=== PATIENT | male | born 1940 | race Caucasian/White ===

== ENCOUNTER 2017-04-21 09:50 | Inpatient (IN) ==
--- NOTE | 2017-04-21 10:02 | Emergency Department Note ---
Disposition Clinical Impression: Calculus of kidney Constipation Qualifiers: Constipation type: unspecified constipation type Qualified Code(s): K59.00 - Constipation, unspecified Disposition: Admitted As Inpatient Referrals: Jose Seymour DO [Primary Care Provider] - Forms: Work/School Release, ED Satisfaction Letter Abdominal Pain HPI - General Chief Complaint: ED Abdominal Pain Stated Complaint: abd pain s/p surgery Time Seen by Provider: 04/21/17 10:00 Source: patient Limitations: no limitations Nursing Notes Reviewed: Yes Vital Signs Reviewed: Yes - History of Present Illness HPI Narrative: Patient is a 76-year-old male who had a hernia repair 5 days ago was complaining of constipation. He states he called the office he increased his Colace dosings only tried 1 dose of MiraLAX is also tried [id number] laxatives which is minimal bowel movement. He states he is having diffuse abdominal pain and distention. Pt Subjective Complaint: abdominal pain Onset (ago): day(s) (5) Consistency: constant Location: diffuse Pain Severity: mild Pain Scale: 9 Quality: cramping, aching Radiation: none Migration to: no migration Improves with: nothing Worsens with: nothing Context: recent surgery/procedure Associated symptoms: Reports: constipation (very little stool in 5 days. ) - Related Data Home Medications Medication Instructions Recorded Confirmed Albuterol Sulfate [Albuterol 1 puff IH Q4H PRN 08/21/15 04/21/17 Inhaler] Atorvastatin Calcium [Lipitor] 20 mg PO 1700 08/21/15 04/21/17 Bupropion HCl [Wellbutrin Xl] 300 mg PO DAILY 08/21/15 04/21/17 Fluticasone/Salmeterol [Advair 1 each IH BID 08/21/15 04/21/17 250-50 Diskus] Insulin Glargine,Hum.rec.anlog 60 unit SQ HS 08/21/15 04/21/17 [Lantus Solostar] Loratadine [Claritin] 10 mg PO DAILY 08/21/15 04/21/17 Metoprolol [Lopressor] 25 mg PO BID 08/21/15 04/21/17 Pantoprazole Sodium 40 mg PO DAILY 08/21/15 04/21/17 Sertraline [Zoloft] 200 mg PO DAILY 08/21/15 04/21/17 Tamsulosin [Flomax] 0.4 mg PO HS 08/21/15 04/21/17 Tiotropium [Spiriva] 1 cap IH HS 08/21/15 04/21/17 Cholecalciferol (Vitamin D3) 2,000 unit PO DAILY 12/18/15 04/21/17 [Vitamin D3] Folic Acid 1 mg PO DAILY 12/18/15 04/21/17 Insulin LISPRO [Humalog] 15 unit SQ TIDWM 06/19/16 04/21/17 Rivaroxaban [Xarelto] 20 mg PO 1700 10/30/16 04/21/17 [place]-3/Dha/Epa/Fish Oil [Fish Oil 1 cap PO TID 12/04/16 04/21/17 1,000 mg Softgel] Oxygen 2 l NS HS 12/04/16 04/21/17 Ferrous Sulfate 325 mg PO 1700 04/16/17 04/21/17 Furosemide [Lasix] 20 mg PO DAILY PRN 04/16/17 04/21/17 Magnesium Oxide [Magnesium] 400 mg PO BID 04/16/17 04/21/17 Losartan/HCTZ [Hyzaar 50-12.5 1 tab PO DAILY 04/21/17 04/21/17 Tablet] Previous Rx's Medication Instructions Recorded Clopidogrel [Plavix] 75 mg PO DAILY #30 tablet 06/20/16 Nitroglycerin 0.4 mg SL Q5MIN PRN #25 tab.subl 06/20/16 Ascorbic Acid [Vitamin C] 500 mg PO HS #30 tablet 11/03/16 Potassium Chloride 10 meq PO DAILY #30 tab.er.prt 11/03/16 Tramadol HCl [Ultram] 50 mg PO BID PRN #20 tab 04/16/17 Allergies Allergy/AdvReac Type Severity Reaction Status Date / Time codeine Allergy Difficulty Verified 04/21/17 09:58 Breathing Homatropine AdvReac Itching Verified 04/21/17 09:58 hydrocodone AdvReac Itching Verified 04/21/17 09:58 All systems ED: reviewed and negative except as stated. Constitutional: Denies: fever, chills Cardiovascular: Denies: chest pain, dyspnea on exertion, orthopnea Gastrointestinal: Denies: nausea, vomiting, hematemesis Genitourinary: Reports: urgency (but feels like he cant urinate) Abdominal Pain PMH - Past Medical History Medical history: Reports: atrial fibrillation, cancer, COPD, coronary artery disease, diabetes, GERD, hyperlipidemia, hypertension, renal disease, other Male Surgical History: Reports: appendectomy, cholecystectomy, herniorrhaphy, pacemaker/AICD Psychiatric history: Reports: anxiety, depression - Social History Smoking status: Never smoker Alcohol use: Reports: none Drug use: Reports: none Physical Exam - General Limitations: no limitations General appearance: alert, in no apparent distress - Head Head exam: atraumatic, normocephalic, normal inspection - Eye Eye exam: Present: normal appearance, PERRL, EOMI - Expanded Eye Exam Pupils: Left: reactive - ENT ENT exam: normal exam, normal oropharynx, mucous membranes moist - Expanded ENT Exam External ear exam: Present: normal external inspection Mouth exam: Present: normal external inspection Teeth exam: Present: normal inspection Throat exam: Present: normal inspection - Neck Neck exam: Present: normal inspection, full ROM, trachea midline - Chest Chest inspection: Present: normal inspection, symmetric chest wall rise - Respiratory Respiratory exam: Present: normal lung sounds bilaterally - Cardiovascular Cardiovascular exam: Present: regular rate, normal rhythm, normal heart sounds - Abdominal Exam Abdominal exam: Present: soft, distention, normal bowel sounds. Absent: guarding, rebound Abdominal tenderness: Present: diffuse, mild - Extremities Exam Extremities exam: Present: normal inspection, full ROM. Absent: tenderness, pedal edema - Expanded Upper Extremity Exam Shoulder exam: Present: normal inspection, full ROM Arm exam: Present: normal inspection, full ROM Elbow exam: Present: normal inspection, full ROM Forearm/Wrist exam: Present: normal inspection, full ROM Hand exam: Present: normal inspection, full ROM Vascular exam: Normal: capillary refill, radial pulse - Expanded Lower Extremity Exam Hip/Pelvis exam: Present: normal inspection, full ROM Upper leg exam: Present: normal inspection, full ROM Knee exam: Present: normal inspection, full ROM Lower leg exam: Present: normal inspection, full ROM Ankle exam: Present: normal inspection, full ROM Foot/toe exam: Present: normal inspection, full ROM Neurovascular/Tendon exam: Absent: motor deficit, sensory deficit, tendon deficit - Back Exam Back exam: Present: normal inspection, full ROM. Absent: tenderness - Neurological Exam Neurological exam: Present: alert, oriented X3 - Expanded Neurological Exam Patient oriented to: Present: person, place, time Coma Scale Eye Opening: Spontaneous Coma Scale Motor Response: Obeys Commands Coma Scale Verbal Response: Oriented Coma Scale Total: 15 - Psychiatric Psychiatric exam: Present: normal affect, normal mood - Skin Skin exam: Present: warm, dry, intact, normal color Course Course Narrative: Dr. Kruse and also Dr. Archuleta both made aware of the patient patient has a 6 mm right ureteral stone and constipation has been taking postop pain medication Vital Signs Temperature 97.7 F 04/21/17 09:55 Pulse Rate 74 04/21/17 09:55 Respiratory Rate 16 04/21/17 09:55 Blood Pressure 124/65 04/21/17 09:55 O2 Sat by Pulse Oximetry 98 04/21/17 09:55 Temperature 97.7 F 04/21/17 09:55 Pulse Rate 83 04/21/17 13:08 Respiratory Rate 18 04/21/17 13:08 Blood Pressure 136/87 04/21/17 13:08 O2 Sat by Pulse Oximetry 95 04/21/17 13:08 Oxygen Delivery Oxygen Delivery Room Air Abdominal Pain - Differential Diagnosis Differential Diagnosis: Likely: calculus of kidney, constipation, colonic obstruction, diverticulitis, diverticulosis, ischemic bowel - Medical Records Medical records reviewed: Yes I reviewed the patient's medical records. - Lab Data Lab results reviewed: Yes I reviewed the patient's lab results. Result diagrams: 04/21/17 10:10 04/21/17 10:10 Lab Results 04/21/17 04/21/17 04/21/17 Range/Units 10:10 10:10 10:10 WBC 12.3 H (4.3-11.1) K/mcL RBC 4.91 (4.19-5.50) M/mcL Hgb 12.5 L (12.9-16.9) g/dL Hct 39.2 (37.5-50.1) % MCV 79.8 L (83.0-100.0) fL MCH 25.5 L (28.0-33.3) pg MCHC 31.9 (31.6-35.5) g/dL RDW 18.7 H (11.5-14.5) % Plt Count 201 (140-400) K/mcL MPV 9.6 (9.4-12.4) fL Immature Gran % 0.2 (0-4) % Seg Neutrophils % 85.0 % Lymphocytes % 7.8 % Monocytes % 5.3 % Eosinophils % 1.4 % Basophils % 0.3 % Neutrophils # 10.4 H (1.6-8.9) K/mcL Lymphocytes # 1.0 (0.6-4.6) K/mcL Monocytes # 0.7 (0.0-1.3) K/mcL Eosinophils # 0.2 (0.0-0.6) K/mcL Basophils # 0.0 (0.0-0.2) K/mcL PT 15.3 H (9.4-12.1) Seconds INR 1.4 APTT 36.5 H (26.0-36.0) Seconds Sodium 135 L (136-145) mEq/L Potassium 4.0 (3.5-4.5) mEq/L Chloride 98 (98-109) mEq/L Carbon Dioxide 30 H (19-29) mEq/L BUN 24 (8-26) mg/dL Creatinine 1.22 (0.72-1.25) mg/dL Est GFR ( Amer) > 60 (> 60) Est GFR (Non-Af Amer) 58 L (> 60) BUN/Creatinine Ratio 20 (6-26) Glucose 88 (70-99) mg/dL Calculated Osmolality 283 (280-300) Lactic Acid (0.5-2.2) mmol/L Calcium 9.9 (8.6-10.8) mg/dL Total Bilirubin 0.9 (0.2-1.2) mg/dL Direct Bilirubin 0.4 (0.0-0.5) mg/dL Indirect Bilirubin 0.5 (0.0-1.2) mg/dL AST 12 (5-34) Units/L ALT 14 (0-55) Units/L Alkaline Phosphatase 61 (38-126) Units/L Serum Total Protein 7.5 (6.0-8.3) g/dL Albumin 3.8 (3.5-5.0) g/dL Globulin 3.7 H (2.4-3.5) g/dL Albumin/Globulin Ratio 1.0 L (1.1-2.2) Amylase 29 (25-125) Units/L Lipase 17 (8-78) Units/L // Range/Units 10:10 WBC (4.3-11.1) K/mcL RBC (4.19-5.50) M/mcL Hgb (12.9-16.9) g/dL Hct (37.5-50.1) % MCV (83.0-100.0) fL MCH (28.0-33.3) pg MCHC (31.6-35.5) g/dL RDW (11.5-14.5) % Plt Count (140-400) K/mcL MPV (9.4-12.4) fL Immature Gran % (0-4) % Seg Neutrophils % % Lymphocytes % % Monocytes % % Eosinophils % % Basophils % % Neutrophils # (1.6-8.9) K/mcL Lymphocytes # (0.6-4.6) K/mcL Monocytes # (0.0-1.3) K/mcL Eosinophils # (0.0-0.6) K/mcL Basophils # (0.0-0.2) K/mcL PT (9.4-12.1) Seconds INR APTT (26.0-36.0) Seconds Sodium (136-145) mEq/L Potassium (3.5-4.5) mEq/L Chloride (98-109) mEq/L Carbon Dioxide (19-29) mEq/L BUN (8-26) mg/dL Creatinine (0.72-1.25) mg/dL Est GFR ( Amer) (> 60) Est GFR (Non-Af Amer) (> 60) BUN/Creatinine Ratio (6-26) Glucose (70-99) mg/dL Calculated Osmolality (280-300) Lactic Acid 1.5 (0.5-2.2) mmol/L Calcium (8.6-10.8) mg/dL Total Bilirubin (0.2-1.2) mg/dL Direct Bilirubin (0.0-0.5) mg/dL Indirect Bilirubin (0.0-1.2) mg/dL AST (5-34) Units/L ALT (0-55) Units/L Alkaline Phosphatase (38-126) Units/L Serum Total Protein (6.0-8.3) g/dL Albumin (3.5-5.0) g/dL Globulin (2.4-3.5) g/dL Albumin/Globulin Ratio (1.1-2.2) Amylase (25-125) Units/L Lipase (8-78) Units/L - Radiology Data Radiology results reviewed: Yes I reviewed the patient's radiology results.
[2017-04-21 10:23] LABS: Basophils % 0.3 %; Eosinophils # 0.2 K/mcL (0.0-0.6); Eosinophils % 1.4 %; Hematocrit 39.2 % (37.5-50.1); Hemoglobin 12.5 g/dL (12.9-16.9); Immature Granulocytes % 0.2 % (0-4); Lymphocytes % 7.8 %; Mean Corpuscular HGB Conc 31.9 g/dL (31.6-35.5); Mean Corpuscular Hemoglobin 25.5 pg (28.0-33.3); Mean Corpuscular Volume 79.8 fL (83.0-100.0); Mean Platelet Volume 9.6 fL (9.4-12.4); Monocytes # 0.7 K/mcL (0.0-1.3); Monocytes % 5.3 %; Neutrophils # 10.4 K/mcL (1.6-8.9); Platelet Count 201 K/mcL (140-400); Red Blood Count 4.91 M/mcL (4.19-5.50); Red Cell Distribution Width 18.7 % (11.5-14.5)
[2017-04-21 10:24] LABS: INR 1.4; Prothrombin Time 15.3 Seconds (9.4-12.1)
[2017-04-21 10:26] LABS: Activated Partial Thrombo Time 36.5 Seconds (26.0-36.0)
[2017-04-21 10:31] LABS: Alanine Aminotransferase 14 Units/L (0-55); Albumin 3.8 g/dL (3.5-5.0); Alkaline Phosphatase 61 Units/L (38-126); Amylase 29 Units/L (25-125); Aspartate Amino Transferase 12 Units/L (5-34); BUN/Creatinine Ratio 20 (6-26); Bilirubin,Direct 0.4 mg/dL (0.0-0.5); Bilirubin,Indirect 0.5 mg/dL (0.0-1.2); Bilirubin,Total 0.9 mg/dL (0.2-1.2); Blood Urea Nitrogen 24 mg/dL (8-26); Calcium 9.9 mg/dL (8.6-10.8); Carbon Dioxide 30 mEq/L (19-29); Chloride 98 mEq/L (98-109); Globulin 3.7 g/dL (2.4-3.5); Glucose 88 mg/dL (70-99); Lipase 17 Units/L (8-78); Osmolality,Calculated 283 (280-300); Sodium 135 mEq/L (136-145); Total Protein 7.5 g/dL (6.0-8.3); eGFR For African Americans > 60 (> 60); eGFR For Non-African Americans 58 (> 60)
[2017-04-21] MEDS ORDERED: Milk and Molasses Enema 200 ML RC ONE (11:19)
[2017-04-21] MEDS ORDERED: *HR* Morphine 2 MG/ML SYRINGE IVP ONE (12:14)
[2017-04-21] MEDS ORDERED: Ondansetron 4 MG/2 ML VIAL IVP ONE (12:14)
[2017-04-21] MEDS ORDERED: traMADol 50 MG TABLET PO PRN (14:38)
[2017-04-21] MEDS ORDERED: *HR* Dextrose 50 % in Water (Syg) 50 ML SYRINGE IVP PRN (14:43)
[2017-04-21] MEDS ORDERED: D5% in Water 1,000 ML IVC PRN (14:43)
[2017-04-21] MEDS ORDERED: Dextrose Gel 15 GM PO PRN ×2 (14:43)
[2017-04-21] MEDS ORDERED: Naloxone 0.4 MG/ML INJ IVP PRN (14:44)
[2017-04-21] MEDS ORDERED: Ondansetron 4 MG/2 ML VIAL IVP PRN (14:44)
[2017-04-21] MEDS ORDERED: *HR* Morphine 2 MG/ML SYRINGE IVP PRN (14:44)
--- NOTE | 2017-04-21 15:05 | Urology - Consult Note ---
Date of Encounter: 04/21/17 Time of Encounter: 15:04 Urology CN:HPI Consult date: 04/21/17 Reason for consult Urology: Other (bladder calculus) Requesting physician: Jordon Browning History of present illness: Darren is a 76 y/o male with recent lap surgery. has not had bm for 5-6 days and was having sig abd pain. CT was done which showed possible right ureteral stone. On review of ct from march and this one, this stone is a bladder calculus. no hydro present. Past Med Surg Social Fam HX - Past Medical History Medical history: atrial fibrillation, cancer, COPD, coronary artery disease, diabetes, GERD, hyperlipidemia, hypertension, renal disease, other Psychiatric history: anxiety, depression - Past Surgical History Surgical History: angioplasty/stent, appendectomy, cancer surgery, cataract, cholecystectomy, herniorrhaphy, pacemaker/AICD, pacemaker - Social History Smoking Status: Never smoker Smokeless Tobacco Status: No Alcohol use: none Drug use: none - Family History Father Living Status: Hx Family Cardiac Disorders: No Hx Family Respiratory Disorders: No Hx Family Cancer: No Hx Family GI Disorders: No Hx Family Endocrine Disorder: Yes (Diabetes.) Hx Family Neuromuscular Disorders: No Hx Family Neurologic Disorders: No Hx Family HEENT Disorders: No Hx Family Autoimmune Disorders: No Medications and Allergies Albuterol Sulfate [Albuterol Inhaler] 1 puff IH Q4H PRN 08/21/15 [History] Atorvastatin Calcium [Lipitor] 20 mg PO 1700 08/21/15 [History] Bupropion HCl [Wellbutrin Xl] 300 mg PO DAILY 08/21/15 [History] Fluticasone/Salmeterol [Advair 250-50 Diskus] 1 each IH BID 08/21/15 [History] Insulin Glargine,Hum.rec.anlog [Lantus Solostar] 60 unit SQ HS 08/21/15 [History ] Loratadine [Claritin] 10 mg PO DAILY 08/21/15 [History] Metoprolol [Lopressor] 25 mg PO BID 08/21/15 [History] Pantoprazole Sodium 40 mg PO DAILY 08/21/15 [History] Sertraline [Zoloft] 200 mg PO DAILY 08/21/15 [History] Tamsulosin [Flomax] 0.4 mg PO HS 08/21/15 [History] Tiotropium [Spiriva] 1 cap IH HS 08/21/15 [History] Cholecalciferol (Vitamin D3) [Vitamin D3] 2,000 unit PO DAILY 12/18/15 [History] Folic Acid 1 mg PO DAILY 12/18/15 [History] Insulin LISPRO [Humalog] 15 unit SQ TIDWM 06/19/16 [History] Clopidogrel [Plavix] 75 mg PO DAILY #30 tablet 06/20/16 [Rx] Nitroglycerin 0.4 mg SL Q5MIN PRN #25 tab.subl 06/20/16 [Rx] Rivaroxaban [Xarelto] 20 mg PO 1700 10/30/16 [History] Ascorbic Acid [Vitamin C] 500 mg PO HS #30 tablet 11/03/16 [Rx] Potassium Chloride 10 meq PO DAILY #30 tab.er.prt 11/03/16 [Rx] [place]-3/Dha/Epa/Fish Oil [Fish Oil 1,000 mg Softgel] 1 cap PO TID 12/04/16 [ History] Oxygen 2 l NS HS 12/04/16 [History] Ferrous Sulfate 325 mg PO 1700 04/16/17 [History] Furosemide [Lasix] 20 mg PO DAILY PRN 04/16/17 [History] Magnesium Oxide [Magnesium] 400 mg PO BID 04/16/17 [History] Tramadol HCl [Ultram] 50 mg PO BID PRN #20 tab 04/16/17 [Rx] Losartan/HCTZ [Hyzaar 50-12.5 Tablet] 1 tab PO DAILY 04/21/17 [History] Allergies codeine Allergy (Verified 04/21/17 09:58) Difficulty Breathing Homatropine Adverse Reaction (Verified 04/21/17 09:58) Itching hydrocodone Adverse Reaction (Verified 04/21/17 09:58) Itching Review of Systems - Constitutional no chills - EENT Nose, mouth and throat: no dizziness - Cardiovascular no chest pain - Respiratory no cough - Gastrointestinal abdominal pain Exam Initial Vital Signs Temp Pulse Resp BP Pulse Ox 97.7 F 74 16 124/65 98 04/21/17 09:55 04/21/17 09:55 04/21/17 09:55 04/21/17 09:55 04/21/17 09:55 - General physical appearance Present: well developed - Eyes Present: PERRL - ENT Present: normal nares - Neck Present: no masses - Respiratory Present: normal respiratory effort - Cardiovascular Cardiovascular exam IM: RRR - Abdomen Abdomen: Present: soft Urology Results - Labs 04/21/17 10:10 04/21/17 10:10 Abnormal lab results WBC 12.3 K/mcL (4.3-11.1) H 04/21/17 10:10 Hgb 12.5 g/dL (12.9-16.9) L 04/21/17 10:10 MCV 79.8 fL (83.0-100.0) L 04/21/17 10:10 MCH 25.5 pg (28.0-33.3) L 04/21/17 10:10 RDW 18.7 % (11.5-14.5) H 04/21/17 10:10 Neutrophils # 10.4 K/mcL (1.6-8.9) H 04/21/17 10:10 PT 15.3 Seconds (9.4-12.1) H 04/21/17 10:10 APTT 36.5 Seconds (26.0-36.0) H 04/21/17 10:10 Sodium 135 mEq/L (136-145) L 04/21/17 10:10 Carbon Dioxide 30 mEq/L (19-29) H 04/21/17 10:10 Est GFR (Non-Af Amer) 58 (> 60) L 04/21/17 10:10 Globulin 3.7 g/dL (2.4-3.5) H 04/21/17 10:10 Albumin/Globulin Ratio 1.0 (1.1-2.2) L 04/21/17 10:10 All other labs normal. - Imaging CT scan - abdomen: image reviewed CT scan - pelvis: image reviewed Consult Discharge Plan - Plan Referrals: Jose Seymour DO [Primary Care Provider] -
--- NOTE | 2017-04-21 15:06 | Event Note ---
Date of Encounter: 04/21/17 Time of Encounter: 15:05 Please link to consult note A/P 1. bladder stone - no urgent need for surgical removal. f/u with Dr. Alegre in 3-4 weeks for discussion of removal.
--- NOTE | 2017-04-21 15:06 | Internal Med History&Physical ---
Date of Encounter: 04/21/17 Time of Encounter: 15:03 Assessment and Plan (1) Ureteral calculus, right Current visit: Yes Status: Acute Right lower quadrant abdominal pain and CT imaging findings of right UVJ stone and support of diagnosis of symptomatic right ureteral stone. We will treat with IV morphine, IV fluids, urology consult was called by the ED. We will obtain urinalysis and culture if indicated. He is at high risk for morbidity mortality and complications due to IV controlled substances. (2) Constipation by delayed colonic transit Current visit: Yes Status: Acute No BM in 4 days. We will start senna and Colace. Rectal Dulcolax. Enema as needed. Gen. surgery was consulted due to recent laparoscopic hernia repair and concern for postop complication. (3) CAD (coronary artery disease), [place] coronary artery Current visit: No Status: Acute Continue with aspirin and Plavix. Qualifiers: [place] vs. transplanted heart: [place] heart Associated angina: without angina Qualified Code(s): I25.10 - Atherosclerotic heart disease of [place] coronary artery without angina pectoris (4) Age-related physical debility Current visit: No Status: Chronic (5) COPD (chronic obstructive pulmonary disease) Current visit: No Status: Chronic PT OT evaluation. Qualifiers: COPD type: unspecified COPD Qualified Code(s): J44.9 - Chronic obstructive pulmonary disease, unspecified (6) Afib Current visit: No Status: Chronic We will continue home dose of metoprolol. Continue with Xarelto anticoagulation. Qualifiers: Atrial fibrillation type: paroxysmal Qualified Code(s): I48.0 - Paroxysmal atrial fibrillation (7) DM2 (diabetes mellitus, type 2) Current visit: No Status: Chronic Diabetic diet, start Levemir. Pre-meal insulin and corrective sliding scale. 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 Internal Medicine - H&P: HPI Chief complaint: Abdominal pain Admitted From: Emergency Dept Plans for Post Hospital Care: Home History of present illness: Mr. Vizcarra is a 76 year old male with multiple medical comorbidities who presented to the hospital for abdominal pain. He had a laparoscopic hernia repair done 5 days ago. Since then he reported increasing right lower quadrant crampy abdominal pain, 3 days ago started getting much worse, additionally started having constipation and has not had a bowel movement for the last 4 days. He also reports decreased urinary flow but no hematuria or burning with urination or dysuria. He has been taking tramadol for pain with no relief. Upon evaluation in the emergency department he was found to have constipation and a right UVJ stone. He was referred for admission to our service. A 10 point review of systems was performed and positive [place] history of present illness, additionally positive for hearing loss and age-related vision impairment, positive for chronic hip pain. Otherwise negative. Family history positive for coronary artery disease in the patient's father Past Med Surg Social Fam HX - Past Medical History Medical history: atrial fibrillation, cancer, COPD, coronary artery disease, diabetes, GERD, hyperlipidemia, hypertension, renal disease, other Psychiatric history: anxiety, depression - Past Surgical History Surgical History: angioplasty/stent, appendectomy, cancer surgery, cataract, cholecystectomy, herniorrhaphy, pacemaker/AICD, pacemaker - Social History Smoking Status: Never smoker Smokeless Tobacco Status: No Alcohol use: none Drug use: none - Family History Father Living Status: Hx Family Cardiac Disorders: No Hx Family Respiratory Disorders: No Hx Family Cancer: No Hx Family GI Disorders: No Hx Family Endocrine Disorder: Yes (Diabetes.) Hx Family Neuromuscular Disorders: No Hx Family Neurologic Disorders: No Hx Family HEENT Disorders: No Hx Family Autoimmune Disorders: No Internal Medicine - H&P: Meds Albuterol Sulfate [Albuterol Inhaler] 1 puff IH Q4H PRN 08/21/15 [History] Atorvastatin Calcium [Lipitor] 20 mg PO 1700 08/21/15 [History] Bupropion HCl [Wellbutrin Xl] 300 mg PO DAILY 08/21/15 [History] Fluticasone/Salmeterol [Advair 250-50 Diskus] 1 each IH BID 08/21/15 [History] Insulin Glargine,Hum.rec.anlog [Lantus Solostar] 60 unit SQ HS 08/21/15 [History ] Loratadine [Claritin] 10 mg PO DAILY 08/21/15 [History] Metoprolol [Lopressor] 25 mg PO BID 08/21/15 [History] Pantoprazole Sodium 40 mg PO DAILY 08/21/15 [History] Sertraline [Zoloft] 200 mg PO DAILY 08/21/15 [History] Tamsulosin [Flomax] 0.4 mg PO HS 08/21/15 [History] Tiotropium [Spiriva] 1 cap IH HS 08/21/15 [History] Cholecalciferol (Vitamin D3) [Vitamin D3] 2,000 unit PO DAILY 12/18/15 [History] Folic Acid 1 mg PO DAILY 12/18/15 [History] Insulin LISPRO [Humalog] 15 unit SQ TIDWM 06/19/16 [History] Clopidogrel [Plavix] 75 mg PO DAILY #30 tablet 06/20/16 [Rx] Nitroglycerin 0.4 mg SL Q5MIN PRN #25 tab.subl 06/20/16 [Rx] Rivaroxaban [Xarelto] 20 mg PO 1700 10/30/16 [History] Ascorbic Acid [Vitamin C] 500 mg PO HS #30 tablet 11/03/16 [Rx] Potassium Chloride 10 meq PO DAILY #30 tab.er.prt 11/03/16 [Rx] [place]-3/Dha/Epa/Fish Oil [Fish Oil 1,000 mg Softgel] 1 cap PO TID 12/04/16 [ History] Oxygen 2 l NS HS 12/04/16 [History] Ferrous Sulfate 325 mg PO 1700 04/16/17 [History] Furosemide [Lasix] 20 mg PO DAILY PRN 04/16/17 [History] Magnesium Oxide [Magnesium] 400 mg PO BID 04/16/17 [History] Tramadol HCl [Ultram] 50 mg PO BID PRN #20 tab 04/16/17 [Rx] Losartan/HCTZ [Hyzaar 50-12.5 Tablet] 1 tab PO DAILY 04/21/17 [History] Allergies codeine Allergy (Verified 04/21/17 09:58) Difficulty Breathing Homatropine Adverse Reaction (Verified 04/21/17 09:58) Itching hydrocodone Adverse Reaction (Verified 04/21/17 09:58) Itching All Systems PM: A 10-system review of systems was performed and is negative for pertinent findings except as documented above in the HPI. - Constitutional Vitals: Temp Pulse Resp BP Pulse Ox 97.7 F 83 18 128/73 95 04/21/17 09:55 04/21/17 13:08 04/21/17 14:24 04/21/17 14:24 04/21/17 13:08 - Eye Eye exam: Present: PERRL, conjuntiva pink, sclera anicteric Pupils: Present: PERRL - Respiratory Respiratory exam: Present: CTAB. Absent: accessory muscle use, rales, rhonchi, wheezes - Cardiovascular Cardiovascular exam: Present: RRR, +S1, +S2. Absent: diastolic murmur, gallop, rubs, systolic murmur - GI/Abdominal GI/Abdominal exam: Present: normal bowel sounds, soft, no peritoneal signs. Absent: distended, guarding, tenderness Additional comments: Laparoscopy incisions appearing to be healing. - Extremities Exam Extremities exam: Present: warm, radial pulses palpable and symetrical. Absent : calf tenderness, cyanotic, pedal edema - Neurological Exam Neurological exam: Present: CN II-XII intact, oriented X3, no focal deficits. Absent: pronater drift, facial droop, speech deficit - Skin Skin exam: Present: dry, intact Internal Med - H&P Results - Labs CBC & Chem 7: 04/21/17 10:10 04/21/17 10:10
[2017-04-21 15:41] LABS: Bilirubin,Urine Negative (Negative); Blood,Urine Negative (Negative); Clarity,Urine Clear (Clear); Color,Urine Yellow (Yellow); Glucose,Urine (UA) Normal (Normal); Ketones,Urine Negative (Negative); Leukocyte Esterase,Urine Negative (Negative); Nitrite,Urine Negative (Negative); PH,Urine 6.5 pH Units (5.0-8.0); Protein,Urine Negative (Neg-Trace); Specific Gravity,Urine 1.016 (1.010-1.025); Urobilinogen,Urine Normal (Normal)
[2017-04-21] MEDS: 0.9 % Sodium Chloride 1,000 ML IVC SCH (15:41)
[2017-04-21] MEDS: Bisacodyl 10 MG RECTAL SUPPOSITORY RC SCH (15:42)
[2017-04-21] MEDS ORDERED: *HR* Rivaroxaban 10 MG TABLET PO SCH (17:00)
[2017-04-21] MEDS: Insulin LISPRO 300 UNITS/3 ML VIAL SQ SCH ×2 (18:21→18:22)
[2017-04-21] MEDS: Budesonide/Formoterol 80/4.5 MDI IH SCH (19:48)
[2017-04-21] MEDS: Sennosides/Docusate Sodium TABLET PO SCH (20:28)
[2017-04-21] MEDS: Magnesium Oxide 400 MG TABLET PO SCH (20:28)
[2017-04-21] MEDS ORDERED: Tiotropium 18 MCG inhalation IH SCH (21:00)
[2017-04-21] MEDS: Insulin DETEMIR 100 UNIT/ML X5UNITS SQ SCH (21:38)
[2017-04-22] MEDS: 0.9 % Sodium Chloride 1,000 ML IVC SCH (01:15)
[2017-04-22 05:09] LABS: Basophils % 0.3 %; Eosinophils # 0.1 K/mcL (0.0-0.6); Eosinophils % 1.4 %; Immature Granulocytes % 0.4 % (0-4); Lymphocytes # 0.9 K/mcL (0.6-4.6); Lymphocytes % 9.2 %; Mean Corpuscular HGB Conc 30.9 g/dL (31.6-35.5); Mean Corpuscular Hemoglobin 24.8 pg (28.0-33.3); Mean Corpuscular Volume 80.3 fL (83.0-100.0); Mean Platelet Volume 9.3 fL (9.4-12.4); Monocytes # 0.6 K/mcL (0.0-1.3); Monocytes % 6.6 %; Platelet Count 186 K/mcL (140-400); Red Blood Count 4.36 M/mcL (4.19-5.50); Red Cell Distribution Width 18.1 % (11.5-14.5); Segmented Neutrophils % 82.1 %
[2017-04-22 05:21] LABS: Hemoglobin 10.8 g/dL (12.9-16.9)
[2017-04-22 05:26] LABS: BUN/Creatinine Ratio 22 (6-26); Blood Urea Nitrogen 24 mg/dL (8-26); Carbon Dioxide 30 mEq/L (19-29); Chloride 101 mEq/L (98-109); Glucose 98 mg/dL (70-99); Osmolality,Calculated 288 (280-300); Potassium 3.8 mEq/L (3.5-4.5); Sodium 137 mEq/L (136-145); eGFR For African Americans > 60 (> 60); eGFR For Non-African Americans > 60 (> 60)
[2017-04-22 05:31] LABS: Calcium 8.4 mg/dL (8.6-10.8)
[2017-04-22] MEDS: Insulin LISPRO 300 UNITS/3 ML VIAL SQ SCH ×6 (07:44→15:44)
[2017-04-22] MEDS ORDERED: BuPROPion XL (24 HR) 150 MG TABLET PO SCH (09:00)
[2017-04-22] MEDS ORDERED: Losartan/HCTZ 50-12.5 TABLET PO SCH (09:00)
[2017-04-22] MEDS: Insulin DETEMIR 100 UNIT/ML X5UNITS SQ SCH (09:10)
[2017-04-22] MEDS: Magnesium Oxide 400 MG TABLET PO SCH (09:11)
[2017-04-22] MEDS: Bisacodyl 10 MG RECTAL SUPPOSITORY RC SCH (09:11)
[2017-04-22] MEDS: Sennosides/Docusate Sodium TABLET PO SCH (09:11)
--- NOTE | 2017-04-22 09:25 | Internal Med Progress Note ---
Date of Encounter: 04/22/17 Time of Encounter: 09:22 - Assessment and plan (1) Abdominal pain Current Visit: Yes Status: Acute Assessment and plan: Patient admitted for right lower quadrant pain. Apparently he is quite constipated after surgery. There was a confusion based on CT scan findings showed right UPJ stone however urology disagree with this finding and think stone is in the bladder and there is no hydronephrosis. Patient pain is treated symptomatically while we are trying to resolve constipation issue. Qualifiers: Abdominal location: right lower quadrant Qualified Code(s): R10.31 - Right lower quadrant pain (2) Calculus of kidney Current Visit: Yes Status: Acute Assessment and plan: As noted above strong as it actually in the bladder and there is no hydronephrosis urology has already seen the patient (3) Constipation by delayed colonic transit Current Visit: Yes Status: Acute Assessment and plan: Patient is on multiple stool softeners (4) Afib Current Visit: No Status: Chronic Qualifiers: Atrial fibrillation type: paroxysmal Qualified Code(s): I48.0 - Paroxysmal atrial fibrillation (5) DM2 (diabetes mellitus, type 2) Current Visit: No Status: Chronic Qualifiers: Diabetes mellitus complication status: with hyperglycemia Diabetes mellitus quality control lead insulin use: with quality control lead use Qualified Code(s): E11.65 - Type 2 diabetes mellitus with hyperglycemia; Z79.4 - detention (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 insulin - Subjective Interval history: Mr. Maria Antonia Vizcarra is a 76-year-old male who presents to the herniorrhaphy and has developed constipation and last 4 days. He came in with right lower quadrant pain and initial CAT scan showed UPJ stone however as neurology reviewed the CAT scan and they felt that the stone is rather in the bladder. Patient has been started on enema to resolve constipation. - Constitutional Vitals: Temp Pulse Resp BP Pulse Ox 98.2 F 69 18 117/64 93 04/22/17 07:28 04/22/17 07:28 04/22/17 07:28 04/22/17 07:28 04/22/17 07:28 - Head Head exam: Present: atraumatic, normocephalic - Eye Eye exam: Present: PERRL, conjuntiva pink, sclera anicteric Pupils: Present: PERRL - Neck Neck exam general surgery: Present: supple, trachea midline. Absent: lymphadenopathy - Respiratory Respiratory exam: Present: CTAB. Absent: accessory muscle use, rales, rhonchi, wheezes - Cardiovascular Cardiovascular exam: Present: RRR, +S1, +S2. Absent: diastolic murmur, gallop, rubs, systolic murmur - Extremities Exam Extremities exam: Present: warm, radial pulses palpable and symetrical. Absent : calf tenderness, cyanotic, pedal edema - Neurological Exam Neurological exam: Present: CN II-XII intact, oriented X3, no focal deficits. Absent: pronater drift, facial droop, speech deficit - Skin Skin exam: Present: dry, intact Internal Medicine: Result - Labs CBC & Chem 7: 04/22/17 04:20 04/22/17 04:20 Labs: Short CBC 04/22/17 Range/Units 04:20 WBC 9.7 (4.3-11.1) K/mcL Hgb 10.8 L D (12.9-16.9) g/dL Hct 35.0 L (37.5-50.1) % Plt Count 186 (140-400) K/mcL Neutrophils # 8.0 (1.6-8.9) K/mcL BMP 04/22/17 04:20 Sodium 137 Potassium 3.8 Chloride 101 Carbon Dioxide 30 H BUN 24 Creatinine 1.09 Glucose 98 Calcium 8.4 L D - ABG Interpretation ABG results: PT/INR, D-dimer PT 15.3 Seconds (9.4-12.1) H 04/21/17 10:10 Consult Discharge Plan - Plan Referrals: Jose Seymour DO [Primary Care Provider] -
[2017-04-22] MEDS: Budesonide/Formoterol 80/4.5 MDI IH SCH (10:55)
[2017-04-22 11:15] VITALS: BP 107/53
[2017-04-22] MEDS ORDERED: 0.9 % Sodium Chloride 1,000 ML IVC SCH (12:45)
--- NOTE | 2017-04-22 15:06 | Discharge Summary ---
Date of Encounter: 04/22/17 Time of Encounter: 15:04 - Discharge Diagnosis (1) Abdominal pain Priority: Primary Status: Acute Qualifiers: Abdominal location: right lower quadrant Qualified Code(s): R10.31 - Right lower quadrant pain (2) Calculus of kidney Priority: Secondary Status: Acute (3) Constipation by delayed colonic transit Priority: Primary Status: Acute (4) Afib Priority: Secondary Status: Chronic Qualifiers: Atrial fibrillation type: paroxysmal Qualified Code(s): I48.0 - Paroxysmal atrial fibrillation (5) DM2 (diabetes mellitus, type 2) Priority: Secondary Status: Chronic Qualifiers: Diabetes mellitus complication status: with hyperglycemia Diabetes mellitus snf insulin use: with snf use Qualified Code(s): E11.65 - Type 2 diabetes mellitus with hyperglycemia; Z79.4 - staff educator (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 insulin - Discharge Medications Home Medications: Albuterol Sulfate [Albuterol Inhaler] 1 puff IH Q4H PRN 08/21/15 [History] Atorvastatin Calcium [Lipitor] 20 mg PO 1700 08/21/15 [History] Bupropion HCl [Wellbutrin Xl] 300 mg PO DAILY 08/21/15 [History] Fluticasone/Salmeterol [Advair 250-50 Diskus] 1 each IH BID 08/21/15 [History] Insulin Glargine,Hum.rec.anlog [Lantus Solostar] 60 unit SQ HS 08/21/15 [History ] Loratadine [Claritin] 10 mg PO DAILY 08/21/15 [History] Metoprolol [Lopressor] 25 mg PO BID 08/21/15 [History] Pantoprazole Sodium 40 mg PO DAILY 08/21/15 [History] Sertraline [Zoloft] 200 mg PO DAILY 08/21/15 [History] Tamsulosin [Flomax] 0.4 mg PO HS 08/21/15 [History] Tiotropium [Spiriva] 1 cap IH HS 08/21/15 [History] Cholecalciferol (Vitamin D3) [Vitamin D3] 2,000 unit PO DAILY 12/18/15 [History] Folic Acid 1 mg PO DAILY 12/18/15 [History] Insulin LISPRO [Humalog] 15 unit SQ TIDWM 06/19/16 [History] Clopidogrel [Plavix] 75 mg PO DAILY #30 tablet 06/20/16 [Rx] Nitroglycerin 0.4 mg SL Q5MIN PRN #25 tab.subl 06/20/16 [Rx] Rivaroxaban [Xarelto] 20 mg PO 1700 10/30/16 [History] Ascorbic Acid [Vitamin C] 500 mg PO HS #30 tablet 11/03/16 [Rx] Potassium Chloride 10 meq PO DAILY #30 tab.er.prt 11/03/16 [Rx] [place]-3/Dha/Epa/Fish Oil [Fish Oil 1,000 mg Softgel] 1 cap PO TID 12/04/16 [ History] Oxygen 2 l NS HS 12/04/16 [History] Ferrous Sulfate 325 mg PO 1700 04/16/17 [History] Furosemide [Lasix] 20 mg PO DAILY PRN 04/16/17 [History] Magnesium Oxide [Magnesium] 400 mg PO BID 04/16/17 [History] Tramadol HCl [Ultram] 50 mg PO BID PRN #20 tab 04/16/17 [Rx] Losartan/HCTZ [Hyzaar 50-12.5 Tablet] 1 tab PO DAILY 04/21/17 [History] Allergies/Adverse Reactions: Allergies codeine Allergy (Verified 04/21/17 09:58) Difficulty Breathing Homatropine Adverse Reaction (Verified 04/21/17 09:58) Itching hydrocodone Adverse Reaction (Verified 04/21/17 09:58) Itching Date of admission: 04/21/17 14:44 Primary care physician: Jose Seymour DO Consults: 04/21/17 14:55 Consult to Occupational Therapy [CONS] Routine Comment: Evaluate, develop and implement POC Reason for Consult: Deconditioning Discharging clinician: Andi Sung Anticipated date of discharge: 04/22/17 - Patient Status Disposition: Home, Self-Care Condition: Fair Functional capacity at discharge: independent ambulation Overall status at discharge: patient is back to baseline - Discharge Instructions Follow Up With: Jose Seymour DO [Primary Care Provider] - - Diet and Activity Activity: increase activity as tolerated Diet: advance to your usual diet, low fat, low cholesterol, low salt diet Interval History: Mr. Latoya Vizcarra is a [id number]-year-old male who was admitted for constipation and right lower quadrant abdominal pain. Apparently he had laparoscopic right inguinal herniorrhaphy 5 days ago and since surgery he is unable to have any bowel movement. As it become intolerable and he came to the hospital where a CT abdomen raise the possibility of right UPJ stone. Urology has seen the patient this morning and felt that the stone is actually inside the bladder and ureter are clear and there is no hydronephrosis. They recommended to let patient go home. Patient was given bowel preps and IV fluids and he had a big bowel movement and feel relief. Is tolerating diet and wants to go home. I have advised him to take Colace 100 mg twice a day on daily basis and follow for 7 days use low fiber diet but after that he can switch to high fiber diet. He has Colace at home. He will follow with his family doctor. Hospital course: Mr. Vizcarra is a 76 year old male - Time Spent with Patient Total time spent providing and/or coordinating discharge services: Greater than 30 minutes - Constitutional Vitals: Temp Pulse Resp BP Pulse Ox 97.9 F 73 18 107/53 95 04/22/17 11:12 04/22/17 11:12 04/22/17 11:12 04/22/17 11:12 04/22/17 11:12 - Head Head exam: Present: atraumatic, normocephalic - Eye Eye exam: Present: PERRL, conjuntiva pink, sclera anicteric Pupils: Present: PERRL - Neck Neck exam general surgery: Present: supple, trachea midline. Absent: lymphadenopathy - Respiratory Respiratory exam: Present: CTAB. Absent: accessory muscle use, rales, rhonchi, wheezes - Cardiovascular Cardiovascular exam: Present: RRR, +S1, +S2. Absent: diastolic murmur, gallop, rubs, systolic murmur - GI/Abdominal GI/Abdominal exam: Present: normal bowel sounds, soft, no peritoneal signs. Absent: distended, tenderness Additional comments: Mild tenderness at lower right quadrant where he had right inguinal herniorrhaphy 5 days ago - Extremities Exam Extremities exam: Present: warm, radial pulses palpable and symetrical. Absent : calf tenderness, cyanotic, pedal edema - Neurological Exam Neurological exam: Present: CN II-XII intact, oriented X3, no focal deficits. Absent: pronater drift, facial droop, speech deficit - Skin Skin exam: Present: dry, intact
[2017-04-22] MEDS ORDERED: Insulin LISPRO 300 UNITS/3 ML VIAL SQ SCH (21:00)
== END 2017-04-22 16:34 | disposition home or self-care (01) | DRG 392 ==
LOC: 3ANU 09:50 → EMEROO 09:50 → 3ANU 14:44
PROVIDERS: ADMIT Internal Medicine; ATTEND Internal Medicine

== ENCOUNTER 2017-05-10 10:18 | Observation (INO) ==
[2017-05-10 10:44] LABS: Basophils # 0.1 K/mcL (0.0-0.2); Basophils % 0.5 %; Eosinophils # 0.2 K/mcL (0.0-0.6); Eosinophils % 2.1 %; Hematocrit 37.9 % (37.5-50.1); Hemoglobin 11.6 g/dL (12.9-16.9); Immature Granulocytes % 0.4 % (0-4); Lymphocytes # 0.9 K/mcL (0.6-4.6); Lymphocytes % 8.4 %; Mean Corpuscular HGB Conc 30.6 g/dL (31.6-35.5); Mean Corpuscular Hemoglobin 24.2 pg (28.0-33.3); Mean Corpuscular Volume 79.1 fL (83.0-100.0); Monocytes # 0.6 K/mcL (0.0-1.3); Monocytes % 5.6 %; Neutrophils # 9.3 K/mcL (1.6-8.9); Platelet Count 325 K/mcL (140-400); Red Blood Count 4.79 M/mcL (4.19-5.50); Red Cell Distribution Width 18.7 % (11.5-14.5)
--- NOTE | 2017-05-10 10:47 | Emergency Department Note ---
Disposition Clinical Impression: Unstable angina, Troponin level elevated Hypotension Qualifiers: Hypotension type: orthostatic hypotension Qualified Code(s): I95.1 - Orthostatic hypotension Disposition: Admitted As Inpatient Condition: Fair Referrals: NO,PCP [Non-Partnered Physician] - General Adult HPI - General Stated complaint: hypotension sent from pcp Time Seen by Provider: 05/10/17 10:26 Source: patient, family Limitations: no limitations Nursing Notes Reviewed: Yes Vital Signs Reviewed: Yes - History of Present Illness HPI Narrative: Chief complaint is low blood pressure. History: This is a 76-year-old gentleman who came into his doctor's office today to be seen. His blood pressures were running low at home. 3 days ago they took him off his beta blockers they thought that might be the reason. Blood pressures then were in the low 100s. Today went down to 96 systolic, but his heart rate has gone up into the 1 teens. He says he feels weak. This is a generalized weakness no focal weakness. He denies any chest pain or shortness of breath. He denies abdominal pain. No nausea no vomiting. He is up and and laboratory here. His doctor sent him to the emergency department for a check. He is also sees Dr. Vergara for cardiology. He had stents placed several years ago. Has had no cardiac issues since then. His primary doctor, Dr. Seymour is out for the holiday. Could not see him today. Past medical history reviewed, nurse's notes reviewed, allergies reviewed, med list reviewed. Pain Scale: 0 - Related Data Home Medications Medication Instructions Recorded Confirmed Albuterol Sulfate [Albuterol 1 puff IH Q4H PRN 08/21/15 04/21/17 Inhaler] Atorvastatin Calcium [Lipitor] 20 mg PO 1700 08/21/15 04/21/17 Bupropion HCl [Wellbutrin Xl] 300 mg PO DAILY 08/21/15 04/21/17 Fluticasone/Salmeterol [Advair 1 each IH BID 08/21/15 04/21/17 250-50 Diskus] Insulin Glargine,Hum.rec.anlog 60 unit SQ HS 08/21/15 04/21/17 [Lantus Solostar] Loratadine [Claritin] 10 mg PO DAILY 08/21/15 04/21/17 Metoprolol [Lopressor] 25 mg PO BID 08/21/15 04/21/17 Pantoprazole Sodium 40 mg PO DAILY 08/21/15 04/21/17 Sertraline [Zoloft] 200 mg PO DAILY 08/21/15 04/21/17 Tamsulosin [Flomax] 0.4 mg PO HS 08/21/15 04/21/17 Tiotropium [Spiriva] 1 cap IH HS 08/21/15 04/21/17 Cholecalciferol (Vitamin D3) 2,000 unit PO DAILY 12/18/15 04/21/17 [Vitamin D3] Folic Acid 1 mg PO DAILY 12/18/15 04/21/17 Insulin LISPRO [Humalog] 15 unit SQ TIDWM 06/19/16 04/21/17 Rivaroxaban [Xarelto] 20 mg PO 1700 10/30/16 04/21/17 [place]-3/Dha/Epa/Fish Oil [Fish Oil 1 cap PO TID 12/04/16 04/21/17 1,000 mg Softgel] Oxygen 2 l NS HS 12/04/16 04/21/17 Ferrous Sulfate 325 mg PO 1700 04/16/17 04/21/17 Furosemide [Lasix] 20 mg PO DAILY PRN 04/16/17 04/21/17 Magnesium Oxide [Magnesium] 400 mg PO BID 04/16/17 04/21/17 Losartan/HCTZ [Hyzaar 50-12.5 1 tab PO DAILY 04/21/17 04/21/17 Tablet] Previous Rx's Medication Instructions Recorded Clopidogrel [Plavix] 75 mg PO DAILY #30 tablet 06/20/16 Nitroglycerin 0.4 mg SL Q5MIN PRN #25 tab.subl 06/20/16 Ascorbic Acid [Vitamin C] 500 mg PO HS #30 tablet 11/03/16 Potassium Chloride 10 meq PO DAILY #30 tab.er.prt 11/03/16 Tramadol HCl [Ultram] 50 mg PO BID PRN #20 tab 04/16/17 Allergies Allergy/AdvReac Type Severity Reaction Status Date / Time codeine Allergy Difficulty Verified 04/21/17 09:58 Breathing Homatropine AdvReac Itching Verified 04/21/17 09:58 hydrocodone AdvReac Itching Verified 04/21/17 09:58 Review of Systems: Positive for tachycardia, hypotension, weakness, All systems ED: reviewed and negative except as stated. Past Medical History - Past Medical History Medical history: Reports: atrial fibrillation, cancer, COPD, coronary artery disease, diabetes, GERD, hyperlipidemia, hypertension, renal disease, other Surgical history: Reports: angioplasty/stent, appendectomy, cancer surgery, cataract, cholecystectomy, herniorrhaphy, pacemaker/AICD, pacemaker Psychiatric history: Reports: anxiety, depression - Social History Smoking Status: Never smoker Smokeless Tobacco Status: No Alcohol use: Reports: none Drug use: Reports: none Physical Exam General he is alert cooperative appears in no acute distress. Nontoxic in appearance. Temperature is 97.3, pulse is 88 and regular, aspiration 16, BP 144/87, pulse ox is 93%, weighs 1 or nasal 0.2 kg. HEENT is normocephalic, PERRL, EOMI, TMs negative, nor is negative, airways midline, no drooling no stridor. Cardiovascular is regular rate and rhythm without rubs or JVD Lungs are clear to auscultation bilaterally with good aeration Abdomen is soft and nonsurgical good bowel sounds no masses dermatologic skin is warm and dry no rash or petechia or jaundice, he does have changes associated with age but nothing acute. Neurologic no focal deficits. Nerve motor sensory exam, good upper and lower motor strength, no clonus, no fasciculations, no ataxia, alert to person place and time, GCS is 15. - General Limitations: no limitations General appearance: alert, in no apparent distress Course Vital Signs Temperature 97.3 F L 05/10/17 10:33 Pulse Rate 88 05/10/17 10:33 Respiratory Rate 16 05/10/17 10:33 Blood Pressure 144/87 05/10/17 10:33 O2 Sat by Pulse Oximetry 92 05/10/17 10:33 Temperature 97.3 F L 05/10/17 10:33 Pulse Rate 90 05/10/17 11:24 Respiratory Rate 18 05/10/17 10:42 Blood Pressure 150/89 05/10/17 11:24 O2 Sat by Pulse Oximetry 97 05/10/17 10:42 Oxygen Delivery Oxygen Delivery Nasal Cannula Medical Decision Making - [facility] Narrative Medical decision making narrative: His current blood pressure lying down is 150 systolic with a heart rate in the 103. Workmen to get an EKG a medical workup with a static vital signs and reassess. I am assuming that the reason his has the tachycardia is due to him being off his beta camilo. I am not able to explain his low blood pressure. He did recently have a hernia surgery done here and that has done well and he is followed by difficulty he has had no issues with the surgery since and no abdominal pain. 1023 hrs.: Patient had an EKG performed which shows a sinus tachycardia, rate is 103, QRS is 95, QTC is 412, no signs of ischemia, compared this with an EKG that he had done in 2016 shows no changes acute changes and except for at that time he had ventricular pacing. He still has the pacemaker and at this time. 1130 hrs.: Orthostatics were positive he was hypertensive with a heart rate of 150 lying down and dropped 30 points blood pressure when walking and felt dizzy. He mentions to me that he is also had some episodes of chest pressure last couple days no days lasting very long. With this history of the stents that he has an elevated troponin and gets one more reason to bring him in to the facility. He is in agreement this plan. Impression is hypertension, tachycardia, orthostatic hypotension, elevated troponin with chest pain rule out ACS. He is in agreement this plan. Critical care time exclusive A separately billable procedures is 20 minutes. Paging hospitalist for admission. 1137 hrs.: Hospitalist accepted patient for admission, patient's in agreement with the plan. Patient has no chest pain at this time. Repeat EKG done at 1129 hrs. shows a paced rhythm with PVCs and A. fib the rate of 83, QRS is 99, QTC is 422, no signs of acute ischemia. Compared that with the paced rhythm from the old EKG done in 2016 and shows no changes compared with EKG today does have the PVCs. - Lab Data Result diagrams: 05/10/17 10:28 05/10/17 10:28 Lab Results 05/10/17 05/10/17 05/10/17 Range/Units 10:28 10:28 10:28 WBC 11.2 H (4.3-11.1) K/mcL RBC 4.79 (4.19-5.50) M/mcL Hgb 11.6 L (12.9-16.9) g/dL Hct 37.9 (37.5-50.1) % MCV 79.1 L (83.0-100.0) fL MCH 24.2 L (28.0-33.3) pg MCHC 30.6 L (31.6-35.5) g/dL RDW 18.7 H (11.5-14.5) % Plt Count 325 (140-400) K/mcL MPV 9.0 L (9.4-12.4) fL Immature Gran % 0.4 (0-4) % Seg Neutrophils % 83.0 % Lymphocytes % 8.4 % Monocytes % 5.6 % Eosinophils % 2.1 % Basophils % 0.5 % Neutrophils # 9.3 H (1.6-8.9) K/mcL Lymphocytes # 0.9 (0.6-4.6) K/mcL Monocytes # 0.6 (0.0-1.3) K/mcL Eosinophils # 0.2 (0.0-0.6) K/mcL Basophils # 0.1 (0.0-0.2) K/mcL Sodium 140 (136-145) mEq/L Potassium 4.1 (3.5-4.5) mEq/L Chloride 102 (98-109) mEq/L Carbon Dioxide 29 (19-29) mEq/L BUN 15 (8-26) mg/dL Creatinine 1.04 (0.72-1.25) mg/dL Est GFR ( Amer) > 60 (> 60) Est GFR (Non-Af Amer) > 60 (> 60) BUN/Creatinine Ratio 14 (6-26) Glucose 150 H (70-99) mg/dL Calculated Osmolality 294 (280-300) Calcium 10.1 (8.6-10.8) mg/dL Troponin I 0.04 H* (0-0.03) ng/mL
[2017-05-10 10:53] LABS: BUN/Creatinine Ratio 14 (6-26); Blood Urea Nitrogen 15 mg/dL (8-26); Calcium 10.1 mg/dL (8.6-10.8); Carbon Dioxide 29 mEq/L (19-29); Chloride 102 mEq/L (98-109); Glucose 150 mg/dL (70-99); Osmolality,Calculated 294 (280-300); Potassium 4.1 mEq/L (3.5-4.5); Sodium 140 mEq/L (136-145); eGFR For African Americans > 60 (> 60); eGFR For Non-African Americans > 60 (> 60)
[2017-05-10] MEDS ORDERED: Aspirin 81 MG TAB.CHEW PO STA (11:14)
[2017-05-10 11:49] LABS: Clarity,Urine Clear (Clear); Color,Urine Yellow (Yellow)
[2017-05-10 11:50] LABS: Bilirubin,Urine Negative (Negative); Blood,Urine Negative (Negative); Glucose,Urine (UA) Normal (Normal); Ketones,Urine Negative (Negative); Leukocyte Esterase,Urine Negative (Negative); Nitrite,Urine Negative (Negative); Protein,Urine Negative (Neg-Trace); Specific Gravity,Urine 1.014 (1.010-1.025); Urobilinogen,Urine Normal (Normal)
[2017-05-10] MEDS ORDERED: Naloxone 0.4 MG/ML INJ IVP PRN (13:21)
[2017-05-10] MEDS ORDERED: Acetaminophen 325 MG TABLET PO PRN (13:21)
[2017-05-10] MEDS ORDERED: Ondansetron 4 MG/2 ML VIAL IVP PRN (13:21)
[2017-05-10] MEDS ORDERED: 0.9 % Sodium Chloride 500 ML IVC ONE (13:34)
[2017-05-10] MEDS ORDERED: Nitroglycerin 0.4 MG TAB.SUBL SL PRN (13:35)
[2017-05-10] MEDS ORDERED: Ipratropium/Albuterol Neb 3 ML IH PRN (13:59)
--- NOTE | 2017-05-10 14:08 | Internal Med History&Physical ---
Date of Encounter: 05/10/17 Time of Encounter: 13:00 Assessment and Plan (1) Generalized weakness Current visit: Yes Status: Acute Patient presents with acute generalized weakness since May 05 most likely due to his hypotension and tachycardia. PCP stopped his Lopressor and Losartan/HCTZ due to his hypotension. Will reduce Lopressor to 25 mg daily instead of BID and discontinue HCTZ and order Losartan 12.5 mg daily. Will monitor patient and vital signs. Patient to be placed as falls precautions/[id number]-kdyr-vyjvbc/bed rest with bathroom privileges status due to risk for falls. (2) Tachycardia Current visit: Yes Status: Acute Patient presents with acute tachycardia on admission to ED. Patient has a history of atrial fibrillation. Continuous cardiac telemetry ordered. EV echocardiogram ordered. Cardiology consult ordered. Will resume patient's Lopressor 25 mg daily and Losartan 12.5 mg daily. Patient to be monitored closely. (3) Hypotension Current visit: Yes Status: Acute Patient presents with acute episodes of hypotension since May 05. PCP stopped his Lopressor and Losartan/HCTZ due to his hypotension. Will reduce Lopressor to 25 mg daily instead of BID and discontinue HCTZ and order Losartan 12.5 mg daily. Will monitor patient and vital signs. Patient to be placed as falls precautions/qy-owvx-ymqgax/bed rest with bathroom privileges status due to risk for falls. Qualifiers: Hypotension type: orthostatic hypotension Qualified Code(s): I95.1 - Orthostatic hypotension (4) Leukocytosis Current visit: Yes Status: Acute Patient presents with acute leukocytosis and WBC of 11.2 on initial blood draw which may be due to patient's tachycardia on ED admission. Patient had recent surgery for hernia repair in abdomen and has no abdominal tenderness or signs of infection on surgical sites. Scars healing well. Patient currently does not meet sepsis criteria as his HR is 88, RR is 16, and temperature is 97.3F. Will order lactic acid and follow-up labs to monitor WBC and consider IV antibiotics if patient shows signs of increased infection or sepsis. Qualifiers: Leukocytosis type: unspecified Qualified Code(s): D72.829 - Elevated white blood cell count, unspecified (5) Troponin level elevated Current visit: Yes Status: Acute Patient presents with initial troponin level of 0.04 upon admission to ED. Patient's previous echocardiogram and stress test were performed in 2014. Will trend troponins x2. EV echocardiogram ordered. Cardiology consult ordered and discussed with Dr. Nieves who will review patient's troponin and echocardiogram results. (6) Afib Current visit: Yes Status: Chronic Patient presents with history of chronic atrial fibrillation. Continuous cardiac telemetry ordered. Will continue patient's Plavix and Xarelto. Qualifiers: Atrial fibrillation type: paroxysmal Qualified Code(s): I48.0 - Paroxysmal atrial fibrillation (7) COPD (chronic obstructive pulmonary disease) Current visit: Yes Status: Chronic Patient presents with history of chronic COPD. Supplemental O2 and continuous SpO2 monitoring ordered. Will hold patient's inhalers and administer DuoNebs Q6 PRN. Qualifiers: COPD type: unspecified COPD Qualified Code(s): J44.9 - Chronic obstructive pulmonary disease, unspecified (8) HTN (hypertension) Current visit: Yes Status: Chronic Patient presents with history of chronic hypertension with recent acute episodes of hypotension after PCP stopped his Lopressor and Losartan/HCTZ. Will stop patient's Lopressor BID and continue Lopressor at 25 mg daily. Will stop Losartan/HCTZ and order Losartan 12.5 mg daily. Will monitor patient and vital signs. Qualifiers: Hypertension type: essential hypertension Qualified Code(s): I10 - Essential (primary) hypertension (9) HLD (hyperlipidemia) Current visit: Yes Status: Chronic Patient presents with history of chronic hyperlipidemia. Lipid panel ordered. Will continue patient's Lipitor. Qualifiers: Hyperlipidemia type: pure hypercholesterolemia Qualified Code(s): E78.00 - Pure hypercholesterolemia, unspecified; E78.0 - Pure hypercholesterolemia (10) Microcytic hypochromic anemia Current visit: Yes Status: Chronic Patient presents with history of microcytic hypochromic anemia. Will continue patient's iron therapy. Follow-up labs ordered. (11) Supplemental oxygen dependent Current visit: Yes Status: Chronic Patient presents with history of supplemental oxygen dependency. Supplemental oxygen ordered with titration if SPO2 less than 92%. Continuous SPO2 monitoring ordered. (12) DVT prophylaxis Current visit: Yes Status: Acute Patient to be placed on DVT prophylaxis due to admission protocol and bed rest status. Will continue patient's Plavix and Xarelto. Internal Medicine - H&P: HPI Chief complaint: Rapid heart rate/hypotension Admitted From: Emergency Dept Plans for Post Hospital Care: Home History of present illness: Mr. Vizcarra is a 76 year old male who presents from the ED with chief complaint of rapid heart rate and hypotension since May 05. Patient reports his PCP stopped his Lopressor and Losartan/HCTZ last week due to his hypotension. However, he reports his hypotension continued along with tachycardia. He came into the ED today due to these symptoms. He also reports generalized weakness. His last stress test and echocardiogram were in 2014 and showed an EF of 65-70%. Patient reports having recent surgery for hernia repair in abdomen. Upon examination, his scars are healing well. Patient's BP after admission in ED was increased to 144/87 and 150/89. Mr. Vizcarra has a history of atrial fibrillation, melanoma, COPD, CAD, diabetes with insulin dependency, diastolic CHF, GERD, HLD, HTN, and early stage renal disease with history of kidney stones. Patient also has history of angioplasty with placement of 8 stents and pacemaker/AICD. Patient reports he quit smoking 6 years ago and uses home O2 PRN at 2L. He denies recent illness, fever, chills, nausea, vomiting, pre-syncope, syncope, or chest pain. Mr. Vizcarra is at moderate risk for cardiac event due to his current atrial fibrillation and cardiac risk factors. He will be admitted as observation status and placed on continuous cardiac telemetry with supplemental O2 with SpO2 monitoring. Cardiac consult ordered and discussed with Dr. Nieves who will see patient and review trending troponins and echocardiogram results. Orders for orthostatic hypotension/bilateral BP and vital signs placed. Will hold patient's dose of 25 mg Lopressor BID and order Lopressor 25 mg daily, and hold patient's Losartan/HCTZ and order Losartan 12.5 mg daily. Patient to be monitored closely and is placed as falls precautions/nq-pght-rwffmy/bed rest with bathroom privileges due to generalized weakness. Time spent with patient > 40 minutes. Past Med Surg Social Fam HX - Past Medical History Source: patient Medical history: atrial fibrillation, cancer (Melanoma), COPD, coronary artery disease, diabetes, GERD, hyperlipidemia, hypertension, kidney stones, renal disease (Stage 2), other Psychiatric history: anxiety, depression - Past Surgical History Surgical History: angioplasty/stent (Stents x8), appendectomy, cancer surgery ( Melanoma), cataract (Bilateral), cholecystectomy, herniorrhaphy, pacemaker/AICD , pacemaker - Social History Smoking Status: Former smoker Packs per day: 1 PPD but reports quitting 6 years ago Smokeless Tobacco Status: No Alcohol use: none (Reports quitting 6 years ago when he quit smoking) Drug use: none Occupational status: retired Current living situation: Home, With Family Activity Level: Independent ambulation Recent Out of Country Travel Within the Last 8 Weeks: No Exposure or Possible Exposure to Illness During Travel: No - Family History Father Race: Family Member Ethnicity: Non- Living Status: Age at : 75 Cause of : Stroke Hx Family Cardiac Disorders: Yes (HTN, stroke) Hx Family Endocrine Disorder: Yes (DM) Hx Family Autoimmune Disorders: No Mother Race: Family Member Ethnicity: Non- Living Status: Age at : 92 Cause of : HD Hx Family Cardiac Disorders: Yes (HD) Hx Family Genitourinary Disorders: Yes (Kidney stones) Brother Race: Family Member Ethnicity: Non- Living Status: Age at : 76 Cause of : Leukemia Hx Family Cancer: Yes (Leukemia) Sister Race: Family Member Ethnicity: Non- Living Status: Age at : 73 Cause of : HD Hx Family Cardiac Disorders: Yes (HD) Internal Medicine - H&P: Meds Albuterol Sulfate [Albuterol Inhaler] 1 puff IH Q4H PRN 08/21/15 [History] Atorvastatin Calcium [Lipitor] 20 mg PO 1700 08/21/15 [History] Bupropion HCl [Wellbutrin Xl] 300 mg PO DAILY 08/21/15 [History] Fluticasone/Salmeterol [Advair 250-50 Diskus] 1 each IH BID 08/21/15 [History] Insulin Glargine,Hum.rec.anlog [Lantus Solostar] 60 unit SQ HS 08/21/15 [History ] Loratadine [Claritin] 10 mg PO DAILY 08/21/15 [History] Metoprolol [Lopressor] 25 mg PO BID 08/21/15 [History] Pantoprazole Sodium 40 mg PO DAILY 08/21/15 [History] Sertraline [Zoloft] 200 mg PO DAILY 08/21/15 [History] Tamsulosin [Flomax] 0.4 mg PO HS 08/21/15 [History] Tiotropium [Spiriva] 1 cap IH HS 08/21/15 [History] Cholecalciferol (Vitamin D3) [Vitamin D3] 2,000 unit PO DAILY 12/18/15 [History] Folic Acid 1 mg PO DAILY 12/18/15 [History] Insulin LISPRO [Humalog] 15 unit SQ TIDWM 06/19/16 [History] Clopidogrel [Plavix] 75 mg PO DAILY #30 tablet 06/20/16 [Rx] Nitroglycerin 0.4 mg SL Q5MIN PRN #25 tab.subl 06/20/16 [Rx] Rivaroxaban [Xarelto] 20 mg PO 1700 10/30/16 [History] Ascorbic Acid [Vitamin C] 500 mg PO HS #30 tablet 11/03/16 [Rx] Potassium Chloride 10 meq PO DAILY #30 tab.er.prt 11/03/16 [Rx] Sutton-3/Dha/Epa/Fish Oil [Fish Oil 1,000 mg Softgel] 1 cap PO TID 12/04/16 [ History] Oxygen 2 l NS HS 12/04/16 [History] Ferrous Sulfate 325 mg PO 1700 04/16/17 [History] Furosemide [Lasix] 20 mg PO DAILY PRN 04/16/17 [History] Magnesium Oxide [Magnesium] 400 mg PO BID 04/16/17 [History] Losartan/HCTZ [Hyzaar 50-12.5 Tablet] 1 tab PO DAILY 04/21/17 [History] Allergies codeine Allergy (Verified 04/21/17 09:58) Difficulty Breathing Homatropine Adverse Reaction (Verified 04/21/17 09:58) Itching hydrocodone Adverse Reaction (Verified 04/21/17 09:58) Itching All Systems PM: A 10-system review of systems was performed and is negative for pertinent findings except as documented above in the HPI. - Constitutional Constitutional: no chills, no fever(s), no night sweats - EENT Eyes: no change in vision, no discharge, no pain, no photophobia Ears: no ear discharge, no ear pain, no tinnitus Nose, mouth and throat: no dysphagia, no nasal discharge, no neck pain, no sore throat - Breasts Breasts: as per HPI - Cardiovascular Cardiovascular ROS IM: as per HPI, irregular heart rhythm, no chest pain, no diaphoresis, no dyspnea, no lightheadedness, no palpitations, no syncope - Respiratory Respiratory: as per HPI, cough (Patient reports mild cough with some yellow sputum production, but reports always having this), change in phlegm color, no dyspnea, no wheezing, no excessive phlegm production - Gastrointestinal Gastrointestinal: as per HPI, abdominal pain (Mild abdominal tenderness over hernia repair site) - Genitourinary Genitourinary ROS male: as per HPI - Musculoskeletal Musculoskeletal ROS IM: no numbness, no tingling - Integumentary Integumentary IM: no rash, no unusual bruising - Neurological Neurological ROS: as per HPI, dizziness, no confusion, no convulsions, no focal weakness, no numbness, no tingling, no tremor(s) - Psychiatric Psychiatric: as per HPI - Endocrine Endocrine IM: as per HPI - Hematologic/Lymphatic Hematologic/Lymphatic: no easy bruising - Allergic/Immunologic Allergic/Immunologic: as per HPI - Constitutional Vitals: Temp Pulse Resp BP Pulse Ox 97.9 F 70 17 148/67 94 05/10/17 13:16 05/10/17 13:17 05/10/17 13:16 05/10/17 13:17 05/10/17 13:16 General appearance: Present: cooperative, A&O X 3, pleasant, no acute distress, obese, answers questions appropriately - Head Head exam: Present: atraumatic, normocephalic - Eye Eye exam: Present: PERRL, conjuntiva pink, sclera anicteric Pupils: Present: PERRL - ENT ENT exam: Present: normal exam, normal external ear exam - Neck Neck exam general surgery: Present: supple, trachea midline. Absent: lymphadenopathy - Respiratory Respiratory exam: Present: CTAB. Absent: accessory muscle use, rales, rhonchi, wheezes - Cardiovascular Cardiovascular exam: Present: irregular rhythm - GI/Abdominal GI/Abdominal exam: Present: normal bowel sounds, soft, no peritoneal signs. Absent: distended, tenderness - Rectal Rectal exam: Present: deferred - Additional comments: exam deferred. - Extremities Exam Extremities exam: Present: warm, radial pulses palpable and symetrical. Absent : calf tenderness, cyanotic, pedal edema - Back Exam Back exam: Present: normal inspection - Neurological Exam Neurological exam: Present: CN II-XII intact, oriented X3, no focal deficits. Absent: pronater drift, facial droop, speech deficit - Psychiatric Psychiatric exam: Present: normal affect, normal mood - Skin Skin exam: Present: dry, intact Internal Med - H&P Results - Labs CBC & Chem 7: 05/10/17 10:28 05/10/17 10:28 - EKG Data EKG comments: 05/10/17 14:49 EKG dated 11/02/16 shows electronic ventricular pacemaker and abnormal rhythm ECG. EKG dated 05/10/17 shows atrial fibrillation with aberrant conduction or ventricular premature complexes and nonspecific T-wave abnormality, abnormal rhythm ECG. - Diagnostic Studies Chest x-ray Additional comments: Impressions Chest X-Ray 05/10/17 10:26 IMPRESSION: 1. Mild pulmonary vascular congestion. D/ / Jonathan Sarmiento MD / Jonathan Sarmiento MD Interpreting Provider: Jonathan Sarmiento MD
[2017-05-10] MEDS ORDERED: *HR* Dextrose 50 % in Water (Syg) 50 ML SYRINGE IVP PRN (14:57)
[2017-05-10] MEDS ORDERED: D5% in Water 1,000 ML IVC PRN (14:57)
[2017-05-10] MEDS ORDERED: Dextrose Gel 15 GM PO PRN ×2 (14:57)
[2017-05-10] MEDS: (Omega-3/Dha/Epa/Fish Oil [Fish Oil 1,000 Mg Softgel]) PO SCH ×2 (17:22→20:19)
[2017-05-10] MEDS: *HR* Rivaroxaban 10 MG TABLET PO SCH (17:28)
[2017-05-10] MEDS: Insulin LISPRO 300 UNITS/3 ML VIAL SQ SCH (17:28)
[2017-05-10] MEDS: Magnesium Oxide 400 MG TABLET PO SCH (20:26)
[2017-05-10] MEDS: Ascorbic Acid 500 MG TABLET PO SCH (20:26)
[2017-05-10] MEDS: Insulin DETEMIR 100 UNIT/ML X5UNITS SQ SCH (20:27)
[2017-05-11 05:08] LABS: Basophils % 0.4 %; Eosinophils # 0.3 K/mcL (0.0-0.6); Eosinophils % 2.8 %; Hemoglobin 10.2 g/dL (12.9-16.9); Immature Granulocytes % 0.7 % (0-4); Immature Platelets 2.1 % (1.1-6.1); Mean Corpuscular HGB Conc 30.9 g/dL (31.6-35.5); Mean Corpuscular Hemoglobin 24.5 pg (28.0-33.3); Mean Corpuscular Volume 79.1 fL (83.0-100.0); Mean Platelet Volume 9.2 fL (9.4-12.4); Monocytes # 0.7 K/mcL (0.0-1.3); Monocytes % 6.8 %; Neutrophils # 8.1 K/mcL (1.6-8.9); Platelet Count 309 K/mcL (140-400); Red Blood Count 4.17 M/mcL (4.19-5.50); Red Cell Distribution Width 18.6 % (11.5-14.5); Segmented Neutrophils % 79.3 %
[2017-05-11 05:13] LABS: INR 2.1; Prothrombin Time 23.1 Seconds (9.4-12.1)
[2017-05-11 05:16] LABS: Activated Partial Thrombo Time 42.4 Seconds (26.0-36.0)
[2017-05-11 05:25] LABS: BUN/Creatinine Ratio 16 (6-26); Blood Urea Nitrogen 16 mg/dL (8-26); Calcium 9.2 mg/dL (8.6-10.8); Carbon Dioxide 30 mEq/L (19-29); Chloride 103 mEq/L (98-109); Chol/HDL Ratio 4.3 (0-4.9); Cholesterol 95 mg/dL (< 200); Glucose 128 mg/dL (70-99); HDL Cholesterol 22 mg/dL (40-59); LDL Cholesterol,Calculated 40 mg/dL (0-99); Magnesium 1.9 mg/dL (1.6-2.6); Osmolality,Calculated 293 (280-300); Potassium 4.2 mEq/L (3.5-4.5); Sodium 140 mEq/L (136-145); Triglycerides 164 mg/dL (< 150); eGFR For African Americans > 60 (> 60); eGFR For Non-African Americans > 60 (> 60)
--- NOTE | 2017-05-11 07:52 | Cardiology Consult Note ---
Date of Encounter: 05/11/17 Time of Encounter: 07:50 Assessment and Plan (1) Hypotension Current Visit: Yes Status: Acute Per Cardiology: Current blood pressure stable. Orthostatic heart rates and blood pressures essentially benign. Echo completed shows EF 55-60%, indeterminate diastolic function, normal RV structure and function, no pulmonary hypertension, no segmental wall motion abnormalities. Apparentyl ARB/HCTZ and BB held by PCP for hypotension. Currently on ARB and beta camilo and SBP 120's-- will hold ARB for now and increase BB back to BID dosing. Qualifiers: Qualified Code(s): I95.1 - Orthostatic hypotension (2) Tachycardia Current Visit: Yes Status: Acute Per Cardiology: Current average heart rate 81 on telemetry, no significant events appreciated. On BB. Device check showed atrial rhythmns of what appears to be atrial tach 86 % of the time per [place]. Discussed with Dr. Nieves, will increase BB as BP tolerates. (3) Afib Current Visit: Yes Status: Chronic Per Cardiology: History of paroxysmal atrial fibrillation with AV node ablation and pacemaker. Last pacer check 03/2017-- showed 28,394 mode switches with most recent April 07, 2017 for 3 minutes and 27 seconds. Patient on Xarelto for anticoagulation. On beta camilo. Qualifiers: Qualified Code(s): I48.0 - Paroxysmal atrial fibrillation (4) CAD (coronary artery disease), [place] coronary artery Current Visit: No Status: Chronic Per Cardiology: Mild trop 0.04 initially and then 2 negative trops. Supsect demand ischemia in setting of tachycardia and hypotension. Per discussion with Dr. Nieves, will repeat limited echo for better EF assessment-- can consider further ischemic eval based on echo and hospital course. Has atypical CP appears at baseline with no use of NTG. Has experienced increased fatigue. Had abnormal stress test May 2016 which showed mild to moderate ischemia at the basal inferior wall and basal inferior septum. Last [facility] June 2016 with proximal LAD 30%, mid LAD 20%, proximal circumflex 99% in-stent restenosis status post PTCA with residual stenosis of 20%, ramus 50%, proximal RCA 95%. On statin, Plavix, beta camilo, ARB (will hold for now and watch BP). Does not take asa d/t on plavix and Xarelto. Qualifiers: Qualified Code(s): I25.10 - Atherosclerotic heart disease of [place] coronary artery without angina pectoris Discussion w patient/family: The assessment and plan as outlined above was discussed with the patient and/or family members who expressed understanding and agreement. All questions were answered. Thank you for involving us in the care of your patient. Please call with any questions. History of Present Illness Consult date: 05/11/17 Requesting physician: Luis Angel Hurley Consult reason: Tachycardia, Hypotension Chief complaint: Fatigue, Elevated HR, Low BP History of present illness: Mr. Vizcarra is a 76 year old male with a relevant past history of paroxysmal atrial fibrillation with AV node ablation and pacemaker, CAD, diabetes mellitus 2, hypertension, COPD, GERD, hyperlipidemia, past history of nicotine abuse. Last seen by cardiology Dr. Vergara January 2017. Seen by PCP for hospital follow- up in April 2017 status post hernia surgery, constipation, and anemia. Cardiology consult for hypotension and tachycardia. Patient seen with at bedside. Reports since hernia surgery and recent hospitalization for constipation overall decreased energy levels and fatigue. He reports dyspnea on exertion, however remains at baseline. Reports intermittent left-sided chest "dullness" that occurs at rest about once every few days and last about 15 seconds and subsides. Has not needed nitroglycerin pills. He denies any palpitations. Reports presented for iron infusion was noted to have systolic blood pressure in the 80s last week. Patient's medications of losartan/HCTZ and metoprolol were discontinued. She reports at home systolic blood pressures have been the 90s to 100s and heart rates in the low 100s. He reports these are new findings for him. He does indicate some mild dizziness with walking, however denies any syncope or falls. Denies any active bleeding or blood loss. Reports continues to take Xarelto. Does report some depression symptoms and taking medications, denies any suicidal ideations. He reports he is following a 1500 mL fluid restriction and weighs himself daily. He denies any fever, chills, nausea, vomiting, diarrhea. Denies any concerns regarding his abdominal incision sites from his hernia surgery. Past Med Surg Social Fam HX - Past Medical History Attestation: Yes The following information was validated with the patient. Source: patient, old records reviewed, obtained from family Medical history: atrial fibrillation, cancer (Melanoma), COPD, coronary artery disease, diabetes, GERD, hyperlipidemia, hypertension, kidney stones, renal disease (Stage 2), other Psychiatric history: anxiety, depression - Past Surgical History Surgical History: angioplasty/stent (Stents x8), appendectomy, cancer surgery ( Melanoma), cataract (Bilateral), cholecystectomy, herniorrhaphy, pacemaker/AICD , pacemaker - Social History Smoking Status: Former smoker Packs per day: 1 PPD but reports quitting 6 years ago Smokeless Tobacco Status: No Alcohol use: none (Reports quitting 6 years ago when he quit smoking) Drug use: none - Family History Mother Race: Family Member Ethnicity: Non- Living Status: Age at : 92 Cause of : HD Hx Family Cardiac Disorders: Yes (HD) Hx Family Genitourinary Disorders: Yes (Kidney stones) Brother Race: Family Member Ethnicity: Non- Living Status: Age at : 76 Cause of : Leukemia Hx Family Cancer: Yes (Leukemia) Sister Race: Family Member Ethnicity: Non- Living Status: Age at : 73 Cause of : HD Hx Family Cardiac Disorders: Yes (HD) Father Race: Family Member Ethnicity: Non- Living Status: Age at : 75 Cause of : Stroke Hx Family Cardiac Disorders: Yes (HTN, stroke) Hx Family Respiratory Disorders: No Hx Family Cancer: No Hx Family GI Disorders: No Hx Family Endocrine Disorder: Yes (DM) Hx Family Neuromuscular Disorders: No Hx Family Neurologic Disorders: No Hx Family HEENT Disorders: No Hx Family Autoimmune Disorders: No Medications and Allergies Albuterol Sulfate [Albuterol Inhaler] 1 puff IH Q4H PRN 08/21/15 [History] Atorvastatin Calcium [Lipitor] 20 mg PO 1700 08/21/15 [History] Bupropion HCl [Wellbutrin Xl] 300 mg PO DAILY 08/21/15 [History] Fluticasone/Salmeterol [Advair 250-50 Diskus] 1 each IH BID 08/21/15 [History] Insulin Glargine,Hum.rec.anlog [Lantus Solostar] 60 unit SQ HS 08/21/15 [History ] Loratadine [Claritin] 10 mg PO DAILY 08/21/15 [History] Metoprolol [Lopressor] 25 mg PO BID 08/21/15 [History] Pantoprazole Sodium 40 mg PO DAILY 08/21/15 [History] Sertraline [Zoloft] 200 mg PO DAILY 08/21/15 [History] Tamsulosin [Flomax] 0.4 mg PO HS 08/21/15 [History] Tiotropium [Spiriva] 1 cap IH HS 08/21/15 [History] Cholecalciferol (Vitamin D3) [Vitamin D3] 2,000 unit PO DAILY 12/18/15 [History] Folic Acid 1 mg PO DAILY 12/18/15 [History] Insulin LISPRO [Humalog] 15 unit SQ TIDWM 06/19/16 [History] Clopidogrel [Plavix] 75 mg PO DAILY #30 tablet 06/20/16 [Rx] Nitroglycerin 0.4 mg SL Q5MIN PRN #25 tab.subl 06/20/16 [Rx] Rivaroxaban [Xarelto] 20 mg PO 1700 10/30/16 [History] Ascorbic Acid [Vitamin C] 500 mg PO HS #30 tablet 11/03/16 [Rx] Potassium Chloride 10 meq PO DAILY #30 tab.er.prt 11/03/16 [Rx] [place]-3/Dha/Epa/Fish Oil [Fish Oil 1,000 mg Softgel] 1 cap PO TID 12/04/16 [ History] Oxygen 2 l NS HS 12/04/16 [History] Ferrous Sulfate 325 mg PO 1700 04/16/17 [History] Furosemide [Lasix] 20 mg PO DAILY PRN 04/16/17 [History] Magnesium Oxide [Magnesium] 400 mg PO BID 04/16/17 [History] Losartan/HCTZ [Hyzaar 50-12.5 Tablet] 1 tab PO DAILY 04/21/17 [History] Allergies codeine Allergy (Verified 04/21/17 09:58) Difficulty Breathing Homatropine Adverse Reaction (Verified 04/21/17 09:58) Itching hydrocodone Adverse Reaction (Verified 04/21/17 09:58) Itching All Systems Review: A 10-system review of systems was performed and is negative for pertinent findings except as documented above in the HPI. - Constitutional Constitutional: fatigue - Cardiovascular Cardiovascular: as per HPI, chest pain at rest, dyspnea on exertion, rapid heart rate - Neurological Neurological: dizziness Physical Examination Selected Entries 05/10/17 13:17 05/10/17 23:55 05/11/17 03:12 Temperature 98.3 F Pulse Rate 83 Pulse Rate [Orthostatic Lying] 70 Pulse Rate [Orthostatic Sitting] 77 Pulse Rate [Orthostatic Standing] 80 Respiratory Rate 16 Blood Pressure 96/62 Blood Pressure [Orthostatic Sitting] 119/68 Blood Pressure [Orthostatic Standing] 121/65 O2 Sat by Pulse Oximetry 94 Oxygen Flow Rate (LPM) 2 Oxygen Delivery Method Nasal Cannula General: Conversant, No Apparent Distress HEENT: Atraumatic, Normocephaly, Mucus Membranes Moist Neck: No JVD, Normal carotid pulses Cardiac: Normal S1 and S2, No Murmur, Other (Irregularly irregular) Lungs: Normal Breath Sounds, No Wheeze, Rales, Rhonchi Neuro: Alert and responsive, No focal deficits noted Abdomen: Soft, Non-Tender, Other (Incision sites well approximated, no erythema , no drainage) Skin: No rashes noted on visualized skin Musculoskeletal: No Chest Wall Tenderness Extremities: No Clubbing, No Cyanosis, No Edema, Normal Pulses Results 05/11/17 04:28 05/11/17 04:28 Lab Results Laboratory Tests 05/10/17 05/10/17 05/11/17 17:50 23:39 04:28 INR 2.1 Troponin I 0.02 0.03 B-Natriuretic Peptide LDL Cholesterol, Calc 05/11/17 05/11/17 04:28 04:28 INR Troponin I B-Natriuretic Peptide 144 H LDL Cholesterol, Calc 40 ITS Impressions Chest X-Ray 05/10/17 10:26 IMPRESSION: 1. Mild pulmonary vascular congestion. D/ / Jonathan Sarmiento MD / Jonathan Sarmiento MD Interpreting Provider: Jonathan Sarmiento MD Intake & Output 05/08/17 05/09/17 05/10/17 05/11/17 23:59 23:59 23:59 23:59 Output Total 600 / 600 200 / 200 Balance -600 / -600 -200 / -200 Weight 104.95 kg 105.2 kg Active Medications Acetaminophen (Tylenol) 650 mg PO Q6HR PRN PRN Reason: Mild Pain (1-3) Stop: 11/09/17 13:22 Albuterol/Ipratropium (Duoneb) 3 ml IH [id number] PRN; Protocol PRN Reason: Shortness Of Breath/Wheezing Stop: 11/09/17 14:00 Ascorbic Acid (Vitamin C) 500 mg PO HS [facility] Stop: 11/09/17 21:01 Last Admin: 05/10/17 20:26 Dose: 500 mg Atorvastatin Calcium (Lipitor) 20 mg PO 1700 [facility] Stop: 11/09/17 17:01 Last Admin: 05/10/17 17:28 Dose: 20 mg Bupropion HCl (Wellbutrin Xl) 300 mg PO DAILY [facility] Stop: 11/10/17 09:01 Clopidogrel Bisulfate (Plavix) 75 mg PO DAILY [facility] Stop: 11/10/17 09:01 Dextrose/Water (Dextrose 50% (Syg)) 25 ml IVP AD PRN PRN Reason: Hypoglycemia Stop: 11/09/17 14:58 Ferrous Sulfate (Ferrous Sulfate) 325 mg PO 1700 [facility] Stop: 11/09/17 17:01 Last Admin: 05/10/17 17:28 Dose: 325 mg Folic Acid (Folic Acid) 1 mg PO DAILY [facility] Stop: 11/10/17 09:01 Glucagon (Glucagen) 1 mg IM ONCE PRN PRN Reason: Hypoglycemia Stop: 11/09/17 14:58 Glucose (Gluctose) 15 gm PO ONCE PRN PRN Reason: Hypoglycemia Stop: 11/09/17 14:58 Glucose (Gluctose) 30 gm PO ONCE PRN PRN Reason: Hypoglycemia Stop: 11/09/17 14:58 Dextrose (Dextrose 5%) 1,000 mls @ 100 mls/hr IVC .Q10H PRN PRN Reason: HYPOGLYCEMIA Stop: 11/09/17 14:58 Insulin Detemir (Levemir) 60 unit SQ HS [facility] Stop: 11/09/17 21:01 Last Admin: 05/10/17 20:27 Dose: 60 unit Insulin Human Lispro (Humalog) 15 units SQ TIDWM [facility] Stop: 11/09/17 17:01 Last Admin: 05/10/17 17:28 Dose: 15 units Loratadine (Claritin) 10 mg PO DAILY [facility] PRN Reason: Protocol Stop: 11/10/17 09:01 Losartan Potassium (Cozaar) 12.5 mg PO DAILY [facility] PRN Reason: Protocol Stop: 11/10/17 09:01 Magnesium Oxide (Mag-Ox) 400 mg PO BID [facility] PRN Reason: Protocol Stop: 11/09/17 21:01 Last Admin: 05/10/17 20:26 Dose: 400 mg Metoprolol Tartrate (Lopressor) 25 mg PO DAILY [facility] Stop: 11/10/17 09:01 Naloxone HCl (Narcan) 0.4 mg IVP Q2MIN PRN PRN Reason: Opioid Reversal Stop: 11/09/17 13:22 Nitroglycerin (Nitroglycerin) 0.4 mg SL Q5MIN PRN PRN Reason: Chest Pain Stop: 11/09/17 13:36 ([place]-3/Dha/Epa/Fish Oil [Fish Oil 1 ,000 Mg Softgel]) 1 cap PO TID [facility] Stop: 11/09/17 15:01 Last Admin: 05/10/17 20:19 Dose: Not Given Ondansetron HCl (Zofran) 4 mg IVP Q8HR PRN PRN Reason: Nausea And Vomiting Stop: 11/09/17 13:22 Last Admin: 05/10/17 20:41 Dose: 4 mg Pantoprazole Sodium (Protonix) 40 mg IVP DAILY [facility] Stop: 11/10/17 09:01 Potassium Chloride (Potassium Chloride) 10 meq PO DAILY [facility] Stop: 11/10/17 09:01 Rivaroxaban (Xarelto) 20 mg PO 1700 [facility] Stop: 11/09/17 17:01 Last Admin: 05/10/17 17:28 Dose: 20 mg Sertraline HCl (Zoloft) 200 mg PO DAILY [facility] Stop: 11/10/17 09:01 Tamsulosin HCl (Flomax) 0.4 mg PO HS [facility] PRN Reason: Protocol Stop: 11/09/17 21:01 Last Admin: 05/10/17 20:26 Dose: 0.4 mg Vitamin D (Vitamin D) 1,000 unit PO DAILY [facility] Stop: 11/10/17 09:01 - Imaging and Cardiology Chest Xray: report reviewed Echo: report reviewed Cardiac cath: report reviewed - EKG Interpretation EKG results cardiology: personally reviewed (atrial tachycardia), no diagnostic ischemia, other (24-hour telemetry reviewed with average heart rate 81, sinus rhythm with occasional ventricular pacing, no significant events appreciated) Consult Discharge Plan - Plan Referrals: Jose Seymour DO [Primary Care Provider] -
--- NOTE | 2017-05-11 09:50 | Internal Med Progress Note ---
Date of Encounter: 05/11/17 Time of Encounter: 08:50 - Assessment and plan (1) Generalized weakness Current Visit: Yes Status: Acute Assessment and plan: Patient reports generalized weakness since blood pressure medications were stopped approximately 5 days ago. Primary care physician stopped Lopressor and losartan/HCTZ due to hypotension. He was found to be hypotensive at the [facility]. Lopressor has been restarted at 25 mg daily instead of twice a day, HCTZ was discontinued, losartan 12.5 mg daily was restarted. We will continue to monitor his patient and vital signs. He is on fall precautions, up with assist, bed rest with bathroom privileges. Continue telemetry. (2) Exertional dyspnea Current Visit: No Status: Acute Assessment and plan: Per patient history. Onset recently, within the last 2 weeks. He reports that he has been feeling fatigued, short of breath, baseline tachycardia, rate around 105, increases with exertion. States has become worse since stopping his blood pressure medications on May 05 per primary care physician order. Plan as above (3) Supplemental oxygen dependent Current Visit: Yes Status: Chronic Assessment and plan: Continuous pulse ox. Supplemental oxygen titrates to keep SPO2 greater than 92%. (4) Microcytic hypochromic anemia Current Visit: Yes Status: Chronic Assessment and plan: Continue iron therapy. Patient gets IV iron at the [facility]. Continue monitor labs. (5) Hypotension Current Visit: Yes Status: Acute Assessment and plan: Patient was found to be hypotensive at the [facility] when he went for his iron infusion. Primary care physician was notified and Lopressor and losartan/ HCTZ were discontinued. Patient states that he became increasingly fatigued and short of breath. Lopressor has been restarted at 25 mg 1 time daily. Losartan 12.5 has been started. HCTZ remains discontinued. We will continue to monitor vital signs and patient condition. Qualifiers: Hypotension type: orthostatic hypotension Qualified Code(s): I95.1 - Orthostatic hypotension (6) Troponin level elevated Current Visit: Yes Status: Acute Assessment and plan: Initial troponin in emergency department very mildly elevated at 0.04. Subsequent levels were 0.03 and 0.02. Patient denies chest pain. Cardiology consult is pending. Echocardiogram was completed yesterday. LVEF is 55-60%, normal LV chamber size and function. Mild concentric left ventricular hypertrophy with atypical septal wall motion consistent with paced rhythm. Indeterminate diastolic dysfunction. We will continue telemetry monitoring. Urology consult is pending. Appreciate their consultation recommendation. (7) HLD (hyperlipidemia) Current Visit: Yes Status: Chronic Assessment and plan: Chronic. Continue home medication. Qualifiers: Hyperlipidemia type: pure hypercholesterolemia Qualified Code(s): E78.00 - Pure hypercholesterolemia, unspecified; E78.0 - Pure hypercholesterolemia (8) Leukocytosis Current Visit: Yes Status: Acute Assessment and plan: Resolved today. 10.2. Continue to monitor labs and patient condition, as well as vital signs. Qualifiers: Leukocytosis type: unspecified Qualified Code(s): D72.829 - Elevated white blood cell count, unspecified (9) Tachycardia Current Visit: Yes Status: Acute Assessment and plan: Pulse within normal limits. Patient reports recent history of tachycardia at rest, increases with exertion. Lopressor has been decreased to 25 mg daily. Echocardiogram is completed, results as above. Cardiology consult is ordered and pending. Continue telemetry. Continue to monitor vital signs patient condition. (10) COPD (chronic obstructive pulmonary disease) Current Visit: Yes Status: Chronic Assessment and plan: Chronic. Patient is requiring supplement oxygen and continuous SPO2 monitoring. Titrate oxygen to maintain sats greater than 92%. Continue duo nebs every 6. Lungs are clear and diminished posteriorly. No wheezing, rales, stridor, rhonchi. Patient is in no respiratory distress speaks easily in full sentences. Qualifiers: COPD type: unspecified COPD Qualified Code(s): J44.9 - Chronic obstructive pulmonary disease, unspecified (11) Afib Current Visit: Yes Status: Chronic Assessment and plan: Chronic. Continue Plavix and Xarelto. Continue telemetry. Cardiology consult is pending. Lopressor has been decreased to 25 mg by mouth daily. Will wait for further recommendations. Qualifiers: Atrial fibrillation type: paroxysmal Qualified Code(s): I48.0 - Paroxysmal atrial fibrillation (12) HTN (hypertension) Current Visit: Yes Status: Chronic Assessment and plan: Chronic. Monitor blood pressures. Change medications as needed. Currently well controlled. Qualifiers: Hypertension type: essential hypertension Qualified Code(s): I10 - Essential (primary) hypertension (13) DVT prophylaxis Current Visit: Yes Status: Acute Assessment and plan: Continue Plavix and Xarelto. - Subjective Interval history: Patient was seen and assessed at about 8:50 AM. He is sitting up in bed, at bedside. He is alert and oriented, speech is clear. He reports still feeling tired, but he has not been out of bed to see if he still has dyspnea on exertion or shortness of breath. His answers most questions for him. He reports feeling fatigue, shortness of breath, tachycardia with exertion, and a constant rate of 105 even at rest. He states that he was at cancer center was found to be hypotensive. On May 05 all of his antihypertensive medications were stopped by primary care with parameters for taking the Lopressor. Patient and felt that there was no resolution to the problem, they said that primary care should have been checking on him calling him at home. Patient states he did not feel any better and he went to the emergency room yesterday for the same symptoms. His abdomen is soft, slightly distended, 3 laparoscopic puncture wounds healing, no redness and no drainage. Abdomen is nontender and bowel sounds heard. We are waiting on cardiology consult at this time. At this time, patient appears to be too weak to go home. - Constitutional Vitals: Temp Pulse Resp BP Pulse Ox 98.3 F 68 14 126/71 92 05/11/17 08:15 05/11/17 08:15 05/11/17 08:15 05/11/17 08:15 05/11/17 08:15 General appearance: Present: cooperative, A&O X 3, pleasant, no acute distress, obese, answers questions appropriately - Head Head exam: Present: normal inspection - Eye Eye exam: Present: normal appearance, conjuntiva pink. Absent: nystagmus - ENT ENT exam: Present: mucous membranes moist, normal exam - Neck Neck exam general surgery: Present: normal inspection. Absent: lymphadenopathy , tenderness - Respiratory Respiratory exam: Present: CTAB. Absent: rales, respiratory distress, rhonchi, stridor, wheezes - Cardiovascular Cardiovascular exam: Present: RRR, +S1, +S2. Absent: diastolic murmur, systolic murmur - Expanded Cardiovascular Exam Peripheral pulses: 1+: Dorsalis Pedis (L) PM, Dorsalis Pedis (R) PM - GI/Abdominal GI/Abdominal exam: Present: distended, normal bowel sounds, soft. Absent: hepatomegaly, mass, tenderness - Extremities Exam Extremities exam: Present: normal inspection, warm, radial pulses palpable and symetrical. Absent: pedal edema, tenderness - Neurological Exam Neurological exam: Present: alert, oriented X3, no focal deficits. Absent: pronater drift, facial droop, speech deficit Internal Medicine: Result - Labs CBC & Chem 7: 05/11/17 04:28 05/11/17 04:28 Labs: Short CBC 05/11/17 Range/Units 04:28 WBC 10.2 (4.3-11.1) K/mcL Hgb 10.2 L (12.9-16.9) g/dL Hct 33.0 L (37.5-50.1) % Plt Count 309 (140-400) K/mcL Neutrophils # 8.1 (1.6-8.9) K/mcL BMP 05/11/17 04:28 Sodium 140 Potassium 4.2 Chloride 103 Carbon Dioxide 30 H BUN 16 Creatinine 1.01 Glucose 128 H Calcium 9.2 Cardiac Enzymes 05/10/17 05/10/17 Range/Units 17:50 23:39 Troponin I 0.02 0.03 (0-0.03) ng/mL - ABG Interpretation ABG results: PT/INR, D-dimer PT 23.1 Seconds (9.4-12.1) H 05/11/17 04:28 Consult Discharge Plan - Plan Referrals: Jose Seymour DO [Primary Care Provider] -
[2017-05-11] MEDS ORDERED: Perflutren Lipid Microsphere 1.3 ML in 0.9 % Sodium Chloride 8.7 ML IVP ONE (10:22)
[2017-05-11] MEDS: Loratadine 10 MG TABLET PO SCH (10:40)
[2017-05-11] MEDS: Magnesium Oxide 400 MG TABLET PO SCH ×2 (10:40→20:46)
[2017-05-11] MEDS: BuPROPion XL (24 HR) 150 MG TABLET PO SCH (10:40)
[2017-05-11] MEDS: Folic Acid 1 MG TABLET PO SCH (10:40)
[2017-05-11] MEDS: Cholecalciferol (D-3) 1,000 UNIT TABLET PO SCH (10:40)
[2017-05-11] MEDS: Pantoprazole 40 MG VIAL IVP SCH (10:41)
[2017-05-11] MEDS: Insulin LISPRO 300 UNITS/3 ML VIAL SQ SCH ×3 (10:56→16:51)
[2017-05-11] MEDS: (Omega-3/Dha/Epa/Fish Oil [Fish Oil 1,000 Mg Softgel]) PO SCH ×3 (11:07→20:46)
[2017-05-11] MEDS: *HR* Rivaroxaban 10 MG TABLET PO SCH (16:51)
[2017-05-11] MEDS: Ascorbic Acid 500 MG TABLET PO SCH (20:46)
[2017-05-11] MEDS: Insulin DETEMIR 100 UNIT/ML X5UNITS SQ SCH (20:46)
[2017-05-12 03:59] LABS: Basophils % 0.3 %; Eosinophils # 0.3 K/mcL (0.0-0.6); Eosinophils % 2.8 %; Hemoglobin 9.8 g/dL (12.9-16.9); Immature Granulocytes % 0.6 % (0-4); Lymphocytes # 1.1 K/mcL (0.6-4.6); Lymphocytes % 10.2 %; Mean Corpuscular HGB Conc 30.6 g/dL (31.6-35.5); Mean Corpuscular Hemoglobin 24.8 pg (28.0-33.3); Mean Platelet Volume 9.3 fL (9.4-12.4); Monocytes # 0.7 K/mcL (0.0-1.3); Neutrophils # 8.4 K/mcL (1.6-8.9); Platelet Count 258 K/mcL (140-400); Red Blood Count 3.95 M/mcL (4.19-5.50); Red Cell Distribution Width 18.4 % (11.5-14.5); Segmented Neutrophils % 79.1 %
[2017-05-12 04:11] LABS: BUN/Creatinine Ratio 19 (6-26); Blood Urea Nitrogen 19 mg/dL (8-26); Carbon Dioxide 28 mEq/L (19-29); Chloride 102 mEq/L (98-109); Glucose 172 mg/dL (70-99); Osmolality,Calculated 290 (280-300); Potassium 4.3 mEq/L (3.5-4.5); Sodium 137 mEq/L (136-145); eGFR For African Americans > 60 (> 60); eGFR For Non-African Americans > 60 (> 60)
[2017-05-12] MEDS ORDERED: Regadenoson 0.4 MG/5 ML SYRINGE IVP ONE (05:44)
--- NOTE | 2017-05-12 07:27 | Carotid Imaging Report ---
Carotid Duplex Patient Name:Darren Vizcarra Order Number:[id number] Procedure Date:05/10/2017 Date:1940ge:76 yrs Gender:Male Lt BP:148 / 67 mmHg Rt.BP:148 / 67 mmHgHeart Rate: Location:[facility] Room #: 3B39 Water Pollution Control Technician:Rajinder Pagan Referring MD:Rolo Dyson CNP dock or pier laborer:None Reading MD:Myron Ramos MD Primary Indications:Headache with dizzness Risk Factors Yes/No Diabetes Yes Diabetes Yes Hypercholesterolemia Yes Smoker Previous Yes Hx of CAD/PTCA Yes Impressions: The bilateral carotid arteries are normal throughout. The left internal carotid artery has a 60-79% stenosis. Recommendations: Risk factor reduction. Further evaluation recommended if clinically indicated. Follow-up carotid duplex in 1 year. Findings Carotid Duplex: Left: There is nonstenotic plaque in the left bifurcation. There is irregular heterogeneous plaque. There is 60-79% stenosis in the left proximal internal carotid artery. There is smooth homogeneous plaque. There is 60-79% stenosis in the left mid internal carotid artery. There is smooth homogeneous plaque. Prior Study: No prior study available for comparison. Carotid Results Right PSV EDV Assessment Proximal CCA 94 15 Normal Mid CCA 116 22 Normal Distal CCA 78 12 Normal Bifurcation 88 16 Normal Proximal ICA 63 17 Normal Mid ICA 52 16 Normal Distal ICA 66 17 Normal ECA 169 0 Normal Vertebral Artery 45 9 Antegrade Flow Left PSV EDV Assessment Proximal CCA 73 9 Normal Mid CCA 75 15 Normal Distal CCA 74 13 Normal Bifurcation 101 18 Non Stenotic Plaque Proximal ICA 159 40 60-79% stenosis Mid ICA 158 48 60-79% stenosis Distal ICA 114 24 Post stenotic flow ECA 150 13 Normal Vertebral Artery 48 16 Antegrade Flow Ratio's Right ICA/CCA Ratio: 0.57 ICA/CCA Values: 66/116 Left ICA/CCA Ratio: 2.12 ICA/CCA Values: 159/75 Updated by Myron Ramos MD on 05/12/2017 7:21:07 AM electronically signed on 05/12/2017 7:21:34 AM with status of Final
[2017-05-12] MEDS: Magnesium Oxide 400 MG TABLET PO SCH (09:32)
[2017-05-12] MEDS: Loratadine 10 MG TABLET PO SCH (09:32)
[2017-05-12] MEDS: BuPROPion XL (24 HR) 150 MG TABLET PO SCH (09:33)
[2017-05-12] MEDS: Folic Acid 1 MG TABLET PO SCH (09:33)
[2017-05-12] MEDS: Pantoprazole 40 MG VIAL IVP SCH (09:33)
[2017-05-12] MEDS: Cholecalciferol (D-3) 1,000 UNIT TABLET PO SCH (09:33)
[2017-05-12] MEDS: Insulin LISPRO 300 UNITS/3 ML VIAL SQ SCH ×2 (10:48→12:24)
--- NOTE | 2017-05-12 11:05 | Nuclear Medicine Stress Report ---
Regadenoson Nuclear Stress Name: Darren Vizcarra Date of Study: 05/12/2017 Date: 1940 Ht: 73.0 in Medical Record#: [id number] Age: 76 Wt: 233.0 lb Gender: Male Order #: [id number] Location: [facility] Room: [facility], [place] Supervising Provider: Katelynn Quintanilla CNP Reading Physician: Randy Nieves DO, MANNY MORALES FASNC Ordering Physician: Nata Richardson CNP Primary Care Physician: Jose Seymour DO Stress Technologist: Masha Villa, CRISPIN Sas Programmer Analyst: Bruna Torres Indications: Chest Pain Impression: Pharmacologic stress ECG is non diagnostic for ischemia due to paced rhythm, nonspecific ST-T changes. Gated EF = 47%. Small sized, mild intensity, fixed inferior defect. Wall motion appears hypokinetic. Findings suggestive of a prior infarct. Perfusion imaging was negative for ischemia. History: Hypertension Diabetes Hypercholesteremia Prior PCI Stress Test Summary: Stress Test Type: Pharmacologic Regadenoson 0.4mg/5ml given IV Baseline Information: Initial Heart Rate: 74 Blood Pressure: 118/60 Stress Information: Test Terminated Due to (primary): As per protocol Maximum Blood Pressure: 108/62 Maximum Heart Rate: 87 Percent Maximum Heart Rate Achieved: 61 Double Product: 9396 METS Reached: 1 Nuclear Summary: SPECT myocardial perfusion imaging using Tc99m Sestamibi given intravenously was performed at rest and following cardiac stress testing. The resting images were obtained following initial dose of 11.9 mCi. Following stress an additional dose of 30.9 mCi was given at peak exercise or 30 seconds post regadenoson infusion. Medication Given: Time Medication Dose Units Route Findings: Stress Note * Demand ventricular pacing, nonspecific ST-T changes throughout the study. * Pharmacologic stress ECG is non diagnostic for ischemia due to paced rhythm, nonspecific ST-T changes. * Patient had no chest pain during stress. Hemodynamic responses * Normal hemodynamic responses to pharmacologic stress. Study Quality * Study quality is average. Gated EF % * Gated EF = 47%. Left Ventricle * The left ventricle is not dilated. * LVEDV = 122 mL. Inferior Perfusion Rest * The inferior segment shows a mild reduction in perfusion. Inferior Perfusion Stress * The inferior segment shows a mild reduction in perfusion. TID * No evidence of transient ischemic dilatation. TID ratio = 0.95. Lung Uptake * There is no evidence of increase lung uptake. Updated by Randy Nieves DO, CARMEN, MANNY, LACEY on 05/12/2017 10:58:46 AM electronically signed on 05/12/2017 10:59:39 AM with status of Final
[2017-05-12 11:08] VITALS: BP 112/63
[2017-05-12] MEDS: (Omega-3/Dha/Epa/Fish Oil [Fish Oil 1,000 Mg Softgel]) PO SCH (12:17)
--- NOTE | 2017-05-12 12:45 | Electrocardiograph Report ---
[place] [id number] Test Date: 2017-05-10 Pat Name: Darren Vizcarra Department: 105 Room: 3B39 Gender: M Senior Staff Consultant: : 1940 Requested By: Thanh Haro Order Number: [id number] Reading MD: Peter Salvador MD Measurements Intervals [place] Rate: 103 P: MN: 0 QRS: -5 QRSD: 95 T: 76 QT: 352 QTc: 412 Interpretive Statements SUPRAVENTRICULAR TACHYCARDIA, PROBABLY SINUS TACHYCARDIA BASELINE ARTIFACT Electronically Signed On 05-12-2017 12:43:14 EDT by Peter Salvador MD
--- NOTE | 2017-05-12 12:46 | Electrocardiograph Report ---
[place] [id number] Test Date: 2017-05-10 Pat Name: Darren Vizcarra Department: 105 Room: 3B39 Gender: M Crab Fisher: [facility] : 1940 Requested By: Thanh Haro Order Number: [id number] Reading MD: Peter Salvador MD Measurements Intervals [place] Rate: 83 P: PA: 0 QRS: -16 QRSD: 99 T: 29 QT: 382 QTc: 422 Interpretive Statements ATRIAL FIBRILLATION WITH ABERRANT CONDUCTION OR VENTRICULAR PREMATURE COMPLEXES Electronically Signed On 05-12-2017 12:44:49 EDT by Peter Salvador MD
--- NOTE | 2017-05-12 14:01 | Discharge Summary ---
Date of Encounter: 05/12/17 Time of Encounter: 09:00 - Discharge Diagnosis (1) Generalized weakness Priority: Primary Status: Acute Comments: Patient presented to the emergency department with several day history of generalized weakness since his blood pressure medications were stopped 5 days prior to arrival. His Lopressor and losartan/HCTZ was stopped due to hypotension. Patient was at the cancer center was found to be hypotensive when he was there for an iron infusion. Called to primary care is what prompted the medication changes. Since admission his Lopressor was restarted 25 mg daily, then has been changed back to twice a day. Hydrochlorothiazide losartan were both discontinued. His blood pressure is well controlled as is his heart rate. He is on fall precautions, up with assist, bed rest with bathroom privileges only. He was evaluated by physical therapy and found to not need any further therapy at this time. Patient will be discharged home with current medications. (2) Exertional dyspnea Priority: Secondary Status: Acute Comments: Patient reports history of dyspnea on exertion that has become worse with the last 2 weeks. Says he has been fatigued, short of breath, and tachycardic almost constantly with a rate around 105, with increase it to 120s with exertion. Patient states that the dyspnea and fatigue has become worse stopping his blood pressure medications on May 05 per primary care physician. Patient has been evaluated by cardiology and they have signed off. There is no further testing needed at this time. He will continue his home medications as they are right now. (3) Supplemental oxygen dependent Priority: Secondary Status: Chronic (4) Microcytic hypochromic anemia Priority: Secondary Status: Chronic Comments: Continue iron therapy. Patient gets iron infusions at the cancer center. (5) Hypotension Priority: Secondary Status: Resolved Comments: Resolved. Medications have been changed. Continue current medication regimen. Qualifiers: Hypotension type: orthostatic hypotension Qualified Code(s): I95.1 - Orthostatic hypotension (6) Troponin level elevated Priority: Secondary Status: Resolved Comments: Troponin was very mildly elevated 0.04 and fell after that. Patient denied chest pain during stay. His been seen by cardiology. Echocardiogram was done that showed an LVEF 55-60% with normal LV chamber size and function. He has mild concentric LV hypertrophy with atypical septal wall motion. Indeterminate diastolic dysfunction. Patient had second, limited Doppler done showed LVEF of 60%. Patient stress test this morning that showed gated EF of 47%. There are nonspecific ST changes due to paced rhythm and was nondiagnostic for ischemia. There is a small sized, mild intensity, fixed anterior defect. Wall motion appears hypokinetic. Findings suggestive of prior infarct. Perfusion imaging was negative for ischemia. Area of defect seemed to be present on prior stress/ LHC from May,. Cardiology has seen patient and signed. He will continue home medications and follow-up in the office in 2-3 weeks. (7) HLD (hyperlipidemia) Priority: Secondary Status: Chronic Comments: Chronic. Continue medications. Qualifiers: Hyperlipidemia type: pure hypercholesterolemia Qualified Code(s): E78.00 - Pure hypercholesterolemia, unspecified; E78.0 - Pure hypercholesterolemia (8) Leukocytosis Priority: Secondary Status: Resolved Qualifiers: Leukocytosis type: unspecified Qualified Code(s): D72.829 - Elevated white blood cell count, unspecified (9) Tachycardia Priority: Secondary Status: Resolved Comments: Patient has had echocardiogram and stress test. Patient will continue medications as they are on discharge. Lopressor 25 mg by mouth twice a day. Rate is controlled at this time and within normal limits. (10) COPD (chronic obstructive pulmonary disease) Priority: Secondary Status: Chronic Comments: No acute exacerbation. Lungs are clear diminished throughout. Continue home medications. Qualifiers: COPD type: unspecified COPD Qualified Code(s): J44.9 - Chronic obstructive pulmonary disease, unspecified (11) Afib Priority: Secondary Status: Chronic Comments: Chronic. Rate is controlled. Continue Plavix and Xarelto. Patient will follow up with cardiology in 2-3 weeks in the office. Qualifiers: Atrial fibrillation type: paroxysmal Qualified Code(s): I48.0 - Paroxysmal atrial fibrillation (12) HTN (hypertension) Priority: Secondary Status: Chronic Comments: Chronic. Continue home medications. Well-controlled inpatient setting. Qualifiers: Hypertension type: essential hypertension Qualified Code(s): I10 - Essential (primary) hypertension (13) DVT prophylaxis Priority: Secondary Status: Acute Comments: Continue Plavix and Xarelto. - Discharge Medications Prescriptions: Metoprolol [Lopressor] 25 mg PO BID #60 tablet Home Medications: Albuterol Sulfate [Albuterol Inhaler] 1 puff IH Q4H PRN 08/21/15 [History] Atorvastatin Calcium [Lipitor] 20 mg PO 1700 08/21/15 [History] Bupropion HCl [Wellbutrin Xl] 300 mg PO DAILY 08/21/15 [History] Fluticasone/Salmeterol [Advair 250-50 Diskus] 1 each IH BID 08/21/15 [History] Insulin Glargine,Hum.rec.anlog [Lantus Solostar] 60 unit SQ HS 08/21/15 [History ] Loratadine [Claritin] 10 mg PO DAILY 08/21/15 [History] Pantoprazole Sodium 40 mg PO DAILY 08/21/15 [History] Sertraline [Zoloft] 200 mg PO DAILY 08/21/15 [History] Tamsulosin [Flomax] 0.4 mg PO HS 08/21/15 [History] Tiotropium [Spiriva] 1 cap IH HS 08/21/15 [History] Cholecalciferol (Vitamin D3) [Vitamin D3] 2,000 unit PO DAILY 12/18/15 [History] Folic Acid 1 mg PO DAILY 12/18/15 [History] Insulin LISPRO [Humalog] 15 unit SQ TIDWM 06/19/16 [History] Clopidogrel [Plavix] 75 mg PO DAILY #30 tablet 06/20/16 [Rx] Nitroglycerin 0.4 mg SL Q5MIN PRN #25 tab.subl 06/20/16 [Rx] Rivaroxaban [Xarelto] 20 mg PO 1700 10/30/16 [History] Ascorbic Acid [Vitamin C] 500 mg PO HS #30 tablet 11/03/16 [Rx] Potassium Chloride 10 meq PO DAILY #30 tab.er.prt 11/03/16 [Rx] [place]-3/Dha/Epa/Fish Oil [Fish Oil 1,000 mg Softgel] 1 cap PO TID 12/04/16 [ History] Oxygen 2 l NS HS 12/04/16 [History] Ferrous Sulfate 325 mg PO 1700 04/16/17 [History] Furosemide [Lasix] 20 mg PO DAILY PRN 04/16/17 [History] Magnesium Oxide [Magnesium] 400 mg PO BID 04/16/17 [History] Metoprolol [Lopressor] 25 mg PO BID #60 tablet 05/12/17 [Rx] Allergies/Adverse Reactions: Allergies codeine Allergy (Verified 04/21/17 09:58) Difficulty Breathing Homatropine Adverse Reaction (Verified 04/21/17 09:58) Itching hydrocodone Adverse Reaction (Verified 04/21/17 09:58) Itching Procedures/tests Complete & Pending: Procedures Performed prior 72 hours Category Date Time Status NM hellen perf SPECT multi [NM] Routine Exams 05/11/17 12:24 Taken EV carotid duplex imaging BI Routine Y 05/10/17 14:08 Completed EV echocardiogram Routine Y 05/10/17 13:33 Completed EV limited echo w enhance Routine Y 05/11/17 10:12 Completed SP pharm nuclear stress Routine Y 05/12/17 07:45 Completed Date of admission: 05/10/17 11:52 Primary care physician: Jose Seymour DO Consults: 05/10/17 13:31 Consult to Occupational Therapy [CONS] Routine Comment: Evaluate, develop and implement POC Reason for Consult: Patient is having difficulty ambulating at home d/t generalized weakness. Assess needs for assistive devices Consult to Physical Therapy [CONS] Routine Comment: Evaluate, develop and implement POC Reason for Consult: Patient is having difficulty ambulating at home d/t generalized weakness. Assess needs for assistive devices 05/10/17 13:43 Consult to Cardiology [CONS] Routine Comment: Consulting Provider: Cardiology Tiffany Reason for Consult: Patient has hx of CAD and stents x8. Admitted with supraventricular tachycardia and hypotension after PCP stopped his Lopressor and Losartan/HCTZ last week. Call Completed: Yes Discharging clinician: Cece Mayo Anticipated date of discharge: 05/12/17 - Patient Status Disposition: Home, Self-Care Condition: Good Functional capacity at discharge: independent ambulation Overall status at discharge: patient is back to baseline - Discharge Instructions Follow Up With: Jose Seymour DO [Primary Care Provider] - Forms: ED Satisfaction Letter, Work/School Release Additional Instructions: Please follow up with her primary care provider in the next 7-10 days for a hospital follow-up visit. Please take your medications as directed and resume her home medications other than your hydrochlorothiazide/lisinopril. Return to the emergency department as needed for any new or worsening symptoms or for any other concerns that you may have. Follow-up with cardiology in the office in 2-3 weeks. Please follow up with vascular surgeon for carotid stenosis. Did please continue taking your aspirin and statin. - Diet and Activity Activity: increase activity as tolerated, wear oxygen at all times Diet: advance to your usual diet Hospital course: Mr. Vizcarra is a 76 year old male with past medical history of A. fib, coronary artery disease, COPD, type 2 diabetes, hypertension, GERD, hyperlipidemia and is a former smoker. Patient reports approximately 2 week history of fatigue and weakness. He reports dyspnea on exertion. He reports that he was at cancer Center or his iron infusion was noted to be hypotensive. He called his family doctor who DC'd his losartan/HCTZ and metoprolol. He reports that his blood pressures have been normal, however he has been tachycardic at home. Says he constantly has a rate of about 105 with increases into the 120s when he is exerting himself. He reports these are new findings and he says that he does have some dizziness when walking, and fatigue has increased. He presented to the emergency room for evaluation of these symptoms and was admitted. His metoprolol has been increased back to 25 mg by mouth twice a day. This is controlled his rate and his blood pressure. His ARB and HCTZ have both been held and will not be restarted prior to discharge. Per cardiology his pacer was checked and showed an atrial rhythm that appeared to be atrial tachycardia 86% of the time per [employer]. This is the point where his beta camilo was increased. He has a prior history of PE AF and has had an AV node ablation and pacemaker. He is on Xarelto for anticoagulation and beta camilo for rate control. Patient had mild elevation of troponin initially and then 2 negative troponin subsequently. Most likely demand ischemia from tachycardia and hypotension. He had a repeat limited echo that showed an EF of 60%. Patient also had a stress test that showed a small sized, mild intensity, fixed inferior defect. This was suggestive of a prior infarct. This area of defect was also present on prior stress from May,. He has been assessed by cardiology and they have signed off. He will only continue beta camilo and anticoagulation at this time. He will follow up outpatient in the office in 2- 3 weeks. He was evaluated by physical therapy and was found to have no needs. He will not need any therapy at home. Patient actually does seem to be better today. Patient will continue iron infusion therapy for his anemia. Leukocytosis on arrival, has resolved since. Patient does not need oxygen at this time he has been on room air and has maintained his sats around 92%. Continue home medications for COPD. Vital signs have remained within normal limits. Patient is transferred discharge, as is . Patient has been chest pain free, denies shortness of breath, states that he is not as fatigued and is feeling better since presentation. He says he has not had any chest pain since arrival. Patient appropriate for discharge. - Time Spent with Patient Total time spent providing and/or coordinating discharge services: Less than 30 minutes - Constitutional Vitals: Temp Pulse Resp BP Pulse Ox 98.1 F 68 16 112/63 92 05/12/17 11:31 05/12/17 11:31 05/12/17 11:05/12/17 11:05/12/17 13:00 General appearance: Present: cooperative, A&O X 3, pleasant, no acute distress, obese, answers questions appropriately - Head Head exam: Present: normal inspection - Eye Eye exam: Present: normal appearance, conjuntiva pink - ENT ENT exam: Present: mucous membranes moist, normal exam, normal external ear exam - Neck Neck exam general surgery: Present: normal inspection. Absent: lymphadenopathy , tenderness - Respiratory Respiratory exam: Present: CTAB, wheezes. Absent: chest wall tenderness, decreased breath sounds, rales, rhonchi, stridor - Cardiovascular Cardiovascular exam: Present: RRR, +S1, +S2. Absent: clicks, diastolic murmur, gallop, systolic murmur - Expanded Cardiovascular Exam Peripheral pulses: 2+: Dorsalis Pedis (L) PM, Dorsalis Pedis (R) PM - Extremities Exam Extremities exam: Present: normal capillary refill, warm, radial pulses palpable and symetrical. Absent: pedal edema, tenderness - Neurological Exam Neurological exam: Present: alert, oriented X3, no focal deficits. Absent: facial droop, speech deficit - Skin Skin exam: Present: dry, normal color, warm. Absent: rash
--- NOTE | 2017-05-12 15:10 | Cardiology Progress Note ---
Date of Encounter: 05/12/17 Time of Encounter: 15:08 Assessment and Plan (1) CAD (coronary artery disease), kiana coronary artery Current Visit: No Status: Chronic Per Cardiology: Mild trop 0.04 initially and then 2 negative trops. Supsect demand ischemia in setting of tachycardia and hypotension. Last [facility] June 2016 with proximal LAD 30%, mid LAD 20%, proximal circumflex 99 % in-stent restenosis status post PTCA with residual stenosis of 20%, ramus 50% , proximal RCA 95%. TTE completed during this stay shows EF 55-60%, indeterminate diastolic function , normal RV structure and function, no pulmonary hypertension, no segmental wall motion abnormalities. Stress test revealed small sized small intensity fixed perfusion defect with hypokenetic clement suggest previous inferior PR. Perfusion imaging negative for ischemia. Continue medical management. Denies chest pain. C/o fatigue initially. Reports improvement in symptoms. On statin, Plavix, beta camilo. Does not take asa d/t on plavix and Xarelto. Qualifiers: [place] vs. transplanted heart: kiana heart Associated angina: without angina Qualified Code(s): I25.10 - Atherosclerotic heart disease of k[place] coronary artery without angina pectoris (2) Hypotension Current Visit: Yes Status: Resolved Per Cardiology: Orthostatic heart rates and blood pressures essentially benign. Blood pressure during his stay was stable. Apparentyl ARB/HCTZ and BB held by PCP for hypotension. Currently on ARB and beta camilo and SBP 120's-- will hold ARB/ HCTZ for now and increase BB back to BID dosing to prevent tachycardia. He is currently tolerating lopressor. Qualifiers: Hypotension type: orthostatic hypotension Qualified Code(s): I95.1 - Orthostatic hypotension (3) Tachycardia Current Visit: Yes Status: Resolved Per Cardiology: Current average heart rate 79 on telemetry, no significant events appreciated. No tachycardia. Tolerating BB. Device check showed atrial rhythms of what appears to be atrial tach 86% of the time per [employer]. BB recently held and now restarted. Continue to monitor. (4) Afib Current Visit: Yes Status: Chronic Per Cardiology: History of paroxysmal atrial fibrillation with AV node ablation and pacemaker. Last pacer check 03/2017-- showed 28,394 mode switches with most recent April 07, 2017 for 3 minutes and 27 seconds. Patient on Xarelto for anticoagulation. On beta camilo. No recurrent afib seen on 24 hour telemetry check. Qualifiers: Atrial fibrillation type: paroxysmal Qualified Code(s): I48.0 - Paroxysmal atrial fibrillation Discussion w patient/family: The assessment and plan as outlined above was discussed with the patient and/or family members who expressed understanding and agreement. All questions were answered. Thank you for involving us in the care of your patient. Please call with any questions. Subjective Principal diagnosis: fatigue, hypotension Interval history: Mr. Vizcarra states he is feeling better over the last 24 hours. Denies chest pain Objective Vital Signs, Last 4 Hours Temp Pulse Resp BP Pulse Ox 05/12/17 13:00 92 05/12/17 11:31 98.1 F 68 16 112/63 96 General: Conversant, No Apparent Distress HEENT: Atraumatic, Normocephaly, Mucus Membranes Moist Neck: No JVD, Normal carotid pulses Cardiac: Reg Rate and Rhythm, Normal S1 and S2, No Murmur Lungs: Normal Breath Sounds, No Wheeze, Rales, Rhonchi Neuro: Alert and responsive, No focal deficits noted Abdomen: Soft, Non-Tender Skin: No rashes noted on visualized skin Musculoskeletal: No Chest Wall Tenderness Extremities: No Clubbing, No Cyanosis, No Edema, Normal Pulses Results 05/12/17 03:21 05/12/17 03:21 Lab Results 05/12/17 05/12/17 03:21 03:21 WBC 10.6 Hgb 9.8 L Hct 32.0 L Plt Count 258 Sodium 137 Potassium 4.3 Chloride 102 Carbon Dioxide 28 BUN 19 Creatinine 0.99 Glucose 172 H Calcium 9.0 - Imaging and Cardiology Stress Test: report reviewed Echo: report reviewed - EKG Interpretation EKG results cardiology: personally reviewed Consult Discharge Plan - Plan Instructions: Chronic Hypertension (DC) Additional Instructions: Please follow up with her primary care provider in the next 7-10 days for a hospital follow-up visit. Please take your medications as directed and resume her home medications other than your hydrochlorothiazide/lisinopril. Return to the emergency department as needed for any new or worsening symptoms or for any other concerns that you may have. Follow-up with cardiology in the office in 2-3 weeks. Please follow up with vascular surgeon for carotid stenosis. Did please continue taking your aspirin and statin. Referrals: Jose Seymour DO [Primary Care Provider] - 05/19/17 11:30 am Luis M Carcamo MD [Partnered Physician] - 05/26/17 1:00 pm Prescriptions: Metoprolol [Lopressor] 25 mg PO BID #60 tablet
== END 2017-05-12 15:18 | disposition home or self-care (01) ==
LOC: EMEROO 10:18 → 3BNU 10:18
PROVIDERS: ADMIT Nurse Practitioner Family; ATTEND Nurse Practitioner Family

== ENCOUNTER 2017-06-22 08:15 | Observation (INO) ==
[2017-06-22] MEDS ORDERED: Ipratropium/Albuterol Neb 3 ML IH ONE (08:43)
[2017-06-22] MEDS ORDERED: Furosemide 40 MG/4 ML VIAL IVP ONE (08:44)
--- NOTE | 2017-06-22 08:47 | Emergency Department Note ---
Disposition Clinical Impression: Acute exacerbation of CHF (congestive heart failure) Qualifiers: Congestive heart failure type: unspecified congestive heart failure type Qualified Code(s): I50.9 - Heart failure, unspecified Disposition: Admitted As Inpatient Condition: Fair Referrals: Jose Seymour DO [Primary Care Provider] - Time of Disposition: 09:41 SOB HPI - General Chief Complaint: ED Shortness of Breath/Dyspnea Stated Complaint: Fluid on lungs Time Seen by Provider: 06/22/17 08:25 Source: patient, family Limitations: no limitations Nursing Notes Reviewed: Yes Vital Signs Reviewed: Yes - History of Present Illness Alert and oriented nontoxic-appearing 76-year-old male presents for evaluation of worsening shortness of breath over the course of the past week. He also complains of a 5 pound weight gain since yesterday morning. The patient has a history of CHF and states that he weighs himself daily. He is prescribed Lasix 20 mg daily for this. He complains of a cough that is productive of a sputum, however is unable to describe the details of his sputum. He states his shortness of breath is made worsened with exertion as well as lying supine. He denies any fevers, chills, nausea, vomiting, abdominal pain, chest pain, hemoptysis, pain with inspiration, or any lower extremity pain. Pt Subjective Complaint: shortness of breath, cough Onset (ago): week(s) (1 week) Severity: moderate Consistency/Duration: gradually worsening Improves with: nothing Worsens with: lying flat, exertion Known history of: COPD, congestive heart failure Associated symptoms: Reports: cough, wheezing, sputum production, orthopnea. Denies: chest pain, pain with inspiration, fever, lower extremity pain, palpitations, hemoptysis, nausea/vomiting, abdominal pain Treatment prior to arrival: none Cough present: Yes - Related Data Home Medications Medication Instructions Recorded Confirmed Albuterol Sulfate [Albuterol 1 puff IH Q4H PRN 08/21/15 05/10/17 Inhaler] Atorvastatin Calcium [Lipitor] 20 mg PO 1700 08/21/15 05/10/17 Bupropion HCl [Wellbutrin Xl] 300 mg PO DAILY 08/21/15 05/10/17 Fluticasone/Salmeterol [Advair 1 each IH BID 08/21/15 05/10/17 250-50 Diskus] Insulin Glargine,Hum.rec.anlog 60 unit SQ HS 08/21/15 05/10/17 [Lantus Solostar] Loratadine [Claritin] 10 mg PO DAILY 08/21/15 05/10/17 Pantoprazole Sodium 40 mg PO DAILY 08/21/15 05/10/17 Sertraline [Zoloft] 200 mg PO DAILY 08/21/15 05/10/17 Tamsulosin [Flomax] 0.4 mg PO HS 08/21/15 05/10/17 Tiotropium [Spiriva] 1 cap IH HS 08/21/15 05/10/17 Cholecalciferol (Vitamin D3) 2,000 unit PO DAILY 12/18/15 05/10/17 [Vitamin D3] Folic Acid 1 mg PO DAILY 12/18/15 05/10/17 Insulin LISPRO [Humalog] 15 unit SQ TIDWM 06/19/16 05/10/17 Rivaroxaban [Xarelto] 20 mg PO 1700 10/30/16 05/10/17 [place]-3/Dha/Epa/Fish Oil [Fish Oil 1 cap PO TID 12/04/16 05/10/17 1,000 mg Softgel] Oxygen 2 l NS HS 12/04/16 05/10/17 Ferrous Sulfate 325 mg PO 1700 04/16/17 05/10/17 Furosemide [Lasix] 20 mg PO DAILY PRN 04/16/17 05/10/17 Magnesium Oxide [Magnesium] 400 mg PO BID 04/16/17 05/10/17 Previous Rx's Medication Instructions Recorded Clopidogrel [Plavix] 75 mg PO DAILY #30 tablet 06/20/16 Nitroglycerin 0.4 mg SL Q5MIN PRN #25 tab.subl 06/20/16 Ascorbic Acid [Vitamin C] 500 mg PO HS #30 tablet 11/03/16 Potassium Chloride 10 meq PO DAILY #30 tab.er.prt 11/03/16 Metoprolol [Lopressor] 25 mg PO BID #60 tablet 05/12/17 Allergies Allergy/AdvReac Type Severity Reaction Status Date / Time codeine Allergy Difficulty Verified 06/22/17 08:22 Breathing Homatropine AdvReac Itching Verified 06/22/17 08:22 hydrocodone AdvReac Itching Verified 06/22/17 08:22 All systems ED: reviewed and negative except as stated. Constitutional: Denies: fever, chills, weakness, weight change Eyes: Denies: eye pain, eye discharge, vision change ENT ED: Denies: ear pain, throat pain, dental pain, hearing loss, epistaxis, congestion, dysphagia Cardiovascular: Reports: as per HPI, dyspnea on exertion, orthopnea. Denies: chest pain, palpitations, edema, syncope Respiratory: Reports: as per HPI, cough, dyspnea. Denies: wheezes, hemoptysis, stridor Gastrointestinal: Denies: abdominal pain, nausea, vomiting, diarrhea, constipation, hematemesis, melena, hematochezia Genitourinary: Denies: urgency, dysuria, frequency, hematuria Musculoskeletal: Denies: back pain, neck pain, arthralgia, myalgia Integumentary: Denies: rash, abrasion, lesions Neurological: Denies: headache, weakness, numbness, paresthesias, confusion, abnormal gait, vertigo Psychiatric: Denies: anxiety, depression, suicidal thoughts, homicidal thoughts , auditory hallucinations, visual hallucinations Endocrine: Denies: fatigue Hematological/Lymphatic: Denies: easy bleeding, easy bruising Allergic/Immunologic: Denies: facial swelling, urticaria Past Medical History - Past Medical History Attestation: Yes The following information was validated with the patient. Source: patient, nursing notes reviewed Medical history: Reports: atrial fibrillation, cancer, COPD, coronary artery disease, diabetes, GERD, hyperlipidemia, hypertension, kidney stones, renal disease, other Surgical history: Reports: angioplasty/stent (Stents x8), appendectomy, cancer surgery (Melanoma), cataract (Bilateral), cholecystectomy, herniorrhaphy, pacemaker/AICD, pacemaker Psychiatric history: Reports: anxiety, depression - Social History Smoking Status: Former smoker Smokeless Tobacco Status: No Alcohol use: Reports: none Drug use: Reports: none Physical Exam - General Limitations: no limitations General appearance: alert - Head Head exam: atraumatic, normocephalic, normal inspection - Eye Eye exam: Present: normal appearance, PERRL, EOMI. Absent: nystagmus - ENT ENT exam: mucous membranes moist - Neck Neck exam: Present: normal inspection, full ROM, trachea midline - Chest Chest inspection: Present: normal inspection, symmetric chest wall rise - Respiratory Respiratory exam: Present: wheezes (Expiratory wheezes noted upon auscultation) , other (Diminished lung sounds throughout the periphery). Absent: respiratory distress, stridor, accessory muscle use, prolonged expiratory phase - Cardiovascular Cardiovascular exam: Present: regular rate, normal rhythm, normal heart sounds - Abdominal Exam Abdominal exam: Present: soft, Non-Tender, normal bowel sounds - Extremities Exam Extremities exam: Present: normal inspection, full ROM. Absent: tenderness, pedal edema - Neurological Exam Neurological exam: Present: alert, oriented X3 - Psychiatric Psychiatric exam: Present: normal affect, normal mood - Skin Skin exam: Present: warm, dry, intact, normal color Course Course Narrative: I have discussed this patient's case with Dr. Rodriguez. Dr. Rodriguez has had a [id number] evaluation with patient and agrees with admission to the hospital service for a CHF exacerbation. 0925: I spoke with Dr. Tapia of the hospitalist service who has accepted the patient for observation and further evaluation/treatment of his CHF exacerbation. Vital Signs Temperature 98.1 F 06/22/17 08:17 Pulse Rate 80 06/22/17 08:17 Respiratory Rate 22 06/22/17 08:17 Blood Pressure 142/77 06/22/17 08:17 O2 Sat by Pulse Oximetry 94 06/22/17 08:17 Temperature 98.1 F 06/22/17 08:17 Pulse Rate 62 06/22/17 09:01 Respiratory Rate 12 06/22/17 09:01 Blood Pressure 119/65 06/22/17 09:01 O2 Sat by Pulse Oximetry 96 06/22/17 09:01 Oxygen Delivery Oxygen Delivery Nasal Cannula Shortness of Breath/Dyspnea - Medical Records Medical records reviewed: Yes I reviewed the patient's medical records. - Lab Data Lab results reviewed: Yes I reviewed the patient's lab results. Lab results narrative: Laboratory Last Values WBC 10.5 K/mcL (4.3-11.1) 06/22/17 08:55 RBC 4.23 M/mcL (4.19-5.50) 06/22/17 08:55 Hgb 10.3 g/dL (12.9-16.9) L 06/22/17 08:55 Hct 35.0 % (37.5-50.1) L 06/22/17 08:55 MCV 82.7 fL (83.0-100.0) L 06/22/17 08:55 MCH 24.3 pg (28.0-33.3) L 06/22/17 08:55 MCHC 29.4 g/dL (31.6-35.5) L 06/22/17 08:55 RDW 19.7 % (11.5-14.5) H 06/22/17 08:55 Plt Count 217 K/mcL (140-400) 06/22/17 08:55 MPV 9.2 fL (9.4-12.4) L 06/22/17 08:55 Immature Gran % 0.4 % (0-4) 06/22/17 08:55 Seg Neutrophils % 85.4 % 06/22/17 08:55 Lymphocytes % 8.1 % 06/22/17 08:55 Monocytes % 4.5 % 06/22/17 08:55 Eosinophils % 1.2 % 06/22/17 08:55 Basophils % 0.4 % 06/22/17 08:55 Neutrophils # 9.0 K/mcL (1.6-8.9) H 06/22/17 08:55 Lymphocytes # 0.9 K/mcL (0.6-4.6) 06/22/17 08:55 Monocytes # 0.5 K/mcL (0.0-1.3) 06/22/17 08:55 Eosinophils # 0.1 K/mcL (0.0-0.6) 06/22/17 08:55 Basophils # 0.0 K/mcL (0.0-0.2) 06/22/17 08:55 Sodium 140 mEq/L (136-145) 06/22/17 08:55 Potassium 4.2 mEq/L (3.5-4.5) 06/22/17 08:55 Chloride 105 mEq/L (98-109) 06/22/17 08:55 Carbon Dioxide 27 mEq/L (19-29) 06/22/17 08:55 BUN 21 mg/dL (8-26) 06/22/17 08:55 Creatinine 1.25 mg/dL (0.72-1.25) 06/22/17 08:55 Est GFR ( Amer) > 60 (> 60) 06/22/17 08:55 Est GFR (Non-Af Amer) 56 (> 60) L 06/22/17 08:55 BUN/Creatinine Ratio 17 (6-26) 06/22/17 08:55 Glucose 182 mg/dL (70-99) H 06/22/17 08:55 Calculated Osmolality 298 (280-300) 06/22/17 08:55 Lactic Acid 1.6 mmol/L (0.5-2.2) 06/22/17 08:55 Calcium 9.1 mg/dL (8.6-10.8) 06/22/17 08:55 Troponin I 0.01 ng/mL (0-0.03) 06/22/17 08:55 B-Natriuretic Peptide 433 pg/mL (0-100) H 06/22/17 08:55 Urine Color Yellow (Yellow) 06/22/17 08:35 Urine Clarity Clear (Clear) 06/22/17 08:35 Urine pH 6.0 pH Units (5.0-8.0) 06/22/17 08:35 Ur Specific [place] 1.016 (1.010-1.025) 06/22/17 08:35 Urine Protein Negative mg/dL (Neg-Trace) 06/22/17 08:35 Urine Glucose (UA) Normal mg/dL (Normal) 06/22/17 08:35 Urine Ketones Negative mg/dL (Negative) 06/22/17 08:35 Urine Blood Negative (Negative) 06/22/17 08:35 Urine Nitrite Negative (Negative) 06/22/17 08:35 Urine Bilirubin Negative (Negative) 06/22/17 08:35 Urine Urobilinogen Normal mg/dL (Normal) 06/22/17 08:35 Ur Leukocyte Esterase Negative (Negative) 06/22/17 08:35 Ur Culture Indicated? NO (NO) 06/22/17 08:35 Result diagrams: 06/22/17 08:55 06/22/17 08:55 Lab Results 06/22/17 06/22/17 06/22/17 Range/Units 08:35 08:55 08:55 WBC 10.5 (4.3-11.1) K/mcL RBC 4.23 (4.19-5.50) M/mcL Hgb 10.3 L (12.9-16.9) g/dL Hct 35.0 L (37.5-50.1) % MCV 82.7 L (83.0-100.0) fL MCH 24.3 L (28.0-33.3) pg MCHC 29.4 L (31.6-35.5) g/dL RDW 19.7 H (11.5-14.5) % Plt Count 217 (140-400) K/mcL MPV 9.2 L (9.4-12.4) fL Immature Gran % 0.4 (0-4) % Seg Neutrophils % 85.4 % Lymphocytes % 8.1 % Monocytes % 4.5 % Eosinophils % 1.2 % Basophils % 0.4 % Neutrophils # 9.0 H (1.6-8.9) K/mcL Lymphocytes # 0.9 (0.6-4.6) K/mcL Monocytes # 0.5 (0.0-1.3) K/mcL Eosinophils # 0.1 (0.0-0.6) K/mcL Basophils # 0.0 (0.0-0.2) K/mcL Sodium 140 (136-145) mEq/L Potassium 4.2 (3.5-4.5) mEq/L Chloride 105 (98-109) mEq/L Carbon Dioxide 27 (19-29) mEq/L BUN 21 (8-26) mg/dL Creatinine 1.25 (0.72-1.25) mg/dL Est GFR ( Amer) > 60 (> 60) Est GFR (Non-Af Amer) 56 L (> 60) BUN/Creatinine Ratio 17 (6-26) Glucose 182 H (70-99) mg/dL Calculated Osmolality 298 (280-300) Lactic Acid (0.5-2.2) mmol/L Calcium 9.1 (8.6-10.8) mg/dL Troponin I (0-0.03) ng/mL B-Natriuretic Peptide (0-100) pg/mL Urine Color Yellow (Yellow) Urine Clarity Clear (Clear) Urine pH 6.0 (5.0-8.0) pH Units Ur Specific [place] 1.016 (1.010-1.025) Urine Protein Negative (Neg-Trace) mg/dL Urine Glucose (UA) Normal (Normal) mg/dL Urine Ketones Negative (Negative) mg/dL Urine Blood Negative (Negative) Urine Nitrite Negative (Negative) Urine Bilirubin Negative (Negative) Urine Urobilinogen Normal (Normal) mg/dL Ur Leukocyte Esterase Negative (Negative) Ur Culture Indicated? NO (NO) 06/22/17 06/22/17 06/22/17 Range/Units 08:55 08:55 08:55 WBC (4.3-11.1) K/mcL RBC (4.19-5.50) M/mcL Hgb (12.9-16.9) g/dL Hct (37.5-50.1) % MCV (83.0-100.0) fL MCH (28.0-33.3) pg MCHC (31.6-35.5) g/dL RDW (11.5-14.5) % Plt Count (140-400) K/mcL MPV (9.4-12.4) fL Immature Gran % (0-4) % Seg Neutrophils % % Lymphocytes % % Monocytes % % Eosinophils % % Basophils % % Neutrophils # (1.6-8.9) K/mcL Lymphocytes # (0.6-4.6) K/mcL Monocytes # (0.0-1.3) K/mcL Eosinophils # (0.0-0.6) K/mcL Basophils # (0.0-0.2) K/mcL Sodium (136-145) mEq/L Potassium (3.5-4.5) mEq/L Chloride (98-109) mEq/L Carbon Dioxide (19-29) mEq/L BUN (8-26) mg/dL Creatinine (0.72-1.25) mg/dL Est GFR ( Amer) (> 60) Est GFR (Non-Af Amer) (> 60) BUN/Creatinine Ratio (6-26) Glucose (70-99) mg/dL Calculated Osmolality (280-300) Lactic Acid 1.6 (0.5-2.2) mmol/L Calcium (8.6-10.8) mg/dL Troponin I 0.01 (0-0.03) ng/mL B-Natriuretic Peptide 433 H (0-100) pg/mL Urine Color (Yellow) Urine Clarity (Clear) Urine pH (5.0-8.0) pH Units Ur Specific [place] (1.010-1.025) Urine Protein (Neg-Trace) mg/dL Urine Glucose (UA) (Normal) mg/dL Urine Ketones (Negative) mg/dL Urine Blood (Negative) Urine Nitrite (Negative) Urine Bilirubin (Negative) Urine Urobilinogen (Normal) mg/dL Ur Leukocyte Esterase (Negative) Ur Culture Indicated? (NO) - Radiology Data Radiology results reviewed: Yes I reviewed the patient's radiology results. Chest X-Ray 06/22/17 08:43 IMPRESSION: Mild pulmonary edema, similar to prior exam on 05/10/2017. D/ / Lavelle Freitas MD / Lavelle Freitas MD Interpreting Provider: Lavelle Freitas MD - EKG Data EKG attestation: Yes I reviewed and interpreted this EKG. EKG results narrative: EKG reviewed by Dr. Rodriguez as well. EKG shows an electronic ventricular pacemaker at a rate of 81 bpm. Attestation Statement - Attestation Attestation: For this encounter, I have reviewed the PROCEDURE TECH or PA documentation, treatment plan, and medical decision making; and I have had face to face time with this patient. Patient complains of worsening dyspnea and unintentional water weight gain. History of CHF. Appears in no acute distress on exam. EKG and portable chest x -ray image reviewed by me
[2017-06-22 08:54] LABS: Bilirubin,Urine Negative (Negative); Blood,Urine Negative (Negative); Clarity,Urine Clear (Clear); Color,Urine Yellow (Yellow); Glucose,Urine (UA) Normal (Normal); Ketones,Urine Negative (Negative); Leukocyte Esterase,Urine Negative (Negative); Nitrite,Urine Negative (Negative); Protein,Urine Negative (Neg-Trace); Specific Gravity,Urine 1.016 (1.010-1.025); Urobilinogen,Urine Normal (Normal)
[2017-06-22 09:03] LABS: Basophils % 0.4 %; Eosinophils # 0.1 K/mcL (0.0-0.6); Eosinophils % 1.2 %; Hemoglobin 10.3 g/dL (12.9-16.9); Immature Granulocytes % 0.4 % (0-4); Lymphocytes # 0.9 K/mcL (0.6-4.6); Lymphocytes % 8.1 %; Mean Corpuscular HGB Conc 29.4 g/dL (31.6-35.5); Mean Corpuscular Hemoglobin 24.3 pg (28.0-33.3); Mean Corpuscular Volume 82.7 fL (83.0-100.0); Mean Platelet Volume 9.2 fL (9.4-12.4); Monocytes # 0.5 K/mcL (0.0-1.3); Monocytes % 4.5 %; Platelet Count 217 K/mcL (140-400); Red Blood Count 4.23 M/mcL (4.19-5.50); Red Cell Distribution Width 19.7 % (11.5-14.5); Segmented Neutrophils % 85.4 %
[2017-06-22 09:16] LABS: BUN/Creatinine Ratio 17 (6-26); Blood Urea Nitrogen 21 mg/dL (8-26); Calcium 9.1 mg/dL (8.6-10.8); Carbon Dioxide 27 mEq/L (19-29); Chloride 105 mEq/L (98-109); Glucose 182 mg/dL (70-99); Osmolality,Calculated 298 (280-300); Potassium 4.2 mEq/L (3.5-4.5); Sodium 140 mEq/L (136-145); eGFR For African Americans > 60 (> 60); eGFR For Non-African Americans 56 (> 60)
[2017-06-22] MEDS ORDERED: Naloxone 0.4 MG/ML INJ IVP PRN (10:42)
[2017-06-22] MEDS ORDERED: Dextrose Gel 15 GM PO PRN ×2 (10:45)
[2017-06-22] MEDS ORDERED: *HR* Dextrose 50 % in Water (Syg) 50 ML SYRINGE IVP PRN (10:45)
[2017-06-22] MEDS ORDERED: D5% in Water 1,000 ML IVC PRN (10:45)
[2017-06-22] MEDS ORDERED: Furosemide 20 MG TABLET PO PRN (11:08)
[2017-06-22] MEDS ORDERED: predniSONE 20 MG TABLET PO SCH (11:15)
[2017-06-22] MEDS: Ipratropium/Albuterol Neb 3 ML IH SCH ×4 (11:18→23:24)
[2017-06-22 11:29] LABS: Hemoglobin A1C 6.3 %
--- NOTE | 2017-06-22 11:50 | Internal Med History&Physical ---
<Flores,Whitney J - Last Filed: 06/22/17 11:55> Date of Encounter: 06/22/17 Time of Encounter: 11:43 Assessment and Plan (1) Acute exacerbation of chronic obstructive airways disease Current visit: No Status: Acute presented with worsening SOB and excessive sputum production. With diffuse wheezing on exam. CXR with mild pulmonary edema, stable from 05/10/2017. BNP 400. Recent TTE with EF 55%. Does not appear overloaded on exam, clincally consistent with COPD exacerbation. Afebrile, no elevated WBC. Steroid burst, Azithromycin, and duonebs. Resp PCR pending. (2) CAD (coronary artery disease), [place] coronary artery Current visit: No Status: Chronic per hx with stents. Asymptomatic, denies CP. Cont home Plavix, Xarelto, statin Qualifiers: [place] vs. transplanted heart: [place] heart Associated angina: without angina Qualified Code(s): I25.10 - Atherosclerotic heart disease of [place] coronary artery without angina pectoris (3) Iron deficiency anemia Current visit: No Status: Chronic per hx. Hgb 10, stable but has been trending down since 03/2017. No active/overt bleeding. Check occult stool as he is on anticoagulation. Monitor Hgb Qualifiers: Iron deficiency anemia type: unspecified iron deficiency Qualified Code(s) : D50.9 - Iron deficiency anemia, unspecified (4) Afib Current visit: No Status: Chronic per hx. Rate controlled. EKG shows V-paced rhythm. Cont home BB, Xarleto Qualifiers: Atrial fibrillation type: paroxysmal Qualified Code(s): I48.0 - Paroxysmal atrial fibrillation (5) DM2 (diabetes mellitus, type 2) Current visit: No Status: Chronic per hx. Control unknown. Cont home long acting, add SSI. Monitor blood sugar and titrate PRN. Hgb A1c pending Qualifiers: Diabetes mellitus complication status: with hyperglycemia Diabetes mellitus correction insulin use: with correction use Qualified Code(s): E11.65 - Type 2 diabetes mellitus with hyperglycemia; Z79.4 - [facility] (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 insulin (6) DVT prophylaxis Current visit: No Status: Acute Xarelto Internal Medicine - H&P: HPI Chief complaint: SOB Admitted From: Home History of present illness: Mr. Vizcarra is a 76 year old male with PMH CAD, COPD, diabetes and atrial fibrillation who presented to [facility] on 06/22/2017 with complaints of shortness of breath. He was placed in observation status for further work-up and treatment. Information obtained from chart review and patient report. Patient reports increased shortness of breath over the past few days, sx's worsened today so came to the hospital. No fever or chills, has cough with increased sputum production. Rest relieves SOB and activity, cough worsens. No CP. Past Med Surg Social Fam HX - Past Medical History Medical history: atrial fibrillation, cancer, COPD, coronary artery disease, diabetes, GERD, hyperlipidemia, hypertension, kidney stones, renal disease, other Psychiatric history: anxiety, depression - Past Surgical History Surgical History: angioplasty/stent (Stents x8), appendectomy, cancer surgery ( Melanoma), cataract (Bilateral), cholecystectomy, herniorrhaphy, pacemaker/AICD , pacemaker - Social History Smoking Status: Former smoker Smokeless Tobacco Status: No Alcohol use: none Drug use: none - Family History Mother Family Member Ethnicity: Non- Living Status: Hx Family Cardiac Disorders: Yes (HD) Brother Family Member Ethnicity: Non- Living Status: Hx Family Cancer: Yes (Leukemia) Sister Family Member Ethnicity: Non- Living Status: Hx Family Cardiac Disorders: Yes (HD) Father Family Member Ethnicity: Non- Living Status: Hx Family Cardiac Disorders: Yes (HTN, stroke) Hx Family Respiratory Disorders: No Hx Family Cancer: No Hx Family GI Disorders: No Hx Family Endocrine Disorder: Yes (DM) Hx Family Neuromuscular Disorders: No Hx Family Neurologic Disorders: No Hx Family HEENT Disorders: No Hx Family Autoimmune Disorders: No Internal Medicine - H&P: Meds Albuterol Sulfate [Albuterol Inhaler] 1 puff IH Q4H PRN 08/21/15 [History] Atorvastatin Calcium [Lipitor] 20 mg PO 1700 08/21/15 [History] Bupropion HCl [Wellbutrin Xl] 300 mg PO DAILY 08/21/15 [History] Fluticasone/Salmeterol [Advair 250-50 Diskus] 1 each IH BID 08/21/15 [History] Insulin Glargine,Hum.rec.anlog [Lantus Solostar] 60 unit SQ HS 08/21/15 [History ] Loratadine [Claritin] 10 mg PO DAILY 08/21/15 [History] Pantoprazole Sodium 40 mg PO DAILY 08/21/15 [History] Sertraline [Zoloft] 200 mg PO DAILY 08/21/15 [History] Tamsulosin [Flomax] 0.4 mg PO HS 08/21/15 [History] Tiotropium [Spiriva] 1 cap IH HS 08/21/15 [History] Cholecalciferol (Vitamin D3) [Vitamin D3] 2,000 unit PO DAILY 12/18/15 [History] Folic Acid 1 mg PO DAILY 12/18/15 [History] Insulin LISPRO [Humalog] 15 unit SQ TIDWM 06/19/16 [History] Clopidogrel [Plavix] 75 mg PO DAILY #30 tablet 06/20/16 [Rx] Rivaroxaban [Xarelto] 20 mg PO 1700 10/30/16 [History] Ascorbic Acid [Vitamin C] 500 mg PO HS #30 tablet 11/03/16 [Rx] Potassium Chloride 10 meq PO DAILY #30 tab.er.prt 11/03/16 [Rx] [place]-3/Dha/Epa/Fish Oil [Fish Oil 1,000 mg Softgel] 1 cap PO TID 12/04/16 [ History] Oxygen 2 l NS HS 12/04/16 [History] Ferrous Sulfate 325 mg PO 1700 04/16/17 [History] Furosemide [Lasix] 20 mg PO DAILY PRN 04/16/17 [History] Magnesium Oxide [Magnesium] 400 mg PO BID 04/16/17 [History] Metoprolol [Lopressor] 25 mg PO BID #60 tablet 05/12/17 [Rx] Docusate Sodium [Dok] 100 mg PO DAILY PRN 06/22/17 [History] Allergies codeine Allergy (Verified 06/22/17 09:54) Difficulty Breathing Homatropine [From Homatropaire] Adverse Reaction (Verified 06/22/17 11:53) Insomnia hydrocodone Adverse Reaction (Verified 06/22/17 11:53) Insomnia All Systems PM: A 10-system review of systems was performed and is negative for pertinent findings except as documented above in the HPI. - Constitutional Constitutional: no chills, no fever(s), no night sweats - EENT Eyes: no change in vision, no discharge, no pain, no photophobia Ears: no ear discharge, no ear pain, no tinnitus Nose, mouth and throat: no dysphagia, no nasal discharge, no neck pain, no sore throat - Cardiovascular Cardiovascular ROS IM: no chest pain, no diaphoresis, no dyspnea, no lightheadedness, no palpitations, no syncope - Respiratory Respiratory: cough, dyspnea, wheezing, excessive phlegm production - Gastrointestinal Gastrointestinal: no abdominal pain, no diarrhea, no hematemesis, no hematochezia, no melena, no nausea, no vomiting - Musculoskeletal Musculoskeletal ROS IM: no numbness, no tingling - Integumentary Integumentary IM: no rash, no unusual bruising - Neurological Neurological ROS: no confusion, no convulsions, no focal weakness, no numbness, no tingling, no tremor(s) - Hematologic/Lymphatic Hematologic/Lymphatic: no easy bruising - Constitutional Vitals: Temp Pulse Resp BP Pulse Ox 98.1 F 68 20 115/63 96 06/22/17 08:17 06/22/17 10:39 06/22/17 10:46 06/22/17 10:46 06/22/17 10:39 General appearance: Present: A&O X 3, no acute distress - Head Head exam: Present: atraumatic, normocephalic - Eye Eye exam: Present: PERRL, conjuntiva pink, sclera anicteric Pupils: Present: PERRL - Neck Neck exam general surgery: Present: supple, trachea midline. Absent: lymphadenopathy - Respiratory Respiratory exam: Present: wheezes. Absent: accessory muscle use, rales, rhonchi - Cardiovascular Cardiovascular exam: Present: RRR, +S1, +S2. Absent: diastolic murmur, gallop, rubs, systolic murmur - GI/Abdominal GI/Abdominal exam: Present: normal bowel sounds, soft, no peritoneal signs. Absent: distended, tenderness - Extremities Exam Extremities exam: Present: warm, radial pulses palpable and symmetrical. Absent : calf tenderness, cyanotic, pedal edema - Neurological Exam Neurological exam: Present: CN II-XII intact, oriented X3, no focal deficits. Absent: pronater drift, facial droop, speech deficit - Skin Skin exam: Present: dry, intact Internal Med - H&P Results - Labs CBC & Chem 7: 06/22/17 08:55 06/22/17 08:55 <Kody Tapia - Last Filed: 06/22/17 19:26> Date of Encounter: 06/22/17 Internal Medicine - H&P: HPI History of present illness: Mr. Vizcarra is a 76 year old male All Systems PM: A 10-system review of systems was performed and is negative for pertinent findings except as documented above in the HPI. - Constitutional Vitals: Temp Pulse Resp BP Pulse Ox 97.8 F 100 20 128/74 95 06/22/17 15:39 06/22/17 15:39 06/22/17 15:40 06/22/17 15:39 06/22/17 15:40 Internal Med - H&P Results - Labs CBC & Chem 7: 06/22/17 08:55 06/22/17 08:55 - Attending Attestation I have personally performed a face to face evaluation on this patient. I have reviewed and agree with the care plan. History and Exam by me shows: Mr. Vizcarra has been admitted for difficulty breathing and presumed COPD. He is starting to feel somewhat better now. Exam Alert. Comfortable Heart reg Lungs with some end exp wheeze Agree with plan as outlined above
[2017-06-22] MEDS: Insulin LISPRO 300 UNITS/3 ML VIAL SQ SCH ×3 (12:56→23:28)
[2017-06-22] MEDS: Azithromycin 500 MG in D5% in Water 250 ML IVPB SCH (13:45)
[2017-06-22] MEDS: *HR* Rivaroxaban 10 MG TABLET PO SCH (16:52)
[2017-06-22] MEDS: Budesonide/Formoterol 80/4.5 MDI IH SCH (20:38)
[2017-06-22] MEDS ORDERED: Tiotropium 18 MCG inhalation IH SCH (21:00)
[2017-06-22] MEDS: GuaiFENesin Liq 200 MG/10 ML UDC PO SCH (23:23)
[2017-06-22] MEDS: Insulin DETEMIR 100 UNIT/ML X5UNITS SQ SCH (23:26)
[2017-06-23] MEDS: GuaiFENesin Liq 200 MG/10 ML UDC PO SCH ×3 (01:40→22:43)
[2017-06-23] MEDS: Ipratropium/Albuterol Neb 3 ML IH SCH ×6 (04:18→23:16)
[2017-06-23 06:56] LABS: Basophils % 0.2 %; Eosinophils % 0.1 %; Hemoglobin 9.6 g/dL (12.9-16.9)
[2017-06-23 06:58] LABS: Hematocrit 33.3 % (37.5-50.1); Immature Granulocytes % 1.1 % (0-4); Lymphocytes # 0.7 K/mcL (0.6-4.6); Lymphocytes % 8.3 %; Mean Corpuscular HGB Conc 28.8 g/dL (31.6-35.5); Mean Corpuscular Hemoglobin 23.8 pg (28.0-33.3); Mean Corpuscular Volume 82.6 fL (83.0-100.0); Mean Platelet Volume 10.1 fL (9.4-12.4); Monocytes # 0.5 K/mcL (0.0-1.3); Monocytes % 5.1 %; Neutrophils # 7.5 K/mcL (1.6-8.9); Platelet Count 222 K/mcL (140-400); Red Blood Count 4.03 M/mcL (4.19-5.50); Red Cell Distribution Width 19.4 % (11.5-14.5); Segmented Neutrophils % 85.2 %
[2017-06-23 07:14] LABS: Alanine Aminotransferase 11 Units/L (0-55); Albumin 3.6 g/dL (3.5-5.0); Albumin/Globulin Ratio 1.1 (1.1-2.2); Alkaline Phosphatase 56 Units/L (38-126); Aspartate Amino Transferase 9 Units/L (5-34); BUN/Creatinine Ratio 19 (6-26); Bilirubin,Total 0.7 mg/dL (0.2-1.2); Blood Urea Nitrogen 22 mg/dL (8-26); Calcium 9.2 mg/dL (8.6-10.8); Carbon Dioxide 29 mEq/L (19-29); Chloride 103 mEq/L (98-109); Globulin 3.3 g/dL (2.4-3.5); Glucose 235 mg/dL (70-99); Osmolality,Calculated 301 (280-300); Potassium 4.2 mEq/L (3.5-4.5); Sodium 140 mEq/L (136-145); Total Protein 6.9 g/dL (6.0-8.3); eGFR For African Americans > 60 (> 60); eGFR For Non-African Americans > 60 (> 60)
[2017-06-23] MEDS: Budesonide/Formoterol 80/4.5 MDI IH SCH (07:52)
[2017-06-23 07:56] LABS: Anisocytosis 1+ (Not Present); Hypochromasia Present (Not Present); Poikilocytosis 1+ (Not Present); Polychromasia 1+ (Not Present); Tear Drop Cells 1+ (Not Present)
[2017-06-23 08:11] LABS: Hemoglobin A1C 6.3 %
--- NOTE | 2017-06-23 08:48 | Internal Med Progress Note ---
Date of Encounter: 06/23/17 Time of Encounter: 08:45 - Assessment and plan (1) Acute exacerbation of chronic obstructive airways disease Current Visit: Yes Status: Acute (2) Acute diastolic CHF (congestive heart failure), NYHA class 3 Current Visit: Yes Status: Acute (3) Afib Current Visit: Yes Status: Chronic Qualifiers: Atrial fibrillation type: paroxysmal Qualified Code(s): I48.0 - Paroxysmal atrial fibrillation (4) DM2 (diabetes mellitus, type 2) Current Visit: Yes Status: Chronic Qualifiers: Diabetes mellitus complication status: with hyperglycemia Diabetes mellitus skilled nursing insulin use: with terminal operations supervisor use Qualified Code(s): E11.65 - Type 2 diabetes mellitus with hyperglycemia; Z79.4 - emt intermediate (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 insulin - Subjective Interval history: Mr. Vizcarra is a 76 year old male with PMH CAD, COPD, diabetes and atrial fibrillation who presented to [facility] on 06/22/2017 with complaints of shortness of breath. Problem list: #1 acute exacerbation of COPD: Patient is on IV Solu-Medrol nebulizers and Mucinex. He has also been restarted on IV Zithromax and Rocephin by admitting physician. #2 acute diastolic congestive heart failure: On chest x-ray pulmonary edema. Fluid balance is negative as he is on Lasix which will be continued. His known EF is 55%. #3 chronic atrial fibrillation: Patient is also on Xarelto. #4 diabetes Accu-Chek 4 times a day with sliding scale coverage daily monitoring - Constitutional Vitals: Temp Pulse Resp BP Pulse Ox 97.7 F 64 24 142/94 92 06/23/17 07:24 06/23/17 07:24 06/23/17 07:52 06/23/17 07:24 06/23/17 07:52 General appearance: Present: A&O X 3, no acute distress - Head Head exam: Present: atraumatic, normocephalic - Eye Eye exam: Present: PERRL, conjuntiva pink, sclera anicteric Pupils: Present: PERRL - Neck Neck exam general surgery: Present: supple, trachea midline. Absent: lymphadenopathy - Respiratory Respiratory exam: Present: decreased breath sounds, wheezes. Absent: accessory muscle use, rales, rhonchi - Cardiovascular Cardiovascular exam: Present: RRR, +S1, +S2. Absent: diastolic murmur, gallop, rubs, systolic murmur - GI/Abdominal GI/Abdominal exam: Present: normal bowel sounds, soft, no peritoneal signs. Absent: distended, tenderness - Extremities Exam Extremities exam: Present: warm, radial pulses palpable and symmetrical. Absent : calf tenderness, cyanotic, pedal edema - Neurological Exam Neurological exam: Present: CN II-XII intact, oriented X3, no focal deficits. Absent: pronater drift, facial droop, speech deficit - Skin Skin exam: Present: dry, intact Internal Medicine: Result - Labs CBC & Chem 7: 06/23/17 04:53 06/23/17 04:53 Labs: Short CBC 06/23/17 Range/Units 04:53 WBC 8.8 (4.3-11.1) K/mcL Hgb 9.6 L (12.9-16.9) g/dL Hct 33.3 L (37.5-50.1) % Plt Count 222 (140-400) K/mcL Neutrophils # 7.5 (1.6-8.9) K/mcL BMP 06/23/17 04:53 Sodium 140 Potassium 4.2 Chloride 103 Carbon Dioxide 29 BUN 22 Creatinine 1.13 Glucose 235 H Calcium 9.2 Liver Function 06/23/17 Range/Units 04:53 Total Bilirubin 0.7 (0.2-1.2) mg/dL AST 9 (5-34) Units/L ALT 11 (0-55) Units/L Alkaline Phosphatase 56 (38-126) Units/L Albumin 3.6 (3.5-5.0) g/dL Consult Discharge Plan - Plan Referrals: Jose Seymour DO [Primary Care Provider] -
[2017-06-23] MEDS: Folic Acid 1 MG TABLET PO SCH (08:57)
[2017-06-23] MEDS: Insulin LISPRO 300 UNITS/3 ML VIAL SQ SCH ×4 (08:57→20:42)
[2017-06-23] MEDS: BuPROPion XL (24 HR) 150 MG TABLET PO SCH (08:57)
[2017-06-23] MEDS: Loratadine 10 MG TABLET PO SCH (08:57)
--- NOTE | 2017-06-23 14:08 | Electrocardiograph Report ---
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
[2017-06-23] MEDS: Azithromycin 500 MG in D5% in Water 250 ML IVPB SCH (17:28)
[2017-06-23] MEDS: *HR* Rivaroxaban 10 MG TABLET PO SCH (17:32)
[2017-06-23] MEDS: methylPREDNISolone 125 MG/2 ML VIAL IVP SCH ×2 (17:32→23:55)
[2017-06-23] MEDS: Insulin DETEMIR 100 UNIT/ML X5UNITS SQ SCH (22:03)
[2017-06-24] MEDS: Ipratropium/Albuterol Neb 3 ML IH SCH ×4 (03:09→16:26)
[2017-06-24] MEDS: methylPREDNISolone 125 MG/2 ML VIAL IVP SCH (08:00)
[2017-06-24] MEDS: Insulin LISPRO 300 UNITS/3 ML VIAL SQ SCH ×2 (08:00→12:17)
[2017-06-24] MEDS: Loratadine 10 MG TABLET PO SCH (08:01)
[2017-06-24] MEDS: BuPROPion XL (24 HR) 150 MG TABLET PO SCH (08:02)
[2017-06-24] MEDS: Folic Acid 1 MG TABLET PO SCH (08:03)
[2017-06-24 11:18] VITALS: BP 137/74
--- NOTE | 2017-06-24 15:12 | Discharge Summary ---
Date of Encounter: 06/24/17 Time of Encounter: 15:08 - Discharge Diagnosis (1) Acute exacerbation of chronic obstructive airways disease Priority: Primary Status: Acute (2) Acute diastolic CHF (congestive heart failure), NYHA class 3 Priority: Secondary Status: Acute (3) Afib Priority: Secondary Status: Chronic Qualifiers: Atrial fibrillation type: paroxysmal Qualified Code(s): I48.0 - Paroxysmal atrial fibrillation (4) DM2 (diabetes mellitus, type 2) Priority: Secondary Status: Chronic Qualifiers: Diabetes mellitus complication status: with hyperglycemia Diabetes mellitus fdc insulin use: with superintendent marine oil terminal use Qualified Code(s): E11.65 - Type 2 diabetes mellitus with hyperglycemia; Z79.4 - parts counterman (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 insulin - Discharge Medications Prescriptions: Ipratropium/Albuterol Neb [Duoneb] 3 ml IH Q6HR #120 inh Cefuroxime PO [Ceftin] 500 mg PO Q12HR #20 tablet Azithromycin [Zithromax] 500 mg PO DAILY #5 tablet predniSONE [PredniSONE] 10 mg PO DAILY #34 tablet Home Medications: Albuterol Sulfate [Albuterol Inhaler] 1 puff IH Q4H PRN 08/21/15 [History] Atorvastatin Calcium [Lipitor] 20 mg PO 1700 08/21/15 [History] Bupropion HCl [Wellbutrin Xl] 300 mg PO DAILY 08/21/15 [History] Fluticasone/Salmeterol [Advair 250-50 Diskus] 1 each IH BID 08/21/15 [History] Insulin Glargine,Hum.rec.anlog [Lantus Solostar] 60 unit SQ HS 08/21/15 [History ] Loratadine [Claritin] 10 mg PO DAILY 08/21/15 [History] Pantoprazole Sodium 40 mg PO DAILY 08/21/15 [History] Sertraline [Zoloft] 200 mg PO DAILY 08/21/15 [History] Tamsulosin [Flomax] 0.4 mg PO HS 08/21/15 [History] Tiotropium [Spiriva] 1 cap IH HS 08/21/15 [History] Cholecalciferol (Vitamin D3) [Vitamin D3] 2,000 unit PO DAILY 12/18/15 [History] Folic Acid 1 mg PO DAILY 12/18/15 [History] Insulin LISPRO [Humalog] 15 unit SQ TIDWM 06/19/16 [History] Clopidogrel [Plavix] 75 mg PO DAILY #30 tablet 06/20/16 [Rx] Rivaroxaban [Xarelto] 20 mg PO 1700 10/30/16 [History] Ascorbic Acid [Vitamin C] 500 mg PO HS #30 tablet 11/03/16 [Rx] Potassium Chloride 10 meq PO DAILY #30 tab.er.prt 11/03/16 [Rx] [place]-3/Dha/Epa/Fish Oil [Fish Oil 1,000 mg Softgel] 1 cap PO TID 12/04/16 [ History] Oxygen 2 l NS HS 12/04/16 [History] Ferrous Sulfate 325 mg PO 1700 04/16/17 [History] Furosemide [Lasix] 20 mg PO DAILY PRN 04/16/17 [History] Magnesium Oxide [Magnesium] 400 mg PO BID 04/16/17 [History] Metoprolol [Lopressor] 25 mg PO BID #60 tablet 05/12/17 [Rx] Docusate Sodium [Dok] 100 mg PO DAILY PRN 06/22/17 [History] Azithromycin [Zithromax] 500 mg PO DAILY #5 tablet 06/24/17 [Rx] Cefuroxime PO [Ceftin] 500 mg PO Q12HR #20 tablet 06/24/17 [Rx] Ipratropium/Albuterol Neb [Duoneb] 3 ml IH Q6HR #120 inh 06/24/17 [Rx] predniSONE [PredniSONE] 10 mg PO DAILY #34 tablet 06/24/17 [Rx] Allergies/Adverse Reactions: 3 Allergy/AdvReac Type Severity Reaction Status Date / Time codeine Allergy Difficulty Verified 06/22/17 09:54 Breathing Homatropine AdvReac Insomnia Verified 06/22/17 11:53 [From Homatropaire] hydrocodone AdvReac Insomnia Verified 06/22/17 11:53 Date of admission: 06/22/17 10:13 Primary care physician: Jose Seymour DO Consults: 06/22/17 12:16 Consult to Independent Jeweler [CONS] Routine Reason for SW Consult: help with power of attroney papers Discharging clinician: Andi Sung Anticipated date of discharge: 06/24/17 - Patient Status Disposition: Home, Self-Care Condition: Fair Functional capacity at discharge: independent ambulation - Discharge Instructions Follow Up With: Jose Seymour DO [Primary Care Provider] - 07/02/17 11:30 am Forms: ED Satisfaction Letter - Diet and Activity Activity: resume usual activities as tolerated Diet: advance to your usual diet, diabetic diet, low fat, low cholesterol, low salt diet Hospital course: Mr. Vizcarra is a 76 year old male - Time Spent with Patient Total time spent providing and/or coordinating discharge services: - Constitutional Vitals: Temp Pulse Resp BP Pulse Ox 97.9 F 72 18 137/74 94 06/24/17 11:12 06/24/17 11:12 06/24/17 11:12 06/24/17 11:12 06/24/17 11:12 General appearance: Present: A&O X 3, no acute distress - Head Head exam: Present: atraumatic, normocephalic - Eye Eye exam: Present: PERRL, conjuntiva pink, sclera anicteric Pupils: Present: PERRL - Neck Neck exam general surgery: Present: supple, trachea midline. Absent: lymphadenopathy - Respiratory Respiratory exam: Present: CTAB. Absent: accessory muscle use, rales, rhonchi, wheezes - Cardiovascular Cardiovascular exam: Present: RRR, +S1, +S2. Absent: diastolic murmur, gallop, rubs, systolic murmur - GI/Abdominal GI/Abdominal exam: Present: normal bowel sounds, soft, no peritoneal signs. Absent: distended, tenderness - Extremities Exam Extremities exam: Present: warm, radial pulses palpable and symmetrical. Absent : calf tenderness, cyanotic, pedal edema - Neurological Exam Neurological exam: Present: CN II-XII intact, oriented X3, no focal deficits. Absent: pronater drift, facial droop, speech deficit - Skin Skin exam: Present: dry, intact
[2017-06-24] MEDS ORDERED: Insulin DETEMIR 100 UNIT/ML X5UNITS SQ SCH (21:00)
== END 2017-06-24 16:39 | disposition home or self-care (01) ==
LOC: 2NENU 08:15 → EMEROO 08:15 → 2NENU 11:15
PROVIDERS: ADMIT Internal Medicine; ATTEND Internal Medicine

== ENCOUNTER 2017-10-04 20:56 | Observation (INO) ==
[2017-10-04] MEDS ORDERED: Nitroglycerin 1 INCH/GM PACKET TP ONE (21:27)
[2017-10-04] MEDS ORDERED: Ondansetron 4 MG/2 ML VIAL IVP ONE (21:27)
[2017-10-04] MEDS ORDERED: Aspirin 81 MG TAB.CHEW PO ONE (21:27)
--- NOTE | 2017-10-04 21:32 | Emergency Department Note ---
Disposition Clinical Impression: Chest pain of uncertain etiology Disposition: Home, Self-Care Condition: Good Time of Disposition: 22:24 Chest Pain HPI - General Chief Complaint: ED Chest Pain Stated Complaint: Chest Pain Time Seen by Provider: 10/04/17 21:27 Source: patient, family Limitations: no limitations Vital Signs Reviewed: Yes Nursing Notes Reviewed: Yes - History of Present Illness HPI Narrative: Mr. Vizcarra, 77-year-old male, presents from home for evaluation of chest pain. Onset 17:00, intermittent, lasting appx 1min before spontaneously resolving. Described as a dull squeeze below his left breast. Non-radiatiating. No associated nausea, unusual dyspnea, diaphoresis, arm or jaw or back pain. Patient has a history of 8 stents. Last was placed in 2015. He never had chest pain prior to the stent placements. PMH: CAD s/p 8stent, HTN, HLD, DM insulin dependent, COPD on 2L NC PRN. Assistive Technology Trainer: Dr. Finn. Severity scale (1-10): 0 - Related Data Home Medications Medication Instructions Recorded Confirmed Albuterol Sulfate [Albuterol 1 puff IH Q4H PRN 08/21/15 10/04/17 Inhaler] Atorvastatin Calcium [Lipitor] 20 mg PO 1700 08/21/15 10/04/17 Bupropion HCl [Wellbutrin Xl] 300 mg PO DAILY 08/21/15 10/04/17 Fluticasone/Salmeterol [Advair 1 each IH BID 08/21/15 10/04/17 250-50 Diskus] Insulin Glargine,Hum.rec.anlog 60 unit SQ HS 08/21/15 10/04/17 [Lantus Solostar] Loratadine [Claritin] 10 mg PO DAILY 08/21/15 10/04/17 Pantoprazole Sodium 40 mg PO DAILY 08/21/15 10/04/17 Sertraline [Zoloft] 200 mg PO DAILY 08/21/15 10/04/17 Tamsulosin [Flomax] 0.4 mg PO HS 08/21/15 10/04/17 Tiotropium [Spiriva] 1 cap IH HS 08/21/15 10/04/17 Cholecalciferol (Vitamin D3) 2,000 unit PO DAILY 12/18/15 10/04/17 [Vitamin D3] Folic Acid 1 mg PO DAILY 12/18/15 10/04/17 Insulin LISPRO [Humalog] 15 unit SQ TIDWM 06/19/16 10/04/17 Rivaroxaban [Xarelto] 20 mg PO 1700 10/30/16 10/04/17 [place]-3/Dha/Epa/Fish Oil [Fish Oil 1 cap PO TID 12/04/16 10/04/17 1,000 mg Softgel] Oxygen 2 l NS HS 12/04/16 10/04/17 Furosemide [Lasix] 20 mg PO DAILY PRN 04/16/17 10/04/17 Magnesium Oxide [Magnesium] 400 mg PO BID 04/16/17 10/04/17 Docusate Sodium [Dok] 100 mg PO DAILY PRN 06/22/17 10/04/17 Ferrous Gluconate 324 mg PO BID 08/13/17 10/04/17 Previous Rx's Medication Instructions Recorded Clopidogrel [Plavix] 75 mg PO DAILY #30 tablet 06/20/16 Potassium Chloride 10 meq PO DAILY #30 tab.er.prt 11/03/16 Metoprolol [Lopressor] 25 mg PO BID #60 tablet 05/12/17 Ascorbic Acid [Vitamin C] 500 mg PO HS #30 tablet 07/02/17 Hydrocortisone 2.5% CREAM [Cortaid] 1 appl TP BID #1 tube 09/29/17 Allergies Allergy/AdvReac Type Severity Reaction Status Date / Time codeine Allergy Difficulty Verified 10/04/17 21:39 Breathing Homatropine AdvReac Insomnia Verified 10/04/17 21:39 [From Homatropaire] hydrocodone AdvReac Insomnia Verified 10/04/17 21:39 All systems ED: reviewed and negative except as stated. Review of Systems: As Per HPI Chest Pain PMH - Past Medical History Medical history: Reports: atrial fibrillation, cancer, COPD, coronary artery disease, diabetes, GERD, hyperlipidemia, hypertension, kidney stones, renal disease, other Surgical history: Reports: angioplasty/stent, appendectomy, cancer surgery, cataract, cholecystectomy, herniorrhaphy, pacemaker/AICD, pacemaker Psychiatric history: Reports: anxiety, depression - Social History Smoking Status: Former smoker Alcohol use: Reports: none Drug use: Reports: none Physical Exam Vital Signs Reviewed General: Patient is alert, oriented, and in no acute distress. HEENT: No facial asymmetry. Head is normocephalic and atraumatic. Oral mucosa moist. Trachea midline. Cardiovascular: Heart regular rate and rhythm without clicks, rubs, gallops, or murmurs. No JVD. PMI nondisplaced. BL radial and posterior tibial pulses 2/3 and equal. Respiratory: Symmetric chest rise with good respiratory effort. Bilateral breath sounds are clear without wheezing, crackles, or rhonchi. Abdomen: Bowel sounds present normoactive x-4 quadrants. Abdomen is soft, nondistended, and nontender. No organomegaly noted. Musculoskeletal: Spontaneously moving all extremities. No tenderness to chest palpation. Neuro: GCS 15. A&O x4 Skin: Warm, dry, intact. Psych: Patient's affect is appropriate for situation. - General Limitations: no limitations General appearance: alert, in no apparent distress Course Course Narrative: Patient's story is concerning. Will perform chest pain workup with aim to admit for, at minimum, chest pain rule-out ACS. EKG shows ventricular paced; no acute ischemic changes compared to previous. CXR unremarkable on my read. Troponin 0.02. No renal dysfunction. I discussed the patient with Dr. Doan, the admitting hospitalist, who is agreeable to admission for CP rule out ACS. Vital Signs Temperature 97.8 F 10/04/17 20:59 Pulse Rate 82 10/04/17 20:59 Respiratory Rate 24 10/04/17 20:59 Blood Pressure 161/79 10/04/17 20:59 O2 Sat by Pulse Oximetry 93 10/04/17 20:59 Temperature 98.2 F 10/05/17 07:18 Pulse Rate 68 10/05/17 07:18 Respiratory Rate 16 10/05/17 07:18 Blood Pressure 111/58 10/05/17 07:18 O2 Sat by Pulse Oximetry 95 10/05/17 07:18 Oxygen Delivery Oxygen Delivery Nasal Cannula Chest Pain - Lab Data Result diagrams: 10/05/17 03:49 10/05/17 03:49 Lab Results 10/04/17 10/04/17 10/04/17 Range/Units 21:37 21:37 21:37 WBC 10.9 (4.3-11.1) K/mcL RBC 4.99 (4.19-5.50) M/mcL Hgb 12.1 L (12.9-16.9) g/dL Hct 38.7 (37.5-50.1) % MCV 77.6 L (83.0-100.0) fL MCH 24.2 L (28.0-33.3) pg MCHC 31.3 L (31.6-35.5) g/dL RDW 20.7 H (11.5-14.5) % Plt Count 251 (140-400) K/mcL MPV 9.4 (9.4-12.4) fL Immature Gran % 0.4 (0-4) % Seg Neutrophils % 75.7 % Lymphocytes % 14.2 % Monocytes % 6.3 % Eosinophils % 2.8 % Basophils % 0.6 % Neutrophils # 8.3 (1.6-8.9) K/mcL Lymphocytes # 1.5 (0.6-4.6) K/mcL Monocytes # 0.7 (0.0-1.3) K/mcL Eosinophils # 0.3 (0.0-0.6) K/mcL Basophils # 0.1 (0.0-0.2) K/mcL PT 21.6 H (9.4-12.1) Seconds INR 2.0 APTT 41.9 H (26.0-36.0) Seconds Sodium 137 (136-145) mEq/L Potassium 4.3 (3.5-4.5) mEq/L Chloride 101 (98-109) mEq/L Carbon Dioxide 28 (19-29) mEq/L BUN 31 H (8-26) mg/dL Creatinine 1.25 (0.72-1.25) mg/dL Est GFR ( Amer) > 60 (> 60) Est GFR (Non-Af Amer) 56 L (> 60) BUN/Creatinine Ratio 25 (6-26) Glucose 196 H (70-99) mg/dL Calculated Osmolality 296 (280-300) Calcium 10.3 (8.6-10.8) mg/dL Troponin I (0-0.03) ng/mL 10/04/17 Range/Units 21:37 WBC (4.3-11.1) K/mcL RBC (4.19-5.50) M/mcL Hgb (12.9-16.9) g/dL Hct (37.5-50.1) % MCV (83.0-100.0) fL MCH (28.0-33.3) pg MCHC (31.6-35.5) g/dL RDW (11.5-14.5) % Plt Count (140-400) K/mcL MPV (9.4-12.4) fL Immature Gran % (0-4) % Seg Neutrophils % % Lymphocytes % % Monocytes % % Eosinophils % % Basophils % % Neutrophils # (1.6-8.9) K/mcL Lymphocytes # (0.6-4.6) K/mcL Monocytes # (0.0-1.3) K/mcL Eosinophils # (0.0-0.6) K/mcL Basophils # (0.0-0.2) K/mcL PT (9.4-12.1) Seconds INR APTT (26.0-36.0) Seconds Sodium (136-145) mEq/L Potassium (3.5-4.5) mEq/L Chloride (98-109) mEq/L Carbon Dioxide (19-29) mEq/L BUN (8-26) mg/dL Creatinine (0.72-1.25) mg/dL Est GFR ( Amer) (> 60) Est GFR (Non-Af Amer) (> 60) BUN/Creatinine Ratio (6-26) Glucose (70-99) mg/dL Calculated Osmolality (280-300) Calcium (8.6-10.8) mg/dL Troponin I 0.02 (0-0.03) ng/mL Heart Score - Score History: Moderately Suspicious EKG: Non Specific repolarisation Disturbance Age: Greater than 65 Risk Factors: Equal/Greater than 3 risk factor or history of atherosclerotic disease Troponin: Less than normal limit HEART Score Total: 6 Attestation Statement - Attestation Attestation: I examined this patient and my medical decision-making was reviewed with the Resident Physician. I agree with the documented findings, disposition and treatment plan as described except to the extent set forth below. Patient with concern for chest pain. Significant cardiac history. Plan admit for ACS rule out. Cardiac biomarkers were negative at time of admission. Nitroglycerin, aspirin was administered.
[2017-10-04 21:50] LABS: Basophils # 0.1 K/mcL (0.0-0.2); Basophils % 0.6 %; Eosinophils # 0.3 K/mcL (0.0-0.6); Eosinophils % 2.8 %; Hematocrit 38.7 % (37.5-50.1); Hemoglobin 12.1 g/dL (12.9-16.9); Immature Granulocytes % 0.4 % (0-4); Lymphocytes # 1.5 K/mcL (0.6-4.6); Lymphocytes % 14.2 %; Mean Corpuscular HGB Conc 31.3 g/dL (31.6-35.5); Mean Corpuscular Hemoglobin 24.2 pg (28.0-33.3); Mean Corpuscular Volume 77.6 fL (83.0-100.0); Mean Platelet Volume 9.4 fL (9.4-12.4); Monocytes # 0.7 K/mcL (0.0-1.3); Monocytes % 6.3 %; Neutrophils # 8.3 K/mcL (1.6-8.9); Platelet Count 251 K/mcL (140-400); Red Blood Count 4.99 M/mcL (4.19-5.50); Red Cell Distribution Width 20.7 % (11.5-14.5); Segmented Neutrophils % 75.7 %
[2017-10-04 21:55] LABS: Prothrombin Time 21.6 Seconds (9.4-12.1)
[2017-10-04 21:57] LABS: Activated Partial Thrombo Time 41.9 Seconds (26.0-36.0)
[2017-10-04 22:02] LABS: BUN/Creatinine Ratio 25 (6-26); Blood Urea Nitrogen 31 mg/dL (8-26); Calcium 10.3 mg/dL (8.6-10.8); Carbon Dioxide 28 mEq/L (19-29); Chloride 101 mEq/L (98-109); Glucose 196 mg/dL (70-99); Osmolality,Calculated 296 (280-300); Potassium 4.3 mEq/L (3.5-4.5); Sodium 137 mEq/L (136-145); eGFR For African Americans > 60 (> 60); eGFR For Non-African Americans 56 (> 60)
--- NOTE | 2017-10-04 22:52 | Internal Med History&Physical ---
Date of Encounter: 10/04/17 Time of Encounter: 22:49 Assessment and Plan (1) Precordial chest pain Current visit: Yes Status: Acute Atypical chest pain in a patient with history of CAD and multiple stents, recent stress test negative for ischemia. Placed the patient on observation. Trend troponin. engine monitor. We will rule out ACS. No need to repeat stress test or echocardiogram if serial troponins are negative. (2) COPD (chronic obstructive pulmonary disease) Current visit: No Status: Chronic Patient is chronically anticoagulated with Xarelto will continue this. Qualifiers: Atrial fibrillation type: paroxysmal Qualified Code(s): I48.0 - Paroxysmal atrial fibrillation (3) Chronic respiratory failure with hypoxia Current visit: No Status: Chronic Insulin sliding scale. 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 Qualifiers: [place] vs. transplanted heart: [place] heart Associated angina: without angina Qualified Code(s): I25.10 - Atherosclerotic heart disease of [place] coronary artery without angina pectoris (5) Chronic respiratory failure with hypoxia Current visit: No Status: Chronic Insulin sliding scale. Diabetic diet COPD: Stable no evidence of exacerbation. We will continue with inhaled albuterol and ipratropium. Chronic hypoxic respiratory failure: continue with oxygen by nasal cannula. No evidence of acute exacerbation. 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 Vizcarra is a 77 year old male with past medical history significant for hypertension, coronary artery disease status post multiple PCIwith 8 stents placed, hyperlipidemia, diabetes, COPD, chronic hypoxic respiratory failure on home oxygen who presents to the hospital for evaluation of chest pain. He reports that chest pain started this afternoon at rest, was located in the left side of the chest, 5/10 in intensity, jabbing in nature and has lasted on and off for the 3 hours. Denies association with physical exertion. Denies any associated shortness of breath, diaphoresis and lightheadedness. Review of systems: Positive for impaired hearing, vision defect wearing corrective glasses, chronic left hip pain. The remainder of a 10 point review of systems was negative. Surgical history: Multiple including cholecystectomy, pacemaker placement, hernia repair. Family history reviewed and found to be noncontributory Social history: Quit smoking 6 years ago, denies alcohol and drug use. He lives at home with family and he is independent in his ADLs. Past Med Surg Social Fam HX - Past Medical History Medical history: atrial fibrillation, cancer, COPD, coronary artery disease, diabetes, GERD, hyperlipidemia, hypertension, kidney stones, renal disease, other Psychiatric history: anxiety, depression - Past Surgical History Surgical History: angioplasty/stent, appendectomy, cancer surgery, cataract, cholecystectomy, herniorrhaphy, pacemaker/AICD, pacemaker - Social History Smoking Status: Former smoker Smokeless Tobacco Status: No Alcohol use: none Drug use: none - Family History Mother Family Member Ethnicity: Non- Living Status: Hx Family Cardiac Disorders: Yes (HD) Brother Family Member Ethnicity: Non- Living Status: Hx Family Cancer: Yes (Leukemia) Sister Family Member Ethnicity: Non- Living Status: Hx Family Cardiac Disorders: Yes (HD) Hx Family Cancer: Yes Father Family Member Ethnicity: Non- Living Status: Hx Family Cardiac Disorders: Yes (HTN, stroke) Hx Family Respiratory Disorders: No Hx Family Cancer: No Hx Family GI Disorders: No Hx Family Endocrine Disorder: Yes (DM) Hx Family Neuromuscular Disorders: No Hx Family Neurologic Disorders: No Hx Family HEENT Disorders: No Hx Family Autoimmune Disorders: No Internal Medicine - H&P: Meds Albuterol Sulfate [Albuterol Inhaler] 1 puff IH Q4H PRN 08/21/15 [History] Atorvastatin Calcium [Lipitor] 20 mg PO 1700 08/21/15 [History] Bupropion HCl [Wellbutrin Xl] 300 mg PO DAILY 08/21/15 [History] Fluticasone/Salmeterol [Advair 250-50 Diskus] 1 each IH BID 08/21/15 [History] Insulin Glargine,Hum.rec.anlog [Lantus Solostar] 60 unit SQ HS 08/21/15 [History ] Loratadine [Claritin] 10 mg PO DAILY 08/21/15 [History] Pantoprazole Sodium 40 mg PO DAILY 08/21/15 [History] Sertraline [Zoloft] 200 mg PO DAILY 08/21/15 [History] Tamsulosin [Flomax] 0.4 mg PO HS 08/21/15 [History] Tiotropium [Spiriva] 1 cap IH HS 08/21/15 [History] Cholecalciferol (Vitamin D3) [Vitamin D3] 2,000 unit PO DAILY 12/18/15 [History] Folic Acid 1 mg PO DAILY 12/18/15 [History] Insulin LISPRO [Humalog] 15 unit SQ TIDWM 06/19/16 [History] Clopidogrel [Plavix] 75 mg PO DAILY #30 tablet 06/20/16 [Rx] Rivaroxaban [Xarelto] 20 mg PO 1700 10/30/16 [History] Potassium Chloride 10 meq PO DAILY #30 tab.er.prt 11/03/16 [Rx] [place]-3/Dha/Epa/Fish Oil [Fish Oil 1,000 mg Softgel] 1 cap PO TID 12/04/16 [ History] Oxygen 2 l NS HS 12/04/16 [History] Furosemide [Lasix] 20 mg PO DAILY PRN 04/16/17 [History] Magnesium Oxide [Magnesium] 400 mg PO BID 04/16/17 [History] Metoprolol [Lopressor] 25 mg PO BID #60 tablet 05/12/17 [Rx] Docusate Sodium [Dok] 100 mg PO DAILY PRN 06/22/17 [History] Ascorbic Acid [Vitamin C] 500 mg PO HS #30 tablet 07/02/17 [Rx] Ferrous Gluconate 324 mg PO BID 08/13/17 [History] Hydrocortisone 2.5% CREAM [Cortaid] 1 appl TP BID #1 tube 09/29/17 [Rx] 3 Allergy/AdvReac Type Severity Reaction Status Date / Time codeine Allergy Difficulty Verified 10/04/17 21:39 Breathing Homatropine AdvReac Insomnia Verified 10/04/17 21:39 [From Homatropaire] hydrocodone AdvReac Insomnia Verified 10/04/17 21:39 All Systems PM: A 10-system review of systems was performed and is negative for pertinent findings except as documented above in the HPI. - Constitutional Vitals: Temp Pulse Resp BP Pulse Ox 97.8 F 63 18 118/60 98 10/04/17 20:59 10/04/17 22:20 10/04/17 22:20 10/04/17 22:20 10/04/17 22:20 General appearance: Present: A&O X 3 - Eye Eye exam: Present: PERRL, conjuntiva pink, sclera anicteric Pupils: Present: PERRL - Respiratory Respiratory exam: Present: CTAB. Absent: accessory muscle use, rales, rhonchi, wheezes - Cardiovascular Cardiovascular exam: Present: RRR, +S1, +S2. Absent: diastolic murmur, gallop, rubs, systolic murmur - GI/Abdominal GI/Abdominal exam: Present: normal bowel sounds, soft, no peritoneal signs. Absent: distended, tenderness - Extremities Exam Extremities exam: Present: warm, radial pulses palpable and symmetrical. Absent : calf tenderness, cyanotic, pedal edema - Neurological Exam Neurological exam: Present: CN II-XII intact, oriented X3, no focal deficits. Absent: pronater drift, facial droop, speech deficit - Skin Skin exam: Present: dry, intact Internal Med - H&P Results - Labs CBC & Chem 7: 10/04/17 21:37 10/04/17 21:37 - Impressions Stress test from May 2017 reviewed in the patient's medical record shows a fixed inferior wall defect consistent with prior MT. Perfusion imaging was negative for ischemia. Gaited EF was 47%. Echocardiogram from 05/11/2017 per record review shows LV ejection fraction of 60%.
[2017-10-04] MEDS ORDERED: Furosemide 20 MG TABLET PO PRN (23:02)
[2017-10-04] MEDS ORDERED: D5% in Water 1,000 ML IVC PRN (23:05)
[2017-10-04] MEDS ORDERED: *HR* Dextrose 50 % in Water (Syg) 50 ML SYRINGE IVP PRN (23:05)
[2017-10-04] MEDS ORDERED: Dextrose Gel 15 GM PO PRN ×2 (23:05)
[2017-10-04] MEDS ORDERED: Acetaminophen 325 MG TABLET PO PRN (23:06)
[2017-10-04] MEDS ORDERED: Naloxone 0.4 MG/ML INJ IVP PRN (23:06)
[2017-10-04] MEDS ORDERED: Ondansetron 4 MG/2 ML VIAL IVP PRN (23:06)
[2017-10-04] MEDS ORDERED: Albuterol 2.5 MG/3 ML NEBULIZER IH PRN (23:08)
[2017-10-04] MEDS: Insulin DETEMIR 100 UNIT/ML X5UNITS SQ SCH (23:48)
[2017-10-04] MEDS: Insulin LISPRO 300 UNITS/3 ML VIAL SQ SCH (23:48)
[2017-10-05 05:04] LABS: Basophils % 0.4 %; Eosinophils # 0.2 K/mcL (0.0-0.6); Eosinophils % 2.3 %; Hematocrit 34.7 % (37.5-50.1); Hemoglobin 10.7 g/dL (12.9-16.9); Immature Granulocytes % 0.5 % (0-4); Lymphocytes # 1.5 K/mcL (0.6-4.6); Lymphocytes % 16.6 %; Mean Corpuscular HGB Conc 30.8 g/dL (31.6-35.5); Mean Corpuscular Volume 77.8 fL (83.0-100.0); Mean Platelet Volume 9.5 fL (9.4-12.4); Monocytes # 0.7 K/mcL (0.0-1.3); Monocytes % 7.3 %; Neutrophils # 6.7 K/mcL (1.6-8.9); Platelet Count 231 K/mcL (140-400); Red Blood Count 4.46 M/mcL (4.19-5.50); Red Cell Distribution Width 20.9 % (11.5-14.5); Segmented Neutrophils % 72.9 %
[2017-10-05 05:29] LABS: BUN/Creatinine Ratio 25 (6-26); Blood Urea Nitrogen 29 mg/dL (8-26); Calcium 9.5 mg/dL (8.6-10.8); Carbon Dioxide 27 mEq/L (19-29); Chloride 103 mEq/L (98-109); Chol/HDL Ratio 3.9 (0-4.9); Cholesterol 102 mg/dL (< 200); Glucose 139 mg/dL (70-99); HDL Cholesterol 26 mg/dL (40-59); LDL Cholesterol,Calculated 37 mg/dL (0-99); Magnesium 2.1 mg/dL (1.6-2.6); Osmolality,Calculated 296 (280-300); Potassium 4.4 mEq/L (3.5-4.5); Sodium 139 mEq/L (136-145); Triglycerides 195 mg/dL (< 150); eGFR For African Americans > 60 (> 60); eGFR For Non-African Americans > 60 (> 60)
[2017-10-05] MEDS: Insulin LISPRO 300 UNITS/3 ML VIAL SQ SCH ×4 (08:53→12:42)
[2017-10-05] MEDS: Insulin DETEMIR 100 UNIT/ML X5UNITS SQ SCH (08:55)
[2017-10-05] MEDS ORDERED: Loratadine 10 MG TABLET PO SCH (09:00)
[2017-10-05] MEDS ORDERED: BuPROPion XL (24 HR) 150 MG TABLET PO SCH (09:00)
[2017-10-05] MEDS ORDERED: Magnesium Oxide 400 MG TABLET PO SCH (09:00)
[2017-10-05] MEDS ORDERED: Budesonide/Formoterol 80/4.5 MDI IH SCH (10:00)
[2017-10-05 11:00] VITALS: BP 112/66
--- NOTE | 2017-10-05 14:18 | Discharge Summary ---
Date of Encounter: 10/05/17 Time of Encounter: 14:16 - Discharge Diagnosis (1) Precordial chest pain Priority: Primary Status: Resolved Comments: Malcolm Vizcarra is a 77-year-old male with past medical history CAD, COPD, A. fib , diabetes who presented to [facility] on 10/04/2017 with complaints of chest pain. He was placed in observation status for ACS rule out. Atypical chest pain in a patient with history of CAD and multiple stents, recent stress test negative for ischemia. Serial troponin negative, EKG without acute ST changes. 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 No chest pain no recurrence while inpatient. No further workup needed at this time. (2) CAD (coronary artery disease), [place] coronary artery Priority: Primary Status: Chronic Comments: per hx. with chest pain as noted above. Do not suspect ACS; patient had recent negative stress test. Serial troponins negative and EKG without acute ST changes. Continue medical management with home ASA, and statin, BB, Xarelto. Recommend follow-up with primary Rewards Consultant within 2 weeks Qualifiers: [place] vs. transplanted heart: [place] heart Associated angina: without angina Qualified Code(s): I25.10 - Atherosclerotic heart disease of [place] coronary artery without angina pectoris (3) Atrial fibrillation Priority: Primary Status: Chronic Comments: per hx. rate controlled. Continue home BB, Xarelto Qualifiers: Atrial fibrillation type: paroxysmal Qualified Code(s): I48.0 - Paroxysmal atrial fibrillation (4) COPD (chronic obstructive pulmonary disease) Priority: Primary Status: Chronic Comments: per hx. wears oxygen PRN home. No evidence of exacerbation. Continue home inhalers. Qualifiers: COPD type: unspecified COPD Qualified Code(s): J44.9 - Chronic obstructive pulmonary disease, unspecified - Discharge Medications Home Medications: Albuterol Sulfate [Albuterol Inhaler] 1 puff IH Q4H PRN 08/21/15 [History] Atorvastatin Calcium [Lipitor] 20 mg PO 1700 08/21/15 [History] Bupropion HCl [Wellbutrin Xl] 300 mg PO DAILY 08/21/15 [History] Fluticasone/Salmeterol [Advair 250-50 Diskus] 1 each IH BID 08/21/15 [History] Insulin Glargine,Hum.rec.anlog [Lantus Solostar] 60 unit SQ HS 08/21/15 [History ] Loratadine [Claritin] 10 mg PO DAILY 08/21/15 [History] Pantoprazole Sodium 40 mg PO DAILY 08/21/15 [History] Sertraline [Zoloft] 200 mg PO DAILY 08/21/15 [History] Tamsulosin [Flomax] 0.4 mg PO HS 08/21/15 [History] Tiotropium [Spiriva] 1 cap IH HS 08/21/15 [History] Cholecalciferol (Vitamin D3) [Vitamin D3] 2,000 unit PO DAILY 12/18/15 [History] Folic Acid 1 mg PO DAILY 12/18/15 [History] Insulin LISPRO [Humalog] 15 unit SQ TIDWM 06/19/16 [History] Clopidogrel [Plavix] 75 mg PO DAILY #30 tablet 06/20/16 [Rx] Rivaroxaban [Xarelto] 20 mg PO 1700 10/30/16 [History] Potassium Chloride 10 meq PO DAILY #30 tab.er.prt 11/03/16 [Rx] [place]-3/Dha/Epa/Fish Oil [Fish Oil 1,000 mg Softgel] 1 cap PO TID 12/04/16 [ History] Oxygen 2 l NS HS 12/04/16 [History] Furosemide [Lasix] 20 mg PO DAILY PRN 04/16/17 [History] Magnesium Oxide [Magnesium] 400 mg PO BID 04/16/17 [History] Metoprolol [Lopressor] 25 mg PO BID #60 tablet 05/12/17 [Rx] Docusate Sodium [Dok] 100 mg PO DAILY PRN 06/22/17 [History] Ascorbic Acid [Vitamin C] 500 mg PO HS #30 tablet 07/02/17 [Rx] Ferrous Gluconate 324 mg PO BID 08/13/17 [History] Hydrocortisone 2.5% CREAM [Cortaid] 1 appl TP BID #1 tube 09/29/17 [Rx] Allergies/Adverse Reactions: 3 Allergy/AdvReac Type Severity Reaction Status Date / Time codeine Allergy Difficulty Verified 10/04/17 21:39 Breathing Homatropine AdvReac Insomnia Verified 10/04/17 21:39 [From Homatropaire] hydrocodone AdvReac Insomnia Verified 10/04/17 21:39 Date of admission: 10/04/17 22:23 Primary care physician: Jose Seymour DO Discharging clinician: Whitney Flores Anticipated date of discharge: 10/05/17 - Patient Status Disposition: Home, Self-Care Condition: Good - Discharge Instructions Instructions: Chest Pain (ED) Follow Up With: Shayne Hardy MD [Partnered Physician] - 10/11/17 10:00 am Jose Seymour DO [Primary Care Provider] - 10/11/17 11:30 am - Diet and Activity Activity: increase activity as tolerated Diet: low fat, low cholesterol Interval History: Seen and examined at bedside. Patient is new to me, information obtained from chart review and patient report. Patient says he feels back to baseline and would like to discharge him today. No further chest pain. Denies shortness of breath. Patient says he was working in his yard digging holes and working with fencepost and thinks he may have overdone it. Hospital course: See assessment and plan for hospital course - Time Spent with Patient Total time spent providing and/or coordinating discharge services: - Constitutional Vitals: Temp Pulse Resp BP Pulse Ox 98.2 F 67 16 112/66 92 10/05/17 10:59 10/05/17 10:59 10/05/17 10:59 10/05/17 10:59 10/05/17 10:59 General appearance: Present: A&O X 3 - Head Head exam: Present: atraumatic, normocephalic - Eye Eye exam: Present: PERRL, conjuntiva pink, sclera anicteric Pupils: Present: PERRL - Neck Neck exam general surgery: Present: supple, trachea midline. Absent: lymphadenopathy - Respiratory Respiratory exam: Present: CTAB. Absent: accessory muscle use, rales, rhonchi, wheezes - Cardiovascular Cardiovascular exam: Present: RRR, +S1, +S2. Absent: diastolic murmur, gallop, rubs, systolic murmur - GI/Abdominal GI/Abdominal exam: Present: normal bowel sounds, soft, no peritoneal signs. Absent: distended, tenderness - Extremities Exam Extremities exam: Present: warm, radial pulses palpable and symmetrical. Absent : calf tenderness, cyanotic, pedal edema - Neurological Exam Neurological exam: Present: CN II-XII intact, oriented X3, no focal deficits. Absent: pronater drift, facial droop, speech deficit - Skin Skin exam: Present: dry, intact
[2017-10-05] MEDS ORDERED: *HR* Rivaroxaban 10 MG TABLET PO SCH (17:00)
--- NOTE | 2017-10-05 19:39 | Electrocardiograph Report ---
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
== END 2017-10-05 16:00 | disposition home or self-care (01) ==
LOC: EMEROO 20:56 → 3BNU 20:56
PROVIDERS: ADMIT Internal Medicine; ATTEND Registered Nurse

== ENCOUNTER 2018-04-15 11:19 | Inpatient (IN) ==
[2018-04-15] MEDS ORDERED: Aspirin 81 MG TAB.CHEW PO ONE (11:31)
--- NOTE | 2018-04-15 11:38 | Emergency Department Note ---
Disposition Clinical Impression: Acute dyspnea Acute exacerbation of CHF (congestive heart failure) Qualifiers: Heart failure type: unspecified Qualified Code(s): I50.9 - Heart failure, unspecified Chest pain Qualifiers: Chest pain type: unspecified Qualified Code(s): R07.9 - Chest pain, unspecified Disposition: Admitted As Inpatient Condition: Undetermined Referrals: Jose Seymour DO [Primary Care Provider] - Forms: ED Satisfaction Letter Time of Disposition: 13:23 Chest Pain HPI - General Chief Complaint: ED Chest Pain Stated Complaint: chest pain, MARAL Time Seen by Provider: 04/15/18 11:26 Source: patient Mode of arrival: wheelchair Limitations: no limitations Vital Signs Reviewed: Yes Nursing Notes Reviewed: Yes - History of Present Illness HPI Narrative: 77-year-old male with history of CHF, COPD, hypertension, arrives to the emergency department with complaint of shortness of breath over the past 24 hours. The patient states this feels very similar to when he had a CHF exacerbation the past. In addition the patient was noted to have anemia where he is currently being treated with iron infusions, he also states that he has been expressing some generalized weakness and this is similar to when his iron was low in the past. The patient denies any black or bloody stools, hemoptysis , unilateral leg swelling, history of DVT or PE, recent immobilizations. The patient is resting comfortably in the room speaking full since his but he is mildly tachypneic overall. He is stating that he did have some intermittent chest discomfort on the left side. Denies any other complaints at this time. Severity scale (1-10): 2 - Related Data Home Medications Medication Instructions Recorded Confirmed Albuterol Sulfate [Albuterol 1 puff IH Q4H PRN 08/21/15 04/11/18 Inhaler] Atorvastatin Calcium [Lipitor] 20 mg PO 1700 08/21/15 04/11/18 Bupropion HCl [Wellbutrin Xl] 300 mg PO DAILY 08/21/15 04/11/18 Fluticasone/Salmeterol [Advair 1 puff IH BID 08/21/15 04/11/18 250-50 Diskus] Insulin Glargine,Hum.rec.anlog 60 unit SQ HS 08/21/15 04/11/18 [Lantus Solostar] Loratadine [Claritin] 10 mg PO DAILY 08/21/15 04/11/18 Pantoprazole Sodium 40 mg PO DAILY 08/21/15 04/11/18 Sertraline [Zoloft] 200 mg PO DAILY 08/21/15 04/11/18 Tamsulosin [Flomax] 0.4 mg PO HS 08/21/15 04/11/18 Tiotropium [Spiriva] 1 cap IH DAILY 08/21/15 04/11/18 Cholecalciferol (Vitamin D3) 2,000 unit PO DAILY 12/18/15 04/11/18 [Vitamin D3] Folic Acid 1 mg PO DAILY 12/18/15 04/11/18 Insulin LISPRO [Humalog] 12 - 13 unit SQ TIDWM 06/19/16 04/11/18 [place]-3/Dha/Epa/Fish Oil [Fish Oil 1 cap PO TID 12/04/16 04/11/18 1,000 mg Softgel] Oxygen 2 l NS HS 12/04/16 04/11/18 Furosemide [Lasix] 20 mg PO DAILY 04/16/17 04/11/18 Magnesium Oxide [Magnesium] 400 mg PO BID 04/16/17 04/11/18 Docusate Sodium [Dok] 100 mg PO DAILY 06/22/17 04/11/18 Ferrous Gluconate 324 mg PO BID 08/13/17 04/11/18 Aspirin [Adult Aspirin Regimen] 81 mg PO DAILY 01/06/18 04/11/18 Previous Rx's Medication Instructions Recorded Clopidogrel [Plavix] 75 mg PO DAILY #30 tablet 06/20/16 Potassium Chloride 10 meq PO DAILY #30 tab.er.prt 11/03/16 Metoprolol [Lopressor] 25 mg PO BID #60 tablet 05/12/17 Ascorbic Acid [Vitamin C] 500 mg PO HS #30 tablet 07/02/17 Allergies Allergy/AdvReac Type Severity Reaction Status Date / Time codeine Allergy Difficulty Verified 04/11/18 13:20 Breathing Homatropine AdvReac Insomnia Verified 04/11/18 13:20 [From Homatropaire] hydrocodone AdvReac Insomnia Verified 04/11/18 13:20 All systems ED: reviewed and negative except as stated. Constitutional: Reports: weakness. Denies: fever, chills ENT ED: Denies: congestion Cardiovascular: Reports: chest pain, dyspnea on exertion, edema. Denies: palpitations, orthopnea, syncope Respiratory: Reports: dyspnea. Denies: cough, wheezes, sputum production Gastrointestinal: Denies: abdominal pain, nausea, vomiting Genitourinary: Denies: urgency, dysuria Musculoskeletal: Denies: back pain Integumentary: Denies: rash Neurological: Denies: headache Chest Pain PMH - Past Medical History Medical history: Reports: atrial fibrillation, cancer, COPD, coronary artery disease, diabetes, GERD, hyperlipidemia, hypertension, kidney stones, renal disease, other Surgical history: Reports: angioplasty/stent, appendectomy, cancer surgery, cataract, cholecystectomy, herniorrhaphy, pacemaker Psychiatric history: Reports: anxiety, depression - Social History Smoking Status: Former smoker Alcohol use: Reports: none Drug use: Reports: none Physical Exam - General Limitations: no limitations General appearance: alert, in distress (mild respiratory distress) - Head Head exam: atraumatic, normocephalic, normal inspection - Eye Eye exam: Present: normal appearance, PERRL, EOMI - ENT ENT exam: normal exam, normal oropharynx, mucous membranes moist - Neck Neck exam: Present: normal inspection, full ROM, trachea midline - Chest Chest inspection: Present: normal inspection, symmetric chest wall rise - Respiratory Respiratory exam: Present: respiratory distress (mild), other (coarse breath sounds) - Cardiovascular Cardiovascular exam: Present: regular rate, normal rhythm, normal heart sounds - Abdominal Exam Abdominal exam: Present: soft, Non-Tender. Absent: tenderness, distention, guarding, rebound, rigidity - Extremities Exam Extremities exam: Present: normal inspection, full ROM, pedal edema (1+) - Neurological Exam Neurological exam: Present: alert, oriented X3 - Skin Skin exam: Present: warm, dry, intact, normal color Course Vital Signs Temperature 97.8 F 04/15/18 11:22 Pulse Rate 80 04/15/18 11:22 Respiratory Rate 16 04/15/18 11:22 Blood Pressure 148/77 04/15/18 11:22 O2 Sat by Pulse Oximetry 93 04/15/18 11:22 Temperature 97.8 F 04/15/18 11:28 Pulse Rate 69 04/15/18 13:06 Respiratory Rate 18 04/15/18 13:06 Blood Pressure 134/73 04/15/18 13:06 O2 Sat by Pulse Oximetry 93 04/15/18 13:06 Oxygen Delivery Oxygen Delivery Nasal Cannula Chest Pain - MDM Narrative Medical decision making narrative: Patient's workup in the emergency department given streets findings consistent with congestive heart failure. Patient's chest history shows mild pulmonary edema combined with the patient's rhonchi on auscultation and his O2 saturations requiring nasal cannula oxygen, this is likely a CHF exacerbation. The patient was administered 20 mg IV Lasix as the patient takes 20 mg by mouth Lasix daily. The patient will be admitted to the hospital for further care given the patient's dyspnea on exertion and dyspnea as well as the chest pain and mild elevation in his troponin at 0.04. This is equivocal however we will give the patient aspirin. We will likely trending the patient's troponin upon admission. The patient was made aware and agrees to plan. No further questions or concerns noted at this time. Accepted by Dr. Bolden. - Lab Data Lab results reviewed: Yes I reviewed the patient's lab results. Result diagrams: 04/15/18 11:34 04/15/18 11:34 Lab Results 04/15/18 04/15/18 04/15/18 Range/Units 11:34 11:34 11:34 WBC 11.7 H (4.3-11.1) K/mcL RBC 4.96 (4.19-5.50) M/mcL Hgb 12.8 L (12.9-16.9) g/dL Hct 40.9 (37.5-50.1) % MCV 82.5 L (83.0-100.0) fL MCH 25.8 L (28.0-33.3) pg MCHC 31.3 L (31.6-35.5) g/dL RDW 21.0 H (11.5-14.5) % Plt Count 178 (140-400) K/mcL MPV 9.5 (9.4-12.4) fL Immature Gran % 0.4 (0-4) % Seg Neutrophils % 82.5 % Lymphocytes % 8.6 % Monocytes % 6.5 % Eosinophils % 1.5 % Basophils % 0.5 % Neutrophils # 9.6 H (1.6-8.9) K/mcL Lymphocytes # 1.0 (0.6-4.6) K/mcL Monocytes # 0.8 (0.0-1.3) K/mcL Eosinophils # 0.2 (0.0-0.6) K/mcL Basophils # 0.1 (0.0-0.2) K/mcL PT 12.1 (9.4-12.1) Seconds INR 1.1 APTT 33.7 (26.0-36.0) Seconds Sodium (136-145) mEq/L Potassium (3.5-5.1) mEq/L Chloride (98-107) mEq/L Carbon Dioxide (23-29) mEq/L BUN (8-23) mg/dL Creatinine (0.70-1.30) mg/dL Est GFR ( Amer) (> 60) Est GFR (Non-Af Amer) (> 60) BUN/Creatinine Ratio (6-26) Glucose (70-105) mg/dL Calculated Osmolality (280-300) Calcium (8.6-10.3) mg/dL Troponin I (< 0.04) ng/mL B-Natriuretic Peptide 434 H (Less than 100) pg/mL 04/15/18 Range/Units 11:34 WBC (4.3-11.1) K/mcL RBC (4.19-5.50) M/mcL Hgb (12.9-16.9) g/dL Hct (37.5-50.1) % MCV (83.0-100.0) fL MCH (28.0-33.3) pg MCHC (31.6-35.5) g/dL RDW (11.5-14.5) % Plt Count (140-400) K/mcL MPV (9.4-12.4) fL Immature Gran % (0-4) % Seg Neutrophils % % Lymphocytes % % Monocytes % % Eosinophils % % Basophils % % Neutrophils # (1.6-8.9) K/mcL Lymphocytes # (0.6-4.6) K/mcL Monocytes # (0.0-1.3) K/mcL Eosinophils # (0.0-0.6) K/mcL Basophils # (0.0-0.2) K/mcL PT (9.4-12.1) Seconds INR APTT (26.0-36.0) Seconds Sodium 140 (136-145) mEq/L Potassium 3.9 (3.5-5.1) mEq/L Chloride 105 (98-107) mEq/L Carbon Dioxide 26 (23-29) mEq/L BUN 24 H (8-23) mg/dL Creatinine 1.13 (0.70-1.30) mg/dL Est GFR ( Amer) > 60 (> 60) Est GFR (Non-Af Amer) > 60 (> 60) BUN/Creatinine Ratio 21 (6-26) Glucose 152 H (70-105) mg/dL Calculated Osmolality 297 (280-300) Calcium 9.0 (8.6-10.3) mg/dL Troponin I 0.04 H* (< 0.04) ng/mL B-Natriuretic Peptide (Less than 100) pg/mL - Radiology Data Radiology results reviewed: Yes I reviewed the patient's radiology results. Chest X-Ray 04/15/18 11:31 IMPRESSION: 1. Mild pulmonary edema. D/ / 04/15/2018 12:30:17 Aster Bishop MD / jasmin Interpreting Provider: Aster Bishop MD - EKG Data EKG attestation: Yes I reviewed and interpreted this EKG. EKG results narrative: Heart rate 86 bpm. Electronic ventricular pacemaker. No ST elevation or ST depression noted.
[2018-04-15 11:46] LABS: Basophils # 0.1 K/mcL (0.0-0.2); Basophils % 0.5 %; Eosinophils # 0.2 K/mcL (0.0-0.6); Eosinophils % 1.5 %; Hematocrit 40.9 % (37.5-50.1); Hemoglobin 12.8 g/dL (12.9-16.9); Immature Granulocytes % 0.4 % (0-4); Lymphocytes % 8.6 %; Mean Corpuscular HGB Conc 31.3 g/dL (31.6-35.5); Mean Corpuscular Hemoglobin 25.8 pg (28.0-33.3); Mean Corpuscular Volume 82.5 fL (83.0-100.0); Mean Platelet Volume 9.5 fL (9.4-12.4); Monocytes # 0.8 K/mcL (0.0-1.3); Monocytes % 6.5 %; Neutrophils # 9.6 K/mcL (1.6-8.9); Platelet Count 178 K/mcL (140-400); Red Blood Count 4.96 M/mcL (4.19-5.50); Segmented Neutrophils % 82.5 %
[2018-04-15 12:14] LABS: BUN/Creatinine Ratio 21 (6-26); Blood Urea Nitrogen 24 mg/dL (8-23); Carbon Dioxide 26 mEq/L (23-29); Chloride 105 mEq/L (98-107); Glucose 152 mg/dL (70-105); Osmolality,Calculated 297 (280-300); Potassium 3.9 mEq/L (3.5-5.1); Sodium 140 mEq/L (136-145); eGFR For African Americans > 60 (> 60); eGFR For Non-African Americans > 60 (> 60)
[2018-04-15 12:18] LABS: Troponin I 0.04 ng/mL (< 0.04)
[2018-04-15 12:38] LABS: INR 1.1; Prothrombin Time 12.1 Seconds (9.4-12.1)
[2018-04-15 12:41] LABS: Activated Partial Thrombo Time 33.7 Seconds (26.0-36.0)
[2018-04-15] MEDS ORDERED: Furosemide 20 MG/2 ML VIAL IVP ONE (12:48)
--- NOTE | 2018-04-15 12:50 | Emergency Department Note ---
Disposition Clinical Impression: Chest pain Qualifiers: Chest pain type: unspecified Qualified Code(s): R07.9 - Chest pain, unspecified Disposition: Admitted As Inpatient Forms: ED Satisfaction Letter General Adult HPI - General Chief complaint: ED Chest Pain Stated complaint: chest pain, MARAL Time Seen by Provider: 04/15/18 11:26 Source: patient Mode of arrival: wheelchair Limitations: no limitations - History of Present Illness Pain Scale: 2 - Related Data Home Medications Medication Instructions Recorded Confirmed Albuterol Sulfate [Albuterol 1 puff IH Q4H PRN 08/21/15 04/11/18 Inhaler] Atorvastatin Calcium [Lipitor] 20 mg PO 1700 08/21/15 04/11/18 Bupropion HCl [Wellbutrin Xl] 300 mg PO DAILY 08/21/15 04/11/18 Fluticasone/Salmeterol [Advair 1 puff IH BID 08/21/15 04/11/18 250-50 Diskus] Insulin Glargine,Hum.rec.anlog 60 unit SQ HS 08/21/15 04/11/18 [Lantus Solostar] Loratadine [Claritin] 10 mg PO DAILY 08/21/15 04/11/18 Pantoprazole Sodium 40 mg PO DAILY 08/21/15 04/11/18 Sertraline [Zoloft] 200 mg PO DAILY 08/21/15 04/11/18 Tamsulosin [Flomax] 0.4 mg PO HS 08/21/15 04/11/18 Tiotropium [Spiriva] 1 cap IH DAILY 08/21/15 04/11/18 Cholecalciferol (Vitamin D3) 2,000 unit PO DAILY 12/18/15 04/11/18 [Vitamin D3] Folic Acid 1 mg PO DAILY 12/18/15 04/11/18 Insulin LISPRO [Humalog] 12 - 13 unit SQ TIDWM 06/19/16 04/11/18 [place]-3/Dha/Epa/Fish Oil [Fish Oil 1 cap PO TID 12/04/16 04/11/18 1,000 mg Softgel] Oxygen 2 l NS HS 12/04/16 04/11/18 Furosemide [Lasix] 20 mg PO DAILY 04/16/17 04/11/18 Magnesium Oxide [Magnesium] 400 mg PO BID 04/16/17 04/11/18 Docusate Sodium [Dok] 100 mg PO DAILY 06/22/17 04/11/18 Ferrous Gluconate 324 mg PO BID 08/13/17 04/11/18 Aspirin [Adult Aspirin Regimen] 81 mg PO DAILY 01/06/18 04/11/18 Previous Rx's Medication Instructions Recorded Clopidogrel [Plavix] 75 mg PO DAILY #30 tablet 06/20/16 Potassium Chloride 10 meq PO DAILY #30 tab.er.prt 11/03/16 Metoprolol [Lopressor] 25 mg PO BID #60 tablet 05/12/17 Ascorbic Acid [Vitamin C] 500 mg PO HS #30 tablet 07/02/17 Allergies Allergy/AdvReac Type Severity Reaction Status Date / Time codeine Allergy Difficulty Verified 04/11/18 13:20 Breathing Homatropine AdvReac Insomnia Verified 04/11/18 13:20 [From Homatropaire] hydrocodone AdvReac Insomnia Verified 04/11/18 13:20 Constitutional: Reports: weakness. Denies: fever, chills ENT ED: Denies: congestion Cardiovascular: Reports: chest pain, dyspnea on exertion, edema. Denies: palpitations, orthopnea, syncope Respiratory: Reports: dyspnea. Denies: cough, wheezes, sputum production Gastrointestinal: Denies: abdominal pain, nausea, vomiting Genitourinary: Denies: urgency, dysuria Musculoskeletal: Denies: back pain Integumentary: Denies: rash Neurological: Denies: headache Past Medical History - Past Medical History Medical history: Reports: atrial fibrillation, cancer, COPD, coronary artery disease, diabetes, GERD, hyperlipidemia, hypertension, kidney stones, renal disease, other Surgical history: Reports: angioplasty/stent, appendectomy, cancer surgery, cataract, cholecystectomy, herniorrhaphy, pacemaker Psychiatric history: Reports: anxiety, depression - Social History Smoking Status: Former smoker Smokeless Tobacco Status: No Alcohol use: Reports: none Drug use: Reports: none Physical Exam - General Limitations: no limitations General appearance: alert, in distress (mild respiratory distress) Course - Reevaluation(s) Reevaluation #1: Attestation note I did independently examine and verified the physical examination findings evaluation workup and disposition of this patient. We had independent face-to- face examination and discussion. The patient was seen with the emergency medicine resident Dr. Rolo Hudson I examined this patient and my medical decision-making was reviewed with the Resident Physician/SHIRT FOLDER/PA. I agree with the documented findings, disposition and treatment plan as described except to the extent set forth below. Briefly: 69-year-old male history of CHF and COPD comes in with chest pain and difficulty in breathing. EKG shows no acute ischemic changes screening labs chest x-ray are pending. Admission anticipated. Disposition pending. Time: 12:48 Vital Signs Temperature 97.8 F 04/15/18 11:22 Pulse Rate 80 04/15/18 11:22 Respiratory Rate 16 04/15/18 11:22 Blood Pressure 148/77 04/15/18 11:22 O2 Sat by Pulse Oximetry 93 04/15/18 11:22 Temperature 97.8 F 04/15/18 11:28 Pulse Rate 76 04/15/18 11:28 Respiratory Rate 16 04/15/18 11:28 Blood Pressure 156/88 04/15/18 11:28 O2 Sat by Pulse Oximetry 95 04/15/18 11:35 Oxygen Delivery Oxygen Delivery Nasal Cannula Medical Decision Making - Lab Data Result diagrams: 04/15/18 11:34 04/15/18 11:34 Lab Results 04/15/18 04/15/18 04/15/18 Range/Units 11:34 11:34 11:34 WBC 11.7 H (4.3-11.1) K/mcL RBC 4.96 (4.19-5.50) M/mcL Hgb 12.8 L (12.9-16.9) g/dL Hct 40.9 (37.5-50.1) % MCV 82.5 L (83.0-100.0) fL MCH 25.8 L (28.0-33.3) pg MCHC 31.3 L (31.6-35.5) g/dL RDW 21.0 H (11.5-14.5) % Plt Count 178 (140-400) K/mcL MPV 9.5 (9.4-12.4) fL Immature Gran % 0.4 (0-4) % Seg Neutrophils % 82.5 % Lymphocytes % 8.6 % Monocytes % 6.5 % Eosinophils % 1.5 % Basophils % 0.5 % Neutrophils # 9.6 H (1.6-8.9) K/mcL Lymphocytes # 1.0 (0.6-4.6) K/mcL Monocytes # 0.8 (0.0-1.3) K/mcL Eosinophils # 0.2 (0.0-0.6) K/mcL Basophils # 0.1 (0.0-0.2) K/mcL PT 12.1 (9.4-12.1) Seconds INR 1.1 APTT 33.7 (26.0-36.0) Seconds Sodium (136-145) mEq/L Potassium (3.5-5.1) mEq/L Chloride (98-107) mEq/L Carbon Dioxide (23-29) mEq/L BUN (8-23) mg/dL Creatinine (0.70-1.30) mg/dL Est GFR ( Amer) (> 60) Est GFR (Non-Af Amer) (> 60) BUN/Creatinine Ratio (6-26) Glucose (70-105) mg/dL Calculated Osmolality (280-300) Calcium (8.6-10.3) mg/dL Troponin I (< 0.04) ng/mL B-Natriuretic Peptide 434 H (Less than 100) pg/mL 04/15/18 Range/Units 11:34 WBC (4.3-11.1) K/mcL RBC (4.19-5.50) M/mcL Hgb (12.9-16.9) g/dL Hct (37.5-50.1) % MCV (83.0-100.0) fL MCH (28.0-33.3) pg MCHC (31.6-35.5) g/dL RDW (11.5-14.5) % Plt Count (140-400) K/mcL MPV (9.4-12.4) fL Immature Gran % (0-4) % Seg Neutrophils % % Lymphocytes % % Monocytes % % Eosinophils % % Basophils % % Neutrophils # (1.6-8.9) K/mcL Lymphocytes # (0.6-4.6) K/mcL Monocytes # (0.0-1.3) K/mcL Eosinophils # (0.0-0.6) K/mcL Basophils # (0.0-0.2) K/mcL PT (9.4-12.1) Seconds INR APTT (26.0-36.0) Seconds Sodium 140 (136-145) mEq/L Potassium 3.9 (3.5-5.1) mEq/L Chloride 105 (98-107) mEq/L Carbon Dioxide 26 (23-29) mEq/L BUN 24 H (8-23) mg/dL Creatinine 1.13 (0.70-1.30) mg/dL Est GFR ( Amer) > 60 (> 60) Est GFR (Non-Af Amer) > 60 (> 60) BUN/Creatinine Ratio 21 (6-26) Glucose 152 H (70-105) mg/dL Calculated Osmolality 297 (280-300) Calcium 9.0 (8.6-10.3) mg/dL Troponin I 0.04 H* (< 0.04) ng/mL B-Natriuretic Peptide (Less than 100) pg/mL
[2018-04-15] MEDS ORDERED: Naloxone 0.4 MG/ML INJ IVP PRN (13:52)
[2018-04-15] MEDS ORDERED: Acetaminophen 325 MG TABLET PO PRN (13:52)
[2018-04-15] MEDS ORDERED: Ondansetron 4 MG/2 ML VIAL IVP PRN (13:52)
[2018-04-15] MEDS ORDERED: *HR* Promethazine 25 MG/ML VIAL IVP PRN (13:52)
--- NOTE | 2018-04-15 14:36 | Internal Med History&Physical ---
Date of Encounter: 04/15/18 Time of Encounter: 14:20 Internal Medicine - H&P: HPI Chief complaint: Shortness of breath Admitted From: Emergency Dept Plans for Post Hospital Care: Home History of present illness: Mr. Vizcarra is a 77 year old male with a known past medical history of paroxysmal atrial fibrillation with AV node ablation and pacemaker, CAD, diabetes mellitus 2, hypertension, COPD, chronic 2 L oxygen dependent at bedtime, GERD, hyperlipidemia and diastolic congestive heart failure patient who presented to emergency room complaining about has been having worsening shortness of breath, paroxysmal nocturnal dyspnea and orthopnea since yesterday. He also complained about left chest wall, sub sternal chest pain and more like tightness associated with shortness of breath. He also mentioned lately his been feeling more weak and lethargic. He does have chronic iron deficiency anemia with unclear etiology for which patient has been getting frequent IV iron infusions had last infusion on Wednesday. His chest x-ray and emergency room showed mild pulmonary edema/vascular congestion. Patient was given Lasix x one dose and now he feels little better. Past Med Surg Social Fam HX - Past Medical History Medical history: atrial fibrillation, cancer, COPD, coronary artery disease, diabetes, GERD, hyperlipidemia, hypertension, kidney stones, renal disease, other Additional medical history: pacemaker, melanoma, cataracts, anemia, kidney stones, cardiac stents x 8, CHF, irreg HR Psychiatric history: anxiety, depression - Past Surgical History Surgical History: angioplasty/stent, appendectomy, cancer surgery, cataract, cholecystectomy, herniorrhaphy, pacemaker Additional surgical history: 8 stents - Social History Smoking Status: Former smoker Smokeless Tobacco Status: No Alcohol use: none Drug use: none - Family History Mother Family Member Ethnicity: Non- Living Status: Hx Family Cardiac Disorders: Yes (HD) Brother Family Member Ethnicity: Non- Living Status: Hx Family Cardiac Disorders: Yes Hx Family Cancer: Yes (Leukemia) Sister Family Member Ethnicity: Non- Living Status: Hx Family Cardiac Disorders: Yes (HD) Hx Family Cancer: Yes Father Family Member Ethnicity: Non- Living Status: Hx Family Cardiac Disorders: Yes (HTN, stroke) Hx Family Respiratory Disorders: No Hx Family Cancer: No Hx Family GI Disorders: No Hx Family Endocrine Disorder: Yes (DM) Hx Family Neuromuscular Disorders: No Hx Family Neurologic Disorders: No Hx Family HEENT Disorders: No Hx Family Autoimmune Disorders: No Internal Medicine - H&P: Meds Albuterol Sulfate [Albuterol Inhaler] 1 puff IH Q4H PRN 08/21/15 [History] Atorvastatin Calcium [Lipitor] 20 mg PO 1700 08/21/15 [History] Bupropion HCl [Wellbutrin Xl] 300 mg PO DAILY 08/21/15 [History] Fluticasone/Salmeterol [Advair 250-50 Diskus] 1 puff IH BID 08/21/15 [History] Insulin Glargine,Hum.rec.anlog [Lantus Solostar] 60 unit SQ HS 08/21/15 [History ] Folic Acid 1 mg PO DAILY 12/18/15 [History] Insulin LISPRO [Humalog] 12 - 13 unit SQ TIDWM 06/19/16 [History] Clopidogrel [Plavix] 75 mg PO DAILY #30 tablet 06/20/16 [Rx] Potassium Chloride 10 meq PO DAILY #30 tab.er.prt 11/03/16 [Rx] [place]-3/Dha/Epa/Fish Oil [Fish Oil 1,000 mg Softgel] 1 cap PO TID 12/04/16 [ History] Oxygen 2 l NS HS 12/04/16 [History] Furosemide [Lasix] 20 mg PO DAILY 04/16/17 [History] Magnesium Oxide [Magnesium] 400 mg PO BID 04/16/17 [History] Metoprolol [Lopressor] 25 mg PO BID #60 tablet 05/12/17 [Rx] Docusate Sodium [Dok] 100 mg PO DAILY 06/22/17 [History] Ascorbic Acid [Vitamin C] 500 mg PO HS #30 tablet 07/02/17 [Rx] Ferrous Gluconate 324 mg PO BID 08/13/17 [History] Aspirin [Adult Aspirin Regimen] 81 mg PO DAILY 01/06/18 [History] Loratadine [Allergy Relief] 10 mg PO DAILY 04/15/18 [History] Pantoprazole Sodium 40 mg PO DAILY 04/15/18 [History] Sertraline [Zoloft] 200 mg PO DAILY 04/15/18 [History] Tiotropium [Spiriva] 18 mcg IH DAILY 04/15/18 [History] 3 Allergy/AdvReac Type Severity Reaction Status Date / Time codeine Allergy Difficulty Verified 04/11/18 13:20 Breathing Homatropine AdvReac Insomnia Verified 04/11/18 13:20 [From Homatropaire] hydrocodone AdvReac Insomnia Verified 04/11/18 13:20 All Systems PM: A 10-system review of systems was performed and is negative for pertinent findings except as documented above in the HPI. Review of systems: All the systems are reviewed everything is benign except the systems and symptoms I mentioned in the history of present illness - Constitutional Vitals: Temp Pulse Resp BP Pulse Ox 97.8 F 69 18 134/73 93 04/15/18 11:28 04/15/18 13:06 04/15/18 13:06 04/15/18 13:06 04/15/18 13:06 General appearance: Present: mild distress, A&O X 3, answers questions appropriately - Head Head exam: Present: atraumatic, normal inspection - Neck Neck exam general surgery: Present: supple - Respiratory Respiratory exam: Present: decreased breath sounds, rales, respiratory distress (Mild), wheezes (Moderate). Absent: rhonchi - Cardiovascular Cardiovascular exam: Present: +S1, +S2. Absent: tachycardia - GI/Abdominal GI/Abdominal exam: Present: normal bowel sounds, soft. Absent: rebound, rigid, tenderness - Extremities Exam Extremities exam: Absent: calf tenderness, pedal edema, tenderness - Back Exam Back exam: Absent: CVA tenderness (L), CVA tenderness (R) - Neurological Exam Neurological exam: Present: alert, oriented X3 - Psychiatric Psychiatric exam: Present: normal affect, normal mood - Skin Skin exam: Absent: rash Internal Med - H&P Results - Labs CBC & Chem 7: 04/15/18 11:34 04/15/18 11:34 - Assessment and plan (1) Acute diastolic CHF (congestive heart failure), NYHA class 3 Current Visit: Yes Status: Acute Assessment and plan: Admit the patient into Tele placed him on the gambling monitor check serial troponin reviewed his chest x-ray showed mild pulmonary edema/vascular congestion due to CHF exacerbation started him on IV Lasix 40 b.i.d. strict I & O's daily weights reviewed his Echo from 12/26 showed preserved LVEF @ 55 to 60%, moderate pulmonary hypertension, diastolic dysfunction no need to repeat another echo resumed home medications ASA, Plavix, statin and beta camilo (2) Troponin level elevated Current Visit: No Status: Resolved Assessment and plan: Slightly elevated at 0.04 due to demand ischemia continue trend on troponin for now (3) COPD with exacerbation Current Visit: No Status: Acute Assessment and plan: He does have moderate wheezing he would get benefit with a short course of low- dose steroids so started him on Solu-Medrol 40 IV b.i.d. continue nebulizers and inhaler steroids of his home regimen (4) CAD (coronary artery disease), [place] coronary artery Current Visit: Yes Status: Chronic Assessment and plan: Resumed all home medications Qualifiers: [place] vs. transplanted heart: [place] heart Associated angina: without angina Qualified Code(s): I25.10 - Atherosclerotic heart disease of [place] coronary artery without angina pectoris (5) Chronic respiratory failure with hypoxia Current Visit: Yes Status: Chronic Assessment and plan: Does use oxygen at bedtime (6) Fatigue Current Visit: No Status: Acute Assessment and plan: Due to his chronic iron deficiency and CHF exacerbation Qualifiers: Fatigue type: other Qualified Code(s): R53.83 - Other fatigue (7) Diabetes mellitus Current Visit: No Status: Chronic Assessment and plan: On sliding scale Qualifiers: Diabetes mellitus type: type 2 Diabetes mellitus mcfp insulin use: with mcfp use Diabetes mellitus complication status: with kidney complications Diabetes mellitus complication detail: with chronic kidney disease Chronic kidney disease stage: stage 2 (mild) Qualified Code(s): E11.22 - Type 2 diabetes mellitus with diabetic chronic kidney disease; N18.2 - Chronic kidney disease, stage 2 (mild); N18.2 - Chronic kidney disease, stage 2 (mild); Z79.4 - long-term (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 insulin; Z79.4 - long-term (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 insulin; Z79.4 - long-term (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 insulin; Z79.4 - long-term ( 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 insulin (8) HLD (hyperlipidemia) Current Visit: No Status: Chronic Assessment and plan: On statin Qualifiers: Hyperlipidemia type: pure hypercholesterolemia Qualified Code(s): E78.00 - Pure hypercholesterolemia, unspecified; E78.0 - Pure hypercholesterolemia (9) Iron deficiency anemia Current Visit: No Status: Chronic Assessment and plan: Follow-up with the heme/ onc as an out pt Qualifiers: Iron deficiency anemia type: unspecified iron deficiency Qualified Code(s) : D50.9 - Iron deficiency anemia, unspecified - Time Spent With Patient Total time spent is greater than 50% in coordination of care (as documented) at patient's floor/unit and/or counseling patient:
[2018-04-15] MEDS ORDERED: D5% in Water 1,000 ML IVC PRN (14:53)
[2018-04-15] MEDS ORDERED: Dextrose Gel 15 GM/37.5 ML TUBE PO PRN ×2 (14:53)
[2018-04-15] MEDS ORDERED: *HR* Dextrose 50 % in Water (Syg) 50 ML SYRINGE IVP PRN (14:53)
[2018-04-15] MEDS ORDERED: Ipratropium/Albuterol Neb 3 ML IH PRN (14:53)
[2018-04-15] MEDS: (Omega-3/Dha/Epa/Fish Oil [Fish Oil 1,000 Mg Softgel]) PO SCH ×2 (15:07→22:19)
[2018-04-15] MEDS: Furosemide 40 MG/4 ML VIAL IVP SCH (17:20)
[2018-04-15] MEDS: MethylPREDNISolone 40 MG/ML VIAL IVP SCH (17:20)
[2018-04-15] MEDS: Insulin LISPRO 300 UNITS/3 ML VIAL SQ SCH ×2 (17:21→21:36)
--- NOTE | 2018-04-15 18:10 | Electrocardiograph Report ---
[place] [id number] Test Date: 2018-04-15 Pat Name: Darren Vizcarra Department: 104 Room: 3A45 Gender: M [employer] Stewardess: KEVIN : 1940 Requested By: Christofer Frias Order Number: [id number] Reading MD: Peter Salvador Measurements Intervals [place] Rate: 86 P: 131 CA: 148 QRS: -66 QRSD: 204 T: 111 QT: 455 QTc: 498 Interpretive Statements ELECTRONIC ATRIAL PACEMAKER ELECTRONIC VENTRICULAR PACEMAKER Electronically Signed On 04-15-2018 18:08:52 EDT by Peter Salvador
[2018-04-15] MEDS: Budesonide/Formoterol 80/4.5 MDI IH SCH (19:33)
[2018-04-15] MEDS: Magnesium Oxide 400 MG TABLET PO SCH (21:35)
[2018-04-15] MEDS: Ascorbic Acid 500 MG TABLET PO SCH (21:36)
[2018-04-15] MEDS: Insulin DETEMIR 100 UNIT/ML X5UNITS SQ SCH (21:36)
[2018-04-16] MEDS: *HR* Enoxaparin 40 MG/0.4 ML SYRINGE SQ SCH (06:08)
[2018-04-16] MEDS: MethylPREDNISolone 40 MG/ML VIAL IVP SCH ×2 (06:08→17:11)
[2018-04-16 06:46] LABS: Basophils % 0.3 %; Eosinophils % 0.1 %; Hematocrit 41.7 % (37.5-50.1); Hemoglobin 13.1 g/dL (12.9-16.9); Immature Granulocytes % 0.6 % (0-4); Lymphocytes # 0.7 K/mcL (0.6-4.6); Lymphocytes % 8.1 %; Mean Corpuscular HGB Conc 31.4 g/dL (31.6-35.5); Mean Corpuscular Hemoglobin 26.2 pg (28.0-33.3); Mean Corpuscular Volume 83.4 fL (83.0-100.0); Mean Platelet Volume 9.7 fL (9.4-12.4); Monocytes # 0.4 K/mcL (0.0-1.3); Monocytes % 4.8 %; Neutrophils # 7.8 K/mcL (1.6-8.9); Platelet Count 179 K/mcL (140-400); Red Cell Distribution Width 20.5 % (11.5-14.5); Segmented Neutrophils % 86.1 %
[2018-04-16 07:09] LABS: BUN/Creatinine Ratio 22 (6-26); Blood Urea Nitrogen 23 mg/dL (8-23); Calcium 9.1 mg/dL (8.6-10.3); Carbon Dioxide 29 mEq/L (23-29); Chloride 100 mEq/L (98-107); Chol/HDL Ratio 3.1 (0-4.9); Cholesterol 110 mg/dL (< 200); Glucose 288 mg/dL (70-105); HDL Cholesterol 35 mg/dL (40-59); LDL Cholesterol,Calculated 46 mg/dL (0-99); Magnesium 2.2 mg/dL (1.6-2.6); Osmolality,Calculated 298 (280-300); Potassium 4.2 mEq/L (3.5-5.1); Sodium 137 mEq/L (136-145); Triglycerides 143 mg/dL (< 150); eGFR For African Americans > 60 (> 60); eGFR For Non-African Americans > 60 (> 60)
[2018-04-16] MEDS: BuPROPion XL (24 HR) 150 MG TABLET PO SCH (08:46)
[2018-04-16] MEDS: Folic Acid 1 MG TABLET PO SCH (08:46)
[2018-04-16] MEDS: Furosemide 40 MG/4 ML VIAL IVP SCH ×2 (08:46→17:11)
[2018-04-16] MEDS: Magnesium Oxide 400 MG TABLET PO SCH ×2 (08:46→20:40)
[2018-04-16] MEDS: Aspirin Enteric Coated 81 MG Tablet PO SCH (08:46)
[2018-04-16] MEDS: (Omega-3/Dha/Epa/Fish Oil [Fish Oil 1,000 Mg Softgel]) PO SCH ×3 (08:47→20:40)
[2018-04-16] MEDS: Insulin LISPRO 300 UNITS/3 ML VIAL SQ SCH ×4 (08:47→20:41)
[2018-04-16] MEDS: Budesonide/Formoterol 80/4.5 MDI IH SCH ×2 (09:13→22:47)
[2018-04-16] MEDS: Tiotropium 18 MCG inhalation IH SCH (09:14)
--- NOTE | 2018-04-16 17:51 | Internal Med Progress Note ---
Date of Encounter: 04/16/18 Time of Encounter: 11:00 - Assessment and plan (1) Acute diastolic CHF (congestive heart failure), NYHA class 3 Current Visit: Yes Status: Acute Assessment and plan: Patient still with shortness of breath on supplemental oxygenation Will continue IV diuresis (2) COPD with exacerbation Current Visit: No Status: Acute Assessment and plan: Patient now without wheezing on exam Will de-escalate Solu-Medrol to by mouth prednisone continue nebulizers and inhaler steroids of his home regimen (3) Troponin level elevated Current Visit: No Status: Resolved Assessment and plan: Suspect secondary to demand ischemia (4) Chronic respiratory failure with hypoxia Current Visit: Yes Status: Chronic Assessment and plan: Patient only uses supplemental oxygen daily at bedtime but now requiring it continuously Suspect secondary to acute on chronic heart failure as above Continue to monitor (5) CAD (coronary artery disease), [place] coronary artery Current Visit: Yes Status: Chronic Assessment and plan: Continue home medications Qualifiers: [place] vs. transplanted heart: [place] heart Associated angina: without angina Qualified Code(s): I25.10 - Atherosclerotic heart disease of [place] coronary artery without angina pectoris (6) HLD (hyperlipidemia) Current Visit: No Status: Chronic Assessment and plan: Continue statin Qualifiers: Hyperlipidemia type: pure hypercholesterolemia Qualified Code(s): E78.00 - Pure hypercholesterolemia, unspecified; E78.0 - Pure hypercholesterolemia (7) Iron deficiency anemia Current Visit: No Status: Chronic Assessment and plan: Follow-up with the heme/ onc as an out pt Qualifiers: Iron deficiency anemia type: unspecified iron deficiency Qualified Code(s) : D50.9 - Iron deficiency anemia, unspecified (8) Diabetes mellitus Current Visit: No Status: Chronic Assessment and plan: Continue sliding scale Qualifiers: Diabetes mellitus type: type 2 Diabetes mellitus care home insulin use: with care home use Diabetes mellitus complication status: with kidney complications Diabetes mellitus complication detail: with chronic kidney disease Chronic kidney disease stage: stage 2 (mild) Qualified Code(s): E11.22 - Type 2 diabetes mellitus with diabetic chronic kidney disease; N18.2 - Chronic kidney disease, stage 2 (mild); N18.2 - Chronic kidney disease, stage 2 (mild); Z79.4 - camp nurse (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 insulin; Z79.4 - camp nurse (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 insulin; Z79.4 - prison (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 insulin; Z79.4 - camp nurse ( 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 insulin (9) DVT prophylaxis Current Visit: No Status: Acute Assessment and plan: Subcutaneous Lovenox - Time Spent With Patient Total time spent is greater than 50% in coordination of care (as documented) at patient's floor/unit and/or counseling patient: - Subjective Interval history: Patient reports of shortness of breath secondary to acute on chronic diastolic heart failure Patient also reports of productive cough secondary to COPD exacerbation - Constitutional Vitals: Temp Pulse Resp BP Pulse Ox 97.7 F 64 16 118/58 93 04/16/18 15:00 04/16/18 15:00 04/16/18 15:00 04/16/18 15:00 04/16/18 15:00 General appearance: Present: mild distress, A&O X 3, no acute distress, answers questions appropriately - Respiratory Respiratory exam: Present: CTAB. Absent: accessory muscle use, rales, rhonchi, wheezes - Cardiovascular Cardiovascular exam: Present: RRR, +S1, +S2. Absent: diastolic murmur, gallop, rubs, systolic murmur - Expanded Lower Extremities Exam Lower Leg exam: Present: swelling (Bilateral trace pitting edema) Internal Medicine: Result - Labs CBC & Chem 7: 04/16/18 06:19 04/16/18 06:19 Labs: Short CBC 04/16/18 Range/Units 06:19 WBC 9.0 (4.3-11.1) K/mcL Hgb 13.1 (12.9-16.9) g/dL Hct 41.7 (37.5-50.1) % Plt Count 179 (140-400) K/mcL Neutrophils # 7.8 (1.6-8.9) K/mcL BMP 04/16/18 06:19 Sodium 137 Potassium 4.2 Chloride 100 Carbon Dioxide 29 BUN 23 Creatinine 1.06 Glucose 288 H Calcium 9.1 Cardiac Enzymes 04/15/18 04/15/18 Range/Units 17:11 22:35 Troponin I 0.05 H* 0.04 H* (< 0.04) ng/mL - ABG Interpretation ABG results: PT/INR, D-dimer PT 12.1 Seconds (9.4-12.1) 04/15/18 11:34 Consult Discharge Plan - Plan Referrals: Jose Seymour DO [Primary Care Provider] -
[2018-04-16] MEDS: Ascorbic Acid 500 MG TABLET PO SCH (20:40)
[2018-04-16] MEDS: Insulin DETEMIR 100 UNIT/ML X5UNITS SQ SCH (20:41)
[2018-04-17] MEDS: MethylPREDNISolone 40 MG/ML VIAL IVP SCH ×2 (05:31→17:08)
[2018-04-17] MEDS: *HR* Enoxaparin 40 MG/0.4 ML SYRINGE SQ SCH (05:31)
[2018-04-17] MEDS: Folic Acid 1 MG TABLET PO SCH (08:52)
[2018-04-17] MEDS: Aspirin Enteric Coated 81 MG Tablet PO SCH (08:52)
[2018-04-17] MEDS: BuPROPion XL (24 HR) 150 MG TABLET PO SCH (08:52)
[2018-04-17] MEDS: Magnesium Oxide 400 MG TABLET PO SCH ×2 (08:52→20:50)
[2018-04-17] MEDS: (Omega-3/Dha/Epa/Fish Oil [Fish Oil 1,000 Mg Softgel]) PO SCH ×3 (08:53→20:50)
[2018-04-17] MEDS: Furosemide 40 MG/4 ML VIAL IVP SCH ×2 (08:53→17:08)
[2018-04-17] MEDS: Insulin LISPRO 300 UNITS/3 ML VIAL SQ SCH ×4 (08:55→20:49)
[2018-04-17] MEDS: Tiotropium 18 MCG inhalation IH SCH (09:12)
[2018-04-17] MEDS: Budesonide/Formoterol 80/4.5 MDI IH SCH ×2 (09:12→21:04)
[2018-04-17 09:46] LABS: Basophils % 0.2 %; Eosinophils % 0.1 %; Hemoglobin 13.3 g/dL (12.9-16.9); Immature Granulocytes % 0.4 % (0-4); Lymphocytes # 0.6 K/mcL (0.6-4.6); Lymphocytes % 4.9 %; Mean Corpuscular HGB Conc 31.7 g/dL (31.6-35.5); Mean Corpuscular Hemoglobin 26.1 pg (28.0-33.3); Mean Corpuscular Volume 82.4 fL (83.0-100.0); Mean Platelet Volume 9.8 fL (9.4-12.4); Monocytes # 0.2 K/mcL (0.0-1.3); Monocytes % 1.5 %; Neutrophils # 12.1 K/mcL (1.6-8.9); Platelet Count 199 K/mcL (140-400); Red Cell Distribution Width 20.8 % (11.5-14.5); Segmented Neutrophils % 92.9 %
[2018-04-17 10:10] LABS: BUN/Creatinine Ratio 26 (6-26); Blood Urea Nitrogen 30 mg/dL (8-23); Carbon Dioxide 30 mEq/L (23-29); Chloride 97 mEq/L (98-107); Glucose 374 mg/dL (70-105); Osmolality,Calculated 299 (280-300); Potassium 4.5 mEq/L (3.5-5.1); Sodium 134 mEq/L (136-145); eGFR For African Americans > 60 (> 60); eGFR For Non-African Americans > 60 (> 60)
--- NOTE | 2018-04-17 17:48 | Internal Med Progress Note ---
Date of Encounter: 04/17/18 Time of Encounter: 11:00 - Assessment and plan (1) Acute diastolic CHF (congestive heart failure), NYHA class 3 Current Visit: Yes Status: Acute Assessment and plan: Patient reports of improvement in shortness of breath and now requiring less supplemental oxygenation Will continue an additional day of IV diuresis (2) COPD with exacerbation Current Visit: No Status: Acute Assessment and plan: Patient without wheezing on exam Will de-escalate Solu-Medrol to by mouth prednisone continue nebulizers and inhaler steroids of his home regimen (3) Troponin level elevated Current Visit: No Status: Resolved Assessment and plan: Suspect secondary to demand ischemia (4) Chronic respiratory failure with hypoxia Current Visit: Yes Status: Chronic Assessment and plan: Patient only uses supplemental oxygen daily at bedtime but now requiring it continuously Suspect secondary to acute on chronic heart failure as above Continue to monitor (5) CAD (coronary artery disease), [place] coronary artery Current Visit: Yes Status: Chronic Assessment and plan: Continue home medications Qualifiers: [place] vs. transplanted heart: [place] heart Associated angina: without angina Qualified Code(s): I25.10 - Atherosclerotic heart disease of [place] coronary artery without angina pectoris (6) HLD (hyperlipidemia) Current Visit: No Status: Chronic Assessment and plan: Continue statin Qualifiers: Hyperlipidemia type: pure hypercholesterolemia Qualified Code(s): E78.00 - Pure hypercholesterolemia, unspecified; E78.0 - Pure hypercholesterolemia (7) Iron deficiency anemia Current Visit: No Status: Chronic Assessment and plan: Follow-up with the heme/ onc as an out pt Qualifiers: Iron deficiency anemia type: unspecified iron deficiency Qualified Code(s) : D50.9 - Iron deficiency anemia, unspecified (8) Diabetes mellitus Current Visit: No Status: Chronic Assessment and plan: Continue sliding scale Qualifiers: Diabetes mellitus type: type 2 Diabetes mellitus terminal make up operator insulin use: with terminal make up operator use Diabetes mellitus complication status: with kidney complications Diabetes mellitus complication detail: with chronic kidney disease Chronic kidney disease stage: stage 2 (mild) Qualified Code(s): E11.22 - Type 2 diabetes mellitus with diabetic chronic kidney disease; N18.2 - Chronic kidney disease, stage 2 (mild); N18.2 - Chronic kidney disease, stage 2 (mild); Z79.4 - penitentiary (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 insulin; 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; 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; Z79.4 - penitentiary ( 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 insulin (9) DVT prophylaxis Current Visit: No Status: Acute Assessment and plan: Subcutaneous Lovenox - Time Spent With Patient Total time spent is greater than 50% in coordination of care (as documented) at patient's floor/unit and/or counseling patient: - Subjective Interval history: Patient reports of improvement in shortness of breath secondary to acute on chronic diastolic heart failure after starting IV diuresis Patient also continues to report of productive cough secondary to COPD exacerbation - Constitutional Vitals: Temp Pulse Resp BP Pulse Ox 98.7 F 61 14 112/65 93 04/17/18 15:57 04/17/18 15:57 04/17/18 15:57 04/17/18 15:57 04/17/18 15:57 General appearance: Present: mild distress, A&O X 3, no acute distress, answers questions appropriately - Respiratory Respiratory exam: Present: CTAB. Absent: accessory muscle use, rales, rhonchi, wheezes - Cardiovascular Cardiovascular exam: Present: RRR, +S1, +S2. Absent: diastolic murmur, gallop, rubs, systolic murmur - Extremities Exam Extremities exam: Absent: pedal edema Internal Medicine: Result - Labs CBC & Chem 7: 04/17/18 09:33 04/17/18 09:33 Labs: Short CBC 04/17/18 Range/Units 09:33 WBC 13.0 H (4.3-11.1) K/mcL Hgb 13.3 (12.9-16.9) g/dL Hct 42.0 (37.5-50.1) % Plt Count 199 (140-400) K/mcL Neutrophils # 12.1 H (1.6-8.9) K/mcL BMP 04/17/18 09:33 Sodium 134 L Potassium 4.5 Chloride 97 L Carbon Dioxide 30 H BUN 30 H Creatinine 1.14 Glucose 374 H Calcium 9.0 - ABG Interpretation ABG results: PT/INR, D-dimer PT 12.1 Seconds (9.4-12.1) 04/15/18 11:34 Consult Discharge Plan - Plan Referrals: Jose Seymour DO [Primary Care Provider] -
[2018-04-17] MEDS: Insulin DETEMIR 100 UNIT/ML X5UNITS SQ SCH (20:50)
[2018-04-17] MEDS: Ascorbic Acid 500 MG TABLET PO SCH (20:50)
[2018-04-18] MEDS: *HR* Enoxaparin 40 MG/0.4 ML SYRINGE SQ SCH (05:22)
[2018-04-18] MEDS: Budesonide/Formoterol 80/4.5 MDI IH SCH (07:54)
[2018-04-18] MEDS: Tiotropium 18 MCG inhalation IH SCH (07:54)
[2018-04-18] MEDS: Aspirin Enteric Coated 81 MG Tablet PO SCH (08:30)
[2018-04-18] MEDS: Magnesium Oxide 400 MG TABLET PO SCH (08:30)
[2018-04-18] MEDS: BuPROPion XL (24 HR) 150 MG TABLET PO SCH (08:30)
[2018-04-18] MEDS: Folic Acid 1 MG TABLET PO SCH (08:30)
[2018-04-18] MEDS: Furosemide 40 MG/4 ML VIAL IVP SCH (08:30)
[2018-04-18] MEDS: Insulin LISPRO 300 UNITS/3 ML VIAL SQ SCH ×2 (08:31→12:48)
[2018-04-18] MEDS: (Omega-3/Dha/Epa/Fish Oil [Fish Oil 1,000 Mg Softgel]) PO SCH (08:37)
[2018-04-18] MEDS ORDERED: predniSONE 20 MG TABLET PO SCH (09:00)
[2018-04-18 09:53] LABS: Basophils % 0.3 %; Eosinophils # 0.1 K/mcL (0.0-0.6); Eosinophils % 0.5 %; Hematocrit 44.1 % (37.5-50.1); Immature Granulocytes % 0.5 % (0-4); Lymphocytes # 1.6 K/mcL (0.6-4.6); Lymphocytes % 10.3 %; Mean Corpuscular HGB Conc 31.7 g/dL (31.6-35.5); Mean Corpuscular Hemoglobin 26.2 pg (28.0-33.3); Mean Corpuscular Volume 82.6 fL (83.0-100.0); Mean Platelet Volume 9.8 fL (9.4-12.4); Monocytes # 0.8 K/mcL (0.0-1.3); Monocytes % 5.3 %; Neutrophils # 12.8 K/mcL (1.6-8.9); Platelet Count 209 K/mcL (140-400); Red Blood Count 5.34 M/mcL (4.19-5.50); Red Cell Distribution Width 20.2 % (11.5-14.5); Segmented Neutrophils % 83.1 %
[2018-04-18 10:23] LABS: BUN/Creatinine Ratio 28 (6-26); Blood Urea Nitrogen 33 mg/dL (8-23); Carbon Dioxide 30 mEq/L (23-29); Chloride 99 mEq/L (98-107); Glucose 282 mg/dL (70-105); Osmolality,Calculated 301 (280-300); Potassium 4.1 mEq/L (3.5-5.1); Sodium 137 mEq/L (136-145); eGFR For African Americans > 60 (> 60); eGFR For Non-African Americans 59 (> 60)
[2018-04-18 10:51] VITALS: BP 123/70
--- NOTE | 2018-04-18 11:45 | Discharge Summary ---
- NOTES TO OUTPATIENT PROVIDER Notes to Outpatient Provider: NONE Date of Encounter: 04/18/18 Time of Encounter: 11:00 - Discharge Diagnosis (1) Acute diastolic CHF (congestive heart failure), NYHA class 3 Priority: Primary Status: Acute (2) COPD with exacerbation Priority: Primary Status: Acute (3) Troponin level elevated Priority: Secondary Status: Resolved (4) Chronic respiratory failure with hypoxia Priority: Primary Status: Chronic (5) CAD (coronary artery disease), [place] coronary artery Priority: Secondary Status: Chronic Qualifiers: [place] vs. transplanted heart: [place] heart Associated angina: without angina Qualified Code(s): I25.10 - Atherosclerotic heart disease of [place] coronary artery without angina pectoris (6) HLD (hyperlipidemia) Priority: Secondary Status: Chronic Qualifiers: Hyperlipidemia type: pure hypercholesterolemia Qualified Code(s): E78.00 - Pure hypercholesterolemia, unspecified; E78.0 - Pure hypercholesterolemia (7) Iron deficiency anemia Priority: Secondary Status: Chronic Qualifiers: Iron deficiency anemia type: unspecified iron deficiency Qualified Code(s) : D50.9 - Iron deficiency anemia, unspecified (8) Diabetes mellitus Priority: Secondary Status: Chronic Qualifiers: Diabetes mellitus type: type 2 Diabetes mellitus terminal block assembler insulin use: with skilled nursing use Diabetes mellitus complication status: with kidney complications Diabetes mellitus complication detail: with chronic kidney disease Chronic kidney disease stage: stage 2 (mild) Qualified Code(s): E11.22 - Type 2 diabetes mellitus with diabetic chronic kidney disease; N18.2 - Chronic kidney disease, stage 2 (mild); 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 She reported of a one-day history of orthopnea with shortness of breath and addition to substernal chest pain which he described more like tightness associated with shortness of breath. In the ER patient was found to have acute on chronic diastolic heart failure with vascular congestion present on x-ray and elevated BNP. During patients hospital stay, his shortness of breath resolved with treatment of IV Lasix. She was also treated with IV Solu-Medrol and DuoNebs due to COPD exacerbation. Patient will be discharged to complete a 5 day course of prednisone and to resume his home dose of Lasix. Patient will follow-up with his primary care provider. - Time Spent with Patient Total time spent providing and/or coordinating discharge services: Less than 30 minutes - Discharge Medications Prescriptions: predniSONE [PredniSONE] 40 mg PO DAILY #10 tablet Home Medications: Albuterol Sulfate [Albuterol Inhaler] 1 puff IH Q4H PRN 08/21/15 [History] Atorvastatin Calcium [Lipitor] 20 mg PO 1700 08/21/15 [History] Bupropion HCl [Wellbutrin Xl] 300 mg PO DAILY 08/21/15 [History] Fluticasone/Salmeterol [Advair 250-50 Diskus] 1 puff IH BID 08/21/15 [History] Insulin Glargine,Hum.rec.anlog [Lantus Solostar] 60 unit SQ HS 08/21/15 [History ] Folic Acid 1 mg PO DAILY 12/18/15 [History] Insulin LISPRO [Humalog] 12 - 13 unit SQ TIDWM 06/19/16 [History] Clopidogrel [Plavix] 75 mg PO DAILY #30 tablet 06/20/16 [Rx] Potassium Chloride 10 meq PO DAILY #30 tab.er.prt 11/03/16 [Rx] [place]-3/Dha/Epa/Fish Oil [Fish Oil 1,000 mg Softgel] 1 cap PO TID 12/04/16 [ History] Oxygen 2 l NS HS 12/04/16 [History] Furosemide [Lasix] 20 mg PO DAILY 04/16/17 [History] Magnesium Oxide [Magnesium] 400 mg PO BID 04/16/17 [History] Metoprolol [Lopressor] 25 mg PO BID #60 tablet 05/12/17 [Rx] Docusate Sodium [Dok] 100 mg PO DAILY 06/22/17 [History] Ascorbic Acid [Vitamin C] 500 mg PO HS #30 tablet 07/02/17 [Rx] Ferrous Gluconate 324 mg PO BID 08/13/17 [History] Aspirin [Adult Aspirin Regimen] 81 mg PO DAILY 01/06/18 [History] Loratadine [Allergy Relief] 10 mg PO DAILY 04/15/18 [History] Pantoprazole Sodium 40 mg PO DAILY 04/15/18 [History] Sertraline [Zoloft] 200 mg PO DAILY 04/15/18 [History] Tiotropium [Spiriva] 18 mcg IH DAILY 04/15/18 [History] Docusate [Colace] 100 mg PO BID PRN capsule 04/18/18 [Rx] predniSONE [PredniSONE] 40 mg PO DAILY #10 tablet 04/18/18 [Rx] Allergies/Adverse Reactions: 3 Allergy/AdvReac Type Severity Reaction Status Date / Time codeine Allergy Difficulty Verified 04/11/18 13:20 Breathing Homatropine AdvReac Insomnia Verified 04/11/18 13:20 [From Homatropaire] hydrocodone AdvReac Insomnia Verified 04/11/18 13:20 Date of admission: 04/15/18 13:53 Primary care physician: Jose Seymour DO Consults: 04/18/18 09:51 Consult to Nurse Navigator [CONS] Routine Comment: CHF and COPD education - Constitutional Vitals: Temp Pulse Resp BP Pulse Ox 98.3 F 74 18 123/70 95 04/18/18 10:46 04/18/18 10:46 04/18/18 10:46 04/18/18 10:46 04/18/18 10:46 General appearance: Present: mild distress, A&O X 3, no acute distress, answers questions appropriately - Respiratory Respiratory exam: Present: CTAB. Absent: accessory muscle use, rales, rhonchi, wheezes - Cardiovascular Cardiovascular exam: Present: RRR, +S1, +S2. Absent: diastolic murmur, gallop, rubs, systolic murmur - Patient Status Disposition: Home, Self-Care Condition: Undetermined - Discharge Instructions Follow Up With: Cece Cox, FINE WIRE DRAWER [Advanced Practice Nurse] - 04/22/18 11:00 am
== END 2018-04-18 13:24 | disposition home or self-care (01) | DRG 291 ==
LOC: 3ANU 11:19 → EMEROO 11:19 → SUATTDRO 13:53 → 3ANU 14:24
PROVIDERS: ADMIT Family Medicine; ATTEND Hospitalist

== ENCOUNTER 2018-05-11 05:59 | Inpatient (IN) ==
[2018-05-11] MEDS ORDERED: Ondansetron 4 MG/2 ML VIAL IVP ONE (06:12)
--- NOTE | 2018-05-11 06:23 | Emergency Department Note ---
Disposition Clinical Impression: Hospital-acquired pneumonia Disposition: Admitted As Inpatient Condition: Fair Forms: ED Satisfaction Letter, Work/School Release General Adult HPI - General Chief complaint: ED General Medical Stated complaint: Nausea, spitting up blood Time Seen by Provider: 05/11/18 06:12 Source: patient, family Mode of arrival: private vehicle Limitations: no limitations Nursing Notes Reviewed: Yes Vital Signs Reviewed: Yes - History of Present Illness HPI Narrative: Patient presents from home with his for evaluation of fever, chills, nausea , and cough. Symptoms began abruptly at 2 AM. He had two episodes of coughing up blood-streaked sputum. He does not describe gross hemoptysis. Cough has been productive of thick yellow sputum. He feels a little more short of breath than usual. He denies chest pain, headache, abdominal pain, dizziness, vertigo , syncope. Pt Subjective Complaint: nausea, vomiting, chills Onset (ago): hour(s) (acute onset at 2am) Location: other (No pain) Pain Scale: 0 Improves with: nothing Worsens with: nothing Associated symptoms: Reports: cough, fever/chills, malaise, nausea/vomiting. Denies: confusion, chest pain, headaches, loss of appetite, rash, seizure, shortness of breath, syncope, weakness - Related Data Home Medications Medication Instructions Recorded Confirmed Albuterol Sulfate [Albuterol 1 puff IH Q4H PRN 08/21/15 04/15/18 Inhaler] Atorvastatin Calcium [Lipitor] 20 mg PO 1700 08/21/15 04/15/18 Bupropion HCl [Wellbutrin Xl] 300 mg PO DAILY 08/21/15 04/15/18 Fluticasone/Salmeterol [Advair 1 puff IH BID 08/21/15 04/15/18 250-50 Diskus] Insulin Glargine,Hum.rec.anlog 60 unit SQ HS 08/21/15 04/15/18 [Lantus Solostar] Folic Acid 1 mg PO DAILY 12/18/15 04/15/18 Insulin LISPRO [Humalog] 12 - 13 unit SQ TIDWM 06/19/16 04/15/18 [place]-3/Dha/Epa/Fish Oil [Fish Oil 1 cap PO TID 12/04/16 04/15/18 1,000 mg Softgel] Oxygen 2 l NS HS 12/04/16 04/15/18 Furosemide [Lasix] 20 mg PO DAILY 04/16/17 04/15/18 Magnesium Oxide [Magnesium] 400 mg PO BID 04/16/17 04/15/18 Docusate Sodium [Dok] 100 mg PO DAILY 06/22/17 04/15/18 Ferrous Gluconate 324 mg PO BID 08/13/17 04/15/18 Aspirin [Adult Aspirin Regimen] 81 mg PO DAILY 01/06/18 04/15/18 Loratadine [Allergy Relief] 10 mg PO DAILY 04/15/18 04/15/18 Pantoprazole Sodium 40 mg PO DAILY 04/15/18 04/15/18 Sertraline [Zoloft] 200 mg PO DAILY 04/15/18 04/15/18 Tiotropium [Spiriva] 18 mcg IH DAILY 04/15/18 04/15/18 Previous Rx's Medication Instructions Recorded Clopidogrel [Plavix] 75 mg PO DAILY #30 tablet 06/20/16 Potassium Chloride 10 meq PO DAILY #30 tab.er.prt 11/03/16 Metoprolol [Lopressor] 25 mg PO BID #60 tablet 05/12/17 Ascorbic Acid [Vitamin C] 500 mg PO HS #30 tablet 07/02/17 Docusate [Colace] 100 mg PO BID PRN capsule 04/18/18 predniSONE [PredniSONE] 40 mg PO DAILY #10 tablet 04/18/18 Allergies Allergy/AdvReac Type Severity Reaction Status Date / Time codeine Allergy Difficulty Verified 05/11/18 06:00 Breathing Homatropine AdvReac Insomnia Verified 05/11/18 06:00 [From Homatropaire] hydrocodone AdvReac Insomnia Verified 05/11/18 06:00 All systems ED: reviewed and negative except as stated. Review of Systems: As Per HPI Constitutional: Reports: fever, chills. Denies: weakness, weight change, night sweats ENT ED: Denies: throat pain, congestion, dysphagia Cardiovascular: Reports: dyspnea on exertion, orthopnea. Denies: chest pain, palpitations, edema, syncope Respiratory: Reports: as per HPI, cough, dyspnea, sputum production. Denies: wheezes, stridor Gastrointestinal: Reports: nausea. Denies: abdominal pain, vomiting, diarrhea Musculoskeletal: Denies: back pain, neck pain, joint swelling, arthralgia Integumentary: Denies: rash Neurological: Denies: headache, weakness, numbness, paresthesias, confusion, abnormal gait, vertigo Hematological/Lymphatic: Reports: easy bruising (on plavix). Denies: easy bleeding Past Medical History - Past Medical History Attestation: Yes The following information was validated with the patient. Source: patient Medical history: Reports: atrial fibrillation, cancer, COPD, coronary artery disease, diabetes, GERD, hyperlipidemia, hypertension, kidney stones, other Surgical history: Reports: angioplasty/stent, appendectomy, cancer surgery, cataract, cholecystectomy, herniorrhaphy, pacemaker Psychiatric history: Reports: anxiety, depression - Social History Smoking Status: Former smoker Smokeless Tobacco Status: No Alcohol use: Reports: none Drug use: Reports: none Physical Exam - General Limitations: no limitations General appearance: alert, in no apparent distress - Head Head exam: atraumatic, normocephalic, normal inspection - Eye Eye exam: Present: normal appearance, PERRL. Absent: scleral icterus, conjunctival injection, periorbital swelling - ENT ENT exam: mucous membranes moist, mucous membranes dry - Neck Neck exam: Present: normal inspection, full ROM, trachea midline. Absent: meningismus - Chest Chest inspection: Present: normal inspection - Respiratory Respiratory exam: Present: normal lung sounds bilaterally. Absent: respiratory distress, wheezes, stridor, accessory muscle use, prolonged expiratory phase - Cardiovascular Cardiovascular exam: Present: regular rate, normal rhythm - Abdominal Exam Abdominal exam: Present: soft, Non-Tender. Absent: distention, guarding, rebound - Extremities Exam Extremities exam: Present: normal inspection, normal capillary refill - Back Exam Back exam: Present: normal inspection - Neurological Exam Neurological exam: Present: alert, oriented X3, CN II-XII intact, normal gait - Psychiatric Psychiatric exam: Present: normal affect, normal mood - Skin Skin exam: Present: warm, dry, intact, normal color Course Course Narrative: Patient presents from home with his for acute onset of fever, chills, cough and nausea. He also has dyspnea that is a little worse than usual. His past medical history includes congestive heart failure, coronary artery disease , COPD. He has a pacemaker. He was hospitalized April 15 for COPD and CHF exacerbation. He recovered from that fully and was doing well until 2:00 this morning. Patient denies pain. He specifically denies chest pain. He has had no dizziness, vertigo or syncope. On exam he appears uncomfortable but nontoxic. He is not tachypneic or tachycardic. He is hypertensive. No respiratory distress. Breath sounds are clear. Heart rate and rhythm sound normal. No significant peripheral edema. EKG shows a paced rhythm with normal rate. Chest x-ray shows a right upper lobe infiltrate suspicious for pneumonia. There is also mild edema. He has a leukocytosis of 13.3 with a prevalence of neutrophils. Troponin is 0.04. Lactate is 2.6. The remainder of labs are pending. Antipyretics, Zofran and a small fluid bolus have been ordered. He has a history of congestive heart failure and has mild edema on chest x-ray. For these reasons, a large fluid bolus has not been ordered. Case was discussed with Dr. Rivas. She has had face- to-face time with the patient and agrees with the assessment and plan. Patient will require admission for further evaluation and treatment. Levaquin 750 has been started. Hospitalist has been paged. Patient has been accepted by the hospitalist. He agrees with the antibiotic selection. - Reevaluation(s) Reevaluation #1: Patient is feeling a little bit better. He is able to recline on the bed. Vitals are stable Time: 07:38 Vital Signs Temperature 100.2 F H 05/11/18 06:00 Pulse Rate 86 05/11/18 06:00 Respiratory Rate 20 05/11/18 06:00 Blood Pressure 161/72 05/11/18 06:00 O2 Sat by Pulse Oximetry 92 05/11/18 06:00 Temperature 100.2 F H 05/11/18 06:00 Pulse Rate 72 05/11/18 06:27 Respiratory Rate 20 05/11/18 06:27 Blood Pressure 170/82 05/11/18 06:27 O2 Sat by Pulse Oximetry 95 05/11/18 06:27 Oxygen Delivery Oxygen Delivery Nasal Cannula Medical Decision Making - Lab Data Result diagrams: 05/11/18 06:17 05/11/18 06:17 Lab Results 05/11/18 05/11/18 05/11/18 Range/Units 06:15 06:17 06:17 WBC 13.3 H (4.3-11.1) K/mcL RBC 5.42 (4.19-5.50) M/mcL Hgb 14.7 (12.9-16.9) g/dL Hct 44.2 (37.5-50.1) % MCV 81.5 L (83.0-100.0) fL MCH 27.1 L (28.0-33.3) pg MCHC 33.3 (31.6-35.5) g/dL RDW 17.7 H (11.5-14.5) % Plt Count 175 (140-400) K/mcL MPV 9.4 (9.4-12.4) fL Immature Gran % 0.3 (0-4) % Seg Neutrophils % 86.7 % Lymphocytes % 6.4 % Monocytes % 5.3 % Eosinophils % 1.1 % Basophils % 0.2 % Neutrophils # 11.5 H (1.6-8.9) K/mcL Lymphocytes # 0.9 (0.6-4.6) K/mcL Monocytes # 0.7 (0.0-1.3) K/mcL Eosinophils # 0.1 (0.0-0.6) K/mcL Basophils # 0.0 (0.0-0.2) K/mcL PT 12.2 H (9.4-12.1) Seconds INR 1.1 APTT 30.2 (26.0-36.0) Seconds Sodium (136-145) mEq/L Potassium (3.5-5.1) mEq/L Chloride (98-107) mEq/L Carbon Dioxide (23-29) mEq/L BUN (8-23) mg/dL Creatinine (0.70-1.30) mg/dL Est GFR ( Amer) (> 60) Est GFR (Non-Af Amer) (> 60) BUN/Creatinine Ratio (6-26) Glucose (70-105) mg/dL Calculated Osmolality (280-300) Lactic Acid (0.5-2.2) mmol/L Calcium (8.6-10.3) mg/dL Total Bilirubin (0.3-1.0) mg/dL Direct Bilirubin (0.0-0.2) mg/dL Indirect Bilirubin (0.0-1.2) mg/dL AST (13-39) Units/L ALT (7-52) Units/L Alkaline Phosphatase (34-104) Units/L Troponin I (< 0.04) ng/mL B-Natriuretic Peptide (Less than 100) pg/mL Serum Total Protein (6.4-8.9) g/dL Albumin (3.5-5.7) g/dL Globulin (2.4-3.5) g/dL Albumin/Globulin Ratio (1.1-2.2) Urine Color Yellow (Yellow) Urine Clarity Clear (Clear) Urine pH 6.0 (5.0-8.0) pH Units Ur Specific [place] 1.023 (1.010-1.025) Urine Protein Trace (Neg-Trace) mg/dL Urine Glucose (UA) Normal (Normal) mg/dL Urine Ketones Negative (Negative) mg/dL Urine Blood Negative (Negative) Urine Nitrite Negative (Negative) Urine Bilirubin Negative (Negative) Urine Urobilinogen Normal (Normal) mg/dL Ur Leukocyte Esterase Negative (Negative) Urine Microscopic RBC 3-5 H (0-3) per hpf Urine Microscopic WBC 0-3 (0-3) per hpf Ur Squamous Epith Cells Many H (None-Few) per lpf Urine Bacteria None Seen (None-Few) per hpf Hyaline Casts None Seen (None-Few) per lpf Ur Culture Indicated? NO (NO) 05/11/18 05/11/18 05/11/18 Range/Units 06:17 06:17 06:17 WBC (4.3-11.1) K/mcL RBC (4.19-5.50) M/mcL Hgb (12.9-16.9) g/dL Hct (37.5-50.1) % MCV (83.0-100.0) fL MCH (28.0-33.3) pg MCHC (31.6-35.5) g/dL RDW (11.5-14.5) % Plt Count (140-400) K/mcL MPV (9.4-12.4) fL Immature Gran % (0-4) % Seg Neutrophils % % Lymphocytes % % Monocytes % % Eosinophils % % Basophils % % Neutrophils # (1.6-8.9) K/mcL Lymphocytes # (0.6-4.6) K/mcL Monocytes # (0.0-1.3) K/mcL Eosinophils # (0.0-0.6) K/mcL Basophils # (0.0-0.2) K/mcL PT (9.4-12.1) Seconds INR APTT (26.0-36.0) Seconds Sodium 137 (136-145) mEq/L Potassium 4.3 (3.5-5.1) mEq/L Chloride 104 (98-107) mEq/L Carbon Dioxide 22 L (23-29) mEq/L BUN 22 (8-23) mg/dL Creatinine 0.96 (0.70-1.30) mg/dL Est GFR ( Amer) > 60 (> 60) Est GFR (Non-Af Amer) > 60 (> 60) BUN/Creatinine Ratio 23 (6-26) Glucose 198 H (70-105) mg/dL Calculated Osmolality 293 (280-300) Lactic Acid (0.5-2.2) mmol/L Calcium 9.3 (8.6-10.3) mg/dL Total Bilirubin 0.6 (0.3-1.0) mg/dL Direct Bilirubin 0.1 (0.0-0.2) mg/dL Indirect Bilirubin 0.5 (0.0-1.2) mg/dL AST 13 (13-39) Units/L ALT 18 (7-52) Units/L Alkaline Phosphatase 51 (34-104) Units/L Troponin I 0.04 H* (< 0.04) ng/mL B-Natriuretic Peptide 279 H (Less than 100) pg/mL Serum Total Protein 7.0 (6.4-8.9) g/dL Albumin 4.4 (3.5-5.7) g/dL Globulin 2.6 (2.4-3.5) g/dL Albumin/Globulin Ratio 1.7 (1.1-2.2) Urine Color (Yellow) Urine Clarity (Clear) Urine pH (5.0-8.0) pH Units Ur Specific [place] (1.010-1.025) Urine Protein (Neg-Trace) mg/dL Urine Glucose (UA) (Normal) mg/dL Urine Ketones (Negative) mg/dL Urine Blood (Negative) Urine Nitrite (Negative) Urine Bilirubin (Negative) Urine Urobilinogen (Normal) mg/dL Ur Leukocyte Esterase (Negative) Urine Microscopic RBC (0-3) per hpf Urine Microscopic WBC (0-3) per hpf Ur Squamous Epith Cells (None-Few) per lpf Urine Bacteria (None-Few) per hpf Hyaline Casts (None-Few) per lpf Ur Culture Indicated? (NO) 05/11/18 Range/Units 06:43 WBC (4.3-11.1) K/mcL RBC (4.19-5.50) M/mcL Hgb (12.9-16.9) g/dL Hct (37.5-50.1) % MCV (83.0-100.0) fL MCH (28.0-33.3) pg MCHC (31.6-35.5) g/dL RDW (11.5-14.5) % Plt Count (140-400) K/mcL MPV (9.4-12.4) fL Immature Gran % (0-4) % Seg Neutrophils % % Lymphocytes % % Monocytes % % Eosinophils % % Basophils % % Neutrophils # (1.6-8.9) K/mcL Lymphocytes # (0.6-4.6) K/mcL Monocytes # (0.0-1.3) K/mcL Eosinophils # (0.0-0.6) K/mcL Basophils # (0.0-0.2) K/mcL PT (9.4-12.1) Seconds INR APTT (26.0-36.0) Seconds Sodium (136-145) mEq/L Potassium (3.5-5.1) mEq/L Chloride (98-107) mEq/L Carbon Dioxide (23-29) mEq/L BUN (8-23) mg/dL Creatinine (0.70-1.30) mg/dL Est GFR ( Amer) (> 60) Est GFR (Non-Af Amer) (> 60) BUN/Creatinine Ratio (6-26) Glucose (70-105) mg/dL Calculated Osmolality (280-300) Lactic Acid 2.6 H (0.5-2.2) mmol/L Calcium (8.6-10.3) mg/dL Total Bilirubin (0.3-1.0) mg/dL Direct Bilirubin (0.0-0.2) mg/dL Indirect Bilirubin (0.0-1.2) mg/dL AST (13-39) Units/L ALT (7-52) Units/L Alkaline Phosphatase (34-104) Units/L Troponin I (< 0.04) ng/mL B-Natriuretic Peptide (Less than 100) pg/mL Serum Total Protein (6.4-8.9) g/dL Albumin (3.5-5.7) g/dL Globulin (2.4-3.5) g/dL Albumin/Globulin Ratio (1.1-2.2) Urine Color (Yellow) Urine Clarity (Clear) Urine pH (5.0-8.0) pH Units Ur Specific [place] (1.010-1.025) Urine Protein (Neg-Trace) mg/dL Urine Glucose (UA) (Normal) mg/dL Urine Ketones (Negative) mg/dL Urine Blood (Negative) Urine Nitrite (Negative) Urine Bilirubin (Negative) Urine Urobilinogen (Normal) mg/dL Ur Leukocyte Esterase (Negative) Urine Microscopic RBC (0-3) per hpf Urine Microscopic WBC (0-3) per hpf Ur Squamous Epith Cells (None-Few) per lpf Urine Bacteria (None-Few) per hpf Hyaline Casts (None-Few) per lpf Ur Culture Indicated? (NO)
[2018-05-11 06:31] LABS: Basophils % 0.2 %; Eosinophils # 0.1 K/mcL (0.0-0.6); Eosinophils % 1.1 %; Hematocrit 44.2 % (37.5-50.1); Hemoglobin 14.7 g/dL (12.9-16.9); Immature Granulocytes % 0.3 % (0-4); Lymphocytes # 0.9 K/mcL (0.6-4.6); Lymphocytes % 6.4 %; Mean Corpuscular HGB Conc 33.3 g/dL (31.6-35.5); Mean Corpuscular Hemoglobin 27.1 pg (28.0-33.3); Mean Corpuscular Volume 81.5 fL (83.0-100.0); Mean Platelet Volume 9.4 fL (9.4-12.4); Monocytes # 0.7 K/mcL (0.0-1.3); Monocytes % 5.3 %; Neutrophils # 11.5 K/mcL (1.6-8.9); Platelet Count 175 K/mcL (140-400); Red Blood Count 5.42 M/mcL (4.19-5.50); Red Cell Distribution Width 17.7 % (11.5-14.5); Segmented Neutrophils % 86.7 %
[2018-05-11 06:38] LABS: Bilirubin,Urine Negative (Negative); Blood,Urine Negative (Negative); Clarity,Urine Clear (Clear); Color,Urine Yellow (Yellow); Glucose,Urine (UA) Normal (Normal); Ketones,Urine Negative (Negative); Leukocyte Esterase,Urine Negative (Negative); Nitrite,Urine Negative (Negative); Protein,Urine Trace mg/dL (Neg-Trace); Specific Gravity,Urine 1.023 (1.010-1.025); Urobilinogen,Urine Normal (Normal)
[2018-05-11 06:40] LABS: Bacteria,Urine None Seen per hpf (None-Few); Hyaline Casts,Urine None Seen per lpf (None-Few); Squamous Epithelial Cell,Urine Many per lpf (None-Few); WBC,Urine 0-3 per hpf (0-3)
[2018-05-11 06:41] LABS: INR 1.1; Prothrombin Time 12.2 Seconds (9.4-12.1)
[2018-05-11 06:43] LABS: Activated Partial Thrombo Time 30.2 Seconds (26.0-36.0)
[2018-05-11] MEDS ORDERED: Levofloxacin 750 MG/150 ML 750 MG/150 ML BAG IVPB ONE (06:48)
[2018-05-11 06:50] LABS: Albumin 4.4 g/dL (3.5-5.7); Albumin/Globulin Ratio 1.7 (1.1-2.2); Bilirubin,Direct 0.1 mg/dL (0.0-0.2); Bilirubin,Indirect 0.5 mg/dL (0.0-1.2); Bilirubin,Total 0.6 mg/dL (0.3-1.0); Globulin 2.6 g/dL (2.4-3.5)
[2018-05-11 06:52] LABS: BUN/Creatinine Ratio 23 (6-26); Blood Urea Nitrogen 22 mg/dL (8-23); Calcium 9.3 mg/dL (8.6-10.3); Carbon Dioxide 22 mEq/L (23-29); Chloride 104 mEq/L (98-107); Glucose 198 mg/dL (70-105); Osmolality,Calculated 293 (280-300); Potassium 4.3 mEq/L (3.5-5.1); Sodium 137 mEq/L (136-145); eGFR For African Americans > 60 (> 60); eGFR For Non-African Americans > 60 (> 60)
[2018-05-11 06:59] LABS: Troponin I 0.04 ng/mL (< 0.04)
[2018-05-11] MEDS ORDERED: 0.9 % Sodium Chloride 500 ML IVC ONE (07:17)
--- NOTE | 2018-05-11 07:50 | Emergency Department Note ---
Disposition Clinical Impression: Hospital-acquired pneumonia Disposition: Admitted As Inpatient Condition: Fair General Adult HPI - General Chief complaint: ED General Medical Stated complaint: Nausea, spitting up blood Time Seen by Provider: 05/11/18 06:12 Source: patient, family Mode of arrival: private vehicle Limitations: no limitations - History of Present Illness Location: other (No pain) Pain Scale: 0 Improves with: nothing Worsens with: nothing Associated symptoms: Reports: cough, fever/chills, malaise, nausea/vomiting. Denies: confusion, chest pain, headaches, loss of appetite, rash, seizure, shortness of breath, syncope, weakness - Related Data Home Medications Medication Instructions Recorded Confirmed Albuterol Sulfate [Albuterol 1 puff IH Q4H PRN 08/21/15 04/15/18 Inhaler] Atorvastatin Calcium [Lipitor] 20 mg PO 1700 08/21/15 04/15/18 Bupropion HCl [Wellbutrin Xl] 300 mg PO DAILY 08/21/15 04/15/18 Fluticasone/Salmeterol [Advair 1 puff IH BID 08/21/15 04/15/18 250-50 Diskus] Insulin Glargine,Hum.rec.anlog 60 unit SQ HS 08/21/15 04/15/18 [Lantus Solostar] Folic Acid 1 mg PO DAILY 12/18/15 04/15/18 Insulin LISPRO [Humalog] 12 - 13 unit SQ TIDWM 06/19/16 04/15/18 [place]-3/Dha/Epa/Fish Oil [Fish Oil 1 cap PO TID 12/04/16 04/15/18 1,000 mg Softgel] Oxygen 2 l NS HS 12/04/16 04/15/18 Furosemide [Lasix] 20 mg PO DAILY 04/16/17 04/15/18 Magnesium Oxide [Magnesium] 400 mg PO BID 04/16/17 04/15/18 Docusate Sodium [Dok] 100 mg PO DAILY 06/22/17 04/15/18 Ferrous Gluconate 324 mg PO BID 08/13/17 04/15/18 Aspirin [Adult Aspirin Regimen] 81 mg PO DAILY 01/06/18 04/15/18 Loratadine [Allergy Relief] 10 mg PO DAILY 04/15/18 04/15/18 Pantoprazole Sodium 40 mg PO DAILY 04/15/18 04/15/18 Sertraline [Zoloft] 200 mg PO DAILY 04/15/18 04/15/18 Tiotropium [Spiriva] 18 mcg IH DAILY 04/15/18 04/15/18 Previous Rx's Medication Instructions Recorded Clopidogrel [Plavix] 75 mg PO DAILY #30 tablet 06/20/16 Potassium Chloride 10 meq PO DAILY #30 tab.er.prt 11/03/16 Metoprolol [Lopressor] 25 mg PO BID #60 tablet 05/12/17 Ascorbic Acid [Vitamin C] 500 mg PO HS #30 tablet 07/02/17 Docusate [Colace] 100 mg PO BID PRN capsule 04/18/18 predniSONE [PredniSONE] 40 mg PO DAILY #10 tablet 04/18/18 Allergies Allergy/AdvReac Type Severity Reaction Status Date / Time codeine Allergy Difficulty Verified 05/11/18 06:00 Breathing Homatropine AdvReac Insomnia Verified 05/11/18 06:00 [From Homatropaire] hydrocodone AdvReac Insomnia Verified 05/11/18 06:00 Constitutional: Reports: fever, chills. Denies: weakness, weight change, night sweats ENT ED: Denies: throat pain, congestion, dysphagia Cardiovascular: Reports: dyspnea on exertion, orthopnea. Denies: chest pain, palpitations, edema, syncope Respiratory: Reports: as per HPI, cough, dyspnea, sputum production. Denies: wheezes, stridor Gastrointestinal: Reports: nausea. Denies: abdominal pain, vomiting, diarrhea Musculoskeletal: Denies: back pain, neck pain, joint swelling, arthralgia Integumentary: Denies: rash Neurological: Denies: headache, weakness, numbness, paresthesias, confusion, abnormal gait, vertigo Hematological/Lymphatic: Reports: easy bruising (on plavix). Denies: easy bleeding Past Medical History - Past Medical History Medical history: Reports: atrial fibrillation, cancer, COPD, coronary artery disease, diabetes, GERD, hyperlipidemia, hypertension, kidney stones, other Surgical history: Reports: angioplasty/stent, appendectomy, cancer surgery, cataract, cholecystectomy, herniorrhaphy, pacemaker Psychiatric history: Reports: anxiety, depression - Social History Smoking Status: Former smoker Smokeless Tobacco Status: No Alcohol use: Reports: none Drug use: Reports: none Physical Exam - General Limitations: no limitations General appearance: alert, in no apparent distress Course Vital Signs Temperature 100.2 F H 05/11/18 06:00 Pulse Rate 86 05/11/18 06:00 Respiratory Rate 20 05/11/18 06:00 Blood Pressure 161/72 05/11/18 06:00 O2 Sat by Pulse Oximetry 92 05/11/18 06:00 Temperature 100.2 F H 05/11/18 06:00 Pulse Rate 69 05/11/18 07:39 Respiratory Rate 22 05/11/18 07:39 Blood Pressure 118/57 05/11/18 07:39 O2 Sat by Pulse Oximetry 92 05/11/18 07:41 Oxygen Delivery Oxygen Delivery Nasal Cannula Medical Decision Making - Lab Data Result diagrams: 05/11/18 06:17 05/11/18 06:17 Lab Results 05/11/18 05/11/18 05/11/18 Range/Units 06:15 06:17 06:17 WBC 13.3 H (4.3-11.1) K/mcL RBC 5.42 (4.19-5.50) M/mcL Hgb 14.7 (12.9-16.9) g/dL Hct 44.2 (37.5-50.1) % MCV 81.5 L (83.0-100.0) fL MCH 27.1 L (28.0-33.3) pg MCHC 33.3 (31.6-35.5) g/dL RDW 17.7 H (11.5-14.5) % Plt Count 175 (140-400) K/mcL MPV 9.4 (9.4-12.4) fL Immature Gran % 0.3 (0-4) % Seg Neutrophils % 86.7 % Lymphocytes % 6.4 % Monocytes % 5.3 % Eosinophils % 1.1 % Basophils % 0.2 % Neutrophils # 11.5 H (1.6-8.9) K/mcL Lymphocytes # 0.9 (0.6-4.6) K/mcL Monocytes # 0.7 (0.0-1.3) K/mcL Eosinophils # 0.1 (0.0-0.6) K/mcL Basophils # 0.0 (0.0-0.2) K/mcL PT 12.2 H (9.4-12.1) Seconds INR 1.1 APTT 30.2 (26.0-36.0) Seconds Sodium (136-145) mEq/L Potassium (3.5-5.1) mEq/L Chloride (98-107) mEq/L Carbon Dioxide (23-29) mEq/L BUN (8-23) mg/dL Creatinine (0.70-1.30) mg/dL Est GFR ( Amer) (> 60) Est GFR (Non-Af Amer) (> 60) BUN/Creatinine Ratio (6-26) Glucose (70-105) mg/dL Calculated Osmolality (280-300) Lactic Acid (0.5-2.2) mmol/L Calcium (8.6-10.3) mg/dL Total Bilirubin (0.3-1.0) mg/dL Direct Bilirubin (0.0-0.2) mg/dL Indirect Bilirubin (0.0-1.2) mg/dL AST (13-39) Units/L ALT (7-52) Units/L Alkaline Phosphatase (34-104) Units/L Troponin I (< 0.04) ng/mL B-Natriuretic Peptide (Less than 100) pg/mL Serum Total Protein (6.4-8.9) g/dL Albumin (3.5-5.7) g/dL Globulin (2.4-3.5) g/dL Albumin/Globulin Ratio (1.1-2.2) Urine Color Yellow (Yellow) Urine Clarity Clear (Clear) Urine pH 6.0 (5.0-8.0) pH Units Ur Specific [place] 1.023 (1.010-1.025) Urine Protein Trace (Neg-Trace) mg/dL Urine Glucose (UA) Normal (Normal) mg/dL Urine Ketones Negative (Negative) mg/dL Urine Blood Negative (Negative) Urine Nitrite Negative (Negative) Urine Bilirubin Negative (Negative) Urine Urobilinogen Normal (Normal) mg/dL Ur Leukocyte Esterase Negative (Negative) Urine Microscopic RBC 3-5 H (0-3) per hpf Urine Microscopic WBC 0-3 (0-3) per hpf Ur Squamous Epith Cells Many H (None-Few) per lpf Urine Bacteria None Seen (None-Few) per hpf Hyaline Casts None Seen (None-Few) per lpf Ur Culture Indicated? NO (NO) 05/11/18 05/11/18 05/11/18 Range/Units 06:17 06:17 06:17 WBC (4.3-11.1) K/mcL RBC (4.19-5.50) M/mcL Hgb (12.9-16.9) g/dL Hct (37.5-50.1) % MCV (83.0-100.0) fL MCH (28.0-33.3) pg MCHC (31.6-35.5) g/dL RDW (11.5-14.5) % Plt Count (140-400) K/mcL MPV (9.4-12.4) fL Immature Gran % (0-4) % Seg Neutrophils % % Lymphocytes % % Monocytes % % Eosinophils % % Basophils % % Neutrophils # (1.6-8.9) K/mcL Lymphocytes # (0.6-4.6) K/mcL Monocytes # (0.0-1.3) K/mcL Eosinophils # (0.0-0.6) K/mcL Basophils # (0.0-0.2) K/mcL PT (9.4-12.1) Seconds INR APTT (26.0-36.0) Seconds Sodium 137 (136-145) mEq/L Potassium 4.3 (3.5-5.1) mEq/L Chloride 104 (98-107) mEq/L Carbon Dioxide 22 L (23-29) mEq/L BUN 22 (8-23) mg/dL Creatinine 0.96 (0.70-1.30) mg/dL Est GFR ( Amer) > 60 (> 60) Est GFR (Non-Af Amer) > 60 (> 60) BUN/Creatinine Ratio 23 (6-26) Glucose 198 H (70-105) mg/dL Calculated Osmolality 293 (280-300) Lactic Acid (0.5-2.2) mmol/L Calcium 9.3 (8.6-10.3) mg/dL Total Bilirubin 0.6 (0.3-1.0) mg/dL Direct Bilirubin 0.1 (0.0-0.2) mg/dL Indirect Bilirubin 0.5 (0.0-1.2) mg/dL AST 13 (13-39) Units/L ALT 18 (7-52) Units/L Alkaline Phosphatase 51 (34-104) Units/L Troponin I 0.04 H* (< 0.04) ng/mL B-Natriuretic Peptide 279 H (Less than 100) pg/mL Serum Total Protein 7.0 (6.4-8.9) g/dL Albumin 4.4 (3.5-5.7) g/dL Globulin 2.6 (2.4-3.5) g/dL Albumin/Globulin Ratio 1.7 (1.1-2.2) Urine Color (Yellow) Urine Clarity (Clear) Urine pH (5.0-8.0) pH Units Ur Specific [place] (1.010-1.025) Urine Protein (Neg-Trace) mg/dL Urine Glucose (UA) (Normal) mg/dL Urine Ketones (Negative) mg/dL Urine Blood (Negative) Urine Nitrite (Negative) Urine Bilirubin (Negative) Urine Urobilinogen (Normal) mg/dL Ur Leukocyte Esterase (Negative) Urine Microscopic RBC (0-3) per hpf Urine Microscopic WBC (0-3) per hpf Ur Squamous Epith Cells (None-Few) per lpf Urine Bacteria (None-Few) per hpf Hyaline Casts (None-Few) per lpf Ur Culture Indicated? (NO) 05/11/18 Range/Units 06:43 WBC (4.3-11.1) K/mcL RBC (4.19-5.50) M/mcL Hgb (12.9-16.9) g/dL Hct (37.5-50.1) % MCV (83.0-100.0) fL MCH (28.0-33.3) pg MCHC (31.6-35.5) g/dL RDW (11.5-14.5) % Plt Count (140-400) K/mcL MPV (9.4-12.4) fL Immature Gran % (0-4) % Seg Neutrophils % % Lymphocytes % % Monocytes % % Eosinophils % % Basophils % % Neutrophils # (1.6-8.9) K/mcL Lymphocytes # (0.6-4.6) K/mcL Monocytes # (0.0-1.3) K/mcL Eosinophils # (0.0-0.6) K/mcL Basophils # (0.0-0.2) K/mcL PT (9.4-12.1) Seconds INR APTT (26.0-36.0) Seconds Sodium (136-145) mEq/L Potassium (3.5-5.1) mEq/L Chloride (98-107) mEq/L Carbon Dioxide (23-29) mEq/L BUN (8-23) mg/dL Creatinine (0.70-1.30) mg/dL Est GFR ( Amer) (> 60) Est GFR (Non-Af Amer) (> 60) BUN/Creatinine Ratio (6-26) Glucose (70-105) mg/dL Calculated Osmolality (280-300) Lactic Acid 2.6 H (0.5-2.2) mmol/L Calcium (8.6-10.3) mg/dL Total Bilirubin (0.3-1.0) mg/dL Direct Bilirubin (0.0-0.2) mg/dL Indirect Bilirubin (0.0-1.2) mg/dL AST (13-39) Units/L ALT (7-52) Units/L Alkaline Phosphatase (34-104) Units/L Troponin I (< 0.04) ng/mL B-Natriuretic Peptide (Less than 100) pg/mL Serum Total Protein (6.4-8.9) g/dL Albumin (3.5-5.7) g/dL Globulin (2.4-3.5) g/dL Albumin/Globulin Ratio (1.1-2.2) Urine Color (Yellow) Urine Clarity (Clear) Urine pH (5.0-8.0) pH Units Ur Specific [place] (1.010-1.025) Urine Protein (Neg-Trace) mg/dL Urine Glucose (UA) (Normal) mg/dL Urine Ketones (Negative) mg/dL Urine Blood (Negative) Urine Nitrite (Negative) Urine Bilirubin (Negative) Urine Urobilinogen (Normal) mg/dL Ur Leukocyte Esterase (Negative) Urine Microscopic RBC (0-3) per hpf Urine Microscopic WBC (0-3) per hpf Ur Squamous Epith Cells (None-Few) per lpf Urine Bacteria (None-Few) per hpf Hyaline Casts (None-Few) per lpf Ur Culture Indicated? (NO) Attestation Statement - Attestation Attestation: For this encounter, I have reviewed the [employer] or PA documentation, treatment plan, and medical decision making; and I have had face to face time with this patient. Patient complains of not feeling well productive cough since 2 AM. Cough productive of yellow sputum. He is in no distress on examination satting 92% on oxygen. Lungs clear. Plan. Patient with pneumonia. Temp 100.2. Lactate 2.6. Troponin slightly elevated. Admitted.
[2018-05-11] MEDS ORDERED: Naloxone 0.4 MG/ML INJ IVP PRN (07:51)
[2018-05-11] MEDS ORDERED: D5% in Water 1,000 ML IVC PRN (08:01)
[2018-05-11] MEDS ORDERED: Dextrose Gel 15 GM/37.5 ML TUBE PO PRN ×2 (08:01)
[2018-05-11] MEDS ORDERED: *HR* Dextrose 50 % in Water (Syg) 50 ML SYRINGE IVP PRN (08:01)
--- NOTE | 2018-05-11 08:39 | Internal Med History&Physical ---
Date of Encounter: 05/11/18 Time of Encounter: 08:35 Internal Medicine - H&P: HPI Chief complaint: Coughing and fevers and chills since this am Admitted From: Emergency Dept History of present illness: Mr. Vizcarra is a 77 year old male with pmh of COPD on 2L of home oxygen, CHF, paroxysmal afib, CAD presenting with complaints of fevers , chills and productive cough that suddenly started this am. Patient denies any sick contacts. He also complained of having some blood streaked sputum. He also complains of shortness of breath and wheezing. CXR showed right upper lobe airspace consolidation and he was started on levaquin in the ER Past Med Surg Social Fam HX - Past Medical History Medical history: atrial fibrillation, cancer, COPD, coronary artery disease, diabetes, GERD, hyperlipidemia, hypertension, kidney stones, other Additional medical history: pacemaker, melanoma, cataracts, anemia, kidney stones, cardiac stents x 8, CHF, irreg HR Psychiatric history: anxiety, depression - Past Surgical History Surgical History: angioplasty/stent, appendectomy, cancer surgery, cataract, cholecystectomy, herniorrhaphy, pacemaker Additional surgical history: 8 stents - Social History Smoking Status: Former smoker Smokeless Tobacco Status: No Alcohol use: none Drug use: none - Family History Mother Family Member Ethnicity: Non- Living Status: Hx Family Cardiac Disorders: Yes (HD) Brother Family Member Ethnicity: Non- Living Status: Hx Family Cardiac Disorders: Yes Hx Family Cancer: Yes (Leukemia) Sister Family Member Ethnicity: Non- Living Status: Hx Family Cardiac Disorders: Yes (HD) Hx Family Cancer: Yes Father Family Member Ethnicity: Non- Living Status: Hx Family Cardiac Disorders: Yes (HTN, stroke) Hx Family Respiratory Disorders: No Hx Family Cancer: No Hx Family GI Disorders: No Hx Family Endocrine Disorder: Yes (DM) Hx Family Neuromuscular Disorders: No Hx Family Neurologic Disorders: No Hx Family HEENT Disorders: No Hx Family Autoimmune Disorders: No Internal Medicine - H&P: Meds Albuterol Sulfate [Albuterol Inhaler] 1 puff IH Q4H PRN 08/21/15 [History] Atorvastatin Calcium [Lipitor] 20 mg PO 1700 08/21/15 [History] Bupropion HCl [Wellbutrin Xl] 300 mg PO DAILY 08/21/15 [History] Fluticasone/Salmeterol [Advair 250-50 Diskus] 1 puff IH BID 08/21/15 [History] Insulin Glargine,Hum.rec.anlog [Lantus Solostar] 60 unit SQ HS 08/21/15 [History ] Folic Acid 1 mg PO DAILY 12/18/15 [History] Insulin LISPRO [Humalog] 15 unit SQ TIDWM 06/19/16 [History] Clopidogrel [Plavix] 75 mg PO DAILY #30 tablet 06/20/16 [Rx] Potassium Chloride 10 meq PO DAILY #30 tab.er.prt 11/03/16 [Rx] [place]-3/Dha/Epa/Fish Oil [Fish Oil 1,000 mg Softgel] 1 cap PO TID 12/04/16 [ History] Oxygen 2 l NS HS PRN 12/04/16 [History] Furosemide [Lasix] 20 mg PO DAILY 04/16/17 [History] Magnesium Oxide [Magnesium] 400 mg PO BID 04/16/17 [History] Metoprolol [Lopressor] 25 mg PO BID #60 tablet 05/12/17 [Rx] Ferrous Gluconate 324 mg PO BID 08/13/17 [History] Aspirin [Adult Aspirin Regimen] 81 mg PO DAILY 01/06/18 [History] Loratadine [Allergy Relief] 10 mg PO DAILY 04/15/18 [History] Pantoprazole Sodium 40 mg PO DAILY 04/15/18 [History] Tiotropium [Spiriva] 18 mcg IH DAILY 04/15/18 [History] Cholecalciferol (Vitamin D3) [Vitamin D] 1,000 unit PO BID 05/11/18 [History] Docusate [Colace] 100 mg PO DAILY 05/11/18 [History] Sertraline [Zoloft] 200 mg PO BID 05/11/18 [History] Tamsulosin [Flomax] 0.4 mg PO DAILY 05/11/18 [History] 3 Allergy/AdvReac Type Severity Reaction Status Date / Time codeine Allergy Difficulty Verified 05/11/18 06:00 Breathing Homatropine AdvReac Insomnia Verified 05/11/18 06:00 [From Homatropaire] hydrocodone AdvReac Insomnia Verified 05/11/18 06:00 All Systems PM: A 10-system review of systems was performed and is negative for pertinent findings except as documented above in the HPI. - Constitutional Constitutional: as per HPI - EENT Eyes: as per HPI - Cardiovascular Cardiovascular ROS IM: dyspnea - Respiratory Respiratory: cough, hemoptysis - Gastrointestinal Gastrointestinal: as per HPI - Genitourinary Genitourinary ROS male: as per HPI - Musculoskeletal Musculoskeletal ROS IM: as per HPI - Neurological Neurological ROS: as per HPI - Psychiatric Psychiatric: as per HPI - Constitutional Vitals: Temp Pulse Resp BP Pulse Ox 100.2 F H 69 22 118/57 92 05/11/18 06:00 05/11/18 07:39 05/11/18 07:39 05/11/18 07:39 05/11/18 07:41 - Head Head exam: Present: atraumatic, normocephalic - Eye Eye exam: Present: PERRL, conjuntiva pink, sclera anicteric Pupils: Present: PERRL - Neck Neck exam general surgery: Present: supple, trachea midline. Absent: lymphadenopathy - Respiratory Respiratory exam: Present: wheezes. Absent: accessory muscle use, rales, rhonchi - Cardiovascular Cardiovascular exam: Present: RRR, +S1, +S2. Absent: diastolic murmur, gallop, rubs, systolic murmur - GI/Abdominal GI/Abdominal exam: Present: normal bowel sounds, soft, no peritoneal signs. Absent: distended, tenderness - Extremities Exam Extremities exam: Present: warm, radial pulses palpable and symmetrical. Absent : calf tenderness, cyanotic, pedal edema - Neurological Exam Neurological exam: Present: CN II-XII intact, oriented X3, no focal deficits. Absent: pronater drift, facial droop, speech deficit - Skin Skin exam: Present: dry, intact Internal Med - H&P Results - Labs CBC & Chem 7: 05/11/18 06:17 05/11/18 06:17 - Assessment and plan (1) Sepsis Current Visit: Yes Status: Acute Assessment and plan: Pt had low grade fever, leukocytosis and tachypnea. Was recently in the hospital for CHF. Will start on vanc, levaquin and zosyn for hospital acquired pneumonia. Obtain blood cultures, lactic acid, urine streptococcus and legionella Qualifiers: Sepsis type: sepsis due to unspecified organism Qualified Code(s): A41.9 - Sepsis, unspecified organism (2) Hospital acquired PNA Current Visit: Yes Status: Acute Assessment and plan: On vanc, zosyn and levaquin (3) COPD with exacerbation Current Visit: No Status: Acute Assessment and plan: On nebs, steroids and antibiotics (4) Congestive heart failure Current Visit: No Status: Acute Assessment and plan: No acute exacerbation Qualifiers: Heart failure type: diastolic Heart failure chronicity: acute on chronic Qualified Code(s): I50.33 - Acute on chronic diastolic (congestive) heart failure (5) DVT prophylaxis Current Visit: No Status: Acute Assessment and plan: Heparin sc q 12 - Time Spent With Patient Total time spent is greater than 50% in coordination of care (as documented) at patient's floor/unit and/or counseling patient:
[2018-05-11] MEDS ORDERED: predniSONE 20 MG TABLET PO SCH (09:00)
[2018-05-11] MEDS: Piperacillin/Tazobactam 3.375 GM in 0.9 % Sodium Chloride Mini Bag 100 ML IVPB SCH ×2 (09:15→16:16)
[2018-05-11] MEDS: Folic Acid 1 MG TABLET PO SCH (09:17)
[2018-05-11] MEDS: Loratadine 10 MG TABLET PO SCH (09:17)
[2018-05-11] MEDS: Furosemide 20 MG TABLET PO SCH (09:17)
[2018-05-11] MEDS: (Omega-3/Dha/Epa/Fish Oil [Fish Oil 1,000 Mg Softgel] PO SCH ×3 (09:18→21:07)
[2018-05-11] MEDS: Magnesium Oxide 400 MG TABLET PO SCH ×2 (09:18→21:06)
[2018-05-11] MEDS: Aspirin Enteric Coated 81 MG Tablet PO SCH (09:18)
[2018-05-11] MEDS: BuPROPion XL (24 HR) 150 MG TABLET PO SCH (09:18)
[2018-05-11 09:34] LABS: Estimated Average Glucose 186 mg/dl; Hemoglobin A1C 8.1 %
[2018-05-11] MEDS: Tiotropium 18 MCG inhalation IH SCH (10:52)
[2018-05-11] MEDS: Ipratropium/Albuterol Neb 3 ML IH SCH ×5 (10:52→23:44)
[2018-05-11] MEDS: Insulin LISPRO 300 UNITS/3 ML VIAL SQ SCH ×2 (11:29→16:43)
[2018-05-11] MEDS: Budesonide/Formoterol 160/4.5 MDI IH SCH (16:15)
[2018-05-11] MEDS: MethylPREDNISolone 40 MG/ML VIAL IVP SCH (16:15)
[2018-05-11] MEDS: *HR* Heparin 5,000 UNIT/ML VIAL SQ SCH (16:17)
[2018-05-11] MEDS ORDERED: Ondansetron 4 MG/2 ML VIAL IVP PRN (18:50)
[2018-05-11] MEDS ORDERED: NON-FORMULARY MEDICATION 1 EACH EACH (Oxygen [Oxygen] 2 L) NS SCH (21:00)
[2018-05-11] MEDS: Ascorbic Acid 500 MG TABLET PO SCH (21:06)
[2018-05-11] MEDS: Insulin DETEMIR 100 UNIT/ML X5UNITS SQ SCH (21:07)
[2018-05-12] MEDS: Piperacillin/Tazobactam 3.375 GM in 0.9 % Sodium Chloride Mini Bag 100 ML IVPB SCH ×3 (01:22→16:02)
[2018-05-12] MEDS: MethylPREDNISolone 40 MG/ML VIAL IVP SCH ×2 (01:23→07:36)
[2018-05-12 03:37] LABS: Hematocrit 37.4 % (37.5-50.1); Immature Granulocytes % 0.4 % (0-4); Immature Platelets 1.8 % (1.1-6.1); Lymphocytes # 0.4 K/mcL (0.6-4.6); Lymphocytes % 5.1 %; Mean Corpuscular HGB Conc 33.2 g/dL (31.6-35.5); Mean Corpuscular Hemoglobin 27.5 pg (28.0-33.3); Mean Corpuscular Volume 82.9 fL (83.0-100.0); Mean Platelet Volume 9.4 fL (9.4-12.4); Monocytes # 0.1 K/mcL (0.0-1.3); Monocytes % 1.2 %; Neutrophils # 7.5 K/mcL (1.6-8.9); Platelet Count 156 K/mcL (140-400); Red Blood Count 4.51 M/mcL (4.19-5.50); Red Cell Distribution Width 17.2 % (11.5-14.5); Segmented Neutrophils % 93.3 %
[2018-05-12 03:41] LABS: Hemoglobin 12.4 g/dL (12.9-16.9)
[2018-05-12 04:02] LABS: BUN/Creatinine Ratio 20 (6-26); Blood Urea Nitrogen 21 mg/dL (8-23); Calcium 8.7 mg/dL (8.6-10.3); Carbon Dioxide 24 mEq/L (23-29); Chloride 102 mEq/L (98-107); Glucose 390 mg/dL (70-105); Magnesium 1.9 mg/dL (1.6-2.6); Osmolality,Calculated 297 (280-300); Phosphorous 2.2 mg/dL (2.7-4.5); Potassium 4.7 mEq/L (3.5-5.1); Sodium 134 mEq/L (136-145); eGFR For African Americans > 60 (> 60); eGFR For Non-African Americans > 60 (> 60)
[2018-05-12] MEDS: Ipratropium/Albuterol Neb 3 ML IH SCH ×6 (04:09→23:00)
[2018-05-12] MEDS: *HR* Heparin 5,000 UNIT/ML VIAL SQ SCH ×2 (05:44→16:03)
[2018-05-12] MEDS: Insulin LISPRO 300 UNITS/3 ML VIAL SQ SCH ×3 (07:37→16:12)
[2018-05-12] MEDS: Furosemide 20 MG TABLET PO SCH (07:37)
[2018-05-12] MEDS: (Omega-3/Dha/Epa/Fish Oil [Fish Oil 1,000 Mg Softgel] PO SCH ×2 (07:38→15:14)
[2018-05-12] MEDS: BuPROPion XL (24 HR) 150 MG TABLET PO SCH (07:38)
[2018-05-12] MEDS: Aspirin Enteric Coated 81 MG Tablet PO SCH (07:38)
[2018-05-12] MEDS: Loratadine 10 MG TABLET PO SCH (07:38)
[2018-05-12] MEDS: Folic Acid 1 MG TABLET PO SCH (07:38)
[2018-05-12] MEDS: Magnesium Oxide 400 MG TABLET PO SCH ×2 (07:38→20:19)
[2018-05-12] MEDS: Tiotropium 18 MCG inhalation IH SCH (07:38)
[2018-05-12] MEDS: Budesonide/Formoterol 160/4.5 MDI IH SCH ×2 (10:47→15:14)
[2018-05-12] MEDS ORDERED: Aminoglycoside Consult 1 EACH MC ONE (11:28)
--- NOTE | 2018-05-12 15:01 | Internal Med Progress Note ---
<Best Singer - Last Filed: 05/12/18 15:25> Date of Encounter: 05/12/18 Time of Encounter: 13:00 - Assessment and plan (1) COPD with exacerbation Current Visit: Yes Status: Acute Assessment and plan: COPD with acute exacerbation Remains markedly wheezing today on exam We will increase dose of Solu-Medrol Continue duo nebs scheduled and when necessary Supplemental oxygen to titrate SPO2 greater than 88% (2) Congestive heart failure Current Visit: No Status: Chronic Assessment and plan: No acute exacerbation Although he typically has heart failure with preserved ejection fraction we will continue cardiac meds at this time Qualifiers: Heart failure type: diastolic Heart failure chronicity: acute on chronic Qualified Code(s): I50.33 - Acute on chronic diastolic (congestive) heart failure (3) Diabetes mellitus Current Visit: Yes Status: Chronic Assessment and plan: Diabetes mellitus in poor control Likely secondary to high-dose steroid We will use medium to high dose sliding scale depending on blood glucose, before meals at bedtime Accu-Cheks Continue home dose of Levemir Qualifiers: Diabetes mellitus type: type 2 Diabetes mellitus termite treater insulin use: with termite treater use Diabetes mellitus complication status: with kidney complications Diabetes mellitus complication detail: with chronic kidney disease Chronic kidney disease stage: stage 2 (mild) Qualified Code(s): E11.22 - Type 2 diabetes mellitus with diabetic chronic kidney disease; N18.2 - Chronic kidney disease, stage 2 (mild); Z79.4 - FPC (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 insulin (4) CAD (coronary artery disease), [place] coronary artery Current Visit: Yes Status: Chronic Assessment and plan: Continue aspirin, statin, Plavix, beta camilo, Lasix Qualifiers: [place] vs. transplanted heart: [place] heart Associated angina: without angina Qualified Code(s): I25.10 - Atherosclerotic heart disease of [place] coronary artery without angina pectoris (5) DVT prophylaxis Current Visit: No Status: Acute Assessment and plan: Heparin sc q 12 (6) Sepsis Current Visit: Yes Status: Resolved Qualifiers: Sepsis type: sepsis due to unspecified organism Qualified Code(s): A41.9 - Sepsis, unspecified organism (7) Hospital acquired PNA Current Visit: Yes Status: Acute Assessment and plan: Pneumonia, likely hospital-acquired On vanc, zosyn and levaquin day 2 Blood cultures and sputum cultures pending - Time Spent With Patient Total time spent is greater than 50% in coordination of care (as documented) at patient's floor/unit and/or counseling patient: - Subjective Interval history: The patient is seen and examined at bedside. He says that he is feeling significantly better than he was previously. He does have acute complaint that he continues to have some hemoptysis, however it seems to have improved from previous. He does sample provided for us. Finally he mentions he has a sore throat which she believes is from coughing. Overnight, he did have elevated blood glucose which is likely related to Solu-Medrol. - Constitutional Vitals: Temp Pulse Resp BP Pulse Ox 98 F 81 20 119/63 92 05/12/18 10:41 05/12/18 10:41 05/12/18 11:13 05/12/18 06:37 05/12/18 11:13 Exam: Gen: Vitals noted. No acute distress. HEENT: Normocephalic, atraumatic Neck: Supple. No adenopathy. Cardiac: RRR, no murmur, +S1/S2 Pulmonary: Marked wheezing noted [place] through lungs, decreased or diminished airflow bilaterally Abdomen: soft, nontender, no guarding. Evidence of previous hernia repair with no obvious abdominal herniation at this point Extremities: no BLE edema, nontender calf, no cyanosis or clubbing Neuro: moves all extremities, no focal deficits. Psych: Appropriate mood and behavior Internal Medicine: Result - Labs CBC & Chem 7: 05/12/18 03:21 05/12/18 03:21 Labs: Short CBC 05/12/18 Range/Units 03:21 WBC 8.0 (4.3-11.1) K/mcL Hgb 12.4 L D (12.9-16.9) g/dL Hct 37.4 L (37.5-50.1) % Plt Count 156 (140-400) K/mcL Neutrophils # 7.5 (1.6-8.9) K/mcL BMP 05/12/18 03:21 Sodium 134 L Potassium 4.7 Chloride 102 Carbon Dioxide 24 BUN 21 Creatinine 1.04 Glucose 390 H Calcium 8.7 - ABG Interpretation ABG results: PT/INR, D-dimer PT 12.2 Seconds (9.4-12.1) H 05/11/18 06:17 Consult Discharge Plan - Plan Referrals: Jose Seymour, [Primary Care Provider] - <Kody Tapia - Last Filed: 05/12/18 18:56> Date of Encounter: 05/12/18 - Assessment and plan (1) Pneumonia Current Visit: Yes Status: Suspected Qualifiers: Pneumonia type: due to other aerobic Gram-negative bacteria Laterality: right Lung location: upper lobe of lung Qualified Code(s): J15.6 - Pneumonia due to other Gram-negative bacteria (2) DVT prophylaxis Current Visit: No Status: Acute (3) Diabetes mellitus Current Visit: Yes Status: Chronic Qualifiers: Diabetes mellitus type: type 2 Diabetes mellitus termite treater insulin use: with termite treater use Diabetes mellitus complication status: with kidney complications Diabetes mellitus complication detail: with chronic kidney disease Chronic kidney disease stage: stage 2 (mild) Qualified Code(s): E11.22 - Type 2 diabetes mellitus with diabetic chronic kidney disease; N18.2 - Chronic kidney disease, stage 2 (mild); 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 transplanted heart: [place] heart Associated angina: without angina Qualified Code(s): I25.10 - Atherosclerotic heart disease of [place] coronary artery without angina pectoris (7) Sepsis Current Visit: Yes Status: Resolved Qualifiers: Sepsis type: sepsis due to unspecified organism Qualified Code(s): A41.9 - Sepsis, unspecified organism (8) Hospital acquired PNA Current Visit: Yes Status: Acute - Time Spent With Patient Total time spent is greater than 50% in coordination of care (as documented) at patient's floor/unit and/or counseling patient: - Constitutional Vitals: Temp Pulse Resp BP Pulse Ox 98.1 F 60 17 123/58 93 05/12/18 16:01 05/12/18 16:01 05/12/18 16:01 05/12/18 16:01 05/12/18 16:01 Internal Medicine: Result - Labs CBC & Chem 7: 05/12/18 03:21 05/12/18 03:21 Labs: Short CBC 05/12/18 Range/Units 03:21 WBC 8.0 (4.3-11.1) K/mcL Hgb 12.4 L D (12.9-16.9) g/dL Hct 37.4 L (37.5-50.1) % Plt Count 156 (140-400) K/mcL Neutrophils # 7.5 (1.6-8.9) K/mcL BMP 05/12/18 03:21 Sodium 134 L Potassium 4.7 Chloride 102 Carbon Dioxide 24 BUN 21 Creatinine 1.04 Glucose 390 H Calcium 8.7 - ABG Interpretation ABG results: PT/INR, D-dimer PT 12.2 Seconds (9.4-12.1) H 05/11/18 06:17 - Attending Attestation I examined this patient and my medical decision-making was reviewed with the Resident Physician on 05/12/18. I agree with the documented findings, disposition and treatment plan as described except to the extent set forth below. Mr Vizcarra is currently admitted for pneumonia and exac COPD. He remains moderate to high risk due to potential for worsening clinical status. Mr Vizcarra is breathing somewhat better. No fever or chills. Still coughing. No GI issues. Wants to go home soon. Exam alert Comfortable Mucus membranes dry Heart distant Lungs with some wheeze abd soft I/P 1. PNA 2. COPD exac Further diagnoses and plan as above.
[2018-05-12] MEDS ORDERED: GuaiFENesin Liq 200 MG/10 ML UDC PO PRN (15:38)
[2018-05-12] MEDS ORDERED: Menthol 9.1 MG LOZENGE PO PRN (15:39)
[2018-05-12] MEDS: methylPREDNISolone 125 MG/2 ML VIAL IVP SCH (16:03)
[2018-05-12] MEDS: Sennosides/Docusate Sodium TABLET PO SCH ×2 (16:03→20:19)
[2018-05-12] MEDS: Ascorbic Acid 500 MG TABLET PO SCH (20:19)
[2018-05-12] MEDS: Insulin DETEMIR 100 UNIT/ML X5UNITS SQ SCH (20:19)
[2018-05-12] MEDS ORDERED: Insulin LISPRO 300 UNITS/3 ML VIAL SQ SCH (21:00)
[2018-05-13] MEDS: methylPREDNISolone 125 MG/2 ML VIAL IVP SCH ×2 (01:37→08:36)
[2018-05-13] MEDS: Piperacillin/Tazobactam 3.375 GM in 0.9 % Sodium Chloride Mini Bag 100 ML IVPB SCH ×2 (01:37→08:36)
[2018-05-13] MEDS: Ipratropium/Albuterol Neb 3 ML IH SCH ×5 (04:38→20:07)
[2018-05-13 04:44] LABS: Basophils % 0.1 %; Hematocrit 37.2 % (37.5-50.1); Immature Granulocytes % 0.5 % (0-4); Lymphocytes # 0.4 K/mcL (0.6-4.6); Lymphocytes % 4.5 %; Mean Corpuscular HGB Conc 32.3 g/dL (31.6-35.5); Mean Corpuscular Hemoglobin 26.7 pg (28.0-33.3); Mean Corpuscular Volume 82.9 fL (83.0-100.0); Monocytes # 0.3 K/mcL (0.0-1.3); Monocytes % 3.3 %; Neutrophils # 8.1 K/mcL (1.6-8.9); Platelet Count 169 K/mcL (140-400); Red Blood Count 4.49 M/mcL (4.19-5.50); Red Cell Distribution Width 17.5 % (11.5-14.5); Segmented Neutrophils % 91.6 %
[2018-05-13 05:05] LABS: BUN/Creatinine Ratio 20 (6-26); Blood Urea Nitrogen 22 mg/dL (8-23); Carbon Dioxide 25 mEq/L (23-29); Chloride 99 mEq/L (98-107); Glucose 431 mg/dL (70-105); Osmolality,Calculated 298 (280-300); Potassium 4.9 mEq/L (3.5-5.1); Sodium 133 mEq/L (136-145); eGFR For African Americans > 60 (> 60); eGFR For Non-African Americans > 60 (> 60)
[2018-05-13] MEDS: *HR* Heparin 5,000 UNIT/ML VIAL SQ SCH ×2 (06:24→16:44)
[2018-05-13] MEDS: Sennosides/Docusate Sodium TABLET PO SCH ×2 (08:35→21:39)
[2018-05-13] MEDS: Furosemide 20 MG TABLET PO SCH (08:35)
[2018-05-13] MEDS: Aspirin Enteric Coated 81 MG Tablet PO SCH (08:35)
[2018-05-13] MEDS: BuPROPion XL (24 HR) 150 MG TABLET PO SCH (08:35)
[2018-05-13] MEDS: Folic Acid 1 MG TABLET PO SCH (08:36)
[2018-05-13] MEDS: Loratadine 10 MG TABLET PO SCH (08:36)
[2018-05-13] MEDS: Magnesium Oxide 400 MG TABLET PO SCH ×2 (08:36→21:38)
[2018-05-13] MEDS: Budesonide/Formoterol 160/4.5 MDI IH SCH ×2 (08:39→08:40)
--- NOTE | 2018-05-13 09:47 | Electrocardiograph Report ---
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
[2018-05-13] MEDS: Cholecalciferol (D-3) 1,000 UNIT TABLET PO SCH (09:52)
[2018-05-13] MEDS: Insulin LISPRO 300 UNITS/3 ML VIAL SQ SCH ×5 (09:53→16:45)
--- NOTE | 2018-05-13 10:55 | Internal Med Progress Note ---
<Best Singer - Last Filed: 05/13/18 10:52> Date of Encounter: 05/13/18 Time of Encounter: 09:10 - Assessment and plan (1) COPD with exacerbation Current Visit: Yes Status: Acute Assessment and plan: COPD with acute exacerbation Remains markedly wheezing today on exam We will increase dose of Solu-Medrol Continue duo nebs scheduled and when necessary Supplemental oxygen to titrate SPO2 greater than 88% 05/13 Significant improvement from previous day I will stop solumedrol, de-escalate to PO Prednisone 40mg Transition to PO Levaquin for Abx coverage Likely D/C tomorrow (2) Diabetes mellitus Current Visit: Yes Status: Chronic Assessment and plan: Diabetes mellitus in poor control Likely secondary to high-dose steroid We will use medium to high dose sliding scale depending on blood glucose, before meals at bedtime Accu-Cheks Continue home dose of Levemir 05/13 Decrease steroid dose to PO Prednisone 40mg Add prandial insulin, Increase to high dose sliding scale Monitor overnight Qualifiers: Diabetes mellitus type: type 2 Diabetes mellitus alf insulin use: with alf use Diabetes mellitus complication status: with kidney complications Diabetes mellitus complication detail: with chronic kidney disease Chronic kidney disease stage: stage 2 (mild) Qualified Code(s): E11.22 - Type 2 diabetes mellitus with diabetic chronic kidney disease; N18.2 - Chronic kidney disease, stage 2 (mild); Z79.4 - intermediate card tender (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 insulin (3) Congestive heart failure Current Visit: No Status: Chronic Assessment and plan: No acute exacerbation Although he typically has heart failure with preserved ejection fraction we will continue cardiac meds at this time Qualifiers: Heart failure type: diastolic Heart failure chronicity: acute on chronic Qualified Code(s): I50.33 - Acute on chronic diastolic (congestive) heart failure (4) CAD (coronary artery disease), [place] coronary artery Current Visit: Yes Status: Chronic Assessment and plan: Continue aspirin, statin, Plavix, beta camilo, Lasix Qualifiers: [place] vs. transplanted heart: [place] heart Associated angina: without angina Qualified Code(s): I25.10 - Atherosclerotic heart disease of [place] coronary artery without angina pectoris (5) Sepsis Current Visit: Yes Status: Resolved Assessment and plan: Resolved Qualifiers: Sepsis type: sepsis due to unspecified organism Qualified Code(s): A41.9 - Sepsis, unspecified organism (6) Hospital acquired PNA Current Visit: Yes Status: Acute (7) DVT prophylaxis Current Visit: No Status: Acute (8) Pneumonia Current Visit: Yes Status: Suspected Assessment and plan: Pneumonia, likely hospital-acquired On vanc, zosyn and levaquin day 2 Blood cultures and sputum cultures pending 05/13 Antibiotic Day 3 of 10 Cultures remain negative, I will stop Vanc and Zosyn Continue PO Levaquin Qualifiers: Pneumonia type: due to other aerobic Gram-negative bacteria Laterality: right Lung location: upper lobe of lung Qualified Code(s): J15.6 - Pneumonia due to other Gram-negative bacteria - Time Spent With Patient Total time spent is greater than 50% in coordination of care (as documented) at patient's floor/unit and/or counseling patient: - Subjective Interval history: The patient is seen and examined at bedside. He says that he is feeling significantly better than he was previously. No acute complaints overnight. - Constitutional Vitals: Temp Pulse Resp BP Pulse Ox 97.9 F 71 18 155/82 93 05/13/18 07:29 05/13/18 07:29 05/13/18 07:56 05/13/18 07:29 05/13/18 07:56 Exam: Gen: Vitals noted. No acute distress. HEENT: Normocephalic, atraumatic Neck: Supple. No adenopathy. Cardiac: RRR, no murmur, +S1/S2 Pulmonary: CTAB without any wheezes or rhonchi Abdomen: soft, nontender, no guarding. Evidence of previous hernia repair with no obvious abdominal herniation at this point Extremities: no BLE edema, nontender calf, no cyanosis or clubbing Neuro: moves all extremities, no focal deficits. Psych: Appropriate mood and behavior Internal Medicine: Result - Labs CBC & Chem 7: 05/13/18 04:01 05/13/18 04:01 Labs: Short CBC 05/13/18 Range/Units 04:01 WBC 8.8 (4.3-11.1) K/mcL Hgb 12.0 L (12.9-16.9) g/dL Hct 37.2 L (37.5-50.1) % Plt Count 169 (140-400) K/mcL Neutrophils # 8.1 (1.6-8.9) K/mcL BMP 07/06/18 04:01 Sodium 133 L Potassium 4.9 Chloride 99 Carbon Dioxide 25 BUN 22 Creatinine 1.10 Glucose 431 H Calcium 9.0 - ABG Interpretation ABG results: PT/INR, D-dimer PT 12.2 Seconds (9.4-12.1) H 05/11/18 06:17 Consult Discharge Plan - Plan Referrals: Jose Seymour, [Primary Care Provider] - <Kody Tapia - Last Filed: 05/13/18 18:03> Date of Encounter: 05/13/18 - Assessment and plan (1) Diabetes mellitus Current Visit: Yes Status: Chronic Qualifiers: Diabetes mellitus type: type 2 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: with 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 use Diabetes mellitus complication status: with kidney complications Diabetes mellitus complication detail: with chronic kidney disease Chronic kidney disease stage: stage 2 (mild) Qualified Code(s): E11.22 - Type 2 diabetes mellitus with diabetic chronic kidney disease; N18.2 - Chronic kidney disease, stage 2 (mild); Z79.4 - senior living (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 insulin (2) DVT prophylaxis Current Visit: No Status: Acute (3) Congestive heart failure Current Visit: No Status: Chronic Qualifiers: Heart failure type: diastolic Heart failure chronicity: acute on chronic Qualified Code(s): I50.33 - Acute on chronic diastolic (congestive) heart failure (4) COPD with exacerbation Current Visit: Yes Status: Acute (5) CAD (coronary artery disease), [place] coronary artery Current Visit: Yes Status: Chronic Qualifiers: [place] vs. transplanted heart: [place] heart Associated angina: without angina Qualified Code(s): I25.10 - Atherosclerotic heart disease of [place] coronary artery without angina pectoris (6) Sepsis Current Visit: Yes Status: Resolved Qualifiers: Sepsis type: sepsis due to unspecified organism Qualified Code(s): A41.9 - Sepsis, unspecified organism (7) Hospital acquired PNA Current Visit: Yes Status: Acute (8) Pneumonia Current Visit: Yes Status: Suspected Qualifiers: Pneumonia type: due to other aerobic Gram-negative bacteria Laterality: right Lung location: upper lobe of lung Qualified Code(s): J15.6 - Pneumonia due to other Gram-negative bacteria - Time Spent With Patient Total time spent is greater than 50% in coordination of care (as documented) at patient's floor/unit and/or counseling patient: - Constitutional Vitals: Temp Pulse Resp BP Pulse Ox 97.8 F 64 18 145/72 94 05/13/18 15:24 05/13/18 15:24 05/13/18 15:47 05/13/18 15:24 05/13/18 15:47 Internal Medicine: Result - Labs CBC & Chem 7: 05/13/18 04:01 05/13/18 04:01 Labs: Short CBC 05/13/18 Range/Units 04:01 WBC 8.8 (4.3-11.1) K/mcL Hgb 12.0 L (12.9-16.9) g/dL Hct 37.2 L (37.5-50.1) % Plt Count 169 (140-400) K/mcL Neutrophils # 8.1 (1.6-8.9) K/mcL BMP 05/13/18 04:01 Sodium 133 L Potassium 4.9 Chloride 99 Carbon Dioxide 25 BUN 22 Creatinine 1.10 Glucose 431 H Calcium 9.0 - ABG Interpretation ABG results: PT/INR, D-dimer PT 12.2 Seconds (9.4-12.1) H 05/11/18 06:17 - Attending Attestation I examined this patient and my medical decision-making was reviewed with the Resident Physician on 05/13/18. I agree with the documented findings, disposition and treatment plan as described except to the extent set forth below. Mr Vizcarra is currently admitted for COPD and pneumonia. He remains moderate to high risk due to potential for worsening clinical status. Mr Vizcarra is doing somewhat better with increased IV steroid dose. He is coughing some. No fever or chills. No GI issues. Exam Mucus membranes dry Heart reg No wheeze at this time Abd soft I/P 1. COPD exac 2. Pneumonia Further diagnoses and plan as above. Decrease steroids today. Possible d/c tomorrow.
[2018-05-13] MEDS: predniSONE 20 MG TABLET PO SCH (12:13)
[2018-05-13] MEDS: levoFLOXacin 750 MG TABLET PO SCH (12:14)
[2018-05-13] MEDS ORDERED: Insulin LISPRO 300 UNITS/3 ML VIAL SQ SCH (21:00)
[2018-05-13] MEDS: Ascorbic Acid 500 MG TABLET PO SCH (21:38)
[2018-05-13] MEDS: Insulin DETEMIR 100 UNIT/ML X5UNITS SQ SCH (21:39)
[2018-05-14] MEDS: Ipratropium/Albuterol Neb 3 ML IH SCH ×4 (00:17→11:16)
[2018-05-14 05:14] LABS: BUN/Creatinine Ratio 26 (6-26); Blood Urea Nitrogen 26 mg/dL (8-23); Carbon Dioxide 27 mEq/L (23-29); Chloride 99 mEq/L (98-107); Glucose 287 mg/dL (70-105); Osmolality,Calculated 295 (280-300); Potassium 4.1 mEq/L (3.5-5.1); Sodium 135 mEq/L (136-145); eGFR For African Americans > 60 (> 60); eGFR For Non-African Americans > 60 (> 60)
[2018-05-14] MEDS: *HR* Heparin 5,000 UNIT/ML VIAL SQ SCH (05:46)
[2018-05-14 06:32] VITALS: BP 149/74
[2018-05-14] MEDS: Insulin LISPRO 300 UNITS/3 ML VIAL SQ SCH ×2 (08:19→08:20)
[2018-05-14] MEDS: Loratadine 10 MG TABLET PO SCH (08:20)
[2018-05-14] MEDS: Aspirin Enteric Coated 81 MG Tablet PO SCH (08:20)
[2018-05-14] MEDS: BuPROPion XL (24 HR) 150 MG TABLET PO SCH (08:21)
[2018-05-14] MEDS: predniSONE 20 MG TABLET PO SCH (08:21)
[2018-05-14] MEDS: Folic Acid 1 MG TABLET PO SCH (08:21)
[2018-05-14] MEDS: Sennosides/Docusate Sodium TABLET PO SCH (08:21)
[2018-05-14] MEDS: Magnesium Oxide 400 MG TABLET PO SCH (08:21)
[2018-05-14] MEDS: Furosemide 20 MG TABLET PO SCH (08:21)
[2018-05-14] MEDS: Cholecalciferol (D-3) 1,000 UNIT TABLET PO SCH (08:22)
--- NOTE | 2018-05-14 08:53 | Discharge Summary ---
<Best Singer - Last Filed: 05/14/18 09:34> - NOTES TO OUTPATIENT PROVIDER Notes to Outpatient Provider: The patient presented with apparent HCAP and COPD Exacerbation. Treated with steroids and ABX, symptoms resolved. Insulin regimen adjusted for hyperglycemia due to steroid use Date of Encounter: 05/14/18 Time of Encounter: 08:50 - Discharge Diagnosis (1) COPD with exacerbation Priority: Secondary Status: Acute Assessment and Plan: DC on course of prednisone, 5 day course total Antibiotics as above (2) Diabetes mellitus Priority: Secondary Status: Chronic Assessment and Plan: Glucose under better control Patient has been instructed to continue current home insulin regimen, he uses sliding scale to keep glucose <200 Qualifiers: Diabetes mellitus type: type 2 Diabetes mellitus terminal gauger insulin use: with terminal gauger use Diabetes mellitus complication status: with kidney complications Diabetes mellitus complication detail: with chronic kidney disease Chronic kidney disease stage: stage 2 (mild) Qualified Code(s): E11.22 - Type 2 diabetes mellitus with diabetic chronic kidney disease; N18.2 - Chronic kidney disease, stage 2 (mild); 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 transplanted heart: [place] heart Associated angina: without angina Qualified Code(s): I25.10 - Atherosclerotic heart disease of [place] coronary artery without angina pectoris (5) Hospital acquired PNA Priority: Secondary Status: Acute Assessment and Plan: As above (6) Sepsis Priority: Secondary Status: Resolved Assessment and Plan: Resolved Qualifiers: Sepsis type: sepsis due to unspecified organism Qualified Code(s): A41.9 - Sepsis, unspecified organism (7) Pneumonia Priority: Primary Status: Suspected Assessment and Plan: Hospital acquired pneumonia, transitioned to Levaquin day 3 of 7 Blood cultures and sputum cultures negative Will discharge on Levaquin for full course Qualifiers: Pneumonia type: due to other aerobic Gram-negative bacteria Laterality: right Lung location: upper lobe of lung Qualified Code(s): J15.6 - Pneumonia due to other Gram-negative bacteria Hospital course: Mr. Vizcarra is a 77 year old male history of COPD on 2L of home oxygen, CHF, paroxysmal A. fib, CAD who presented to the ED with fevers, chills and productive cough following recent admission for CHF exacerbation. He was found to have HCAP with COPD exacerbation, and was treated with IV Vancomycin/Zosyn and solu-medrol. His respiratory status continued to improve, and his antibiotics and steroids were de-escalated. He is now stable for discharge on home meds with remaining course of PO prednisone + levaquin. For more detailed information regarding hospital course and post-discharge planning, please see individual assessment and plan. Discharge discussed with: patient, family, nurse, social work, case management - Time Spent with Patient Total time spent providing and/or coordinating discharge services: Greater than 30 minutes - Discharge Medications Prescriptions: Ipratropium/Albuterol Neb [Duoneb] 3 ml IH Q6HR 30 Days #120 vial.neb levoFLOXacin [Levaquin] 750 mg PO Q24H #4 tablet predniSONE [PredniSONE] 20 mg PO DAILY 2 Days #4 tablet Home Medications: Albuterol Sulfate [Albuterol Inhaler] 1 puff IH Q4H PRN 08/21/15 [History] Atorvastatin Calcium [Lipitor] 20 mg PO 1700 08/21/15 [History] Bupropion HCl [Wellbutrin Xl] 300 mg PO DAILY 08/21/15 [History] Fluticasone/Salmeterol [Advair 250-50 Diskus] 1 puff IH BID 08/21/15 [History] Insulin Glargine,Hum.rec.anlog [Lantus Solostar] 60 unit SQ HS 08/21/15 [History ] Folic Acid 1 mg PO DAILY 12/18/15 [History] Insulin LISPRO [Humalog] 15 unit SQ TIDWM 06/19/16 [History] Clopidogrel [Plavix] 75 mg PO DAILY #30 tablet 06/20/16 [Rx] Potassium Chloride 10 meq PO DAILY #30 tab.er.prt 11/03/16 [Rx] [place]-3/Dha/Epa/Fish Oil [Fish Oil 1,000 mg Softgel] 1 cap PO TID 12/04/16 [ History] Oxygen 2 l NS HS PRN 12/04/16 [History] Furosemide [Lasix] 20 mg PO DAILY 04/16/17 [History] Magnesium Oxide [Magnesium] 400 mg PO BID 04/16/17 [History] Metoprolol [Lopressor] 25 mg PO BID #60 tablet 05/12/17 [Rx] Ferrous Gluconate 324 mg PO BID 08/13/17 [History] Aspirin [Adult Aspirin Regimen] 81 mg PO DAILY 01/06/18 [History] Loratadine [Allergy Relief] 10 mg PO DAILY 04/15/18 [History] Pantoprazole Sodium 40 mg PO DAILY 04/15/18 [History] Tiotropium [Spiriva] 18 mcg IH DAILY 04/15/18 [History] Cholecalciferol (Vitamin D3) [Vitamin D3] 1,000 unit PO BID 05/11/18 [History] Docusate [Colace] 100 mg PO DAILY 05/11/18 [History] Sertraline [Zoloft] 200 mg PO BID 05/11/18 [History] Tamsulosin [Flomax] 0.4 mg PO DAILY 05/11/18 [History] Ipratropium/Albuterol Neb [Duoneb] 3 ml IH [id number] inhsol 05/14/18 [Rx] Ipratropium/Albuterol Neb [Duoneb] 3 ml IH Q6HR 30 Days #120 vial.neb 05/14/18 [ Rx] levoFLOXacin [Levaquin] 750 mg PO Q24H #4 tablet 05/14/18 [Rx] predniSONE [PredniSONE] 20 mg PO DAILY 2 Days #4 tablet 05/14/18 [Rx] Allergies/Adverse Reactions: 3 Allergy/AdvReac Type Severity Reaction Status Date / Time codeine Allergy Difficulty Verified 05/11/18 06:00 Breathing Homatropine AdvReac Insomnia Verified 05/11/18 06:00 [From Homatropaire] hydrocodone AdvReac Insomnia Verified 05/11/18 06:00 Date of admission: 05/11/18 10:52 Primary care physician: Jose Seymour DO Consults: 05/11/18 14:36 Consult to [facility] [employer] [facility] [CONS] Routine Reason for SW Consult: wanting to be set up with home health 05/11/18 14:37 Consult to Nurse Navigator [CONS] Routine Comment: asking to speak with nurse melia Tinoco Discharging clinician: Best Singer Anticipated date of discharge: 05/14/18 - Constitutional Vitals: Temp Pulse Resp BP Pulse Ox 97.6 F 63 16 149/74 92 05/14/18 06:00 05/14/18 06:00 05/14/18 07:40 05/14/18 06:00 05/14/18 07:40 Exam: Gen: Vitals noted. No acute distress. HEENT: Normocephalic, atraumatic Neck: Supple. No adenopathy. Cardiac: RRR, no murmur, +S1/S2 Pulmonary: CTAB without any wheezes or rhonchi Abdomen: soft, nontender, no guarding. Evidence of previous hernia repair with no obvious abdominal herniation at this point Extremities: no BLE edema, nontender calf, no cyanosis or clubbing Neuro: moves all extremities, no focal deficits. Psych: Appropriate mood and behavior - Patient Status Disposition: Home Health Service Condition: Good Functional capacity at discharge: independent ambulation Overall status at discharge: patient is progressing back to baseline - Discharge Instructions Instructions: Prednisone (By mouth), Levofloxacin (By mouth), Heart Failure (DC ), Diabetes Mellitus Type 2 in Adults (DC), Chronic Obstructive Pulmonary Disease (DC), Sepsis (DC), Pneumonia (DC) Follow Up With: Jose Seymour DO [Primary Care Provider] - (please call for appointment within 3-5 days) Additional Instructions: Follow-up with PCP in 3-5 days Continue Levaquin and Prednisone as prescribed Continuing dry cough may persist for 3-4 weeks For recurrent symptoms, increased O2 need, chest pains, or any acute concern, consider returning to the ED. - Diet and Activity Activity: increase activity as tolerated Diet: advance to your usual diet <Kody Tapia - Last Filed: 05/14/18 18:30> Date of Encounter: 05/14/18 - Discharge Diagnosis (1) Diabetes mellitus Status: Chronic Qualifiers: Diabetes mellitus type: type 2 Diabetes mellitus terminal gauger insulin use: with retirement use Diabetes mellitus complication status: with kidney complications Diabetes mellitus complication detail: with chronic kidney disease Chronic kidney disease stage: stage 2 (mild) Qualified Code(s): E11.22 - Type 2 diabetes mellitus with diabetic chronic kidney disease; N18.2 - Chronic kidney disease, stage 2 (mild); 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 transplanted heart: [place] heart Associated angina: without angina Qualified Code(s): I25.10 - Atherosclerotic heart disease of [place] coronary artery without angina pectoris (5) Sepsis Status: Resolved Qualifiers: Sepsis type: sepsis due to unspecified organism Qualified Code(s): A41.9 - Sepsis, unspecified organism (6) Hospital acquired PNA Status: Acute (7) Pneumonia Status: Suspected Qualifiers: Pneumonia type: due to other aerobic Gram-negative bacteria Laterality: right Lung location: upper lobe of lung Qualified Code(s): J15.6 - Pneumonia due to other Gram-negative bacteria Hospital course: Mr. Vizcarra is a 77 year old male - Time Spent with Patient Total time spent providing and/or coordinating discharge services: Date of admission: 05/11/18 10:52 Primary care physician: Jose Seymour DO Consults: 05/11/18 14:36 Consult to [facility] [employer] [facility] [CONS] Routine Reason for SW Consult: wanting to be set up with home health 05/11/18 14:37 Consult to Nurse Navigator [CONS] Routine Comment: asking to speak with nurse melia Tinoco - Constitutional Vitals: Temp Pulse Resp BP Pulse Ox 97.6 F 63 16 149/74 92 05/14/18 06:00 05/14/18 06:00 05/14/18 07:40 05/14/18 06:00 05/14/18 07:40 - Attending Attestation I examined this patient and my medical decision-making was reviewed with the Resident Physician on 05/14/18. I agree with the documented findings, disposition and treatment plan as described except to the extent set forth below. Mr Vizcarra has been admitted for acute pneumonia and COPD. He has improved with treatment. He is now afebrile and feels ready for discharge home. Exam alert Comfortable Mucus membranes dry heart reg Lungs diminished Plan D/C home today
--- NOTE | 2018-05-14 09:37 | Physician Discharge Referral ---
Home Health/Hosp Referral Info Transfer to: Home Health Attending Provider: Kody Tapia DO Provider in Charge Post Discharge: PCP - Diagnosis (1) Pneumonia Priority: Primary Status: Suspected (2) COPD with exacerbation Priority: Secondary Status: Acute (3) Diabetes mellitus Priority: Secondary Status: Chronic (4) Congestive heart failure Priority: Secondary Status: Chronic (5) CAD (coronary artery disease), [place] coronary artery Priority: Secondary Status: Chronic (6) Hospital acquired PNA Priority: Secondary Status: Acute (7) Sepsis Priority: Secondary Status: Resolved - Respiratory Orders Oxygen / L per min (Titrate to SpO2 >88%) Smoking Cessation: Smoking cessation has been advised. For more information, call the [place] Tobacco Quit Line at 0-549-YBWT-NOW. - Diet/Nutrition Diet/Nutrition Orders: No Concentrated Sweets - Activity Activity Orders: Up ad meliza - Services Needed Following services are medically necessary services: Nursing, Home Health Aide, Physical Therapy, Occupational Therapy - Transfer Medications Prescriptions: levoFLOXacin [Levaquin] 750 mg PO Q24H #4 tablet predniSONE [PredniSONE] 20 mg PO DAILY 2 Days #4 tablet Home Medications: Albuterol Sulfate [Albuterol Inhaler] 1 puff IH Q4H PRN 08/21/15 [History] Atorvastatin Calcium [Lipitor] 20 mg PO 1700 08/21/15 [History] Bupropion HCl [Wellbutrin Xl] 300 mg PO DAILY 08/21/15 [History] Fluticasone/Salmeterol [Advair 250-50 Diskus] 1 puff IH BID 08/21/15 [History] Insulin Glargine,Hum.rec.anlog [Lantus Solostar] 60 unit SQ HS 08/21/15 [History ] Folic Acid 1 mg PO DAILY 12/18/15 [History] Insulin LISPRO [Humalog] 15 unit SQ TIDWM 06/19/16 [History] Clopidogrel [Plavix] 75 mg PO DAILY #30 tablet 06/20/16 [Rx] Potassium Chloride 10 meq PO DAILY #30 tab.er.prt 11/03/16 [Rx] [place]-3/Dha/Epa/Fish Oil [Fish Oil 1,000 mg Softgel] 1 cap PO TID 12/04/16 [ History] Oxygen 2 l NS HS PRN 12/04/16 [History] Furosemide [Lasix] 20 mg PO DAILY 04/16/17 [History] Magnesium Oxide [Magnesium] 400 mg PO BID 04/16/17 [History] Metoprolol [Lopressor] 25 mg PO BID #60 tablet 05/12/17 [Rx] Ferrous Gluconate 324 mg PO BID 08/13/17 [History] Aspirin [Adult Aspirin Regimen] 81 mg PO DAILY 01/06/18 [History] Loratadine [Allergy Relief] 10 mg PO DAILY 04/15/18 [History] Pantoprazole Sodium 40 mg PO DAILY 04/15/18 [History] Tiotropium [Spiriva] 18 mcg IH DAILY 04/15/18 [History] Cholecalciferol (Vitamin D3) [Vitamin D3] 1,000 unit PO BID 05/11/18 [History] Docusate [Colace] 100 mg PO DAILY 05/11/18 [History] Sertraline [Zoloft] 200 mg PO BID 05/11/18 [History] Tamsulosin [Flomax] 0.4 mg PO DAILY 05/11/18 [History] Ipratropium/Albuterol Neb [Duoneb] 3 ml IH [id number] inhsol 05/14/18 [Rx] levoFLOXacin [Levaquin] 750 mg PO Q24H #4 tablet 05/14/18 [Rx] predniSONE [PredniSONE] 20 mg PO DAILY 2 Days #4 tablet 05/14/18 [Rx] Allergies/Adverse Reactions: 3 Allergy/AdvReac Type Severity Reaction Status Date / Time codeine Allergy Difficulty Verified 05/11/18 06:00 Breathing Homatropine AdvReac Insomnia Verified 05/11/18 06:00 [From Homatropaire] hydrocodone AdvReac Insomnia Verified 05/11/18 06:00 Certification: Further, I certify that my clinical findings support that this patient is homebound (i.e. absences from home require considerable and taxing effort and are for medical reasons or church services or infrequently or short duration when for other reasons) because: Homebound Reason: Leaving home requires considerable and taxing effort due to condition, Severity of cardiac or pulmonary status limits activity tolerance Attestation: My signature below is to certify that this patient is under my care and that I, or nurse practitioner, or a physician's food and beverage assistant working with me, has a face-to -face encounter with this patient.
[2018-05-14] MEDS: levoFLOXacin 750 MG TABLET PO SCH (10:42)
== END 2018-05-14 11:29 | disposition home health service (06) | DRG 871 ==
LOC: 2NENU 05:59 → EMEROO 05:59 → 2NENU 08:27 → SUATTDRO 10:52
PROVIDERS: ADMIT Student in an Organized Health Care Education/Training Program; ATTEND Internal Medicine

== ENCOUNTER 2018-07-27 22:02 | Inpatient (IN) ==
[2018-07-27] MEDS ORDERED: methylPREDNISolone 125 MG/2 ML VIAL IVP ONE (22:31)
[2018-07-27] MEDS ORDERED: Ipratropium/Albuterol Neb 3 ML IH ONE (22:31)
[2018-07-27 22:55] LABS: Basophils # 0.1 K/mcL (0.0-0.2); Basophils % 0.6 %; Eosinophils # 0.2 K/mcL (0.0-0.6); Eosinophils % 2.1 %; Hematocrit 38.6 % (37.5-50.1); Immature Granulocytes % 0.4 % (0-4); Lymphocytes # 1.6 K/mcL (0.6-4.6); Lymphocytes % 15.4 %; Mean Corpuscular HGB Conc 31.1 g/dL (31.6-35.5); Mean Corpuscular Hemoglobin 26.4 pg (28.0-33.3); Mean Corpuscular Volume 84.8 fL (83.0-100.0); Mean Platelet Volume 9.7 fL (9.4-12.4); Monocytes # 0.6 K/mcL (0.0-1.3); Monocytes % 5.8 %; Neutrophils # 7.8 K/mcL (1.6-8.9); Platelet Count 198 K/mcL (140-400); Red Blood Count 4.55 M/mcL (4.19-5.50); Red Cell Distribution Width 17.6 % (11.5-14.5); Segmented Neutrophils % 75.7 %
--- NOTE | 2018-07-27 23:06 | Emergency Department Note ---
Disposition Clinical Impression: Elevated troponin Dyspnea Qualifiers: Dyspnea type: shortness of breath Qualified Code(s): R06.02 - Shortness of breath COPD (chronic obstructive pulmonary disease) Qualifiers: COPD type: COPD with acute exacerbation Qualified Code(s): J44.1 - Chronic obstructive pulmonary disease with (acute) exacerbation Congestive heart failure Qualifiers: Heart failure type: unspecified Heart failure chronicity: acute on chronic Qualified Code(s): I50.9 - Heart failure, unspecified Disposition: Admitted As Inpatient General Adult HPI - General Chief complaint: ED Shortness of Breath/Dyspnea Stated complaint: MARAL Time Seen by Provider: 07/27/18 22:21 Source: patient, family Mode of arrival: EMS Limitations: no limitations Nursing Notes Reviewed: Yes Vital Signs Reviewed: Yes - History of Present Illness HPI Narrative: Patient is a 77-year-old male with past medical history including COPD on occasional 2 L of oxygen at home as needed, atrial fibrillation, pacemaker, coronary artery disease with 8 stents placed, diabetes mellitus, CHF, who presents with a chief complaint of shortness of breath. Patient states mid afternoon he slowly developed worsening shortness of breath. In the evening his shortness of breath was worsening and he was having difficulty ambulating without getting short of breath. He is also unable to lay down without becoming short of breath. He took his albuterol at 2000 with no improvement. Also took a total of 140mg of lasix today. He denies chest pain, lower extremity swelling, abdominal pain, nausea, fevers, cough. He is presenting to the ED with worsening shortness of breath. Pain Scale: 0 - Related Data Home Medications Medication Instructions Recorded Confirmed Albuterol Sulfate [Albuterol 1 puff IH Q4H PRN 08/21/15 07/28/18 Inhaler] Atorvastatin Calcium [Lipitor] 20 mg PO 1700 08/21/15 07/28/18 Bupropion HCl [Wellbutrin Xl] 300 mg PO DAILY 08/21/15 07/28/18 Fluticasone/Salmeterol [Advair 1 puff IH BID 08/21/15 07/28/18 250-50 Diskus] Insulin Glargine,Hum.rec.anlog 60 unit SQ HS 08/21/15 07/28/18 [Lantus Solostar] Folic Acid 1 mg PO DAILY 12/18/15 07/28/18 Insulin LISPRO [Humalog] 15 unit SQ TIDWM 06/19/16 07/28/18 [place]-3/Dha/Epa/Fish Oil [Fish Oil 1 cap PO TID 12/04/16 07/28/18 1,000 mg Softgel] Oxygen 2 l NS HS PRN 12/04/16 07/28/18 Furosemide [Lasix] 20 mg PO DAILY 04/16/17 07/28/18 Magnesium Oxide [Magnesium] 400 mg PO BID 04/16/17 07/28/18 Ferrous Gluconate 324 mg PO BID 08/13/17 07/28/18 Aspirin [Adult Aspirin Regimen] 81 mg PO DAILY 01/06/18 07/28/18 Loratadine [Allergy Relief] 10 mg PO DAILY 04/15/18 07/28/18 Pantoprazole Sodium 40 mg PO DAILY 04/15/18 07/28/18 Tiotropium [Spiriva] 18 mcg IH DAILY 04/15/18 07/28/18 Cholecalciferol (Vitamin D3) 500 unit PO BID 05/11/18 07/28/18 [Vitamin D3] Docusate [Colace] 100 mg PO DAILY 05/11/18 07/28/18 Sertraline [Zoloft] 200 mg PO BID 05/11/18 07/28/18 Tamsulosin [Flomax] 0.4 mg PO DAILY 05/11/18 07/28/18 Ascorbic Acid [Vitamin C] 500 mg PO BID 07/28/18 07/28/18 Previous Rx's Medication Instructions Recorded Clopidogrel [Plavix] 75 mg PO DAILY #30 tablet 06/20/16 Potassium Chloride 10 meq PO DAILY #30 tab.er.prt 11/03/16 Metoprolol [Lopressor] 25 mg PO BID #60 tablet 05/12/17 Ipratropium/Albuterol Neb [Duoneb] 3 ml IH Q6HR 30 Days #120 vial.neb 05/14/18 Allergies Allergy/AdvReac Type Severity Reaction Status Date / Time codeine Allergy Difficulty Verified 07/25/18 09:58 Breathing Homatropine AdvReac Insomnia Verified 07/25/18 09:58 [From Homatropaire] hydrocodone AdvReac Insomnia Verified 07/25/18 09:58 All systems ED: reviewed and negative except as stated. Review of Systems: As Per HPI Constitutional: Denies: fever, chills Eyes: Denies: vision change ENT ED: Denies: throat pain, congestion Cardiovascular: Denies: chest pain, palpitations Respiratory: Reports: dyspnea, wheezes. Denies: cough Gastrointestinal: Denies: abdominal pain, nausea, diarrhea Genitourinary: Denies: dysuria Musculoskeletal: Denies: back pain Integumentary: Denies: rash Neurological: Denies: headache, weakness Allergic/Immunologic: Denies: itchy eyes Past Medical History - Past Medical History Attestation: Yes The following information was validated with the patient. Source: patient Medical history: Reports: atrial fibrillation, CHF, COPD, diabetes, hyperlipidemia, hypertension, myocardial infarction, renal disease Surgical history: Reports: angioplasty/stent, appendectomy, cancer surgery, cataract, cholecystectomy, herniorrhaphy, pacemaker Psychiatric history: Reports: anxiety, depression - Social History Smoking Status: Never smoker Smokeless Tobacco Status: No Alcohol use: Reports: none Drug use: Reports: none Physical Exam - General Limitations: no limitations General appearance: alert, in no apparent distress - Head Head exam: atraumatic, normocephalic - Eye Eye exam: Present: normal appearance, EOMI - ENT ENT exam: normal exam, mucous membranes moist - Respiratory Respiratory exam: Present: other (Conversational dyspnea diminished breath sounds bilaterally. Poor air movement. Mild expiratory wheezing bilaterally.) . Absent: accessory muscle use - Cardiovascular Cardiovascular exam: Present: regular rate, normal rhythm, other (Bilateral radial pulses are equal) - Abdominal Exam Abdominal exam: Present: soft, Non-Tender. Absent: guarding, rebound - Extremities Exam Extremities exam: Present: normal capillary refill. Absent: tenderness, pedal edema - Neurological Exam Neurological exam: Present: alert, oriented X3, CN II-XII intact - Psychiatric Psychiatric exam: Present: normal affect, normal mood - Skin Skin exam: Present: warm, dry. Absent: rash, cyanosis, diaphoresis, pallor Course Vital Signs Temperature 97.7 F 07/27/18 22:04 Pulse Rate 69 07/27/18 22:04 Respiratory Rate 22 07/27/18 22:04 Blood Pressure 148/85 07/27/18 22:04 O2 Sat by Pulse Oximetry 95 07/27/18 22:04 Temperature 97.9 F 07/28/18 01:25 Pulse Rate 98 07/28/18 04:25 Respiratory Rate 18 07/28/18 04:25 Blood Pressure 130/69 07/28/18 04:25 O2 Sat by Pulse Oximetry 93 07/28/18 04:25 Oxygen Delivery Oxygen Delivery Nasal Cannula Medical Decision Making - MDM Narrative Medical decision making narrative: Patient is presenting with shortness of breath. Currently he is oxygenating 94 % on 2 L per nasal cannula. He does have conversational dyspnea. His oxygen saturation drops to 86-88% while on the oxygen and while talking. Lung sounds are diminished bilaterally with mild expiratory wheezing. We will give him a DuoNeb treatment and methylprednisolone for his COPD exacerbation. Patient also has history of congestive heart failure and may be having an exacerbation of this as well. Also obtain chest x-ray, CBC, BMP, BNP, troponin to further evaluate the cause of his shortness of breath. 23:15 Upon reevaluation, the patient does not note any improvement after the DuoNeb treatment. He does have some more air movement on respiratory exam but still has wheezes. Conversational dyspnea is also improved. 23:45 Chest x-ray results reviewed. There is pulmonary congestion and a right-sided pleural effusion. CHF is worsened compared to the prior x-ray in June. Hospitalist consulted. Discussed patient case with him and he was accepted for further management. 40 mg IV Lasix was given. Patient states he feels some improvement in his breathing. No other complaints. - Lab Data Lab results reviewed: Yes I reviewed the patient's lab results. Result diagrams: 07/27/18 22:39 07/27/18 22:39 Lab Results 07/27/18 07/27/18 07/27/18 Range/Units 22:39 22:39 22:39 WBC 10.3 (4.3-11.1) K/mcL RBC 4.55 (4.19-5.50) M/mcL Hgb 12.0 L (12.9-16.9) g/dL Hct 38.6 (37.5-50.1) % MCV 84.8 (83.0-100.0) fL MCH 26.4 L (28.0-33.3) pg MCHC 31.1 L (31.6-35.5) g/dL RDW 17.6 H (11.5-14.5) % Plt Count 198 (140-400) K/mcL MPV 9.7 (9.4-12.4) fL Immature Gran % 0.4 (0-4) % Seg Neutrophils % 75.7 % Lymphocytes % 15.4 % Monocytes % 5.8 % Eosinophils % 2.1 % Basophils % 0.6 % Neutrophils # 7.8 (1.6-8.9) K/mcL Lymphocytes # 1.6 (0.6-4.6) K/mcL Monocytes # 0.6 (0.0-1.3) K/mcL Eosinophils # 0.2 (0.0-0.6) K/mcL Basophils # 0.1 (0.0-0.2) K/mcL Sodium 137 (136-145) mEq/L Potassium 4.2 (3.5-5.1) mEq/L Chloride 104 (98-107) mEq/L Carbon Dioxide 26 (23-29) mEq/L BUN 26 H (8-23) mg/dL Creatinine 1.24 (0.70-1.30) mg/dL Est GFR ( Amer) > 60 (> 60) Est GFR (Non-Af Amer) 56 L (> 60) BUN/Creatinine Ratio 21 (6-26) Glucose 115 H (70-105) mg/dL Calculated Osmolality 290 (280-300) Calcium 9.2 (8.6-10.3) mg/dL Troponin I 0.04 H* (< 0.04) ng/mL B-Natriuretic Peptide 406 H (Less than 100) pg/mL - Radiology Data Radiology results reviewed: Yes I reviewed the patient's radiology results. - EKG Data EKG #1 EKG attestation: Yes I reviewed and interpreted this EKG. EKG results narrative: EKG from 07/27/2018 at 2221 shows ventricular paced complexes. No ST elevation or depression. No evidence of acute ischemia. NV intervals 71. QT is 421. This is compared to patient's prior EKG on 06/28/2018. EKG is unchanged. Attestation Statement - Attestation Attestation: I examined this patient and my medical decision-making was reviewed with the Resident Physician. I agree with the documented findings, disposition and treatment plan as described except to the extent set forth below. Findings consistent with heart failure. We will diuresis, admitted for heart failure management as well as trending of serial cardiac biomarkers. Patient was ministered aspirin. He does have chronic troponin elevation.
[2018-07-27 23:15] LABS: BUN/Creatinine Ratio 21 (6-26); Blood Urea Nitrogen 26 mg/dL (8-23); Calcium 9.2 mg/dL (8.6-10.3); Carbon Dioxide 26 mEq/L (23-29); Chloride 104 mEq/L (98-107); Glucose 115 mg/dL (70-105); Osmolality,Calculated 290 (280-300); Potassium 4.2 mEq/L (3.5-5.1); Sodium 137 mEq/L (136-145); eGFR For Non-African Americans 56 (> 60)
[2018-07-27 23:19] LABS: Troponin I 0.04 ng/mL (< 0.04)
[2018-07-27] MEDS ORDERED: Furosemide 40 MG/4 ML VIAL IV ONE (23:45)
[2018-07-27] MEDS ORDERED: Furosemide 40 MG in 0.9 % Sodium Chloride 50 ML IVPB ONE (23:48)
[2018-07-28] MEDS ORDERED: Naloxone 0.4 MG/ML INJ IVP PRN (04:15)
[2018-07-28] MEDS ORDERED: D5% in Water 1,000 ML IVC PRN (04:25)
[2018-07-28] MEDS ORDERED: *HR* Dextrose 50 % in Water (Syg) 50 ML SYRINGE IVP PRN (04:25)
[2018-07-28] MEDS ORDERED: Dextrose Gel 15 GM/37.5 ML TUBE PO PRN ×2 (04:25)
--- NOTE | 2018-07-28 04:58 | Internal Med History&Physical ---
<Jose Diego - Last Filed: 07/28/18 04:49> Date of Encounter: 07/28/18 Time of Encounter: 04:49 Internal Medicine - H&P: HPI Chief complaint: sob Admitted From: Home Plans for Post Hospital Care: Home History of present illness: Mr. Vizcarra is a 77 year old male presents with cc of sob. Shortness of breath started yesterday morning which worsened with exertion and lying flat. Patient noticed that he had gained 4 pounds in the last 3 days. He has a history of diastolic congestive heart failure and is on a 1500 mL fluid restriction diet and low-salt diet. He denied fever, chills, sputum production. He reports cough. Last Wednesday patient reports having 3 slices of pizza with diet soda. Patient took additional dose of Lasix at home but this has not helped. He also has history of COPD and he tried using inhalers or nebulizer treatments but these did not work as well. Patient also reported becoming more weak, tired. Past Med Surg Social Fam HX - Past Medical History Medical history: atrial fibrillation, CHF, COPD, diabetes, hyperlipidemia, hypertension, myocardial infarction, renal disease Additional medical history: ANEMIA Psychiatric history: anxiety, depression - Past Surgical History Surgical History: angioplasty/stent, appendectomy, cancer surgery, cataract, cholecystectomy, herniorrhaphy, pacemaker Additional surgical history: 8 stents - Social History Smoking Status: Never smoker Smokeless Tobacco Status: No Alcohol use: none Drug use: none - Family History Mother Family Member Ethnicity: Non- Living Status: Hx Family Cardiac Disorders: Yes (HD) Brother Family Member Ethnicity: Non- Living Status: Still Living Hx Family Cardiac Disorders: Yes Hx Family Cancer: Yes (Leukemia) Hx Family Endocrine Disorder: Yes (DM) Sister Family Member Ethnicity: Non- Living Status: Hx Family Cardiac Disorders: Yes (HD) Hx Family Cancer: Yes Father Family Member Ethnicity: Non- Living Status: Hx Family Cardiac Disorders: Yes Hx Family Respiratory Disorders: No Hx Family Cancer: No Hx Family GI Disorders: No Hx Family Endocrine Disorder: Yes (DM) Hx Family Neuromuscular Disorders: No Hx Family Neurologic Disorders: Yes (stroke) Hx Family HEENT Disorders: No Hx Family Autoimmune Disorders: No Internal Medicine - H&P: Meds Albuterol Sulfate [Albuterol Inhaler] 1 puff IH Q4H PRN 08/21/15 [History] Atorvastatin Calcium [Lipitor] 20 mg PO 1700 08/21/15 [History] Bupropion HCl [Wellbutrin Xl] 300 mg PO DAILY 08/21/15 [History] Fluticasone/Salmeterol [Advair 250-50 Diskus] 1 puff IH BID 08/21/15 [History] Insulin Glargine,Hum.rec.anlog [Lantus Solostar] 60 unit SQ HS 08/21/15 [History ] Folic Acid 1 mg PO DAILY 12/18/15 [History] Insulin LISPRO [Humalog] 15 unit SQ TIDWM 06/19/16 [History] Clopidogrel [Plavix] 75 mg PO DAILY #30 tablet 06/20/16 [Rx] Potassium Chloride 10 meq PO DAILY #30 tab.er.prt 11/03/16 [Rx] [place]-3/Dha/Epa/Fish Oil [Fish Oil 1,000 mg Softgel] 1 cap PO TID 12/04/16 [ History] Oxygen 2 l NS HS PRN 12/04/16 [History] Furosemide [Lasix] 20 mg PO DAILY 04/16/17 [History] Magnesium Oxide [Magnesium] 400 mg PO BID 04/16/17 [History] Metoprolol [Lopressor] 25 mg PO BID #60 tablet 05/12/17 [Rx] Ferrous Gluconate 324 mg PO BID 08/13/17 [History] Aspirin [Adult Aspirin Regimen] 81 mg PO DAILY 01/06/18 [History] Loratadine [Allergy Relief] 10 mg PO DAILY 04/15/18 [History] Pantoprazole Sodium 40 mg PO DAILY 04/15/18 [History] Tiotropium [Spiriva] 18 mcg IH DAILY 04/15/18 [History] Cholecalciferol (Vitamin D3) [Vitamin D3] 500 unit PO BID 05/11/18 [History] Docusate [Colace] 100 mg PO DAILY 05/11/18 [History] Sertraline [Zoloft] 200 mg PO BID 05/11/18 [History] Tamsulosin [Flomax] 0.4 mg PO DAILY 05/11/18 [History] Ipratropium/Albuterol Neb [Duoneb] 3 ml IH Q6HR 30 Days #120 vial.neb 05/14/18 [ Rx] Ascorbic Acid [Vitamin C] 500 mg PO BID 07/28/18 [History] 3 Allergy/AdvReac Type Severity Reaction Status Date / Time codeine Allergy Difficulty Verified 07/25/18 09:58 Breathing Homatropine AdvReac Insomnia Verified 07/25/18 09:58 [From Homatropaire] hydrocodone AdvReac Insomnia Verified 07/25/18 09:58 All Systems PM: A 10-system review of systems was performed and is negative for pertinent findings except as documented above in the HPI. Review of systems: Constitutional: Denies fever, chills reports fatigue HEENT: Denies headache, trauma, blurry vision, eye discharge, ear pain, ear discharge neck pain, sore throat, rhinorrhea Heart: Denies chest pain palpitations, reports mild LE edema. Reports weight gain Lungs: Poor shortness of breath, cough Abdomen: Denies abdominal pain nausea vomiting diarrhea MSK: Denies back pain, falls, joint pain Kidney: Denies dysuria, hematuria Skin: Denies rash, ulcers Neuro: Denies numbness and tingling Psych: denies axniety, depression - Constitutional Vitals: Temp Pulse Resp BP Pulse Ox 97.9 F 74 20 119/77 93 07/28/18 01:25 07/28/18 01:25 07/28/18 01:25 07/28/18 01:25 07/28/18 01:25 Exam: General: pleasant, without distress HEENT: Head atraumatic, normocephalic, EOMI, PERRL, absent ear discharge or trauma, Moist Mucous Membranes, uvula midline Neck: nontender to palpation, absent lymphadenopathy, Cardiovascualr: Regular rate and rhythm with no murmur, absent gallops or rubs, mild pedal edema bilaterally, radial pulses 2 out of 4 Lungs: And expiratory wheezing, tight, diminished throughout. Skin mild restrictive distress Abdomen: Soft nontender, nondistended positive bowel sounds, absent hepatomegaly Skin: warm and dry, absent rash, absent open wounds and nodules MSK: absent clubbing, cyanosis, joints without swelling Neuro: Cranial nerves II through XII intact, UE and LE sensation equal bilaterally, UE and LEstrength 5/5, alert oriented 3, Psych: good insight and judgment, anxious Internal Med - H&P Results - Labs CBC & Chem 7: 07/27/18 22:39 07/27/18 22:39 - Assessment and plan (1) Acute hypoxemic respiratory failure Current Visit: Yes Status: Acute Assessment and plan: Secondary to CHF and COPD exacerbation Chest x-ray shows enlarged heart, moderate pulmonary vascular congestion, right- sided pleural effusion and worsening since chest x-ray on June 2018 Requiring supplemental oxygen We will schedule DuoNeb's Telemetry, continuous pulse ox (2) Acute diastolic CHF (congestive heart failure), NYHA class 3 Current Visit: Yes Status: Acute Assessment and plan: Acute on chronic congestive heart failure Patient has worsening shortness of breath requiring oxygen supplementation Symptoms improved with IV Lasix in the emergency department chest x-ray shows pulmonary edema BNP 406, not different than before Echocardiogram on January 2018 showed EF of 55-60% with moderate pulmonary hypertension and diastolic dysfunction Plan: Fluid restriction of 1200 mL, cardiac diet, IV Lasix. Likely can transition to by mouth Lasix tomorrow. Patient will need proper education on diet and fluid restriction. (3) COPD (chronic obstructive pulmonary disease) Current Visit: Yes Status: Acute Assessment and plan: Patient did not complain of wheezing but does have cough and worsening shortness of breath On lung exam patient has an expiratory wheezing, and his rate type with diminished inspiratory effort Patient will benefit from scheduled DuoNeb's and IV steroids. Qualifiers: COPD type: COPD with acute exacerbation Qualified Code(s): J44.1 - Chronic obstructive pulmonary disease with (acute) exacerbation (4) Diabetes mellitus Current Visit: Yes Status: Chronic Assessment and plan: Patient has insulin-dependent dependent diabetes mellitus His last hemoglobin A1c was 8.2 We will start patient on weight-based insulin regimen with low-dose sliding scale insulin and diabetic diet. Qualifiers: Diabetes mellitus type: type 2 Diabetes mellitus group home insulin use: with group home use Diabetes mellitus complication status: with kidney complications Diabetes mellitus complication detail: with chronic kidney disease Chronic kidney disease stage: stage 2 (mild) Qualified Code(s): E11.22 - Type 2 diabetes mellitus with diabetic chronic kidney disease; N18.2 - Chronic kidney disease, stage 2 (mild); Z79.4 - FPC (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 insulin (5) CAD (coronary artery disease), [place] coronary artery Current Visit: Yes Status: Chronic Assessment and plan: Patient has a history of coronary artery disease status post PCI Denies chest pain We will continue aspirin and atorvastatin, metoprolol, Plavix. Qualifiers: [place] vs. transplanted heart: [place] heart Associated angina: without angina Qualified Code(s): I25.10 - Atherosclerotic heart disease of [place] coronary artery without angina pectoris (6) Elevated troponin Current Visit: Yes Status: Acute Assessment and plan: Patient presented with elevated troponin Likely secondary to demand ischemia in the setting of CHF and COPD exacerbation EKG is paced rhythm with no ST elevation or depressions Patient denies chest pain We will trend troponin - Time Spent With Patient Total time spent is greater than 50% in coordination of care (as documented) at patient's floor/unit and/or counseling patient: <Nicholas Garcia - Last Filed: 07/28/18 06:58> Date of Encounter: 07/28/18 Time of Encounter: 06:15 - Constitutional Constitutional: no chills, no fever(s), no night sweats - EENT Eyes: no blurry vision, no change in vision Ears: no ear pain Nose, mouth and throat: no nasal congestion, no sore throat - Cardiovascular Cardiovascular ROS IM: dyspnea, dyspnea on exertion, edema, orthopnea, no chest pain - Respiratory Respiratory: cough, dyspnea, wheezing, no hemoptysis, no excessive phlegm production, no change in phlegm color - Gastrointestinal Gastrointestinal: no abdominal pain, no diarrhea, no hematochezia, no melena, no vomiting - Genitourinary Genitourinary ROS male: no dysuria, no flank pain, no hematuria - Musculoskeletal Musculoskeletal ROS IM: no arthralgias, no back pain - Integumentary Integumentary IM: no rash, no jaundice - Neurological Neurological ROS: no dizziness, no focal weakness, no frequent falls, no headache(s) - Psychiatric Psychiatric: no anxiety, no depression - Endocrine Endocrine IM: no polydipsia, no polyuria - Allergic/Immunologic Allergic/Immunologic: wheezing - Constitutional Vitals: Temp Pulse Resp BP Pulse Ox 97.9 F 98 18 130/69 93 07/28/18 01:25 07/28/18 04:25 07/28/18 04:25 07/28/18 04:25 07/28/18 04:25 General appearance: Present: cooperative, A&O X 3, pleasant, answers questions appropriately - Head Head exam: Present: normal inspection - Eye Eye exam: Present: EOMI, PERRL. Absent: scleral icterus Pupils: Present: normal accommodation - ENT ENT exam: Present: mucous membranes dry, normal exam, normal oropharynx - Neck Neck exam general surgery: Present: supple. Absent: tenderness, nuchal rigidity , thyromegaly - Respiratory Respiratory exam: Present: prolonged expiratory phase, respiratory distress ( mild), rhonchi, wheezes, tachypnea. Absent: chest wall tenderness, rales - Cardiovascular Cardiovascular exam: Present: distant heart sounds, RRR, +S1, +S2. Absent: diastolic murmur, JVD, systolic murmur - GI/Abdominal GI/Abdominal exam: Present: normal bowel sounds, soft. Absent: guarding, hepatomegaly, rebound, splenomegaly, tenderness - Extremities Exam Extremities exam: Present: full ROM, normal capillary refill, pedal edema (trace ), warm, radial pulses palpable and symmetrical. Absent: calf tenderness, joint swelling - Back Exam Back exam: Absent: CVA tenderness (L), CVA tenderness (R) - Neurological Exam Neurological exam: Present: alert, CN II-XII intact, oriented X3, no focal deficits - Psychiatric Psychiatric exam: Present: normal affect, normal mood - Skin Skin exam: Present: dry, intact, warm Internal Med - H&P Results - Labs CBC & Chem 7: 07/27/18 22:39 07/27/18 22:39 Labs: Cardiac Enzymes 07/28/18 Range/Units 05:16 Troponin I 0.03 (< 0.04) ng/mL - EKG Data -: EKG Interpreted by Myself - EKG Data Prior EKG available for review: no EKG comments: 07/28/18 06:39 AV paced rhythm - Diagnostic Studies Chest x-ray Status: image reviewed by me (CHF findings) - Assessment and plan (1) Acute hypoxemic respiratory failure Current Visit: Yes Status: Acute (2) COPD (chronic obstructive pulmonary disease) Current Visit: Yes Status: Acute Qualifiers: COPD type: COPD with acute exacerbation Qualified Code(s): J44.1 - Chronic obstructive pulmonary disease with (acute) exacerbation (3) Diabetes mellitus Current Visit: Yes Status: Chronic Qualifiers: Diabetes mellitus type: type 2 Diabetes mellitus termite helper insulin use: with termite helper use Diabetes mellitus complication status: with kidney complications Diabetes mellitus complication detail: with chronic kidney disease Chronic kidney disease stage: stage 2 (mild) Qualified Code(s): E11.22 - Type 2 diabetes mellitus with diabetic chronic kidney disease; N18.2 - Chronic kidney disease, stage 2 (mild); Z79.4 - FPC (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 insulin (4) Acute diastolic CHF (congestive heart failure), NYHA class 3 Current Visit: Yes Status: Acute (5) CAD (coronary artery disease), [place] coronary artery Current Visit: Yes Status: Chronic Qualifiers: [place] vs. transplanted heart: [place] heart Associated angina: without angina Qualified Code(s): I25.10 - Atherosclerotic heart disease of [place] coronary artery without angina pectoris (6) Elevated troponin Current Visit: Yes Status: Acute - Time Spent With Patient Total time spent is greater than 50% in coordination of care (as documented) at patient's floor/unit and/or counseling patient: - Attending Attestation I discussed the patient CHITIMACHA, past medical history, review of systems, lab data , and exam findings with Dr. Diego. I personally reviewed his x-ray and his EKG as well. I then saw and examined patient independently. Patient has minimal edema now and feels a little bit better after some diuresis with Lasix. On history, he has symptoms more suggestive of COPD and CHF. However, he did have some weight gain as noted above. He denies any fevers, chills, or productive cough. He has had a dry cough, wheezing, and worsening dyspnea. He denies any chest pain or chest tightness presently. He has had no ill contact exposure. We will diurese him with a little more IV Lasix and then resume home dosing. Meanwhile, we'll treat him for COPD exacerbation and monitor him closely. At this time, I do not suspect an infectious source and thus do not recommend antibiotics at this time. Should his clinical course dictate otherwise, we will initiate antibiotics and further treatment as indicated. Other than my comments above and noted physical exam findings, I agree with Dr. Diego's assessment and plan.
[2018-07-28 05:55] LABS: Troponin I 0.03 ng/mL (< 0.04)
[2018-07-28] MEDS: *HR* Heparin 5,000 UNIT/ML VIAL SQ SCH ×3 (06:07→21:07)
[2018-07-28 06:43] LABS: BUN/Creatinine Ratio 22 (6-26); Blood Urea Nitrogen 29 mg/dL (8-23); Calcium 9.1 mg/dL (8.6-10.3); Carbon Dioxide 26 mEq/L (23-29); Chloride 102 mEq/L (98-107); Glucose 254 mg/dL (70-105); Osmolality,Calculated 300 (280-300); Potassium 4.3 mEq/L (3.5-5.1); Sodium 138 mEq/L (136-145); eGFR For Non-African Americans 54 (> 60)
[2018-07-28] MEDS: Ipratropium/Albuterol Neb 3 ML IH SCH ×5 (07:31→23:31)
[2018-07-28] MEDS: Budesonide/Formoterol 80/4.5 MDI IH SCH ×2 (07:31→19:42)
[2018-07-28] MEDS: Loratadine 10 MG TABLET PO SCH (08:00)
[2018-07-28] MEDS: MethylPREDNISolone 40 MG/ML VIAL IVP SCH ×2 (08:00→16:49)
[2018-07-28] MEDS: Aspirin Enteric Coated 81 MG Tablet PO SCH (08:00)
[2018-07-28] MEDS: BuPROPion XL (24 HR) 150 MG TABLET PO SCH (08:01)
[2018-07-28] MEDS: Insulin LISPRO 300 UNITS/3 ML VIAL SQ SCH ×7 (08:01→21:44)
[2018-07-28] MEDS ORDERED: Furosemide 40 MG/4 ML VIAL IVP ONE (09:00)
[2018-07-28] MEDS ORDERED: Furosemide 40 MG/4 ML VIAL IVP SCH (09:00)
--- NOTE | 2018-07-28 10:07 | Internal Med Progress Note ---
<Jorge Taveras - Last Filed: 07/28/18 16:41> Hospitalist Progress Note - Encounter Date of Encounter: 07/28/18 Time of Encounter: 10:02 - Subjective Interval History: Patient presented with dyspnea on exertion and orthopnea He has a history of COPD and CHF Based on presentation this is likely combined CHF and COPD exacerbation He was started on bronchodilators, IV steroids, and Lasix He states his shortness of breath is much improved today - Exam Vitals: Temp Pulse Resp BP Pulse Ox 97.9 F 95 16 96/67 95 07/28/18 07:35 07/28/18 07:35 07/28/18 07:35 07/28/18 07:35 07/28/18 07:35 Exam: Patient in no acute distress, alert and oriented x 3 Cranial nerves 2-12 intact Heart in regular rate and irregular rhythm, no murmur or gallop Lungs exhibit diffuse scattered wheeze and rales, diminished lung sounds, no rhonchi Abdomen soft and non tender with normal bowel sounds, guarding present 1+ pitting edema present in bilateral lower extremities Skin war and dry - Assessment and Plan (1) Acute diastolic CHF (congestive heart failure), NYHA class 3 Current Visit: Yes Status: Acute Assessment and Plan: Acute on chronic congestive heart failure with preserved ejection fraction Patient had worsening shortness of breath requiring oxygen supplementation Symptoms improved with IV Lasix in the emergency department chest x-ray showed pulmonary edema BNP 406, not different than before Echocardiogram on January 2018 showed EF of 55-60% with moderate pulmonary hypertension and diastolic dysfunction Plan: Fluid restriction of 1200 mL, cardiac diet, IV Lasix. Transitioned to PO lasix diuresis Patient will need proper education on diet and fluid restriction. (2) COPD (chronic obstructive pulmonary disease) Current Visit: Yes Status: Acute Assessment and Plan: Patient did not complain of wheezing but did have cough and worsening shortness of breath He did complain of yellow sputum production today On lung exam patient has diffuse scattered wheeze and rales Patient will benefit from scheduled DuoNeb's, symbicort, and IV steroids. Plan is to treat to improvement of shortness of breath and lung exam (3) Diabetes mellitus Current Visit: Yes Status: Chronic Assessment and Plan: Patient has insulin-dependent dependent diabetes mellitus His last hemoglobin A1c was 8.2 Patient on weight-based insulin regimen with low-dose sliding scale insulin and diabetic diet. Will consider insulin escalation based on trending glucose Glucose stable and being monitored (4) CAD (coronary artery disease), [place] coronary artery Current Visit: Yes Status: Chronic Assessment and Plan: Patient has a history of coronary artery disease status post PCI Denies chest pain We will continue aspirin and atorvastatin, metoprolol, Plavix. Continuous cardiac monitoring (5) Elevated troponin Current Visit: Yes Status: Acute Assessment and Plan: Patient presented with elevated troponin Likely secondary to demand ischemia in the setting of CHF and COPD exacerbation EKG is paced rhythm with no ST elevation or depressions Patient denies chest pain Troponin trended and flat at 0.03 Will continue to monitor (6) Anxiety and depression Current Visit: Yes Status: Chronic Assessment and Plan: Continuing home medication wellbutrin (7) Acute on chronic respiratory failure with hypoxemia Current Visit: Yes Status: Acute Assessment and Plan: Secondary to CHF and COPD exacerbation Chest x-ray shows enlarged heart, moderate pulmonary vascular congestion, right- sided pleural effusion and worsening since chest x-ray on June 2018 Requiring supplemental oxygen 2L which he uses at home scheduled DuoNeb's and symbicort, IV solumedrol 40mg q8hr, 40mg PO lasix BID Telemetry, continuous pulse ox Patient also likely has underlying sleep apnea, he has refused previous sleep study referral Plan of care to titrate treatment to improvement of subjective and objective clinical disposition DVT Prophylaxis: heparin 5000 units sq q8hr - Time Spent with Patient Total time spent is greater than 50% in coordination of care (as documented) at patient's floor/unit and/or counseling patient: Internal Medicine: Result - Labs CBC & Chem 7: 07/27/18 22:39 07/28/18 05:16 Labs: BMP 07/28/18 05:16 Sodium 138 Potassium 4.3 Chloride 102 Carbon Dioxide 26 BUN 29 H Creatinine 1.29 Glucose 254 H Calcium 9.1 Cardiac Enzymes 07/28/18 Range/Units 05:16 Troponin I 0.03 (< 0.04) ng/mL Consult Discharge Plan - Plan Referrals: Jose Seymour DO [Primary Care Provider] - <Hardeep Bolden - Last Filed: 07/28/18 17:04> Hospitalist Progress Note - Encounter Date of Encounter: 07/28/18 - Exam Vitals: Temp Pulse Resp BP Pulse Ox 97.8 F 95 16 125/89 94 07/28/18 10:57 07/28/18 10:57 07/28/18 16:05 07/28/18 10:57 07/28/18 16:05 - Assessment and Plan (1) COPD (chronic obstructive pulmonary disease) Current Visit: Yes Status: Acute (2) Diabetes mellitus Current Visit: Yes Status: Chronic (3) Acute diastolic CHF (congestive heart failure), NYHA class 3 Current Visit: Yes Status: Acute (4) CAD (coronary artery disease), [place] coronary artery Current Visit: Yes Status: Chronic (5) Elevated troponin Current Visit: Yes Status: Acute (6) Anxiety and depression Current Visit: Yes Status: Chronic (7) Acute on chronic respiratory failure with hypoxemia Current Visit: Yes Status: Acute - Time Spent with Patient Total time spent is greater than 50% in coordination of care (as documented) at patient's floor/unit and/or counseling patient: Internal Medicine: Result - Labs CBC & Chem 7: 07/27/18 22:39 07/28/18 05:16 - Attending Attestation I examined this patient and my medical decision-making was reviewed with the Resident Physician Dr. Taveras. I agree with the documented findings, disposition and treatment plan as described except to the extent set forth below. Mr. Vizcarra is a 77 y/o M with known PMH of atrial fibrillation, CHF, COPD, diabetes, hyperlipidemia, hypertension, myocardial infarction and chronic nocturnal home O2 dependent pt admitted in the hospital for worsening SOB due to COPD exacerbation and mild CHF exacerbation. Pt was started on IV steroids and IV lasix. He states he is feeling little better today. No cough. Still has moderate SOB and [place] Gen: A, A, O x3 chest: Diminished BS bl, moderate to severe wheezing, mild rales Heart: S1S2+ a/p 1. Acute COPD exacerbation 2. acute on chronic hypoxic resp failure Duoneb and IV steroids O2 3. Acute on chronic diastolic CHF exacerbation IV Lasix cont close monitoring <NitinJorge Rees - Last Filed: 07/28/18 16:41> (2) COPD (chronic obstructive pulmonary disease) Qualifiers: COPD type: COPD with acute exacerbation Qualified Code(s): J44.1 - Chronic obstructive pulmonary disease with (acute) exacerbation (3) Diabetes mellitus Qualifiers: Diabetes mellitus type: type 2 Diabetes mellitus terminal superintendent insulin use: with assisted use Diabetes mellitus complication status: with kidney complications Diabetes mellitus complication detail: with chronic kidney disease Chronic kidney disease stage: stage 2 (mild) Qualified Code(s): E11.22 - Type 2 diabetes mellitus with diabetic chronic kidney disease; N18.2 - Chronic kidney disease, stage 2 (mild); Z79.4 - salvage determiner (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 insulin (4) CAD (coronary artery disease), [place] coronary artery Qualifiers: [place] vs. transplanted heart: [place] heart Associated angina: without angina Qualified Code(s): I25.10 - Atherosclerotic heart disease of [place] coronary artery without angina pectoris <Hardeep Bolden - Last Filed: 07/28/18 17:04> (1) COPD (chronic obstructive pulmonary disease) Qualifiers: COPD type: COPD with acute exacerbation Qualified Code(s): J44.1 - Chronic obstructive pulmonary disease with (acute) exacerbation (2) Diabetes mellitus Qualifiers: Diabetes mellitus type: type 2 Diabetes mellitus terminal superintendent insulin use: with terminal superintendent use Diabetes mellitus complication status: with kidney complications Diabetes mellitus complication detail: with chronic kidney disease Chronic kidney disease stage: stage 2 (mild) Qualified Code(s): E11.22 - Type 2 diabetes mellitus with diabetic chronic kidney disease; N18.2 - Chronic kidney disease, stage 2 (mild); Z79.4 - [facility] (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 insulin (4) CAD (coronary artery disease), [place] coronary artery Qualifiers: [place] vs. transplanted heart: [place] heart Associated angina: without angina Qualified Code(s): I25.10 - Atherosclerotic heart disease of [place] coronary artery without angina pectoris
[2018-07-28] MEDS: Insulin DETEMIR 100 UNIT/ML X5UNITS SQ SCH (21:43)
[2018-07-28] MEDS ORDERED: Mag Hydrox/Al Hydrox/Simeth 30 ML UDC PO PRN (23:04)
[2018-07-29] MEDS: MethylPREDNISolone 40 MG/ML VIAL IVP SCH ×2 (00:16→09:42)
[2018-07-29] MEDS: Ipratropium/Albuterol Neb 3 ML IH SCH ×5 (03:39→20:39)
[2018-07-29 04:59] LABS: Basophils % 0.1 %; Hemoglobin 11.3 g/dL (12.9-16.9); Immature Granulocytes % 0.4 % (0-4); Lymphocytes # 0.7 K/mcL (0.6-4.6); Lymphocytes % 7.3 %; Mean Corpuscular HGB Conc 30.5 g/dL (31.6-35.5); Mean Corpuscular Hemoglobin 25.5 pg (28.0-33.3); Mean Corpuscular Volume 83.5 fL (83.0-100.0); Mean Platelet Volume 10.2 fL (9.4-12.4); Monocytes # 0.3 K/mcL (0.0-1.3); Monocytes % 2.7 %; Neutrophils # 8.7 K/mcL (1.6-8.9); Platelet Count 200 K/mcL (140-400); Red Blood Count 4.43 M/mcL (4.19-5.50); Red Cell Distribution Width 17.8 % (11.5-14.5); Segmented Neutrophils % 89.5 %
[2018-07-29] MEDS: *HR* Heparin 5,000 UNIT/ML VIAL SQ SCH ×3 (05:12→21:28)
[2018-07-29 05:26] LABS: BUN/Creatinine Ratio 32 (6-26); Blood Urea Nitrogen 41 mg/dL (8-23); Calcium 9.4 mg/dL (8.6-10.3); Carbon Dioxide 27 mEq/L (23-29); Chloride 99 mEq/L (98-107); Glucose 232 mg/dL (70-105); Magnesium 2.2 mg/dL (1.6-2.6); Osmolality,Calculated 302 (280-300); Potassium 4.1 mEq/L (3.5-5.1); Sodium 137 mEq/L (136-145); eGFR For Non-African Americans 54 (> 60)
[2018-07-29] MEDS: Budesonide/Formoterol 80/4.5 MDI IH SCH ×2 (07:43→20:40)
[2018-07-29] MEDS ORDERED: Furosemide 20 MG/2 ML VIAL IVP SCH (09:00)
[2018-07-29] MEDS: BuPROPion XL (24 HR) 150 MG TABLET PO SCH (09:42)
[2018-07-29] MEDS: Loratadine 10 MG TABLET PO SCH (09:42)
[2018-07-29] MEDS: Insulin LISPRO 300 UNITS/3 ML VIAL SQ SCH ×7 (09:43→21:40)
[2018-07-29] MEDS: Aspirin Enteric Coated 81 MG Tablet PO SCH (09:43)
[2018-07-29] MEDS ORDERED: Isovue-370 500 ML INFUS..BTL IV ONE (13:42)
--- NOTE | 2018-07-29 16:10 | Internal Med Progress Note ---
<Jorge Taveras - Last Filed: 07/29/18 16:07> Hospitalist Progress Note - Encounter Date of Encounter: 07/29/18 Time of Encounter: 16:07 - Subjective Interval History: Patient presented with dyspnea on exertion and orthopnea He has a history of COPD and CHF Based on presentation this is likely combined CHF and COPD exacerbation He was started on bronchodilators, IV steroids, and Lasix He states his shortness of breath is much improved today He does also complain of abdominal pain though - Exam Vitals: Temp Pulse Resp BP Pulse Ox 97.9 F 82 19 136/76 96 07/29/18 07:12 07/29/18 11:41 07/29/18 11:41 07/29/18 11:41 07/29/18 11:41 Exam: Patient in no acute distress, alert and oriented x 3 Cranial nerves 2-12 intact Heart in regular rate and irregular rhythm, no murmur or gallop Lungs exhibit diffuse scattered wheeze, no rales, diminished lung sounds, no rhonchi Abdomen firm and distended and tender with normal bowel sounds, guarding present 1+ pitting edema present in bilateral lower extremities Skin war and dry - Assessment and Plan (1) Acute on chronic respiratory failure with hypoxemia Current Visit: Yes Status: Acute Assessment and Plan: Secondary to CHF and COPD exacerbation Physical exam indicates CHF resolution with latent COPD exacerbation Chest x-ray shows enlarged heart, moderate pulmonary vascular congestion, right- sided pleural effusion and worsening since chest x-ray on June 2018 Requiring supplemental oxygen 2L which he uses at home scheduled DuoNeb's and symbicort, prednisone PO 40mg BID, 40mg PO lasix BID Telemetry, continuous pulse ox Patient also likely has underlying sleep apnea, he has refused previous sleep study referral Plan of care to titrate treatment to improvement of subjective and objective clinical disposition (2) Pneumonia Current Visit: Yes Status: Acute Assessment and Plan: Small pleural effusion found incidentally on Abdominal CT May represent community acquired pneumonia Patient not septic, hemodynamically stable, no white count Plan Levofloxacin 750mg PO daily (3) Acute diastolic CHF (congestive heart failure), NYHA class 3 Current Visit: Yes Status: Resolved Assessment and Plan: Acute on chronic congestive heart failure with preserved ejection fraction Patient had worsening shortness of breath requiring oxygen supplementation Symptoms improved with IV Lasix in the emergency department chest x-ray showed pulmonary edema BNP 406, not different than before Echocardiogram on January 2018 showed EF of 55-60% with moderate pulmonary hypertension and diastolic dysfunction Plan: Likely resolved, improved subjective and objective Fluid restriction of 1200 mL, cardiac diet, PO Lasix. Patient will need proper education on diet and fluid restriction. (4) COPD (chronic obstructive pulmonary disease) Current Visit: Yes Status: Acute Assessment and Plan: Patient did not complain of wheezing but did have cough and worsening shortness of breath On lung exam patient has diffuse scattered wheeze Plan Patient will benefit from scheduled DuoNeb's, symbicort, and IV steroids. Plan is to treat to improvement of shortness of breath and lung exam (5) Diabetes mellitus Current Visit: Yes Status: Chronic Assessment and Plan: Patient has insulin-dependent dependent diabetes mellitus His last hemoglobin A1c was 8.2 Patient on weight-based insulin regimen with low-dose sliding scale insulin and diabetic diet. Will consider insulin escalation based on trending glucose Glucose stable and being monitored (6) CAD (coronary artery disease), [place] coronary artery Current Visit: Yes Status: Chronic Assessment and Plan: Patient has a history of coronary artery disease status post PCI Denies chest pain We will continue aspirin and atorvastatin, metoprolol, Plavix. Continuous cardiac monitoring (7) Elevated troponin Current Visit: Yes Status: Resolved Assessment and Plan: Patient presented with elevated troponin Likely secondary to demand ischemia in the setting of CHF and COPD exacerbation EKG is paced rhythm with no ST elevation or depressions Patient denies chest pain Troponin trended and flat at 0.03 Will continue to monitor (8) Anxiety and depression Current Visit: Yes Status: Chronic Assessment and Plan: Continuing home medication wellbutrin (9) Abnormal CT of the abdomen Current Visit: Yes Status: Acute Assessment and Plan: CT abdomen performed for abnormal physical exam Pancreatic fat stranding Nodular liver, anasarca Patient with remote history of alcohol abuse, quit 10 years ago but was drinking excessively prior Bladder stone measuring 9mm and BPH Plan Lipase CMP Liver US Bladder Scan UA - Time Spent with Patient Total time spent is greater than 50% in coordination of care (as documented) at patient's floor/unit and/or counseling patient: Internal Medicine: Result - Labs CBC & Chem 7: 07/29/18 03:37 07/29/18 03:37 Labs: Short CBC 07/29/18 Range/Units 03:37 WBC 9.8 (4.3-11.1) K/mcL Hgb 11.3 L (12.9-16.9) g/dL Hct 37.0 L (37.5-50.1) % Plt Count 200 (140-400) K/mcL Neutrophils # 8.7 (1.6-8.9) K/mcL BMP 07/29/18 03:37 Sodium 137 Potassium 4.1 Chloride 99 Carbon Dioxide 27 BUN 41 H Creatinine 1.28 Glucose 232 H Calcium 9.4 - Impressions Impressions Abdomen/Pelvis CT 07/29/18 13:30 IMPRESSION: Mild stranding surrounding the pancreas, which can can be seen with pancreatitis. Correlate with lipase. Nodular contour of the liver is suggestive of cirrhosis. Small right-sided effusion and associated airspace disease which could represent atelectasis or superimposed pneumonia. Bladder calculus now measures up to 9 mm. Stranding in the anterior abdominal soft tissues could represent mild anasarca or cellulitis. D/ / Willie Lynn MD / Willie Lynn MD Interpreting Provider: Willie Lynn MD Consult Discharge Plan - Plan Referrals: Jose Seymour DO [Primary Care Provider] - <Hardeep Bolden - Last Filed: 07/29/18 16:50> Hospitalist Progress Note - Encounter Date of Encounter: 07/29/18 - Exam Vitals: Temp Pulse Resp BP Pulse Ox 97.9 F 82 16 136/76 96 07/29/18 07:12 07/29/18 11:41 07/29/18 16:01 07/29/18 11:41 07/29/18 16:01 - Assessment and Plan (1) COPD (chronic obstructive pulmonary disease) Current Visit: Yes Status: Acute (2) Diabetes mellitus Current Visit: Yes Status: Chronic (3) Acute diastolic CHF (congestive heart failure), NYHA class 3 Current Visit: Yes Status: Resolved (4) CAD (coronary artery disease), [place] coronary artery Current Visit: Yes Status: Chronic (5) Elevated troponin Current Visit: Yes Status: Resolved (6) Anxiety and depression Current Visit: Yes Status: Chronic (7) Acute on chronic respiratory failure with hypoxemia Current Visit: Yes Status: Acute (8) Pneumonia Current Visit: Yes Status: Acute (9) Abnormal CT of the abdomen Current Visit: Yes Status: Acute - Time Spent with Patient Total time spent is greater than 50% in coordination of care (as documented) at patient's floor/unit and/or counseling patient: Internal Medicine: Result - Labs CBC & Chem 7: 07/29/18 03:37 07/29/18 03:37 Labs: Short CBC 07/29/18 Range/Units 03:37 WBC 9.8 (4.3-11.1) K/mcL Hgb 11.3 L (12.9-16.9) g/dL Hct 37.0 L (37.5-50.1) % Plt Count 200 (140-400) K/mcL Neutrophils # 8.7 (1.6-8.9) K/mcL BMP 07/29/18 03:37 Sodium 137 Potassium 4.1 Chloride 99 Carbon Dioxide 27 BUN 41 H Creatinine 1.28 Glucose 232 H Calcium 9.4 - Impressions Impressions Abdomen/Pelvis CT 07/29/18 13:30 IMPRESSION: Mild stranding surrounding the pancreas, which can can be seen with pancreatitis. Correlate with lipase. Nodular contour of the liver is suggestive of cirrhosis. Small right-sided effusion and associated airspace disease which could represent atelectasis or superimposed pneumonia. Bladder calculus now measures up to 9 mm. Stranding in the anterior abdominal soft tissues could represent mild anasarca or cellulitis. D/ / Willie Lynn MD / Willie Lynn MD Interpreting Provider: Willie Lynn MD - Attending Attestation I examined this patient and my medical decision-making was reviewed with the Resident Physician Dr. Taveras. I agree with the documented findings, disposition and treatment plan as described except to the extent set forth below. Mr. Vizcarra is a 77 y/o M with known PMH of atrial fibrillation, CHF, COPD, diabetes, hyperlipidemia, hypertension, myocardial infarction and chronic nocturnal home O2 dependent pt admitted in the hospital for worsening SOB due to COPD exacerbation and mild CHF exacerbation. Pt was started on IV steroids and IV lasix. He states he is feeling little better today. No cough. SOB and [place] also better. However he dos c/o vague abdominal discomfort and urinary incontinence. Gen: A, A, O x3 chest: Diminished BS bl, moderate to severe wheezing, mild rales Heart: S1S2+ Abd: Mild discomfort erlin umbelicla and supra pubic region a/p 1. Acute COPD exacerbation 2. acute on chronic hypoxic resp failure Duoneb and IV steroids O2 3. Pneumonia - bacterial started on empirical abx Levofloxacin 4. Acute on chronic diastolic CHF exacerbation Improved.. switched to PO lasix 5. Abdominal pain 6. Acute pancreatitis 7. Cirrhosis of liver 8. h/o Alcohol abuse Reviewed CT of Abd showed pancreatitis check liapse level cont close monitoring will obtain U/S of Liver and LFT's <Jorge Taveras - Last Filed: 07/29/18 16:07> (2) Pneumonia Qualifiers: Pneumonia type: due to unspecified organism Laterality: right Lung location : lower lobe of lung Qualified Code(s): J18.1 - Lobar pneumonia, unspecified organism (4) COPD (chronic obstructive pulmonary disease) Qualifiers: COPD type: COPD with acute exacerbation Qualified Code(s): J44.1 - Chronic obstructive pulmonary disease with (acute) exacerbation (5) Diabetes mellitus Qualifiers: Diabetes mellitus type: type 2 Diabetes mellitus senior living insulin use: with senior living use Diabetes mellitus complication status: with kidney complications Diabetes mellitus complication detail: with chronic kidney disease Chronic kidney disease stage: stage 2 (mild) Qualified Code(s): E11.22 - Type 2 diabetes mellitus with diabetic chronic kidney disease; N18.2 - Chronic kidney disease, stage 2 (mild); Z79.4 - alf (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 insulin (6) CAD (coronary artery disease), [place] coronary artery Qualifiers: [place] vs. transplanted heart: [place] heart Associated angina: without angina Qualified Code(s): I25.10 - Atherosclerotic heart disease of [place] coronary artery without angina pectoris <Hardeep Bolden - Last Filed: 07/29/18 16:50> (1) COPD (chronic obstructive pulmonary disease) Qualifiers: COPD type: COPD with acute exacerbation Qualified Code(s): J44.1 - Chronic obstructive pulmonary disease with (acute) exacerbation (2) Diabetes mellitus Qualifiers: Diabetes mellitus type: type 2 Diabetes mellitus senior living insulin use: with senior living use Diabetes mellitus complication status: with kidney complications Diabetes mellitus complication detail: with chronic kidney disease Chronic kidney disease stage: stage 2 (mild) Qualified Code(s): E11.22 - Type 2 diabetes mellitus with diabetic chronic kidney disease; N18.2 - Chronic kidney disease, stage 2 (mild); Z79.4 - alf (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 insulin (4) CAD (coronary artery disease), [place] coronary artery Qualifiers: [place] vs. transplanted heart: [place] heart Associated angina: without angina Qualified Code(s): I25.10 - Atherosclerotic heart disease of [place] coronary artery without angina pectoris (8) Pneumonia Qualifiers: Pneumonia type: due to unspecified organism Laterality: right Lung location : lower lobe of lung Qualified Code(s): J18.1 - Lobar pneumonia, unspecified organism
[2018-07-29 17:05] LABS: Alanine Aminotransferase 16 Units/L (7-52); Albumin 4.3 g/dL (3.5-5.7); Albumin/Globulin Ratio 1.6 (1.1-2.2); Alkaline Phosphatase 51 Units/L (34-104); Aspartate Amino Transferase 12 Units/L (13-39); BUN/Creatinine Ratio 32 (6-26); Bilirubin,Total 0.5 mg/dL (0.3-1.0); Blood Urea Nitrogen 42 mg/dL (8-23); Calcium 9.3 mg/dL (8.6-10.3); Carbon Dioxide 26 mEq/L (23-29); Chloride 100 mEq/L (98-107); Globulin 2.7 g/dL (2.4-3.5); Glucose 202 mg/dL (70-105); Lipase 19 Units/L (11-82); Osmolality,Calculated 298 (280-300); Potassium 4.4 mEq/L (3.5-5.1); Sodium 136 mEq/L (136-145); eGFR For Non-African Americans 52 (> 60)
[2018-07-29] MEDS: levoFLOXacin 750 MG TABLET PO SCH (17:12)
[2018-07-29] MEDS: predniSONE 20 MG TABLET PO SCH (17:12)
--- NOTE | 2018-07-29 17:18 | Electrocardiograph Report ---
[place] [id number] Test Date: 2018-07-27 Pat Name: Darren Vizcarra Department: 104 Room: 2NE22 Gender: M [employer] Molder: : 1940 Requested By: Nick Bridges Order Number: [id number] Reading MD: Kaykay Bhatti Measurements Intervals [place] Rate: 89 P: 111 MI: 214 QRS: -67 QRSD: 193 T: 108 QT: 419 QTc: 466 Interpretive Statements ELECTRONIC VENTRICULAR PACEMAKER ABNORMAL RHYTHM ECG Electronically Signed On 07-29-2018 17:17:05 EDT by Kaykay Bhatti
--- NOTE | 2018-07-29 18:20 | Electrocardiograph Report ---
[place] [id number] Test Date: 2018-07-27 Pat Name: Darren Vizcarra Department: [id number] Room: 2NE22 Gender: M [employer] B[employer] Operator: : 1940 Requested By: Camille Evangelista Order Number: [id number] Reading MD: Darcie Ladd Measurements Intervals [place] Rate: 106 P: 0 NH: 71 QRS: -72 QRSD: 182 T: 101 QT: 421 QTc: 560 Interpretive Statements Atrial fibrillation Ventricular-paced rhythm with PVCs Electronically Signed On 07-29-2018 18:18:39 EDT by Darcie Ladd
[2018-07-29] MEDS: Insulin DETEMIR 100 UNIT/ML X5UNITS SQ SCH (21:28)
[2018-07-29 22:29] LABS: Bilirubin,Urine Large (Negative); Blood,Urine Large (Negative); Clarity,Urine Cloudy (Clear); Glucose,Urine (UA) Normal (Normal); Ketones,Urine 15 mg/dL (Negative); Leukocyte Esterase,Urine Moderate (Negative); Nitrite,Urine Positive (Negative); PH,Urine 5.5 pH Units (5.0-8.0); Protein,Urine >=300 mg/dL (Neg-Trace); Specific Gravity,Urine 1.014 (1.010-1.025); Urobilinogen,Urine Normal (Normal)
[2018-07-29 22:30] LABS: Color,Urine Red (Yellow)
[2018-07-30] MEDS: Ipratropium/Albuterol Neb 3 ML IH SCH ×6 (00:11→19:38)
[2018-07-30 04:58] LABS: Hematocrit 36.3 % (37.5-50.1); Hemoglobin 11.1 g/dL (12.9-16.9); Immature Granulocytes % 0.4 % (0-4); Lymphocytes # 0.7 K/mcL (0.6-4.6); Lymphocytes % 6.7 %; Mean Corpuscular HGB Conc 30.6 g/dL (31.6-35.5); Mean Corpuscular Hemoglobin 25.8 pg (28.0-33.3); Mean Corpuscular Volume 84.2 fL (83.0-100.0); Mean Platelet Volume 10.4 fL (9.4-12.4); Monocytes # 0.5 K/mcL (0.0-1.3); Monocytes % 4.5 %; Platelet Count 204 K/mcL (140-400); Red Blood Count 4.31 M/mcL (4.19-5.50); Red Cell Distribution Width 17.7 % (11.5-14.5); Segmented Neutrophils % 88.4 %
[2018-07-30] MEDS: *HR* Heparin 5,000 UNIT/ML VIAL SQ SCH (05:35)
[2018-07-30] MEDS: Budesonide/Formoterol 80/4.5 MDI IH SCH ×2 (07:43→19:38)
[2018-07-30] MEDS: Insulin LISPRO 300 UNITS/3 ML VIAL SQ SCH ×7 (08:02→20:41)
[2018-07-30] MEDS: predniSONE 20 MG TABLET PO SCH (11:40)
[2018-07-30] MEDS: levoFLOXacin 750 MG TABLET PO SCH (11:40)
[2018-07-30] MEDS: Aspirin Enteric Coated 81 MG Tablet PO SCH (11:40)
[2018-07-30] MEDS: Furosemide 40 MG TABLET PO SCH (11:40)
[2018-07-30] MEDS: Loratadine 10 MG TABLET PO SCH (11:41)
[2018-07-30] MEDS: BuPROPion XL (24 HR) 150 MG TABLET PO SCH (11:41)
[2018-07-30] MEDS ORDERED: levoFLOXacin 750 MG TABLET PO SCH (14:00)
--- NOTE | 2018-07-30 14:09 | Internal Med Progress Note ---
Hospitalist Progress Note - Encounter Date of Encounter: 07/30/18 Time of Encounter: 13:00 - Subjective Interval History: Mr. Vizcarra is a 77 y/o M with known PMH of atrial fibrillation, CHF, COPD, diabetes, hyperlipidemia, hypertension, myocardial infarction and chronic nocturnal home O2 dependent pt admitted in the hospital for worsening SOB due to COPD exacerbation and mild CHF exacerbation. Pt was started on IV steroids and IV lasix. He states he is feeling little better today. No cough. SOB and EAG[place] also better. His abdominal discomfort also better . Still has urinary incontinence. His PVR bladder scan showed 400+ urine last night. Did straight cath x 1, developed hematuria. Still has mild hematuria - Exam Vitals: Temp Pulse Resp BP Pulse Ox 98.2 F 65 15 140/74 95 07/30/18 11:17 07/30/18 11:17 07/30/18 11:17 07/30/18 11:17 07/30/18 11:17 Exam: Gen: Alert, awake, Oriented to time,place and person Chest: Diminished breath sounds B/L, moderate wheezing, No crackles, No rales Heart: S1S2+ RRR No murmurs Abd: Soft, NT, BS +, No organomegaly Ext: No edema, pulses are palpable, No calf tenderness Neuro : Benign findings Skin: No rash. - Assessment and Plan (1) Acute on chronic respiratory failure with hypoxemia Current Visit: Yes Status: Acute Assessment and Plan: Secondary to CHF and COPD exacerbation improving (2) Acute diastolic CHF (congestive heart failure), NYHA class 3 Current Visit: Yes Status: Resolved Assessment and Plan: Echocardiogram on January 2018 showed EF of 55-60% with moderate pulmonary hypertension and diastolic dysfunction improved continue strict I & O fluid restriction continue oral Lasix (3) COPD (chronic obstructive pulmonary disease) Current Visit: Yes Status: Acute Assessment and Plan: He does have acute COPD exacerbation which is improving with steroids continue tapering steroids continue Neb treatments try to wean him off the oxygen to baseline (4) Diabetes mellitus Current Visit: Yes Status: Chronic Assessment and Plan: Continue insulin sliding scale plus Levemir (5) Hematuria Current Visit: Yes Status: Acute Assessment and Plan: Could be due to trauma from straight catheter He does have 9 mm bladder calculi continue close monitoring urology consulted (6) CAD (coronary artery disease), [place] coronary artery Current Visit: Yes Status: Chronic Assessment and Plan: Patient has a history of coronary artery disease status post PCI continue aspirin and atorvastatin, metoprolol, Plavix. (7) Elevated troponin Current Visit: Yes Status: Resolved Assessment and Plan: Patient presented with elevated troponin Likely secondary to demand ischemia in the setting of CHF and COPD exacerbation (8) Anxiety and depression Current Visit: Yes Status: Chronic Assessment and Plan: Continuing home medication wellbutrin (9) Pneumonia Current Visit: Yes Status: Acute Assessment and Plan: Reviewed CT of the chest showed possible pneumonia mostly bacterial pneumonia continue Levofloxacin 500 mg PO daily (10) Abnormal CT of the abdomen Current Visit: Yes Status: Acute Assessment and Plan: CT of abdomen showed possible pancreatitis however his lipase is completely within normal limits does not have abdominal pain anymore he does have cirrhosis of the liver which conformed with ultrasound of the liver patient did have an alcohol dependence history in the past (11) BPH (benign prostatic hyperplasia) Current Visit: Yes Status: Acute Assessment and Plan: Increases Flomax dose 0.8 mg - Time Spent with Patient Total time spent is greater than 50% in coordination of care (as documented) at patient's floor/unit and/or counseling patient: Internal Medicine: Result - Labs CBC & Chem 7: 07/30/18 03:19 07/29/18 16:31 Labs: Short CBC 07/30/18 Range/Units 03:19 WBC 10.2 (4.3-11.1) K/mcL Hgb 11.1 L (12.9-16.9) g/dL Hct 36.3 L (37.5-50.1) % Plt Count 204 (140-400) K/mcL Neutrophils # 9.0 H (1.6-8.9) K/mcL BMP 07/29/18 16:31 Sodium 136 Potassium 4.4 Chloride 100 Carbon Dioxide 26 BUN 42 H Creatinine 1.32 H Glucose 202 H Calcium 9.3 Liver Function 07/29/18 Range/Units 16:31 Total Bilirubin 0.5 (0.3-1.0) mg/dL AST 12 L (13-39) Units/L ALT 16 (7-52) Units/L Alkaline Phosphatase 51 (34-104) Units/L Albumin 4.3 (3.5-5.7) g/dL Urine 07/29/18 Range/Units 22:00 Urine Color Red A (Yellow) Urine Clarity Cloudy A (Clear) Urine pH 5.5 (5.0-8.0) pH Units Ur Specific [place] 1.014 (1.010-1.025) Urine Protein >=300 H (Neg-Trace) mg/dL Urine Glucose (UA) Normal (Normal) mg/dL - Impressions Impressions Abdomen/Pelvis CT 07/29/18 13:30 IMPRESSION: Mild stranding surrounding the pancreas, which can can be seen with pancreatitis. Correlate with lipase. Nodular contour of the liver is suggestive of cirrhosis. Small right-sided effusion and associated airspace disease which could represent atelectasis or superimposed pneumonia. Bladder calculus now measures up to 9 mm. Stranding in the anterior abdominal soft tissues could represent mild anasarca or cellulitis. D/ / Willie Lynn MD / Willie Lynn MD Interpreting Provider: Willie Lynn MD Liver Ultrasound 07/30/18 09:00 IMPRESSION: Ultrasound findings consistent with hepatic cirrhosis. No focal hepatic abnormality. Trace abdominal ascites and small right pleural effusion. 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 transplanted heart: [place] heart Associated angina: without angina Qualified Code(s): I25.10 - Atherosclerotic heart disease of [place] coronary artery without angina pectoris (9) Pneumonia Qualifiers: Pneumonia type: due to unspecified organism Laterality: right Lung location : lower lobe of lung Qualified Code(s): J18.1 - Lobar pneumonia, unspecified organism
[2018-07-30] MEDS: Insulin DETEMIR 100 UNIT/ML X5UNITS SQ SCH (20:40)
[2018-07-31] MEDS: Ipratropium/Albuterol Neb 3 ML IH SCH ×4 (00:12→11:03)
[2018-07-31 05:19] LABS: Basophils % 0.1 %; Eosinophils % 0.2 %; Hemoglobin 11.6 g/dL (12.9-16.9); Immature Granulocytes % 0.6 % (0-4); Lymphocytes # 1.1 K/mcL (0.6-4.6); Lymphocytes % 10.6 %; Mean Corpuscular HGB Conc 30.5 g/dL (31.6-35.5); Mean Corpuscular Hemoglobin 25.5 pg (28.0-33.3); Mean Corpuscular Volume 83.5 fL (83.0-100.0); Mean Platelet Volume 9.7 fL (9.4-12.4); Monocytes # 0.6 K/mcL (0.0-1.3); Neutrophils # 8.3 K/mcL (1.6-8.9); Platelet Count 184 K/mcL (140-400); Red Blood Count 4.55 M/mcL (4.19-5.50); Red Cell Distribution Width 17.6 % (11.5-14.5); Segmented Neutrophils % 82.5 %
[2018-07-31 05:40] LABS: BUN/Creatinine Ratio 28 (6-26); Blood Urea Nitrogen 33 mg/dL (8-23); Calcium 9.5 mg/dL (8.6-10.3); Carbon Dioxide 30 mEq/L (23-29); Chloride 101 mEq/L (98-107); Glucose 236 mg/dL (70-105); Osmolality,Calculated 299 (280-300); Potassium 4.2 mEq/L (3.5-5.1); Sodium 137 mEq/L (136-145); eGFR For Non-African Americans 59 (> 60)
[2018-07-31 06:39] VITALS: BP 132/88
--- NOTE | 2018-07-31 07:17 | Urology - Consult Note ---
Date of Encounter: 07/31/18 Time of Encounter: 07:14 - Assessment and Plan (1) Bladder stone Current Visit: Yes Status: Acute Assessment and plan: Bladder stone is relatively stable in size. We will plan on discussing treatment with the patient at follow-up appointment. This would likely require general anesthesia. (2) Gross hematuria Current Visit: Yes Status: Acute Assessment and plan: This has resolved. This was most likely secondary to traumatic catheterization from straight catheter. Could also have been from bladder calculus. Informed patient that gross hematuria may be present when a bladder stone is left in the bladder. (3) Urinary hesitancy Current Visit: Yes Status: Acute Assessment and plan: Patient had been on 1 Flomax per day. This has been increased to 2 a day. I relayed to the patient and significant other that he should continue on 2 Flomax per day upon discharge. Appointment made on September 09 at 10 AM in my [place] office for follow-up. Thank you for the consultation please call with any questions. Urology CN:HPI Consult date: 07/31/18 Reason for consult Urology: Other (urinary hesistancy and bladder stone) Requesting physician: Hardeep Bolden History of present illness: Darren is a 77-year-old male who was admitted to the hospital secondary to CHF and COPD exacerbation. Patient had been complaining of some lower abdominal distention and discomfort. Straight catheter was performed which revealed 2- 300 mL's of urine. Patient then had some hematuria afterwards. He did have a CT scan which revealed a small bladder stone. Patient has a known history of a bladder stone. I evaluated the patient 2016 for this problem with the patient failed to follow-up after that hospitalization. Patient has been on 1 Flomax a day for years. Patient states that his hematuria has resolved. He still has some abdominal distention but does not believe this is from his bladder. No current pain with voiding. Past Med Surg Social Fam HX - Past Medical History Medical history: atrial fibrillation, CHF, COPD, diabetes, hyperlipidemia, hypertension, myocardial infarction, renal disease Additional medical history: ANEMIA Psychiatric history: anxiety, depression - Past Surgical History Surgical History: angioplasty/stent, appendectomy, cancer surgery, cataract, cholecystectomy, herniorrhaphy, pacemaker Additional surgical history: 8 stents - Social History Smoking Status: Never smoker Smokeless Tobacco Status: No Alcohol use: none Drug use: none - Family History Mother Family Member Ethnicity: Non- Living Status: Hx Family Cardiac Disorders: Yes (HD) Brother Family Member Ethnicity: Non- Living Status: Still Living Hx Family Cardiac Disorders: Yes Hx Family Cancer: Yes (Leukemia) Hx Family Endocrine Disorder: Yes (DM) Sister Family Member Ethnicity: Non- Living Status: Hx Family Cardiac Disorders: Yes (HD) Hx Family Cancer: Yes Father Family Member Ethnicity: Non- Living Status: Hx Family Cardiac Disorders: Yes Hx Family Respiratory Disorders: No Hx Family Cancer: No Hx Family GI Disorders: No Hx Family Endocrine Disorder: Yes (DM) Hx Family Neuromuscular Disorders: No Hx Family Neurologic Disorders: Yes (stroke) Hx Family HEENT Disorders: No Hx Family Autoimmune Disorders: No Medications and Allergies Albuterol Sulfate [Albuterol Inhaler] 1 puff IH Q4H PRN 08/21/15 [History] Atorvastatin Calcium [Lipitor] 20 mg PO 1700 08/21/15 [History] Bupropion HCl [Wellbutrin Xl] 300 mg PO DAILY 08/21/15 [History] Fluticasone/Salmeterol [Advair 250-50 Diskus] 1 puff IH BID 08/21/15 [History] Insulin Glargine,Hum.rec.anlog [Lantus Solostar] 60 unit SQ HS 08/21/15 [History ] Folic Acid 1 mg PO DAILY 12/18/15 [History] Insulin LISPRO [Humalog] 15 unit SQ TIDWM 06/19/16 [History] Clopidogrel [Plavix] 75 mg PO DAILY #30 tablet 06/20/16 [Rx] Potassium Chloride 10 meq PO DAILY #30 tab.er.prt 11/03/16 [Rx] [place]-3/Dha/Epa/Fish Oil [Fish Oil 1,000 mg Softgel] 1 cap PO TID 12/04/16 [ History] Oxygen 2 l NS HS PRN 12/04/16 [History] Furosemide [Lasix] 20 mg PO DAILY 04/16/17 [History] Magnesium Oxide [Magnesium] 400 mg PO BID 04/16/17 [History] Ferrous Gluconate 324 mg PO BID 08/13/17 [History] Aspirin [Adult Aspirin Regimen] 81 mg PO DAILY 01/06/18 [History] Loratadine [Allergy Relief] 10 mg PO DAILY 04/15/18 [History] Pantoprazole Sodium 40 mg PO DAILY 04/15/18 [History] Tiotropium [Spiriva] 1 puff IH DAILY 04/15/18 [History] Cholecalciferol (Vitamin D3) [Vitamin D3] 2,000 unit PO BID 05/11/18 [History] Docusate [Colace] 100 mg PO DAILY 05/11/18 [History] Sertraline [Zoloft] 200 mg PO DAILY 05/11/18 [History] Tamsulosin [Flomax] 0.4 mg PO DAILY 05/11/18 [History] Ascorbic Acid [Vitamin C] 500 mg PO BID 07/28/18 [History] Hydrocortisone 2.5% CREAM [Cortaid] 1 appl TP DAILY PRN 07/28/18 [History] Ipratropium/Albuterol Neb [Duoneb] 3 ml IH Q6HR PRN 07/28/18 [History] Metoprolol [Lopressor] 12.5 mg PO QAM 07/28/18 [History] Metoprolol [Lopressor] 25 mg PO HS 07/28/18 [History] Nitroglycerin [Nitrostat] 0.4 mg SL Q5MIN PRN 07/28/18 [History] 3 Allergy/AdvReac Type Severity Reaction Status Date / Time codeine Allergy Difficulty Verified 07/25/18 09:58 Breathing Homatropine AdvReac Insomnia Verified 07/25/18 09:58 [From Homatropaire] hydrocodone AdvReac Insomnia Verified 07/25/18 09:58 Review of Systems - Constitutional no chills, no fever(s) - EENT Nose, mouth and throat: no dizziness, no sore throat - Cardiovascular dyspnea, edema, no chest pain - Respiratory dyspnea, no cough - Gastrointestinal no abdominal pain, no nausea, no vomiting - Genitourinary as per HPI - Musculoskeletal no back pain, no muscle weakness - Integumentary swelling, no erythema, no lesions - Neurological no confusion, no syncope, no weakness - Psychiatric no anxiety, no confusion, no depression - Hematologic/Lymphatic no easy bleeding, no lymphadenopathy - Allergic/Immunologic no throat swelling, no wheezing Exam Initial Vital Signs Temp Pulse Resp BP Pulse Ox 97.7 F 69 22 148/85 95 07/27/18 22:04 07/27/18 22:04 07/27/18 22:04 07/27/18 22:04 07/27/18 22:04 General/Neuological: alert and oriented x 3 Eyes: normal pupils, non-icteric Neck: no lymphadenopathy noted, supple to touch Cardiovascular: RRR, no murmurs Respiratory: normal respiratory effort, clear bilaterally ABD: soft, nontender, no masses palpated, good bowel sounds Back: no pain on percussion bilaterally : normal phallus, normal scrotum, testicles and epididymides normal, urethral meatus normal. Skin: no rashes noted Musculoskeletal: normal gait, FROMx4 Urology Results - Labs 07/31/18 05:00 07/31/18 05:00 Abnormal lab results Hgb 11.6 g/dL (12.9-16.9) L 07/31/18 05:00 MCH 25.5 pg (28.0-33.3) L 07/31/18 05:00 MCHC 30.5 g/dL (31.6-35.5) L 07/31/18 05:00 RDW 17.6 % (11.5-14.5) H 07/31/18 05:00 Carbon Dioxide 30 mEq/L (23-29) H 07/31/18 05:00 BUN 33 mg/dL (8-23) H 07/31/18 05:00 Est GFR (Non-Af Amer) 59 (> 60) L 07/31/18 05:00 BUN/Creatinine Ratio 28 (6-26) H 07/31/18 05:00 Glucose 236 mg/dL (70-105) H 07/31/18 05:00 POC Glucose 244 mg/dL (70-99) H 07/30/18 16:28 AST 12 Units/L (13-39) L 07/29/18 16:31 B-Natriuretic Peptide 406 pg/mL (Less than 100) H 07/27/18 22:39 Urine Color Red (Yellow) A 07/29/18 22:00 Urine Clarity Cloudy (Clear) A 07/29/18 22:00 Urine Protein >=300 mg/dL (Neg-Trace) H 07/29/18 22:00 Urine Ketones 15 mg/dL (Negative) H 07/29/18 22:00 Urine Blood Large (Negative) H 07/29/18 22:00 Urine Nitrite Positive (Negative) A 07/29/18 22:00 Urine Bilirubin Large (Negative) H 07/29/18 22:00 Ur Leukocyte Esterase Moderate (Negative) H 07/29/18 22:00 Ur Culture Indicated? YES (NO) A 07/29/18 22:00 Diabetes panel 07/31/18 Range/Units 05:00 Sodium 137 (136-145) mEq/L Potassium 4.2 (3.5-5.1) mEq/L Chloride 101 (98-107) mEq/L Carbon Dioxide 30 H (23-29) mEq/L BUN 33 H (8-23) mg/dL Creatinine 1.19 (0.70-1.30) mg/dL Glucose 236 H (70-105) mg/dL Calcium 9.5 (8.6-10.3) mg/dL Calcium panel 07/31/18 Range/Units 05:00 Calcium 9.5 (8.6-10.3) mg/dL Pituitary panel 07/31/18 Range/Units 05:00 Sodium 137 (136-145) mEq/L Potassium 4.2 (3.5-5.1) mEq/L Chloride 101 (98-107) mEq/L Carbon Dioxide 30 H (23-29) mEq/L BUN 33 H (8-23) mg/dL Creatinine 1.19 (0.70-1.30) mg/dL Glucose 236 H (70-105) mg/dL Calcium 9.5 (8.6-10.3) mg/dL Adrenal panel 07/31/18 Range/Units 05:00 Sodium 137 (136-145) mEq/L Potassium 4.2 (3.5-5.1) mEq/L Chloride 101 (98-107) mEq/L Carbon Dioxide 30 H (23-29) mEq/L BUN 33 H (8-23) mg/dL Creatinine 1.19 (0.70-1.30) mg/dL Glucose 236 H (70-105) mg/dL Calcium 9.5 (8.6-10.3) mg/dL All other labs normal. - Imaging CT scan - abdomen: image reviewed CT scan - pelvis: image reviewed (CT scan reveals stable bladder calculus. Patient also with trilobar prostatic enlargement) Consult Discharge Plan - Plan Referrals: Jose Seymour DO [Primary Care Provider] -
[2018-07-31] MEDS: Budesonide/Formoterol 80/4.5 MDI IH SCH (07:43)
[2018-07-31] MEDS: Insulin LISPRO 300 UNITS/3 ML VIAL SQ SCH ×2 (08:24)
[2018-07-31] MEDS: Furosemide 40 MG TABLET PO SCH (08:25)
[2018-07-31] MEDS: Loratadine 10 MG TABLET PO SCH (08:25)
[2018-07-31] MEDS: Aspirin Enteric Coated 81 MG Tablet PO SCH (08:26)
[2018-07-31] MEDS: BuPROPion XL (24 HR) 150 MG TABLET PO SCH (08:26)
[2018-07-31] MEDS ORDERED: levoFLOXacin 500 MG TABLET PO SCH (09:00)
[2018-07-31] MEDS ORDERED: predniSONE 20 MG TABLET PO SCH (09:00)
--- NOTE | 2018-07-31 09:03 | Discharge Summary ---
- NOTES TO OUTPATIENT PROVIDER Notes to Outpatient Provider: f/u with PCP in one week. f/u with Urology Dr. Park on Sep 09 at [facility]. Please continue taking Flomax 0.8mg daily. Also take Lasix 40mg PO daily Orders not resulted at time of discharge: Pending orders 07/29/18 22:00 Culture,Urine [RM] Routine Date of Encounter: 07/31/18 Time of Encounter: 09:02 - Discharge Diagnosis (1) Acute on chronic respiratory failure with hypoxemia Priority: Primary Status: Acute (2) Acute diastolic CHF (congestive heart failure), NYHA class 3 Priority: Primary Status: Resolved (3) COPD (chronic obstructive pulmonary disease) Priority: Secondary Status: Acute Qualifiers: COPD type: COPD with acute exacerbation Qualified Code(s): J44.1 - Chronic obstructive pulmonary disease with (acute) exacerbation (4) Diabetes mellitus Priority: Secondary Status: Chronic Qualifiers: Diabetes mellitus type: type 2 Diabetes mellitus group home insulin use: 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 transplanted heart: [place] heart Associated angina: without angina Qualified Code(s): I25.10 - Atherosclerotic heart disease of [place] coronary artery without angina pectoris (7) Elevated troponin Priority: Secondary Status: Resolved (8) Anxiety and depression Priority: Secondary Status: Chronic (9) Pneumonia Priority: Secondary Status: Acute Qualifiers: Pneumonia type: due to unspecified organism Laterality: right Lung location: lower lobe of lung Qualified Code(s): J18.1 - Lobar pneumonia, unspecified organism (10) Abnormal CT of the abdomen Priority: Secondary Status: Acute (11) BPH (benign prostatic hyperplasia) Priority: Secondary Status: Acute Qualifiers: Lower urinary tract symptom detail: straining on urination Qualified Code(s ): N40.1 - Benign prostatic hyperplasia with lower urinary tract symptoms; R39.16 - Straining to void Hospital course: Mr. Vizcarra is a 77 y/o M with known PMH of atrial fibrillation, CHF, COPD, diabetes, hyperlipidemia, hypertension, myocardial infarction and chronic nocturnal home O2 dependent pt admitted in the hospital for worsening SOB due to COPD exacerbation and mild CHF exacerbation. Pt was started on IV steroids and IV lasix. CT of the chest showed possible pneumonia, so started him on empirical abx Levofloxacin. His CT of abdomen showed possible pancreatitis however his lipase is completely within normal limits. He does have cirrhosis of the liver which conformed with ultrasound of the liver. He did have an alcohol dependence history in the past. He did have urinary incontinence, which improved with Inc flomax to 0.8mg. However he did have hematuria which could be due to bladder calculus as well as trauma due to straight cath. He was seen by Urologist, who recommend to f/u with him as an out pt. Will d/c him home in stable condition today. - Time Spent with Patient Total time spent providing and/or coordinating discharge services: - Discharge Medications Prescriptions: Furosemide [Lasix] 40 mg PO DAILY #30 tablet levoFLOXacin [Levaquin] 500 mg PO DAILY #3 tablet predniSONE [PredniSONE] 40 mg PO DAILY #10 tablet Tamsulosin [Flomax] 0.8 mg PO DAILY 30 Days capsule Home Medications: Albuterol Sulfate [Albuterol Inhaler] 1 puff IH Q4H PRN 08/21/15 [History] Atorvastatin Calcium [Lipitor] 20 mg PO 1700 08/21/15 [History] Bupropion HCl [Wellbutrin Xl] 300 mg PO DAILY 08/21/15 [History] Fluticasone/Salmeterol [Advair 250-50 Diskus] 1 puff IH BID 08/21/15 [History] Insulin Glargine,Hum.rec.anlog [Lantus Solostar] 60 unit SQ HS 08/21/15 [History ] Folic Acid 1 mg PO DAILY 12/18/15 [History] Insulin LISPRO [Humalog] 15 unit SQ TIDWM 06/19/16 [History] Clopidogrel [Plavix] 75 mg PO DAILY #30 tablet 06/20/16 [Rx] Potassium Chloride 10 meq PO DAILY #30 tab.er.prt 11/03/16 [Rx] [place]-3/Dha/Epa/Fish Oil [Fish Oil 1,000 mg Softgel] 1 cap PO TID 12/04/16 [ History] Oxygen 2 l NS HS PRN 12/04/16 [History] Magnesium Oxide [Magnesium] 400 mg PO BID 04/16/17 [History] Ferrous Gluconate 324 mg PO BID 08/13/17 [History] Aspirin [Adult Aspirin Regimen] 81 mg PO DAILY 01/06/18 [History] Loratadine [Allergy Relief] 10 mg PO DAILY 04/15/18 [History] Pantoprazole Sodium 40 mg PO DAILY 04/15/18 [History] Tiotropium [Spiriva] 1 puff IH DAILY 04/15/18 [History] Cholecalciferol (Vitamin D3) [Vitamin D3] 2,000 unit PO BID 05/11/18 [History] Docusate [Colace] 100 mg PO DAILY 05/11/18 [History] Sertraline [Zoloft] 200 mg PO DAILY 05/11/18 [History] Ascorbic Acid [Vitamin C] 500 mg PO BID 07/28/18 [History] Hydrocortisone 2.5% CREAM [Cortaid] 1 appl TP DAILY PRN 07/28/18 [History] Ipratropium/Albuterol Neb [Duoneb] 3 ml IH Q6HR PRN 07/28/18 [History] Metoprolol [Lopressor] 12.5 mg PO QAM 07/28/18 [History] Metoprolol [Lopressor] 25 mg PO HS 07/28/18 [History] Nitroglycerin [Nitrostat] 0.4 mg SL Q5MIN PRN 07/28/18 [History] Furosemide [Lasix] 40 mg PO DAILY #30 tablet 07/31/18 [Rx] Tamsulosin [Flomax] 0.8 mg PO DAILY 30 Days capsule 07/31/18 [Rx] levoFLOXacin [Levaquin] 500 mg PO DAILY #3 tablet 07/31/18 [Rx] predniSONE [PredniSONE] 40 mg PO DAILY #10 tablet 07/31/18 [Rx] Allergies/Adverse Reactions: 3 Allergy/AdvReac Type Severity Reaction Status Date / Time codeine Allergy Difficulty Verified 07/25/18 09:58 Breathing Homatropine AdvReac Insomnia Verified 07/25/18 09:58 [From Homatropaire] hydrocodone AdvReac Insomnia Verified 07/25/18 09:58 Date of admission: 07/28/18 15:31 Primary care physician: Jose Seymour DO Consults: 07/30/18 13:59 Consult to Urology [CONS] Routine Consulting Provider: Urology Tiffany Reason for Consult: BPH, Urinary retention Time Notified: 13:59 Call Completed: Yes - Constitutional Vitals: Temp Pulse Resp BP Pulse Ox 98.1 F 73 18 132/88 92 07/31/18 06:37 07/31/18 06:37 07/31/18 07:43 07/31/18 06:37 07/31/18 07:43 General appearance: Present: cooperative, A&O X 3, pleasant, answers questions appropriately Exam: Gen: Alert, awake, Oriented to time,place and person Chest: Diminished breath sounds B/L, mild wheezing, No crackles, No rales Heart: S1S2+ RRR No murmurs Abd: Soft, NT, BS +, No organomegaly Ext: No edema, pulses are palpable, No calf tenderness Neuro : Benign findings Skin: No rash. - Head Head exam: Present: atraumatic, normal inspection - Patient Status Disposition: Home, Self-Care Condition: Good Overall status at discharge: patient is back to baseline - Discharge Instructions Follow Up With: Jose Seymour DO [Primary Care Provider] - Cleveland Park MD [Partnered Physician] - - Diet and Activity Activity: increase activity as tolerated Diet: low salt diet
== END 2018-07-31 12:07 | disposition home or self-care (01) | DRG 291 ==
LOC: EMEROOARM 22:02 → 2NENU 22:02
PROVIDERS: ADMIT Family Medicine; ATTEND Family Medicine

== ENCOUNTER 2018-08-15 16:58 | Observation (INO) ==
--- NOTE | 2018-08-15 18:08 | Emergency Department Note ---
Disposition Clinical Impression: Obstruction of Montes De Oca catheter, Bladder calculi Hematuria Qualifiers: Hematuria type: gross Qualified Code(s): R31.0 - Gross hematuria Disposition: Admitted As Inpatient Condition: Good General Adult HPI - General Chief complaint: ED Urogenital-Male Stated complaint: cath problems Time Seen by Provider: 08/15/18 17:16 Source: patient, family Mode of arrival: ambulatory Limitations: no limitations Vital Signs Reviewed: Yes - History of Present Illness HPI Narrative: The patient is a 77 year old male that presents with montes de oca catheter problem. Patient was seen in the ED on 07/29/18 were he had urinary retention secondary to a 9mm bladder calculi visualized on CT at that time, he a had montes de oca catheter placed at that time and removed prior to discharge. He has an appointment scheduled with Dr. Park scheduled for 08/26/18. Patient was seen again in the ED for bilateral lower flank pain, lower abdominal pain, and urinary retention. Bladder scan at that time showed 400 ml of post-voiding residual volume. Montes De Oca catheter was placed and he was discharged home. Patient was instructed to call Dr. Park's office to see if he can be seen at an earlier date. Patient states he called the office this morning and they told him they couldn't see him any earlier than his scheduled appointment on 08/26/18. Since being discharged home yesterday he has noticed hematuria, and blood clots passing into the montes de oca catheter. He is only passing small amounts of urine into the montes de oca cather and is now having urine leak from the penis when he stands up. Patient was concerned and came in to be reevaluated. He also admits to dysuria. Patient denies any fever, chills, headache, dizziness, chest pain, shortness of breath, nausea, vomiting, diarrhea, constipation, and any other associated symptoms. Pain Scale: 2 - Related Data Home Medications Medication Instructions Recorded Confirmed Albuterol Sulfate [Albuterol 1 puff IH Q4H PRN 08/21/15 07/28/18 Inhaler] Atorvastatin Calcium [Lipitor] 20 mg PO 1700 08/21/15 07/28/18 Bupropion HCl [Wellbutrin Xl] 300 mg PO DAILY 08/21/15 07/28/18 Fluticasone/Salmeterol [Advair 1 puff IH BID 08/21/15 07/28/18 250-50 Diskus] Insulin Glargine,Hum.rec.anlog 60 unit SQ HS 08/21/15 07/28/18 [Lantus Solostar] Folic Acid 1 mg PO DAILY 12/18/15 07/28/18 Insulin LISPRO [Humalog] 15 unit SQ TIDWM 06/19/16 07/28/18 [place]-3/Dha/Epa/Fish Oil [Fish Oil 1 cap PO TID 12/04/16 07/28/18 1,000 mg Softgel] Oxygen 2 l NS HS PRN 12/04/16 07/28/18 Magnesium Oxide [Magnesium] 400 mg PO BID 04/16/17 07/28/18 Ferrous Gluconate 324 mg PO BID 08/13/17 07/28/18 Aspirin [Adult Aspirin Regimen] 81 mg PO DAILY 01/06/18 07/28/18 Loratadine [Allergy Relief] 10 mg PO DAILY 04/15/18 07/28/18 Pantoprazole Sodium 40 mg PO DAILY 04/15/18 07/28/18 Tiotropium [Spiriva] 1 puff IH DAILY 04/15/18 07/28/18 Cholecalciferol (Vitamin D3) 2,000 unit PO BID 05/11/18 07/28/18 [Vitamin D3] Docusate [Colace] 100 mg PO DAILY 05/11/18 07/28/18 Sertraline [Zoloft] 200 mg PO DAILY 05/11/18 07/28/18 Ascorbic Acid [Vitamin C] 500 mg PO BID 07/28/18 07/28/18 Hydrocortisone 2.5% CREAM [Cortaid] 1 appl TP DAILY PRN 07/28/18 07/28/18 Ipratropium/Albuterol Neb [Duoneb] 3 ml IH Q6HR PRN 07/28/18 07/28/18 Metoprolol [Lopressor] 12.5 mg PO QAM 07/28/18 07/28/18 Metoprolol [Lopressor] 25 mg PO HS 07/28/18 07/28/18 Nitroglycerin [Nitrostat] 0.4 mg SL Q5MIN PRN 07/28/18 07/28/18 Previous Rx's Medication Instructions Recorded Clopidogrel [Plavix] 75 mg PO DAILY #30 tablet 06/20/16 Potassium Chloride 10 meq PO DAILY #30 tab.er.prt 11/03/16 Furosemide [Lasix] 40 mg PO DAILY #30 tablet 07/31/18 Tamsulosin [Flomax] 0.8 mg PO DAILY 30 Days capsule 07/31/18 levoFLOXacin [Levaquin] 500 mg PO DAILY #3 tablet 07/31/18 predniSONE [PredniSONE] 40 mg PO DAILY #10 tablet 07/31/18 Allergies Allergy/AdvReac Type Severity Reaction Status Date / Time codeine Allergy Difficulty Verified 07/25/18 09:58 Breathing Homatropine AdvReac Insomnia Verified 07/25/18 09:58 [From Homatropaire] hydrocodone AdvReac Insomnia Verified 07/25/18 09:58 All systems ED: reviewed and negative except as stated. Constitutional: Denies: fever, chills Eyes: Denies: eye pain, vision change ENT ED: Denies: throat pain, congestion Cardiovascular: Denies: chest pain, palpitations, dyspnea on exertion Respiratory: Denies: cough, dyspnea Gastrointestinal: Reports: abdominal pain. Denies: nausea, vomiting, diarrhea, constipation, melena, hematochezia Genitourinary: Reports: dysuria, hematuria. Denies: testicular pain Musculoskeletal: Reports: back pain. Denies: neck pain Integumentary: Denies: rash, lesions Neurological: Denies: headache, weakness, numbness, paresthesias Past Medical History - Past Medical History Medical history: Reports: atrial fibrillation, CHF, COPD, diabetes, hyperlipidemia, hypertension, myocardial infarction, renal disease Surgical history: Reports: angioplasty/stent, appendectomy, cancer surgery, cataract, cholecystectomy, herniorrhaphy, pacemaker Psychiatric history: Reports: anxiety, depression - Social History Smoking Status: Never smoker Smokeless Tobacco Status: No Alcohol use: Reports: none Drug use: Reports: none Physical Exam - General General appearance: alert, in no apparent distress - Head Head exam: atraumatic, normocephalic - Eye Eye exam: Present: normal appearance. Absent: scleral icterus, conjunctival injection - ENT ENT exam: mucous membranes moist, normal external ear exam - Respiratory Respiratory exam: Present: normal lung sounds bilaterally. Absent: respiratory distress, wheezes - Cardiovascular Cardiovascular exam: Present: regular rate, normal rhythm, normal heart sounds. Absent: systolic murmur, diastolic murmur, rubs, gallop - Abdominal Exam Abdominal exam: Present: distention, normal bowel sounds. Absent: guarding Abdominal tenderness: Present: suprapubic, mild - Male exam: Present: other (montes de oca catheter attached to the right lower extremity. There is small amount of dark brown urine in the montes de oca catheter.) - Extremities Exam Extremities exam: Present: normal inspection, full ROM. Absent: pedal edema - Back Exam Back exam: Present: normal inspection. Absent: tenderness, CVA tenderness (R), CVA tenderness (L), rashes - Neurological Exam Neurological exam: Present: alert, oriented X3 - Psychiatric Psychiatric exam: Present: normal affect, normal mood - Skin Skin exam: Present: warm, dry, intact, normal color. Absent: rash, diaphoresis Course Course Narrative: Patient is a 77 year old male that presents with obstructed montes de oca catheter. Montes De Oca catheter will be flushed to see if this will resolve the obstruction. If flushing is unsuccesful will remove and replace the montes de oca catheter. UA and BMP were ordered to evaluated for infection and renal function. - Reevaluation(s) Reevaluation #1: Flushing the montes de oca catheter did not resolve the obstruction. Montes De Oca catheter will be removed and replaced at this time. Time: 19:25 Reevaluation #2: New Montes De Oca catheter was placed, but yielded only a small amount of bloody urine. A triple lumen montes de oca catheter will be ordered and placed. Time: 19:39 Vital Signs Temperature 98.2 F 08/15/18 17:01 Pulse Rate 91 08/15/18 17:01 Respiratory Rate 16 08/15/18 17:01 Blood Pressure 150/69 08/15/18 17:01 O2 Sat by Pulse Oximetry 92 08/15/18 17:01 Temperature 98.2 F 08/16/18 00:50 Pulse Rate 86 08/16/18 00:50 Respiratory Rate 16 08/16/18 00:50 Blood Pressure 129/84 08/16/18 00:50 O2 Sat by Pulse Oximetry 93 08/16/18 00:50 Oxygen Delivery Oxygen Delivery Nasal Cannula Medical Decision Making - MDM Narrative Medical decision making narrative: Triple lumen montes de oca catheter was placed and flushed with normal saline with good output that is blood in color. UA showed large amount of blood, but no evidence of infection. BMP showed no significant abnormality with good renal function. Labs and plan to admit were discussed with the patient and he is in agreement with this plan at this time. Patient will be admitted to the medical floor for further work up. - Lab Data Result diagrams: 08/15/18 23:09 08/15/18 18:56 Lab Results 08/15/18 08/15/18 08/15/18 Range/Units 18:56 18:57 23:09 WBC 9.8 (4.3-11.1) K/mcL RBC 4.60 (4.19-5.50) M/mcL Hgb 11.9 L (12.9-16.9) g/dL Hct 38.4 (37.5-50.1) % MCV 83.5 (83.0-100.0) fL MCH 25.9 L (28.0-33.3) pg MCHC 31.0 L (31.6-35.5) g/dL RDW 17.2 H (11.5-14.5) % Plt Count 150 (140-400) K/mcL MPV 10.2 (9.4-12.4) fL Sodium 135 L (136-145) mEq/L Potassium 4.3 (3.5-5.1) mEq/L Chloride 99 (98-107) mEq/L Carbon Dioxide 29 (23-29) mEq/L BUN 21 (8-23) mg/dL Creatinine 1.11 (0.70-1.30) mg/dL Est GFR ( Amer) > 60 (> 60) Est GFR (Non-Af Amer) > 60 (> 60) BUN/Creatinine Ratio 19 (6-26) Glucose 294 H (70-105) mg/dL Calculated Osmolality 294 (280-300) Calcium 9.2 (8.6-10.3) mg/dL Urine Color Red A (Yellow) Urine Clarity Cloudy A (Clear) Urine pH 5.5 (5.0-8.0) pH Units Ur Specific [place] 1.019 (1.010-1.025) Urine Protein 100 H (Neg-Trace) mg/dL Urine Glucose (UA) Normal (Normal) mg/dL Urine Ketones Trace H (Negative) mg/dL Urine Blood Large H (Negative) Urine Nitrite Negative (Negative) Urine Bilirubin Negative (Negative) Urine Urobilinogen Normal (Normal) mg/dL Ur Leukocyte Esterase Moderate H (Negative) Urine Microscopic RBC TNTC H (0-3) per hpf Urine Microscopic WBC 5-15 H (0-3) per hpf Ur Squamous Epith Cells Few (None-Few) per lpf Urine Bacteria None Seen (None-Few) per hpf Hyaline Casts None Seen (None-Few) per lpf
[2018-08-15 19:08] LABS: Bilirubin,Urine Negative (Negative); Blood,Urine Large (Negative); Clarity,Urine Cloudy (Clear); Color,Urine Red (Yellow); Glucose,Urine (UA) Normal (Normal); Ketones,Urine Trace mg/dL (Negative); Leukocyte Esterase,Urine Moderate (Negative); Nitrite,Urine Negative (Negative); PH,Urine 5.5 pH Units (5.0-8.0); Protein,Urine 100 mg/dL (Neg-Trace); Specific Gravity,Urine 1.019 (1.010-1.025); Urobilinogen,Urine Normal (Normal)
[2018-08-15 19:11] LABS: Bacteria,Urine None Seen per hpf (None-Few); Hyaline Casts,Urine None Seen per lpf (None-Few); RBC,Urine TNTC per hpf (0-3); Squamous Epithelial Cell,Urine Few per lpf (None-Few)
[2018-08-15 19:34] LABS: BUN/Creatinine Ratio 19 (6-26); Blood Urea Nitrogen 21 mg/dL (8-23); Calcium 9.2 mg/dL (8.6-10.3); Carbon Dioxide 29 mEq/L (23-29); Chloride 99 mEq/L (98-107); Glucose 294 mg/dL (70-105); Osmolality,Calculated 294 (280-300); Potassium 4.3 mEq/L (3.5-5.1); Sodium 135 mEq/L (136-145); eGFR For Non-African Americans > 60 (> 60)
--- NOTE | 2018-08-15 19:51 | Emergency Department Note ---
Disposition Clinical Impression: Obstruction of Pillai catheter, Bladder calculi Hematuria Qualifiers: Hematuria type: gross Qualified Code(s): R31.0 - Gross hematuria Disposition: Admitted As Inpatient Condition: Good General Adult HPI - General Chief complaint: ED Urogenital-Male Stated complaint: cath problems Time Seen by Provider: 08/15/18 17:16 Source: patient, family Mode of arrival: ambulatory Limitations: no limitations - History of Present Illness HPI Narrative: The history, physical exam, and medical decision making was performed by the medical student either while I was physically present and actively involved or I personally re-performed the exam and medical decision making. I have verified the accuracy of the medical student's documentation with regards to the history, physical exam findings, and medical decision making. Pain Scale: 2 - Related Data Home Medications Medication Instructions Recorded Confirmed Albuterol Sulfate [Albuterol 1 puff IH Q4H PRN 08/21/15 08/16/18 Inhaler] Atorvastatin Calcium [Lipitor] 20 mg PO 1700 08/21/15 08/16/18 Bupropion HCl [Wellbutrin Xl] 300 mg PO DAILY 08/21/15 08/16/18 Fluticasone/Salmeterol [Advair 1 puff IH BID 08/21/15 08/16/18 250-50 Diskus] Insulin Glargine,Hum.rec.anlog 60 unit SQ HS 08/21/15 08/16/18 [Lantus Solostar] Folic Acid 1 mg PO DAILY 12/18/15 08/16/18 Insulin LISPRO [Humalog] 15 unit SQ TIDWM 06/19/16 08/16/18 [place]-3/Dha/Epa/Fish Oil [Fish Oil 1 cap PO TID 12/04/16 08/16/18 1,000 mg Softgel] Oxygen 2 l NS HS PRN 12/04/16 08/16/18 Magnesium Oxide [Magnesium] 400 mg PO BID 04/16/17 08/16/18 Ferrous Gluconate 324 mg PO BID 08/13/17 08/16/18 Aspirin [Adult Aspirin Regimen] 81 mg PO DAILY 01/06/18 08/16/18 Loratadine [Allergy Relief] 10 mg PO DAILY 04/15/18 08/16/18 Pantoprazole Sodium 40 mg PO DAILY 04/15/18 08/16/18 Tiotropium [Spiriva] 1 puff IH DAILY 04/15/18 08/16/18 Cholecalciferol (Vitamin D3) 2,000 unit PO BID 05/11/18 08/16/18 [Vitamin D3] Docusate [Colace] 100 mg PO DAILY 05/11/18 08/16/18 Sertraline [Zoloft] 200 mg PO DAILY 05/11/18 08/16/18 Ascorbic Acid [Vitamin C] 500 mg PO BID 07/28/18 08/16/18 Ipratropium/Albuterol Neb [Duoneb] 3 ml IH Q6HR PRN 07/28/18 08/16/18 Metoprolol [Lopressor] 12.5 mg PO QAM 07/28/18 08/16/18 Metoprolol [Lopressor] 25 mg PO HS 07/28/18 08/16/18 Nitroglycerin [Nitrostat] 0.4 mg SL Q5MIN PRN 07/28/18 08/16/18 Previous Rx's Medication Instructions Recorded Clopidogrel [Plavix] 75 mg PO DAILY #30 tablet 06/20/16 Potassium Chloride 10 meq PO DAILY #30 tab.er.prt 11/03/16 Furosemide [Lasix] 40 mg PO DAILY #30 tablet 07/31/18 Tamsulosin [Flomax] 0.8 mg PO DAILY 30 Days capsule 07/31/18 Allergies Allergy/AdvReac Type Severity Reaction Status Date / Time codeine Allergy Difficulty Verified 07/25/18 09:58 Breathing Homatropine AdvReac Insomnia Verified 07/25/18 09:58 [From Homatropaire] hydrocodone AdvReac Insomnia Verified 07/25/18 09:58 Constitutional: Denies: fever, chills Eyes: Denies: eye pain, vision change ENT ED: Denies: throat pain, congestion Cardiovascular: Denies: chest pain, palpitations, dyspnea on exertion Respiratory: Denies: cough, dyspnea Gastrointestinal: Reports: abdominal pain. Denies: nausea, vomiting, diarrhea, constipation, melena, hematochezia Genitourinary: Reports: dysuria, hematuria. Denies: testicular pain Musculoskeletal: Reports: back pain. Denies: neck pain Integumentary: Denies: rash, lesions Neurological: Denies: headache, weakness, numbness, paresthesias Past Medical History - Past Medical History Medical history: Reports: atrial fibrillation, CHF, COPD, diabetes, hyperlipidemia, hypertension, myocardial infarction, renal disease Surgical history: Reports: angioplasty/stent, appendectomy, cancer surgery, cataract, cholecystectomy, herniorrhaphy, pacemaker Psychiatric history: Reports: anxiety, depression - Social History Smoking Status: Never smoker Smokeless Tobacco Status: No Alcohol use: Reports: none Drug use: Reports: none Physical Exam Vital signs noted, please see nurses notes. General: Well-developed, well-nourished patient sitting up in bed who appears non-toxic. Head: Atraumatic, normocephalic. Eyes: Sclera anicteric. ENT: Mucous membranes moist. Respiratory: Normal respiratory pattern without respiratory distress. Abdomen: Soft, nonrigid. Mild lower abdominal distention with mild diffuse tenderness to palpation. Skin: Warm and dry, no appreciable rash. Neurological: Awake and alert with normal speech, gait and mental status. No focal deficits or lateralizing signs. Psychiatric: Normal mood and affect. - General Limitations: no limitations General appearance: alert, in no apparent distress Course Vital Signs Temperature 98.2 F 08/15/18 17:01 Pulse Rate 91 08/15/18 17:01 Respiratory Rate 16 08/15/18 17:01 Blood Pressure 150/69 08/15/18 17:01 O2 Sat by Pulse Oximetry 92 08/15/18 17:01 Temperature 98.3 F 08/16/18 10:41 Pulse Rate 77 08/16/18 10:41 Respiratory Rate 16 08/16/18 10:41 Blood Pressure 119/73 08/16/18 10:41 O2 Sat by Pulse Oximetry 91 08/16/18 10:41 Oxygen Delivery Oxygen Delivery Nasal Cannula Medical Decision Making - [facility] Narrative Medical decision making narrative: The nurses attempted to flush the catheter without success. The catheter was subsequently removed and replaced with a coude catheter, again without success. At this point I have asked him to remove the coude catheter in place a 3-way Pillai catheter so that we can begin the process of continuous bladder irrigation. - Lab Data Result diagrams: 08/16/18 05:58 08/16/18 05:58 Lab Results 08/15/18 08/15/18 08/15/18 Range/Units 18:56 18:57 23:09 WBC 9.8 (4.3-11.1) K/mcL RBC 4.60 (4.19-5.50) M/mcL Hgb 11.9 L (12.9-16.9) g/dL Hct 38.4 (37.5-50.1) % MCV 83.5 (83.0-100.0) fL MCH 25.9 L (28.0-33.3) pg MCHC 31.0 L (31.6-35.5) g/dL RDW 17.2 H (11.5-14.5) % Plt Count 150 (140-400) K/mcL MPV 10.2 (9.4-12.4) fL Sodium 135 L (136-145) mEq/L Potassium 4.3 (3.5-5.1) mEq/L Chloride 99 (98-107) mEq/L Carbon Dioxide 29 (23-29) mEq/L BUN 21 (8-23) mg/dL Creatinine 1.11 (0.70-1.30) mg/dL Est GFR ( Amer) > 60 (> 60) Est GFR (Non-Af Amer) > 60 (> 60) BUN/Creatinine Ratio 19 (6-26) Glucose 294 H (70-105) mg/dL Calculated Osmolality 294 (280-300) Calcium 9.2 (8.6-10.3) mg/dL Urine Color Red A (Yellow) Urine Clarity Cloudy A (Clear) Urine pH 5.5 (5.0-8.0) pH Units Ur Specific [place] 1.019 (1.010-1.025) Urine Protein 100 H (Neg-Trace) mg/dL Urine Glucose (UA) Normal (Normal) mg/dL Urine Ketones Trace H (Negative) mg/dL Urine Blood Large H (Negative) Urine Nitrite Negative (Negative) Urine Bilirubin Negative (Negative) Urine Urobilinogen Normal (Normal) mg/dL Ur Leukocyte Esterase Moderate H (Negative) Urine Microscopic RBC TNTC H (0-3) per hpf Urine Microscopic WBC 5-15 H (0-3) per hpf Ur Squamous Epith Cells Few (None-Few) per lpf Urine Bacteria None Seen (None-Few) per hpf Hyaline Casts None Seen (None-Few) per lpf
[2018-08-15] MEDS ORDERED: Lidocaine TOPICAL Soln 50 ML BOTTLE TP ONE (21:05)
[2018-08-15] MEDS ORDERED: Lidocaine Jelly 11 ml Syringe TP ONE (21:12)
[2018-08-15 23:20] LABS: Hematocrit 38.4 % (37.5-50.1); Hemoglobin 11.9 g/dL (12.9-16.9); Mean Corpuscular Hemoglobin 25.9 pg (28.0-33.3); Mean Corpuscular Volume 83.5 fL (83.0-100.0); Mean Platelet Volume 10.2 fL (9.4-12.4); Platelet Count 150 K/mcL (140-400); Red Cell Distribution Width 17.2 % (11.5-14.5)
[2018-08-16] MEDS ORDERED: Naloxone 0.4 MG/ML INJ IVP PRN (05:43)
[2018-08-16] MEDS ORDERED: *HR* Dextrose 50 % in Water (Syg) 50 ML SYRINGE IVP PRN (05:43)
[2018-08-16] MEDS ORDERED: Dextrose Gel 15 GM/37.5 ML TUBE PO PRN ×2 (05:43)
[2018-08-16] MEDS ORDERED: D5% in Water 1,000 ML IVC PRN (05:43)
[2018-08-16] MEDS ORDERED: Ipratropium/Albuterol Neb 3 ML IH PRN ×2 (05:49→13:30)
[2018-08-16 06:18] LABS: Basophils % 0.3 %; Eosinophils # 0.2 K/mcL (0.0-0.6); Eosinophils % 1.4 %; Hematocrit 37.8 % (37.5-50.1); Hemoglobin 11.6 g/dL (12.9-16.9); Immature Granulocytes % 0.3 % (0-4); Lymphocytes # 0.9 K/mcL (0.6-4.6); Lymphocytes % 8.6 %; Mean Corpuscular HGB Conc 30.7 g/dL (31.6-35.5); Mean Corpuscular Hemoglobin 25.4 pg (28.0-33.3); Mean Corpuscular Volume 82.7 fL (83.0-100.0); Mean Platelet Volume 9.7 fL (9.4-12.4); Monocytes # 0.6 K/mcL (0.0-1.3); Monocytes % 5.9 %; Neutrophils # 8.9 K/mcL (1.6-8.9); Platelet Count 138 K/mcL (140-400); Red Blood Count 4.57 M/mcL (4.19-5.50); Red Cell Distribution Width 17.2 % (11.5-14.5); Segmented Neutrophils % 83.5 %
[2018-08-16 06:25] LABS: INR 1.2; Prothrombin Time 13.5 Seconds (9.4-12.1)
--- NOTE | 2018-08-16 06:25 | Internal Med History&Physical ---
Date of Encounter: 08/16/18 Time of Encounter: 05:30 Internal Medicine - H&P: HPI Chief complaint: hematuria Admitted From: Emergency Dept Plans for Post Hospital Care: Home History of present illness: Mr. Vizcarra is a 77 year old male who presented to the ER [facility] with complaints of hematuria and difficulty urinating. He first noticed it 2 nights ago and came in to the ER initially. At that point, he had a Pillai catheter placed and was discharged home with referral to urology. However, he had hematuria in the catheter, had decreased urine output, and was urinating around his catheter. He therefore came back to ER where he was seen and evaluated and then admitted for ongoing hematuria and need for continuous bladder irrigation. As such, he was admitted to hospitalist service with urology consultation. Upon my assessment of the patient, he denies any dysuria, flank pain, fevers, vomiting, or nausea. He had difficulty urinating and gross hematuria. He has a history of kidney stones but denies any kidney stones symptoms lately. He was just admitted less than a month ago for COPD and heart failure. He was noted at that admission to have a bladder stone. He was advised to follow-up with urology at that point. However, he has not followed up and developed the above symptoms since then. He had an appointment to see urology later this this month but was unable to wait that long to see urology. Presently, patient denies any chest pain, shortness of breath, edema, difficulty breathing, or wheezing. Past Med Surg Social Fam HX - Past Medical History Attestation: Yes The following information was validated with the patient. Source: patient, old records reviewed, obtained from family Medical history: atrial fibrillation, CHF, COPD, diabetes, hyperlipidemia, hypertension, myocardial infarction, renal disease Additional medical history: ANEMIA Psychiatric history: anxiety, depression - Past Surgical History Surgical History: angioplasty/stent, appendectomy, cancer surgery, cataract, cholecystectomy, herniorrhaphy, pacemaker Additional surgical history: 8 stents - Social History Smoking Status: Never smoker Smokeless Tobacco Status: No Alcohol use: none Drug use: none Current living situation: Home, With Family Activity Level: Independent ambulation Recent Out of Country Travel Within the Last 8 Weeks: No - Family History Mother Family Member Ethnicity: Non- Living Status: Hx Family Cardiac Disorders: Yes (HD) Brother Family Member Ethnicity: Non- Living Status: Still Living Hx Family Cardiac Disorders: Yes Hx Family Cancer: Yes (Leukemia) Hx Family Endocrine Disorder: Yes (DM) Sister Family Member Ethnicity: Non- Living Status: Hx Family Cardiac Disorders: Yes (HD) Hx Family Cancer: Yes Father Family Member Ethnicity: Non- Living Status: Hx Family Cardiac Disorders: Yes Hx Family Respiratory Disorders: No Hx Family Cancer: No Hx Family GI Disorders: No Hx Family Endocrine Disorder: Yes (DM) Hx Family Neuromuscular Disorders: No Hx Family Neurologic Disorders: Yes (stroke) Hx Family HEENT Disorders: No Hx Family Autoimmune Disorders: No Internal Medicine - H&P: Meds Albuterol Sulfate [Albuterol Inhaler] 1 puff IH Q4H PRN 08/21/15 [History] Atorvastatin Calcium [Lipitor] 20 mg PO 1700 08/21/15 [History] Bupropion HCl [Wellbutrin Xl] 300 mg PO DAILY 08/21/15 [History] Fluticasone/Salmeterol [Advair 250-50 Diskus] 1 puff IH BID 08/21/15 [History] Insulin Glargine,Hum.rec.anlog [Lantus Solostar] 60 unit SQ HS 08/21/15 [History ] Folic Acid 1 mg PO DAILY 12/18/15 [History] Insulin LISPRO [Humalog] 15 unit SQ TIDWM 06/19/16 [History] Clopidogrel [Plavix] 75 mg PO DAILY #30 tablet 06/20/16 [Rx] Potassium Chloride 10 meq PO DAILY #30 tab.er.prt 11/03/16 [Rx] [place]-3/Dha/Epa/Fish Oil [Fish Oil 1,000 mg Softgel] 1 cap PO TID 12/04/16 [ History] Oxygen 2 l NS HS PRN 12/04/16 [History] Magnesium Oxide [Magnesium] 400 mg PO BID 04/16/17 [History] Ferrous Gluconate 324 mg PO BID 08/13/17 [History] Aspirin [Adult Aspirin Regimen] 81 mg PO DAILY 01/06/18 [History] Loratadine [Allergy Relief] 10 mg PO DAILY 04/15/18 [History] Pantoprazole Sodium 40 mg PO DAILY 04/15/18 [History] Tiotropium [Spiriva] 1 puff IH DAILY 04/15/18 [History] Cholecalciferol (Vitamin D3) [Vitamin D3] 2,000 unit PO BID 05/11/18 [History] Docusate [Colace] 100 mg PO DAILY 05/11/18 [History] Sertraline [Zoloft] 200 mg PO DAILY 05/11/18 [History] Ascorbic Acid [Vitamin C] 500 mg PO BID 07/28/18 [History] Hydrocortisone 2.5% CREAM [Cortaid] 1 appl TP DAILY PRN 07/28/18 [History] Ipratropium/Albuterol Neb [Duoneb] 3 ml IH Q6HR PRN 07/28/18 [History] Metoprolol [Lopressor] 12.5 mg PO QAM 07/28/18 [History] Metoprolol [Lopressor] 25 mg PO HS 07/28/18 [History] Nitroglycerin [Nitrostat] 0.4 mg SL Q5MIN PRN 07/28/18 [History] Furosemide [Lasix] 40 mg PO DAILY #30 tablet 07/31/18 [Rx] Tamsulosin [Flomax] 0.8 mg PO DAILY 30 Days capsule 07/31/18 [Rx] levoFLOXacin [Levaquin] 500 mg PO DAILY #3 tablet 07/31/18 [Rx] predniSONE [PredniSONE] 40 mg PO DAILY #10 tablet 07/31/18 [Rx] 3 Allergy/AdvReac Type Severity Reaction Status Date / Time codeine Allergy Difficulty Verified 07/25/18 09:58 Breathing Homatropine AdvReac Insomnia Verified 07/25/18 09:58 [From Homatropaire] hydrocodone AdvReac Insomnia Verified 07/25/18 09:58 - Constitutional Constitutional: no chills, no fever(s), no night sweats - EENT Eyes: no blurry vision, no change in vision Ears: no ear pain, no tinnitus Nose, mouth and throat: no nasal congestion, no sinus pressure, no sore throat - Cardiovascular Cardiovascular ROS IM: no chest pain, no dyspnea, no dyspnea on exertion - Respiratory Respiratory: no cough, no chest congestion, no excessive phlegm production - Gastrointestinal Gastrointestinal: nausea, no abdominal pain, no diarrhea, no hematemesis, no hematochezia, no melena, no vomiting - Genitourinary Genitourinary ROS male: difficulty urinating, hematuria, no dysuria, no flank pain, no urinary frequency, no urinary urgency - Musculoskeletal Musculoskeletal ROS IM: no arthralgias, no back pain - Integumentary Integumentary IM: no rash, no jaundice - Neurological Neurological ROS: no disequilibrium, no dizziness, no focal weakness, no frequent falls, no headache(s) - Psychiatric Psychiatric: no anxiety, no depression - Endocrine Endocrine IM: no polydipsia, no polyuria - Hematologic/Lymphatic Hematologic/Lymphatic: no easy bruising - Allergic/Immunologic Allergic/Immunologic: no wheezing, no GI upset with certain foods - Constitutional Vitals: Temp Pulse Resp BP Pulse Ox 98.5 F 94 16 116/69 91 08/16/18 03:46 08/16/18 03:46 08/16/18 03:46 08/16/18 03:46 08/16/18 03:46 General appearance: Present: cooperative, A&O X 3, pleasant, no acute distress, answers questions appropriately Exam: see below - Head Head exam: Present: normal inspection - Eye Eye exam: Present: EOMI, PERRL. Absent: scleral icterus Pupils: Present: normal accommodation - ENT ENT exam: Present: mucous membranes dry, normal exam, normal oropharynx - Neck Neck exam general surgery: Present: full ROM, supple. Absent: tenderness, nuchal rigidity, thyromegaly - Respiratory Respiratory exam: Present: CTAB. Absent: chest wall tenderness, rales, rhonchi , wheezes - Cardiovascular Cardiovascular exam: Present: distant heart sounds, irregular rhythm, +S1, +S2. Absent: diastolic murmur, systolic murmur - GI/Abdominal GI/Abdominal exam: Present: normal bowel sounds, soft. Absent: guarding, hepatomegaly, rebound, splenomegaly, tenderness - Extremities Exam Extremities exam: Present: full ROM, warm, radial pulses palpable and symmetrical. Absent: calf tenderness, joint swelling, pedal edema, tenderness - Back Exam Back exam: Absent: CVA tenderness (L), CVA tenderness (R) - Neurological Exam Neurological exam: Present: alert, oriented X3, no focal deficits, strengths equal and symetr throughout - Psychiatric Psychiatric exam: Present: normal affect, normal mood - Skin Skin exam: Present: dry, intact, warm Internal Med - H&P Results - Labs CBC & Chem 7: 08/15/18 23:09 08/15/18 18:56 - Assessment and plan (1) Hematuria Current Visit: Yes Status: Acute Assessment and plan: 1. Will continue continuous bladder irrigation. 2. Consult urology for assistance. 3. Culture urine to rule out infectious hemorrhagic cysitis. Qualifiers: Hematuria type: gross Qualified Code(s): R31.0 - Gross hematuria (2) Bladder stone Current Visit: Yes Status: Chronic Assessment and plan: 1. Patient will likely need cystoscopy to better visualize, but will defer to urology. 2. Will order renal/ ultrasound to rule out obstructive uropathy. (3) CHF (congestive heart failure) Current Visit: Yes Status: Chronic Assessment and plan: 1. No acute process. 2. Monitor I/O and daily weights. 3. Resume homed meds as appropriate once meds verified. Qualifiers: Heart failure type: diastolic Heart failure chronicity: chronic Qualified Code(s): I50.32 - Chronic diastolic (congestive) heart failure (4) COPD (chronic obstructive pulmonary disease) Current Visit: Yes Status: Chronic Assessment and plan: 1. No acute process. 2. Monitor clinically and will order Duonebs PRN. 3. Resume home meds as appropriate once meds verified. Qualifiers: COPD type: emphysema Emphysema type: panlobular Qualified Code(s): J43.1 - Panlobular emphysema (5) DVT prophylaxis Current Visit: Yes Status: Acute Assessment and plan: 1. EPCD's.
[2018-08-16 06:27] LABS: Activated Partial Thrombo Time 31.1 Seconds (26.0-36.0)
[2018-08-16 06:43] LABS: Alanine Aminotransferase 14 Units/L (7-52); Albumin 3.8 g/dL (3.5-5.7); Albumin/Globulin Ratio 1.5 (1.1-2.2); Alkaline Phosphatase 43 Units/L (34-104); Aspartate Amino Transferase 10 Units/L (13-39); BUN/Creatinine Ratio 18 (6-26); Blood Urea Nitrogen 18 mg/dL (8-23); Carbon Dioxide 28 mEq/L (23-29); Chloride 102 mEq/L (98-107); Globulin 2.5 g/dL (2.4-3.5); Glucose 206 mg/dL (70-105); Magnesium 1.9 mg/dL (1.6-2.6); Osmolality,Calculated 290 (280-300); Potassium 4.3 mEq/L (3.5-5.1); Sodium 136 mEq/L (136-145); Total Protein 6.3 g/dL (6.4-8.9); eGFR For Non-African Americans > 60 (> 60)
[2018-08-16] MEDS ORDERED: Insulin LISPRO 300 UNITS/3 ML VIAL SQ SCH (07:30)
--- NOTE | 2018-08-16 08:56 | Urology - Consult Note ---
<Chaya Santizo N - Last Filed: 08/16/18 08:53> Date of Encounter: 08/16/18 Time of Encounter: 08:54 - Assessment and Plan (1) Hematuria Current Visit: Yes Status: Acute Assessment and plan: Patient is a 77-year-old male who presents with a history of gross hematuria secondary to a large bladder stone. Hemoglobin has remained stable from 11.9- 11.6. Vital signs are stable and afebrile. Hand irrigation with clot evacuation at the bedside was performed, and patient tolerated that well. We will continue CBI. Qualifiers: Hematuria type: gross Qualified Code(s): R31.0 - Gross hematuria (2) Bladder stone Current Visit: Yes Status: Chronic Assessment and plan: Patient is a 77-year-old male who presents with a history of gross hematuria and a 9 mm bladder stone. Patient does have a history of kidney stones and is familiar with stone extraction procedure. Patient verbalizes desire to proceed with stone extraction. I discussed the risks and benefits of the surgery with the patient and his . I do believe the reason for his gross hematuria secondary to the large bladder stone. I explained Dr. Alegre will be in to consent the patient if surgery is indicated. Urology CN:HPI Consult date: 08/16/18 Reason for consult Urology: Other (bladder stone) History of present illness: Patient is 77-year-old male who presents with a history of gross hematuria and a 9 mm known bladder stone. Patient was previously admitted for gross hematuria and urinary hesitancy, and on July 31, Dr. Park was consulted and recommended removal of bladder stone. The patient was scheduled for an outpatient urology appointment to arrange surgery, but he missed that appointment. The patient has been seen two more times since then in the emergency department for gross hematuria, catheter placement and clot evacuation by hand irrigation. Patient was discharged from the ED several days ago with a montes [place] oca catheter, and yesterday, patient presented with decreased urine output and feeling of obstruction. Patient has voiced his desire for surgical extraction of the bladder stone as soon as possible. Patient denies fever, chills, flank pain. Patient has a known personal history as well as family history of renal stones through both of his parents and at least two of his siblings. Past Med Surg Social Fam HX - Past Medical History Medical history: atrial fibrillation, CHF, COPD, diabetes, hyperlipidemia, hypertension, myocardial infarction, renal disease Additional medical history: ANEMIA Psychiatric history: anxiety, depression - Past Surgical History Surgical History: angioplasty/stent, appendectomy, cancer surgery, cataract, cholecystectomy, herniorrhaphy, pacemaker Additional surgical history: 8 stents - Social History Smoking Status: Never smoker Smokeless Tobacco Status: No Alcohol use: none Drug use: none - Family History Mother Family Member Ethnicity: Non- Living Status: Hx Family Cardiac Disorders: Yes (HD) Brother Family Member Ethnicity: Non- Living Status: Still Living Hx Family Cardiac Disorders: Yes Hx Family Cancer: Yes (Leukemia) Hx Family Endocrine Disorder: Yes (DM) Sister Family Member Ethnicity: Non- Living Status: Hx Family Cardiac Disorders: Yes (HD) Hx Family Cancer: Yes Father Family Member Ethnicity: Non- Living Status: Hx Family Cardiac Disorders: Yes Hx Family Respiratory Disorders: No Hx Family Cancer: No Hx Family GI Disorders: No Hx Family Endocrine Disorder: Yes (DM) Hx Family Neuromuscular Disorders: No Hx Family Neurologic Disorders: Yes (stroke) Hx Family HEENT Disorders: No Hx Family Autoimmune Disorders: No Medications and Allergies Albuterol Sulfate [Albuterol Inhaler] 1 puff IH Q4H PRN 08/21/15 [History] Atorvastatin Calcium [Lipitor] 20 mg PO 1700 08/21/15 [History] Bupropion HCl [Wellbutrin Xl] 300 mg PO DAILY 08/21/15 [History] Fluticasone/Salmeterol [Advair 250-50 Diskus] 1 puff IH BID 08/21/15 [History] Insulin Glargine,Hum.rec.anlog [Lantus Solostar] 60 unit SQ HS 08/21/15 [History ] Folic Acid 1 mg PO DAILY 12/18/15 [History] Insulin LISPRO [Humalog] 15 unit SQ TIDWM 06/19/16 [History] Clopidogrel [Plavix] 75 mg PO DAILY #30 tablet 06/20/16 [Rx] Potassium Chloride 10 meq PO DAILY #30 tab.er.prt 11/03/16 [Rx] [place]-3/Dha/Epa/Fish Oil [Fish Oil 1,000 mg Softgel] 1 cap PO TID 12/04/16 [ History] Oxygen 2 l NS HS PRN 12/04/16 [History] Magnesium Oxide [Magnesium] 400 mg PO BID 04/16/17 [History] Ferrous Gluconate 324 mg PO BID 08/13/17 [History] Aspirin [Adult Aspirin Regimen] 81 mg PO DAILY 01/06/18 [History] Loratadine [Allergy Relief] 10 mg PO DAILY 04/15/18 [History] Pantoprazole Sodium 40 mg PO DAILY 04/15/18 [History] Tiotropium [Spiriva] 1 puff IH DAILY 04/15/18 [History] Cholecalciferol (Vitamin D3) [Vitamin D3] 2,000 unit PO BID 05/11/18 [History] Docusate [Colace] 100 mg PO DAILY 05/11/18 [History] Sertraline [Zoloft] 200 mg PO DAILY 05/11/18 [History] Ascorbic Acid [Vitamin C] 500 mg PO BID 07/28/18 [History] Ipratropium/Albuterol Neb [Duoneb] 3 ml IH Q6HR PRN 07/28/18 [History] Metoprolol [Lopressor] 12.5 mg PO QAM 07/28/18 [History] Metoprolol [Lopressor] 25 mg PO HS 07/28/18 [History] Nitroglycerin [Nitrostat] 0.4 mg SL Q5MIN PRN 07/28/18 [History] Furosemide [Lasix] 40 mg PO DAILY #30 tablet 07/31/18 [Rx] Tamsulosin [Flomax] 0.8 mg PO DAILY 30 Days capsule 07/31/18 [Rx] 3 Allergy/AdvReac Type Severity Reaction Status Date / Time codeine Allergy Difficulty Verified 07/25/18 09:58 Breathing Homatropine AdvReac Insomnia Verified 07/25/18 09:58 [From Homatropaire] hydrocodone AdvReac Insomnia Verified 07/25/18 09:58 Review of Systems - Constitutional no chills, no fatigue, no fever(s) - EENT Nose, mouth and throat: no dizziness, no headache(s) - Cardiovascular no chest pain, no dyspnea, no edema - Respiratory no cough, no dyspnea - Gastrointestinal no abdominal pain, no nausea, no vomiting - Genitourinary difficulty urinating, hematuria, urinary hesitancy, no dysuria, no flank pain, no urinary frequency, no urinary incontinence, no urinary urgency - Musculoskeletal no back pain, no muscle weakness - Integumentary no erythema, no rash, no swelling - Neurological no confusion, no sensory deficit - Psychiatric no anxiety, no confusion - Hematologic/Lymphatic no easy bleeding, no easy bruising - Allergic/Immunologic no throat swelling, no wheezing Exam Initial Vital Signs Temp Pulse Resp BP Pulse Ox 98.2 F 91 16 150/69 92 08/15/18 17:01 08/15/18 17:01 08/15/18 17:01 08/15/18 17:01 08/15/18 17:01 - General physical appearance Present: well developed, no distress, no pain - Eyes Present: PERRL, normal ocular movement - ENT Present: normal nares - Neck Present: no masses, trachea midline - Respiratory Present: normal respiratory effort - Cardiovascular Cardiovascular exam IM: RRR - Abdomen Abdomen: Present: soft, non tender - Genitourinary normal penis with no external lesions, other (urine is transparent pink lemonade ) Penis: Present: retractable foreskin. Absent: circumsized Urethral meatis: Present: patent - Integumentary Present: no rash, no abnormal pigmentation - Neurologic Present: normal coordination - Musculoskeletal Present: other (normal posture ) Urology Results - Labs 08/16/18 05:58 08/16/18 05:58 Abnormal lab results Hgb 11.6 g/dL (12.9-16.9) L 08/16/18 05:58 MCV 82.7 fL (83.0-100.0) L 08/16/18 05:58 MCH 25.4 pg (28.0-33.3) L 08/16/18 05:58 MCHC 30.7 g/dL (31.6-35.5) L 08/16/18 05:58 RDW 17.2 % (11.5-14.5) H 08/16/18 05:58 Plt Count 138 K/mcL (140-400) L 08/16/18 05:58 PT 13.5 Seconds (9.4-12.1) H 08/16/18 05:58 Glucose 206 mg/dL (70-105) H 08/16/18 05:58 POC Glucose 230 mg/dL (70-99) H 08/16/18 06:23 AST 10 Units/L (13-39) L 08/16/18 05:58 Serum Total Protein 6.3 g/dL (6.4-8.9) L 08/16/18 05:58 Urine Color Red (Yellow) A 08/15/18 18:57 Urine Clarity Cloudy (Clear) A 08/15/18 18:57 Urine Protein 100 mg/dL (Neg-Trace) H 08/15/18 18:57 Urine Ketones Trace mg/dL (Negative) H 08/15/18 18:57 Urine Blood Large (Negative) H 08/15/18 18:57 Ur Leukocyte Esterase Moderate (Negative) H 08/15/18 18:57 Urine Microscopic RBC TNTC per hpf (0-3) H 08/15/18 18:57 Urine Microscopic WBC 5-15 per hpf (0-3) H 08/15/18 18:57 Diabetes panel 08/16/18 Range/Units 05:58 Sodium 136 (136-145) mEq/L Potassium 4.3 (3.5-5.1) mEq/L Chloride 102 (98-107) mEq/L Carbon Dioxide 28 (23-29) mEq/L BUN 18 (8-23) mg/dL Creatinine 0.98 (0.70-1.30) mg/dL Glucose 206 H (70-105) mg/dL Calcium 9.0 (8.6-10.3) mg/dL AST 10 L (13-39) Units/L ALT 14 (7-52) Units/L Alkaline Phosphatase 43 (34-104) Units/L Albumin 3.8 (3.5-5.7) g/dL Calcium panel 08/16/18 Range/Units 05:58 Calcium 9.0 (8.6-10.3) mg/dL Albumin 3.8 (3.5-5.7) g/dL Pituitary panel 08/16/18 Range/Units 05:58 Sodium 136 (136-145) mEq/L Potassium 4.3 (3.5-5.1) mEq/L Chloride 102 (98-107) mEq/L Carbon Dioxide 28 (23-29) mEq/L BUN 18 (8-23) mg/dL Creatinine 0.98 (0.70-1.30) mg/dL Glucose 206 H (70-105) mg/dL Calcium 9.0 (8.6-10.3) mg/dL Adrenal panel 08/16/18 Range/Units 05:58 Sodium 136 (136-145) mEq/L Potassium 4.3 (3.5-5.1) mEq/L Chloride 102 (98-107) mEq/L Carbon Dioxide 28 (23-29) mEq/L BUN 18 (8-23) mg/dL Creatinine 0.98 (0.70-1.30) mg/dL Glucose 206 H (70-105) mg/dL Calcium 9.0 (8.6-10.3) mg/dL Total Bilirubin 1.0 (0.3-1.0) mg/dL AST 10 L (13-39) Units/L ALT 14 (7-52) Units/L Alkaline Phosphatase 43 (34-104) Units/L Albumin 3.8 (3.5-5.7) g/dL All other labs normal. Procedures:Urology - Bladder Irrigation/Clot Evacuation Consent obtained: verbal consent Time out performed: No Irrigation: other (sterile water) Patient tolerated procedure: well Continuous Bladder Irrigation: Yes Complications: none Additional comments: 1 L of sterile water was used to hand irrigate patient's bladder at the bedside. A moderate size clot was evacuated without difficulty. Urine became clear after approximately 500 mL's of sterile water. Consult Discharge Plan - Plan Referrals: Jose Seymour, [Primary Care Provider] - <Luis M Alegre - Last Filed: 08/16/18 15:44> Date of Encounter: 08/16/18 - Assessment and Plan (1) Hematuria Current Visit: Yes Status: Acute Assessment and plan: Patient seen and examined. Hematuria is largely resolved at this point and the CBI is off with clear urine. I discussed with the patient that I am not convinced that the bladder stone which is less than 1 cm is causing the significant gross hematuria. I suspect that it is Plavix-induced and secondary to BPH. He did also consider urothelial malignancy. An ultrasound is pending. This will help determine if there are further clots in his bladder. If there are no clots the patient may decide for discharge without surgical intervention and hold his Plavix as an outpatient. A planned cystoscopy and stone removal as an outpatient would be arranged. The reason to delay the procedure is to hold the Plavix which would allow for a biopsy, TURBT, TURP if indicated. If we proceed to the operating room tomorrow I would be unable to resect or biopsy any tissue if indicated. If the ultrasound shows significant clot remains in his bladder will proceed to the operating room as this presents a more urgent issue. Qualifiers: Hematuria type: gross Qualified Code(s): R31.0 - Gross hematuria Exam Initial Vital Signs Temp Pulse Resp BP Pulse Ox 98.2 F 91 16 150/69 92 08/15/18 17:01 08/15/18 17:01 08/15/18 17:01 08/15/18 17:01 08/15/18 17:01 Urology Results - Labs 08/16/18 05:58 08/16/18 05:58 Abnormal lab results Hgb 11.6 g/dL (12.9-16.9) L 08/16/18 05:58 MCV 82.7 fL (83.0-100.0) L 08/16/18 05:58 MCH 25.4 pg (28.0-33.3) L 08/16/18 05:58 MCHC 30.7 g/dL (31.6-35.5) L 08/16/18 05:58 RDW 17.2 % (11.5-14.5) H 08/16/18 05:58 Plt Count 138 K/mcL (140-400) L 08/16/18 05:58 PT 13.5 Seconds (9.4-12.1) H 08/16/18 05:58 Glucose 206 mg/dL (70-105) H 08/16/18 05:58 POC Glucose 230 mg/dL (70-99) H 08/16/18 06:23 AST 10 Units/L (13-39) L 08/16/18 05:58 Serum Total Protein 6.3 g/dL (6.4-8.9) L 08/16/18 05:58 Urine Color Red (Yellow) A 08/15/18 18:57 Urine Clarity Cloudy (Clear) A 08/15/18 18:57 Urine Protein 100 mg/dL (Neg-Trace) H 08/15/18 18:57 Urine Ketones Trace mg/dL (Negative) H 08/15/18 18:57 Urine Blood Large (Negative) H 08/15/18 18:57 Ur Leukocyte Esterase Moderate (Negative) H 08/15/18 18:57 Urine Microscopic RBC TNTC per hpf (0-3) H 08/15/18 18:57 Urine Microscopic WBC 5-15 per hpf (0-3) H 08/15/18 18:57 Diabetes panel 08/16/18 Range/Units 05:58 Sodium 136 (136-145) mEq/L Potassium 4.3 (3.5-5.1) mEq/L Chloride 102 (98-107) mEq/L Carbon Dioxide 28 (23-29) mEq/L BUN 18 (8-23) mg/dL Creatinine 0.98 (0.70-1.30) mg/dL Glucose 206 H (70-105) mg/dL Calcium 9.0 (8.6-10.3) mg/dL AST 10 L (13-39) Units/L ALT 14 (7-52) Units/L Alkaline Phosphatase 43 (34-104) Units/L Albumin 3.8 (3.5-5.7) g/dL Calcium panel 08/16/18 Range/Units 05:58 Calcium 9.0 (8.6-10.3) mg/dL Albumin 3.8 (3.5-5.7) g/dL Pituitary panel 08/16/18 Range/Units 05:58 Sodium 136 (136-145) mEq/L Potassium 4.3 (3.5-5.1) mEq/L Chloride 102 (98-107) mEq/L Carbon Dioxide 28 (23-29) mEq/L BUN 18 (8-23) mg/dL Creatinine 0.98 (0.70-1.30) mg/dL Glucose 206 H (70-105) mg/dL Calcium 9.0 (8.6-10.3) mg/dL Adrenal panel 08/16/18 Range/Units 05:58 Sodium 136 (136-145) mEq/L Potassium 4.3 (3.5-5.1) mEq/L Chloride 102 (98-107) mEq/L Carbon Dioxide 28 (23-29) mEq/L BUN 18 (8-23) mg/dL Creatinine 0.98 (0.70-1.30) mg/dL Glucose 206 H (70-105) mg/dL Calcium 9.0 (8.6-10.3) mg/dL Total Bilirubin 1.0 (0.3-1.0) mg/dL AST 10 L (13-39) Units/L ALT 14 (7-52) Units/L Alkaline Phosphatase 43 (34-104) Units/L Albumin 3.8 (3.5-5.7) g/dL All other labs normal.
[2018-08-16] MEDS ORDERED: Nitroglycerin 0.4 MG TAB.SUBL SL PRN (13:30)
--- NOTE | 2018-08-16 17:33 | Event Note ---
Date of Encounter: 08/16/18 Time of Encounter: 11:00 Patient seen and evaluated by a nocturnalist earlier this morning and also by myself. Patient is a 69-year-old male who presented with urinary retention and hematuria found to have 9 mm bladder stone Urology consulted with recommendations for stone extraction procedure. In addition patient also on CBI for hematuria.
[2018-08-16] MEDS: Insulin LISPRO 300 UNITS/3 ML VIAL SQ SCH (18:11)
--- NOTE | 2018-08-16 19:07 | Electrocardiograph Report ---
[address] [address] Test Date: 2018-08-16 Pat Name: Darren Vizcarra Department: 115 Room: 3A12 Gender: M Chief Nurse: [id number] : 1940 Requested By: Nicholas Garcia Order Number: [id number] Reading MD: Randy Nieves Measurements Intervals [place] Rate: 70 P: [place]: 0 QRS: -25 QRSD: 102 T: 268 QT: 419 QTc: 441 Interpretive Statements ATRIAL FIBRILLATION BORDERLINE LEFT AXIS DEVIATION ST DEVIATION AND MARKED T-WAVE ABNORMALITY, CONSIDER ANTEROLATERAL ISCHEMIA SINGLE VENTRICULAR PACED BEAT PVC Electronically Signed On 08-16-2018 19:06:07 EDT by Randy Nieves
[2018-08-16] MEDS ORDERED: Insulin DETEMIR 100 UNIT/ML X5UNITS SQ SCH (21:00)
[2018-08-17] MEDS: Insulin LISPRO 300 UNITS/3 ML VIAL SQ SCH ×2 (08:34→12:24)
[2018-08-17] MEDS ORDERED: BuPROPion XL (24 HR) 150 MG TABLET PO SCH (09:00)
[2018-08-17] MEDS ORDERED: Furosemide 40 MG TABLET PO SCH (09:00)
[2018-08-17 09:31] LABS: Basophils % 0.4 %; Eosinophils # 0.2 K/mcL (0.0-0.6); Eosinophils % 1.9 %; Hematocrit 37.2 % (37.5-50.1); Hemoglobin 11.7 g/dL (12.9-16.9); Immature Granulocytes % 0.3 % (0-4); Lymphocytes # 0.9 K/mcL (0.6-4.6); Lymphocytes % 8.7 %; Mean Corpuscular HGB Conc 31.5 g/dL (31.6-35.5); Mean Corpuscular Hemoglobin 25.6 pg (28.0-33.3); Mean Corpuscular Volume 81.4 fL (83.0-100.0); Mean Platelet Volume 10.1 fL (9.4-12.4); Monocytes # 0.6 K/mcL (0.0-1.3); Monocytes % 5.9 %; Neutrophils # 8.3 K/mcL (1.6-8.9); Platelet Count 161 K/mcL (140-400); Red Blood Count 4.57 M/mcL (4.19-5.50); Red Cell Distribution Width 17.2 % (11.5-14.5); Segmented Neutrophils % 82.8 %
[2018-08-17 09:44] LABS: BUN/Creatinine Ratio 15 (6-26); Blood Urea Nitrogen 14 mg/dL (8-23); Calcium 9.1 mg/dL (8.6-10.3); Carbon Dioxide 28 mEq/L (23-29); Chloride 100 mEq/L (98-107); Glucose 194 mg/dL (70-105); Osmolality,Calculated 284 (280-300); Potassium 4.2 mEq/L (3.5-5.1); Sodium 134 mEq/L (136-145); eGFR For Non-African Americans > 60 (> 60)
[2018-08-17] MEDS ORDERED: Budesonide/Formoterol 160/4.5 1 PUFF INH IH SCH (10:00)
[2018-08-17] MEDS ORDERED: Tiotropium 18 MCG inhalation IH SCH (10:00)
--- NOTE | 2018-08-17 15:14 | Anesthesia Evaluation PreOp ---
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 [employer]N [employer]URNER History: Other (ANXIETY, DEPRESSION) Other Medical History: Renal, Diabetes Type II, GERD, Other (ANEMIA) Anesthesia History: No Prior Anesthetic Complications, Past Anesthesia (SEVERAL) Alcohol Use: none Drug use: none Medications and Allergies Albuterol Sulfate [Albuterol Inhaler] 1 puff IH Q4H PRN 08/21/15 [History] Atorvastatin Calcium [Lipitor] 20 mg PO 1700 08/21/15 [History] Bupropion HCl [Wellbutrin Xl] 300 mg PO DAILY 08/21/15 [History] Fluticasone/Salmeterol [Advair 250-50 Diskus] 1 puff IH BID 08/21/15 [History] Insulin Glargine,Hum.rec.anlog [Lantus Solostar] 60 unit SQ HS 08/21/15 [History ] Folic Acid 1 mg PO DAILY 12/18/15 [History] Insulin LISPRO [Humalog] 15 unit SQ TIDWM 06/19/16 [History] Clopidogrel [Plavix] 75 mg PO DAILY #30 tablet 06/20/16 [Rx] Potassium Chloride 10 meq PO DAILY #30 tab.er.prt 11/03/16 [Rx] [place]-3/Dha/Epa/Fish Oil [Fish Oil 1,000 mg Softgel] 1 cap PO TID 12/04/16 [ History] Oxygen 2 l NS HS PRN 12/04/16 [History] Magnesium Oxide [Magnesium] 400 mg PO BID 04/16/17 [History] Ferrous Gluconate 324 mg PO BID 08/13/17 [History] Aspirin [Adult Aspirin Regimen] 81 mg PO DAILY 01/06/18 [History] Loratadine [Allergy Relief] 10 mg PO DAILY 04/15/18 [History] Pantoprazole Sodium 40 mg PO DAILY 04/15/18 [History] Tiotropium [Spiriva] 1 puff IH DAILY 04/15/18 [History] Cholecalciferol (Vitamin D3) [Vitamin D3] 2,000 unit PO BID 05/11/18 [History] Docusate [Colace] 100 mg PO DAILY 05/11/18 [History] Sertraline [Zoloft] 200 mg PO DAILY 05/11/18 [History] Ascorbic Acid [Vitamin C] 500 mg PO BID 07/28/18 [History] Ipratropium/Albuterol Neb [Duoneb] 3 ml IH Q6HR PRN 07/28/18 [History] Metoprolol [Lopressor] 12.5 mg PO QAM 07/28/18 [History] Metoprolol [Lopressor] 25 mg PO HS 07/28/18 [History] Nitroglycerin [Nitrostat] 0.4 mg SL Q5MIN PRN 07/28/18 [History] Furosemide [Lasix] 40 mg PO DAILY #30 tablet 07/31/18 [Rx] Tamsulosin [Flomax] 0.8 mg PO DAILY 30 Days capsule 07/31/18 [Rx] 3 Allergy/AdvReac Type Severity Reaction Status Date / Time codeine Allergy Difficulty Verified 07/25/18 09:58 Breathing Homatropine AdvReac Insomnia Verified 07/25/18 09:58 [From Homatropaire] hydrocodone AdvReac Insomnia Verified 07/25/18 09:58 - Meds/Allergy Pre-op Review Medications Reviewed: Yes Allergies Reviewed: Yes Beta Blockers on Current Med List: Yes If Beta Blockers taken, Date/Time (Last Dose taken): 832 Anesthesia Results - Labs 08/17/18 08:54 08/17/18 08:54 Laboratory Last Values WBC 10.0 K/mcL (4.3-11.1) 08/17/18 08:54 RBC 4.57 M/mcL (4.19-5.50) 08/17/18 08:54 Hgb 11.7 g/dL (12.9-16.9) L 08/17/18 08:54 Hct 37.2 % (37.5-50.1) L 08/17/18 08:54 MCV 81.4 fL (83.0-100.0) L 08/17/18 08:54 MCH 25.6 pg (28.0-33.3) L 08/17/18 08:54 MCHC 31.5 g/dL (31.6-35.5) L 08/17/18 08:54 RDW 17.2 % (11.5-14.5) H 08/17/18 08:54 Plt Count 161 K/mcL (140-400) 08/17/18 08:54 MPV 10.1 fL (9.4-12.4) 08/17/18 08:54 Immature Gran % 0.3 % (0-4) 08/17/18 08:54 Seg Neutrophils % 82.8 % 08/17/18 08:54 Lymphocytes % 8.7 % 08/17/18 08:54 Monocytes % 5.9 % 08/17/18 08:54 Eosinophils % 1.9 % 08/17/18 08:54 Basophils % 0.4 % 08/17/18 08:54 Neutrophils # 8.3 K/mcL (1.6-8.9) 08/17/18 08:54 Lymphocytes # 0.9 K/mcL (0.6-4.6) 08/17/18 08:54 Monocytes # 0.6 K/mcL (0.0-1.3) 08/17/18 08:54 Eosinophils # 0.2 K/mcL (0.0-0.6) 08/17/18 08:54 Basophils # 0.0 K/mcL (0.0-0.2) 08/17/18 08:54 PT 13.5 Seconds (9.4-12.1) H 08/16/18 05:58 INR 1.2 08/16/18 05:58 APTT 31.1 Seconds (26.0-36.0) 08/16/18 05:58 Sodium 134 mEq/L (136-145) L 08/17/18 08:54 Potassium 4.2 mEq/L (3.5-5.1) 08/17/18 08:54 Chloride 100 mEq/L (98-107) 08/17/18 08:54 Carbon Dioxide 28 mEq/L (23-29) 08/17/18 08:54 BUN 14 mg/dL (8-23) 08/17/18 08:54 Creatinine 0.94 mg/dL (0.70-1.30) 08/17/18 08:54 Est GFR ( Amer) > 60 (> 60) 08/17/18 08:54 Est GFR (Non-Af Amer) > 60 (> 60) 08/17/18 08:54 BUN/Creatinine Ratio 15 (6-26) 08/17/18 08:54 Glucose 194 mg/dL (70-105) H 08/17/18 08:54 POC Glucose 165 mg/dL (70-99) H 08/17/18 05:31 Calculated Osmolality 284 (280-300) 08/17/18 08:54 Calcium 9.1 mg/dL (8.6-10.3) 08/17/18 08:54 Magnesium 1.9 mg/dL (1.6-2.6) 08/16/18 05:58 Total Bilirubin 1.0 mg/dL (0.3-1.0) 08/16/18 05:58 AST 10 Units/L (13-39) L 08/16/18 05:58 ALT 14 Units/L (7-52) 08/16/18 05:58 Alkaline Phosphatase 43 Units/L (34-104) 08/16/18 05:58 Serum Total Protein 6.3 g/dL (6.4-8.9) L 08/16/18 05:58 Albumin 3.8 g/dL (3.5-5.7) 08/16/18 05:58 Globulin 2.5 g/dL (2.4-3.5) 08/16/18 05:58 Albumin/Globulin Ratio 1.5 (1.1-2.2) 08/16/18 05:58 Urine Color Red (Yellow) A 08/15/18 18:57 Urine Clarity Cloudy (Clear) A 08/15/18 18:57 Urine pH 5.5 pH Units (5.0-8.0) 08/15/18 18:57 Ur Specific [place] 1.019 (1.010-1.025) 08/15/18 18:57 Urine Protein 100 mg/dL (Neg-Trace) H 08/15/18 18:57 Urine Glucose (UA) Normal mg/dL (Normal) 08/15/18 18:57 Urine Ketones Trace mg/dL (Negative) H 08/15/18 18:57 Urine Blood Large (Negative) H 08/15/18 18:57 Urine Nitrite Negative (Negative) 08/15/18 18:57 Urine Bilirubin Negative (Negative) 08/15/18 18:57 Urine Urobilinogen Normal mg/dL (Normal) 08/15/18 18:57 Ur Leukocyte Esterase Moderate (Negative) H 08/15/18 18:57 Urine Microscopic RBC TNTC per hpf (0-3) H 08/15/18 18:57 Urine Microscopic WBC 5-15 per hpf (0-3) H 08/15/18 18:57 Ur Squamous Epith Cells Few per lpf (None-Few) 08/15/18 18:57 Urine Bacteria None Seen per hpf (None-Few) 08/15/18 18:57 Hyaline Casts None Seen per lpf (None-Few) 08/15/18 18:57 Anesthesia Exam Vital Signs/O2 Sat/Glucose, Most Recent Temp Pulse Resp BP Pulse Ox 99.1 F 108 16 122/73 93 08/17/18 13:35 08/17/18 13:35 08/17/18 13:35 08/17/18 13:35 08/17/18 13:35 Blood Glucose* 214 Height: 1.88 m Weight: 105 kg - BMI 30 NPO (# of Hours): 8 - HEENT Mallampati: II Teeth: Edentulous Oral Opening: Greater than 3 - Cardiac Rhythm: Irregular - Pulmonary Breath Sounds: bilateral Clear Respiratory Effort: Symmetrical - Additional Findings MAR Administrations Atorvastatin Calcium (Lipitor) 20 mg PO 1700 [facility] Stop: 02/15/19 17:01 Last Admin: 08/16/18 18:11 Dose: 20 mg Budesonide/Formoterol Fumarate (Symbicort) 2 puff IH BIDR [facility] PRN Reason: Protocol Stop: 02/16/19 10:01 Last Admin: 08/17/18 10:17 Dose: 2 puff Bupropion HCl (Wellbutrin Xl) 300 mg PO DAILY [facility] Stop: 02/16/19 09:01 Last Admin: 08/17/18 08:33 Dose: 300 mg Furosemide (Lasix) 40 mg PO DAILY [facility] Stop: 02/16/19 09:01 Last Admin: 08/17/18 08:33 Dose: 40 mg Insulin Detemir (Levemir) 30 unit SQ HS [facility] Stop: 02/15/19 21:01 Last Admin: 08/16/18 21:24 Dose: 30 unit Insulin Human Lispro (Humalog) 0 units SQ TIDAC COURTNEY PRN Reason: Protocol Stop: 02/15/19 16:31 Last Admin: 08/17/18 12:24 Dose: 6 units Admin: 08/17/18 08:34 Dose: Not Given Non-Admin Reason: NPO Admin: 08/16/18 18:11 Dose: 10 units Comments: BG 297 Metoprolol Tartrate (Lopressor) 12.5 mg PO QAM [facility] Stop: 02/16/19 09:01 Last Admin: 08/17/18 08:33 Dose: 12.5 mg Metoprolol Tartrate (Lopressor) 25 mg PO HS [facility] Stop: 02/15/19 21:01 Last Admin: 08/16/18 21:24 Dose: 25 mg Sertraline HCl (Zoloft) 200 mg PO DAILY [facility] Stop: 02/16/19 09:01 Last Admin: 08/17/18 08:34 Dose: 200 mg Tamsulosin HCl (Flomax) 0.8 mg PO HS [facility] PRN Reason: Protocol Stop: 02/15/19 21:01 Last Admin: 08/16/18 21:23 Dose: 0.8 mg Tiotropium [place] (Spiriva) 18 mcg IH DAILYR [facility] Stop: 02/16/19 10:01 Last Admin: 08/17/18 10:18 Dose: Anesthesia Assess/Plan ASA Score: 3 Modified [place] Scale for Level of Consciousness: Cooperative, oriented, and tranquil Anesthetic Plan: General Monitoring Plan: Standard Monitors Recovery Plan: PACU Anes Supervising Prov Stmt: Patient informed and consented. Risks, benefits, and alternatives discussed. Patient wishes to proceed.
[2018-08-17] MEDS ORDERED: ceFAZolin 2,000 MG in 0.9 % Sodium Chloride 100 ML IVP ONE (15:47)
[2018-08-17] MEDS ORDERED: *HR* Propofol 200 MG/20 ML VIAL IVP ONE (15:47)
[2018-08-17] MEDS ORDERED: *HR* FentaNYL (PF) 100 MCG/2 ML VIAL ONE (15:47)
[2018-08-17] MEDS ORDERED: Lidocaine -MPF 2% 2 ML VIAL ONE (16:19)
[2018-08-17] MEDS ORDERED: Ondansetron 4 MG/2 ML VIAL IVP PRN ×2 (16:20→17:33)
[2018-08-17] MEDS ORDERED: *HR* HYDROmorphone 2 MG/ML SYRINGE IVP PRN ×2 (16:20→17:33)
[2018-08-17] MEDS ORDERED: *HR* Labetalol 20 MG/4 ML SYRINGE IVP PRN ×2 (16:20→17:33)
--- NOTE | 2018-08-17 16:35 | Operative Note ---
Date of procedure: 08/17/18 Pre-op diagnosis: 1 cm bladder stone. Gross hematuria clot retention Post-op diagnosis: same Procedure: Cystoscopy with removal of bladder stone Anesthesia: GETA Surgeon: Luis M Alegre Was there an academic affairs assistant present: No Estimated blood loss (cc): 0 Specimen: Bladder stone Condition: stable Disposition: PACU Procedure in Detail: PROCEDURE IN DETAIL: Patient was taken back to the operating room, positioned supine on the operating table. Anesthesia was applied without complication. They were moved into dorsal lithotomy. Careful attention was maintained to cushion all pressure points for patient's safety. They were prepped and draped in sterile fashion. Time-out was performed with the proper patient and procedure. A 21-Turkish rigid cystoscope was inserted into the bladder without difficulty. Systematic examination of bladder revealed no abnormalities except the free floating bladder stone. There was some mild trabeculations and mucosal edema but no evidence of urothelial malignancy. I was able to use the grasper to break apart some of the stone was able to extract the larger stone using the foreign body grasper. The smaller fragments were irrigated through the scope. I examined the bladder and there was minimal bleeding and no large clots. I elected not to place a Pillai catheter in the procedure. As long as the patient urinates well overnight with plan for discharge tomorrow. Hold anticoagulation for now if possible
[2018-08-17] MEDS ORDERED: Nitroglycerin 0.4 MG TAB.SUBL SL PRN (17:33)
[2018-08-17] MEDS ORDERED: D5% in Water 1,000 ML IVC PRN (17:33)
[2018-08-17] MEDS ORDERED: *HR* Dextrose 50 % in Water (Syg) 50 ML SYRINGE IVP PRN (17:33)
[2018-08-17] MEDS ORDERED: Naloxone 0.4 MG/ML INJ IVP PRN (17:33)
[2018-08-17] MEDS ORDERED: Dextrose Gel 15 GM/37.5 ML TUBE PO PRN ×2 (17:33)
[2018-08-17] MEDS ORDERED: Ipratropium/Albuterol Neb 3 ML IH PRN (17:33)
--- NOTE | 2018-08-17 19:57 | Internal Med Progress Note ---
Hospitalist Progress Note - Encounter Date of Encounter: 08/17/18 Time of Encounter: 11:00 - Subjective Interval History: Patient to go for stone extraction today per nephrology recommendations - Exam Vitals: Temp Pulse Resp BP Pulse Ox 98.4 F 74 16 134/78 91 08/17/18 16:57 08/17/18 18:30 08/17/18 18:30 08/17/18 18:30 08/17/18 18:30 Exam: see below - Assessment and Plan (1) Hematuria Current Visit: Yes Status: Acute Assessment and Plan: Will continue continuous bladder irrigation. Urology following and appreciate recommendations (2) Bladder stone Current Visit: Yes Status: Chronic Assessment and Plan: Urology with plans for stone extraction today (3) CHF (congestive heart failure) Current Visit: Yes Status: Chronic Assessment and Plan: 1. No acute process. 2. Monitor I/O and daily weights. 3. Resume homed meds as appropriate once meds verified. (4) COPD (chronic obstructive pulmonary disease) Current Visit: Yes Status: Chronic Assessment and Plan: 1. No acute process. 2. Monitor clinically and will order Duonebs PRN. 3. Resume home meds as appropriate once meds verified. (5) DVT prophylaxis Current Visit: Yes Status: Acute Assessment and Plan: 1. EPCD's. - Time Spent with Patient Total time spent is greater than 50% in coordination of care (as documented) at patient's floor/unit and/or counseling patient: Internal Medicine: Result - Labs CBC & Chem 7: 08/17/18 08:54 08/17/18 08:54 Labs: Short CBC 08/17/18 Range/Units 08:54 WBC 10.0 (4.3-11.1) K/mcL Hgb 11.7 L (12.9-16.9) g/dL Hct 37.2 L (37.5-50.1) % Plt Count 161 (140-400) K/mcL Neutrophils # 8.3 (1.6-8.9) K/mcL BMP 08/17/18 08:54 Sodium 134 L Potassium 4.2 Chloride 100 Carbon Dioxide 28 BUN 14 Creatinine 0.94 Glucose 194 H Calcium 9.1 - ABG Interpretation ABG results: PT/INR, D-dimer PT 13.5 Seconds (9.4-12.1) H 08/16/18 05:58 - Impressions Impressions Retroperitoneum Ultrasound 08/16/18 17:00 IMPRESSION: Bladder calculus is again noted. No hydronephrosis. D/ / Willie Lynn MD / Willie Lynn MD Interpreting Provider: Willie Lynn MD Consult Discharge Plan - Plan Referrals: Jose Seymour DO [Primary Care Provider] - (1) Hematuria Qualifiers: Hematuria type: gross Qualified Code(s): R31.0 - Gross hematuria (3) CHF (congestive heart failure) Qualifiers: Heart failure type: diastolic Heart failure chronicity: chronic Qualified Code(s): I50.32 - Chronic diastolic (congestive) heart failure (4) COPD (chronic obstructive pulmonary disease) Qualifiers: COPD type: emphysema Emphysema type: panlobular Qualified Code(s): J43.1 - Panlobular emphysema
[2018-08-17] MEDS: Budesonide/Formoterol 160/4.5 1 PUFF INH IH SCH (20:25)
[2018-08-17] MEDS ORDERED: Insulin DETEMIR 100 UNIT/ML X5UNITS SQ SCH (21:00)
[2018-08-18 06:35] VITALS: BP 124/66
[2018-08-18] MEDS: Budesonide/Formoterol 160/4.5 1 PUFF INH IH SCH (07:57)
--- NOTE | 2018-08-18 08:47 | Urology Progress Note ---
<Chaya Santizo N - Last Filed: 08/18/18 08:44> Date of Encounter: 08/18/18 Time of Encounter: 08:44 - Assessment and Plan (1) Hematuria Status: Acute Assessment and plan: Patient is a 77-year-old male who presents with a history of gross hematuria secondary to large bladder stone. Patient is one day status post cystoscopy with removal of bladder stone and doing well. Discussed postoperative expectations including hematuria. Discussed outpatient follow-up as well. Qualifiers: Hematuria type: gross Qualified Code(s): R31.0 - Gross hematuria (2) Bladder stone Status: Chronic Assessment and plan: Patient is a 77-year-old male who is one day status post cystoscopy with removal of bladder stone. Patient is recovering well and has no new concerns. Vital signs are stable and afebrile. Discussed postoperative expectations, restrictions, activity, and follow-up. Progress Note Subjective: no new complaints, feels better Narrative: POD #1. Patient seen and examined sitting upright in bed eating breakfast in no apparent distress. Patient reports he is tolerating normal diet and voiding without difficulty. Urine is cranberry color and transparent. Patient states pain is well-controlled. Patient denies fever, chills, chest pain, dyspnea, flank pain. Objective Initial Vital Signs Temp Pulse Resp BP Pulse Ox 98.2 F 91 16 150/69 92 08/15/18 17:01 08/15/18 17:01 08/15/18 17:01 08/15/18 17:01 08/15/18 17:01 - General physical appearance Present: well developed, no distress, no pain - Respiratory Present: normal expansion, normal respiratory effort - Abdomen Present: soft, non tender - Genitourinary Urine Appearance: Present: Hematuria (transparent cranberry ) - Integumentary Present: no rash, no abnormal pigmentation - Musculoskeletal Present: normal posture - Psychiatric Present: oriented to time, oriented to person, oriented to place, speech is normal, memory intact - Labs 08/17/18 08:54 08/17/18 08:54 Diabetes panel 08/17/18 Range/Units 08:54 Sodium 134 L (136-145) mEq/L Potassium 4.2 (3.5-5.1) mEq/L Chloride 100 (98-107) mEq/L Carbon Dioxide 28 (23-29) mEq/L BUN 14 (8-23) mg/dL Creatinine 0.94 (0.70-1.30) mg/dL Glucose 194 H (70-105) mg/dL Calcium 9.1 (8.6-10.3) mg/dL Calcium panel 08/17/18 Range/Units 08:54 Calcium 9.1 (8.6-10.3) mg/dL Pituitary panel 08/17/18 Range/Units 08:54 Sodium 134 L (136-145) mEq/L Potassium 4.2 (3.5-5.1) mEq/L Chloride 100 (98-107) mEq/L Carbon Dioxide 28 (23-29) mEq/L BUN 14 (8-23) mg/dL Creatinine 0.94 (0.70-1.30) mg/dL Glucose 194 H (70-105) mg/dL Calcium 9.1 (8.6-10.3) mg/dL Adrenal panel 08/17/18 Range/Units 08:54 Sodium 134 L (136-145) mEq/L Potassium 4.2 (3.5-5.1) mEq/L Chloride 100 (98-107) mEq/L Carbon Dioxide 28 (23-29) mEq/L BUN 14 (8-23) mg/dL Creatinine 0.94 (0.70-1.30) mg/dL Glucose 194 H (70-105) mg/dL Calcium 9.1 (8.6-10.3) mg/dL Consult Discharge Plan - Plan Instructions: Cystoscopy (DC) Additional Instructions: Please call and schedule follow-up appointment with urology as discussed. Referrals: Jose Seymour, [Primary Care Provider] - <Luis M Alegre - Last Filed: 08/20/18 07:34> Date of Encounter: 08/20/18 - Assessment and Plan (1) Hematuria Status: Acute Assessment and plan: seen in conjunction with PA. Agree with notes and plan Qualifiers: Hematuria type: gross Qualified Code(s): R31.0 - Gross hematuria Objective Initial Vital Signs Temp Pulse Resp BP Pulse Ox 98.2 F 91 16 150/69 92 08/15/18 17:01 08/15/18 17:01 08/15/18 17:01 08/15/18 17:01 08/15/18 17:01 - Labs 08/17/18 08:54 08/17/18 08:54
[2018-08-18] MEDS ORDERED: BuPROPion XL (24 HR) 150 MG TABLET PO SCH (09:00)
[2018-08-18] MEDS ORDERED: Furosemide 40 MG TABLET PO SCH (09:00)
[2018-08-18] MEDS: Insulin LISPRO 300 UNITS/3 ML VIAL SQ SCH ×2 (09:44→11:56)
[2018-08-18] MEDS ORDERED: Tiotropium 18 MCG inhalation IH SCH (10:00)
--- NOTE | 2018-08-18 12:05 | Discharge Summary ---
- NOTES TO OUTPATIENT PROVIDER Notes to Outpatient Provider: Follow up with urology Orders not resulted at time of discharge: Pending orders 08/17/18 16:17 Calculi (stone) Analysis Routine Surgical Pathology [PTH] Routine Date of Encounter: 08/18/18 Time of Encounter: 11:00 - Discharge Diagnosis (1) Hematuria Priority: Primary Status: Acute Qualifiers: Hematuria type: gross Qualified Code(s): R31.0 - Gross hematuria (2) Bladder stone Priority: Primary Status: Chronic (3) CHF (congestive heart failure) Priority: Secondary Status: Chronic Qualifiers: Heart failure type: diastolic Heart failure chronicity: chronic Qualified Code(s): I50.32 - Chronic diastolic (congestive) heart failure (4) COPD (chronic obstructive pulmonary disease) Priority: Secondary Status: Chronic Qualifiers: COPD type: emphysema Emphysema type: panlobular Qualified Code(s): J43.1 - Panlobular emphysema Hospital course: Patient is a 69-year-old male who presented to the ER tonight with complaints of hematuria and difficulty urinating. He first noticed it 2 nights ago and came in to the ER initially. At that point, he had a Pillai catheter placed and was discharged home with referral to urology. However, he had hematuria in the catheter, had decreased urine output, and was urinating around his catheter. He therefore came back to ER where he was seen and evaluated and then admitted for ongoing hematuria and need for continuous bladder irrigation. As such, he was admitted to hospitalist service with urology consultation. During patients hospital stay urology was consulted with recommendation for bladder stone extraction via cystoscopy. Patient will be discharged to follow- up with urologist. - Time Spent with Patient Total time spent providing and/or coordinating discharge services: - Discharge Medications Home Medications: Albuterol Sulfate [Albuterol Inhaler] 1 puff IH Q4H PRN 08/21/15 [History] Atorvastatin Calcium [Lipitor] 20 mg PO 1700 08/21/15 [History] Bupropion HCl [Wellbutrin Xl] 300 mg PO DAILY 08/21/15 [History] Fluticasone/Salmeterol [Advair 250-50 Diskus] 1 puff IH BID 08/21/15 [History] Insulin Glargine,Hum.rec.anlog [Lantus Solostar] 60 unit SQ HS 08/21/15 [History ] Folic Acid 1 mg PO DAILY 12/18/15 [History] Insulin LISPRO [Humalog] 15 unit SQ TIDWM 06/19/16 [History] Clopidogrel [Plavix] 75 mg PO DAILY #30 tablet 06/20/16 [Rx] Potassium Chloride 10 meq PO DAILY #30 tab.er.prt 11/03/16 [Rx] [place]-3/Dha/Epa/Fish Oil [Fish Oil 1,000 mg Softgel] 1 cap PO TID 12/04/16 [ History] Oxygen 2 l NS HS PRN 12/04/16 [History] Magnesium Oxide [Magnesium] 400 mg PO BID 04/16/17 [History] Ferrous Gluconate 324 mg PO BID 08/13/17 [History] Aspirin [Adult Aspirin Regimen] 81 mg PO DAILY 01/06/18 [History] Loratadine [Allergy Relief] 10 mg PO DAILY 04/15/18 [History] Pantoprazole Sodium 40 mg PO DAILY 04/15/18 [History] Tiotropium [Spiriva] 1 puff IH DAILY 04/15/18 [History] Cholecalciferol (Vitamin D3) [Vitamin D3] 2,000 unit PO BID 05/11/18 [History] Docusate [Colace] 100 mg PO DAILY 05/11/18 [History] Sertraline [Zoloft] 200 mg PO DAILY 05/11/18 [History] Ascorbic Acid [Vitamin C] 500 mg PO BID 07/28/18 [History] Ipratropium/Albuterol Neb [Duoneb] 3 ml IH Q6HR PRN 07/28/18 [History] Metoprolol [Lopressor] 12.5 mg PO QAM 07/28/18 [History] Metoprolol [Lopressor] 25 mg PO HS 07/28/18 [History] Nitroglycerin [Nitrostat] 0.4 mg SL Q5MIN PRN 07/28/18 [History] Furosemide [Lasix] 40 mg PO DAILY #30 tablet 07/31/18 [Rx] Tamsulosin [Flomax] 0.8 mg PO DAILY 30 Days capsule 07/31/18 [Rx] Allergies/Adverse Reactions: 3 Allergy/AdvReac Type Severity Reaction Status Date / Time codeine Allergy Difficulty Verified 07/25/18 09:58 Breathing Homatropine AdvReac Insomnia Verified 07/25/18 09:58 [From Homatropaire] hydrocodone AdvReac Insomnia Verified 07/25/18 09:58 Date of admission: 08/15/18 23:16 Primary care physician: Jose Seymour DO Consults: 08/16/18 05:48 Consult to Physician [CONS] Routine Consulting Provider: Luis M Alegre Reason for Consult: hematuria Call Completed: No - Constitutional Vitals: Temp Pulse Resp BP Pulse Ox 98.7 F 100 18 124/66 95 08/18/18 06:31 08/18/18 06:31 08/18/18 07:58 08/18/18 06:31 08/18/18 07:58 General appearance: Present: cooperative, A&O X 3, pleasant, no acute distress, answers questions appropriately Exam: Gen.: Nonacute distress, alert and oriented 3 Skin: Normal color - Patient Status Disposition: Home Health Service Condition: Good - Discharge Instructions Instructions: Cystoscopy (DC) Follow Up With: Jose Seymour DO [Primary Care Provider] - Additional Instructions: Please call and schedule follow-up appointment with urology as discussed.
--- NOTE | 2018-08-18 12:07 | Physician Discharge Referral ---
Home Health/Hosp Referral Info Transfer to: Home Health - Diagnosis (1) Hematuria Status: Acute (2) Bladder stone Status: Chronic (3) CHF (congestive heart failure) Status: Chronic (4) COPD (chronic obstructive pulmonary disease) Status: Chronic (5) DVT prophylaxis Status: Acute - Respiratory Orders Smoking Cessation: Smoking cessation has been advised. For more information, call the [place] Tobacco Quit Line at 9-999-MRZM-NOW. - Services Needed Following services are medically necessary services: Nursing, Physical Therapy, Occupational Therapy - Transfer Medications Home Medications: Albuterol Sulfate [Albuterol Inhaler] 1 puff IH Q4H PRN 08/21/15 [History] Atorvastatin Calcium [Lipitor] 20 mg PO 1700 08/21/15 [History] Bupropion HCl [Wellbutrin Xl] 300 mg PO DAILY 08/21/15 [History] Fluticasone/Salmeterol [Advair 250-50 Diskus] 1 puff IH BID 08/21/15 [History] Insulin Glargine,Hum.rec.anlog [Lantus Solostar] 60 unit SQ HS 08/21/15 [History ] Folic Acid 1 mg PO DAILY 12/18/15 [History] Insulin LISPRO [Humalog] 15 unit SQ TIDWM 06/19/16 [History] Clopidogrel [Plavix] 75 mg PO DAILY #30 tablet 06/20/16 [Rx] Potassium Chloride 10 meq PO DAILY #30 tab.er.prt 11/03/16 [Rx] [place]-3/Dha/Epa/Fish Oil [Fish Oil 1,000 mg Softgel] 1 cap PO TID 12/04/16 [ History] Oxygen 2 l NS HS PRN 12/04/16 [History] Magnesium Oxide [Magnesium] 400 mg PO BID 04/16/17 [History] Ferrous Gluconate 324 mg PO BID 08/13/17 [History] Aspirin [Adult Aspirin Regimen] 81 mg PO DAILY 01/06/18 [History] Loratadine [Allergy Relief] 10 mg PO DAILY 04/15/18 [History] Pantoprazole Sodium 40 mg PO DAILY 04/15/18 [History] Tiotropium [Spiriva] 1 puff IH DAILY 04/15/18 [History] Cholecalciferol (Vitamin D3) [Vitamin D3] 2,000 unit PO BID 05/11/18 [History] Docusate [Colace] 100 mg PO DAILY 05/11/18 [History] Sertraline [Zoloft] 200 mg PO DAILY 05/11/18 [History] Ascorbic Acid [Vitamin C] 500 mg PO BID 07/28/18 [History] Ipratropium/Albuterol Neb [Duoneb] 3 ml IH Q6HR PRN 07/28/18 [History] Metoprolol [Lopressor] 12.5 mg PO QAM 07/28/18 [History] Metoprolol [Lopressor] 25 mg PO HS 07/28/18 [History] Nitroglycerin [Nitrostat] 0.4 mg SL Q5MIN PRN 07/28/18 [History] Furosemide [Lasix] 40 mg PO DAILY #30 tablet 07/31/18 [Rx] Tamsulosin [Flomax] 0.8 mg PO DAILY 30 Days capsule 07/31/18 [Rx] Allergies/Adverse Reactions: 3 Allergy/AdvReac Type Severity Reaction Status Date / Time codeine Allergy Difficulty Verified 07/25/18 09:58 Breathing Homatropine AdvReac Insomnia Verified 07/25/18 09:58 [From Homatropaire] hydrocodone AdvReac Insomnia Verified 07/25/18 09:58 Certification: Further, I certify that my clinical findings support that this patient is homebound (i.e. absences from home require considerable and taxing effort and are for medical reasons or jehovah's witness services or infrequently or short duration when for other reasons) because: Homebound Reason: Patient requires assistance of a person or device to safely leave home Attestation: My signature below is to certify that this patient is under my care and that I, or nurse practitioner, or a physician's assistant refinery operator working with me, has a face-to -face encounter with this patient.
[2018-08-22 12:16] LABS: Calculi Mass 553 mg
== END 2018-08-18 14:00 | disposition home health service (06) ==
LOC: 3ANU 16:58 → EMEROOARM 16:58 → SUATTDRO 23:16 → 3ANU 08-16 00:08
PROVIDERS: ADMIT Family Medicine; ATTEND Hospitalist

== ENCOUNTER 2018-10-21 02:47 | Inpatient (IN) ==
[2018-10-21 06:25] LABS: BUN/Creatinine Ratio 27 (6-26); Blood Urea Nitrogen 32 mg/dL (8-23); Carbon Dioxide 28 mEq/L (23-29); Chloride 105 mEq/L (98-107); Glucose 83 mg/dL (70-105); Osmolality,Calculated 292 (280-300); Potassium 3.9 mEq/L (3.5-5.1); Sodium 138 mEq/L (136-145); eGFR For Non-African Americans 60 (> 60)
[2018-10-21] MEDS ORDERED: Naloxone 0.4 MG/ML INJ IVP PRN (08:10)
[2018-10-21] MEDS ORDERED: Acetaminophen 325 MG TABLET PO PRN (08:10)
--- NOTE | 2018-10-21 09:39 | Internal Med History&Physical ---
Date of Encounter: 10/21/18 Time of Encounter: 08:45 Internal Medicine - H&P: HPI Chief complaint: Shortness of breath and palpitations Admitted From: Emergency Dept Plans for Post Hospital Care: Home History of present illness: Mr. Vizcarra is a 78 year old male patient with a history of atrial fibrillation status post permanent pacemaker, CHF, COPD, hypertension hyperlipidemia, prior [place] and chronic kidney disease presented to the ER with complaints of shortness of breath yesterday. He reports that his symptoms of shortness of breath began yesterday and he felt very weak and tired along with that. However he is also been having palpitations over the past 3 days. He also noted that his blood pressure was low yesterday and he states that it was in the 60s systolic. He had called his primary care provider 3 days back and was told to cut back on his Flomax dose. He continued to have palpitations. He denies any swelling in his legs. No orthopnea or PND. Since coming to the ER he feels a little better with regards to his breathing. He just feels weak and tired and continues to have palpitations. Past Med Surg Social Fam HX - Past Medical History Attestation: Yes The following information was validated with the patient. Source: patient Medical history: atrial fibrillation, CHF, COPD, diabetes, hyperlipidemia, hypertension, kidney stones, myocardial infarction, renal disease, other Additional medical history: ANEMIA Psychiatric history: anxiety, depression - Past Surgical History Surgical History: angioplasty/stent, appendectomy, cancer surgery, cataract, cholecystectomy, herniorrhaphy, pacemaker Additional surgical history: 8 cardiac stents. 3 hernia repairs. cancer right ear - Social History Smoking Status: Former smoker Smokeless Tobacco Status: No Alcohol use: none Drug use: none - Family History Mother Family Member Ethnicity: Non- Living Status: Hx Family Cardiac Disorders: Yes (HD) Brother Family Member Ethnicity: Non- Living Status: Still Living Hx Family Cardiac Disorders: Yes Hx Family Cancer: Yes (Leukemia) Hx Family Endocrine Disorder: Yes (DM) Sister Family Member Ethnicity: Non- Living Status: Hx Family Cardiac Disorders: Yes (HD) Hx Family Cancer: Yes Father Family Member Ethnicity: Non- Living Status: Hx Family Cardiac Disorders: Yes Hx Family Respiratory Disorders: No Hx Family Cancer: No Hx Family GI Disorders: No Hx Family Endocrine Disorder: Yes (DM) Hx Family Neuromuscular Disorders: No Hx Family Neurologic Disorders: Yes (stroke) Hx Family HEENT Disorders: No Hx Family Autoimmune Disorders: No Internal Medicine - H&P: Meds Albuterol Sulfate [Albuterol Inhaler] 1 puff IH Q4H PRN 08/21/15 [History] Atorvastatin Calcium [Lipitor] 20 mg PO 1700 08/21/15 [History] Bupropion HCl [Wellbutrin Xl] 300 mg PO DAILY 08/21/15 [History] Fluticasone/Salmeterol [Advair 250-50 Diskus] 1 puff IH BID 08/21/15 [History] Insulin Glargine,Hum.rec.anlog [Lantus Solostar] 60 unit SQ HS 08/21/15 [His tory] Folic Acid 1 mg PO DAILY 12/18/15 [History] Insulin LISPRO [Humalog] 15 unit SQ TIDWM 06/19/16 [History] Clopidogrel [Plavix] 75 mg PO DAILY #30 tablet 06/20/16 [Rx] Potassium Chloride 10 meq PO DAILY #30 tab.er.prt 11/03/16 [Rx] [place]-3/Dha/Epa/Fish Oil [Fish Oil 1,000 mg Softgel] 1 cap PO TID 12/04/16 [History] Oxygen 2 l NS HS PRN 12/04/16 [History] Magnesium Oxide [Magnesium] 400 mg PO BID 04/16/17 [History] Ferrous Gluconate 324 mg PO BID 08/13/17 [History] Aspirin [Adult Aspirin Regimen] 81 mg PO DAILY 01/06/18 [History] Loratadine [Allergy Relief] 10 mg PO DAILY 04/15/18 [History] Pantoprazole Sodium 40 mg PO DAILY 04/15/18 [History] Tiotropium [Spiriva] 1 puff IH DAILY 04/15/18 [History] Cholecalciferol (Vitamin D3) [Vitamin D3] 2,000 unit PO BID 05/11/18 [History] Docusate [Colace] 100 mg PO DAILY 05/11/18 [History] Sertraline [Zoloft] 200 mg PO DAILY 05/11/18 [History] Ascorbic Acid [Vitamin C] 500 mg PO BID 07/28/18 [History] Ipratropium/Albuterol Neb [Duoneb] 3 ml IH Q6HR PRN 07/28/18 [History] Metoprolol [Lopressor] 25 mg PO BID 07/28/18 [History] Nitroglycerin [Nitrostat] 0.4 mg SL Q5MIN PRN 07/28/18 [History] Tamsulosin [Flomax] 0.8 mg PO DAILY 30 Days capsule 07/31/18 [Rx] Furosemide [Lasix] 40 mg PO BID 09/05/18 [History] Hydrocortisone 2.5% CREAM [Cortaid] 1 appl TP AD #1 tube 09/05/18 [Rx] Allergy/AdvReac Type Severity Reaction Status Date / Time codeine Allergy Difficulty Verified 09/05/18 13:50 Breathing Homatropine AdvReac Insomnia Verified 09/05/18 13:50 [From Homatropaire] hydrocodone AdvReac Insomnia Verified 09/05/18 13:50 All Systems PM: A 10-system review of systems was performed and is negative for pertinent findings except as documented above in the HPI. - Constitutional Constitutional: no chills, no fever(s), no night sweats - EENT Eyes: no change in vision, no discharge, no pain, no photophobia Ears: no ear discharge, no ear pain, no tinnitus Nose, mouth and throat: no dysphagia, no nasal discharge, no neck pain, no sore throat - Cardiovascular Cardiovascular ROS IM: palpitations, no chest pain, no diaphoresis, no dyspnea, no lightheadedness, no syncope - Respiratory Respiratory: dyspnea, no cough, no wheezing, no excessive phlegm production - Gastrointestinal Gastrointestinal: no abdominal pain, no diarrhea, no hematemesis, no hematochezia, no melena, no nausea, no vomiting - Musculoskeletal Musculoskeletal ROS IM: no numbness, no tingling - Integumentary Integumentary IM: no rash, no unusual bruising - Neurological Neurological ROS: no confusion, no convulsions, no focal weakness, no numbness, no tingling, no tremor(s) - Hematologic/Lymphatic Hematologic/Lymphatic: no easy bruising - Constitutional Vitals: Temp Pulse Resp BP Pulse Ox 98.0 F 129 20 100/71 94 10/21/18 06:55 10/21/18 06:55 10/21/18 06:55 10/21/18 06:55 10/21/18 06:55 General appearance: Present: cooperative, mild distress, A&O X 3, pleasant, answers questions appropriately Exam: General: Patient is alert, no acute distress, oriented x 3 Head: atraumatic, normocephalic, ENT: Mucous membranes moist Chest: normal inspection, symmetric chest rise Respiratory: Good respiratory effort. Normal breath sounds. No wheezing or crackles. Cardiovascular: Regular rate and rhythm, tachycardia s1 and s2 normal No clicks, rubs, gallops, or murmurs. Mild pedal edema Abdomen: Abdomen is soft, nontender. Bowel sounds are present Musculoskeletal: Spontaneously moving all extremities Skin: warm, dry, intact. Neuro: Alert oriented x 3 normal cranial nerves, no focal deficits Psych: Patient's affect is normal Internal Med - H&P Results - Labs CBC & Chem 7: 10/21/18 05:28 Labs: BMP 10/21/18 05:28 Sodium 138 Potassium 3.9 Chloride 105 Carbon Dioxide 28 BUN 32 H Creatinine 1.18 Glucose 83 Calcium 9.0 Cardiac Enzymes 10/21/18 10/21/18 Range/Units 05:28 08:27 Troponin I 0.04 H* 0.03 (< 0.04) ng/mL - EKG Data -: EKG Interpreted by Myself - EKG Data EKG comments: 10/21/18 09:43 Ventricular paced rhythm with tachycardia - Impressions chest x-ray shows cardiomegaly and pulmonary vascular congestion - Assessment and plan (1) Congestive heart failure Current Visit: Yes Status: Acute Assessment and plan: Patient does have pulmonary edema on x-ray. Will treat with intravenous Lasix. Monitor vital signs closely. Monitor renal function also closely. High risk for complications. BNP is 610. It was 15 in August. Qualifiers: Heart failure type: diastolic Heart failure chronicity: acute on chronic Qualified Code(s): I50.33 - Acute on chronic diastolic (congestive) heart failure (2) Atrial fibrillation Current Visit: Yes Status: Chronic Assessment and plan: Patient tachycardic and V-paced rhythm. Most likely underlying A. fib with RVR. Will consult cardiology for recommendations. Not starting Cardizem as patient's blood pressure has been on the lower side. We will await cardiology recommendations. Pacemaker interrogation ordered. Patient is currently not on anticoagulation. Most likely due to recent episodes of persistent hematuria Qualifiers: Atrial fibrillation type: paroxysmal Qualified Code(s): I48.0 - Paroxysmal atrial fibrillation (3) CAD (coronary artery disease), [place] coronary artery Current Visit: Yes Status: Chronic Assessment and plan: No chest pain at this time. Mild troponin elevation. Likely demand ischemia. Continue home medications. Including metoprolol, Plavix and aspirin Qualifiers: [place] vs. transplanted heart: [place] heart Associated angina: without angina Qualified Code(s): I25.10 - Atherosclerotic heart disease of [place] coronary artery without angina pectoris (4) COPD (chronic obstructive pulmonary disease) Current Visit: Yes Status: Chronic Assessment and plan: Not in acute exacerbation. Will place patient on by bronchodilators as needed. Qualifiers: COPD type: emphysema Emphysema type: panlobular Qualified Code(s): J43.1 - Panlobular emphysema (5) Diabetes mellitus Current Visit: Yes Status: Chronic Assessment and plan: Monitor blood sugars. Place patient on sliding scale insulin. Diabetic diet when able to eat. 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 Likely demand ischemia with underlying A. fib (7) Hypotension Current Visit: Yes Status: Acute Assessment and plan: patient reportedly hypotensive yesterday. His blood pressure was 100/71 on arrival here. We will monitor closely. We will hold his antihypertensives for systolic less than 90. Qualifiers: Hypotension type: hypotension due to drug Qualified Code(s): I95.2 - Hypotension due to drugs (8) DVT prophylaxis Current Visit: Yes Status: Acute Assessment and plan: With subcutaneous heparin - Time Spent With Patient Total time spent is greater than 50% in coordination of care (as documented) at patient's floor/unit and/or counseling patient:
[2018-10-21] MEDS ORDERED: *HR* Heparin 5,000 UNIT/ML VIAL SQ SCH (10:00)
--- NOTE | 2018-10-21 10:32 | Cardiology Consult Note ---
Addendum entered and electronically signed by Katelynn Quintanilla CNP 10/21/18 15:15: Eliquis co-pay $0. Discussed with Dr. Hardy, will start this evening. Will stop plavix and continue asa to avoid triple therapy. Continue to monitor H/H closely. Original Note: <Katelynn Quintanilla - Last Filed: 10/21/18 14:54> Date of Encounter: 10/21/18 Time of Encounter: 10:15 Assessment and Plan (1) Atrial fibrillation Current Visit: Yes Status: Chronic Hx of PAF, previously on Xarelto but discontinued secondary to hemoptysis. Of note, at that time was on triple therapy--asa, plavix, and Xarelto. No recurrent hemoptysis off Xarelto. Reports recent episodes of hematuria, however resolved after Urologic procedure. Device check completed today and reviewed with Dr. Shayne Hardy--demonstrates multiple atrial high rates--which are chronic for patient. PAF noted. Currently AT. No concern for PMT. BP improved, will add Cardizem 120 mg daily; continue BB. Given multiple episodes of PAF and elevated [id number] (5); recommend d/c of plavix and starting Eliquis for AC. Patient and family are agreeable. Will send garza check. Qualifiers: Atrial fibrillation type: paroxysmal Qualified Code(s): I48.0 - Paroxysmal atrial fibrillation (2) CAD (coronary artery disease), [place] coronary artery Current Visit: Yes Status: Chronic Hx of CAD s/p multiple PCI's. Last LHC (PTCA only) to high grade ISR of LCx. No chest pain/discomfort described. Continue asa, statin, BB. Qualifiers: [place] vs. transplanted heart: [place] heart Associated angina: without angina Qualified Code(s): I25.10 - Atherosclerotic heart disease of [place] coronary artery without angina pectoris (3) Diastolic CHF Current Visit: Yes Status: Acute Hx of diastolic CHF, last TTE 2017 (limited) demonstrated normal LVEF. CXR at [place]: pulm. vascular congestion. BNP 600's, previously normal. Rales noted on exam. Agree with IV lasix. Recommend repeating TTE to evaluate LVEF. Strict I&Os, daily weights, and Na/fluid restricted diet. Qualifiers: Heart failure chronicity: acute on chronic Qualified Code(s): I50.33 - Acute on chronic diastolic (congestive) heart failure Discussion w patient/family: The assessment and plan as outlined above was discussed with the patient and/or family members who expressed understanding and agreement. All questions were answered. Thank you for involving us in the care of your patient. Please call with any questions. The patient will be discussed and reviewed with Dr. Shayne Hardy; changes to be made accordingly. History of Present Illness Consult date: 10/21/18 Requesting physician: Amber Ball Consult reason: tachycardia Chief complaint: Shortness of breath History of present illness: Mr. Vizcarra is a 78 year old male with PMHx a history of PAF s/p AV node ablation, pacemaker, CAD, s/p multiple stents, HTN, COPD, HLD, DM, and obesity who presented to [place] ED with complaints of worsening shortness of breath with associated fatigue and tachycardia over the past 2 days. He also reports hypotension, called his PCP who decreased his dose of flomax. Initial concern for pacemaker mediated tachycardia and was therefore transferred to [facility]. CXR at [place] shows pulmonary vascular congestion, BNP is elevated at 610--previously normal. Previous testing: [facility] 06/19/2016: Severe two vessel coronary artery disease. EF 60%. Severe in- stent stenosis 99%, in the proximal Circumflex, successful PTCA. 30% stenosis Proximal LAD, 20% stenosis Mid LAD. Ramus 50% stenosis. 95% stenosis in the proximal RCA, small and non-dominant. TTE 05/10/2017: EF 55-60%. Mild concentric LVH. Atypical septal motion, consistent with paced rhythm. Indeterminate diastolic function. No evidence of pulmonary hypertension. RVSP not well obtained. TTE Limited 05/11/2017: EF 60%. Regadenoson Nuclear Stress test 05/12/2017: Gated EF 47%. Pharmacologic stress ECG non diagnostic for ischemia due to paced rhythm, nonspecific ST-T changes. Small sized, mild intensity, fixed inferior defect. Wall motion appears hypokinetic. Suggestive of prior infarct. Perfusion imaging negative for ischemia. Carotid Duplex 05/10/2017: Left proximal ICA 60-79% stenosis. Left Mid ICA 60-79% stenosis. Right carotid arteries normal throughout. Past Med Surg Social Fam HX - Past Medical History Attestation: Yes The following information was validated with the patient. Source: patient Medical history: atrial fibrillation, CHF (chronic, diastolic), COPD, coronary artery disease, diabetes, hyperlipidemia, hypertension, kidney stones, myocardial infarction, renal disease, other Additional medical history: ANEMIA Psychiatric history: anxiety, depression - Past Surgical History Surgical History: angioplasty/stent, appendectomy, cancer surgery, cataract, cholecystectomy, herniorrhaphy, pacemaker Additional surgical history: 8 cardiac stents. 3 hernia repairs. cancer right ear - Social History Smoking Status: Former smoker Smokeless Tobacco Status: No Alcohol use: none Drug use: none - Family History Brother Family Member Ethnicity: Non- Living Status: Still Living Hx Family Cardiac Disorders: Yes Hx Family Cancer: Yes (Leukemia) Hx Family Endocrine Disorder: Yes (DM) Father Family Member Ethnicity: Non- Living Status: Hx Family Cardiac Disorders: Yes Hx Family Respiratory Disorders: No Hx Family Cancer: No Hx Family GI Disorders: No Hx Family Endocrine Disorder: Yes (DM) Hx Family Neuromuscular Disorders: No Hx Family Neurologic Disorders: Yes (stroke) Hx Family HEENT Disorders: No Hx Family Autoimmune Disorders: No Mother Family Member Ethnicity: Non- Living Status: Hx Family Cardiac Disorders: Yes (HD) Sister Family Member Ethnicity: Non- Living Status: Hx Family Cardiac Disorders: Yes (HD) Hx Family Cancer: Yes Medications and Allergies RX: Albuterol Sulfate [Albuterol Inhaler] 1 puff IH Q4H PRN 08/21/15 [History] RX: Atorvastatin Calcium [Lipitor] 20 mg PO 1700 08/21/15 [History] RX: Bupropion HCl [Wellbutrin Xl] 300 mg PO DAILY 08/21/15 [History] RX: Fluticasone/Salmeterol [Advair 250-50 Diskus] 1 puff IH BID 08/21/15 [History] RX: Insulin Glargine,Hum.rec.anlog [Lantus Solostar] 60 unit SQ HS 08/21/15 [H istory] RX: Folic Acid 1 mg PO DAILY 12/18/15 [History] RX: Insulin LISPRO [Humalog] 15 unit SQ TIDWM 06/19/16 [History] RX: Clopidogrel [Plavix] 75 mg PO DAILY #30 tablet 06/20/16 [Rx] RX: Potassium Chloride 10 meq PO DAILY #30 tab.er.prt 12/27/16 [Rx] RX: [place]-3/Dha/Epa/Fish Oil [Fish Oil 1,000 mg Softgel] 1 cap PO TID 12/04/16 [History] RX: Oxygen 2 l NS HS PRN 12/04/16 [History] RX: Magnesium Oxide [Magnesium] 400 mg PO BID 04/16/17 [History] RX: Ferrous Gluconate 324 mg PO BID 08/13/17 [History] RX: Aspirin [Adult Aspirin Regimen] 81 mg PO DAILY 01/06/18 [History] RX: Loratadine [Allergy Relief] 10 mg PO DAILY 04/15/18 [History] RX: Pantoprazole Sodium 40 mg PO DAILY 04/15/18 [History] RX: Tiotropium [Spiriva] 1 puff IH DAILY 04/15/18 [History] RX: Cholecalciferol (Vitamin D3) [Vitamin D3] 2,000 unit PO BID 05/11/18 [History] RX: Docusate [Colace] 100 mg PO DAILY 05/11/18 [History] RX: Sertraline [Zoloft] 200 mg PO DAILY 05/11/18 [History] RX: Ascorbic Acid [Vitamin C] 500 mg PO BID 07/28/18 [History] RX: Ipratropium/Albuterol Neb [Duoneb] 3 ml IH Q6HR PRN 07/28/18 [History] RX: Metoprolol [Lopressor] 25 mg PO BID 07/28/18 [History] RX: Nitroglycerin [Nitrostat] 0.4 mg SL Q5MIN PRN 07/28/18 [History] RX: Tamsulosin [Flomax] 0.8 mg PO DAILY 30 Days capsule 07/31/18 [Rx] RX: Furosemide [Lasix] 40 mg PO BID 09/05/18 [History] RX: Hydrocortisone 2.5% CREAM [Cortaid] 1 appl TP AD #1 tube 09/05/18 [Rx] Allergy/AdvReac Type Severity Reaction Status Date / Time codeine Allergy Difficulty Verified 09/05/18 13:50 Breathing Homatropine AdvReac Insomnia Verified 09/05/18 13:50 [From Homatropaire] hydrocodone AdvReac Insomnia Verified 09/05/18 13:50 All Systems Review: The remainder of the systems were reviewed and are negative - Cardiovascular Cardiovascular: as per HPI Physical Examination Vital Signs, Last 4 Hours Temp Pulse Resp BP Pulse Ox 10/21/18 06:55 98.0 F 129 20 100/71 94 General: Conversant, No Apparent Distress HEENT: Atraumatic, Normocephaly, Mucus Membranes Moist Cardiac: Reg Rate and Rhythm, Normal S1 and S2 Lungs: Other (Rales noted throughout) Neuro: Alert and responsive Abdomen: Soft Skin: No rashes noted on visualized skin Musculoskeletal: No Chest Wall Tenderness Extremities: No Edema, Normal Pulses Results 10/21/18 05:28 Lab Results 10/21/18 10/21/18 10/21/18 05:28 05:28 05:28 Sodium 138 Potassium 3.9 Chloride 105 Carbon Dioxide 28 BUN 32 H Creatinine 1.18 Glucose 83 Calcium 9.0 Magnesium 2.2 Troponin I 0.04 H* 10/21/18 08:27 Sodium Potassium Chloride Carbon Dioxide BUN Creatinine Glucose Calcium Magnesium Troponin I 0.03 Active Medications Acetaminophen (Tylenol) 650 mg PO Q6HR PRN PRN Reason: Mild Pain/Fever Stop: 04/22/19 08:11 Aspirin (Aspirin Ec) 81 mg PO DAILY [facility] Stop: 04/22/19 10:01 Last Admin: 10/21/18 10:55 Dose: 81 mg Atorvastatin Calcium (Lipitor) 20 mg PO 1700 [facility] Stop: 04/22/19 17:01 Clopidogrel Bisulfate (Plavix) 75 mg PO DAILY [facility] Stop: 04/22/19 10:01 Last Admin: 10/21/18 10:55 Dose: 75 mg Dextrose/Water (Dextrose 50% (Syg)) 25 ml IVP AD PRN PRN Reason: Hypoglycemia Stop: 04/22/19 11:58 Diltiazem HCl (Cardizem Cd) 120 mg PO DAILY [facility] Stop: 04/22/19 12:16 Last Admin: 10/21/18 13:20 Dose: 120 mg Docusate Sodium (Colace) 100 mg PO DAILY [facility]; Protocol Stop: 04/23/19 09:01 Ferrous Sulfate (Ferrous Sulfate) 325 mg PO BIDWM [facility] Stop: 04/22/19 10:01 Last Admin: 10/21/18 10:55 Dose: 325 mg Furosemide (Lasix) 40 mg IVP BID[facility]URETIC COURTNEY Stop: 04/22/19 10:01 Last Admin: 10/21/18 10:55 Dose: 40 mg Glucagon (Glucagen) 1 mg IM ONCE PRN PRN Reason: Hypoglycemia Stop: 04/22/19 11:58 Glucose (Gluctose) 15 gm PO ONCE PRN PRN Reason: Hypoglycemia Stop: 04/22/19 11:58 Glucose (Gluctose) 30 gm PO ONCE PRN PRN Reason: Hypoglycemia Stop: 04/22/19 11:58 Heparin Sodium (Porcine) (Heparin) 5,000 unit SQ Q12HCO [facility] Stop: 04/22/19 10:01 Last Admin: 10/21/18 10:56 Dose: 5,000 unit Dextrose (Dextrose 5%) 1,000 mls @ 100 mls/hr IVC .Q10H PRN PRN Reason: HYPOGLYCEMIA Stop: 04/22/19 11:58 Insulin Human Lispro (Humalog) 0 units SQ HS [facility]; Protocol Stop: 04/22/19 21:01 Insulin Human Lispro (Humalog) 0 units SQ TIDAC [facility]; Protocol Stop: 04/22/19 12:01 Last Admin: 10/21/18 13:19 Dose: Not Given Metoprolol Tartrate (Lopressor) 25 mg PO BID [facility] Stop: 04/22/19 10:01 Last Admin: 10/21/18 10:55 Dose: 25 mg Naloxone HCl (Narcan) 0.4 mg IVP Q2MIN PRN PRN Reason: SEE COMMENTS Stop: 04/22/19 08:11 Potassium Chloride (Potassium Chloride) 10 meq PO DAILY [facility] Stop: 04/22/19 10:01 Last Admin: 10/21/18 10:55 Dose: 10 meq - Imaging and Cardiology Echo: report reviewed Cardiac cath: report reviewed - EKG Interpretation EKG results cardiology: personally reviewed Consult Discharge Plan - Plan Referrals: Jose Seymour DO [Primary Care Provider] - <Shayne Hardy - Last Filed: 10/21/18 15:24> Date of Encounter: 10/21/18 - Attending Attestation I have personally performed a face to face evaluation on this patient. I have reviewed and agree with the care plan. History and Exam by me shows: SOB of uncertain etiology. Has chronic atrial arrythmias. No pacer malfunction or PMT. Pacemaker is tracking an atrial arrythmia. Will try to treat with increased medicationsl. Assessment and Plan Discussion w patient/family: The assessment and plan as outlined above was discussed with the patient and/or family members who expressed understanding and agreement. All questions were ans wered. Thank you for involving us in the care of your patient. Please call with any questions. History of Present Illness History of present illness: Mr. Vizcarra is a 78 year old male All Systems Review: The remainder of the systems were reviewed and are negative Physical Examination Vital Signs, Last 4 Hours Temp Pulse Resp BP Pulse Ox 10/21/18 11:46 97.3 F L 116 18 122/68 95 Results 10/21/18 05:28 Lab Results 10/21/18 10/21/18 10/21/18 05:28 05:28 05:28 Sodium 138 Potassium 3.9 Chloride 105 Carbon Dioxide 28 BUN 32 H Creatinine 1.18 Glucose 83 Calcium 9.0 Magnesium 2.2 Troponin I 0.04 H* 10/21/18 08:27 Sodium Potassium Chloride Carbon Dioxide BUN Creatinine Glucose Calcium Magnesium Troponin I 0.03
[2018-10-21] MEDS: Aspirin Enteric Coated 81 MG Tablet PO SCH (10:55)
[2018-10-21] MEDS: Furosemide 40 MG/4 ML VIAL IVP SCH ×2 (10:55→17:02)
[2018-10-21] MEDS ORDERED: D5% in Water 1,000 ML IVC PRN (11:57)
[2018-10-21] MEDS ORDERED: Dextrose Gel 15 GM/37.5 ML TUBE PO PRN ×2 (11:57)
[2018-10-21] MEDS ORDERED: *HR* Dextrose 50 % in Water (Syg) 50 ML SYRINGE IVP PRN (11:57)
[2018-10-21 12:44] LABS: Estimated Average Glucose 157 mg/dl; Hemoglobin A1C 7.1 %
[2018-10-21] MEDS: Insulin LISPRO 300 UNITS/3 ML VIAL SQ SCH ×3 (13:19→20:16)
[2018-10-21] MEDS: Diltiazem CD (24hr) 120 MG CAPSULE PO SCH (13:20)
[2018-10-21] MEDS: Apixaban 5 MG TABLET PO SCH (20:44)
[2018-10-22] MEDS ORDERED: Simethicone 80 MG TAB.CHEW PO ONE ×2 (02:35→22:30)
[2018-10-22] MEDS: Diltiazem CD (24hr) 120 MG CAPSULE PO SCH (08:07)
[2018-10-22] MEDS: Furosemide 40 MG/4 ML VIAL IVP SCH ×2 (08:08→17:12)
[2018-10-22] MEDS: Apixaban 5 MG TABLET PO SCH (08:08)
[2018-10-22] MEDS: Aspirin Enteric Coated 81 MG Tablet PO SCH (08:08)
[2018-10-22] MEDS: Insulin LISPRO 300 UNITS/3 ML VIAL SQ SCH ×4 (08:24→22:07)
[2018-10-22 09:59] LABS: Basophils # 0.1 K/mcL (0.0-0.2); Basophils % 0.4 %; Eosinophils # 0.2 K/mcL (0.0-0.6); Eosinophils % 1.6 %; Hematocrit 37.7 % (37.5-50.1); Hemoglobin 11.2 g/dL (12.9-16.9); Immature Granulocytes % 0.3 % (0-4); Lymphocytes % 8.8 %; Mean Corpuscular HGB Conc 29.7 g/dL (31.6-35.5); Mean Corpuscular Hemoglobin 24.7 pg (28.0-33.3); Mean Platelet Volume 10.1 fL (9.4-12.4); Monocytes # 0.8 K/mcL (0.0-1.3); Monocytes % 6.6 %; Neutrophils # 9.5 K/mcL (1.6-8.9); Platelet Count 228 K/mcL (140-400); Red Blood Count 4.54 M/mcL (4.19-5.50); Segmented Neutrophils % 82.3 %
[2018-10-22 10:18] LABS: BUN/Creatinine Ratio 21 (6-26); Blood Urea Nitrogen 27 mg/dL (8-23); Calcium 8.9 mg/dL (8.6-10.3); Carbon Dioxide 31 mEq/L (23-29); Chloride 101 mEq/L (98-107); Glucose 189 mg/dL (70-105); Osmolality,Calculated 296 (280-300); Phosphorous 3.1 mg/dL (2.7-4.5); Potassium 3.8 mEq/L (3.5-5.1); Sodium 138 mEq/L (136-145); eGFR For Non-African Americans 54 (> 60)
--- NOTE | 2018-10-22 11:29 | Cardiology Progress Note ---
Date of Encounter: 10/22/18 Time of Encounter: 11:00 Assessment and Plan (1) Congestive heart failure Current Visit: Yes Status: Acute Hx of diastolic CHF, last TTE 2017 (limited) demonstrated normal LVEF. CXR at [place]: pulm. vascular congestion. BNP 600's, previously normal. Rales noted on exam. TTE this admission shows reduced LVEF, 30-35% with global severe systolic dysfunction, moderate RV hypokinesis, mild MR, mild TR, and moderate PH Device check shows persistent AT with HR in the 130's, likely reduced EF tachycardia related; however given hx of obstructive CAD and multiple PCI's, recommend LHC prior to discharge--plan for Wednesday. Will optimize BB dose, consider ACEi/ARB prior to discharge if BP/renal function will tolerate. Agree with IV lasix--dyspnea improved. Cumulative I&O: -2510 mL Strict I&Os, daily weights, and Na/fluid restricted diet. Qualifiers: Heart failure type: systolic Heart failure chronicity: acute Qualified Code(s): I50.21 - Acute systolic (congestive) heart failure (2) Atrial fibrillation Current Visit: Yes Status: Chronic Hx of PAF, previously on Xarelto but discontinued secondary to hemoptysis. Of note, at that time was on triple therapy--asa, plavix, and Xarelto. No recurrent hemoptysis off Xarelto. Reports recent episodes of hematuria, castillo esha resolved after Urologic procedure. Device check completed 10/[address] Shayne Hardy--demonstrates multiple atrial high rates--which are chronic for patient. PAF noted. Currently AT. No concern for PMT. Given decreased LVEF, will stop CCB and uptitrate BB. Started on Eliquis yesterday, will hold after this AM dose and start heparin gtt. Long-term AC to be determined after LHC on Wednesday. Qualifiers: Atrial fibrillation type: paroxysmal Qualified Code(s): I48.0 - Paroxysmal atrial fibrillation (3) CAD (coronary artery disease), [place] coronary artery Current Visit: Yes Status: Chronic Hx of CAD s/p multiple PCI's. Last LHC (PTCA only) to high grade ISR of LCx. No chest pain/discomfort described. Continue asa, statin, BB. Qualifiers: [place] vs. transplanted heart: [place] heart Associated angina: without angina Qualified Code(s): I25.10 - Atherosclerotic heart disease of [place] coronary artery without angina pectoris Discussion w patient/family: The assessment and plan as outlined above was discussed with the patient and/or family members who expressed understanding and agreement. All questions were answered. Thank you for involving us in the care of your patient. Please call with any questions. The patient will be discussed and reviewed with Dr. Shayne Hardy; changes to be made accordingly. Subjective Principal diagnosis: Tachycardia,dyspnea Interval history: Seen and examined. No new complaints overnight, HR's controlled this AM. Dyspnea improved with IV lasix. No chest pain/discomfort. No abnormal bleeding described. Objective Vital Signs, Last 4 Hours Temp Pulse Resp BP Pulse Ox 10/22/18 07:40 99.3 F 123 20 101/69 92 General: Conversant, No Apparent Distress HEENT: Atraumatic, Normocephaly, Mucus Membranes Moist Cardiac: Reg Rate and Rhythm, Normal S1 and S2 Lungs: Other (Few bibasilar rales) Neuro: Alert and responsive Abdomen: Soft, Other (large, soft) Skin: No rashes noted on visualized skin Musculoskeletal: No Chest Wall Tenderness Extremities: No Edema, Normal Pulses Results 10/22/18 09:26 10/22/18 09:26 Lab Results 10/22/18 10/22/18 09:26 09:26 WBC 11.6 H Hgb 11.2 L Hct 37.7 Plt Count 228 Sodium 138 Potassium 3.8 Chloride 101 Carbon Dioxide 31 H BUN 27 H Creatinine 1.28 Glucose 189 H Calcium 8.9 Magnesium 2.0 Active Medications Acetaminophen (Tylenol) 650 mg PO Q6HR PRN PRN Reason: Mild Pain/Fever Stop: 04/22/19 08:11 Apixaban (Eliquis) 5 mg PO BID [facility] Stop: 04/22/19 21:01 Last Admin: 10/22/18 08:08 Dose: 5 mg Aspirin (Aspirin Ec) 81 mg PO DAILY [facility] Stop: 04/22/19 10:01 Last Admin: 10/22/18 08:08 Dose: 81 mg Atorvastatin Calcium (Lipitor) 20 mg PO 1700 [facility] Stop: 04/22/19 17:01 Last Admin: 10/21/18 17:02 Dose: 20 mg Dextrose/Water (Dextrose 50% (Syg)) 25 ml IVP AD PRN PRN Reason: Hypoglycemia Stop: 04/22/19 11:58 Diltiazem HCl (Cardizem Cd) 120 mg PO DAILY [facility] Stop: 04/22/19 12:16 Last Admin: 10/22/18 08:07 Dose: 120 mg Docusate Sodium (Colace) 100 mg PO DAILY [facility]; Protocol Stop: 04/23/19 09:01 Last Admin: 10/22/18 08:08 Dose: 100 mg Ferrous Sulfate (Ferrous Sulfate) 325 mg PO BIDWM [facility] Stop: 04/22/19 10:01 Last Admin: 10/22/18 08:08 Dose: 325 mg Furosemide (Lasix) 40 mg IVP BIDDIURETIC [facility] Stop: 04/22/19 10:01 Last Admin: 10/22/18 08:08 Dose: 40 mg Glucagon (Glucagen) 1 mg IM ONCE PRN PRN Reason: Hypoglycemia Stop: 04/22/19 11:58 Glucose (Gluctose) 15 gm PO ONCE PRN PRN Reason: Hypoglycemia Stop: 04/22/19 11:58 Glucose (Gluctose) 30 gm PO ONCE PRN PRN Reason: Hypoglycemia Stop: 04/22/19 11:58 Dextrose (Dextrose 5%) 1,000 mls @ 100 mls/hr IVC .Q10H PRN PRN Reason: HYPOGLYCEMIA Stop: 04/22/19 11:58 Insulin Human Lispro (Humalog) 0 units SQ HS [facility]; Protocol Stop: 04/22/19 21:01 Last Admin: 10/21/18 20:16 Dose: Not Given Insulin Human Lispro (Humalog) 0 units SQ TIDAC [facility]; Protocol Stop: 04/22/19 12:01 Last Admin: 10/22/18 08:24 Dose: 2 units Metoprolol Tartrate (Lopressor) 25 mg PO BID [facility] Stop: 04/22/19 10:01 Last Admin: 10/22/18 08:08 Dose: 25 mg Naloxone HCl (Narcan) 0.4 mg IVP Q2MIN PRN PRN Reason: SEE COMMENTS Stop: 04/22/19 08:11 Potassium Chloride (Potassium Chloride) 10 meq PO DAILY [facility] Stop: 04/22/19 10:01 Last Admin: 10/22/18 08:08 Dose: 10 meq - Imaging and Cardiology Stress Test: report reviewed Echo: report reviewed Cardiac cath: report reviewed - EKG Interpretation EKG results cardiology: personally reviewed Consult Discharge Plan - Plan Referrals: Jose Seymour DO [Primary Care Provider] - 10/26/18 11:00 am
[2018-10-22] MEDS ORDERED: *HR* Heparin 5,000 UNIT/ML VIAL IVP PRN ×3 (11:52→21:00)
--- NOTE | 2018-10-22 16:13 | Internal Med Progress Note ---
Hospitalist Progress Note - Encounter Date of Encounter: 10/22/18 Time of Encounter: 16:09 - Subjective Interval History: I have seen and evaluated the patient at bedside. patient reports that he is feeling better, denies palpitations, nausea or vomiting, as well as chest pain. - Exam Vitals: Temp Pulse Resp BP Pulse Ox 98.1 F 62 14 111/68 92 10/22/18 15:23 10/22/18 15:23 10/22/18 15:23 10/22/18 15:23 10/22/18 15:23 Exam: Vitals: Reviewed. General: Alert and oriented x4. In no acute distress. Skin: Normal color, no rash, no lesions. HEENT: EOM, pupils equal, round and reactive. Cardiovascular: Irregularly, irregular, Normal S1 & S2, no rubs, murmurs or gallops. Lungs: CTA b/l, no wheezes or crackles. Abdomen: Obese, Soft, non-tender, no rigidity. Extremities: No deformity, no edema or tenderness, no joint swelling or clubbing. Neurological: Normal cognition and motor skills. Rest of the physical exam is non contributory - Assessment and Plan (1) Atrial fibrillation Current Visit: Yes Status: Chronic Assessment and Plan: rate better controlled today. patient started on carvedilol 3.125mg/PO BID Cardiology consulted recommended LHC on Wednesday due to patient significant Hx of CAD. Oral anticoagulation has been held as patient is scheduled for C on a heparin drip. (2) Diabetes mellitus Current Visit: Yes Status: Chronic Assessment and Plan: blood sugar is well controlled. patient is on Lispro medium dose sliding scale ac. will add levemir 5 units HS. carb controlled diet. NPO on Wednesday midnight. (3) Congestive heart failure Current Visit: Yes Status: Chronic Assessment and Plan: Not on acute exacerbation. patient euvolemic. total negative balance of 2.6 litters continue fluid restrictive strategies to 1.5 litters a day on a bb, will add an PETE when BP more stable. daily weight. (4) CAD (coronary artery disease), [place] coronary artery Current Visit: Yes Status: Chronic Assessment and Plan: Continue aspirin and atorvastatin. (5) Hypotension Current Visit: Yes Status: Resolved (6) COPD (chronic obstructive pulmonary disease) Current Visit: Yes Status: Chronic Assessment and Plan: Patient not on acute exacerbation. Chest is here to auscultation. Start bronchodilators every 4 hours when necessary. DVT Prophylaxis: Patient is on heparin drip. - Summary of Assessment and Plan Summary of Assessment and Plan: Patient to remain in the hospital due to A.fib, CAD, CHF. Scheduled for a [facility] on Wednesday. - Time Spent with Patient Total time spent is greater than 50% in coordination of care (as documented) at patient's floor/unit and/or counseling patient: Greater than 35 minutes (40) Plan of Care Discussed with: patient (and the nurse.) Internal Medicine: Result - Labs CBC & Chem 7: 10/22/18 09:26 10/22/18 09:26 Labs: Short CBC 10/22/18 Range/Units 09:26 WBC 11.6 H (4.3-11.1) K/mcL Hgb 11.2 L (12.9-16.9) g/dL Hct 37.7 (37.5-50.1) % Plt Count 228 (140-400) K/mcL Neutrophils # 9.5 H (1.6-8.9) K/mcL BMP 10/22/18 09:26 Sodium 138 Potassium 3.8 Chloride 101 Carbon Dioxide 31 H BUN 27 H Creatinine 1.28 Glucose 189 H Calcium 8.9 - Impressions Impressions Echocardiogram 10/21/18 14:58 Impressions: LVEF 30-35%, most LV clement not well visualized. Severe global left ventricular systolic dysfunction. Indeterminate diastolic function. Moderate right ventricular hypokinesis. Mild mitral regurgitation. Mild tricuspid regurgitation. Moderate pulmonary hypertension. Recommend repeat limited Echo with definity after rate control. Left Ventricular Wall Motion: Rest Echo Findings The apex, apical septal, mid inferior septal, basal inferior septal, apical lateral, mid anterior lateral and basal anterior lateral clement were hypokinetic. The apical inferior, mid inferior, basal inferior, apical anterior, mid anterior, basal anterior, mid anterior septal, mid inferior lateral, basal anterior septal and basal inferior lateral clement were not visualized. Findings: Study Quality * Technically sub-optimal due to poor echocardiographic windows. ECG Findings * Atrial fibrillation, RVR, BBB. Left Ventricle * LVEF 30-35%, most LV clement not well visualized. * Severe global left ventricular systolic dysfunction. * Normal LV chamber size and wall thickness. * Indeterminate diastolic function. * Definity echo contrast was not used. * Atypical septal motion consistent with bundle branch block. Right Ventricle * Normal right ventricular size. * Moderate right ventricular hypokinesis. Left Atrium * Normal left atrial size. Right Atrium * Normal right atrial size. Interatrial Septum * Interatrial septum not well evaluated. * No evidence of PFO by color Doppler. Aortic Valve * Moderately calcified aortic valve leaflets. * No aortic stenosis. * No aortic regurgitation. Mitral Valve * Mild mitral annular calcification * No mitral stenosis. * Mild mitral regurgitation. Tricuspid Valve * Normal tricuspid valve structure. * No tricuspid stenosis. * Mild tricuspid regurgitation. * Estimated RVSP is 58 mmHg. * Estimated RA pressure is 15 mmHg. * Moderate pulmonary hypertension. Pulmonic Valve * Pulmonic valve is not well visualized. * No pulmonic stenosis. * No pulmonic regurgitation. Aorta * Normally sized aortic root. Pericardium * The pericardium appears normal. IVC * The IVC is dilated. * < 50% respiratory change. Device lead * A device lead was visualized in the right atrium and right ventricle. 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 Diabetes mellitus complication status: with kidney complications Diabetes mellitus complication detail: with chronic kidney disease Chronic kidney disease stage: stage 2 (mild) Qualified Code(s): E11.22 - Type 2 diabetes mellitus with diabetic chronic kidney disease; N18.2 - Chronic kidney disease, stage 2 (mild); 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 transplanted heart: [place] heart Associated angina: without angina Qualified Code(s): I25.10 - Atherosclerotic heart disease of [place] coronary artery without angina pectoris (5) Hypotension Qualifiers: Hypotension type: hypotension due to drug Qualified Code(s): I95.2 - Hypotension due to drugs (6) COPD (chronic obstructive pulmonary disease) Qualifiers: COPD type: emphysema Emphysema type: panlobular Qualified Code(s): J43.1 - Panlobular emphysema
[2018-10-22] MEDS ORDERED: Albuterol 2.5 MG/3 ML NEBULIZER IH PRN (16:16)
[2018-10-22 21:18] LABS: Hematocrit 35.6 % (37.5-50.1); Hemoglobin 10.7 g/dL (12.9-16.9); Mean Corpuscular HGB Conc 30.1 g/dL (31.6-35.5); Mean Corpuscular Volume 83.2 fL (83.0-100.0); Mean Platelet Volume 9.8 fL (9.4-12.4); Platelet Count 215 K/mcL (140-400); Red Blood Count 4.28 M/mcL (4.19-5.50)
[2018-10-22 21:25] LABS: Heparin anti-factor XA UFH 0.71 IU/mL (0.30-0.70)
[2018-10-22 21:26] LABS: INR 1.7
[2018-10-22] MEDS: Heparin 25,000 UNIT/500 ML D5W 25,000 UNIT/500 ML BAG IVC SCH (22:05)
[2018-10-22] MEDS: Insulin DETEMIR 100 UNIT/ML X5UNITS SQ SCH (22:09)
[2018-10-23 05:47] LABS: Basophils % 0.4 %; Eosinophils # 0.2 K/mcL (0.0-0.6); Eosinophils % 1.6 %; Hematocrit 36.3 % (37.5-50.1); Immature Granulocytes % 0.5 % (0-4); Lymphocytes # 1.2 K/mcL (0.6-4.6); Mean Corpuscular HGB Conc 30.3 g/dL (31.6-35.5); Mean Corpuscular Hemoglobin 25.2 pg (28.0-33.3); Mean Corpuscular Volume 83.1 fL (83.0-100.0); Monocytes # 0.7 K/mcL (0.0-1.3); Monocytes % 6.2 %; Neutrophils # 8.9 K/mcL (1.6-8.9); Platelet Count 209 K/mcL (140-400); Red Blood Count 4.37 M/mcL (4.19-5.50); Red Cell Distribution Width 19.8 % (11.5-14.5); Segmented Neutrophils % 80.3 %
[2018-10-23 06:05] LABS: BUN/Creatinine Ratio 22 (6-26); Blood Urea Nitrogen 27 mg/dL (8-23); Carbon Dioxide 27 mEq/L (23-29); Chloride 102 mEq/L (98-107); Glucose 184 mg/dL (70-105); Magnesium 2.1 mg/dL (1.6-2.6); Osmolality,Calculated 294 (280-300); Phosphorous 3.7 mg/dL (2.7-4.5); Potassium 3.9 mEq/L (3.5-5.1); Sodium 137 mEq/L (136-145); eGFR For Non-African Americans 58 (> 60)
[2018-10-23] MEDS: Insulin LISPRO 300 UNITS/3 ML VIAL SQ SCH ×4 (08:38→20:27)
[2018-10-23] MEDS: Furosemide 40 MG/4 ML VIAL IVP SCH ×2 (08:40→17:25)
[2018-10-23] MEDS: Aspirin Enteric Coated 81 MG Tablet PO SCH (08:41)
--- NOTE | 2018-10-23 08:55 | Cardiology Progress Note ---
Date of Encounter: 10/23/18 Time of Encounter: 08:00 Assessment and Plan (1) Congestive heart failure Current Visit: Yes Status: Chronic Hx of diastolic CHF, last TTE 2017 (limited) demonstrated normal LVEF. CXR at [place]: pulm. vascular congestion. BNP 600's, previously normal. Rales noted on exam. TTE this admission shows reduced LVEF, 30-35% with global severe systolic dysfunction, moderate RV hypokinesis, mild MR, mild TR, and moderate PH Device check shows persistent AT with HR in the 130's, likely reduced EF tachycardia related; however given hx of obstructive CAD and multiple PCI's, recommend LHC prior to discharge--plan for Wednesday. Will optimize BB dose (metoprolol to coreg), consider ACEi/ARB prior to discharge if BP/renal function will tolerate. Agree with IV lasix--dyspnea improving. Cumulative I&O: -2473 mL Strict I&Os, daily weights, and Na/fluid restricted diet. Qualifiers: Heart failure type: systolic Heart failure chronicity: chronic Qualified Code(s): I50.22 - Chronic systolic (congestive) heart failure (2) Atrial fibrillation Current Visit: Yes Status: Chronic Hx of PAF, previously on Xarelto but discontinued secondary to hemoptysis. Of note, at that time was on triple therapy--asa, plavix, and Xarelto. No recurrent hemoptysis off Xarelto. Reports recent episodes of hematuria, however resolved after Urologic procedure. Device check completed 10/[address] Shayne Hardy--demonstrates multiple atrial high rates--which are chronic for patient. PAF noted. Currently AT. No concern for PMT. Given decreased LVEF, will stop CCB and uptitrate BB. On heparin gtt; anticipate resuming Eliquis s/p LHC ($0 copay). Long-term AC to be determined after LHC on Wednesday. Qualifiers: Atrial fibrillation type: paroxysmal Qualified Code(s): I48.0 - Paroxysmal atrial fibrillation (3) CAD (coronary artery disease), [place] coronary artery Current Visit: Yes Status: Chronic Hx of CAD s/p multiple PCI's. Last LHC (PTCA only) to high grade ISR of LCx. No chest pain/discomfort described. Continue asa, statin, BB. Qualifiers: [place] vs. transplanted heart: [place] heart Associated angina: without angina Qualified Code(s): I25.10 - Atherosclerotic heart disease of [place] coronary artery without angina pectoris Discussion w patient/family: The assessment and plan as outlined above was discussed with the patient and/or family members who expressed understanding and agreement. All questions were answered. Thank you for involving us in the care of your patient. Please call with any questions. The patient will be discussed and reviewed with Dr. Shayne Hardy; changes to be made accordingly. Subjective Principal diagnosis: Tachycardia,dyspnea Interval history: Seen and examined. Sitting up at bedside. No new complaints overnight, HR's controlled this AM. Dyspnea improved with IV lasix. No chest pain/discomfort. No abnormal bleeding described. Objective Vital Signs, Last 4 Hours Temp Pulse Resp BP Pulse Ox 10/23/18 07:47 98.0 F 64 16 106/63 95 General: Conversant, No Apparent Distress HEENT: Atraumatic, Normocephaly, Mucus Membranes Moist Neck: No JVD, Normal carotid pulses Cardiac: Reg Rate and Rhythm, Normal S1 and S2, No Murmur Lungs: Normal Breath Sounds, No Wheeze, Rales, Rhonchi Neuro: Alert and responsive, No focal deficits noted Abdomen: Soft, Non-Tender Skin: No rashes noted on visualized skin Musculoskeletal: No Chest Wall Tenderness Extremities: No Clubbing, No Cyanosis, No Edema, Normal Pulses Results 10/23/18 05:07 10/23/18 05:07 Lab Results 10/22/18 10/22/18 10/22/18 09:26 09:26 20:58 WBC 11.6 H 10.3 Hgb 11.2 L 10.7 L Hct 37.7 35.6 L Plt Count 228 215 INR Sodium 138 Potassium 3.8 Chloride 101 Carbon Dioxide 31 H BUN 27 H Creatinine 1.28 Glucose 189 H Calcium 8.9 Magnesium 2.0 10/22/18 10/23/18 10/23/18 20:58 05:07 05:07 WBC 11.1 Hgb 11.0 L Hct 36.3 L Plt Count 209 INR 1.7 Sodium 137 Potassium 3.9 Chloride 102 Carbon Dioxide 27 BUN 27 H Creatinine 1.21 Glucose 184 H Calcium 9.0 Magnesium 2.1 Active Medications Acetaminophen (Tylenol) 650 mg PO Q6HR PRN PRN Reason: Mild Pain/Fever Stop: 04/22/19 08:11 Albuterol Sulfate (Proventil Neb) 2.5 mg IH Q2H PRN; Protocol PRN Reason: Shortness Of Breath/Wheezing Stop: 04/23/19 16:17 Aspirin (Aspirin Ec) 81 mg PO DAILY [facility] Stop: 04/22/19 10:01 Last Admin: 10/22/18 08:08 Dose: 81 mg Atorvastatin Calcium (Lipitor) 20 mg PO 1700 [facility] Stop: 04/22/19 17:01 Last Admin: 10/22/18 17:12 Dose: 20 mg Carvedilol (Coreg) 3.125 mg PO BIDWM [facility]; Protocol Stop: 04/23/19 17:01 Last Admin: 10/22/18 17:12 Dose: 3.125 mg Dextrose/Water (Dextrose 50% (Syg)) 25 ml IVP AD PRN PRN Reason: Hypoglycemia Stop: 04/22/19 11:58 Docusate Sodium (Colace) 100 mg PO DAILY [facility]; Protocol Stop: 04/23/19 09:01 Last Admin: 10/22/18 08:08 Dose: 100 mg Ferrous Sulfate (Ferrous Sulfate) 325 mg PO BIDWM [facility] Stop: 04/22/19 10:01 Last Admin: 10/22/18 17:12 Dose: 325 mg Furosemide (Lasix) 40 mg IVP BIDDIURETIC [facility] Stop: 04/22/19 10:01 Last Admin: 10/22/18 17:12 Dose: 40 mg Glucagon (Glucagen) 1 mg IM ONCE PRN PRN Reason: Hypoglycemia Stop: 04/22/19 11:58 Glucose (Gluctose) 15 gm PO ONCE PRN PRN Reason: Hypoglycemia Stop: 04/22/19 11:58 Glucose (Gluctose) 30 gm PO ONCE PRN PRN Reason: Hypoglycemia Stop: 04/22/19 11:58 Heparin Sodium (Porcine) (Heparin) 3,900 unit 35 unit/kg (3900 unit) IVP Q6H PRN PRN Reason: SEE COMMENTS Stop: 04/23/19 21:01 Heparin Sodium (Porcine) (Heparin) 7,900 unit 70 unit/kg (7900 unit) IVP Q6HR PRN PRN Reason: SEE COMMENTS Stop: 04/23/19 21:01 Dextrose (Dextrose 5%) 1,000 mls @ 100 mls/hr IVC .Q10H PRN PRN Reason: HYPOGLYCEMIA Stop: 04/22/19 11:58 Heparin Sodium/Dextrose (Heparin 25,000 Unit/500 Ml D5w) 25,000 unit in 500 mls @ 31.418 mls/hr IVC .[id number] [facility]; Protocol Stop: 04/23/19 21:01 Last Titration: 10/23/18 06:18 Dose: 11.94 unit/kg/hr, 26.8 mls/hr Insulin Detemir (Levemir) 5 unit SQ HS [facility] Stop: 04/23/19 21:01 Last Admin: 10/22/18 22:09 Dose: 5 unit Insulin Human Lispro (Humalog) 0 units SQ HS [facility]; Protocol Stop: 04/22/19 21:01 Last Admin: 10/22/18 22:07 Dose: 3 unit Insulin Human Lispro (Humalog) 0 units SQ TIDAC [facility]; Protocol Stop: 04/22/19 12:01 Last Admin: 10/22/18 17:22 Dose: 2 units Naloxone HCl (Narcan) 0.4 mg IVP Q2MIN PRN PRN Reason: SEE COMMENTS Stop: 04/22/19 08:11 Potassium Chloride (Potassium Chloride) 10 meq PO DAILY [facility] Stop: 04/22/19 10:01 Last Admin: 10/22/18 08:08 Dose: 10 meq - Imaging and Cardiology Echo: report reviewed Cardiac cath: report reviewed Other Results: 12 hour tele: avg HR=65 SR. - EKG Interpretation EKG results cardiology: personally reviewed Consult Discharge Plan - Plan Referrals: Jose Seymour DO [Primary Care Provider] - 10/26/18 11:00 am
--- NOTE | 2018-10-23 11:18 | Internal Med Progress Note ---
Hospitalist Progress Note - Encounter Date of Encounter: 10/23/18 Time of Encounter: 11:15 - Subjective Interval History: I have seen and evaluated the patient at bedside. patient reports that his shortness of breath continue to improve. denies chest pain, light headedness or palpitations. - Exam Vitals: Temp Pulse Resp BP Pulse Ox 98.0 F 64 16 106/63 95 10/23/18 07:47 10/23/18 07:47 10/23/18 07:47 10/23/18 07:47 10/23/18 07:47 Exam: Vitals: Reviewed. General: Alert and oriented x4. In no acute distress. Skin: Normal color, no rash, no lesions. HEENT: EOM, pupils equal, round and reactive. Cardiovascular: Irregularly, irregular, Normal S1 & S2, no rubs, murmurs or gallops. Lungs: CTA b/l, no wheezes or crackles. Abdomen: Obese, Soft, non-tender, no rigidity. NABS in all 4 quadrants. Extremities: No edema. strength is 5/5 in the upper and lower ext. Neurological: Normal cognition. CN II-XII intact. Rest of the physical exam is non contributory - Assessment and Plan (1) Congestive heart failure Current Visit: Yes Status: Chronic Assessment and Plan: Not an acute exacerbation. total negative balance of 2.2 litters. Fluid restrictive strategies to 1.5 L a day. Continue furosemide 40 mg IV twice a day. On a beta camilo. as BP has been more stable will add low dose lisinopril. daily weight. (2) Atrial fibrillation Current Visit: Yes Status: Chronic Assessment and Plan: rate controlled on a bb. on a heparin drip, hold heparin drip at 4am, patient is scheduled for [facility] tomorrow morning cardiology recommendations appreciated. (3) CAD (coronary artery disease), [place] coronary artery Current Visit: Yes Status: Chronic Assessment and Plan: Continue aspirin 81 mg by mouth daily. And atorvastatin 20 mg by mouth at bedtime. (4) COPD (chronic obstructive pulmonary disease) Current Visit: Yes Status: Chronic Assessment and Plan: Not on acute exacerbation. patient is on bronchodilators Q$RT PRN (5) Diabetes mellitus Current Visit: Yes Status: Chronic Assessment and Plan: blood sugar has been well controlled. Patient is on levemir 5 units HS, plus lispro medium dose sliding scale ac. continue carb controlled diet. (6) Hypotension Current Visit: Yes Status: Resolved (7) UTI (urinary tract infection) Current Visit: Yes Status: Acute Assessment and Plan: patient was diagnosed with a UTI on the 09/21/18. urine culture: grew enterobacter amnegenus miller sensitive will start patient on ceftriaxone 1mg/iv daily, unclear patient has completed therapy DVT Prophylaxis: patient on a Heparin drip due to A.fib - Summary of Assessment and Plan Summary of Assessment and Plan: Patient to remain in the hospital. scheduled for [facility] tomorrow morning. - Time Spent with Patient Total time spent is greater than 50% in coordination of care (as documented) at patient's floor/unit and/or counseling patient: Greater than 35 minutes (40) Plan of Care Discussed with: patient (his wiffe and the nurse.) Internal Medicine: Result - Labs CBC & Chem 7: 10/23/18 05:07 10/23/18 05:07 Labs: Short CBC 10/22/18 10/23/18 Range/Units 20:58 05:07 WBC 10.3 11.1 (4.3-11.1) K/mcL Hgb 10.7 L 11.0 L (12.9-16.9) g/dL Hct 35.6 L 36.3 L (37.5-50.1) % Plt Count 215 209 (140-400) K/mcL Neutrophils # 8.9 (1.6-8.9) K/mcL BMP 10/23/18 05:07 Sodium 137 Potassium 3.9 Chloride 102 Carbon Dioxide 27 BUN 27 H Creatinine 1.21 Glucose 184 H Calcium 9.0 - ABG Interpretation ABG results: PT/INR, D-dimer PT 19.0 Seconds (9.4-12.1) H 10/22/18 20:58 Consult Discharge Plan - Plan Referrals: Jose Seymour DO [Primary Care Provider] - 10/26/18 11:00 am __ (1) Congestive heart failure Qualifiers: Heart failure type: systolic Heart failure chronicity: chronic Qualified Code(s): I50.22 - Chronic systolic (congestive) heart failure (2) Atrial fibrillation Qualifiers: Atrial fibrillation type: paroxysmal Qualified Code(s): I48.0 - Paroxysmal atrial fibrillation (3) CAD (coronary artery disease), [place] coronary artery Qualifiers: [place] vs. transplanted heart: [place] heart Associated angina: without angina Qualified Code(s): I25.10 - Atherosclerotic heart disease of [place] coronary artery without angina pectoris (4) COPD (chronic obstructive pulmonary disease) Qualifiers: COPD type: emphysema Emphysema type: panlobular Qualified Code(s): J43.1 - Panlobular emphysema (5) Diabetes mellitus Qualifiers: Diabetes mellitus type: type 2 Diabetes mellitus mcfp insulin use: with termite technician use Diabetes mellitus complication status: with kidney complications Diabetes mellitus complication detail: with chronic kidney disease Chronic kidney disease stage: stage 2 (mild) Qualified Code(s): E11.22 - Type 2 diabetes mellitus with diabetic chronic kidney disease; N18.2 - Chronic kidney disease, stage 2 (mild); Z79.4 - USP (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 insulin (6) Hypotension Qualifiers: Hypotension type: hypotension due to drug Qualified Code(s): I95.2 - Hypotension due to drugs (7) UTI (urinary tract infection) Qualifiers: Urinary tract infection type: site unspecified Hematuria presence: without hematuria Qualified Code(s): N39.0 - Urinary tract infection, site not specified
[2018-10-23] MEDS: Heparin 25,000 UNIT/500 ML D5W 25,000 UNIT/500 ML BAG IVC SCH (12:49)
[2018-10-23] MEDS: cefTRIAXone 1,000 MG in Water for inj. (sterile) 20 ML 10 ML IVP SCH (13:14)
[2018-10-23] MEDS: Insulin DETEMIR 100 UNIT/ML X5UNITS SQ SCH (20:28)
[2018-10-24] MEDS: Heparin 25,000 UNIT/500 ML D5W 25,000 UNIT/500 ML BAG IVC SCH (03:58)
[2018-10-24 05:36] LABS: Basophils # 0.1 K/mcL (0.0-0.2); Basophils % 0.4 %; Eosinophils # 0.2 K/mcL (0.0-0.6); Eosinophils % 1.5 %; Hematocrit 32.4 % (37.5-50.1); Hemoglobin 10.1 g/dL (12.9-16.9); Immature Granulocytes % 0.3 % (0-4); Lymphocytes # 1.2 K/mcL (0.6-4.6); Lymphocytes % 10.5 %; Mean Corpuscular HGB Conc 31.2 g/dL (31.6-35.5); Mean Corpuscular Hemoglobin 25.1 pg (28.0-33.3); Mean Corpuscular Volume 80.6 fL (83.0-100.0); Mean Platelet Volume 10.4 fL (9.4-12.4); Monocytes # 0.7 K/mcL (0.0-1.3); Monocytes % 6.2 %; Neutrophils # 9.6 K/mcL (1.6-8.9); Platelet Count 211 K/mcL (140-400); Red Blood Count 4.02 M/mcL (4.19-5.50); Red Cell Distribution Width 19.6 % (11.5-14.5); Segmented Neutrophils % 81.1 %
[2018-10-24 06:07] LABS: BUN/Creatinine Ratio 23 (6-26); Blood Urea Nitrogen 25 mg/dL (8-23); Calcium 8.7 mg/dL (8.6-10.3); Carbon Dioxide 30 mEq/L (23-29); Chloride 101 mEq/L (98-107); Glucose 172 mg/dL (70-105); Magnesium 1.9 mg/dL (1.6-2.6); Osmolality,Calculated 292 (280-300); Phosphorous 3.2 mg/dL (2.7-4.5); Potassium 3.7 mEq/L (3.5-5.1); Sodium 137 mEq/L (136-145); eGFR For Non-African Americans > 60 (> 60)
[2018-10-24] MEDS: Insulin LISPRO 300 UNITS/3 ML VIAL SQ SCH ×4 (07:16→20:36)
[2018-10-24] MEDS: Furosemide 40 MG/4 ML VIAL IVP SCH ×2 (09:01→17:19)
[2018-10-24] MEDS: Aspirin Enteric Coated 81 MG Tablet PO SCH (09:02)
[2018-10-24] MEDS: cefTRIAXone 1,000 MG in Water for inj. (sterile) 20 ML 10 ML IVP SCH (09:04)
[2018-10-24 09:30] LABS: INR 1.4; Prothrombin Time 15.8 Seconds (9.4-12.1)
[2018-10-24] MEDS ORDERED: *HR* Heparin 10,000 UNIT/10 ML VIAL ONE (11:21)
[2018-10-24] MEDS ORDERED: Heparin 1,000 UNITS/500 mL 500 ML ONE (11:21)
[2018-10-24] MEDS ORDERED: 0.9 % Sodium Chloride 1,000 ML ONE ×3 (11:21→12:22)
[2018-10-24] MEDS ORDERED: ISOVUE-370 200 ML INFUS..BTL ONE (11:21)
[2018-10-24] MEDS ORDERED: Nitroglycerin 1,000 MCG/10 ML VIAL IV ONE (11:21)
[2018-10-24] MEDS ORDERED: *HR* Midazolam HCl 2 MG/2 ML VIAL ONE (12:30)
--- NOTE | 2018-10-24 12:31 | Pre-Sedation Evaluation ---
Pre-sedation evaluation - Pre-sedation checklist Date of procedure: 10/24/18 Procedure: left heart cath Recent Vitals: Last Vital Signs Temp 97.3 F L 10/24/18 11:15 Pulse 63 10/24/18 11:15 Resp 16 10/24/18 11:15 BP 114/61 10/24/18 11:15 Pulse Ox 93 10/24/18 11:15 H&P (including ROS) documented in medical record: Yes Previous reaction to sedatives/anesthetics: No Dietary Status: NPO after Midnight Airway Assessment: Patient can open mouth completely, TMJ function normal Dentition: dentures removed Possible difficult airway: No ASA Classification *see protocol: CLASS III-Severe systemic disease Plan of Care: Pt appropriate candidate for procedure/moderate/conscious sedation, Risks/benefits of procedure/sedation discussed w/ patient/family, If not NPO; Risk of intake outweiged by necessity to perform procedure Cardiac Registry (Cardio Only) - Functional Capacity Functional Capacity: >=4 METS without symptoms - Clincal Frailty Scale Clinical Frailty Scale: Vulnerable
--- NOTE | 2018-10-24 12:54 | Internal Med Progress Note ---
Hospitalist Progress Note - Encounter Date of Encounter: 10/24/18 Time of Encounter: 12:56 - Subjective Interval History: I have seen and evaluated the patient at bedside. Patient report no distress. denies nausea, abdominal pain or distention as well as chest pain or shortness of breath. - Exam Vitals: Temp Pulse Resp BP Pulse Ox 97.3 F L 63 16 114/61 93 10/24/18 11:15 10/24/18 11:15 10/24/18 11:15 10/24/18 11:15 10/24/18 11:15 Exam: Vitals: Reviewed. General: Alert and oriented x4. In no acute distress. Skin: Normal color, no rash, no lesions. Cardiovascular: Irregularly, irregular, Normal S1 & S2, no rubs, murmurs or gallops. Lungs: CTA b/l, no wheezes or crackles. Abdomen: Obese, Soft, non-tender, no rigidity. NABS in all 4 quadrants. Extremities: No edema. strength is 5/5 in the upper and lower ext. Neurological: Normal cognition. CN II-XII intact. Rest of the physical exam is non contributory - Assessment and Plan (1) Congestive heart failure Current Visit: Yes Status: Chronic Assessment and Plan: patient is euvolemic with total negative balance of 2.8 litters Continue fluid restrictive strategies to 1.5 L a day. Daily weight, strict intake and output. Furosemide 40 mg twice a day. Continue carvedilol 3.125 mg by mouth twice a day. Lisinopril 2.5 mg by mouth daily (2) Atrial fibrillation Current Visit: Yes Status: Chronic Assessment and Plan: Rate controlled on a beta camilo. Patient is on a heparin drip which has been held as patient is scheduled for a left heart catheter. (3) CAD (coronary artery disease), [place] coronary artery Current Visit: Yes Status: Chronic Assessment and Plan: Continue aspirin and statin. Patient is scheduled for a left heart catheter today (4) COPD (chronic obstructive pulmonary disease) Current Visit: Yes Status: Chronic Assessment and Plan: Not an acute exacerbation. Continue bronchodilators when necessary. (5) Diabetes mellitus Current Visit: Yes Status: Chronic Assessment and Plan: Blood sugar has been uncontrolled. Patient is on a carb controlled diet. Continue Levemir 5 units at bedtime, on lispro medium dose sliding scale before meals. (6) Hypotension Current Visit: Yes Status: Resolved (7) UTI (urinary tract infection) Current Visit: Yes Status: Acute Assessment and Plan: Continue ceftriaxone 1 g IV daily. DVT Prophylaxis: Dizziness and heparin drip. - Summary of Assessment and Plan Summary of Assessment and Plan: Patient to remain in the hospital and scheduled for left heart catheter today. Possible discharge tomorrow morning - Time Spent with Patient Total time spent is greater than 50% in coordination of care (as documented) at patient's floor/unit and/or counseling patient: Greater than 35 minutes (40) Plan of Care Discussed with: patient (and the nurse.) Internal Medicine: Result - Labs CBC & Chem 7: 10/24/18 04:51 10/24/18 04:51 Labs: Short CBC 10/24/18 Range/Units 04:51 WBC 11.8 H (4.3-11.1) K/mcL Hgb 10.1 L (12.9-16.9) g/dL Hct 32.4 L (37.5-50.1) % Plt Count 211 (140-400) K/mcL Neutrophils # 9.6 H (1.6-8.9) K/mcL BMP 10/24/18 04:51 Sodium 137 Potassium 3.7 Chloride 101 Carbon Dioxide 30 H BUN 25 H Creatinine 1.10 Glucose 172 H Calcium 8.7 - ABG Interpretation ABG results: PT/INR, D-dimer PT 15.8 Seconds (9.4-12.1) H 10/24/18 09:05 Consult Discharge Plan - Plan Referrals: Jose Seymour DO [Primary Care Provider] - 10/26/18 11:00 am _ (1) Congestive heart failure Qualifiers: Heart failure type: systolic Heart failure chronicity: chronic Qualified Code(s): I50.22 - Chronic systolic (congestive) heart failure (2) Atrial fibrillation Qualifiers: Atrial fibrillation type: paroxysmal Qualified Code(s): I48.0 - Paroxysmal atrial fibrillation (3) CAD (coronary artery disease), [place] coronary artery Qualifiers: [place] vs. transplanted heart: [place] heart Associated angina: without angina Qualified Code(s): I25.10 - Atherosclerotic heart disease of [place] coronary artery without angina pectoris (4) COPD (chronic obstructive pulmonary disease) Qualifiers: COPD type: emphysema Emphysema type: panlobular Qualified Code(s): J43.1 - Panlobular emphysema (5) Diabetes mellitus Qualifiers: Diabetes mellitus type: type 2 Diabetes mellitus adjunct faculty for medical terminology insulin use: with adjunct faculty for medical terminology use Diabetes mellitus complication status: with kidney complications Diabetes mellitus complication detail: with chronic kidney disease Chronic kidney disease stage: stage 2 (mild) Qualified Code(s): E11.22 - Type 2 diabetes mellitus with diabetic chronic kidney disease; N18.2 - Chronic kidney disease, stage 2 (mild); Z79.4 - MCFP (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 insulin (6) Hypotension Qualifiers: Hypotension type: hypotension due to drug Qualified Code(s): I95.2 - Hypotension due to drugs (7) UTI (urinary tract infection) Qualifiers: Urinary tract infection type: site unspecified Hematuria presence: without hematuria Qualified Code(s): N39.0 - Urinary tract infection, site not specified
--- NOTE | 2018-10-24 13:17 | Electrocardiograph Report ---
[address] [address] Test Date: 2018-10-21 Pat Name: Darren Vizcarra Department: 113 Room: 3B44 Gender: Chilling Hood Operator: : 1940 Requested By: Nicholas Garcia Order Number: [id number] Reading MD: Randy Nieves Measurements Intervals [place] Rate: 128 P: 114 MT: 215 QRS: -52 QRSD: 200 T: 73 QT: 372 QTc: 448 Interpretive Statements ELECTRONIC VENTRICULAR PACEMAKER Electronically Signed On 10-24-2018 13:15:46 EST by Randy Nieves
--- NOTE | 2018-10-24 13:24 | Invasive Diagnostic Lab Proc ---
Name: Darren Vizcarra Date of Study: 10/24/2018 Date: 1940 Ht: 74.4in Medical Record#: [id number] Age: 78 Wt: 242.51lb Gender: Male BSA: 2.37 Order #: [id number] BMI: 30.79 Physicians Procedure Physician: Pa Alvarado DO Referring MD: Referring MD: Staff Name Position Time In Teresa Coles RT (R) Scrub 12:31 PM Terri Colin RN City Engineer 12:31 PM Kat Avalos RN Monitor 12:32 PM Procedures Performed Procedure L HRT ARTERY/VENTRICLE ANGIO Pre-Procedure Checklist Informed consent is complete signed and on chart. H&P is on chart. ID band is on and ID verified with patient. Patient NPO for procedure The procedure was described for the patient and questions were answered. ECG is on chart. Plan of Care Patient will tolerate the procedure without complications. Adequate level of comfort will be maintained. Hemodynamics will remain stable Patient will recover from procedure without complications. Respiratory function will be maintained. Cardiac rhythm will remain stable. Patient temperature will be maintained. Patient and/or family have verbalized understanding of the procedure. Patient Education Chief Complaint/Reason for Test: Cardiac Cath Developmental Category: Geriatric (65+ years) Developmentally Appropriate for Age: Yes Learning Barriers: None Education Needs: Plan of Care Education Method: Verbal Information Taught: Cardiac Cath Educational Evaluation: Able to repeat information Intravenous Access Time IV Size Location DC'd Fluid/Drip Rate Units RN 11:27 AM 18g 1 /" Patent On Arrival Rt Antecubital Allergies *HR* CODEINE codeine Homatropine hydrocodone Vital Signs Time BP (mmHg) HR (bpm) O2 Sat. RR (bpm) LOC 12:32 PM / % 5 = Fully awake and oriented or at pre-proc level 12:34 PM / % 4 = Oriented but drowsy 12:32 PM 138 / 78 65 94 % 21 12:37 PM 124 / 70 59 93 % 23 12:42 PM 119 / 69 76 93 % 22 12:47 PM 125 / 69 59 88 % 20 12:52 PM 138 / 72 61 86 % 16 12:57 PM 135 / 67 79 86 % 25 01:02 PM 129 / 75 62 96 % 23 01:07 PM 131 / 68 59 95 % 28 Procedural Medications Time Medication Dose Units Method Given By 12:33 PM Oxygen 2 L/min nasal cannula Terri Colin RN 12:33 PM Versed 2 mg Intravenous Terri Colin RN 12:41 PM Lidocaine 2% 10 ml Subcutaneous Pa Alvarado DO ASA Classification: CLASS III- Severe systemic disease (i.e. prior AMI, diabetes with vascular complications, morbid obesity) Isa Score Preprocedure Postprocedure Activity 2- Moves 4 extremities sustained head lift Activity 2- Moves 4 extremities sustained head lift Circulation 2- SBP +/= 20 points of pre-anesthetic level Circulation 2- SBP +/= 20 points of pre-anesthetic level Consciousness 2- Awake and alert oriented x 3 Consciousness 2- Awake and alert oriented x 3 O2 Saturation 2- Able to maintain O2 satruation of 92% on room air O2 Saturation 2- Able to maintain O2 satruation of 92% on room air Respiratory 2- Able to deep breathe and cough well Respiratory 2- Able to deep breathe and cough well Total Score 10 Total Score 10 Contrast Agent: Isovue Diagnostic Contrast: 60 ml Total Contrast: 60 ml Fluoro Dose: 57 mGy Procedure Log Time Note Enter By 12:30 PM Pt arrived to semiconductor lab technician 1 at 12:30 [email or web address] 12:31 PM Sign in performed according to hospital policy. Informed consent was obtained. [facility] 12:31 PM Case Start 12:31 PM CathStat 12:31 PM Vitals capture started with the following parameters, Patient=Adult, Interval=5 min, Initial Juzfllss=200 mmHg, Deflation Rate=3 mmHg, Cuff placed on Right Arm 12:31 PM Physician arrived 12:31 [facility] 12:31 PM Teresa Coles RT (R) Position: Scrub Time in: : [facility] 12:31 PM Meet and greet completed [facility] 12:32 PM Terri Colin RN Position: City Engineer Time in: 12:31 [facility] 12:32 PM Time: 12:32LOC: 5 = Fully awake and oriented or at pre-proc level [facility] 12:32 PM HR=65 bpm, MRLF=526/78 mmhg, SpO2=94.0 %, Resp=21 B/min, EtCO2=29 mmHg 12:32 PM Kat Avalos RN Position: Monitor Time in: 12:32 [facility] 12:32 PM Patient charges- Angio tray pack, Navilyst 3mm J, Pulse Oximetry and ACIST tubing and transducer [facility] 12:32 PM Time: 12:32 Oxygen on at 2 L/min per nasal cannula by Terri Colin RN [facility] 12:32 PM Hair removed from procedure site in procedure lab using clippers. Bilateral groin prepped with Chloraprep by Terri Colin RN, then patient was draped. Skin intact. kmavis 12:32 PM Time: 12:32 Patient comfortable and pain free: Yes [facility]avis 12:33 PM Procedure start 12:33 [facility] 12:33 PM Time: 12:33 Versed 2 mg Intravenous Given by Terri Colin RN [facility] 12:36 PM ASA Class CLASS III- Severe systemic disease (i.e. prior AMI, diabetes with vascular complications, morbid obesity) kmavis 12:37 PM HR=59 bpm, CRSY=985/70 mmhg, SpO2=93.0 %, Resp=23 B/min 12:37 PM Pressure channel 2 zeroed. 12:40 PM Recorded ECG: HR=69 Condition=Condition 1 12:41 PM Time out was performed according to hospital policy. Conscious sedation and anesthesia was achieved (see medication log with in this report above) [facility] 12:41 PM Time: 12:41 10 ml Lidocaine 2% to right groin Subcutaneous Given by Pa Alvarado DO [facility] 12:42 PM HR=76 bpm, BBFH=359/69 mmhg, SpO2=93.0 %, Resp=22 B/min, EtCO2=27 mmHg 12:43 PM Micro-Introducer Kit utilized for sheath placement kmavis 12:43 PM Access obtained by percutaneous puncture. 6Fr 10cm Terumo [place] sheath placed in right Femoral artery. [id number] kmavis 12:44 PM 6Fr FR 4 catheter inserted over the wire DNC kmavis 12:44 PM 0.035 145cm Navilyst 3mmJ wire [id number] avis 12:44 PM Recorded Pressure: LV, HR=60, Condition=Condition 1 (Left Ventricle) LV 109/6/14 12:45 PM Catheter crossed the aortic valve and was selectively placed in the left ventricle. Pressures recorded on pullback for left heart catheterization. kmavis 12:45 PM Recorded Pressure: Ao, Ao, HR=60, Condition=Condition 1 (Aorta) Ao 115/51/73, (Aorta) Ao 107/3/52 12:46 PM Bolus angiogram of left Ventricle complete [facility] 12:46 PM RCA angiography performed in multiple views. kmavis 12:46 PM Catheter removed [facility]avis 12:46 PM 6Fr FL 4 catheter inserted over the wire DNC kmavis 12:46 PM LCA angiography performed in multiple views. kmavis 12:47 PM HR=59 bpm, AIGU=674/69 mmhg, SpO2=88.0 %, Resp=20 B/min 12:47 PM Recorded Pressure: Ao, HR=60, Condition=Condition 1 (Aorta) Ao 118/52/78 12:48 PM Time: 12:33 Patient comfortable and pain free: Yes [facility] 12:49 PM Time: 12:34LOC: 4 = Oriented but drowsy [facility] 12:50 PM Recorded Pressure: Ao, HR=81, Condition=Condition 1 (Aorta) Ao 104/50/72 12:51 PM hand injected contrast to right groin kmavis 12:51 PM Catheter removed [facility] 12:52 PM HR=61 bpm, DJPT=706/72 mmhg, SpO2=86.0 %, Resp=16 B/min 12:52 PM Procedure completed at 12:52 10/24/2018 [facility] 12:52 PM Did you address MUNA flow and Dominance? Yes kmavis 12:55 PM Sign out completed: Radiation Dose 522.03 mGy, 56.6371 Gy/cm2 Fluoro Time: 1.2 Isovue 370 - 200ml contrast 60 ml given by Pa Alvarado DO. Complications: None. The patient was discharged out of the soap slabber in stable condition. Cardiac Rehab Consult needed: NoConfirmed administered medications: Yes [facility] 12:55 PM Isovue 370 - 200ml,1 Bottle(s) used. [facility]avis 12:55 PM Arterial sheath pulled using manual compression and V+ Pad for 15 minutes by Terri Colin RN [facility] 12:55 PM Estimated Blood Loss: minimal [facility] 12:55 PM Post Blood Pressure 138/72 [facility] 12:56 PM Information taught Cardiac Cath [facility] 12:56 PM Education needs Procedure, Plan of Care, Disease Process, and Obtaining further treatment [facility] 12:56 PM Learning barriers :None [facility] 12:56 PM Education Methods Verbal [facility] 12:56 PM Plavix, Effient or Brilinta given No [facility] 12:56 PM Delay to floor No [facility] 12:56 PM Family placed in consult room. [facility] 12:56 PM Complications: None [facility] 12:57 PM Coronary Dominance: right kmavis 12:57 PM HR=79 bpm, JUOZ=735/67 mmhg, SpO2=86 %, Resp=25 B/min 12:57 PM Lesion found in Proximal RCA. Pre Stenosis: 90 Pre MUNA Flow: kmavis 12:57 PM Lesion found in Mid LAD. Pre Stenosis: 80 Pre MUNA Flow: kmavis 12:58 PM Lesion found in 1st Marginal. Pre Stenosis: 80 Pre MUNA Flow: kmavis 12:58 PM Lesion found in Mid Circumflex. Pre Stenosis: 80 Pre MUNA Flow: kmavis 01:01 PM Right Coronary, Right Posterior Descending Arteries with Right Posterolateral and Acute Marginal branches with 90 % stenosis. If graft is supplying this area, 0 % stenosis avis 01:01 PM Mid/Distal Left Anterior Descending Coronary Artery and diagonal branches with 80% stenosis. If graft is supplying this area, 0 % stenosis [facility] 01:01 PM Circumflex, Obtuse Marginal, Left Posterior Descending, and Left Posterolateral Coronary Arteries with 80 % stenosis. If graft is supplying this area, 0 % stenosis [facility] 01:02 PM HR=62 bpm, LTJK=089/75 mmhg, SpO2=96 %, Resp=23 B/min 01:07 PM HR=59 bpm, QZVW=334/68 mmhg, SpO2=95.0 %, Resp=28 B/min 01:10 PM Cardiothoracic surgeon consulted by physician [facility] 01:11 PM Report given to Kae BONE Pt taken to 3B Room #44. 13:10 [facility] 01:15 PM Site status No bleeding/hematoma - Rt Groin as reported by Terri Colin RN at 13:15 [facility] 01:15 PM Opsite applied [facility] 01:15 PM Patient out of room: 13:15 [facility] Complications Complication None None Hemodynamics Pressures Site Systolic/A Wave Diastolic/V Wave Mean LV 109 6 14 AO 115 51 73 AO 107 3 52 AO 118 52 78 AO 104 50 72 Post Procedure Information Blood Pressure: 138/72 mmHg Post procedural instructions were given Surgery consult for CABG Site Checks Time Location Status Staff Sheath In? Note 01:15 PM Rt Groin No bleeding/hematoma Terri Colin RN Pulses Time Site Pre-Procedure Post-Procedure Note 10/24/2018 11:27:00 AM Bilateral DP & PT 2+ Updated by Terri Colin RN on 10/24/2018 1:16:02 PM electronically signed on 10/24/2018 1:17:17 PM with status of Final
[2018-10-24] MEDS: 0.9 % Sodium Chloride 1,000 ML IVC SCH (14:25)
--- NOTE | 2018-10-24 16:46 | Cardiothoracic Consult Note ---
Date of Encounter: 10/24/18 Time of Encounter: 16:32 Assessment and Plan (1) CAD (coronary artery disease), [place] coronary artery Current Visit: Yes Status: Chronic The patient is a 78-year-old type II diabetic, hypertensive moderately obese man with known CAD, cirrhosis, and COPD. He has undergone PCI with stent placement in the past. Although the patient has no complaints of substernal chest pain, he has noticed progressive fatigue and shortness of breath with dyspnea on exertion. A transthoracic echocardiogram reveals an LVEF 30-35% with severe global left ventricular systolic dysfunction. A cardiac catheterization performed today revealed severe 3 vessel CAD and an LVEF 25%. In particular, the patient has an 80% proximal LAD lesion, an 80% mid LCx in-stent restenosis, an 80% proximal OM1 lesion, and a 95% proximal RCA lesion. Although the patient ideally would benefit from CABG, his other medical conditions place him at a high/prohibitive operative risk. The STS risk achalasia reveals an operative mortality risk 16.24% (without taking into account his cirrhosis), renal failure risk 17.4%, permanent stroke risk 2.36%, prolonged ventilation risk 41.43%, deep sternal wound infection risk 0.70%, and reoperation risk 5.88%. I believe that the patient would benefit more from repeat stent placement that he would from operative intervention with a increased postoperative complication risk. I discussed this with Dr. Pa Alvarado, and he agrees. The patient and the family also understand the alternatives for treating his coronary artery disease, the benefits, and the risk of medical therapy v PCI with stent placement v CABG. The patient and the family are consenting to PCI with stent placement. The assessment and plan as outlined above was discussed with the patient and/or family members who expressed understanding and agreement. All questions were answered. Qualifiers: [place] vs. transplanted heart: [place] heart Associated angina: without angina Qualified Code(s): I25.10 - Atherosclerotic heart disease of [place] coronary artery without angina pectoris - History of Present Illness Consult date: 10/24/18 Requesting physician: Pa Alvarado Consult reason: CABG evaluation Chief complaint: Shortness of breath, fatigue History of present illness: Mr. Vizcarra is a 78 year old type II diabetic, hypertensive, moderately obese man with known CAD, cirrhosis, COPD and hypercholesterolemia. The patient has had numerous stents placed in the past and did well until recently. He began ex periencing progressive fatigue and increasing shortness of breath with dyspnea on exertion. He denies any substernal chest pain. He was evaluated at [facility] emergency department on October 21, 2018 where he was found to have atrial fibrillation. This is chronic, with the patient stating that he has had atrial fibrillation for at least 10 years. Given his cardiac risk profile as well as his presenting symptoms, he was admitted for further cardiac workup. A transthoracic echocardiogram revealed an LVEF 30% with severe global left ventricular systolic dysfunction. Moderate right ventricular hypokinesis was seen in the patient was found to have moderate pulmonary hypertension. Cardiac catheterization performed today revealed severe 3 vessel CAD and an LVEF 25%. I n particular, the patient has an 80% proximal LAD lesion, an 80% mid LCx in- stent restenosis, an 80% proximal OM1 lesion, and a 90% proximal RCA lesion. I have been asked to evaluate the patient for possible high risk CABG. Past Med Surg Social Fam HX - Past Medical History Medical history: atrial fibrillation, cirrhosis, CHF (chronic, diastolic), COPD, coronary artery disease, diabetes, hyperlipidemia, hypertension, kidney stones, myocardial infarction, renal disease, other (Melanoma (right ear)) Additional medical history: ANEMIA Psychiatric history: anxiety, depression - Past Surgical History Surgical History: angioplasty/stent, appendectomy, cancer surgery, cataract, cholecystectomy, herniorrhaphy (Left inguinal herniorrhaphy, right inguinal herniorrhaphy, umbilical herniorrhaphy), other (Cardiac ablation, excision of right ear melanoma), pacemaker Additional surgical history: 8 cardiac stents. 3 hernia repairs. cancer right ear - Social History Smoking Status: Former smoker Packs per day: 1PPD x50 YRS (quit 10 years ago) Smokeless Tobacco Status: No Alcohol use: heavy (In the past, none recently) Drug use: none Occupational status: retired Current living situation: Home - Independent Activity Level: Independent ambulation Recent Out of Country Travel Within the Last 8 Weeks: No Exposure or Possible Exposure to Illness During Travel: No - Family History Mother Family Member Ethnicity: Non- Living Status: Hx Family Cardiac Disorders: Yes (HD) Brother Family Member Ethnicity: Non- Living Status: Still Living Hx Family Cardiac Disorders: Yes Hx Family Cancer: Yes (Leukemia) Hx Family Endocrine Disorder: Yes (DM) Sister Family Member Ethnicity: Non- Living Status: Hx Family Cardiac Disorders: Yes (HD) Hx Family Cancer: Yes Father Family Member Ethnicity: Non- Living Status: Hx Family Cardiac Disorders: Yes Hx Family Respiratory Disorders: No Hx Family Cancer: No Hx Family GI Disorders: No Hx Family Endocrine Disorder: Yes (DM) Hx Family Neuromuscular Disorders: No Hx Family Neurologic Disorders: Yes (stroke) Hx Family HEENT Disorders: No Hx Family Autoimmune Disorders: No Medications and Allergies Albuterol Sulfate [Albuterol Inhaler] 1 puff IH Q4H PRN 08/21/15 [History] Atorvastatin Calcium [Lipitor] 20 mg PO 1700 08/21/15 [History] Bupropion HCl [Wellbutrin Xl] 300 mg PO DAILY 08/21/15 [History] Fluticasone/Salmeterol [Advair 250-50 Diskus] 1 puff IH BID 08/21/15 [History] Insulin Glargine,Hum.rec.anlog [Lantus Solostar] 60 unit SQ HS 08/21/15 [History] Folic Acid 1 mg PO DAILY 12/18/15 [History] Insulin LISPRO [Humalog] 0 unit SQ TIDWM 06/19/16 [History] Clopidogrel [Plavix] 75 mg PO DAILY #30 tablet 06/20/16 [Rx] Potassium Chloride 10 meq PO DAILY #30 tab.er.prt 11/03/16 [Rx] [place]-3/Dha/Epa/Fish Oil [Fish Oil 1,000 mg Softgel] 1 cap PO TID 12/04/16 [History] Oxygen 2 l NS HS PRN 12/04/16 [History] Magnesium Oxide [Magnesium] 400 mg PO BID 04/16/17 [History] Ferrous Gluconate 324 mg PO BID 08/13/17 [History] Aspirin [Adult Aspirin Regimen] 81 mg PO DAILY 01/06/18 [History] Loratadine [Allergy Relief] 10 mg PO DAILY 04/15/18 [History] Pantoprazole Sodium 40 mg PO DAILY 04/15/18 [History] Tiotropium [Spiriva] 1 puff IH DAILY 04/15/18 [History] Cholecalciferol (Vitamin D3) [Vitamin D3] 2,000 unit PO BID 05/11/18 [History] Docusate [Colace] 100 mg PO DAILY 05/11/18 [History] Sertraline [Zoloft] 200 mg PO DAILY 05/11/18 [History] Ascorbic Acid [Vitamin C] 500 mg PO BID 07/28/18 [History] Ipratropium/Albuterol Neb [Duoneb] 3 ml IH Q6HR PRN 07/28/18 [History] Metoprolol [Lopressor] 12.5 mg PO QAM 07/28/18 [History] Nitroglycerin [Nitrostat] 0.4 mg SL Q5MIN PRN 07/28/18 [History] Furosemide [Lasix] 40 mg PO DAILY 09/05/18 [History] Hydrocortisone 2.5% CREAM [Cortaid] 1 appl TP AD #1 tube 09/05/18 [Rx] Metoprolol [Lopressor] 25 mg PO QPM 10/21/18 [History] Tamsulosin [Flomax] 0.4 mg PO DAILY 10/21/18 [History] Allergy/AdvReac Type Severity Reaction Status Date / Time codeine Allergy Difficulty Verified 09/05/18 13:50 Breathing Homatropine AdvReac Insomnia Verified 09/05/18 13:50 [From Homatropaire] hydrocodone AdvReac Insomnia Verified 09/05/18 13:50 All Systems Review: The remainder of the systems were reviewed and are negative Physical Examination Vital Signs, Last 4 Hours Pulse BP Pulse Ox 10/24/18 16:30 63 129/78 96 10/24/18 15:30 60 123/72 97 10/24/18 15:00 60 125/70 95 10/24/18 14:30 60 114/59 95 10/24/18 14:15 66 136/71 97 10/24/18 14:00 63 126/75 98 10/24/18 13:45 63 126/75 97 10/24/18 13:30 64 116/67 95 General: Conversant, No Apparent Distress HEENT: Atraumatic, Normocephaly, Trachea midline Neck: No JVD, Normal carotid pulses Cardiac: Normal S1 and S2, No Murmur, Other (Irregular rate and rhythm (atrial fibrillation)) Lungs: Normal Breath Sounds, No Wheeze, Rales, Rhonchi Neuro: Alert and responsive, No focal deficits noted, Motor nerves intact, Sensory nerves intact Vascular: Normal capillary refill Abdomen: Soft, Non-tender, Other (Obese) Skin: No rashes noted on visualized skin Musculoskeletal: No Chest Wall Tenderness Extremities: No Clubbing, No Cyanosis, No Edema Results 10/24/18 04:51 10/24/18 04:51 Lab Results, Last 24 hours 10/24/18 10/24/18 10/24/18 04:51 04:51 09:05 WBC 11.8 H Hgb 10.1 L Hct 32.4 L Plt Count 211 INR 1.4 Sodium 137 Potassium 3.7 Chloride 101 Carbon Dioxide 30 H BUN 25 H Creatinine 1.10 Glucose 172 H Calcium 8.7 Magnesium 1.9 Consult Discharge Plan - Plan Referrals: Jose Seymour DO [Primary Care Provider] - 10/26/18 11:00 am
[2018-10-24] MEDS: Insulin DETEMIR 100 UNIT/ML X5UNITS SQ SCH (20:37)
[2018-10-25] MEDS: 0.9 % Sodium Chloride 1,000 ML IVC SCH (02:59)
[2018-10-25 06:35] LABS: Basophils # 0.1 K/mcL (0.0-0.2); Basophils % 0.5 %; Eosinophils # 0.2 K/mcL (0.0-0.6); Eosinophils % 1.7 %; Hematocrit 34.4 % (37.5-50.1); Hemoglobin 10.5 g/dL (12.9-16.9); Immature Granulocytes % 0.5 % (0-4); Lymphocytes % 9.5 %; Mean Corpuscular HGB Conc 30.5 g/dL (31.6-35.5); Mean Corpuscular Hemoglobin 25.1 pg (28.0-33.3); Mean Corpuscular Volume 82.3 fL (83.0-100.0); Mean Platelet Volume 10.3 fL (9.4-12.4); Monocytes # 0.7 K/mcL (0.0-1.3); Monocytes % 6.8 %; Neutrophils # 8.2 K/mcL (1.6-8.9); Platelet Count 215 K/mcL (140-400); Red Blood Count 4.18 M/mcL (4.19-5.50); Red Cell Distribution Width 19.3 % (11.5-14.5)
[2018-10-25 06:50] LABS: BUN/Creatinine Ratio 21 (6-26); Blood Urea Nitrogen 21 mg/dL (8-23); Calcium 9.1 mg/dL (8.6-10.3); Carbon Dioxide 27 mEq/L (23-29); Chloride 102 mEq/L (98-107); Glucose 191 mg/dL (70-105); Osmolality,Calculated 294 (280-300); Phosphorous 3.1 mg/dL (2.7-4.5); Potassium 4.2 mEq/L (3.5-5.1); Sodium 138 mEq/L (136-145); eGFR For Non-African Americans > 60 (> 60)
[2018-10-25] MEDS: Insulin LISPRO 300 UNITS/3 ML VIAL SQ SCH ×2 (08:12→12:12)
[2018-10-25] MEDS: Furosemide 40 MG/4 ML VIAL IVP SCH (08:35)
[2018-10-25] MEDS: Aspirin Enteric Coated 81 MG Tablet PO SCH (08:36)
[2018-10-25] MEDS: cefTRIAXone 1,000 MG in Water for inj. (sterile) 20 ML 10 ML IVP SCH (08:36)
[2018-10-25] MEDS ORDERED: Apixaban 5 MG TABLET PO SCH (10:15)
--- NOTE | 2018-10-25 10:24 | Internal Med Progress Note ---
Hospitalist Progress Note - Encounter Date of Encounter: 10/25/18 Time of Encounter: 10:22 - Subjective Interval History: Patient is waiting for [facility] with PCI today. Denies chest pain, shortness of breath. - Exam Vitals: Temp Pulse Resp BP Pulse Ox 97.7 F 103 16 124/66 94 10/25/18 07:16 10/25/18 07:16 10/25/18 07:16 10/25/18 07:16 10/25/18 07:16 Exam: Vitals: Reviewed. General: Alert and oriented x4. In no acute distress. Skin: Normal color, no rash, no lesions. Cardiovascular: Irregularly, irregular, Normal S1 & S2, no rubs, murmurs or gallops. Lungs: CTA b/l, no wheezes or crackles. Abdomen: Obese, Soft, non-tender, no rigidity. Bowel sounds present. Extremities: No edema. Posterior tibial pulses 2/4 and equal. Neurological: Normal cognition. CN II-XII intact. - Assessment and Plan (1) CAD (coronary artery disease), [place] coronary artery Current Visit: Yes Status: Chronic Assessment and Plan: [facility] showed severe 3(-4) vessel disease: 80% mid LAD, 80% in stent stenosis mid AV circumflex, 80% proximal 1st marginal, 90% proximal RCA Patient spoke with cardiothoracic surgery about [facility] with PCI vs CABG. Patient is not a good surgical candidate. Plan for [facility] with staged PCI today. (2) Systolic CHF, acute on chronic Current Visit: Yes Status: Acute Assessment and Plan: LHC 10/24/18 showed EF 25%, decreased from echo 10/21/18 30-35% fluid restriction to 1.5 L/day lasix 40 mg IV BID daily weights (3) Atrial fibrillation Current Visit: Yes Status: Chronic Assessment and Plan: rate controlled on BB - carvedilol 3.125 mg BID (4) COPD (chronic obstructive pulmonary disease) Current Visit: Yes Status: Chronic Assessment and Plan: chronic, stable - not in exacerbation (5) Diabetes mellitus Current Visit: Yes Status: Chronic Assessment and Plan: ADA diet levemir 5 units qhs medium dose SSI (6) UTI (urinary tract infection) Current Visit: Yes Status: Acute Assessment and Plan: patient was diagnosed with a UTI on the 09/21/18. urine culture: grew en terobacter amnegenus miller sensitive treated with 3 days of rocephin DVT Prophylaxis: eliquis - Time Spent with Patient Total time spent is greater than 50% in coordination of care (as documented) at patient's floor/unit and/or counseling patient: Internal Medicine: Result - Labs CBC & Chem 7: 10/25/18 06:04 10/25/18 06:04 Labs: Short CBC 10/25/18 Range/Units 06:04 WBC 10.2 (4.3-11.1) K/mcL Hgb 10.5 L (12.9-16.9) g/dL Hct 34.4 L (37.5-50.1) % Plt Count 215 (140-400) K/mcL Neutrophils # 8.2 (1.6-8.9) K/mcL BMP 10/25/18 06:04 Sodium 138 Potassium 4.2 Chloride 102 Carbon Dioxide 27 BUN 21 Creatinine 1.00 Glucose 191 H Calcium 9.1 - ABG Interpretation ABG results: PT/INR, D-dimer PT 15.8 Seconds (9.4-12.1) H 10/24/18 09:05 Consult Discharge Plan - Plan Referrals: Cece Cox, SPOT WASHER [Advanced Practice Nurse] - 10/31/18 11:00 am (1) CAD (coronary artery disease), [place] coronary artery Qualifiers: [place] vs. transplanted heart: [place] heart Associated angina: without angina Qualified Code(s): I25.10 - Atherosclerotic heart disease of [place] coronary artery without angina pectoris (3) Atrial fibrillation Qualifiers: Atrial fibrillation type: paroxysmal Qualified Code(s): I48.0 - Paroxysmal atrial fibrillation (4) COPD (chronic obstructive pulmonary disease) Qualifiers: COPD type: emphysema Emphysema type: panlobular Qualified Code(s): J43.1 - Panlobular emphysema (5) Diabetes mellitus Qualifiers: Diabetes mellitus type: type 2 Diabetes mellitus termite inspector insulin use: with halfway use Diabetes mellitus complication status: with kidney complications Diabetes mellitus complication detail: with chronic kidney disease Chronic kidney disease stage: stage 2 (mild) Qualified Code(s): E11.22 - Type 2 diabetes mellitus with diabetic chronic kidney disease; N18.2 - Chronic kidney disease, stage 2 (mild); 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
--- NOTE | 2018-10-25 11:09 | Cardiology Progress Note ---
Date of Encounter: 10/25/18 Time of Encounter: 10:00 Assessment and Plan (1) Congestive heart failure Current Visit: Yes Status: Chronic Hx of diastolic CHF, last TTE 2017 (limited) demonstrated normal LVEF. CXR at [place]: pulm. vascular congestion. BNP 600's, previously normal. Rales noted on exam. TTE this admission shows reduced LVEF, 30-35% with global severe systolic dysfunction, moderate RV hypokinesis, mild MR, mild TR, and moderate PH Device check shows persistent AT with HR in the 130's, likely reduced EF tachycardia related [facility] 10/24--3v CAD, CT surgery consulted and recommends PCI given high risk CABG candidate; reviewed [facility] films with both Dr. Daley and Dr. Alejandrina Hardy today, do not recommend staged PCI as inpatient at this time. Continue medical therapy (coreg) to improve HR control; will continue Eliquis for AC and plavix. If patient tolerates without hematuria/hemoptysis and symptoms do not improve (dyspnea, CHF) at follow-up; consider staged PCI to ISR of LCx at that time. RCA is small, non-dominant, OM unchanged, and LAD appears to have moderate non-obstructive CAD--pt. remains chest pain free. Continue coreg and ACEi. Euvolemic upon exam, recommend transition to po lasix upon discharge. Cumulative I&O: -> 2L mL Strict I&Os, daily weights, and Na/fluid restricted diet. Will arrange for follow-up with [facility] in 1-2 weeks. Qualifiers: Heart failure type: systolic Heart failure chronicity: chronic Qualified Code(s): I50.22 - Chronic systolic (congestive) heart failure (2) Atrial fibrillation Current Visit: Yes Status: Chronic Hx of PAF, previously on Xarelto but discontinued secondary to hemoptysis. Of note, at that time was on triple therapy--asa, plavix, and Xarelto. No recurrent hemoptysis off Xarelto. Reports recent episodes of hematuria, however resolved after Urologic procedure. Device check completed 10/[address] Shayne Hardy--demonstrates multiple atrial high rates--which are chronic for patient. PAF noted. Currently AT. No concern for PMT. Given decreased LVEF, will stop CCB and start Coreg for rate control. 12 hour tele: avg HR=65 paced. Eliquis ($0 co-pay) resumed this AM. Continue to cautiously monitor H/H and signs of abnormal bleeding in the outpatient setting. Qualifiers: Atrial fibrillation type: paroxysmal Qualified Code(s): I48.0 - Paroxysmal atrial fibrillation (3) CAD (coronary artery disease), [place] coronary artery Current Visit: Yes Status: Chronic Hx of CAD s/p multiple PCI's. Last LHC (PTCA only) to high grade ISR of LCx. No chest pain/discomfort described. Plan as above. Recommend coreg, statin, and plavix. No asa due to Eliquis. Qualifiers: [place] vs. transplanted heart: [place] heart Associated angina: without angina Qualified Code(s): I25.10 - Atherosclerotic heart disease of [place] coronary artery without angina pectoris Discussion w patient/family: The assessment and plan as outlined above was discussed with the patient and/or family members who expressed understanding and agreement. All questions were an swered. Thank you for involving us in the care of your patient. Please call with any questions. The patient will be discussed and reviewed with Dr. Daley; changes to be made accordingly. Subjective Principal diagnosis: Tachycardia,dyspnea Interval history: Seen and examined. Sitting up at bedside. No chest pain/discomfort upon exam. Long discussion regarding plan of care with patient, spouse, and family. Denies abnormal bleeding. Objective Vital Signs, Last 4 Hours Temp Pulse Resp BP Pulse Ox 10/25/18 07:16 97.7 F 103 16 124/66 94 General: Conversant, No Apparent Distress HEENT: Atraumatic, Normocephaly, Mucus Membranes Moist Neck: No JVD, Normal carotid pulses Cardiac: Reg Rate and Rhythm, Normal S1 and S2, No Murmur Lungs: Normal Breath Sounds, No Wheeze, Rales, Rhonchi Neuro: Alert and responsive, No focal deficits noted Abdomen: Soft, Non-Tender Skin: No rashes noted on visualized skin Musculoskeletal: No Chest Wall Tenderness Extremities: No Clubbing, No Cyanosis, No Edema, Normal Pulses Results 10/25/18 06:04 10/25/18 06:04 Lab Results 10/25/18 10/25/18 06:04 06:04 WBC 10.2 Hgb 10.5 L Hct 34.4 L Plt Count 215 Sodium 138 Potassium 4.2 Chloride 102 Carbon Dioxide 27 BUN 21 Creatinine 1.00 Glucose 191 H Calcium 9.1 Magnesium 2.0 Active Medications Acetaminophen (Tylenol) 650 mg PO Q6HR PRN PRN Reason: Mild Pain/Fever Stop: 04/22/19 08:11 Last Admin: 10/25/18 10:42 Dose: 650 mg Albuterol Sulfate (Proventil Neb) 2.5 mg IH Q2H PRN; Protocol PRN Reason: Shortness Of Breath/Wheezing Stop: 04/23/19 16:17 Apixaban (Eliquis) 5 mg PO BID [facility] Stop: 04/26/19 10:16 Aspirin (Aspirin Ec) 81 mg PO DAILY [facility] Stop: 04/22/19 10:01 Last Admin: 10/25/18 08:36 Dose: 81 mg Atorvastatin Calcium (Lipitor) 20 mg PO 1700 [facility] Stop: 04/22/19 17:01 Last Admin: 10/24/18 17:18 Dose: 20 mg Carvedilol (Coreg) 3.125 mg PO BIDWM [facility]; Protocol Stop: 04/23/19 17:01 Last Admin: 10/25/18 08:36 Dose: 3.125 mg Dextrose/Water (Dextrose 50% (Syg)) 25 ml IVP AD PRN PRN Reason: Hypoglycemia Stop: 04/22/19 11:58 Docusate Sodium (Colace) 100 mg PO DAILY [facility]; Protocol Stop: 04/23/19 09:01 Last Admin: 10/25/18 08:35 Dose: 100 mg Ferrous Sulfate (Ferrous Sulfate) 325 mg PO BIDWM [facility] Stop: 04/22/19 10:01 Last Admin: 10/25/18 08:36 Dose: 325 mg Furosemide (Lasix) 40 mg IVP BIDDIURETIC [facility] Stop: 04/22/19 10:01 Last Admin: 10/25/18 08:35 Dose: 40 mg Glucagon (Glucagen) 1 mg IM ONCE PRN PRN Reason: Hypoglycemia Stop: 04/22/19 11:58 Glucose (Gluctose) 15 gm PO ONCE PRN PRN Reason: Hypoglycemia Stop: 04/22/19 11:58 Glucose (Gluctose) 30 gm PO ONCE PRN PRN Reason: Hypoglycemia Stop: 04/22/19 11:58 Dextrose (Dextrose 5%) 1,000 mls @ 100 mls/hr IVC .Q10H PRN PRN Reason: HYPOGLYCEMIA Stop: 04/22/19 11:58 Insulin Detemir (Levemir) 5 unit SQ HS [facility] Stop: 04/23/19 21:01 Last Admin: 10/24/18 20:37 Dose: 5 unit Insulin Human Lispro (Humalog) 0 units SQ HS [facility]; Protocol Stop: 04/22/19 21:01 Last Admin: 10/24/18 20:36 Dose: 2 unit Insulin Human Lispro (Humalog) 0 units SQ TIDAC [facility]; Protocol Stop: 04/22/19 12:01 Last Admin: 10/25/18 08:12 Dose: Not Given Lisinopril (Zestril) 2.5 mg PO DAILY [facility]; Protocol Stop: 04/25/19 09:01 Last Admin: 10/25/18 08:35 Dose: 2.5 mg Naloxone HCl (Narcan) 0.4 mg IVP Q2MIN PRN PRN Reason: SEE COMMENTS Stop: 04/22/19 08:11 Potassium Chloride (Potassium Chloride) 10 meq PO DAILY [facility] Stop: 04/22/19 10:01 Last Admin: 10/25/18 08:35 Dose: 10 meq - Imaging and Cardiology Echo: report reviewed Cardiac cath: report reviewed Other Results: 12 hour tele: avg HR=65 paced. - EKG Interpretation EKG results cardiology: personally reviewed Consult Discharge Plan - Plan Referrals: Cece Cox, ASSESSMENT NURSE [Advanced Practice Nurse] - 10/31/18 11:00 am
[2018-10-25 11:39] VITALS: BP 112/53
--- NOTE | 2018-10-25 13:40 | Discharge Summary ---
<OsirisrobbSabina denton - Last Filed: 10/25/18 13:33> Orders not resulted at time of discharge: Pending orders 10/25/18 13:03 XR foot 3V LT [XR] Stat Date of Encounter: 10/25/18 Time of Encounter: 13:34 - Discharge Diagnosis (1) CAD (coronary artery disease), [place] coronary artery Priority: Primary Status: Chronic Qualifiers: [place] vs. transplanted heart: [place] heart Associated angina: without angina Qualified Code(s): I25.10 - Atherosclerotic heart disease of [place] coronary artery without angina pectoris (2) Systolic CHF, acute on chronic Priority: Primary Status: Acute (3) Atrial fibrillation Priority: Secondary Status: Chronic Qualifiers: Atrial fibrillation type: paroxysmal Qualified Code(s): I48.0 - Paroxysmal atrial fibrillation (4) COPD (chronic obstructive pulmonary disease) Priority: Secondary Status: Chronic Qualifiers: COPD type: emphysema Emphysema type: panlobular Qualified Code(s): J43.1 - Panlobular emphysema (5) Diabetes mellitus Priority: Secondary Status: Chronic Qualifiers: Diabetes mellitus type: type 2 Diabetes mellitus fpc insulin use: with casket trimmer use Diabetes mellitus complication status: with kidney complications Diabetes mellitus complication detail: with chronic kidney disease Chronic kidney disease stage: stage 2 (mild) Qualified Code(s): E11.22 - Type 2 diabetes mellitus with diabetic chronic kidney disease; N18.2 - Chronic kidney disease, stage 2 (mild); Z79.4 - car scrubber (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 insulin (6) UTI (urinary tract infection) Priority: Secondary Status: Acute Qualifiers: Urinary tract infection type: site unspecified Hematuria presence: without hematuria Qualified Code(s): N39.0 - Urinary tract infection, site not specified Hospital course: Mr. Vizcarra is a 78 year old male admitted for exertional dyspnea and fatigue. He was found to have severe 3 vessel CAD on [facility]. After multiple discussions with the patient and cardiology, interventional cardiology, and cardiothoracic person rgery it was decided that the patient should unergo [facility] with staged PCI outpatient. - Time Spent with Patient Total time spent providing and/or coordinating discharge services: - Discharge Medications Prescriptions: Apixaban [Eliquis] 5 mg PO BID 30 Days #30 tablet Carvedilol [Coreg] 3.125 mg PO BIDWM 30 Days #60 tablet Home Medications: Albuterol Sulfate [Albuterol Inhaler] 1 puff IH Q4H PRN 08/21/15 [History] Atorvastatin Calcium [Lipitor] 20 mg PO 1700 08/21/15 [History] Bupropion HCl [Wellbutrin Xl] 300 mg PO DAILY 08/21/15 [History] Fluticasone/Salmeterol [Advair 250-50 Diskus] 1 puff IH BID 08/21/15 [History] Insulin Glargine,Hum.rec.anlog [Lantus Solostar] 60 unit SQ HS 08/21/15 [Histor y] Folic Acid 1 mg PO DAILY 12/18/15 [History] Insulin LISPRO [Humalog] 0 unit SQ TIDWM 06/19/16 [History] Clopidogrel [Plavix] 75 mg PO DAILY #30 tablet 06/20/16 [Rx] Potassium Chloride 10 meq PO DAILY #30 tab.er.prt 11/03/16 [Rx] [place]-3/Dha/Epa/Fish Oil [Fish Oil 1,000 mg Softgel] 1 cap PO TID 12/04/16 [History] Oxygen 2 l NS HS PRN 12/04/16 [History] Magnesium Oxide [Magnesium] 400 mg PO BID 04/16/17 [History] Ferrous Gluconate 324 mg PO BID 08/13/17 [History] Aspirin [Adult Aspirin Regimen] 81 mg PO DAILY 01/06/18 [History] Loratadine [Allergy Relief] 10 mg PO DAILY 04/15/18 [History] Pantoprazole Sodium 40 mg PO DAILY 04/15/18 [History] Tiotropium [Spiriva] 1 puff IH DAILY 04/15/18 [History] Cholecalciferol (Vitamin D3) [Vitamin D3] 2,000 unit PO BID 05/11/18 [History] Docusate [Colace] 100 mg PO DAILY 05/11/18 [History] Sertraline [Zoloft] 200 mg PO DAILY 05/11/18 [History] Ascorbic Acid [Vitamin C] 500 mg PO BID 07/28/18 [History] Ipratropium/Albuterol Neb [Duoneb] 3 ml IH Q6HR PRN 07/28/18 [History] Nitroglycerin [Nitrostat] 0.4 mg SL Q5MIN PRN 07/28/18 [History] Furosemide [Lasix] 40 mg PO DAILY 09/05/18 [History] Hydrocortisone 2.5% CREAM [Cortaid] 1 appl TP AD #1 tube 09/05/18 [Rx] Tamsulosin [Flomax] 0.4 mg PO DAILY 10/21/18 [History] Apixaban [Eliquis] 5 mg PO BID 30 Days #30 tablet 10/25/18 [Rx] Carvedilol [Coreg] 3.125 mg PO BIDWM 30 Days #60 tablet 10/25/18 [Rx] Allergies/Adverse Reactions: Allergy/AdvReac Type Severity Reaction Status Date / Time codeine Allergy Difficulty Verified 09/05/18 13:50 Breathing Homatropine AdvReac Insomnia Verified 09/05/18 13:50 [From Homatropaire] hydrocodone AdvReac Insomnia Verified 09/05/18 13:50 Date of admission: 10/22/18 16:23 Primary care physician: Jose Seymour DO Consults: 10/21/18 08:13 Consult to Electrophysiology (EP) [CONS] Routine Consulting Provider: Electrophysiology Tiffany Reason for Consult: Abnormal pacemaker related tachycardia Time Notified: 08:14 Call Completed: Yes 10/21/18 09:56 Consult to Cardiac Rehabilitation-Phase1 [CONS] Routine Comment: Reason for Consult: heart failure Call Completed: Yes Consult to Nurse Navigator [CONS] Routine Comment: 10/24/18 13:07 Consult to Cardiothoracic Surgery [CONS] Routine Consulting Provider: Cardiothoracic Surgery Tiffany Reason for Consult: possible CABG Time Notified: 13:08 Call Completed: No Discharging clinician: Sabina Katz Anticipated date of discharge: 10/25/18 - Constitutional Vitals: Temp Pulse Resp BP Pulse Ox 97.7 F 61 16 112/53 93 10/25/18 11:33 10/25/18 11:33 10/25/18 11:33 10/25/18 11:33 10/25/18 11:33 General appearance: Present: cooperative, A&O X 3, pleasant, answers questions appropriately Exam: Vitals: Reviewed. General: Alert and oriented x4. In no acute distress. Skin: Normal color, no rash, no lesions. Cardiovascular: Irregularly, irregular, Normal S1 & S2, no rubs, murmurs or gallops. Lungs: CTA b/l, no wheezes or crackles. Abdomen: Obese, Soft, non-tender, no rigidity. Bowel sounds present. Extremities: No edema. Posterior tibial pulses 2/4 and equal. Neurological: Normal cognition. CN II-XII intact. - Patient Status Disposition: Home, Self-Care Condition: Good Functional capacity at discharge: independent ambulation Overall status at discharge: patient is back to baseline - Discharge Instructions Follow Up With: Ceec Cox POWER PLANT MANAGER [Advanced Practice Nurse] - 10/31/18 11:00 am - Diet and Activity Diet: low fat, low cholesterol <Thallapaneni,Rambabu - Last Filed: 10/25/18 14:35> Date of Encounter: 10/25/18 - Discharge Diagnosis (1) Atrial fibrillation Status: Chronic Qualifiers: Atrial fibrillation type: paroxysmal Qualified Code(s): I48.0 - Paroxysmal atrial fibrillation (2) Diabetes mellitus Status: Chronic Qualifiers: Diabetes mellitus type: type 2 Diabetes mellitus casket trimmer insulin use: with fpc use Diabetes mellitus complication status: with kidney complications Diabetes mellitus complication detail: with chronic kidney disease Chronic kidney disease stage: stage 2 (mild) Qualified Code(s): E11.22 - Type 2 diabetes mellitus with diabetic chronic kidney disease; N18.2 - Chronic kidney disease, stage 2 (mild); Z79.4 - car scrubber (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 insulin (3) Congestive heart failure Status: Chronic Qualifiers: Heart failure type: systolic Heart failure chronicity: chronic Qualified Code(s): I50.22 - Chronic systolic (congestive) heart failure (4) CAD (coronary artery disease), [place] coronary artery Status: Chronic Qualifiers: [place] vs. transplanted heart: [place] heart Associated angina: without angina Qualified Code(s): I25.10 - Atherosclerotic heart disease of [place] coronary artery without angina pectoris (5) Hypotension Status: Resolved Qualifiers: Hypotension type: hypotension due to drug Qualified Code(s): I95.2 - Hypotension due to drugs (6) COPD (chronic obstructive pulmonary disease) Status: Chronic Qualifiers: COPD type: emphysema Emphysema type: panlobular Qualified Code(s): J43.1 - Panlobular emphysema (7) UTI (urinary tract infection) Status: Acute Qualifiers: Urinary tract infection type: site unspecified Hematuria presence: without hematuria Qualified Code(s): N39.0 - Urinary tract infection, site not specified Hospital course: Mr. Vizcarra is a 78 year old male - Time Spent with Patient Total time spent providing and/or coordinating discharge services: Date of admission: 10/22/18 16:23 Primary care physician: Jose Seymour DO Consults: 10/21/18 08:13 Consult to Electrophysiology (EP) [CONS] Routine Consulting Provider: Electrophysiology [place] Reason for Consult: Abnormal pacemaker related tachycardia Time Notified: 08:14 Call Completed: Yes 10/21/18 09:56 Consult to Cardiac Rehabilitation-Phase1 [CONS] Routine Comment: Reason for Consult: heart failure Call Completed: Yes Consult to Nurse Navigator [CONS] Routine Comment: 10/24/18 13:07 Consult to Cardiothoracic Surgery [CONS] Routine Consulting Provider: Cardiothoracic Surgery Mant[place] Reason for Consult: possible CABG Time Notified: 13:08 Call Completed: No - Constitutional Vitals: Temp Pulse Resp BP Pulse Ox 97.7 F 61 16 112/53 93 10/25/18 11:33 10/25/18 11:33 10/25/18 11:33 10/25/18 11:33 10/25/18 11:33 - Attending Attestation I examined this patient and my medical decision-making was reviewed with the Resident Physician Dr. Katz. I agree with the documented findings, disposition and treatment plan as described except to the extent set forth below. Mr. Vizcarra is a 78 year old male patient with a history of atrial fibrillation status post permanent pacemaker, CHF, COPD, hypertension hyperlipidemia, prior GA and chronic kidney disease presented to the ER with complaints of shortness of breath and chest pain. Pt Afib was rate controlled with BB. He was initially placed on Heparin gtt then switched to Eliquis for anti coag. He did go for LHC which showed severe triple vessel CAD, CT surgery consulted and recommends PCI given high risk CABG candidate. At this point card recommend to continue aggressive medical management with, ASA, Plavix , Statin , BB ( Coreg ) and ACEI. His Echo showed reduced LVEF, 30-35% with global severe systolic dysfunction, moderate RV hypokinesis, mild MR, mild TR. He was in acute on chronic systolic CHF exacerbation. With aggressive diagnosis his symptoms improved today. So will d/c him home in stable condition today. He c/o Left foot pain , so ordered X ray which did not show any fracture. Gen: A, A, O x 3 Chest: Diminished BS b/l, no crackles Heart: S1S2+ RRR No murmurs
--- NOTE | 2018-10-25 14:41 | Physician Discharge Referral ---
Home Health/Hosp Referral Info Transfer to: Home Health Provider in Charge Post Discharge: PCP - Diagnosis (1) Atrial fibrillation Status: Chronic (2) Diabetes mellitus Status: Chronic (3) Congestive heart failure Status: Chronic (4) CAD (coronary artery disease), [place] coronary artery Status: Chronic (5) Hypotension Status: Resolved (6) COPD (chronic obstructive pulmonary disease) Status: Chronic (7) UTI (urinary tract infection) Status: Acute - Respiratory Orders Smoking Cessation: Smoking cessation has been advised. For more information, call the [place] Tobacco Quit Line at 0-530-EOXI-NOW. - Services Needed Following services are medically necessary services: Nursing, Physical Therapy, Occupational Therapy - Transfer Medications Prescriptions: Apixaban [Eliquis] 5 mg PO BID 30 Days #30 tablet Carvedilol [Coreg] 3.125 mg PO BIDWM 30 Days #60 tablet Home Medications: Albuterol Sulfate [Albuterol Inhaler] 1 puff IH Q4H PRN 08/21/15 [History] Atorvastatin Calcium [Lipitor] 20 mg PO 1700 08/21/15 [History] Bupropion HCl [Wellbutrin Xl] 300 mg PO DAILY 08/21/15 [History] Fluticasone/Salmeterol [Advair 250-50 Diskus] 1 puff IH BID 08/21/15 [History] Insulin Glargine,Hum.rec.anlog [Lantus Solostar] 60 unit SQ HS 08/21/15 [History] Folic Acid 1 mg PO DAILY 12/18/15 [History] Insulin LISPRO [Humalog] 0 unit SQ TIDWM 06/19/16 [History] Clopidogrel [Plavix] 75 mg PO DAILY #30 tablet 06/20/16 [Rx] Potassium Chloride 10 meq PO DAILY #30 tab.er.prt 11/03/16 [Rx] [place]-3/Dha/Epa/Fish Oil [Fish Oil 1,000 mg Softgel] 1 cap PO TID 12/04/16 [History] Oxygen 2 l NS HS PRN 12/04/16 [History] Magnesium Oxide [Magnesium] 400 mg PO BID 04/16/17 [History] Ferrous Gluconate 324 mg PO BID 08/13/17 [History] Aspirin [Adult Aspirin Regimen] 81 mg PO DAILY 01/06/18 [History] Loratadine [Allergy Relief] 10 mg PO DAILY 04/15/18 [History] Pantoprazole Sodium 40 mg PO DAILY 04/15/18 [History] Tiotropium [Spiriva] 1 puff IH DAILY 04/15/18 [History] Cholecalciferol (Vitamin D3) [Vitamin D3] 2,000 unit PO BID 05/11/18 [History] Docusate [Colace] 100 mg PO DAILY 05/11/18 [History] Sertraline [Zoloft] 200 mg PO DAILY 05/11/18 [History] Ascorbic Acid [Vitamin C] 500 mg PO BID 07/28/18 [History] Ipratropium/Albuterol Neb [Duoneb] 3 ml IH Q6HR PRN 07/28/18 [History] Nitroglycerin [Nitrostat] 0.4 mg SL Q5MIN PRN 07/28/18 [History] Furosemide [Lasix] 40 mg PO DAILY 09/05/18 [History] Hydrocortisone 2.5% CREAM [Cortaid] 1 appl TP AD #1 tube 09/05/18 [Rx] Tamsulosin [Flomax] 0.4 mg PO DAILY 10/21/18 [History] Apixaban [Eliquis] 5 mg PO BID 30 Days #30 tablet 10/25/18 [Rx] Carvedilol [Coreg] 3.125 mg PO BIDWM 30 Days #60 tablet 10/25/18 [Rx] Allergies/Adverse Reactions: Allergy/AdvReac Type Severity Reaction Status Date / Time codeine Allergy Difficulty Verified 09/05/18 13:50 Breathing Homatropine AdvReac Insomnia Verified 09/05/18 13:50 [From Homatropaire] hydrocodone AdvReac Insomnia Verified 09/05/18 13:50 Certification: Further, I certify that my clinical findings support that this patient is homebound (i.e. absences from home require considerable and taxing effort and are for medical reasons or congregation services or infrequently or short duration when for other reasons) because: Homebound Reason: Patient requires assistance of a person or device to safely leave home Attestation: My signature below is to certify that this patient is under my care and that I, or nurse practitioner, or a physician's assistant softball coach working with me, has a osgl-nn-weja encounter with this patient.
== END 2018-10-25 15:08 | disposition home health service (06) | DRG 286 ==
LOC: 3BNU → SUATTDRO 04:19
PROVIDERS: ADMIT Pediatrics; ATTEND Internal Medicine

== ENCOUNTER 2019-05-16 10:08 | Inpatient (IN) ==
--- NOTE | 2019-05-16 10:38 | Emergency Department Note ---
Disposition Clinical Impression: NSTEMI (non-ST elevated myocardial infarction) Disposition: Admitted As Inpatient Condition: Fair Time of Disposition: 11:11 General Adult HPI - General Chief complaint: ED Arrhythmia/Palpitations Stated complaint: L arm pain High HR Time Seen by Provider: 05/16/19 10:28 Source: patient, family Limitations: no limitations Nursing Notes Reviewed: Yes Vital Signs Reviewed: Yes - History of Present Illness HPI Narrative: 78-year-old male extensive history of occlusive coronary artery disease with stents and a balloon angioplasty at that was done by Dr. Hardy in 2016 at [facility]. Patient states that he woke this morning with pain in his left arm and his left shoulder. His prior episodes in which she needed stents in the Customer Support Associate he said he did not really have much symptoms from those episodes. Patient denies nausea dyspnea weakness headache photophobia diaphoresis dysuria diarrhea abdominal pain ankle swelling or any other symptoms just says he feels a little fatigued. Recent ill contacts exotic food recent travel or medication changes. His concentrator operator is Dr. Nieves. Please fax copy of this chart to Dr. Nieves. They contacted his office and stated he should come into the hospital emergency department for evaluation and we should call Dr. Nieves. Disposition pending. Pain Scale: 8 - Related Data Home Medications Medication Instructions Recorded Confirmed Albuterol Sulfate [Proventil 1 puff IH Q4H PRN 08/21/15 05/16/19 Inhaler] Atorvastatin Calcium [Lipitor] 20 mg PO 1700 08/21/15 05/16/19 Bupropion HCl [Wellbutrin Xl] 300 mg PO DAILY 08/21/15 05/16/19 Insulin Glargine,Hum.rec.anlog 60 unit SQ HS 08/21/15 05/16/19 [Lantus Solostar] Folic Acid 1 mg PO DAILY 12/18/15 05/16/19 Insulin LISPRO [Humalog] 0 unit SQ TIDWM 06/19/16 05/16/19 [place]-3/Dha/Epa/Fish Oil [Fish Oil 1,000 mg PO TID 12/04/16 05/16/19 1,000 mg Softgel] Oxygen 2 l NS HS PRN 12/04/16 05/16/19 Magnesium Oxide [Magnesium] 400 mg PO BID 04/16/17 05/16/19 Ferrous Gluconate 324 mg PO BID 08/13/17 05/16/19 Loratadine [Allergy Relief] 10 mg PO DAILY 04/15/18 05/16/19 Pantoprazole Sodium 40 mg PO DAILY 04/15/18 05/16/19 Tiotropium [Spiriva] 1 puff IH DAILY 04/15/18 05/16/19 Cholecalciferol (Vitamin D3) 2,000 unit PO BID 05/11/18 05/16/19 [Vitamin D3] Docusate [Colace] 100 mg PO DAILY 05/11/18 05/16/19 Sertraline [Zoloft] 200 mg PO DAILY 05/11/18 05/16/19 Ascorbic Acid [Vitamin C] 500 mg PO BID 07/28/18 05/16/19 Ipratropium/Albuterol Neb [Duoneb] 3 ml IH Q6HR PRN 07/28/18 05/16/19 Nitroglycerin [Nitrostat] 0.4 mg SL Q5MIN PRN 07/28/18 05/16/19 Furosemide [Lasix] 40 mg PO DAILY 09/05/18 05/16/19 Tamsulosin [Flomax] 0.4 mg PO DAILY 10/21/18 05/16/19 Apixaban [Eliquis] 5 mg PO BID 01/05/19 05/16/19 Diltiazem CD (24hr) [Cardizem CD] 120 mg PO DAILY 01/05/19 03/21/19 Pantoprazole 40 mg PO DAILY 05/16/19 05/16/19 Previous Rx's Medication Instructions Recorded Clopidogrel [Plavix] 75 mg PO DAILY #30 tablet 06/20/16 Potassium Chloride 10 meq PO DAILY #30 tab.er.prt 11/03/16 Hydrocortisone 2.5% CREAM [Cortaid] 1 appl TP AD #1 tube 09/05/18 Cyanocobalamin (Vitamin B-12) 1,000 mcg SL DAILY #30 tablet 01/12/19 [Vitamin B12] Allergies Allergy/AdvReac Type Severity Reaction Status Date / Time codeine Allergy Difficulty Verified 03/21/19 14:29 Breathing Homatropine AdvReac Insomnia Verified 03/21/19 14:29 [From Homatropaire] hydrocodone AdvReac Insomnia Verified 03/21/19 14:29 Constitutional: Reports: other (Fatigue) Cardiovascular: Reports: chest pain Past Medical History - Past Medical History Attestation: Yes The following information was validated with the patient. Source: patient Medical history: Reports: arthritis, CHF, COPD, diabetes, GERD, hyperlipidemia, hypertension Surgical history: Reports: angioplasty/stent, appendectomy, cancer surgery, cataract, cholecystectomy, herniorrhaphy (Left inguinal herniorrhaphy, right i nguinal herniorrhaphy, umbilical herniorrhaphy), other (Cardiac ablation, excision of right ear melanoma), pacemaker Psychiatric history: Reports: anxiety, depression - Social History Smoking Status: Former smoker Smokeless Tobacco Status: No Alcohol use: Reports: none Drug use: Reports: none Physical Exam - General Limitations: no limitations General appearance: alert, in no apparent distress - Head Head exam: atraumatic, normocephalic - Eye Eye exam: Present: normal appearance, PERRL - ENT ENT exam: normal exam, normal oropharynx - Neck Neck exam: Present: normal inspection, full ROM - Chest Chest inspection: Present: normal inspection, symmetric chest wall rise - Respiratory Respiratory exam: Present: normal lung sounds bilaterally - Cardiovascular Cardiovascular exam: Present: normal rhythm, tachycardia - Abdominal Exam Abdominal exam: Present: soft, Non-Tender - Extremities Exam Extremities exam: Present: normal inspection, pedal edema - Expanded Lower Extremity Exam Neurovascular/Tendon exam: Present: normal capillary refill Gait: observed and normal - Back Exam Back exam: Present: normal inspection, full ROM - Neurological Exam Neurological exam: Present: alert, oriented X3, CN II-XII intact - Psychiatric Psychiatric exam: Present: normal affect, normal mood - Skin Skin exam: Present: warm, dry, intact Course - Reevaluation(s) Reevaluation #1: ED workup is completed. Lab called with critical elevated troponin of 0.27. This is higher than it been was normal in October 2018. Patient is relatively asymptomatic he is ready on XARELTO, patient probably has an NSTEMI. We have physician overridden paged his concentrator operator Dr. Nieves. Afterwards will admit to hospitalist. Providing an additional 30 minutes critical care service for this patient. I just consulted at [address] Nieves the concentrator operator who states that since the patient is on Eliquis, there is no rash need at this time emergently start heparin. Admit the patient to the hospitalist with cardiology consultation. Hospitalist has been paged patient so informed. Admission disposition pending Time: 11:45 Vital Signs Temperature 97.7 F 05/16/19 10:10 Pulse Rate 107 05/16/19 10:10 Respiratory Rate 18 05/16/19 10:10 Blood Pressure 133/75 05/16/19 10:10 O2 Sat by Pulse Oximetry 97 05/16/19 10:10 Temperature 97.9 F 05/17/19 07:29 Pulse Rate 100 05/17/19 07:29 Respiratory Rate 18 05/17/19 10:29 Blood Pressure 107/60 05/17/19 07:29 O2 Sat by Pulse Oximetry 88 05/17/19 10:29 Oxygen Delivery Oxygen Delivery Room Air Medical Decision Making - Medical Records Medical records reviewed: Yes I reviewed the patient's medical records. - Lab Data Lab results reviewed: Yes I reviewed the patient's lab results. Result diagrams: 05/17/19 05:22 05/17/19 05:22 Lab Results 05/16/19 05/16/19 05/16/19 Range/Units 10:42 10:42 13:56 WBC 10.0 (4.3-11.1) K/mcL RBC 4.98 (4.19-5.50) M/mcL Hgb 12.1 L (12.9-16.9) g/dL Hct 40.2 (37.5-50.1) % MCV 80.7 L (83.0-100.0) fL MCH 24.3 L (28.0-33.3) pg MCHC 30.1 L (31.6-35.5) g/dL RDW 17.8 H (11.5-14.5) % Plt Count 208 (140-400) K/mcL MPV 9.6 (9.4-12.4) fL Immature Gran % 0.4 (0-4) % Seg Neutrophils % 80.6 % Lymphocytes % 11.7 % Monocytes % 6.0 % Eosinophils % 0.9 % Basophils % 0.4 % Neutrophils # 8.1 (1.6-8.9) K/mcL Lymphocytes # 1.2 (0.6-4.6) K/mcL Monocytes # 0.6 (0.0-1.3) K/mcL Eosinophils # 0.1 (0.0-0.6) K/mcL Basophils # 0.0 (0.0-0.2) K/mcL PT (9.4-12.1) Seconds INR Heparin Anti-Xa, Unfract (0.30-0.70) IU/mL Sodium 139 (136-145) mEq/L Potassium 4.2 (3.5-5.1) mEq/L Chloride 101 (98-107) mEq/L Carbon Dioxide 30 H (23-29) mEq/L BUN 25 H (8-23) mg/dL Creatinine 1.33 H (0.70-1.30) mg/dL Est GFR ( Amer) > 60 (> 60) Est GFR (Non-Af Amer) 52 L (> 60) BUN/Creatinine Ratio 19 (6-26) Glucose 124 H (70-105) mg/dL POC Glucose 128 H (70-99) mg/dL Calculated Osmolality 294 (280-300) Calcium 9.2 (8.6-10.3) mg/dL Troponin I 0.27 H* (< 0.04) ng/mL 05/16/19 05/16/19 Range/Units 13:59 13:59 WBC 9.5 (4.3-11.1) K/mcL RBC 4.89 (4.19-5.50) M/mcL Hgb 12.0 L (12.9-16.9) g/dL Hct 39.4 (37.5-50.1) % MCV 80.6 L (83.0-100.0) fL MCH 24.5 L (28.0-33.3) pg MCHC 30.5 L (31.6-35.5) g/dL RDW 17.8 H (11.5-14.5) % Plt Count 216 (140-400) K/mcL MPV 9.9 (9.4-12.4) fL Immature Gran % (0-4) % Seg Neutrophils % % Lymphocytes % % Monocytes % % Eosinophils % % Basophils % % Neutrophils # (1.6-8.9) K/mcL Lymphocytes # (0.6-4.6) K/mcL Monocytes # (0.0-1.3) K/mcL Eosinophils # (0.0-0.6) K/mcL Basophils # (0.0-0.2) K/mcL PT 18.0 H (9.4-12.1) Seconds INR 1.6 Heparin Anti-Xa, Unfract > 2.00 H* (0.30-0.70) IU/mL Sodium (136-145) mEq/L Potassium (3.5-5.1) mEq/L Chloride (98-107) mEq/L Carbon Dioxide (23-29) mEq/L BUN (8-23) mg/dL Creatinine (0.70-1.30) mg/dL Est GFR ( Amer) (> 60) Est GFR (Non-Af Amer) (> 60) BUN/Creatinine Ratio (6-26) Glucose (70-105) mg/dL POC Glucose (70-99) mg/dL Calculated Osmolality (280-300) Calcium (8.6-10.3) mg/dL Troponin I (< 0.04) ng/mL - Radiology Data Radiology results reviewed: Yes I reviewed the patient's radiology results. - EKG Data EKG #1 EKG attestation: Yes I reviewed and interpreted this EKG. EKG results narrative: Twelve-lead EKG interpreted without the benefit of Cardiologic assistance shows paced rhythm at 99 bpm no acute ischemic changes are noted is tachycardic at 99. No acute changes when compared to prior EKG dated 12/02/2018 which is paced as well.
[2019-05-16 11:00] LABS: Basophils % 0.4 %; Eosinophils # 0.1 K/mcL (0.0-0.6); Eosinophils % 0.9 %; Hematocrit 40.2 % (37.5-50.1); Hemoglobin 12.1 g/dL (12.9-16.9); Immature Granulocytes % 0.4 % (0-4); Lymphocytes # 1.2 K/mcL (0.6-4.6); Lymphocytes % 11.7 %; Mean Corpuscular HGB Conc 30.1 g/dL (31.6-35.5); Mean Corpuscular Hemoglobin 24.3 pg (28.0-33.3); Mean Corpuscular Volume 80.7 fL (83.0-100.0); Mean Platelet Volume 9.6 fL (9.4-12.4); Monocytes # 0.6 K/mcL (0.0-1.3); Neutrophils # 8.1 K/mcL (1.6-8.9); Platelet Count 208 K/mcL (140-400); Red Blood Count 4.98 M/mcL (4.19-5.50); Red Cell Distribution Width 17.8 % (11.5-14.5); Segmented Neutrophils % 80.6 %
[2019-05-16 11:32] LABS: BUN/Creatinine Ratio 19 (6-26); Blood Urea Nitrogen 25 mg/dL (8-23); Calcium 9.2 mg/dL (8.6-10.3); Carbon Dioxide 30 mEq/L (23-29); Chloride 101 mEq/L (98-107); Glucose 124 mg/dL (70-105); Osmolality,Calculated 294 (280-300); Potassium 4.2 mEq/L (3.5-5.1); Sodium 139 mEq/L (136-145); Troponin I 0.27 ng/mL (< 0.04); eGFR For African Americans > 60 (> 60); eGFR For Non-African Americans 52 (> 60)
[2019-05-16] MEDS ORDERED: Nitroglycerin 0.4 MG TAB.SUBL SL PRN (12:15)
[2019-05-16] MEDS ORDERED: Naloxone 0.4 MG/ML INJ IVP PRN (12:26)
[2019-05-16] MEDS ORDERED: *HR* Dextrose 50 % in Water (Syg) 50 ML SYRINGE IVP PRN (12:50)
[2019-05-16] MEDS ORDERED: Dextrose Gel 15 GM/37.5 ML TUBE PO PRN ×2 (12:50)
[2019-05-16] MEDS ORDERED: D5% in Water 1,000 ML IVC PRN (12:50)
--- NOTE | 2019-05-16 13:49 | Internal Med History&Physical ---
Date of Encounter: 05/16/19 Time of Encounter: 12:30 Internal Medicine - H&P: HPI Chief complaint: chest and L UE pain Admitted From: Home History of present illness: Mr. Vizcarra is a 78 year old male with history of CAD with known triple-vessel di sease, atrial fibrillation status post pacemaker, diabetes, hypertension, COPD, CKD, who presented to the ED with chest pain. Started around 2 days ago, intermittent, dull in nature, radiates to left upper extremity, no aggravating or relieving factors. No fever/chills, nausea/vomiting, diaphoresis, cough, sputum production, or sick contacts. No palpitation, orthopnea, PND, or leg swelling. Denies any GI/ symptoms. Of note, he was diagnosed with severe triple-vessel disease back in 10/2018 with a drop in EF and there was initially a consideration for CABG vs. staged PCI. However, given his subsequent improvement in EF in 03/2019, there was no fixed plan for further coronary intervention at his last cardiology visit. In the ED, he was afebrile and hemodynamically stable. Workup was largely unremarkable except for elevated troponin of 0.27. EKG showed paced rhythm without concordant changes. Chest x- ray was unremarkable although it was reported as pulmonary vascular congestion. Patient was admitted for further management of NSTEMI after discussing with cardiology. Past Med Surg Social Fam HX - Past Medical History Attestation: Yes The following information was validated with the patient. Medical history: arthritis, CHF, COPD, diabetes, GERD, hyperlipidemia, hypertension Additional medical history: ANEMIA Psychiatric history: anxiety, depression - Past Surgical History Surgical History: angioplasty/stent, appendectomy, cancer surgery, cataract, cholecystectomy, herniorrhaphy (Left inguinal herniorrhaphy, right inguinal herniorrhaphy, umbilical herniorrhaphy), other (Cardiac ablation, excision of right ear melanoma), pacemaker Additional surgical history: 8 cardiac stents. 3 hernia repairs. cancer right ear - Social History Smoking Status: Former smoker Smokeless Tobacco Status: No Alcohol use: none Drug use: none - Family History Mother Family Member Ethnicity: Non- Living Status: Hx Family Cardiac Disorders: Yes (HD) Brother Family Member Ethnicity: Non- Living Status: Still Living Hx Family Cardiac Disorders: Yes Hx Family Cancer: Yes (Leukemia) Hx Family Endocrine Disorder: Yes (DM) Sister Family Member Ethnicity: Non- Living Status: Hx Family Cardiac Disorders: Yes (HD) Hx Family Cancer: Yes Father Family Member Ethnicity: Non- Living Status: Hx Family Cardiac Disorders: Yes Hx Family Respiratory Disorders: No Hx Family Cancer: No Hx Family GI Disorders: No Hx Family Endocrine Disorder: Yes (DM) Hx Family Neuromuscular Disorders: No Hx Family Neurologic Disorders: Yes (stroke) Hx Family HEENT Disorders: No Hx Family Autoimmune Disorders: No Internal Medicine - H&P: Meds Albuterol Sulfate [Proventil Inhaler] 1 puff IH Q4H PRN 08/21/15 [History] Atorvastatin Calcium [Lipitor] 20 mg PO 1700 08/21/15 [History] Bupropion HCl [Wellbutrin Xl] 300 mg PO DAILY 08/21/15 [History] Insulin Glargine,Hum.rec.anlog [Lantus Solostar] 60 unit SQ HS 08/21/15 [History] Folic Acid 1 mg PO DAILY 12/18/15 [History] Insulin LISPRO [Humalog] 0 unit SQ TIDWM 06/19/16 [History] Clopidogrel [Plavix] 75 mg PO DAILY #30 tablet 06/20/16 [Rx] Potassium Chloride 10 meq PO DAILY #30 tab.er.prt 11/03/16 [Rx] [place]-3/Dha/Epa/Fish Oil [Fish Oil 1,000 mg Softgel] 1,000 mg PO TID 12/04/16 [History] Oxygen 2 l NS HS PRN 12/04/16 [History] Magnesium Oxide [Magnesium] 400 mg PO BID 04/16/17 [History] Ferrous Gluconate 324 mg PO BID 08/13/17 [History] Loratadine [Allergy Relief] 10 mg PO DAILY 04/15/18 [History] Pantoprazole Sodium 40 mg PO DAILY 04/15/18 [History] Tiotropium [Spiriva] 1 puff IH DAILY 04/15/18 [History] Cholecalciferol (Vitamin D3) [Vitamin D3] 2,000 unit PO BID 05/11/18 [History] Docusate [Colace] 100 mg PO DAILY 05/11/18 [History] Sertraline [Zoloft] 200 mg PO DAILY 05/11/18 [History] Ascorbic Acid [Vitamin C] 500 mg PO BID 07/28/18 [History] Ipratropium/Albuterol Neb [Duoneb] 3 ml IH Q6HR PRN 07/28/18 [History] Nitroglycerin [Nitrostat] 0.4 mg SL Q5MIN PRN 07/28/18 [History] Furosemide [Lasix] 40 mg PO DAILY 09/05/18 [History] Hydrocortisone 2.5% CREAM [Cortaid] 1 appl TP AD #1 tube 09/05/18 [Rx] Tamsulosin [Flomax] 0.4 mg PO DAILY 10/21/18 [History] Apixaban [Eliquis] 5 mg PO BID 01/05/19 [History] Diltiazem CD (24hr) [Cardizem CD] 120 mg PO DAILY 01/05/19 [History] Cyanocobalamin (Vitamin B-12) [Vitamin B12] 1,000 mcg SL DAILY #30 tablet 01/12/19 [Rx] Pantoprazole 40 mg PO DAILY 05/16/19 [History] Allergy/AdvReac Type Severity Reaction Status Date / Time codeine Allergy Difficulty Verified 03/21/19 14:29 Breathing Homatropine AdvReac Insomnia Verified 03/21/19 14:29 [From Homatropaire] hydrocodone AdvReac Insomnia Verified 03/21/19 14:29 All Systems PM: A 10-system review of systems was performed and is negative for pertinent findings except as documented above in the HPI. - Constitutional Vitals: Temp Pulse Resp BP Pulse Ox 97.7 F 102 20 103/74 96 05/16/19 10:14 05/16/19 12:30 05/16/19 11:16 05/16/19 12:30 05/16/19 12:30 Exam: General: Alert and oriented, not in acute distress. HEENT:EOMI, pupils equal, round and reactive. Cardiovascular:Normal S1 & S2, No JVD. Pulse irregular. Lungs: clear to auscultation, no wheezes/rales Abdomen:Soft, non-tender, no rigidity. Extremities:No deformity or swelling Neurological:Normal cognition and motor skills. Non-focal Skin:Normal color, no rash, no lesions. Pulses:Carotid and radial pulses normal +2. Rest of the physical exam is non contributory Internal Med - H&P Results - Labs CBC & Chem 7: 05/16/19 10:42 05/16/19 10:42 Labs: Short CBC 05/16/19 Range/Units 10:42 WBC 10.0 (4.3-11.1) K/mcL Hgb 12.1 L (12.9-16.9) g/dL Hct 40.2 (37.5-50.1) % Plt Count 208 (140-400) K/mcL Neutrophils # 8.1 (1.6-8.9) K/mcL BMP 05/16/19 10:42 Sodium 139 Potassium 4.2 Chloride 101 Carbon Dioxide 30 H BUN 25 H Creatinine 1.33 H Glucose 124 H Calcium 9.2 Cardiac Enzymes 05/16/19 Range/Units 10:42 Troponin I 0.27 H* (< 0.04) ng/mL - Impressions ITS Impressions Chest X-Ray 05/16/19 10:15 IMPRESSION: 1. Cardiomegaly with vascular congestion. D/ / Taz Reyes MD / Taz Reyes MD Interpreting Provider: Taz Reyes MD - Assessment and Plan (1) NSTEMI (non-ST elevated myocardial infarction) Current Visit: Yes Status: Acute Assessment and plan: presented with atypical chest pain in a known TVD and elevated troponin 0.27 EKG did not show any concordant changes in paced rhythm [facility] 10/2018 showed severe TVD and the plan then was to consider either CABG vs. staged PCI Echo 03/2019 showed improvement in EF to 50-55% discussed with cardiology, will hold off on PM dose of Eliquis and start hep gtt. Discussed with pharmacy regarding the time to start resume home meds for CAD trend troponin, telemetry limited echocardiogram tentative plan for [facility] tomorrow, NPO after midnight (2) Atrial fibrillation Current Visit: Yes Status: Chronic Assessment and plan: HR around 100-110, will uptitrate coreg to 6.25mg BID change in anticoagulation as above Qualifiers: Atrial fibrillation type: paroxysmal Qualified Code(s): I48.0 - Paroxysmal atrial fibrillation (3) COPD (chronic obstructive pulmonary disease) Current Visit: No Status: Chronic Assessment and plan: not in exacerbation, resume home inhalers PRN duoneb Qualifiers: COPD type: unspecified COPD Qualified Code(s): J44.9 - Chronic obstructive pulmonary disease, unspecified (4) CAD (coronary artery disease), [place] coronary artery Current Visit: No Status: Chronic Assessment and plan: mx per NSTEMI Qualifiers: [place] vs. 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: with termite control representative use Diabetes mellitus complication status: with kidney complications Diabetes mellitus complication detail: with chronic kidney disease Chronic kidney disease stage: stage 2 (mild) Qualified Code(s): E11.22 - Type 2 diabetes mellitus with diabetic chronic kidney disease; N18.2 - Chronic kidney disease, stage 2 (mild); Z79.4 - intermediate (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 insulin (6) CKD (chronic kidney disease) stage 3, GFR 30-59 ml/min Current Visit: Yes Status: Chronic Assessment and plan: Cr at his baseline avoid nephrotoxins (7) DVT prophylaxis Current Visit: No Status: Acute Assessment and plan: hep gtt - Time Spent With Patient Total time spent is greater than 50% in coordination of care (as documented) at patient's floor/unit and/or counseling patient: Greater than 35 minutes
[2019-05-16] MEDS ORDERED: Ipratropium/Albuterol Neb 3 ML IH PRN (14:03)
[2019-05-16 14:15] LABS: Hematocrit 39.4 % (37.5-50.1); Mean Corpuscular HGB Conc 30.5 g/dL (31.6-35.5); Mean Corpuscular Hemoglobin 24.5 pg (28.0-33.3); Mean Corpuscular Volume 80.6 fL (83.0-100.0); Mean Platelet Volume 9.9 fL (9.4-12.4); Platelet Count 216 K/mcL (140-400); Red Blood Count 4.89 M/mcL (4.19-5.50); Red Cell Distribution Width 17.8 % (11.5-14.5); White Blood Count 9.5 K/mcL (4.3-11.1)
[2019-05-16 14:18] LABS: INR 1.6
[2019-05-16 14:30] LABS: Heparin anti-factor XA UFH > 2.00 IU/mL (0.30-0.70)
--- NOTE | 2019-05-16 14:58 | Cardiology Consult Note ---
Date of Encounter: 05/16/19 Time of Encounter: 13:00 Assessment and Plan (1) NSTEMI (non-ST elevated myocardial infarction) Current Visit: Yes Status: Acute typical angina equivalent, trop 0.27x1, current chest/back/left arm pain free. Ho 3-v CAD. [id number] decision on staged PCI over CABGA. [facility] 10/24/2018: LVEF 25%. Left main normal. LAD mid 80% stenosis. Circumflex mid 80% in-stent restenosis. OM1 80% stenosis. RCA proximal 90% stenosis small vessel. - cycle trop till downtrending - limited TTE for EF and RWMA - will d/w interventional am re plan for PCI - BMP am (Cr 1.3) - given [facility] access concern, hold eliquis, start heparin drip - c/w plavix - NPO after midnight (2) CAD (coronary artery disease), [place] coronary artery Current Visit: Yes Status: Chronic see NSTEMI section Qualifiers: Associated angina: with other forms of angina Qualified Code(s): I25.118 - Atherosclerotic heart disease of [place] coronary artery with other forms of angina pectoris (3) Atrial fibrillation Current Visit: Yes Status: Chronic s/p AVN ablation and PPM, PPM check DENTAL OFFICER 96%, AP 21%. Currently V pacing, on eliquis. - eliquis to heparin in prep for possible [facility] - PPM check Qualifiers: Atrial fibrillation type: permanent Qualified Code(s): I48.2 - Chronic atrial fibrillation (4) HFrEF (heart failure with reduced ejection fraction) Current Visit: Yes Status: Acute NYHA II-III, LVEF recovered , etiology ICMP and TCMP, euvolemia now - keep I/O even - PPM check - limited TTE given NSTEMI Qualifiers: Heart failure chronicity: chronic Qualified Code(s): I50.22 - Chronic systolic (congestive) heart failure Discussion w patient/family: The assessment and plan as outlined above was discussed with the patient and/or family members who expressed understanding and agreement. All questions were answered. Thank you for involving us in the care of your patient. Please call with any questions. History of Present Illness Consult date: 05/16/19 Requesting physician: Gary Sewell Consult reason: NSTEMI Chief complaint: chest/left arm pain History of present illness: Mr. 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 C/o vague mid chest/back/left arm pain 2 days after sitting hours playing cards, worsening on exertion and partial relief by rest, intermittent, no recurrence after ED visit. No syncope, dizziness, dyspnea, palpitations or LE edema. ECG V pacing. Trop 0.27x1. VSS, no sig BP elevation or O2 requirement. Cr 1.3 (baseline 1-1.2) Hb 12 baseline TTE pending prior testing Due for PPM check. [id number] EF 50-55%, mild RMWA, RV nl. TTE 10/21/2018: LVEF 30-35%. Most LV clement not well visualized. Severe global LV systolic dysfunction. Indeterminate diastolic function. Moderate RV hypokinesis. Mild MR, TR. Moderate pulmonary hypertension. 3 PTT recommended after rate control. [facility] 10/24/2018: LVEF 25%. Left main normal. LAD mid 80% stenosis. Circumflex mid 80% in-stent restenosis. OM1 80% stenosis. RCA proximal 90% stenosis small vessel. [facility] 06/19/2016: Severe two vessel coronary artery disease. EF 60%. Severe in- stent stenosis 99%, in the proximal Circumflex, successful PTCA. 30% stenosis Proximal LAD, 20% stenosis Mid LAD. Ramus 50% stenosis. 95% stenosis in the proximal RCA, small and non-dominant. TTE 05/10/2017: EF 55-60%. Mild concentric LVH. Atypical septal motion, consistent with paced rhythm. Indeterminate diastolic function. No evidence of pulmonary hypertension. RVSP not well obtained. TTE Limited 05/11/2017: EF 60%. Regadenoson Nuclear Stress test 05/12/2017: Gated EF 47%. Pharmacologic stress ECG non diagnostic for ischemia due to paced rhythm, nonspecific ST-T changes. Small sized, mild intensity, fixed inferior defect. Wall motion appears hypokinetic. Suggestive of prior infarct. Perfusion imaging negative for ischemia. Carotid Duplex 05/10/2017: Left proximal ICA 60-79% stenosis. Left Mid ICA 60-79% stenosis. Right carotid arteries normal throughout. Cholesterol 05/11/2017: Total 95, LDL 40, HDL 22, TG 164. Past Med Surg Social Fam HX - Past Medical History Medical history: arthritis, CHF, COPD, diabetes, GERD, hyperlipidemia, hypertension Additional medical history: ANEMIA Psychiatric history: anxiety, depression - Past Surgical History Surgical History: angioplasty/stent, appendectomy, cancer surgery, cataract, cholecystectomy, herniorrhaphy, other, pacemaker Additional surgical history: 8 cardiac stents. 3 hernia repairs. cancer right ear - Social History Smoking Status: Former smoker Smokeless Tobacco Status: No Alcohol use: none Drug use: none - Family History Mother Family Member Ethnicity: Non- Living Status: Hx Family Cardiac Disorders: Yes (HD) Brother Family Member Ethnicity: Non- Living Status: Still Living Hx Family Cardiac Disorders: Yes Hx Family Cancer: Yes (Leukemia) Hx Family Endocrine Disorder: Yes (DM) Sister Family Member Ethnicity: Non- Living Status: Hx Family Cardiac Disorders: Yes (HD) Hx Family Cancer: Yes Father Family Member Ethnicity: Non- Living Status: Hx Family Cardiac Disorders: Yes Hx Family Respiratory Disorders: No Hx Family Cancer: No Hx Family GI Disorders: No Hx Family Endocrine Disorder: Yes (DM) Hx Family Neuromuscular Disorders: No Hx Family Neurologic Disorders: Yes (stroke) Hx Family HEENT Disorders: No Hx Family Autoimmune Disorders: No - Additional Family History Additional family history: non-contributory Medications and Allergies Albuterol Sulfate [Proventil Inhaler] 1 puff IH Q4H PRN 08/21/15 [History] Atorvastatin Calcium [Lipitor] 20 mg PO 1700 08/21/15 [History] Bupropion HCl [Wellbutrin Xl] 300 mg PO DAILY 08/21/15 [History] Insulin Glargine,Hum.rec.anlog [Lantus Solostar] 60 unit SQ HS 08/21/15 [History] Folic Acid 1 mg PO DAILY 12/18/15 [History] Insulin LISPRO [Humalog] 0 unit SQ TIDWM 06/19/16 [History] Clopidogrel [Plavix] 75 mg PO DAILY #30 tablet 06/20/16 [Rx] Potassium Chloride 10 meq PO DAILY #30 tab.er.prt 11/03/16 [Rx] [place]-3/Dha/Epa/Fish Oil [Fish Oil 1,000 mg Softgel] 1,000 mg PO TID 12/04/16 [History] Oxygen 2 l NS HS PRN 12/04/16 [History] Magnesium Oxide [Magnesium] 400 mg PO BID 04/16/17 [History] Ferrous Gluconate 324 mg PO BID 08/13/17 [History] Loratadine [Allergy Relief] 10 mg PO DAILY 04/15/18 [History] Pantoprazole Sodium 40 mg PO DAILY 04/15/18 [History] Tiotropium [Spiriva] 1 puff IH DAILY 04/15/18 [History] Cholecalciferol (Vitamin D3) [Vitamin D3] 2,000 unit PO BID 05/11/18 [History] Docusate [Colace] 100 mg PO DAILY 05/11/18 [History] Sertraline [Zoloft] 200 mg PO DAILY 05/11/18 [History] Ascorbic Acid [Vitamin C] 500 mg PO BID 07/28/18 [History] Ipratropium/Albuterol Neb [Duoneb] 3 ml IH Q6HR PRN 07/28/18 [History] Nitroglycerin [Nitrostat] 0.4 mg SL Q5MIN PRN 07/28/18 [History] Furosemide [Lasix] 40 mg PO DAILY 09/05/18 [History] Hydrocortisone 2.5% CREAM [Cortaid] 1 appl TP AD #1 tube 09/05/18 [Rx] Tamsulosin [Flomax] 0.4 mg PO DAILY 10/21/18 [History] Apixaban [Eliquis] 5 mg PO BID 01/05/19 [History] Diltiazem CD (24hr) [Cardizem CD] 120 mg PO DAILY 01/05/19 [History] Cyanocobalamin (Vitamin B-12) [Vitamin B12] 1,000 mcg SL DAILY #30 tablet 01/12/19 [Rx] Pantoprazole 40 mg PO DAILY 05/16/19 [History] Allergy/AdvReac Type Severity Reaction Status Date / Time codeine Allergy Difficulty Verified 03/21/19 14:29 Breathing Homatropine AdvReac Insomnia Verified 03/21/19 14:29 [From Homatropaire] hydrocodone AdvReac Insomnia Verified 03/21/19 14:29 All Systems Review: The remainder of the systems were reviewed and are negative - Cardiovascular Cardiovascular: as per HPI - Respiratory Respiratory: no dyspnea - Hematological/Lymphatic Hematologic/Lymphatic: no easy bleeding Physical Examination Vital Signs, Last 4 Hours Temp Pulse Resp BP Pulse Ox 05/16/19 13:57 97.9 F 95 19 118/63 91 05/16/19 12:30 102 103/74 96 05/16/19 11:16 100 20 125/85 97 05/16/19 10:14 97.7 F 107 18 133/75 97 05/16/19 10:10 97.7 F 107 18 133/75 97 Other: General: NAD, AAO, cogent HEENT: anicteric Neck: no JVD, no bruits Chest: CTA B/L, no W/R/C Heart: IR, S1/S2, no S3/S4, no M/G/R Abdominal: BS +, soft, ND, NT Peripheral Pulses: radial pulse 2+ B/L, DP 1+ B/ Skin/Extremities: no cyanosis, no LE edema Neurological: grossly non-focal. Results 05/16/19 13:59 05/16/19 10:42 Lab Results 05/16/19 05/16/19 10:42 10:42 WBC 10.0 Hgb 12.1 L Hct 40.2 Plt Count 208 Sodium 139 Potassium 4.2 Chloride 101 Carbon Dioxide 30 H BUN 25 H Creatinine 1.33 H Glucose 124 H Calcium 9.2 Troponin I 0.27 H* - Imaging and Cardiology Chest Xray: image reviewed Stress Test: report reviewed Echo: report reviewed, image reviewed Cardiac cath: report reviewed Holter: report reviewed - EKG Interpretation EKG results cardiology: personally reviewed Consult Discharge Plan - Plan Referrals: Jose Seymour DO [Primary Care Provider] -
[2019-05-16] MEDS: Insulin LISPRO 300 UNITS/3 ML VIAL SQ SCH ×2 (16:03→23:49)
--- NOTE | 2019-05-16 16:07 | Event Note ---
Date of Encounter: 05/16/19 Time of Encounter: 16:07 - Cardiology Event Note All measurements are normal except RV lead impedence slowly rising but within normal range. No sudden change. Noted to have frequent atrial high rates above 150 bpm. Most recently 05/15/19. Tracking high atrial rates. Device check will be reviewed by Dr. Ladd.
[2019-05-16] MEDS: Heparin 25,000 UNIT/250 ML D5W 25,000 UNIT/250 ML IV.SOLN IVC SCH (16:53)
[2019-05-16] MEDS ORDERED: *HR* Heparin 5,000 UNIT/ML VIAL IVP PRN (17:00)
[2019-05-16] MEDS ORDERED: Heparin 25,000 UNIT/250 ML D5W 25,000 UNIT/250 ML IV.SOLN IVC SCH (17:00)
[2019-05-16] MEDS: Ondansetron 4 MG/2 ML VIAL IVP PRN (20:37)
[2019-05-16] MEDS: Magnesium Oxide 400 MG TABLET PO SCH (22:06)
[2019-05-16] MEDS: Insulin DETEMIR 100 UNIT/ML X5UNITS SQ SCH (22:06)
[2019-05-16] MEDS: *HR* Heparin 5,000 UNIT/ML VIAL IVP PRN (23:49)
[2019-05-17 05:33] LABS: Basophils # 0.1 K/mcL (0.0-0.2); Basophils % 0.4 %; Eosinophils # 0.1 K/mcL (0.0-0.6); Hematocrit 38.6 % (37.5-50.1); Hemoglobin 11.8 g/dL (12.9-16.9); Immature Granulocytes % 0.3 % (0-4); Lymphocytes # 1.4 K/mcL (0.6-4.6); Mean Corpuscular HGB Conc 30.6 g/dL (31.6-35.5); Mean Corpuscular Hemoglobin 24.2 pg (28.0-33.3); Mean Corpuscular Volume 79.1 fL (83.0-100.0); Mean Platelet Volume 9.7 fL (9.4-12.4); Monocytes # 0.7 K/mcL (0.0-1.3); Monocytes % 6.2 %; Neutrophils # 9.2 K/mcL (1.6-8.9); Platelet Count 210 K/mcL (140-400); Red Blood Count 4.88 M/mcL (4.19-5.50); Red Cell Distribution Width 17.9 % (11.5-14.5); Segmented Neutrophils % 80.1 %; White Blood Count 11.5 K/mcL (4.3-11.1)
[2019-05-17 05:51] LABS: BUN/Creatinine Ratio 19 (6-26); Blood Urea Nitrogen 25 mg/dL (8-23); Calcium 8.9 mg/dL (8.6-10.3); Carbon Dioxide 29 mEq/L (23-29); Chloride 101 mEq/L (98-107); Glucose 182 mg/dL (70-105); Osmolality,Calculated 291 (280-300); Potassium 4.1 mEq/L (3.5-5.1); Sodium 136 mEq/L (136-145); eGFR For African Americans > 60 (> 60); eGFR For Non-African Americans 52 (> 60)
[2019-05-17] MEDS: *HR* Heparin 5,000 UNIT/ML VIAL IVP PRN (06:01)
[2019-05-17] MEDS: Insulin LISPRO 300 UNITS/3 ML VIAL SQ SCH ×4 (07:41→21:28)
[2019-05-17] MEDS: Folic Acid 1 MG TABLET PO SCH (07:53)
[2019-05-17] MEDS: Loratadine 10 MG TABLET PO SCH (07:54)
[2019-05-17] MEDS: Furosemide 40 MG TABLET PO SCH (07:54)
[2019-05-17] MEDS: BuPROPion XL (24 HR) 150 MG TABLET PO SCH (07:54)
[2019-05-17] MEDS: Magnesium Oxide 400 MG TABLET PO SCH ×2 (07:54→21:28)
[2019-05-17] MEDS ORDERED: Tiotropium 18 MCG inhalation IH SCH (09:00)
[2019-05-17] MEDS: Tiotropium 18 MCG inhalation IH SCH (10:27)
[2019-05-17] MEDS: Ranolazine 500 MG TAB.ER.12H PO SCH ×2 (12:20→21:26)
[2019-05-17] MEDS: Heparin 25,000 UNIT/250 ML D5W 25,000 UNIT/250 ML IV.SOLN IVC SCH (13:17)
--- NOTE | 2019-05-17 14:09 | Internal Med Progress Note ---
Hospitalist Progress Note - Encounter Date of Encounter: 05/17/19 Time of Encounter: 11:15 - Subjective Interval History: Denies any recurrence of chest pain since yesterday. Troponin peaked at 0.34. Tolerating heparin drip without difficulty, denies melena, hematemesis, or hemoptysis. Heart rate remains >100 for the most part. - Exam Vitals: Temp Pulse Resp BP Pulse Ox 97.8 F 107 18 106/66 92 05/17/19 11:31 05/17/19 11:31 05/17/19 11:31 05/17/19 11:31 05/17/19 11:31 Exam: General: Alert and oriented, not in acute distress. Cardiovascular:Normal S1 & S2, No JVD. Pulse irregular and tachycardic Lungs: clear to auscultation, no wheezes/rales Abdomen:Soft, non-tender, no rigidity. Extremities:No deformity or swelling Neurological:Normal cognition and motor skills. Non-focal - Assessment and Plan (1) NSTEMI (non-ST elevated myocardial infarction) Current Visit: Yes Status: Acute Assessment and Plan: presented with atypical chest pain in a known TVD and elevated troponin 0.27 -> peaked at 0.34 EKG did not show any concordant changes in paced rhythm [facility] 10/2018 showed severe TVD and the plan then was to consider either CABG vs. staged PCI Echo 03/2019 showed improvement in EF to 50-55% started on hep gtt after discussing with cardiology, hold off on Eliquis ?type I event vs. demand ischemia from poorly controlled HR limited echocardiogram pending resume home meds for CAD. Will switch coreg to metoprolol given his borderline BP and uptitrate as needed for HR follow with cardiology (2) Atrial fibrillation Current Visit: Yes Status: Chronic Assessment and Plan: HR around 100-110, coreg switched to metoprolol as above change in anticoagulation as above (3) COPD (chronic obstructive pulmonary disease) Current Visit: No Status: Chronic Assessment and Plan: not in exacerbation, resume home inhalers PRN duoneb (4) CAD (coronary artery disease), [place] coronary artery Current Visit: No Status: Chronic Assessment and Plan: mx per NSTEMI (5) Diabetes mellitus Current Visit: No Status: Chronic Assessment and Plan: basal bolus insulin at a decreased dose (6) CKD (chronic kidney disease) stage 3, GFR 30-59 ml/min Current Visit: Yes Status: Chronic Assessment and Plan: Cr at his baseline avoid nephrotoxins (7) DVT prophylaxis Current Visit: No Status: Acute Assessment and Plan: hep gtt - Time Spent with Patient Total time spent is greater than 50% in coordination of care (as documented) at patient's floor/unit and/or counseling patient: 25 - 35 minutes Plan of Care Discussed with: patient (Discussed with cardiology) Internal Medicine: Result - Labs CBC & Chem 7: 05/17/19 05:22 05/17/19 05:22 Labs: Short CBC 05/16/19 05/17/19 Range/Units 13:59 05:22 WBC 9.5 11.5 H (4.3-11.1) K/mcL Hgb 12.0 L 11.8 L (12.9-16.9) g/dL Hct 39.4 38.6 (37.5-50.1) % Plt Count 216 210 (140-400) K/mcL Neutrophils # 9.2 H (1.6-8.9) K/mcL BMP 05/17/19 05:22 Sodium 136 Potassium 4.1 Chloride 101 Carbon Dioxide 29 BUN 25 H Creatinine 1.32 H Glucose 182 H Calcium 8.9 Cardiac Enzymes 05/16/19 05/16/19 05/17/19 Range/Units 16:40 23:09 05:22 Troponin I 0.34 H* 0.29 H* 0.26 H* (< 0.04) ng/mL - ABG Interpretation ABG results: PT/INR, D-dimer PT 18.0 Seconds (9.4-12.1) H 05/16/19 13:59 Consult Discharge Plan - Plan Referrals: Jose Seymour DO [Primary Care Provider] - (2) Atrial fibrillation Qualifiers: Atrial fibrillation type: permanent Qualified Code(s): I48.2 - Chronic atrial fibrillation (3) COPD (chronic obstructive pulmonary disease) Qualifiers: COPD type: unspecified COPD Qualified Code(s): J44.9 - Chronic obstructive pulmonary disease, unspecified (4) CAD (coronary artery disease), [place] coronary artery Qualifiers: [place] vs. 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
[2019-05-17] MEDS: Ondansetron 4 MG/2 ML VIAL IVP PRN (14:47)
--- NOTE | 2019-05-17 15:17 | Cardiology Progress Note ---
Date of Encounter: 05/17/19 Time of Encounter: 09:30 Assessment and Plan (1) NSTEMI (non-ST elevated myocardial infarction) Current Visit: Yes Status: Acute Per cardiology: -Admitted with ypical angina equivalent, troponins 0.27, 0.34, 0.29, 0.26. current chest/back/left arm pain free. -Ho 3-v CAD. 10/2018 decision on staged PCI over CABG due to high risk for CABG. -[facility] 10/24/2018: LVEF 25%. Left main normal. LAD mid 80% stenosis. Circumflex mid 80% in-stent restenosis. OM1 80% stenosis. RCA proximal 90% stenosis small vessel. -On heparin drip, plavix, statin, BB. -Current TTE pending. -[facility] films were reviewed with , interventional cardiology, recommended for continued medical management at this time. Per , can consider outpa tient [facility] with rotablator with impella support. Will add ranexa for angina. Discussed and reviewed at length with patient and family redarding recommendations and plan of care. Patient and family state understanding. -Discussed and reviewed with , also, ok to stop heparin drip. Will resume eliquis. Not on asa due to need for eliquis and plavix. (2) Atrial fibrillation Current Visit: Yes Status: Chronic Per cardiology: -s/p AVN ablation and PPM. -Device check with multiple atrial high rates. -Average HR previous 12 hours noted to be 111. -On BB and eliquis. -Coreg was switched to metoprolol for Less BP effect. -Will switch lopressor to toprol. -Continue to monitor HRs. 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 -On BB, not on shakira/arb due to hypotension. -Current TTE pending. -Further recs pending TTE. Qualifiers: Heart failure chronicity: chronic Qualified Code(s): I50.22 - Chronic systolic (congestive) heart failure (4) CAD (coronary artery disease) Current Visit: Yes Status: Chronic Per cardiology: -Known CAD. -See NSTEMI as above. Qualifiers: Coronary Disease-Associated Artery/Lesion type: [place] artery [place] vs. transplanted heart: [place] heart Associated angina: with other forms of angina Qualified Code(s): I25.118 - Atherosclerotic heart disease of [place] coronary artery with other forms of angina pectoris Discussion w patient/family: The assessment and plan as outlined above was discussed with the patient and/or family members who expressed understanding and agreement. All questions were answered. Thank you for involving us in the care of your patient. Please call with any questions. Discussed and reviewed with and . Subjective Principal diagnosis: NSTEMI Interval history: Patient denies chest pain. Denies left arm pain. Patient states he just feels weak and tired. Objective Vital Signs, Last 4 Hours Temp Pulse Resp BP Pulse Ox 05/17/19 11:31 97.8 F 107 18 106/66 92 General: Conversant, No Apparent Distress HEENT: Atraumatic, Normocephaly, Mucus Membranes Moist Neck: No JVD, Normal carotid pulses Cardiac: Reg Rate and Rhythm, Normal S1 and S2, No Murmur Lungs: Normal Breath Sounds, No Wheeze, Rales, Rhonchi Neuro: Alert and responsive, No focal deficits noted Abdomen: Soft, Non-Tender Skin: No rashes noted on visualized skin Musculoskeletal: No Chest Wall Tenderness Extremities: No Clubbing, No Cyanosis, No Edema, Normal Pulses Results 05/17/19 05:22 05/17/19 05:22 Lab Results Active Medications Albuterol/Ipratropium (Duoneb) 3 ml IH [id number] PRN PRN Reason: Shortness Of Breath/Wheezing Stop: 11/15/19 14:04 Atorvastatin Calcium (Lipitor) 20 mg PO 1700 [facility] Stop: 11/15/19 17:01 Last Admin: 05/16/19 16:05 Dose: 20 mg Documented by: Bupropion HCl (Wellbutrin Xl) 300 mg PO DAILY [facility] Stop: 11/16/19 09:01 Last Admin: 05/17/19 07:54 Dose: 300 mg Documented by: Clopidogrel Bisulfate (Plavix) 75 mg PO DAILY [facility] Stop: 11/16/19 09:01 Last Admin: 05/17/19 07:53 Dose: 75 mg Documented by: Dextrose/Water (Dextrose 50% (Syg)) 25 ml IVP AD PRN PRN Reason: Hypoglycemia Stop: 11/15/19 12:51 Docusate Sodium (Colace) 100 mg PO DAILY [facility]; Protocol Stop: 11/16/19 09:01 Last Admin: 05/17/19 07:54 Dose: 100 mg Documented by: Ferrous Sulfate (Ferrous Sulfate) 325 mg PO BIDWM [facility] Stop: 11/15/19 17:01 Last Admin: 05/17/19 07:54 Dose: 325 mg Documented by: Folic Acid (Folic Acid) 1 mg PO DAILY [facility] Stop: 11/16/19 09:01 Last Admin: 05/17/19 07:53 Dose: 1 mg Documented by: Furosemide (Lasix) 40 mg PO DAILY [facility] Stop: 11/16/19 09:01 Last Admin: 05/17/19 07:54 Dose: 40 mg Documented by: Glucagon (Glucagen) 1 mg IM ONCE PRN PRN Reason: Hypoglycemia Stop: 11/15/19 12:51 Glucose (Gluctose) 15 gm PO ONCE PRN PRN Reason: Hypoglycemia Stop: 11/15/19 12:51 Glucose (Gluctose) 30 gm PO ONCE PRN PRN Reason: Hypoglycemia Stop: 11/15/19 12:51 Heparin Sodium (Porcine) (Heparin) 4,000 unit IVP Q6HR PRN PRN Reason: SEE COMMENTS Stop: 11/15/19 17:01 Heparin Sodium (Porcine) (Heparin) 2,000 unit IVP Q6H PRN PRN Reason: SEE COMMENTS Stop: 11/15/19 17:01 Last Admin: 05/17/19 06:01 Dose: 2,000 unit Documented by: Dextrose (Dextrose 5%) 1,000 mls @ 100 mls/hr IVC .Q10H PRN PRN Reason: HYPOGLYCEMIA Stop: 11/15/19 12:51 Heparin Sodium/Dextrose (Heparin 25,000 Unit/250 Ml D5w) 25,000 unit in 250 mls @ 10.011 mls/hr IVC .Q24H [facility]; Protocol Stop: 11/15/19 17:01 Last Titration: 05/17/19 14:32 Dose: 13.68 unit/kg/hr, 14.1 mls/hr Documented by: Insulin Detemir (Levemir) 30 unit SQ HS [facility] Stop: 11/15/19 21:01 Last Admin: 05/16/19 22:06 Dose: 30 unit Documented by: Insulin Human Lispro (Humalog) 0 units SQ HS [facility]; Protocol Stop: 11/15/19 21:01 Last Admin: 05/16/19 23:49 Dose: Not Given Documented by: Insulin Human Lispro (Humalog) 0 units SQ TIDAC [facility]; Protocol Stop: 11/15/19 16:31 Last Admin: 05/17/19 12:20 Dose: 6 units Documented by: Loratadine (Claritin) 10 mg PO DAILY [facility]; Protocol Stop: 11/16/19 09:01 Last Admin: 05/17/19 07:54 Dose: 10 mg Documented by: Magnesium Oxide (Mag-Ox) 400 mg PO BID [facility] Stop: 11/15/19 21:01 Last Admin: 05/17/19 07:54 Dose: 400 mg Documented by: Metoprolol Succinate (Toprol Xl) 25 mg PO BID [facility] Stop: 11/16/19 21:01 Naloxone HCl (Narcan) 0.4 mg IVP Q2MPRN PRN PRN Reason: SEE COMMENTS Stop: 11/15/19 12:27 Nitroglycerin (Nitroglycerin) 0.4 mg SL Q5MIN PRN PRN Reason: CHEST PAIN Omeprazole (Prilosec) 20 mg PO DAILY@0730 [facility] Stop: 11/16/19 07:31 Last Admin: 05/17/19 07:54 Dose: 20 mg Documented by: Ondansetron HCl (Zofran) 4 mg IVP Q8HR PRN PRN Reason: Nausea And Vomiting Stop: 11/15/19 12:32 Last Admin: 05/17/19 14:47 Dose: 4 mg Documented by: Potassium Chloride (Potassium Chloride) 10 meq PO DAILY [facility] Stop: 11/16/19 09:01 Last Admin: 05/17/19 07:54 Dose: 10 meq Documented by: Ranolazine (Ranexa) 500 mg PO BID [facility] Stop: 11/16/19 10:46 Last Admin: 05/17/19 12:20 Dose: 500 mg Documented by: Sertraline HCl (Zoloft) 200 mg PO DAILY [facility] Stop: 11/16/19 09:01 Last Admin: 05/17/19 07:54 Dose: 200 mg Documented by: Tamsulosin HCl (Flomax) 0.4 mg PO DAILY [facility]; Protocol Stop: 11/16/19 09:01 Last Admin: 05/17/19 07:54 Dose: 0.4 mg Documented by: Tiotropium [place] (Spiriva) 18 mcg IH DAILYR [facility] Stop: 11/16/19 10:01 Last Admin: 05/17/19 10:27 Dose: 18 mcg Documented by: Laboratory Tests 05/16/19 05/16/19 05/16/19 10:42 16:40 23:09 WBC Hgb Creatinine 1.33 H Troponin I 0.27 H* 0.34 H* 0.29 H* 05/17/19 05/17/19 05/17/19 05:22 05:22 05:22 WBC 11.5 H Hgb 11.8 L Creatinine 1.32 H Troponin I 0.26 H* - Imaging and Cardiology Chest Xray: report reviewed Echo: pending, report reviewed Cardiac cath: report reviewed - EKG Interpretation EKG results cardiology: other (Telemetry reviewed with average HR previous 12 hours noted to be 111, a.fib. Paced.) Consult Discharge Plan - Plan Referrals: Jose Seymour DO [Primary Care Provider] -
[2019-05-17] MEDS: Metoprolol XL (24 HR) Succ 25 MG TAB.ER.24H PO SCH (21:27)
[2019-05-17] MEDS: Apixaban 5 MG TABLET PO SCH (21:27)
[2019-05-17] MEDS: Insulin DETEMIR 100 UNIT/ML X5UNITS SQ SCH (21:46)
[2019-05-18] MEDS: 0.9 % Sodium Chloride 500 ML IVC ONE ×2 (00:55→08:30)
[2019-05-18 02:03] LABS: Basophils % 0.3 %; Eosinophils # 0.2 K/mcL (0.0-0.6); Eosinophils % 1.5 %; Hematocrit 35.8 % (37.5-50.1); Immature Granulocytes % 0.4 % (0-4); Lymphocytes # 1.5 K/mcL (0.6-4.6); Lymphocytes % 14.8 %; Mean Corpuscular HGB Conc 30.7 g/dL (31.6-35.5); Mean Corpuscular Hemoglobin 24.9 pg (28.0-33.3); Mean Corpuscular Volume 81.2 fL (83.0-100.0); Mean Platelet Volume 10.1 fL (9.4-12.4); Monocytes # 0.7 K/mcL (0.0-1.3); Monocytes % 6.8 %; Neutrophils # 7.6 K/mcL (1.6-8.9); Platelet Count 193 K/mcL (140-400); Red Blood Count 4.41 M/mcL (4.19-5.50); Red Cell Distribution Width 17.9 % (11.5-14.5); Segmented Neutrophils % 76.2 %
[2019-05-18 02:22] LABS: Calcium 8.5 mg/dL (8.6-10.3)
[2019-05-18] MEDS ORDERED: *HR* Metoprolol 5 MG/5 ML VIAL IVP ONE (03:42)
[2019-05-18] MEDS: Ondansetron 4 MG/2 ML VIAL IVP PRN (06:37)
[2019-05-18] MEDS: Tiotropium 18 MCG inhalation IH SCH (07:35)
[2019-05-18] MEDS: Loratadine 10 MG TABLET PO SCH (07:48)
[2019-05-18] MEDS: Insulin LISPRO 300 UNITS/3 ML VIAL SQ SCH ×5 (07:48→21:44)
[2019-05-18] MEDS: Apixaban 5 MG TABLET PO SCH ×2 (07:49→21:43)
[2019-05-18] MEDS: Magnesium Oxide 400 MG TABLET PO SCH ×2 (07:49→21:43)
[2019-05-18] MEDS: Folic Acid 1 MG TABLET PO SCH (07:49)
[2019-05-18] MEDS: Metoprolol XL (24 HR) Succ 25 MG TAB.ER.24H PO SCH ×2 (07:50→21:43)
[2019-05-18] MEDS: Ranolazine 500 MG TAB.ER.12H PO SCH ×2 (07:50→21:43)
[2019-05-18] MEDS: BuPROPion XL (24 HR) 150 MG TABLET PO SCH (07:50)
[2019-05-18] MEDS: Furosemide 40 MG TABLET PO SCH (07:58)
[2019-05-18] MEDS ORDERED: *HR* Digoxin 0.25 MG TABLET PO ONE (08:09)
[2019-05-18] MEDS ORDERED: 0.9 % Sodium Chloride 500 ML ONE (08:11)
[2019-05-18] MEDS: 0.9 % Sodium Chloride 500 ML IV ONE ×2 (08:30→11:18)
[2019-05-18 09:15] LABS: Troponin I 0.11 ng/mL (< 0.04)
--- NOTE | 2019-05-18 10:44 | Internal Med Progress Note ---
Hospitalist Progress Note - Encounter Date of Encounter: 05/18/19 Time of Encounter: 08:00 - Subjective Interval History: Overnight event noted. Patient developed worsening tachycardia associated with intermittent chest discomfort. Additional bb in both PO and IV forms were given without improvement. He also received 500ml NS bolus without much effect. Pt also became slightly hypotensive this morning with sustained HR of 120-130s. Chest discomfort is no longer there, denies N/V or diaphoresis as well. - Exam Vitals: Temp Pulse Resp BP Pulse Ox 97.7 F 123 20 91/61 92 05/18/19 08:09 05/18/19 08:09 05/18/19 08:09 05/18/19 08:09 05/18/19 08:09 Exam: General: Alert and oriented, not in acute distress. Cardiovascular:Normal S1 & S2, No JVD. Pulse irregular and tachycardic Lungs: clear to auscultation, no wheezes/rales Abdomen:Soft, non-tender, no rigidity. Extremities:No deformity or swelling Neurological:Normal cognition and motor skills. Non-focal - Assessment and Plan (1) Atrial fibrillation with RVR Current Visit: Yes Status: Acute Assessment and Plan: developed worsening HR yesterday, refractory to increased dose of bb and IV lopressor also borderline hypotensive this morning, given NS bolus without improvement check repeat EKG, another bolus of 500ml NS followed by slow maintenance discussed with cardiology, will give 1 dose of digoxin and await for their evaluation continue eliquis (2) NSTEMI (non-ST elevated myocardial infarction) Current Visit: Yes Status: Acute Assessment and Plan: presented with atypical chest pain in a known TVD and elevated troponin 0.27 -> peaked at 0.34 EKG did not show any concordant changes in paced rhythm ?type I event vs. demand ischemia from poorly controlled HR [facility] 10/2018 showed severe TVD and the plan then was to consider either CABG vs. staged PCI Echo 03/2019 showed improvement in EF to 50-55%. Limited echocardiogram again demonstrated preserved EF hep gtt d/todd, eliquis resumed. Continue plavix, bb for outpatient [facility] with rotablator with impella support. Ranexa added. Appreciate cardiology input (3) COPD (chronic obstructive pulmonary disease) Current Visit: No Status: Chronic Assessment and Plan: not in exacerbation, resume home inhalers PRN duoneb (4) CAD (coronary artery disease), [place] coronary artery Current Visit: No Status: Chronic Assessment and Plan: mx per NSTEMI (5) Diabetes mellitus Current Visit: No Status: Chronic Assessment and Plan: basal bolus insulin at a decreased dose (6) CKD (chronic kidney disease) stage 3, GFR 30-59 ml/min Current Visit: Yes Status: Chronic Assessment and Plan: Cr close to his baseline but given his hypotension and tachyarrhythmia, will gently hydrate today avoid nephrotoxins (7) DVT prophylaxis Current Visit: No Status: Acute Assessment and Plan: Eliquis resumed - Time Spent with Patient Total time spent is greater than 50% in coordination of care (as documented) at patient's floor/unit and/or counseling patient: Greater than 35 minutes Plan of Care Discussed with: family (discussed with the family members and cardiology in great detail) Internal Medicine: Result - Labs CBC & Chem 7: 05/18/19 01:19 05/18/19 01:19 Labs: Short CBC 05/18/19 Range/Units 01:19 WBC 10.0 (4.3-11.1) K/mcL Hgb 11.0 L (12.9-16.9) g/dL Hct 35.8 L (37.5-50.1) % Plt Count 193 (140-400) K/mcL Neutrophils # 7.6 (1.6-8.9) K/mcL BMP 05/18/19 01:19 Sodium 134 L Potassium 4.0 Chloride 99 Carbon Dioxide 27 BUN 27 H Creatinine 1.41 H Glucose 185 H Calcium 8.5 L Cardiac Enzymes 05/18/19 Range/Units 01:19 Troponin I 0.11 H* (< 0.04) ng/mL - ABG Interpretation ABG results: PT/INR, D-dimer PT 18.0 Seconds (9.4-12.1) H 05/16/19 13:59 - Impressions Impressions Echocardiogram Limited Views 05/16/19 12:47 Impressions: LVEF 50-55%. Normal LV chamber size and low normal function. Atypical septal motion consistent with bundle branch block. Mild concentric left ventricular hypertrophy. Left Ventricular Wall Motion: Rest Echo Findings All wall segments showed normal motion. Findings: Study Quality * Technically sub-optimal due to poor echocardiographic windows. ECG Findings * Atrial fibrillation, bundle branch block. Left Ventricle * LVEF 50-55%. * Normal LV chamber size and low normal function. * Atypical septal motion consistent with bundle branch block. * Mild concentric left ventricular hypertrophy. Right Ventricle * Normal right ventricular structure and function. Aorta * Normally sized aortic root. Pericardium * The pericardium appears normal. Consult Discharge Plan - Plan Referrals: Jose Seymour DO [Primary Care Provider] - (3) COPD (chronic obstructive pulmonary disease) Qualifiers: COPD type: unspecified COPD Qualified Code(s): J44.9 - Chronic obstructive pulmonary disease, unspecified (4) CAD (coronary artery disease), [place] coronary artery Qualifiers: [place] vs. transplanted heart: [place] heart Associated angina: without angina Qualified Code(s): I25.10 - Atherosclerotic heart disease of [place] coronary artery without angina pectoris (5) Diabetes mellitus Qualifiers: Diabetes mellitus type: type 2 Diabetes mellitus penitentiary insulin use: with penitentiary use Diabetes mellitus complication status: with kidney complications Diabetes mellitus complication detail: with chronic kidney disease Chronic kidney disease stage: stage 2 (mild) Qualified Code(s): E11.22 - Type 2 diabetes mellitus with diabetic chronic kidney disease; N18.2 - Chronic kidney disease, stage 2 (mild); Z79.4 - shelter (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 insulin
[2019-05-18] MEDS: 0.9 % Sodium Chloride 1,000 ML IVC SCH (12:31)
--- NOTE | 2019-05-18 13:12 | Cardiology Progress Note ---
Date of Encounter: 05/18/19 Time of Encounter: 13:00 Assessment and Plan (1) Atrial fibrillation Current Visit: Yes Status: Chronic Per cardiology: -s/p AVN ablation and PPM. -Device check with multiple atrial high rates. -HR's continue to be elevated, >120 this morning. -magnet rate (with Dr. Ladd) appears to be around 85 BPM. -Continues to have underlying AF with RVR. -Suspect patient has had over diuresis which may be contributing to tachycardia, on IVF at 60 ml/hr. -Continue BB, will load with IV digoxin (stop po). -May need to consider EP consult in AM. -Continue Eliqiuis for AC Qualifiers: Atrial fibrillation type: paroxysmal Qualified Code(s): I48.0 - Paroxysmal atrial fibrillation (2) NSTEMI (non-ST elevated myocardial infarction) Current Visit: Yes Status: Acute Per cardiology: -Admitted with ypical angina equivalent, troponins 0.27, 0.34, 0.29, 0.26. current chest/back/left arm pain free. -Ho 3-v CAD. 10/2018 decision on staged PCI over CABG due to high risk for CABG. -[facility] 10/24/2018: LVEF 25%. Left main normal. LAD mid 80% stenosis. Circumflex mid 80% in-stent restenosis. OM1 80% stenosis. RCA proximal 90% stenosis small vessel. -On heparin drip, plavix, statin, BB. -TTE shows improved LVEF, 50-55% -[facility] films were reviewed with , interventional cardiology, recommended for continued medical management at this time. Per , can consider outpatient [facility] with rotablator with impella support. Will add ranexa for angina. Discussed and reviewed at length with patient and family redarding recommendations and plan of care. Patient and family state understanding. -Discussed and reviewed with , also, ok to stop heparin drip. Will resume eliquis. Not on asa due to need for eliquis and plavix. 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 -On BB, not on shakira/arb due to hypotension. -EF improved, 50-55% Qualifiers: Heart failure chronicity: chronic Qualified Code(s): I50.22 - Chronic systolic (congestive) heart failure Discussion w patient/family: The assessment and plan as outlined above was discussed with the patient and/or family members who expressed understanding and agreement. All questions were answered. Thank you for involving us in the care of your patient. Please call with any questions. The patient will be discussed and reviewed with Dr. Ladd; changes to be made accordingly. Subjective Principal diagnosis: NSTEMI Interval history: Seen and examined with Dr. Ladd Continues to be tachycardiac. No new CV complaints. Objective Vital Signs, Last 4 Hours Temp Pulse Resp BP Pulse Ox 05/18/19 11:08 98.0 F 123 18 98/62 91 General: Conversant, No Apparent Distress HEENT: Atraumatic, Normocephaly, Mucus Membranes Moist Cardiac: Other (irregularly irregular) Lungs: Normal Breath Sounds Neuro: Alert and responsive Abdomen: Soft Skin: No rashes noted on visualized skin Musculoskeletal: No Chest Wall Tenderness Extremities: No Edema, Normal Pulses Results 05/18/19 01:19 05/18/19 01:19 Lab Results 05/17/19 05/17/19 05/18/19 12:41 19:06 01:19 WBC 10.0 Hgb 11.0 L Hct 35.8 L Plt Count 193 APTT 62.6 H 61.8 H Sodium Potassium Chloride Carbon Dioxide BUN Creatinine Glucose Calcium Magnesium Troponin I 05/18/19 01:19 WBC Hgb Hct Plt Count APTT Sodium 134 L Potassium 4.0 Chloride 99 Carbon Dioxide 27 BUN 27 H Creatinine 1.41 H Glucose 185 H Calcium 8.5 L Magnesium 2.0 Troponin I 0.11 H* Active Medications Albuterol/Ipratropium (Duoneb) 3 ml IH [id number] PRN PRN Reason: Shortness Of Breath/Wheezing Stop: 11/15/19 14:04 Apixaban (Eliquis) 5 mg PO BID [facility] Stop: 11/16/19 21:01 Last Admin: 05/18/19 07:49 Dose: 5 mg Documented by: Atorvastatin Calcium (Lipitor) 20 mg PO 1700 [facility] Stop: 11/15/19 17:01 Last Admin: 05/17/19 17:28 Dose: 20 mg Documented by: Budesonide/Formoterol Fumarate (Symbicort) 2 puff IH BIDR [facility] Stop: 11/17/19 22:01 Bupropion HCl (Wellbutrin Xl) 300 mg PO DAILY [facility] Stop: 11/16/19 09:01 Last Admin: 05/18/19 07:50 Dose: 300 mg Documented by: Clopidogrel Bisulfate (Plavix) 75 mg PO DAILY [facility] Stop: 11/16/19 09:01 Last Admin: 05/18/19 07:49 Dose: 75 mg Documented by: Dextrose/Water (Dextrose 50% (Syg)) 25 ml IVP AD PRN PRN Reason: Hypoglycemia Stop: 11/15/19 12:51 Digoxin (Lanoxin) 0.25 mg IVP Q6HR [facility] Stop: 05/19/19 00:01 Docusate Sodium (Colace) 100 mg PO DAILY [facility]; Protocol Stop: 11/16/19 09:01 Last Admin: 05/18/19 07:49 Dose: 100 mg Documented by: Ferrous Sulfate (Ferrous Sulfate) 325 mg PO BIDWM [facility] Stop: 11/15/19 17:01 Last Admin: 05/18/19 07:48 Dose: 325 mg Documented by: Folic Acid (Folic Acid) 1 mg PO DAILY [facility] Stop: 11/16/19 09:01 Last Admin: 05/18/19 07:49 Dose: 1 mg Documented by: Glucagon (Glucagen) 1 mg IM ONCE PRN PRN Reason: Hypoglycemia Stop: 11/15/19 12:51 Glucose (Gluctose) 15 gm PO ONCE PRN PRN Reason: Hypoglycemia Stop: 11/15/19 12:51 Glucose (Gluctose) 30 gm PO ONCE PRN PRN Reason: Hypoglycemia Stop: 11/15/19 12:51 Dextrose (Dextrose 5%) 1,000 mls @ 100 mls/hr IVC .Q10H PRN PRN Reason: HYPOGLYCEMIA Stop: 11/15/19 12:51 Sodium Chloride (0.9 % Sodium Chloride) 1,000 mls @ 60 mls/hr IVC .[id number] [facility] Stop: 05/19/19 20:04 Last Admin: 05/18/19 12:31 Dose: 60 mls/hr Documented by: Insulin Detemir (Levemir) 30 unit SQ HS [facility] Stop: 11/15/19 21:01 Last Admin: 05/17/19 21:46 Dose: 30 unit Documented by: Insulin Human Lispro (Humalog) 0 units SQ HS [facility]; Protocol Stop: 11/15/19 21:01 Last Admin: 05/17/19 21:28 Dose: Not Given Documented by: Insulin Human Lispro (Humalog) 0 units SQ TIDAC [facility]; Protocol Stop: 11/15/19 16:31 Last Admin: 05/18/19 12:33 Dose: Not Given Documented by: Loratadine (Claritin) 10 mg PO DAILY [facility]; Protocol Stop: 11/16/19 09:01 Last Admin: 05/18/19 07:48 Dose: 10 mg Documented by: Magnesium Oxide (Mag-Ox) 400 mg PO BID [facility] Stop: 11/15/19 21:01 Last Admin: 05/18/19 07:49 Dose: 400 mg Documented by: Metoprolol Succinate (Toprol Xl) 25 mg PO BID [facility] Stop: 11/16/19 21:01 Last Admin: 05/18/19 07:50 Dose: Not Given Documented by: Naloxone HCl (Narcan) 0.4 mg IVP Q2MPRN PRN PRN Reason: SEE COMMENTS Stop: 11/15/19 12:27 Nitroglycerin (Nitroglycerin) 0.4 mg SL Q5MIN PRN PRN Reason: CHEST PAIN Omeprazole (Prilosec) 20 mg PO DAILY@0730 [facility] Stop: 11/16/19 07:31 Last Admin: 05/18/19 07:48 Dose: 20 mg Documented by: Ondansetron HCl (Zofran) 4 mg IVP Q8HR PRN PRN Reason: Nausea And Vomiting Stop: 11/15/19 12:32 Last Admin: 05/18/19 06:37 Dose: 4 mg Documented by: Potassium Chloride (Potassium Chloride) 10 meq PO DAILY [facility] Stop: 11/16/19 09:01 Last Admin: 05/18/19 07:49 Dose: 10 meq Documented by: Ranolazine (Ranexa) 500 mg PO BID [facility] Stop: 11/16/19 10:46 Last Admin: 05/18/19 07:50 Dose: 500 mg Documented by: Sertraline HCl (Zoloft) 200 mg PO DAILY [facility] Stop: 11/16/19 09:01 Last Admin: 05/18/19 07:50 Dose: 200 mg Documented by: Tamsulosin HCl (Flomax) 0.4 mg PO DAILY [facility]; Protocol Stop: 11/16/19 09:01 Last Admin: 05/18/19 08:13 Dose: 0.4 mg Documented by: Tiotropium [place] (Spiriva) 18 mcg IH DAILYR [facility] Stop: 11/16/19 10:01 Last Admin: 05/18/19 07:35 Dose: 18 mcg Documented by: - Imaging and Cardiology Echo: report reviewed Cardiac cath: report reviewed - EKG Interpretation EKG results cardiology: personally reviewed Consult Discharge Plan - Plan Referrals: Jose Seymour DO [Primary Care Provider] -
[2019-05-18] MEDS ORDERED: *HR* Digoxin 0.25 MG TABLET PO SCH (15:00)
--- NOTE | 2019-05-18 15:25 | Electrocardiograph Report ---
[address] [address] Test Date: 2019-05-18 Pat Name: Darren Vizcarra Department: 112 Room: [facility] Gender: M Automatic [employer] Fe[employer]: : [id number] Requested By: Андрей Mansfield Order Number: [id number] Reading MD: Kaykay Bhatti Measurements Intervals [place] Rate: 129 P: 100 ME: 205 QRS: -70 QRSD: 213 T: 114 QT: 388 QTc: 464 Interpretive Statements ELECTRONIC VENTRICULAR PACEMAKER ABNORMAL RHYTHM ECG Electronically Signed On 05-18-2019 15:24:16 EDT by Kaykay Bhatti
[2019-05-18] MEDS: *HR* Digoxin 0.5 MG/2 ML AMPUL IVP SCH ×4 (15:50→21:43)
[2019-05-18] MEDS: Budesonide/Formoterol 80/4.5 MDI IH SCH (19:49)
[2019-05-18] MEDS: Insulin DETEMIR 100 UNIT/ML X5UNITS SQ SCH (21:43)
[2019-05-19] MEDS: *HR* Digoxin 0.5 MG/2 ML AMPUL IVP SCH (02:47)
[2019-05-19 04:58] LABS: Hematocrit 37.4 % (37.5-50.1); Mean Corpuscular HGB Conc 29.4 g/dL (31.6-35.5); Mean Corpuscular Hemoglobin 23.9 pg (28.0-33.3); Mean Corpuscular Volume 81.3 fL (83.0-100.0); Mean Platelet Volume 10.3 fL (9.4-12.4); Platelet Count 199 K/mcL (140-400); Red Cell Distribution Width 17.7 % (11.5-14.5); White Blood Count 10.4 K/mcL (4.3-11.1)
[2019-05-19 05:16] LABS: Calcium 8.6 mg/dL (8.6-10.3); Magnesium 2.1 mg/dL (1.6-2.6); Potassium 4.6 mEq/L (3.5-5.1)
[2019-05-19] MEDS: 0.9 % Sodium Chloride 1,000 ML IVC SCH (06:52)
[2019-05-19] MEDS: Budesonide/Formoterol 80/4.5 MDI IH SCH ×2 (07:18→19:39)
[2019-05-19] MEDS: Tiotropium 18 MCG inhalation IH SCH (07:18)
[2019-05-19] MEDS: Insulin LISPRO 300 UNITS/3 ML VIAL SQ SCH ×4 (08:23→20:15)
[2019-05-19] MEDS: Metoprolol XL (24 HR) Succ 25 MG TAB.ER.24H PO SCH ×2 (08:24→20:20)
[2019-05-19] MEDS: Ranolazine 500 MG TAB.ER.12H PO SCH ×2 (08:24→20:20)
[2019-05-19] MEDS: Loratadine 10 MG TABLET PO SCH (08:24)
[2019-05-19] MEDS: BuPROPion XL (24 HR) 150 MG TABLET PO SCH (08:24)
[2019-05-19] MEDS: Apixaban 5 MG TABLET PO SCH ×2 (08:24→20:20)
[2019-05-19] MEDS: Folic Acid 1 MG TABLET PO SCH (08:24)
[2019-05-19] MEDS: Magnesium Oxide 400 MG TABLET PO SCH ×2 (08:24→20:20)
--- NOTE | 2019-05-19 10:04 | Electrophysiology Consult Note ---
<Osmar Blanco - Last Filed: 05/19/19 13:23> Date of Encounter: 05/19/19 Time of Encounter: 10:05 Assessment and Plan (1) Tachycardia Status: Acute Per EP: ECGs and pacer interrogation results reviewed and discussed with Dr. Shayne Hardy. Pacer science technicians to make adjustments to assist with tachycardia. (2) NSTEMI (non-ST elevated myocardial infarction) Status: Acute Per EP:: Plan as outlined: Peak trop 0.34. Ho 3-v CAD. 10/2018 decision on staged PCI over CABG due to high risk for CABG. TTE shows improved LVEF, 50-55% [facility] films were reviewed with , interventional cardiology, recommended for continued medical management at this time. Per , can consider outpatient [facility] with rotablator with impella support. On statin, BB, Ranexa, plavix. Not on asa due to need for eliquis and plavix. (3) Atrial fibrillation Status: Chronic Per EP: Hx of AVN ablation and PPM. Device check with multiple atrial high rates. Recieved IV dig load yesterday. On BB. Discussed with Dr. Shayne Hardy, pacer tech to adjust pacer settings. No need for PO digoxin at this time. Continue Eliqiuis for AC Qualifiers: Atrial fibrillation type: paroxysmal Qualified Code(s): I48.0 - Paroxysmal atrial fibrillation Discussion w patient/family: The assessment and plan as outlined above was discussed with the patient and/or family members who expressed understanding and agreement. All questions were answered. Thank you for involving us in the care of your patient. Please call with any questions. History of Present Illness Consult date: 05/19/19 Requesting physician: Katelynn Quintanilla Consult reason: Tachycardia, Evaluate for pacer adjustments Chief complaint: Fast HR History of present illness: Mr. 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 EP consult for evalaution of tahcycardia. Previous medical records reviewed: "C/o vague mid chest/back/left arm pain 2 days after sitting hours playing cards, worsening on exertion and partial relief by rest, intermittent, no recurrence after ED visit. No syncope, dizziness, dyspnea, palpitations or LE edema". Patient currently denies any chest pain. He reports short of breath somewhat improved during hospital stay. Denies any dizziness, syncope, falls. Denies any palpitations. Denies any active bleeding or blood loss. Seen today with family at bedside. Past Med Surg Social Fam HX - Past Medical History Attestation: Yes The following information was validated with the patient. Source: patient, old records reviewed, obtained from family Medical history: arthritis, CHF, COPD, diabetes, GERD, hyperlipidemia, hypertension Additional medical history: ANEMIA Psychiatric history: anxiety, depression - Past Surgical History Surgical History: angioplasty/stent, appendectomy, cancer surgery, cataract, cholecystectomy, herniorrhaphy, other, pacemaker Additional surgical history: 8 cardiac stents. 3 hernia repairs. cancer right ear - Social History Smoking Status: Former smoker Smokeless Tobacco Status: No Alcohol use: none Drug use: none - Family History Mother Family Member Ethnicity: Non- Living Status: Hx Family Cardiac Disorders: Yes (HD) Brother Family Member Ethnicity: Non- Living Status: Still Living Hx Family Cardiac Disorders: Yes Hx Family Cancer: Yes (Leukemia) Hx Family Endocrine Disorder: Yes (DM) Sister Family Member Ethnicity: Non- Living Status: Hx Family Cardiac Disorders: Yes (HD) Hx Family Cancer: Yes Father Family Member Ethnicity: Non- Living Status: Hx Family Cardiac Disorders: Yes Hx Family Respiratory Disorders: No Hx Family Cancer: No Hx Family GI Disorders: No Hx Family Endocrine Disorder: Yes (DM) Hx Family Neuromuscular Disorders: No Hx Family Neurologic Disorders: Yes (stroke) Hx Family HEENT Disorders: No Hx Family Autoimmune Disorders: No Medications and Allergies Albuterol Sulfate [Proventil Inhaler] 1 puff IH Q4H PRN 08/21/15 [History] Atorvastatin Calcium [Lipitor] 20 mg PO 1700 08/21/15 [History] Bupropion HCl [Wellbutrin Xl] 300 mg PO DAILY 08/21/15 [History] Insulin Glargine,Hum.rec.anlog [Lantus Solostar] 65 unit SQ HS 08/21/15 [History] Folic Acid 1 mg PO HS 12/18/15 [History] Clopidogrel [Plavix] 75 mg PO DAILY #30 tablet 06/20/16 [Rx] [place]-3/Dha/Epa/Fish Oil [Fish Oil 1,000 mg Softgel] 1,000 mg PO TID 12/04/16 [History] Magnesium Oxide [Magnesium] 400 mg PO BID 04/16/17 [History] Ferrous Gluconate 324 mg PO DAILY 08/13/17 [History] Loratadine [Allergy Relief] 10 mg PO DAILY 04/15/18 [History] Pantoprazole Sodium 40 mg PO DAILY 04/15/18 [History] Tiotropium [Spiriva] 1 puff IH DAILY 04/15/18 [History] Cholecalciferol (Vitamin D3) [Vitamin D3] 2,000 unit PO DAILY 05/11/18 [History] Docusate [Colace] 100 mg PO DAILY 05/11/18 [History] Sertraline [Zoloft] 200 mg PO DAILY 05/11/18 [History] Ipratropium/Albuterol Neb [Duoneb] 3 ml IH Q6HR PRN 07/28/18 [History] Nitroglycerin [Nitrostat] 0.4 mg SL Q5MIN PRN 07/28/18 [History] Hydrocortisone 2.5% CREAM [Cortaid] 1 appl TP AD #1 tube 09/05/18 [Rx] Tamsulosin [Flomax] 0.4 mg PO DAILY 10/21/18 [History] Cyanocobalamin (Vitamin B-12) [Vitamin B12] 1,000 mcg SL DAILY #30 tablet 01/12/19 [Rx] Fluticasone/Salmeterol [Advair 250-50 Diskus] 1 puff IH BID 05/17/19 [History] Insulin ASPART [Novolog Flexpen] 12 - 15 unit SQ TIDAC 05/17/19 [History] Apixaban [Eliquis] 5 mg PO BID tablet 05/21/19 [Rx] Metoprolol XL (24 HR) Succ [Toprol Xl] 25 mg PO BID #60 tab.er.24h 05/21/19 [Rx] Ranolazine [Ranexa] 500 mg PO BID 05/22/19 [History] 3 Allergy/AdvReac Type Severity Reaction Status Date / Time codeine Allergy Difficulty Verified 03/21/19 14:29 Breathing Homatropine AdvReac Insomnia Verified 03/21/19 14:29 [From Homatropaire] hydrocodone AdvReac Insomnia Verified 03/21/19 14:29 All Systems Review: The remainder of the systems were reviewed and are negative - Cardiovascular Cardiovascular: as per HPI, chest pain at rest, dyspnea on exertion Physical Examination Vital Signs, Last 4 Hours Temp Pulse Resp BP Pulse Ox 05/19/19 07:26 98.0 F 118 18 126/83 92 05/19/19 07:18 18 94 General: Conversant, No Apparent Distress HEENT: Atraumatic, Normocephaly, Mucus Membranes Moist Neck: No JVD, Normal carotid pulses Cardiac: Reg Rate and Rhythm, Normal S1 and S2, No Murmur Lungs: Normal Breath Sounds, No Wheeze, Rales, Rhonchi Neuro: Alert and responsive, No focal deficits noted Abdomen: Soft, Non-Tender Skin: No rashes noted on visualized skin Musculoskeletal: No Chest Wall Tenderness Extremities: No Clubbing, No Cyanosis, No Edema, Normal Pulses Results 05/19/19 03:58 05/19/19 03:58 Lab Results Laboratory Tests 05/16/19 05/16/19 05/16/19 10:42 13:59 16:40 Hgb Hct INR 1.6 Creatinine Est GFR (Non-Af Amer) Magnesium Troponin I 0.27 H* 0.34 H* 05/16/19 05/17/19 05/18/19 23:09 05:22 01:19 Hgb Hct INR Creatinine Est GFR (Non-Af Amer) Magnesium Troponin I 0.29 H* 0.26 H* 0.11 H* 05/19/19 05/19/19 03:58 03:58 Hgb 11.0 L Hct 37.4 L INR Creatinine 1.41 H Est GFR (Non-Af Amer) 48 L Magnesium 2.1 Troponin I ITS Impressions Chest X-Ray 05/16/19 10:15 IMPRESSION: 1. Cardiomegaly with vascular congestion. D/ / Taz Reyes MD / Taz Reyes MD Interpreting Provider: Taz Reyes MD Echocardiogram Limited Views 05/16/19 12:47 Impressions: LVEF 50-55%. Normal LV chamber size and low normal function. Atypical septal motion consistent with bundle branch block. Mild concentric left ventricular hypertrophy. Left Ventricular Wall Motion: Rest Echo Findings All wall segments showed normal motion. Findings: Study Quality * Technically sub-optimal due to poor echocardiographic windows. ECG Findings * Atrial fibrillation, bundle branch block. Left Ventricle * LVEF 50-55%. * Normal LV chamber size and low normal function. * Atypical septal motion consistent with bundle branch block. * Mild concentric left ventricular hypertrophy. Right Ventricle * Normal right ventricular structure and function. Aorta * Normally sized aortic root. Pericardium * The pericardium appears normal. Active Medications Albuterol/Ipratropium (Duoneb) 3 ml IH [id number] PRN PRN Reason: Shortness Of Breath/Wheezing Stop: 11/15/19 14:04 Apixaban (Eliquis) 5 mg PO BID [facility] Stop: 11/16/19 21:01 Last Admin: 05/19/19 08:24 Dose: 5 mg Documented by: Atorvastatin Calcium (Lipitor) 20 mg PO 1700 [facility] Stop: 11/15/19 17:01 Last Admin: 05/18/19 15:51 Dose: 20 mg Documented by: Budesonide/Formoterol Fumarate (Symbicort) 2 puff IH BIDR [facility] Stop: 11/17/19 22:01 Last Admin: 05/19/19 07:18 Dose: 2 puff Documented by: Bupropion HCl (Wellbutrin Xl) 300 mg PO DAILY [facility] Stop: 11/16/19 09:01 Last Admin: 05/19/19 08:24 Dose: 300 mg Documented by: Clopidogrel Bisulfate (Plavix) 75 mg PO DAILY [facility] Stop: 11/16/19 09:01 Last Admin: 05/19/19 08:24 Dose: 75 mg Documented by: Dextrose/Water (Dextrose 50% (Syg)) 25 ml IVP AD PRN PRN Reason: Hypoglycemia Stop: 11/15/19 12:51 Docusate Sodium (Colace) 100 mg PO DAILY [facility]; Protocol Stop: 11/16/19 09:01 Last Admin: 05/19/19 08:24 Dose: 100 mg Documented by: Ferrous Sulfate (Ferrous Sulfate) 325 mg PO BIDWM [facility] Stop: 11/15/19 17:01 Last Admin: 05/19/19 08:24 Dose: 325 mg Documented by: Folic Acid (Folic Acid) 1 mg PO DAILY [facility] Stop: 11/16/19 09:01 Last Admin: 05/19/19 08:24 Dose: 1 mg Documented by: Glucagon (Glucagen) 1 mg IM ONCE PRN PRN Reason: Hypoglycemia Stop: 11/15/19 12:51 Glucose (Gluctose) 15 gm PO ONCE PRN PRN Reason: Hypoglycemia Stop: 11/15/19 12:51 Glucose (Gluctose) 30 gm PO ONCE PRN PRN Reason: Hypoglycemia Stop: 11/15/19 12:51 Dextrose (Dextrose 5%) 1,000 mls @ 100 mls/hr IVC .Q10H PRN PRN Reason: HYPOGLYCEMIA Stop: 11/15/19 12:51 Sodium Chloride (0.9 % Sodium Chloride) 1,000 mls @ 60 mls/hr IVC .[id number] [facility] Stop: 05/19/19 20:04 Last Admin: 05/19/19 06:52 Dose: 60 mls/hr Documented by: Insulin Detemir (Levemir) 30 unit SQ [facility] Stop: 11/15/19 21:01 Last Admin: 05/18/19 21:43 Dose: 30 unit Documented by: Insulin Human Lispro (Humalog) 0 units SQ HS [facility]; Protocol Stop: 11/15/19 21:01 Last Admin: 05/18/19 21:44 Dose: 4 units Documented by: Insulin Human Lispro (Humalog) 0 units SQ TIDAC [facility]; Protocol Stop: 11/15/19 16:31 Last Admin: 05/19/19 11:48 Dose: 12 units Documented by: Loratadine (Claritin) 10 mg PO DAILY [facility]; Protocol Stop: 11/16/19 09:01 Last Admin: 05/19/19 08:24 Dose: 10 mg Documented by: Magnesium Oxide (Mag-Ox) 400 mg PO BID [facility] Stop: 11/15/19 21:01 Last Admin: 05/19/19 08:24 Dose: 400 mg Documented by: Metoprolol Succinate (Toprol Xl) 25 mg PO BID [facility] Stop: 11/16/19 21:01 Last Admin: 05/19/19 08:24 Dose: 25 mg Documented by: Naloxone HCl (Narcan) 0.4 mg IVP Q2MPRN PRN PRN Reason: SEE COMMENTS Stop: 11/15/19 12:27 Nitroglycerin (Nitroglycerin) 0.4 mg SL Q5MIN PRN PRN Reason: CHEST PAIN Omeprazole (Prilosec) 20 mg PO DAILY@0730 [facility] Stop: 11/16/19 07:31 Last Admin: 05/19/19 08:24 Dose: 20 mg Documented by: Ondansetron HCl (Zofran) 4 mg IVP Q8HR PRN PRN Reason: Nausea And Vomiting Stop: 11/15/19 12:32 Last Admin: 05/18/19 06:37 Dose: 4 mg Documented by: Potassium Chloride (Potassium Chloride) 10 meq PO DAILY [facility] Stop: 11/16/19 09:01 Last Admin: 05/19/19 08:24 Dose: 10 meq Documented by: Ranolazine (Ranexa) 500 mg PO BID [facility] Stop: 11/16/19 10:46 Last Admin: 05/19/19 08:24 Dose: 500 mg Documented by: Sertraline HCl (Zoloft) 200 mg PO DAILY [facility] Stop: 11/16/19 09:01 Last Admin: 05/19/19 08:24 Dose: 200 mg Documented by: Tamsulosin HCl (Flomax) 0.4 mg PO DAILY [facility]; Protocol Stop: 11/16/19 09:01 Last Admin: 05/19/19 08:24 Dose: 0.4 mg Documented by: Tiotropium [place] (Spiriva) 18 mcg IH DAILYR [facility] Stop: 11/16/19 10:01 Last Admin: 05/19/19 07:18 Dose: 18 mcg Documented by: - Imaging and Cardiology Echo: report reviewed Consult Discharge Plan - Plan Instructions: Metoprolol (By mouth), Ranolazine (By mouth), Atrial Fibrillation (DC) Referrals: Vance Meier DO [Partnered Physician] - (web-requested, the office will call the patient to schedule a follow up appointment. ) Jose Seymour DO [Primary Care Provider] - (web-requested, the office will call the patient to schedule a follow up appointmet. ) Prescriptions: Metoprolol XL (24 HR) Succ [Toprol Xl] 25 mg PO BID #60 tab.er.24h <Shayne Hardy - Last Filed: 05/23/19 13:07> Date of Encounter: 05/23/19 - Attending Attestation I have personally performed a face to face evaluation on this patient. I have reviewed and agree with the care plan. History and Exam by me shows: Chronic AF, AT. Intermmtent pacing at upper rate limit. Will switch to a nontracking mode (DDI). Assessment and Plan Discussion w patient/family: The assessment and plan as outlined above was discussed with the patient and/or family members who expressed understanding and agreement. All questions were answered. Thank you for involving us in the care of your patient. Please call with any questions. History of Present Illness History of present illness: Mr. Vizcarra is a 78 year old male All Systems Review: The remainder of the systems were reviewed and are negative Results 05/19/19 03:58 05/21/19 05:47
--- NOTE | 2019-05-19 10:08 | Electrocardiograph Report ---
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
--- NOTE | 2019-05-19 15:22 | Internal Med Progress Note ---
Hospitalist Progress Note - Encounter Date of Encounter: 05/19/19 Time of Encounter: 10:00 - Subjective Interval History: No major events overnight. Patient still has tachycardia however he does not feel it. He denied shortness of breath or chest pain. He has no dizziness or lightheadedness. He denies nausea/vomiting or abdominal pain. - Exam Vitals: Temp Pulse Resp BP Pulse Ox 97.7 F 118 18 124/75 96 05/19/19 11:35 05/19/19 11:35 05/19/19 11:35 05/19/19 11:35 05/19/19 11:35 Exam: General: Patient is alert, oriented 3. Head: Atraumatic, normal inspection, normocephalic. Eye: EOMI, PERRLA, no scleral icterus noted. ENT: Mucous membranes moist. No odontogenic infection noted. Neck: Normal inspection, no meningismus. Respiratory: No respiratory distress, rhonchi, or wheezes noted. Cardiovascular: Tachycardic and irregular rhythm, S1 and S2 audible. No murmurs, rubs, or gallops. GI: Soft, nondistended, normal bowel sounds. Extremities:No joint swelling, pedal edema, or tenderness noted. Neurological: Alert, oriented 3, no focal deficits. Psychiatric: normal affect, normal mood. Skin: Dry, intact, warm. Normal color. No rashes. - Assessment and Plan (1) NSTEMI (non-ST elevated myocardial infarction) Current Visit: Yes Status: Acute (2) Atrial fibrillation with RVR Current Visit: Yes Status: Acute (3) CKD (chronic kidney disease) stage 3, GFR 30-59 ml/min Current Visit: Yes Status: Chronic (4) COPD (chronic obstructive pulmonary disease) Current Visit: No Status: Chronic (5) Diabetes mellitus Current Visit: No Status: Chronic (6) DVT prophylaxis Current Visit: No Status: Acute (7) CAD (coronary artery disease), [place] coronary artery Current Visit: No Status: Chronic (8) Hyponatremia Current Visit: Yes Status: Acute - Summary of Assessment and Plan Summary of Assessment and Plan: 78-year-old male with history of A. fib S/P pacemaker, COPD, CAD, CABG, HTN, DM who was admitted to the hospital for tachycardia. His symptoms are managed as following. A. fib with RVR: Uncontrolled - Patient failed multiple treatment attempts. - Cardiology and EP service are on board, EP would adjust his pacemaker settings. - On IV fluids, will continue - Anticoagulation with eLIQUIS hyponatermia; new event - continue IVF, check BMP tomorrow NSTEMI: - Likely type II event in light of his tachycardia, but cannot rule out type I event. troponin peaked at 0.34 - EKG did not show any concordant changes in paced rhythm - C 10/2018 showed severe TVD and the plan then was to consider either CABG vs. staged PCI - Echo 03/2019 showed improvement in EF to 50-55%. Limited echocardiogram again demonstrated preserved EF - hep gtt d/todd, eliquis resumed. Continue plavix, bb, lipitor - for outpatient [facility] with rotablator with impella support. Ranexa added. Appreciate cardiology input IDDM: - On Lantus 16 units at home. - Continue Accu-Cheks 3 times a day before meals, medium sliding scale insulin. Continue Levemir and patient. COPD: - Not in exacerbation. Continue home dose inhalers. TY on CK D stage III: - ATN in light of hypotension on 05/17 and 05/18, Cr is at 1.4. - Continue to optimize blood pressure. Continue IV fluids. Check BMP tomorrow. - check UA, monitor I/O DVT ppx: On Eliquis. - Time Spent with Patient Total time spent is greater than 50% in coordination of care (as documented) at patient's floor/unit and/or counseling patient: Plan of Care Discussed with: patient Internal Medicine: Result - Labs CBC & Chem 7: 05/19/19 03:58 05/19/19 03:58 Labs: Short CBC 05/19/19 Range/Units 03:58 WBC 10.4 (4.3-11.1) K/mcL Hgb 11.0 L (12.9-16.9) g/dL Hct 37.4 L (37.5-50.1) % Plt Count 199 (140-400) K/mcL BMP 05/19/19 03:58 Sodium 134 L Potassium 4.6 Chloride 99 Carbon Dioxide 27 BUN 23 Creatinine 1.41 H Glucose 189 H Calcium 8.6 - ABG Interpretation ABG results: PT/INR, D-dimer PT 18.0 Seconds (9.4-12.1) H 05/16/19 13:59 Consult Discharge Plan - Plan Referrals: Jose Seymour DO [Primary Care Provider] - (4) COPD (chronic obstructive pulmonary disease) Qualifiers: COPD type: unspecified COPD Qualified Code(s): J44.9 - Chronic obstructive pulmonary disease, unspecified (5) Diabetes mellitus Qualifiers: Diabetes mellitus type: type 2 Diabetes mellitus mcc insulin use: with terminal carman use Diabetes mellitus complication status: with kidney complications Diabetes mellitus complication detail: with chronic kidney disease Chronic kidney disease stage: stage 2 (mild) Qualified Code(s): E11.22 - Type 2 diabetes mellitus with diabetic chronic kidney disease; N18.2 - Chronic kidney disease, stage 2 (mild); Z79.4 - MCC (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 insulin (7) CAD (coronary artery disease), [place] coronary artery Qualifiers: [place] vs. transplanted heart: [place] heart Associated angina: without angina Qualified Code(s): I25.10 - Atherosclerotic heart disease of [place] coronary artery without angina pectoris
[2019-05-19 16:37] LABS: Bilirubin,Urine Negative (Negative); Blood,Urine Negative (Negative); Clarity,Urine Clear (Clear); Color,Urine Yellow (Yellow); Glucose,Urine (UA) Normal (Normal); Ketones,Urine Negative (Negative); Leukocyte Esterase,Urine Negative (Negative); Nitrite,Urine Negative (Negative); Protein,Urine Negative (Neg-Trace); Specific Gravity,Urine 1.011 (1.010-1.025); Urobilinogen,Urine Normal (Normal)
[2019-05-19] MEDS: Insulin DETEMIR 100 UNIT/ML X5UNITS SQ SCH (20:20)
[2019-05-20] MEDS: Ondansetron 4 MG/2 ML VIAL IVP PRN ×2 (03:57→18:22)
[2019-05-20 05:32] LABS: Calcium 8.7 mg/dL (8.6-10.3); Potassium 4.7 mEq/L (3.5-5.1)
[2019-05-20] MEDS ORDERED: 0.9 % Sodium Chloride 500 ML IVC SCH ×2 (07:30→07:58)
[2019-05-20] MEDS: BuPROPion XL (24 HR) 150 MG TABLET PO SCH (07:59)
[2019-05-20] MEDS: Insulin LISPRO 300 UNITS/3 ML VIAL SQ SCH ×4 (07:59→21:01)
[2019-05-20] MEDS: Folic Acid 1 MG TABLET PO SCH (08:00)
[2019-05-20] MEDS: Magnesium Oxide 400 MG TABLET PO SCH ×2 (08:00→20:55)
[2019-05-20] MEDS: Apixaban 5 MG TABLET PO SCH ×2 (08:00→20:55)
[2019-05-20] MEDS: Metoprolol XL (24 HR) Succ 25 MG TAB.ER.24H PO SCH ×2 (08:00→20:54)
[2019-05-20] MEDS: Loratadine 10 MG TABLET PO SCH (08:00)
[2019-05-20] MEDS: Ranolazine 500 MG TAB.ER.12H PO SCH ×2 (08:00→20:55)
--- NOTE | 2019-05-20 08:01 | Event Note ---
Date of Encounter: 05/20/19 Time of Encounter: 07:30 - Cardiology Event Note EP consulted yesterday due to persistent tachycardia. s/p mode change from AAIR<=>DDDR @ 60/120 bpm to DDIR @ 60/120 BPM Avg HR= 66 (paced) overnight. Continue current medical therapy including toprol and ELiquis for AC. Patient will f/u with Dr. Salvador in the outpatient setting for high risk PCI evaluation. No further inpt recommendations, Cardiology will sign-off. Discussed and reviewed with Dr. Ladd who agrees with plan.
--- NOTE | 2019-05-20 10:22 | Electrocardiograph Report ---
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
[2019-05-20] MEDS: Tiotropium 18 MCG inhalation IH SCH (11:14)
[2019-05-20] MEDS: Budesonide/Formoterol 80/4.5 MDI IH SCH ×2 (11:15→19:17)
[2019-05-20 14:09] LABS: Calcium 8.7 mg/dL (8.6-10.3); Potassium 4.8 mEq/L (3.5-5.1)
--- NOTE | 2019-05-20 16:04 | Internal Med Progress Note ---
Hospitalist Progress Note - Encounter Date of Encounter: 05/20/19 Time of Encounter: 10:00 - Subjective Interval History: No major events overnight. Patient was seen this a.m. He denied fever, chills or night sweats. He has no nausea, vomiting or abdominal pain. Patient denied chest pain, shortness of breath or palpitation. - Exam Vitals: Temp Pulse Resp BP Pulse Ox 97.9 F 71 18 130/63 94 05/20/19 12:12 05/20/19 12:12 05/20/19 12:12 05/20/19 12:12 05/20/19 12:12 Exam: General: Patient is alert, oriented 3. Head: Atraumatic, normal inspection, normocephalic. Eye: EOMI, PERRLA, no scleral icterus noted. ENT: Mucous membranes moist. No odontogenic infection noted. Neck: Normal inspection, no meningismus. Respiratory: No respiratory distress, rhonchi, or wheezes noted. Cardiovascular: Tachycardic and regular rhythm, S1 and S2 audible. No murmurs, rubs, or gallops. GI: Soft, nondistended, normal bowel sounds. Extremities:No joint swelling, pedal edema, or tenderness noted. Neurological: Alert, oriented 3, no focal deficits. Psychiatric: normal affect, normal mood. Skin: Dry, intact, warm. Normal color. No rashes. - Assessment and Plan (1) Atrial fibrillation with RVR Current Visit: Yes Status: Acute (2) NSTEMI (non-ST elevated myocardial infarction) Current Visit: Yes Status: Acute (3) CKD (chronic kidney disease) stage 3, GFR 30-59 ml/min Current Visit: Yes Status: Chronic (4) COPD (chronic obstructive pulmonary disease) Current Visit: No Status: Chronic (5) Diabetes mellitus Current Visit: No Status: Chronic (6) DVT prophylaxis Current Visit: No Status: Acute (7) CAD (coronary artery disease), [place] coronary artery Current Visit: No Status: Chronic (8) Hyponatremia Current Visit: Yes Status: Acute - Summary of Assessment and Plan Summary of Assessment and Plan: 78-year-old male with history of A. fib S/P pacemaker, COPD, CAD, CABG, HTN, DM who was admitted to the hospital for tachycardia. His symptoms are managed as following. A. fib with RVR: resolved. - Patient failed multiple treatment attempts. EP was consulted, Pacemaker mode changed from DDDR @ 60/120 bpm to DDIR @ 60/120 BPM - Anticoagulation with eliquis, rate controlled with toprol, will continue hyponatermia; new event - continue IVF, check BMP tomorrow TY on CK D stage III: - likely 2/2 ATN in light of hypotension on 05/17 and 05/18, Cr is at 1.4. - Continue to optimize blood pressure. Continue IV fluids. Check BMP tomorrow. nephrology consulted. - check UA, monitor I/O NSTEMI: - Likely type II event in light of his tachycardia, but cannot rule out type I event. troponin peaked at 0.34 - EKG did not show any concordant changes in paced rhythm - LHC 10/2018 showed severe TVD and the plan then was to consider either CABG vs. staged PCI - Echo 03/2019 showed improvement in EF to 50-55%. Limited echocardiogram again demonstrated preserved EF - hep gtt d/todd, eliquis resumed. Continue plavix, bb, lipitor - for outpatient [facility] with rotablator with impella support. Ranexa added. Appreciate cardiology input IDDM: - On Lantus 16 units at home. - Continue Accu-Cheks 3 times a day before meals, medium sliding scale insulin and levemir. COPD: - Not in exacerbation. Continue home dose inhalers. DVT ppx: On Eliquis. disposition: discharge tomorrow. - Time Spent with Patient Total time spent is greater than 50% in coordination of care (as documented) at patient's floor/unit and/or counseling patient: Greater than 35 minutes Plan of Care Discussed with: patient Internal Medicine: Result - Labs CBC & Chem 7: 05/19/19 03:58 05/20/19 13:15 Labs: BMP 05/20/19 05/20/19 04:21 13:15 Sodium 134 L 132 L Potassium 4.7 4.8 Chloride 100 100 Carbon Dioxide 25 24 BUN 25 H 23 Creatinine 1.49 H 1.49 H Glucose 206 H 191 H Calcium 8.7 8.7 Urine 05/19/19 Range/Units 16:20 Urine Color Yellow (Yellow) Urine Clarity Clear (Clear) Urine pH 6.0 (5.0-8.0) pH Units Ur Specific Muse 1.011 (1.010-1.025) Urine Protein Negative (Neg-Trace) mg/dL Urine Glucose (UA) Normal (Normal) mg/dL - ABG Interpretation ABG results: PT/INR, D-dimer PT 18.0 Seconds (9.4-12.1) H 05/16/19 13:59 Consult Discharge Plan - Plan Referrals: Jose Seymour DO [Primary Care Provider] - (4) COPD (chronic obstructive pulmonary disease) Qualifiers: COPD type: unspecified COPD Qualified Code(s): J44.9 - Chronic obstructive pulmonary disease, unspecified (5) Diabetes mellitus Qualifiers: Diabetes mellitus type: type 2 Diabetes mellitus fci insulin use: with fci use Diabetes mellitus complication status: with kidney complications Diabetes mellitus complication detail: with chronic kidney disease Chronic kidney disease stage: stage 2 (mild) Qualified Code(s): E11.22 - Type 2 diabetes mellitus with diabetic chronic kidney disease; N18.2 - Chronic kidney disease, stage 2 (mild); Z79.4 - [place]erman (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 insulin (7) CAD (coronary artery disease), [place] coronary artery Qualifiers: [place] vs. transplanted heart: [place] heart Associated angina: without angina Qualified Code(s): I25.10 - Atherosclerotic heart disease of [place] coronary artery without angina pectoris
[2019-05-20] MEDS: 0.9 % Sodium Chloride 1,000 ML IVC SCH (16:41)
[2019-05-20 19:04] LABS: Sodium, Urine 32.5 mEq/L
[2019-05-20] MEDS: Acetaminophen 325 MG TABLET PO PRN (21:00)
[2019-05-20] MEDS: Insulin DETEMIR 100 UNIT/ML X5UNITS SQ SCH (21:01)
[2019-05-21] MEDS: Acetaminophen 325 MG TABLET PO PRN (02:59)
[2019-05-21] MEDS: 0.9 % Sodium Chloride 1,000 ML IVC SCH (02:59)
[2019-05-21 06:19] LABS: Calcium 8.8 mg/dL (8.6-10.3); Potassium 4.6 mEq/L (3.5-5.1)
[2019-05-21 07:40] VITALS: BP 109/63
[2019-05-21] MEDS: Budesonide/Formoterol 80/4.5 MDI IH SCH (07:43)
[2019-05-21] MEDS: Tiotropium 18 MCG inhalation IH SCH (07:43)
[2019-05-21] MEDS: Insulin LISPRO 300 UNITS/3 ML VIAL SQ SCH (07:56)
[2019-05-21] MEDS: Apixaban 5 MG TABLET PO SCH (07:56)
[2019-05-21] MEDS: Ranolazine 500 MG TAB.ER.12H PO SCH (07:56)
[2019-05-21] MEDS: Loratadine 10 MG TABLET PO SCH (07:57)
[2019-05-21] MEDS: Folic Acid 1 MG TABLET PO SCH (07:57)
[2019-05-21] MEDS: BuPROPion XL (24 HR) 150 MG TABLET PO SCH (07:57)
[2019-05-21] MEDS: Metoprolol XL (24 HR) Succ 25 MG TAB.ER.24H PO SCH (07:57)
[2019-05-21] MEDS: Magnesium Oxide 400 MG TABLET PO SCH (07:57)
--- NOTE | 2019-05-21 09:58 | Nephrology Consult Note ---
Date of Encounter: 05/21/19 Time of Encounter: 09:54 Assessment and Plan (1) Acute kidney injury Current Visit: No Status: Acute The patient has acute kidney injury that is likely secondary to hemodynamic changes that was associated with his age or fibrillation with rapid ventricular rate and subsequent hypotension. While the patient's renal function has worsened from his baseline that has been stable for the last 2 days. His urine output appears to be improving. Overall he has nonoliguric acute kidney injury that is likely ATN secondary to h ypotension. I anticipate that he will recover his kidney function. With the patient insisting that he go home I am not sure that there will be benefit from compelling him to stay in the hospital at this time. His creatinine is stable, his urine output is nonoliguric and improving. He does not have hyperkalemia. Provided that he follows up on outpatient basis with his primary direct support professional caregiver he should be safe for discharge and outpatient follow-up. I recommend getting a renal function panel 2 days after discharge and then again one week after discharge to ensure that his renal function continues to improve. We will defer to his primary direct support professional caregiver about the decision to follow-up with nephrology if his renal function does not return to baseline. Since the patient has a history of congestive heart failure and has a borderline cardiac output I recommend that he take his diuretics only if needed for weight gain until his renal function returns to baseline. The decision to switch to daily diuresis can be made either by his primary direct support professional caregiver or his outpatient straight cutter machine. Thank you for the consult at this time I will sign off. Please call with any questions or concerns. (2) Atrial fibrillation with RVR Current Visit: Yes Status: Acute (3) CAD (coronary artery disease) Current Visit: Yes Status: Chronic Qualifiers: Coronary Disease-Associated Artery/Lesion type: [place] artery [place] vs. 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 Vizcarra is a 68 yo man with a history of CAD who presents for evaluation of chest pain. His hospital stay was complicated by afib with RVR and hypotension . He subsequently developed TY with no known history of CKD. At the time my evaluation the patient denies chest pain, shortness breath, nausea, vomiting, or diarrhea. His is at his bedside. They are very anxious to go home. [facility] was consulted to assist with evaluation and management of his acute kidney injury. Past Med Surg Social Fam HX - Past Medical History Medical history: arthritis, CHF, COPD, diabetes, GERD, hyperlipidemia, hypertension Additional medical history: ANEMIA Psychiatric history: anxiety, depression - Past Surgical History Surgical History: angioplasty/stent, appendectomy, cancer surgery, cataract, cholecystectomy, herniorrhaphy, other, pacemaker Additional surgical history: 8 cardiac stents. 3 hernia repairs. cancer right ear - Social History Smoking Status: Former smoker Smokeless Tobacco Status: No Alcohol use: none Drug use: none - Family History Mother Family Member Ethnicity: Non- Living Status: Hx Family Cardiac Disorders: Yes (HD) Brother Family Member Ethnicity: Non- Living Status: Still Living Hx Family Cardiac Disorders: Yes Hx Family Cancer: Yes (Leukemia) Hx Family Endocrine Disorder: Yes (DM) Sister Family Member Ethnicity: Non- Living Status: Hx Family Cardiac Disorders: Yes (HD) Hx Family Cancer: Yes Father Family Member Ethnicity: Non- Living Status: Hx Family Cardiac Disorders: Yes Hx Family Respiratory Disorders: No Hx Family Cancer: No Hx Family GI Disorders: No Hx Family Endocrine Disorder: Yes (DM) Hx Family Neuromuscular Disorders: No Hx Family Neurologic Disorders: Yes (stroke) Hx Family HEENT Disorders: No Hx Family Autoimmune Disorders: No Medications and Allergies Albuterol Sulfate [Proventil Inhaler] 1 puff IH Q4H PRN 08/21/15 [History] Atorvastatin Calcium [Lipitor] 20 mg PO 1700 08/21/15 [History] Bupropion HCl [Wellbutrin Xl] 300 mg PO DAILY 08/21/15 [History] Insulin Glargine,Hum.rec.anlog [Lantus Solostar] 60 unit SQ HS 08/21/15 [History] Folic Acid 1 mg PO HS 12/18/15 [History] Clopidogrel [Plavix] 75 mg PO DAILY #30 tablet 06/20/16 [Rx] Potassium Chloride 10 meq PO DAILY #30 tab.er.prt 11/03/16 [Rx] [place]-3/Dha/Epa/Fish Oil [Fish Oil 1,000 mg Softgel] 1,000 mg PO TID 12/04/16 [History] Magnesium Oxide [Magnesium] 400 mg PO BID 04/16/17 [History] Ferrous Gluconate 324 mg PO DAILY 08/13/17 [History] Loratadine [Allergy Relief] 10 mg PO DAILY 04/15/18 [History] Pantoprazole Sodium 40 mg PO DAILY 04/15/18 [History] Tiotropium [Spiriva] 1 puff IH DAILY 04/15/18 [History] Cholecalciferol (Vitamin D3) [Vitamin D3] 2,000 unit PO DAILY 05/11/18 [History] Docusate [Colace] 100 mg PO DAILY 05/11/18 [History] Sertraline [Zoloft] 200 mg PO DAILY 05/11/18 [History] Ipratropium/Albuterol Neb [Duoneb] 3 ml IH Q6HR PRN 07/28/18 [History] Nitroglycerin [Nitrostat] 0.4 mg SL Q5MIN PRN 07/28/18 [History] Furosemide [Lasix] 40 mg PO DAILY 09/05/18 [History] Hydrocortisone 2.5% CREAM [Cortaid] 1 appl TP AD #1 tube 09/05/18 [Rx] Tamsulosin [Flomax] 0.4 mg PO DAILY 10/21/18 [History] Apixaban [Eliquis] 5 mg PO BID 01/05/19 [History] Cyanocobalamin (Vitamin B-12) [Vitamin B12] 1,000 mcg SL DAILY #30 tablet 01/12/19 [Rx] Fluticasone/Salmeterol [Advair 250-50 Diskus] 1 puff IH BID 05/17/19 [History] Insulin ASPART [Novolog Flexpen] 12 - 15 unit SQ TIDAC 05/17/19 [History] Allergy/AdvReac Type Severity Reaction Status Date / Time codeine Allergy Difficulty Verified 03/21/19 14:29 Breathing Homatropine AdvReac Insomnia Verified 03/21/19 14:29 [From Homatropaire] hydrocodone AdvReac Insomnia Verified 03/21/19 14:29 Review of Systems All Systems: reviewed and no additional remarkable complaints except as stated (as documented in hpi) Exam - Vital Signs Vital signs: Initial Vital Signs Temp Pulse Resp BP Pulse Ox 97.7 F 107 18 133/75 97 05/16/19 10:10 05/16/19 10:10 05/16/19 10:10 05/16/19 10:10 05/16/19 10:10 Vital Signs - Last 8 Hours Temp Pulse Resp BP Pulse Ox 05/21/19 07:44 18 96 05/21/19 07:38 97.6 F 69 18 109/63 96 05/21/19 04:06 97.6 F 61 20 127/61 93 Intake and Output 05/20/19 05/21/19 05/21/19 23:59 07:59 15:59 Intake Total 1000 / 1860 860 / 1860 Output Total 850 / 2850 575 / 900 325 / 900 Balance -850 / -890 425 / 960 535 / 960 Intake: IV Fluids 1000 / 1000 0.9 % Sodium Chloride 1,000 ML 1000 / 1000 @ 100 mls/hr IVC .Q10H [facility] Rx#: [id number] Oral 860 / 860 Output: Urine 850 / 2850 575 / 900 325 / 900 Other: Meal Breakfast Percent of Meal Consumed 100% # Voids 1 Weight 130.5 kg Blood Glucose* 252 173 - General Appearance General appearance: well-developed, well-nourished EENT: ATNC Neck: supple Respiratory: course breath sounds Cardiology: edema (Trace edema in bilateral lower extremities. ) Gastrointestinal: no tenderness Integumentary: warm and dry Neurologic: alert and oriented x3 Musculoskeletal: no cyanosis Psychiatric: mood/affect appropriate Results - Lab Results 05/19/19 03:58 05/21/19 05:47 Most recent lab results 05/21/19 05:47 Calcium 8.8 Consult Discharge Plan - Plan Referrals: Jose Seymour DO [Primary Care Provider] -
--- NOTE | 2019-05-21 10:55 | Discharge Summary ---
- NOTES TO OUTPATIENT PROVIDER Notes to Outpatient Provider: Follow-up with cardiology, nephrology and on kidneys function. Lasmarry is on hold due to a TY. Date of Encounter: 05/21/19 Time of Encounter: 10:15 - Discharge Diagnosis (1) Hyponatremia Priority: Primary Status: Acute (2) Atrial fibrillation with RVR Priority: Primary Status: Resolved (3) NSTEMI (non-ST elevated myocardial infarction) Priority: Secondary Status: Resolved (4) CKD (chronic kidney disease) stage 3, GFR 30-59 ml/min Priority: Secondary Status: Chronic (5) COPD (chronic obstructive pulmonary disease) Priority: Secondary Status: Chronic Qualifiers: COPD type: unspecified COPD Qualified Code(s): J44.9 - Chronic obstructive pulmonary disease, unspecified (6) Diabetes mellitus Priority: Secondary Status: Chronic Qualifiers: Diabetes mellitus type: type 2 Diabetes mellitus halfway insulin use: with halfway use Diabetes mellitus complication status: with kidney complications Diabetes mellitus complication detail: with chronic kidney disease Chronic kidney disease stage: stage 2 (mild) Qualified Code(s): E11.22 - Type 2 diabetes mellitus with diabetic chronic kidney disease; N18.2 - Chronic kidney disease, stage 2 (mild); Z79.4 - MCC (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 insulin (7) DVT prophylaxis Priority: Secondary Status: Acute (8) CAD (coronary artery disease), [place] coronary artery Priority: Secondary Status: Chronic Qualifiers: [place] vs. transplanted heart: [place] heart Associated angina: without angina Qualified Code(s): I25.10 - Atherosclerotic heart disease of [place] coronary artery without angina pectoris (9) Acute kidney injury Priority: Secondary Status: Acute Hospital course: 78-year-old male with history of A. fib S/P pacemaker, COPD, CAD, CABG, HTN, DM who was admitted to the hospital for tachycardia and chest pain. His symptoms are managed as following. A. fib with RVR: - Patient failed multiple treatment attempts including IVF and loading with digoxin. EP was consulted by cardiology service, Pacemaker mode changed from DDDR @ 60/120 bpm to DDIR @ 60/120 BPM with resolution of his tachycardia. Cardiogenic service added Toprol-XL 50 mg twice daily for his rate control. He remained anticoagulated with Eliquis. TY on CK D stage III: - likely 2/2 ATN in light of hypotension and tachycardia, Cr remains stable at 1.4 even with IV fluids. Nephrology service was consulted and since the patient and his family wanted to leave, recommendation is to check his BMP in 3 days and in 1 week. An see nephrology service as outpatient. He was also advised to stop his Lasix and only take it if he gains weight OR get leg swelling or short of breath. Patient and family verbalized understanding. NSTEMI: Likely type II event in light of his tachycardia. Troponin peaked at 0.34. EKG did not show any concordant changes in paced rhythm. Previous LHC 10/2018 showed severe TVD and the plan then was to consider either CABG vs. staged PCI. Echo 03/2019 showed improvement in EF to 50-55%. Limited echocardiogram again demonstrated preserved EF. Cardiology service evaluated the patient and he re commended outpatient [facility] with rotablator with impella support. Ranexa added. Patient was also placed on Plavix but no aspirin since he would require Eliquis for A.fib. Today, patient is hemodynamically stable. Asymptomatic. He will be discharged home in stable condition. 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 Discharge discussed with: patient - Time Spent with Patient Total time spent providing and/or coordinating discharge services: 40 minutes - Discharge Medications Prescriptions: New Apixaban [Eliquis] 5 mg PO BID tablet Ranolazine [Ranexa] 500 mg PO BID #60 tab.er.12h Metoprolol XL (24 HR) Succ [Toprol Xl] 25 mg PO BID #60 tab.er.24h Continued Insulin Glargine,Hum.rec.anlog [Lantus Solostar] 60 unit SQ HS Bupropion HCl [Wellbutrin Xl] 300 mg PO DAILY Atorvastatin Calcium [Lipitor] 20 mg PO 1700 Albuterol Sulfate [Proventil Inhaler] 1 puff IH Q4H PRN PRN Reason: Shortness Of Breath Folic Acid 1 mg PO HS Clopidogrel [Plavix] 75 mg PO DAILY #30 tablet [place]-3/Dha/Epa/Fish Oil [Fish Oil 1,000 mg Softgel] 1,000 mg PO TID Magnesium Oxide [Magnesium] 400 mg PO BID Ferrous Gluconate 324 mg PO DAILY Loratadine [Allergy Relief] 10 mg PO DAILY Pantoprazole Sodium 40 mg PO DAILY Tiotropium [Spiriva] 1 puff IH DAILY Cholecalciferol (Vitamin D3) [Vitamin D3] 2,000 unit PO DAILY Sertraline [Zoloft] 200 mg PO DAILY Docusate [Colace] 100 mg PO DAILY Nitroglycerin [Nitrostat] 0.4 mg SL Q5MIN PRN PRN Reason: Chest Pain Ipratropium/Albuterol Neb [Duoneb] 3 ml IH Q6HR PRN PRN Reason: Shortness Of Breath Hydrocortisone 2.5% CREAM [Cortaid] 1 appl TP AD #1 tube Tamsulosin [Flomax] 0.4 mg PO DAILY Cyanocobalamin (Vitamin B-12) [Vitamin B12] 1,000 mcg SL DAILY #30 tablet Fluticasone/Salmeterol [Advair 250-50 Diskus] 1 puff IH BID Insulin ASPART [Novolog Flexpen] 12 - 15 unit SQ TIDAC Discontinued Furosemide [Lasix] 40 mg PO DAILY Apixaban [Eliquis] 5 mg PO BID Potassium Chloride 10 meq PO DAILY #30 tab.er.prt Home Medications: Albuterol Sulfate [Proventil Inhaler] 1 puff IH Q4H PRN 08/21/15 [History] Atorvastatin Calcium [Lipitor] 20 mg PO 1700 08/21/15 [History] Bupropion HCl [Wellbutrin Xl] 300 mg PO DAILY 08/21/15 [History] Insulin Glargine,Hum.rec.anlog [Lantus Solostar] 60 unit SQ HS 08/21/15 [History] Folic Acid 1 mg PO HS 12/18/15 [History] Clopidogrel [Plavix] 75 mg PO DAILY #30 tablet 06/20/16 [Rx] [place]-3/Dha/Epa/Fish Oil [Fish Oil 1,000 mg Softgel] 1,000 mg PO TID 12/04/16 [History] Magnesium Oxide [Magnesium] 400 mg PO BID 04/16/17 [History] Ferrous Gluconate 324 mg PO DAILY 08/13/17 [History] Loratadine [Allergy Relief] 10 mg PO DAILY 04/15/18 [History] Pantoprazole Sodium 40 mg PO DAILY 04/15/18 [History] Tiotropium [Spiriva] 1 puff IH DAILY 04/15/18 [History] Cholecalciferol (Vitamin D3) [Vitamin D3] 2,000 unit PO DAILY 05/11/18 [History] Docusate [Colace] 100 mg PO DAILY 05/11/18 [History] Sertraline [Zoloft] 200 mg PO DAILY 05/11/18 [History] Ipratropium/Albuterol Neb [Duoneb] 3 ml IH Q6HR PRN 07/28/18 [History] Nitroglycerin [Nitrostat] 0.4 mg SL Q5MIN PRN 07/28/18 [History] Hydrocortisone 2.5% CREAM [Cortaid] 1 appl TP AD #1 tube 09/05/18 [Rx] Tamsulosin [Flomax] 0.4 mg PO DAILY 10/21/18 [History] Cyanocobalamin (Vitamin B-12) [Vitamin B12] 1,000 mcg SL DAILY #30 tablet 01/12/19 [Rx] Fluticasone/Salmeterol [Advair 250-50 Diskus] 1 puff IH BID 05/17/19 [History] Insulin ASPART [Novolog Flexpen] 12 - 15 unit SQ TIDAC 05/17/19 [History] Apixaban [Eliquis] 5 mg PO BID tablet 05/21/19 [Rx] Metoprolol XL (24 HR) Succ [Toprol Xl] 25 mg PO BID #60 tab.er.24h 05/21/19 [Rx] Ranolazine [Ranexa] 500 mg PO BID #60 tab.er.12h 05/21/19 [Rx] Allergies/Adverse Reactions: Allergy/AdvReac Type Severity Reaction Status Date / Time codeine Allergy Difficulty Verified 03/21/19 14:29 Breathing Homatropine AdvReac Insomnia Verified 03/21/19 14:29 [From Homatropaire] hydrocodone AdvReac Insomnia Verified 03/21/19 14:29 Date of admission: 05/16/19 14:33 Primary care physician: Jose Seymour DO Consults: 05/16/19 12:23 Consult to Cardiology [CONS] Routine Comment: Consulting Provider: Cardiology Tiffany Reason for Consult: NSTEMI, known TVD and CABG vs. staged PCI was previously discussed. Call Completed: Yes 05/18/19 08:32 Consult to Cardiac Rehabilitation-Phase1 [CONS] Routine Comment: Reason for Consult: elevated trop, plan for rotablade in a few weeks Call Completed: No 05/19/19 13:19 Consult to Electrophysiology (EP) [CONS] Routine Consulting Provider: Electrophysiology [place] Reason for Consult: afib Call Completed: Yes 05/20/19 14:25 Consult to Nephrology [CONS] Routine Consulting Provider: Kidney Tiffany/WENDY/BEN/[place] Reason for Consult: TY with hyponatermia Call Completed: Yes - Constitutional Vitals: Temp Pulse Resp BP Pulse Ox 97.6 F 69 18 109/63 96 05/21/19 07:38 05/21/19 07:38 05/21/19 07:44 05/21/19 07:38 05/21/19 07:44 Exam: General: Patient is alert, oriented 3. Head: Atraumatic, normal inspection, normocephalic. Eye: EOMI, PERRLA, no scleral icterus noted. ENT: Mucous membranes moist. Neck: Normal inspection, no meningismus. Respiratory: No respiratory distress, rhonchi, or wheezes noted. Cardiovascular: Regular rate and Irregular rhythm, S1 and S2 audible. No murmurs, rubs, or gallops. GI: Soft, nondistended, normal bowel sounds. Extremities:No joint swelling, pedal edema, or tenderness noted. Neurological: Alert, oriented 3, no focal deficits. Psychiatric: normal affect, normal mood. Skin: Dry, intact, warm. Normal color. No rashes. - Patient Status Disposition: Home, Self-Care Condition: Fair Functional capacity at discharge: uses cane/walker Overall status at discharge: patient is back to baseline - Discharge Instructions Instructions: Atrial Fibrillation (DC) Follow Up With: Vance Meier DO [Partnered Physician] - (web-requested, the office will call the patient to schedule a follow up appointment. ) Jose Seymour DO [Primary Care Provider] - (web-requested, the office will call the patient to schedule a follow up appointmet. ) - Diet and Activity Activity: resume usual activities as tolerated Diet: diabetic diet, low salt diet
== END 2019-05-21 11:22 | disposition home or self-care (01) | DRG 280 ==
LOC: EMEROOARM 10:08 → 2ANU 10:08 → SUATTDRO 14:33
PROVIDERS: ADMIT Internal Medicine; ATTEND Internal Medicine

== ENCOUNTER 2019-05-22 18:05 | Observation (INO) ==
[2019-05-22 19:21] LABS: Basophils % 0.2 %; Eosinophils # 0.2 K/mcL (0.0-0.6); Eosinophils % 1.5 %; Hematocrit 34.8 % (37.5-50.1); Hemoglobin 10.6 g/dL (12.9-16.9); Immature Granulocytes % 0.7 % (0-4); Lymphocytes # 1.2 K/mcL (0.6-4.6); Lymphocytes % 12.1 %; Mean Corpuscular HGB Conc 30.5 g/dL (31.6-35.5); Mean Corpuscular Hemoglobin 24.1 pg (28.0-33.3); Mean Corpuscular Volume 79.3 fL (83.0-100.0); Mean Platelet Volume 10.2 fL (9.4-12.4); Monocytes # 0.6 K/mcL (0.0-1.3); Monocytes % 5.8 %; Neutrophils # 8.1 K/mcL (1.6-8.9); Platelet Count 226 K/mcL (140-400); Red Blood Count 4.39 M/mcL (4.19-5.50); Segmented Neutrophils % 79.7 %; White Blood Count 10.2 K/mcL (4.3-11.1)
[2019-05-22 19:33] LABS: Troponin I 0.2 ng/mL (< 0.04)
[2019-05-22 19:34] LABS: Potassium 4.3 mEq/L (3.5-5.1)
[2019-05-22] MEDS ORDERED: Furosemide 40 MG/4 ML VIAL IVP ONE (20:28)
[2019-05-22 20:40] LABS: INR 1.8; Prothrombin Time 20.1 Seconds (9.4-12.1)
[2019-05-22 20:43] LABS: Activated Partial Thrombo Time 39.1 Seconds (26.0-36.0)
--- NOTE | 2019-05-22 20:45 | Emergency Department Note ---
Disposition Clinical Impression: Pulmonary edema, Shortness of breath, Orthopnea Disposition: Admitted As Inpatient Condition: Fair Referrals: Jose Seymour DO [Primary Care Provider] - Forms: ED Satisfaction Letter Time of Disposition: 21:41 SOB HPI - General Chief Complaint: ED Shortness of Breath/Dyspnea Stated Complaint: Retaining Fluid/SOB Time Seen by Provider: 05/22/19 19:54 Source: patient Mode of arrival: EMS Limitations: no limitations Nursing Notes Reviewed: Yes Vital Signs Reviewed: Yes - History of Present Illness Patient presents emergency room the care of the family for evaluation of what is described as expiratory wheezing difficulty with breathing and orthopnea that came on this afternoon. Patient has a known history of congestive heart failure and the family thought that was what was going on here today. They brought him here for evaluation. Patient was just discharged from the hospital after having a workup and treatment course is established and completed there. Pt Subjective Complaint: shortness of breath Onset (ago): day(s) Context: other Severity: mild Consistency/Duration: constant Improves with: rest, upright position Worsens with: lying flat, exertion Known history of: congestive heart failure Associated symptoms: Reports: orthopnea Treatment prior to arrival: none Cough present: No - Related Data Home Medications Medication Instructions Recorded Confirmed Albuterol Sulfate [Proventil 1 puff IH Q4H PRN 08/21/15 05/22/19 Inhaler] Atorvastatin Calcium [Lipitor] 20 mg PO 1700 08/21/15 05/22/19 Bupropion HCl [Wellbutrin Xl] 300 mg PO DAILY 08/21/15 05/22/19 Insulin Glargine,Hum.rec.anlog 65 unit SQ HS 08/21/15 05/22/19 [Lantus Solostar] Folic Acid 1 mg PO HS 12/18/15 05/22/19 [place]-3/Dha/Epa/Fish Oil [Fish Oil 1,000 mg PO TID 12/04/16 05/22/19 1,000 mg Softgel] Magnesium Oxide [Magnesium] 400 mg PO BID 04/16/17 05/22/19 Ferrous Gluconate 324 mg PO DAILY 08/13/17 05/22/19 Loratadine [Allergy Relief] 10 mg PO DAILY 04/15/18 05/22/19 Pantoprazole Sodium 40 mg PO DAILY 04/15/18 05/22/19 Tiotropium [Spiriva] 1 puff IH DAILY 04/15/18 05/22/19 Cholecalciferol (Vitamin D3) 2,000 unit PO DAILY 05/11/18 05/22/19 [Vitamin D3] Docusate [Colace] 100 mg PO DAILY 05/11/18 05/22/19 Sertraline [Zoloft] 200 mg PO DAILY 05/11/18 05/22/19 Ipratropium/Albuterol Neb [Duoneb] 3 ml IH Q6HR PRN 07/28/18 05/22/19 Nitroglycerin [Nitrostat] 0.4 mg SL Q5MIN PRN 07/28/18 05/22/19 Tamsulosin [Flomax] 0.4 mg PO DAILY 10/21/18 05/22/19 Fluticasone/Salmeterol [Advair 1 puff IH BID 05/17/19 05/22/19 250-50 Diskus] Insulin ASPART [Novolog Flexpen] 12 - 15 unit SQ TIDAC 05/17/19 05/22/19 Ranolazine [Ranexa] 500 mg PO BID 05/22/19 05/22/19 Previous Rx's Medication Instructions Recorded Clopidogrel [Plavix] 75 mg PO DAILY #30 tablet 06/20/16 Hydrocortisone 2.5% CREAM [Cortaid] 1 appl TP AD #1 tube 09/05/18 Cyanocobalamin (Vitamin B-12) 1,000 mcg SL DAILY #30 tablet 01/12/19 [Vitamin B12] Apixaban [Eliquis] 5 mg PO BID tablet 05/21/19 Metoprolol XL (24 HR) Succ [Toprol 25 mg PO BID #60 tab.er.24h 05/21/19 Xl] Allergies Allergy/AdvReac Type Severity Reaction Status Date / Time codeine Allergy Difficulty Verified 03/21/19 14:29 Breathing Homatropine AdvReac Insomnia Verified 03/21/19 14:29 [From Homatropaire] hydrocodone AdvReac Insomnia Verified 03/21/19 14:29 All systems ED: reviewed and negative except as stated. Review of Systems: As Per HPI Constitutional: Denies: fever, chills, weakness Cardiovascular: Reports: dyspnea on exertion, orthopnea, edema. Denies: chest pain, palpitations Respiratory: Reports: dyspnea. Denies: cough, wheezes Gastrointestinal: Denies: abdominal pain, nausea, vomiting, diarrhea Genitourinary: Reports: frequency. Denies: urgency, dysuria Musculoskeletal: Denies: back pain, neck pain Integumentary: Denies: rash Past Medical History - Past Medical History Attestation: Yes The following information was validated with the patient. Source: patient Medical history: Reports: arthritis, CHF, COPD, diabetes, GERD, hyperlipidemia, hypertension Surgical history: Reports: angioplasty/stent, appendectomy, cancer surgery, isidoro ract, cholecystectomy, herniorrhaphy, other, pacemaker Psychiatric history: Reports: anxiety, depression - Social History Smoking Status: Former smoker Smokeless Tobacco Status: No Alcohol use: Reports: none Drug use: Reports: none Physical Exam - General Limitations: no limitations General appearance: alert, in no apparent distress - Head Head exam: atraumatic, normocephalic, normal inspection - ENT ENT exam: normal exam, normal oropharynx, mucous membranes moist - Neck Neck exam: Present: normal inspection, full ROM, trachea midline - Chest Chest inspection: Present: normal inspection, symmetric chest wall rise. Absent: tenderness - Respiratory Respiratory exam: Present: normal lung sounds bilaterally, respiratory distress, accessory muscle use. Absent: wheezes, stridor - Cardiovascular Cardiovascular exam: Present: regular rate, normal rhythm, normal heart sounds - Abdominal Exam Abdominal exam: Present: soft, Non-Tender, distention. Absent: tenderness, guarding, rebound, rigidity - Extremities Exam Extremities exam: Present: normal inspection, full ROM, normal capillary refill, pedal edema. Absent: tenderness - Back Exam Back exam: Present: normal inspection - Neurological Exam Neurological exam: Present: alert, oriented X3, CN II-XII intact, normal gait - Skin Skin exam: Present: warm, dry, intact, normal color Course Course Narrative: Patient seen and examined the time of arrival. See history of present illness. 78-year-old male presents emergency room for evaluation of increased work of breathing orthopnea. Patient has long-standing history of congestive heart failure. He has had 8 stents in the past as well as a pacemaker placed secondary to atrial fibrillation. Patient is on Eliquis at baseline for anticoagulation. Vital signs are reviewed and are stable on presentation. Patient is alert and oriented. He is denying any active chest pain fevers or chills. He has not had any nausea vomiting or diarrhea. No headache no vision change. He has not had any fevers or chills. He has not traveled outside the country. He was just discharged from the hospital several days ago for fluid accumulation as well as lab abnormalities. He been doing well at home with an acutely today he has no shortness of breath. He has had this happen several times the past when he gets fluid overloaded. He has gained almost 20 pounds since going home and his belly is distended according to him. He has been having normal urinary output as well as bowel movements with no acute changes. He has no history of liver related dysfunction or abnormality. Vital signs are reviewed and are stable. Patient is sitting upright the bed and comfortable. Lungs are diminished in bilateral bases with intermittent crackles. Heart is regular. Pacemaker is in place with no complications. Abdomen is soft but is distended. He has no point tenderness guarding rigidity or peritoneal symptoms noted on exam at this time. Extremities do show pitting edema all over the past the knee bilaterally. He has normal sensation with no other acute issue. Patient will have evaluation with CBC chemistry troponin and BNP chest x-ray and CT imaging the abdomen. Lasix will be ordered as well as liver function testing. Coagulation studies will be added on an aspirin given. Patient had all the labs initially drawn on the triage area and they were positive for elevated troponin as well as elevated BNP. Patient does have chronic troponin leak and this is about his baseline at this point as well as a BNP that is about her baseline as well. Symptomatic control to be completed and admission process will be established. Pulmonary congestion and edema are noted on the chest x- ray and I reviewed these myself and there does appear to be some interval changes with worsening be lined distribution across the bases of the bilateral lungs. - Reevaluation(s) Reevaluation #1: Patient has what appears to be cirrhosis of the liver with no acute findings of ascites in the abdomen. No other acute pathology noted on evaluation of the ab domen by CT scan. Urinalysis is still pending but otherwise does not change the disposition at this point. Patient does not have any acute infection. He is diuresing appropriately here in the emergency department. Remainder of his liver function testing and imaging have been reviewed. The hospitalist and I discussed reviewed the presentation and symptoms. Dr. Sam reviewed the case he did not have any other questions concerns or issues at this time. Patient will be monitored here in emergency department until the admission process is completed for what appears to be heart failure. He does have a history of multiple cardiac related stents and a recent echo that was a limited study that showed an EF of 50-55%. Patient is otherwise stable at this time. Patient uses oxygen at night. He uses 2 L at that time and typically does not require it throughout the day. Patient is otherwise at baseline at the time of admission Time: 21:40 Vital Signs Temperature 97.3 F L 05/22/19 18:06 Pulse Rate 82 05/22/19 18:06 Respiratory Rate 20 05/22/19 18:06 Blood Pressure 143/68 05/22/19 18:06 O2 Sat by Pulse Oximetry 97 05/22/19 18:06 Temperature 97.3 F L 05/22/19 18:06 Pulse Rate 60 05/22/19 21:11 Respiratory Rate 16 05/22/19 21:11 Blood Pressure 117/72 05/22/19 21:11 O2 Sat by Pulse Oximetry 95 05/22/19 21:11 Oxygen Delivery Oxygen Delivery Room Air Shortness of Breath/Dyspnea - MDM Narrative Medical decision making narrative: Pulmonary edema, congestive heart failure, orthopnea - Medical Records Medical records reviewed: Yes I reviewed the patient's medical records. - Lab Data Lab results reviewed: Yes I reviewed the patient's lab results. Result diagrams: 05/22/19 18:54 05/22/19 18:54 Lab Results 05/22/19 05/22/19 05/22/19 Range/Units 18:54 18:54 18:54 WBC 10.2 (4.3-11.1) K/mcL RBC 4.39 (4.19-5.50) M/mcL Hgb 10.6 L (12.9-16.9) g/dL Hct 34.8 L (37.5-50.1) % MCV 79.3 L (83.0-100.0) fL MCH 24.1 L (28.0-33.3) pg MCHC 30.5 L (31.6-35.5) g/dL RDW 18.0 H (11.5-14.5) % Plt Count 226 (140-400) K/mcL MPV 10.2 (9.4-12.4) fL Immature Gran % 0.7 (0-4) % Seg Neutrophils % 79.7 % Lymphocytes % 12.1 % Monocytes % 5.8 % Eosinophils % 1.5 % Basophils % 0.2 % Neutrophils # 8.1 (1.6-8.9) K/mcL Lymphocytes # 1.2 (0.6-4.6) K/mcL Monocytes # 0.6 (0.0-1.3) K/mcL Eosinophils # 0.2 (0.0-0.6) K/mcL Basophils # 0.0 (0.0-0.2) K/mcL PT (9.4-12.1) Seconds INR APTT (26.0-36.0) Seconds Sodium 135 L (136-145) mEq/L Potassium 4.3 (3.5-5.1) mEq/L Chloride 101 (98-107) mEq/L Carbon Dioxide 26 (23-29) mEq/L BUN 26 H (8-23) mg/dL Creatinine 1.49 H (0.70-1.30) mg/dL Est GFR ( Amer) 55 L (> 60) Est GFR (Non-Af Amer) 45 L (> 60) BUN/Creatinine Ratio 17 (6-26) Glucose 129 H (70-105) mg/dL Calculated Osmolality 286 (280-300) Lactic Acid 0.6 (0.5-2.2) mmol/L Calcium 9.0 (8.6-10.3) mg/dL Total Bilirubin 0.4 (0.3-1.0) mg/dL Direct Bilirubin 0.1 (0.0-0.2) mg/dL Indirect Bilirubin 0.3 (0.0-1.2) mg/dL AST 11 L (13-39) Units/L ALT 13 (7-52) Units/L Alkaline Phosphatase 53 (34-104) Units/L Troponin I 0.20 H* (< 0.04) ng/mL B-Natriuretic Peptide (Less than 100) pg/mL Serum Total Protein 6.8 (6.4-8.9) g/dL Albumin 3.9 (3.5-5.7) g/dL Globulin 2.9 (2.4-3.5) g/dL Albumin/Globulin Ratio 1.3 (1.1-2.2) 05/22/19 05/22/19 Range/Units 18:54 18:54 WBC (4.3-11.1) K/mcL RBC (4.19-5.50) M/mcL Hgb (12.9-16.9) g/dL Hct (37.5-50.1) % MCV (83.0-100.0) fL MCH (28.0-33.3) pg MCHC (31.6-35.5) g/dL RDW (11.5-14.5) % Plt Count (140-400) K/mcL MPV (9.4-12.4) fL Immature Gran % (0-4) % Seg Neutrophils % % Lymphocytes % % Monocytes % % Eosinophils % % Basophils % % Neutrophils # (1.6-8.9) K/mcL Lymphocytes # (0.6-4.6) K/mcL Monocytes # (0.0-1.3) K/mcL Eosinophils # (0.0-0.6) K/mcL Basophils # (0.0-0.2) K/mcL PT 20.1 H (9.4-12.1) Seconds INR 1.8 APTT 39.1 H (26.0-36.0) Seconds Sodium (136-145) mEq/L Potassium (3.5-5.1) mEq/L Chloride (98-107) mEq/L Carbon Dioxide (23-29) mEq/L BUN (8-23) mg/dL Creatinine (0.70-1.30) mg/dL Est GFR ( Amer) (> 60) Est GFR (Non-Af Amer) (> 60) BUN/Creatinine Ratio (6-26) Glucose (70-105) mg/dL Calculated Osmolality (280-300) Lactic Acid (0.5-2.2) mmol/L Calcium (8.6-10.3) mg/dL Total Bilirubin (0.3-1.0) mg/dL Direct Bilirubin (0.0-0.2) mg/dL Indirect Bilirubin (0.0-1.2) mg/dL AST (13-39) Units/L ALT (7-52) Units/L Alkaline Phosphatase (34-104) Units/L Troponin I (< 0.04) ng/mL B-Natriuretic Peptide 561 H (Less than 100) pg/mL Serum Total Protein (6.4-8.9) g/dL Albumin (3.5-5.7) g/dL Globulin (2.4-3.5) g/dL Albumin/Globulin Ratio (1.1-2.2) - Radiology Data Radiology results reviewed: Yes I reviewed the patient's radiology results. Chest x-ray shows bilateral pulmonary edema in the lower lobes - EKG Data EKG attestation: Yes I reviewed and interpreted this EKG. EKG results narrative: EKG shows atrially and ventricularly paced rhythm. Heart rate of 79. No acute signs of underlying ST segment elevation or abnormality. Stable bundle branch block along with T-wave inversions are noted. Compared to previous EKGs on 05/18/19 with no acute changes.
[2019-05-22] MEDS ORDERED: Aspirin 81 MG TAB.CHEW PO STA (20:47)
[2019-05-22 20:49] LABS: Albumin 3.9 g/dL (3.5-5.7); Albumin/Globulin Ratio 1.3 (1.1-2.2); Bilirubin,Direct 0.1 mg/dL (0.0-0.2); Bilirubin,Indirect 0.3 mg/dL (0.0-1.2); Bilirubin,Total 0.4 mg/dL (0.3-1.0); Globulin 2.9 g/dL (2.4-3.5); Total Protein 6.8 g/dL (6.4-8.9)
[2019-05-23] MEDS ORDERED: Naloxone 0.4 MG/ML INJ IVP PRN (02:35)
[2019-05-23 03:12] LABS: Hematocrit 34.1 % (37.5-50.1); Hemoglobin 10.5 g/dL (12.9-16.9); Mean Corpuscular HGB Conc 30.8 g/dL (31.6-35.5); Mean Corpuscular Hemoglobin 24.2 pg (28.0-33.3); Mean Corpuscular Volume 78.8 fL (83.0-100.0); Mean Platelet Volume 9.9 fL (9.4-12.4); Platelet Count 218 K/mcL (140-400); Red Blood Count 4.33 M/mcL (4.19-5.50); White Blood Count 9.4 K/mcL (4.3-11.1)
[2019-05-23 03:26] LABS: Calcium 9.2 mg/dL (8.6-10.3); INR 1.7; Potassium 4.1 mEq/L (3.5-5.1); Prothrombin Time 19.8 Seconds (9.4-12.1)
--- NOTE | 2019-05-23 03:37 | Internal Med History&Physical ---
Date of Encounter: 05/23/19 Time of Encounter: 03:13 Internal Medicine - H&P: HPI Chief complaint: Fluid overload Admitted From: Emergency Dept Plans for Post Hospital Care: Home History of present illness: Mr. Vizcarra is a 78 year old male Patient presented to the emergency department after recently being discharged from the hospital 2 days ago. He was discharged after being treated for an STEMI, acute on chronic stage III kidney disease, atrial fibrillation and CHF. At that time Lasix was discontinued, and patient was instructed to only take the medicine that he was beginning to gain weight or if he noted leg swelling and shortness of breath. After patient was sent home, he states that he began seeing fluid accumulation in his legs and his abdomen. He also became short of breath. He tried taking the medicine at home, but it did not seem to help. He returned to the ER for further evaluation. In the emergency department patient's initial vital signs were within normal limits CBC remarkable for hemoglobin of 10.6, near where he had been at discharge. BMP demonstrated in elevated creatinine of 1.49 which was but it had been at time of discharge, glucose was 129 Troponin 0.20 up from 0.11 at time of discharge. BNP 561 Lactic acid 0.6 Chest x-ray pulmonary vascular congestion and edema Abdominal CT showed no acute abdominal pelvic process, no ascites. EKG demonstrated a ventricularly paced rhythm with a rate of 111. No ischemic changes Emergency department patient received 40 mg of Lasix and 324 mg aspirin. He was admitted to the hospital for further management. Upon my evaluation, patient was resting comfortably in hospital bed in no acute distress. He denies chest pain, abdominal pain, nausea, vomiting, diarrhea, constipation. He did have some shortness of breath this is improved. He did express some abdominal pain while he was in the emergency department but this has resolved. He says he has had a 20 pound weight gain since his discharge. His is at bedside and confirms that he had become more swollen in his legs and abdomen. He is a full code. Past Med Surg Social Fam HX - Past Medical History Medical history: arthritis, CHF, COPD, diabetes, GERD, hyperlipidemia, hypertension Additional medical history: ANEMIA Psychiatric history: anxiety, depression - Past Surgical History Surgical History: angioplasty/stent, appendectomy, cancer surgery, cataract, cholecystectomy, herniorrhaphy, other, pacemaker Additional surgical history: 8 cardiac stents. 3 hernia repairs. cancer right ear - Social History Smoking Status: Former smoker Smokeless Tobacco Status: No Alcohol use: none Drug use: none - Family History Mother Family Member Ethnicity: Non- Living Status: Hx Family Cardiac Disorders: Yes (HD) Brother Family Member Ethnicity: Non- Living Status: Still Living Hx Family Cardiac Disorders: Yes Hx Family Cancer: Yes (Leukemia) Hx Family Endocrine Disorder: Yes (DM) Sister Family Member Ethnicity: Non- Living Status: Hx Family Cardiac Disorders: Yes (HD) Hx Family Cancer: Yes Father Family Member Ethnicity: Non- Living Status: Hx Family Cardiac Disorders: Yes Hx Family Respiratory Disorders: No Hx Family Cancer: No Hx Family GI Disorders: No Hx Family Endocrine Disorder: Yes (DM) Hx Family Neuromuscular Disorders: No Hx Family Neurologic Disorders: Yes (stroke) Hx Family HEENT Disorders: No Hx Family Autoimmune Disorders: No Internal Medicine - H&P: Meds Albuterol Sulfate [Proventil Inhaler] 1 puff IH Q4H PRN 08/21/15 [History] Atorvastatin Calcium [Lipitor] 20 mg PO 1700 08/21/15 [History] Bupropion HCl [Wellbutrin Xl] 300 mg PO DAILY 08/21/15 [History] Insulin Glargine,Hum.rec.anlog [Lantus Solostar] 65 unit SQ HS 08/21/15 [History] Folic Acid 1 mg PO HS 12/18/15 [History] Clopidogrel [Plavix] 75 mg PO DAILY #30 tablet 06/20/16 [Rx] [place]-3/Dha/Epa/Fish Oil [Fish Oil 1,000 mg Softgel] 1,000 mg PO TID 12/04/16 [History] Magnesium Oxide [Magnesium] 400 mg PO BID 04/16/17 [History] Ferrous Gluconate 324 mg PO DAILY 08/13/17 [History] Loratadine [Allergy Relief] 10 mg PO DAILY 04/15/18 [History] Pantoprazole Sodium 40 mg PO DAILY 04/15/18 [History] Tiotropium [Spiriva] 1 puff IH DAILY 04/15/18 [History] Cholecalciferol (Vitamin D3) [Vitamin D3] 2,000 unit PO DAILY 05/11/18 [History] Docusate [Colace] 100 mg PO DAILY 05/11/18 [History] Sertraline [Zoloft] 200 mg PO DAILY 05/11/18 [History] Ipratropium/Albuterol Neb [Duoneb] 3 ml IH Q6HR PRN 07/28/18 [History] Nitroglycerin [Nitrostat] 0.4 mg SL Q5MIN PRN 07/28/18 [History] Hydrocortisone 2.5% CREAM [Cortaid] 1 appl TP AD #1 tube 09/05/18 [Rx] Tamsulosin [Flomax] 0.4 mg PO DAILY 10/21/18 [History] Cyanocobalamin (Vitamin B-12) [Vitamin B12] 1,000 mcg SL DAILY #30 tablet 01/12/19 [Rx] Fluticasone/Salmeterol [Advair 250-50 Diskus] 1 puff IH BID 05/17/19 [History] Insulin ASPART [Novolog Flexpen] 12 - 15 unit SQ TIDAC 05/17/19 [History] Apixaban [Eliquis] 5 mg PO BID tablet 05/21/19 [Rx] Metoprolol XL (24 HR) Succ [Toprol Xl] 25 mg PO BID #60 tab.er.24h 05/21/19 [Rx] Ranolazine [Ranexa] 500 mg PO BID 05/22/19 [History] Allergy/AdvReac Type Severity Reaction Status Date / Time codeine Allergy Difficulty Verified 03/21/19 14:29 Breathing Homatropine AdvReac Insomnia Verified 03/21/19 14:29 [From Homatropaire] hydrocodone AdvReac Insomnia Verified 03/21/19 14:29 All Systems PM: A 10-system review of systems was performed and is negative for pertinent findings except as documented above in the HPI. - Constitutional Vitals: Temp Pulse Resp BP Pulse Ox 97.9 F 74 16 135/76 93 05/22/19 22:58 05/22/19 22:58 05/22/19 22:58 05/22/19 22:58 05/22/19 22:58 General appearance: Present: cooperative, A&O X 3, pleasant, no acute distress, answers questions appropriately Exam: - - Head Head exam: Present: normal inspection - Eye Eye exam: Present: EOMI, normal appearance - Respiratory Respiratory exam: Present: rales. Absent: decreased breath sounds, CTAB, respiratory distress, rhonchi, wheezes - Cardiovascular Cardiovascular exam: Present: RRR. Absent: diastolic murmur, systolic murmur - GI/Abdominal GI/Abdominal exam: Present: distended, normal bowel sounds, soft. Absent: tenderness - Extremities Exam Extremities exam: Present: warm, radial pulses palpable and symmetrical. Absent: calf tenderness, pedal edema, tenderness - Neurological Exam Neurological exam: Present: no focal deficits, strengths equal and symetr throughout. Absent: motor sensory deficit, facial droop, speech deficit - Skin Skin exam: Present: dry, normal color, warm Internal Med - H&P Results - Labs CBC & Chem 7: 05/23/19 02:53 05/23/19 02:53 Labs: Short CBC 05/22/19 05/23/19 Range/Units 18:54 02:53 WBC 10.2 9.4 (4.3-11.1) K/mcL Hgb 10.6 L 10.5 L (12.9-16.9) g/dL Hct 34.8 L 34.1 L (37.5-50.1) % Plt Count 226 218 (140-400) K/mcL Neutrophils # 8.1 (1.6-8.9) K/mcL BMP 05/22/19 05/23/19 18:54 02:53 Sodium 135 L 139 Potassium 4.3 4.1 Chloride 101 99 Carbon Dioxide 26 31 H BUN 26 H 27 H Creatinine 1.49 H 1.56 H Glucose 129 H 171 H Calcium 9.0 9.2 Cardiac Enzymes 05/22/19 Range/Units 18:54 Troponin I 0.20 H* (< 0.04) ng/mL Liver Function 05/22/19 Range/Units 18:54 Total Bilirubin 0.4 (0.3-1.0) mg/dL Direct Bilirubin 0.1 (0.0-0.2) mg/dL AST 11 L (13-39) Units/L ALT 13 (7-52) Units/L Alkaline Phosphatase 53 (34-104) Units/L Albumin 3.9 (3.5-5.7) g/dL - Impressions ITS Impressions Chest X-Ray 05/22/19 18:10 IMPRESSION: Cardiomegaly with pulmonary vascular congestion and edema D/ / León Myers / León Myers Interpreting Provider: León Myers Abdomen/Pelvis CT 05/22/19 20:15 IMPRESSION: 1. No acute abdominopelvic process. 2. Probable cirrhosis with splenomegaly. No ascites 3. Colonic diverticulosis 4. Prostatic enlargement 5. Right larger than left small pleural effusions D/ / Luis M Ibarra MD / Luis M Ibarra MD Interpreting Provider: Luis M Ibarra MD - Assessment and Plan (1) Shortness of breath Current Visit: Yes Status: Acute Assessment and plan: Secondary to fluid overload. Patient given IV Lasix in the emergency departme nt. Patient says he has had a 20 pound weight gain in the last few days. Continue to monitor urine output Strict I's and O's Daily weights Cautious use of Lasix Breathing treatments as needed Fluid restricted diabetic diet (2) Elevated troponin Current Visit: No Status: Acute Assessment and plan: Patient's troponin was elevated at 0.20 in the ER. Patient denies chest pain, EKG does not indicate ischemic changes however it is a ventricularly paced rhythm. Repeat troponin improved to 0.17. Cardiac monitoring Continue to trend troponin (3) Acute on chronic renal failure Current Visit: Yes Status: Acute Assessment and plan: Patient's creatinine elevated above his baseline, likely due to his Lasix use which was addressed during his previous admission. Patient did receive 40 mg of Lasix in the emergency department. We will need to continue gentle diuresis with respect to the patient's kidney function Continue to monitor renal function. Avoid nephrotoxic medicines Renally dose meds Qualifiers: Acute renal failure type: unspecified Chronic kidney disease stage: stage 3 (moderate) Qualified Code(s): N17.9 - Acute kidney failure, unspecified; N18.3 - Chronic kidney disease, stage 3 (moderate) (4) Diabetes mellitus Current Visit: No Status: Chronic Assessment and plan: Patient is an insulin dependent diabetic Monitor sugars ACHS Diabetic diet Low dose insulin sliding scale as needed Hold home meds. 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 Diabetes mellitus complication status: with hyperglycemia Qualified Code(s): E11.65 - Type 2 diabetes mellitus with hyperglycemia; Z79.4 - jail (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 insulin (5) Atrial fibrillation Current Visit: No Status: Chronic Assessment and plan: Continue Eliquis and metoprolol Qualifiers: Atrial fibrillation type: paroxysmal Qualified Code(s): I48.0 - Paroxysmal atrial fibrillation (6) DVT prophylaxis Current Visit: No Status: Acute Assessment and plan: Continue home Eliquis - Time Spent With Patient Total time spent is greater than 50% in coordination of care (as documented) at patient's floor/unit and/or counseling patient: Greater than 35 minutes
[2019-05-23] MEDS ORDERED: D5% in Water 1,000 ML IVC PRN (04:04)
[2019-05-23] MEDS ORDERED: *HR* Dextrose 50 % in Water (Syg) 50 ML SYRINGE IVP PRN (04:04)
[2019-05-23] MEDS ORDERED: Dextrose Gel 15 GM/37.5 ML TUBE PO PRN ×2 (04:04)
[2019-05-23] MEDS ORDERED: Albuterol 2.5 MG/3 ML NEBULIZER IH PRN (04:08)
[2019-05-23] MEDS ORDERED: Nitroglycerin 0.4 MG TAB.SUBL SL PRN (08:13)
[2019-05-23] MEDS ORDERED: Ipratropium/Albuterol Neb 3 ML IH PRN (08:13)
[2019-05-23] MEDS: Insulin LISPRO 300 UNITS/3 ML VIAL SQ SCH ×6 (08:17→23:51)
[2019-05-23] MEDS: Metoprolol XL (24 HR) Succ 25 MG TAB.ER.24H PO SCH ×2 (08:18→21:54)
[2019-05-23] MEDS: Apixaban 5 MG TABLET PO SCH ×2 (08:18→21:54)
[2019-05-23] MEDS ORDERED: NON-FORMULARY MEDICATION 1 EACH EACH (Omega-3/Dha/Epa/Fish Oil [Fish Oil 1,000 Mg Softgel] PO SCH (09:00)
[2019-05-23] MEDS: Magnesium Oxide 400 MG TABLET PO SCH ×2 (09:28→21:54)
[2019-05-23] MEDS: Cholecalciferol (D-3) 1,000 UNIT (25MCG) TABLET PO SCH (09:28)
[2019-05-23] MEDS: BuPROPion XL (24 HR) 150 MG TABLET PO SCH (09:28)
[2019-05-23] MEDS: Loratadine 10 MG TABLET PO SCH (09:28)
[2019-05-23] MEDS: Ranolazine 500 MG TAB.ER.12H PO SCH ×2 (09:31→21:54)
[2019-05-23] MEDS: Budesonide/Formoterol 80/4.5 MDI IH SCH ×2 (10:00→20:06)
[2019-05-23] MEDS: Tiotropium 18 MCG inhalation IH SCH (10:01)
--- NOTE | 2019-05-23 15:13 | Event Note ---
Date of Encounter: 05/23/19 Time of Encounter: 15:12 Patient is a 78y/o male admitted for acute respiratory distress secondary to CHF exacerbation. Pt seen and examined with present at bedside. Patient states he wears oxygen at night and intermittently during the day as needed. He received Lasix 40mg IV overnight in the ER. He had taken 2 doses of lasix prior to arrival to the ER. Pt reports of diuresing well all night and all morning. He states he already feels significantly better. noted to have worsening of renal function. Currently saturating 96% on 2L NC (baseline home oxygen is 2L). Will hold off on administrating any further diuretics today given improvement in clinical presentation and worsening renal function. Reassess clinical status in am and administer lasix as needed If renal function allows, pt will benefit from daily diuretic support Labs and vitals reviewed Care plan discussed with patient/RN/family
--- NOTE | 2019-05-23 16:42 | Electrocardiograph Report ---
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
[2019-05-23] MEDS: Folic Acid 1 MG TABLET PO SCH (21:54)
[2019-05-23] MEDS: Insulin DETEMIR 100 UNIT/ML X5UNITS SQ SCH (21:55)
[2019-05-24 05:04] LABS: Basophils % 0.3 %; Eosinophils # 0.1 K/mcL (0.0-0.6); Eosinophils % 1.3 %; Hemoglobin 10.2 g/dL (12.9-16.9); Immature Granulocytes % 0.3 % (0-4); Lymphocytes % 10.9 %; Mean Corpuscular Hemoglobin 23.9 pg (28.0-33.3); Mean Corpuscular Volume 79.6 fL (83.0-100.0); Mean Platelet Volume 9.9 fL (9.4-12.4); Monocytes # 0.5 K/mcL (0.0-1.3); Monocytes % 5.5 %; Neutrophils # 7.4 K/mcL (1.6-8.9); Platelet Count 232 K/mcL (140-400); Red Blood Count 4.27 M/mcL (4.19-5.50); Red Cell Distribution Width 18.3 % (11.5-14.5); Segmented Neutrophils % 81.7 %; White Blood Count 9.1 K/mcL (4.3-11.1)
[2019-05-24 05:26] LABS: BUN/Creatinine Ratio 19 (6-26); Blood Urea Nitrogen 25 mg/dL (8-23); Calcium 9.1 mg/dL (8.6-10.3); Carbon Dioxide 32 mEq/L (23-29); Chloride 100 mEq/L (98-107); Glucose 184 mg/dL (70-105); Osmolality,Calculated 297 (280-300); Phosphorous 3.4 mg/dL (2.7-4.5); Potassium 4.2 mEq/L (3.5-5.1); Sodium 139 mEq/L (136-145); eGFR For African Americans > 60 (> 60); eGFR For Non-African Americans 54 (> 60)
[2019-05-24] MEDS: Budesonide/Formoterol 80/4.5 MDI IH SCH ×2 (07:50→21:47)
[2019-05-24] MEDS: Tiotropium 18 MCG inhalation IH SCH (07:51)
[2019-05-24] MEDS: Ranolazine 500 MG TAB.ER.12H PO SCH ×2 (08:10→20:22)
[2019-05-24] MEDS: BuPROPion XL (24 HR) 150 MG TABLET PO SCH (08:10)
[2019-05-24] MEDS: Cholecalciferol (D-3) 1,000 UNIT (25MCG) TABLET PO SCH (08:10)
[2019-05-24] MEDS: Metoprolol XL (24 HR) Succ 25 MG TAB.ER.24H PO SCH ×2 (08:11→20:22)
[2019-05-24] MEDS: Magnesium Oxide 400 MG TABLET PO SCH ×2 (08:11→20:22)
[2019-05-24] MEDS: Apixaban 5 MG TABLET PO SCH ×2 (08:11→20:22)
[2019-05-24] MEDS: Loratadine 10 MG TABLET PO SCH (08:11)
[2019-05-24] MEDS: Insulin LISPRO 300 UNITS/3 ML VIAL SQ SCH ×7 (08:12→20:20)
[2019-05-24] MEDS ORDERED: Torsemide 20 MG TABLET PO SCH (09:07)
--- NOTE | 2019-05-24 09:10 | Internal Med Progress Note ---
Hospitalist Progress Note - Encounter Date of Encounter: 05/24/19 Time of Encounter: 09:08 - Subjective Interval History: Patient denies shortness of breath this morning. Satting well on room air. Not needing oxygen for ambulation. Ready to go home. Creatinine looks better today. - Exam Vitals: Temp Pulse Resp BP Pulse Ox 97.5 F L 69 16 126/86 92 05/24/19 06:40 05/24/19 06:40 05/24/19 07:52 05/24/19 06:40 05/24/19 07:52 Exam: General: Ill-appearing and in no acute distress HEENT: No erythema of posterior pharynx. No exudates. Lymphatics: No mandibular or cervical lymphadenopathy Cardiovascular: RRR. No murmurs. No chest wall tenderness. Lungs: Clear to auscelltation bilaterally. Regular chest rise. Abdomen: Non-tender. No rebound or gaurding. Nl bowel sounds. Extremities: Trace edema. 2+ pulses radial and pedal pulses Skin: No rahses, abrasions, or contusions. Nl cap refill. Psych: Nl attention. A&Ox3 Neuro: necktie turner II-XII intact. 5/5 strength. Sensation to light touch and pinprick intact. - Assessment and Plan (1) Acute and chronic respiratory failure with hypoxia Current Visit: Yes Status: Acute Assessment and Plan: Patient with history of HFpEF presents with acute on chronic hypoxic respiratory failure and abdominal swelling in the setting of recent discontinuation of Lasix due to worsening renal function. -Patient is status post 40 mg IV Lasix in the emergency department on admission and has significantly improved since -Diuresis held yesterday due to worsening renal function -Renal function improved today and patient is at his dry weight -May benefit from switching to torsemide given endorse abdominal swelling and trying to take his Lasix at home when he noted swelling and endorsing no benefit from this PLAN: - Torsemide 20 mg daily - Strict intake and output and daily weights - Can likely discharge tomorrow if creatinine is stable (2) Acute exacerbation of CHF (congestive heart failure) Current Visit: No Status: Acute Assessment and Plan: See above (3) Acute on chronic renal failure Current Visit: Yes Status: Acute Assessment and Plan: In setting of recent STEMI and angiography. Now back to his baseline. (4) Atrial fibrillation Current Visit: No Status: Chronic Assessment and Plan: Rates currently controlled on home metoprolol. Also on Apixaban for anticoagulation. (5) Diabetes mellitus Current Visit: No Status: Chronic Assessment and Plan: Sugars currently controlled (6) Elevated troponin Current Visit: No Status: Acute Assessment and Plan: Likely type II demand ischemia in setting of CHF exacerbation (7) CAD (coronary artery disease) Current Visit: Yes Status: Acute Assessment and Plan: Extensive cardiac history with multiple studies. Recent admission for an NSTEMI. Cardiology recommended medical management at that time with possible outpatient left heart catheterization Will follow up with cardiology outpatient. DVT Prophylaxis: Home Apixaban - Time Spent with Patient Total time spent is greater than 50% in coordination of care (as documented) at patient's floor/unit and/or counseling patient: Greater than 35 minutes Plan of Care Discussed with: patient Internal Medicine: Result - Labs CBC & Chem 7: 05/24/19 04:33 05/24/19 04:33 Labs: Short CBC 05/24/19 Range/Units 04:33 WBC 9.1 (4.3-11.1) K/mcL Hgb 10.2 L (12.9-16.9) g/dL Hct 34.0 L (37.5-50.1) % Plt Count 232 (140-400) K/mcL Neutrophils # 7.4 (1.6-8.9) K/mcL BMP 05/24/19 04:33 Sodium 139 Potassium 4.2 Chloride 100 Carbon Dioxide 32 H BUN 25 H Creatinine 1.29 Glucose 184 H Calcium 9.1 Cardiac Enzymes 05/23/19 Range/Units 08:56 Troponin I 0.13 H* (< 0.04) ng/mL - ABG Interpretation ABG results: PT/INR, D-dimer PT 19.8 Seconds (9.4-12.1) H 05/23/19 02:53 Consult Discharge Plan - Plan Referrals: Jose Seymour DO [Primary Care Provider] - 05/30/19 11:30 am (3) Acute on chronic renal failure Qualifiers: Acute renal failure type: unspecified Chronic kidney disease stage: stage 3 (moderate) Qualified Code(s): N17.9 - Acute kidney failure, unspecified; N18.3 - Chronic kidney disease, stage 3 (moderate) (4) Atrial fibrillation Qualifiers: Atrial fibrillation type: paroxysmal Qualified Code(s): I48.0 - Paroxysmal atrial fibrillation (5) Diabetes mellitus Qualifiers: Diabetes mellitus type: type 2 Diabetes mellitus fpc insulin use: with terminal gauger use Diabetes mellitus complication status: with hyperglycemia Quali fied Code(s): E11.65 - Type 2 diabetes mellitus with hyperglycemia; 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 transplanted heart: [place] heart Associated angina: with stable angina Qualified Code(s): I25.118 - Atherosclerotic heart disease of [place] coronary artery with other forms of angina pectoris
[2019-05-24] MEDS: Folic Acid 1 MG TABLET PO SCH (20:22)
[2019-05-24] MEDS: Insulin DETEMIR 100 UNIT/ML X5UNITS SQ SCH (20:22)
[2019-05-25 05:38] LABS: Magnesium 2.1 mg/dL (1.6-2.6); Potassium 4.2 mEq/L (3.5-5.1)
[2019-05-25 06:42] VITALS: BP 122/61
--- NOTE | 2019-05-25 08:48 | Discharge Summary ---
Date of Encounter: 05/25/19 Time of Encounter: 08:41 - Discharge Diagnosis (1) Acute and chronic respiratory failure with hypoxia Priority: Primary Status: Acute (2) Heart failure, diastolic, with acute decompensation Priority: Secondary Status: Acute (3) Acute on chronic renal failure Priority: Secondary Status: Acute Qualifiers: Acute renal failure type: unspecified Chronic kidney disease stage: stage 3 (moderate) Qualified Code(s): N17.9 - Acute kidney failure, unspecified; N18.3 - Chronic kidney disease, stage 3 (moderate) (4) Atrial fibrillation Priority: Secondary Status: Chronic Qualifiers: Atrial fibrillation type: paroxysmal Qualified Code(s): I48.0 - Paroxysmal atrial fibrillation (5) Diabetes mellitus Priority: Secondary Status: Chronic Qualifiers: Diabetes mellitus type: type 2 Diabetes mellitus long term care administrator insulin use: with long term care administrator use Diabetes mellitus complication status: with kidney complications Diabetes mellitus complication detail: with chronic kidney disease Chronic kidney disease stage: stage 3 (moderate) Qualified Code(s): E11.22 - Type 2 diabetes mellitus with diabetic chronic kidney disease; N18.3 - Chronic kidney disease, stage 3 (moderate); Z79.4 - USP (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 insulin (6) Elevated troponin Priority: Secondary Status: Acute (7) CAD (coronary artery disease) Priority: Secondary Status: Acute Qualifiers: Coronary Disease-Associated Artery/Lesion type: [place] artery [place] vs. transplanted heart: [place] heart Associated angina: with stable angina Qualified Code(s): I25.118 - Atherosclerotic heart disease of [place] coronary artery with other forms of angina pectoris Hospital course: Mr. Vizcarra is a 78 year old male with history of HFpEF presented with acute on chronic hypoxic respiratory failure and abdominal swelling in the setting of recent discontinuation of Lasix due to worsening renal function. Patient's respiratory status improved with IV Lasix however diuresis limited by renal function. Slight bump in creatinine on day of discharge, however, patient very insistent on wanting to leave so discharged on lower dose of diuretic (torsemide 10 mg). Patient instructed to take his weight when he gets home and every morning thereafter. If he gains greater than 1 pound take extra 10 mg of torsemide. He will follow up closely with his primary care provider to repeat renal function. Discharge discussed with: patient - Time Spent with Patient Total time spent providing and/or coordinating discharge services: Time spent: Greater than 30 minutes - Discharge Medications Prescriptions: New Torsemide [Demadex] 10 mg PO DAILY #30 tablet Continued Insulin Glargine,Hum.rec.anlog [Lantus Solostar] 65 unit SQ HS Bupropion HCl [Wellbutrin Xl] 300 mg PO DAILY Atorvastatin Calcium [Lipitor] 20 mg PO 1700 Albuterol Sulfate [Proventil Inhaler] 1 puff IH Q4H PRN PRN Reason: Shortness Of Breath Folic Acid 1 mg PO HS Clopidogrel [Plavix] 75 mg PO DAILY #30 tablet [place]-3/Dha/Epa/Fish Oil [Fish Oil 1,000 mg Softgel] 1,000 mg PO TID Magnesium Oxide [Magnesium] 400 mg PO BID Ferrous Gluconate 324 mg PO DAILY Loratadine [Allergy Relief] 10 mg PO DAILY Pantoprazole Sodium 40 mg PO DAILY Tiotropium [Spiriva] 1 puff IH DAILY Cholecalciferol (Vitamin D3) [Vitamin D3] 2,000 unit PO DAILY Sertraline [Zoloft] 200 mg PO DAILY Docusate [Colace] 100 mg PO DAILY Ipratropium/Albuterol Neb [Duoneb] 3 ml IH Q6HR PRN PRN Reason: Shortness Of Breath Hydrocortisone 2.5% CREAM [Cortaid] 1 appl TP AD #1 tube Tamsulosin [Flomax] 0.4 mg PO DAILY Cyanocobalamin (Vitamin B-12) [Vitamin B12] 1,000 mcg SL DAILY #30 tablet Fluticasone/Salmeterol [Advair 250-50 Diskus] 1 puff IH BID Insulin ASPART [Novolog Flexpen] 12 - 15 unit SQ TIDAC Apixaban [Eliquis] 5 mg PO BID tablet Metoprolol XL (24 HR) Succ [Toprol Xl] 25 mg PO BID #60 tab.er.24h Ranolazine [Ranexa] 500 mg PO BID Nitroglycerin [Nitrostat] 0.4 mg SL Q5MIN PRN #30 tab.subl PRN Reason: Chest Pain Home Medications: Albuterol Sulfate [Proventil Inhaler] 1 puff IH Q4H PRN 08/21/15 [History] Atorvastatin Calcium [Lipitor] 20 mg PO 1700 08/21/15 [History] Bupropion HCl [Wellbutrin Xl] 300 mg PO DAILY 08/21/15 [History] Insulin Glargine,Hum.rec.anlog [Lantus Solostar] 65 unit SQ HS 08/21/15 [History] Folic Acid 1 mg PO HS 12/18/15 [History] Clopidogrel [Plavix] 75 mg PO DAILY #30 tablet 06/20/16 [Rx] [place]-3/Dha/Epa/Fish Oil [Fish Oil 1,000 mg Softgel] 1,000 mg PO TID 12/04/16 [History] Magnesium Oxide [Magnesium] 400 mg PO BID 04/16/17 [History] Ferrous Gluconate 324 mg PO DAILY 08/13/17 [History] Loratadine [Allergy Relief] 10 mg PO DAILY 04/15/18 [History] Pantoprazole Sodium 40 mg PO DAILY 04/15/18 [History] Tiotropium [Spiriva] 1 puff IH DAILY 04/15/18 [History] Cholecalciferol (Vitamin D3) [Vitamin D3] 2,000 unit PO DAILY 05/11/18 [History] Docusate [Colace] 100 mg PO DAILY 05/11/18 [History] Sertraline [Zoloft] 200 mg PO DAILY 05/11/18 [History] Ipratropium/Albuterol Neb [Duoneb] 3 ml IH Q6HR PRN 07/28/18 [History] Hydrocortisone 2.5% CREAM [Cortaid] 1 appl TP AD #1 tube 09/05/18 [Rx] Tamsulosin [Flomax] 0.4 mg PO DAILY 10/21/18 [History] Cyanocobalamin (Vitamin B-12) [Vitamin B12] 1,000 mcg SL DAILY #30 tablet 01/12/19 [Rx] Fluticasone/Salmeterol [Advair 250-50 Diskus] 1 puff IH BID 05/17/19 [History] Insulin ASPART [Novolog Flexpen] 12 - 15 unit SQ TIDAC 05/17/19 [History] Apixaban [Eliquis] 5 mg PO BID tablet 05/21/19 [Rx] Metoprolol XL (24 HR) Succ [Toprol Xl] 25 mg PO BID #60 tab.er.24h 05/21/19 [Rx] Ranolazine [Ranexa] 500 mg PO BID 05/22/19 [History] Nitroglycerin [Nitrostat] 0.4 mg SL Q5MIN PRN #30 tab.subl 05/25/19 [Rx] Torsemide [Demadex] 10 mg PO DAILY #30 tablet 05/25/19 [Rx] Allergies/Adverse Reactions: Allergy/AdvReac Type Severity Reaction Status Date / Time codeine Allergy Difficulty Verified 03/21/19 14:29 Breathing Homatropine AdvReac Insomnia Verified 03/21/19 14:29 [From Homatropaire] hydrocodone AdvReac Insomnia Verified 03/21/19 14:29 Date of admission: 05/22/19 21:44 Primary care physician: Jose Seymour DO Consults: 05/23/19 04:08 Consult to Nurse Navigator [CONS] Routine Comment: - Constitutional Vitals: Temp Pulse Resp BP Pulse Ox 98.2 F 60 14 122/61 91 05/25/19 06:41 05/25/19 06:41 05/25/19 06:41 05/25/19 06:41 05/25/19 06:41 General appearance: Present: cooperative, A&O X 3, pleasant, no acute distress, answers questions appropriately Exam: General: Ill-appearing and in no acute distress HEENT: No erythema of posterior pharynx. No exudates. Lymphatics: No mandibular or cervical lymphadenopathy Cardiovascular: RRR. No murmurs. No chest wall tenderness. Lungs: Clear to auscelltation bilaterally. Regular chest rise. Abdomen: Non-tender. No rebound or gaurding. Nl bowel sounds. Extremities: No edema. 2+ pulses radial and pedal pulses Skin: No rahses, abrasions, or contusions. Nl cap refill. Psych: Nl attention. A&Ox3 Neuro: chemist intern II-XII intact. 5/5 strength. Sensation to light touch and pinprick intact. - Patient Status Disposition: Home, Self-Care Condition: Good Functional capacity at discharge: independent ambulation Overall status at discharge: patient is back to baseline - Discharge Instructions Follow Up With: Jose Seymour DO [Primary Care Provider] - 05/30/19 11:30 am - Diet and Activity Activity: increase activity as tolerated Diet: low salt diet
[2019-05-25] MEDS: Loratadine 10 MG TABLET PO SCH (08:53)
[2019-05-25] MEDS: Insulin LISPRO 300 UNITS/3 ML VIAL SQ SCH ×2 (08:53)
[2019-05-25] MEDS: Apixaban 5 MG TABLET PO SCH (08:54)
[2019-05-25] MEDS: Magnesium Oxide 400 MG TABLET PO SCH (08:54)
[2019-05-25] MEDS: BuPROPion XL (24 HR) 150 MG TABLET PO SCH (08:55)
[2019-05-25] MEDS: Cholecalciferol (D-3) 1,000 UNIT (25MCG) TABLET PO SCH (08:55)
[2019-05-25] MEDS: Ranolazine 500 MG TAB.ER.12H PO SCH (08:55)
[2019-05-25] MEDS: Metoprolol XL (24 HR) Succ 25 MG TAB.ER.24H PO SCH (08:55)
[2019-05-25] MEDS ORDERED: Torsemide 20 MG TABLET PO SCH (09:00)
[2019-05-25] MEDS: Budesonide/Formoterol 80/4.5 MDI IH SCH (10:43)
[2019-05-25] MEDS: Tiotropium 18 MCG inhalation IH SCH (10:44)
== END 2019-05-25 11:14 | disposition home or self-care (01) ==
LOC: 2NENU 18:05 → EMEROOARM 18:05 → SUATTDRO 21:44 → 2NENU 22:00
PROVIDERS: ADMIT Family Medicine; ATTEND Internal Medicine

== ENCOUNTER 2019-08-16 13:52 | Observation (INO) ==
[2019-08-16] MEDS ORDERED: Ondansetron ODT 4 MG TAB.RAPDIS SL ONE (14:08)
[2019-08-16] MEDS ORDERED: cefTRIAXone 1,000 MG in Water for inj. (sterile) 10 ML IVP ONE (14:40)
[2019-08-16] MEDS ORDERED: Azithromycin 500 MG in 0.9 % Sodium Chloride 250 ML IVPB ONE (14:40)
[2019-08-16 15:26] LABS: Basophils % 0.3 %; Eosinophils # 0.1 K/mcL (0.0-0.6); Eosinophils % 0.7 %; Hematocrit 32.4 % (37.5-50.1); Hemoglobin 9.9 g/dL (12.9-16.9); Immature Granulocytes % 0.4 % (0-4); Lymphocytes # 0.9 K/mcL (0.6-4.6); Lymphocytes % 7.4 %; Mean Corpuscular HGB Conc 30.6 g/dL (31.6-35.5); Mean Corpuscular Hemoglobin 23.9 pg (28.0-33.3); Mean Corpuscular Volume 78.3 fL (83.0-100.0); Mean Platelet Volume 8.9 fL (9.4-12.4); Monocytes # 0.6 K/mcL (0.0-1.3); Monocytes % 5.2 %; Neutrophils # 10.5 K/mcL (1.6-8.9); Platelet Count 196 K/mcL (140-400); Red Blood Count 4.14 M/mcL (4.19-5.50); Red Cell Distribution Width 20.2 % (11.5-14.5); White Blood Count 12.2 K/mcL (4.3-11.1)
[2019-08-16 15:35] LABS: INR 1.9; Prothrombin Time 21.5 Seconds (9.4-12.1)
[2019-08-16 15:48] LABS: Alanine Aminotransferase 10 Units/L (7-52); Albumin 4.1 g/dL (3.5-5.7); Albumin/Globulin Ratio 1.4 (1.1-2.2); Alkaline Phosphatase 50 Units/L (34-104); Aspartate Amino Transferase 12 Units/L (13-39); BUN/Creatinine Ratio 18 (6-26); Bilirubin,Total 0.9 mg/dL (0.3-1.0); Blood Urea Nitrogen 24 mg/dL (8-23); Calcium 8.7 mg/dL (8.6-10.3); Carbon Dioxide 26 mEq/L (23-29); Chloride 97 mEq/L (98-107); Glucose 99 mg/dL (70-105); Osmolality,Calculated 270 (280-300); Potassium 4.6 mEq/L (3.5-5.1); Sodium 128 mEq/L (136-145); Total Protein 7.1 g/dL (6.4-8.9); eGFR For African Americans > 60 (> 60); eGFR For Non-African Americans 51 (> 60)
[2019-08-16] MEDS ORDERED: Naloxone 0.4 MG/ML INJ IVP PRN (16:07)
[2019-08-16] MEDS ORDERED: Dextrose Gel 15 GM/37.5 ML TUBE PO PRN ×2 (16:09)
[2019-08-16] MEDS ORDERED: *HR* Dextrose 50 % in Water (Syg) 50 ML SYRINGE IVP PRN (16:09)
[2019-08-16] MEDS ORDERED: D5% in Water 1,000 ML IVC PRN (16:09)
[2019-08-16] MEDS ORDERED: Ipratropium/Albuterol Neb 3 ML IH PRN (16:09)
[2019-08-16 16:24] LABS: Bilirubin,Urine Negative (Negative); Blood,Urine Negative (Negative); Clarity,Urine Clear (Clear); Color,Urine Yellow (Yellow); Glucose,Urine (UA) Normal (Normal); Ketones,Urine Negative (Negative); Leukocyte Esterase,Urine Negative (Negative); Nitrite,Urine Negative (Negative); Protein,Urine Negative (Neg-Trace); Specific Gravity,Urine 1.015 (1.010-1.025); Urobilinogen,Urine Normal (Normal)
[2019-08-16] MEDS ORDERED: 0.9 % Sodium Chloride 1,000 ML IVC SCH (16:45)
[2019-08-16] MEDS: Insulin LISPRO 300 UNITS/3 ML VIAL SQ SCH ×2 (17:50→21:10)
[2019-08-16] MEDS: Ondansetron 4 MG/2 ML VIAL IVP PRN (19:47)
[2019-08-16 20:22] LABS: Adenovirus Not Detected (Not Detect); Bordetella Pertussis Not Detected (Not Detect); Chlamydophila pneumoniae Not Detected (Not Detect); Coronavirus 229E Not Detected (Not Detect); Coronavirus HKU1 Not Detected (Not Detect); Coronavirus NL63 Not Detected (Not Detect); Coronavirus OC43 Not Detected (Not Detect); Human Metapneumovirus Not Detected (Not Detect); Human Rhinovirus/Enterovirus Not Detected (Not Detect); Influenza A Subtype 2009 H1 Not Detected (Not Detect); Influenza A Untypeable Not Detected (Not Detect); Influenza B Not Detected (Not Detect); Mycoplasma pneumoniae Not Detected (Not Detect); Parainfluenza Virus 1 Not Detected (Not Detect); Parainfluenza Virus 2 Not Detected (Not Detect); Parainfluenza Virus 3 Not Detected (Not Detect); Parainfluenza Virus 4 Not Detected (Not Detect); Respiratory Syncytial Virus Not Detected (Not Detect)
[2019-08-16] MEDS: Insulin DETEMIR 100 UNIT/ML X5UNITS SQ SCH (21:17)
[2019-08-16] MEDS: Apixaban 5 MG TABLET PO SCH (21:17)
[2019-08-17 01:58] LABS: Basophils % 0.4 %; Eosinophils # 0.1 K/mcL (0.0-0.6); Eosinophils % 1.1 %; Hematocrit 31.9 % (37.5-50.1); Hemoglobin 9.6 g/dL (12.9-16.9); Immature Granulocytes % 0.5 % (0-4); Lymphocytes # 1.1 K/mcL (0.6-4.6); Lymphocytes % 11.1 %; Mean Corpuscular HGB Conc 30.1 g/dL (31.6-35.5); Mean Corpuscular Hemoglobin 23.4 pg (28.0-33.3); Mean Corpuscular Volume 77.8 fL (83.0-100.0); Mean Platelet Volume 9.9 fL (9.4-12.4); Monocytes # 0.6 K/mcL (0.0-1.3); Monocytes % 5.6 %; Neutrophils # 8.1 K/mcL (1.6-8.9); Platelet Count 218 K/mcL (140-400); Red Cell Distribution Width 20.5 % (11.5-14.5); Segmented Neutrophils % 81.3 %; White Blood Count 9.9 K/mcL (4.3-11.1)
[2019-08-17 02:16] LABS: Calcium 8.7 mg/dL (8.6-10.3); Magnesium 2.3 mg/dL (1.6-2.6); Potassium 4.2 mEq/L (3.5-5.1)
[2019-08-17] MEDS: Ondansetron 4 MG/2 ML VIAL IVP PRN (06:00)
[2019-08-17] MEDS: cefTRIAXone 1,000 MG in Water for inj. (sterile) 10 ML IVP SCH (09:19)
[2019-08-17] MEDS: Azithromycin 500 MG in 0.9 % Sodium Chloride 250 ML IVPB SCH (09:22)
[2019-08-17] MEDS: Apixaban 5 MG TABLET PO SCH ×2 (09:25→21:20)
[2019-08-17] MEDS: Insulin LISPRO 300 UNITS/3 ML VIAL SQ SCH ×4 (09:27→21:22)
[2019-08-17] MEDS: Ipratropium/Albuterol Neb 3 ML IH SCH ×3 (10:29→22:39)
[2019-08-17] MEDS: Budesonide/Formoterol 80/4.5 1 PUFF INH IH SCH ×2 (10:29→22:39)
[2019-08-17] MEDS ORDERED: Sodium Ferric Gluconat/Sucrose 125 MG in 0.9 % Sodium Chloride 100 ML IVPB ONE (10:58)
[2019-08-17] MEDS: Ranolazine 500 MG TAB.ER.12H PO SCH (21:20)
[2019-08-17] MEDS: Magnesium Oxide 400 MG TABLET PO SCH (21:20)
[2019-08-17] MEDS: Insulin DETEMIR 100 UNIT/ML X5UNITS SQ SCH (21:21)
[2019-08-18] MEDS: Ipratropium/Albuterol Neb 3 ML IH SCH ×4 (03:36→22:04)
[2019-08-18 05:42] LABS: Basophils % 0.4 %; Eosinophils # 0.1 K/mcL (0.0-0.6); Eosinophils % 1.3 %; Hematocrit 32.1 % (37.5-50.1); Hemoglobin 9.5 g/dL (12.9-16.9); Immature Granulocytes % 0.5 % (0-4); Lymphocytes # 0.9 K/mcL (0.6-4.6); Lymphocytes % 9.3 %; Mean Corpuscular HGB Conc 29.6 g/dL (31.6-35.5); Mean Corpuscular Hemoglobin 23.1 pg (28.0-33.3); Mean Corpuscular Volume 78.1 fL (83.0-100.0); Mean Platelet Volume 9.4 fL (9.4-12.4); Monocytes # 0.6 K/mcL (0.0-1.3); Monocytes % 6.6 %; Neutrophils # 7.6 K/mcL (1.6-8.9); Platelet Count 219 K/mcL (140-400); Red Blood Count 4.11 M/mcL (4.19-5.50); Red Cell Distribution Width 20.3 % (11.5-14.5); Segmented Neutrophils % 81.9 %; White Blood Count 9.3 K/mcL (4.3-11.1)
[2019-08-18 06:02] LABS: BUN/Creatinine Ratio 15 (6-26); Blood Urea Nitrogen 20 mg/dL (8-23); Calcium 8.9 mg/dL (8.6-10.3); Carbon Dioxide 26 mEq/L (23-29); Chloride 99 mEq/L (98-107); Glucose 189 mg/dL (70-105); Osmolality,Calculated 286 (280-300); Potassium 4.4 mEq/L (3.5-5.1); Sodium 134 mEq/L (136-145); eGFR For African Americans > 60 (> 60); eGFR For Non-African Americans 50 (> 60)
[2019-08-18] MEDS: Insulin LISPRO 300 UNITS/3 ML VIAL SQ SCH ×4 (08:00→17:53)
[2019-08-18] MEDS: BuPROPion XL (24 HR) 150 MG TABLET PO SCH (08:37)
[2019-08-18] MEDS: Loratadine 10 MG TABLET PO SCH (08:37)
[2019-08-18] MEDS: Ranolazine 500 MG TAB.ER.12H PO SCH ×2 (08:37→20:26)
[2019-08-18] MEDS: Azithromycin 500 MG in 0.9 % Sodium Chloride 250 ML IVPB SCH (08:37)
[2019-08-18] MEDS: Cholecalciferol (D-3) 1,000 UNIT (25MCG) TABLET PO SCH (08:37)
[2019-08-18] MEDS: Apixaban 5 MG TABLET PO SCH ×2 (08:37→20:26)
[2019-08-18] MEDS: Magnesium Oxide 400 MG TABLET PO SCH ×2 (08:38→20:26)
[2019-08-18] MEDS: cefTRIAXone 1,000 MG in Water for inj. (sterile) 10 ML IVP SCH (08:38)
[2019-08-18] MEDS: Budesonide/Formoterol 80/4.5 1 PUFF INH IH SCH ×2 (09:57→22:04)
[2019-08-18] MEDS: Sodium Ferric Gluconat/Sucrose 125 MG in 0.9 % Sodium Chloride 100 ML IVPB SCH (11:59)
[2019-08-18] MEDS: Insulin DETEMIR 100 UNIT/ML X5UNITS SQ SCH (20:26)
[2019-08-19] MEDS: Ipratropium/Albuterol Neb 3 ML IH SCH ×4 (03:55→21:59)
[2019-08-19] MEDS: cefTRIAXone 1,000 MG in Water for inj. (sterile) 10 ML IVP SCH (07:58)
[2019-08-19] MEDS: Azithromycin 500 MG in 0.9 % Sodium Chloride 250 ML IVPB SCH (07:59)
[2019-08-19] MEDS: BuPROPion XL (24 HR) 150 MG TABLET PO SCH (07:59)
[2019-08-19] MEDS: Cholecalciferol (D-3) 1,000 UNIT (25MCG) TABLET PO SCH (07:59)
[2019-08-19] MEDS: Loratadine 10 MG TABLET PO SCH (07:59)
[2019-08-19] MEDS: Torsemide 20 MG TABLET PO SCH (08:00)
[2019-08-19] MEDS: Ranolazine 500 MG TAB.ER.12H PO SCH ×2 (08:00→21:31)
[2019-08-19] MEDS: Apixaban 5 MG TABLET PO SCH ×2 (08:00→21:30)
[2019-08-19] MEDS: Magnesium Oxide 400 MG TABLET PO SCH ×2 (08:00→21:31)
[2019-08-19] MEDS: Insulin LISPRO 300 UNITS/3 ML VIAL SQ SCH ×4 (08:07→21:53)
[2019-08-19] MEDS: Budesonide/Formoterol 80/4.5 1 PUFF INH IH SCH ×2 (10:50→21:59)
[2019-08-19 19:26] LABS: Acinetobacter baumannii by PCR Not Detected (Not Detect); Candida albicans by PCR Not Detected (Not Detect); Candida glabrata by PCR Not Detected (Not Detect); Candida krusei by PCR Not Detected (Not Detect); Candida parapsilosis by PCR Not Detected (Not Detect); Candida tropicalis by PCR Not Detected (Not Detect); Enterobacter cloacae Cmplx PCR Not Detected (Not Detect); Enterobacteriaceae by PCR Not Detected (Not Detect); Enterococcus by PCR Not Detected (Not Detect); Escherichia coli by PCR Not Detected (Not Detect); Klebsiella oxytoca by PCR Not Detected (Not Detect); Klebsiella pneumoniae by PCR Not Detected (Not Detect); Proteus by PCR Not Detected (Not Detect); Pseudomonas aeruginosa by PCR Not Detected (Not Detect); Serratia marcescens by PCR Not Detected (Not Detect); Staphylococcus aureus by PCR Not Detected (Not Detect); Staphylococcus by PCR Not Detected (Not Detect); Streptococcus agalactiae(B)PCR Not Detected (Not Detect); Streptococcus by PCR Not Detected (Not Detect); Streptococcus pneumoniae PCR Not Detected (Not Detect); Streptococcus pyogenes (A) PCR Not Detected (Not Detect); blaKPC Carbapenem-Resist Gene Not Detected (Not Detect); mecA Methicillin-Resist Gene Not Detected (Not Detect); vanA/B Vancomycin-Resist Genes Not Detected (Not Detect)
[2019-08-19] MEDS: Insulin DETEMIR 100 UNIT/ML X5UNITS SQ SCH (21:51)
[2019-08-20] MEDS: Ipratropium/Albuterol Neb 3 ML IH SCH ×4 (03:59→21:50)
[2019-08-20 04:41] LABS: Basophils % 0.4 %; Eosinophils # 0.2 K/mcL (0.0-0.6); Eosinophils % 2.4 %; Hematocrit 31.2 % (37.5-50.1); Hemoglobin 9.3 g/dL (12.9-16.9); Immature Granulocytes % 0.2 % (0-4); Lymphocytes # 0.8 K/mcL (0.6-4.6); Mean Corpuscular HGB Conc 29.8 g/dL (31.6-35.5); Mean Corpuscular Hemoglobin 23.6 pg (28.0-33.3); Mean Corpuscular Volume 79.2 fL (83.0-100.0); Mean Platelet Volume 9.7 fL (9.4-12.4); Monocytes # 0.5 K/mcL (0.0-1.3); Monocytes % 6.4 %; Neutrophils # 6.5 K/mcL (1.6-8.9); Platelet Count 206 K/mcL (140-400); Red Blood Count 3.94 M/mcL (4.19-5.50); Segmented Neutrophils % 80.6 %; White Blood Count 8.1 K/mcL (4.3-11.1)
[2019-08-20 04:55] LABS: Calcium 8.7 mg/dL (8.6-10.3); Potassium 4.3 mEq/L (3.5-5.1)
[2019-08-20] MEDS: BuPROPion XL (24 HR) 150 MG TABLET PO SCH (08:34)
[2019-08-20] MEDS: Apixaban 5 MG TABLET PO SCH ×2 (08:34→21:25)
[2019-08-20] MEDS: Ranolazine 500 MG TAB.ER.12H PO SCH ×2 (08:34→21:25)
[2019-08-20] MEDS: Cholecalciferol (D-3) 1,000 UNIT (25MCG) TABLET PO SCH (08:34)
[2019-08-20] MEDS: Magnesium Oxide 400 MG TABLET PO SCH ×2 (08:35→21:25)
[2019-08-20] MEDS: Loratadine 10 MG TABLET PO SCH (08:35)
[2019-08-20] MEDS: cefTRIAXone 1,000 MG in Water for inj. (sterile) 10 ML IVP SCH (08:35)
[2019-08-20] MEDS: Torsemide 20 MG TABLET PO SCH (08:35)
[2019-08-20] MEDS: Azithromycin 500 MG in 0.9 % Sodium Chloride 250 ML IVPB SCH (08:36)
[2019-08-20] MEDS: Insulin LISPRO 300 UNITS/3 ML VIAL SQ SCH ×4 (08:39→21:27)
[2019-08-20] MEDS ORDERED: Bisacodyl 10 MG RECTAL SUPPOSITORY RC PRN (10:16)
[2019-08-20] MEDS: Budesonide/Formoterol 80/4.5 1 PUFF INH IH SCH ×2 (10:33→21:50)
[2019-08-20] MEDS: Insulin DETEMIR 100 UNIT/ML X5UNITS SQ SCH (21:27)
[2019-08-21] MEDS: Ipratropium/Albuterol Neb 3 ML IH SCH ×3 (03:40→15:17)
[2019-08-21] MEDS: Sodium Ferric Gluconat/Sucrose 125 MG in 0.9 % Sodium Chloride 100 ML IVPB SCH (07:05)
[2019-08-21] MEDS: cefTRIAXone 1,000 MG in Water for inj. (sterile) 10 ML IVP SCH (08:32)
[2019-08-21] MEDS: Azithromycin 500 MG in 0.9 % Sodium Chloride 250 ML IVPB SCH (08:33)
[2019-08-21] MEDS: Insulin LISPRO 300 UNITS/3 ML VIAL SQ SCH ×2 (08:41→12:48)
[2019-08-21] MEDS: Ranolazine 500 MG TAB.ER.12H PO SCH (08:41)
[2019-08-21] MEDS: BuPROPion XL (24 HR) 150 MG TABLET PO SCH (08:42)
[2019-08-21] MEDS: Magnesium Oxide 400 MG TABLET PO SCH (08:43)
[2019-08-21] MEDS: Torsemide 20 MG TABLET PO SCH (08:43)
[2019-08-21] MEDS: Cholecalciferol (D-3) 1,000 UNIT (25MCG) TABLET PO SCH (08:43)
[2019-08-21] MEDS: Loratadine 10 MG TABLET PO SCH (08:43)
[2019-08-21] MEDS: Apixaban 5 MG TABLET PO SCH (08:43)
[2019-08-21] MEDS ORDERED: Milk and Molasses Enema 200 ML RC ONE (09:10)
[2019-08-21] MEDS: Budesonide/Formoterol 80/4.5 1 PUFF INH IH SCH (10:57)
[2019-08-21 16:10] VITALS: BP 132/64
== END 2019-08-21 17:35 ==
LOC: 2NENU 13:52 → EMEROOARM 13:52 → SUATTDRO 16:08 → 2NENU 16:37
PROVIDERS: ADMIT Internal Medicine; ATTEND Internal Medicine

== ENCOUNTER 2019-11-20 08:02 | Inpatient (IN) ==
[2019-11-20] MEDS ORDERED: Ondansetron 4 MG/2 ML VIAL IVP ONE (08:19)
[2019-11-20 08:46] LABS: Basophils % 0.3 %; Eosinophils # 0.1 K/mcL (0.0-0.6); Eosinophils % 0.6 %; Hematocrit 39.8 % (37.5-50.1); Hemoglobin 12.7 g/dL (12.9-16.9); Immature Granulocytes % 0.5 % (0-4); Lymphocytes # 0.7 K/mcL (0.6-4.6); Mean Corpuscular HGB Conc 31.9 g/dL (31.6-35.5); Mean Corpuscular Hemoglobin 25.1 pg (28.0-33.3); Mean Corpuscular Volume 78.8 fL (83.0-100.0); Mean Platelet Volume 9.1 fL (9.4-12.4); Monocytes # 0.6 K/mcL (0.0-1.3); Monocytes % 4.7 %; Neutrophils # 11.8 K/mcL (1.6-8.9); Platelet Count 214 K/mcL (140-400); Red Blood Count 5.05 M/mcL (4.19-5.50); Red Cell Distribution Width 19.6 % (11.5-14.5); Segmented Neutrophils % 88.9 %; White Blood Count 13.3 K/mcL (4.3-11.1)
[2019-11-20 08:56] LABS: INR 1.6; Prothrombin Time 18.3 Seconds (9.4-12.1)
[2019-11-20 09:02] LABS: Bilirubin,Urine Negative (Negative); Blood,Urine Negative (Negative); Clarity,Urine Clear (Clear); Color,Urine Yellow (Yellow); Glucose,Urine (UA) Normal (Normal); Ketones,Urine Negative (Negative); Leukocyte Esterase,Urine Negative (Negative); Nitrite,Urine Negative (Negative); Protein,Urine Negative (Neg-Trace); Specific Gravity,Urine 1.014 (1.010-1.025); Urobilinogen,Urine Normal (Normal)
[2019-11-20 09:21] LABS: Albumin 4.4 g/dL (3.5-5.7); Albumin/Globulin Ratio 1.4 (1.1-2.2); Bilirubin,Direct 0.2 mg/dL (0.0-0.2); Bilirubin,Indirect 0.6 mg/dL (0.0-1.0); Bilirubin,Total 0.8 mg/dL (0.3-1.0); Calcium 9.4 mg/dL (8.6-10.3); Globulin 3.1 g/dL (2.4-3.5); Potassium 4.6 mEq/L (3.5-5.1); Total Protein 7.5 g/dL (6.4-8.9); Troponin I 0.04 ng/mL (< 0.04)
[2019-11-20] MEDS ORDERED: cefTRIAXone 1,000 MG in 0.9 % Sodium Chloride Mini Bag 100 ML IVPB ONE (09:38)
[2019-11-20] MEDS ORDERED: Azithromycin 500 MG in 0.9 % Sodium Chloride 250 ML IVPB ONE (09:38)
[2019-11-20] MEDS ORDERED: Naloxone 0.4 MG/ML INJ IVP PRN (10:01)
[2019-11-20] MEDS ORDERED: Acetaminophen 325 MG TABLET PO PRN (10:01)
[2019-11-20] MEDS ORDERED: Dextrose Gel 15 GM/37.5 ML TUBE PO PRN ×2 (10:33)
[2019-11-20] MEDS ORDERED: D5% in Water 1,000 ML IVC PRN (10:33)
[2019-11-20] MEDS ORDERED: *HR* Dextrose 50 % in Water (Syg) 50 ML SYRINGE IVP PRN (10:33)
[2019-11-20] MEDS ORDERED: Azithromycin 500 MG in 0.9 % Sodium Chloride 250 ML IVPB SCH (11:00)
[2019-11-20] MEDS ORDERED: Piperacillin/Tazobactam 3.375 GM in 0.9 % Sodium Chloride Mini Bag 100 ML IVPB SCH (13:00)
[2019-11-20] MEDS: Insulin LISPRO 300 UNITS/3 ML VIAL SQ SCH ×2 (13:24→17:08)
[2019-11-20] MEDS: Levalbuterol Neb 0.63 MG/3 ML IH SCH ×2 (15:44→21:37)
[2019-11-20] MEDS: Piperacillin/Tazobactam 3.375 GM in 0.9 % Sodium Chloride Mini Bag 100 ML IVPB SCH (16:54)
[2019-11-20] MEDS ORDERED: Apixaban 5 MG TABLET PO SCH (21:00)
[2019-11-20] MEDS: Budesonide/Formoterol 80/4.5 1 PUFF INH IH SCH (21:36)
[2019-11-20] MEDS: Magnesium Oxide 400 MG TABLET PO SCH (21:50)
[2019-11-20] MEDS: Ranolazine 500 MG TAB.ER.12H PO SCH (21:50)
[2019-11-20] MEDS: Insulin DETEMIR 100 UNIT/ML X5UNITS SQ SCH (21:54)
[2019-11-21 00:57] LABS: Basophils % 0.4 %; Eosinophils # 0.1 K/mcL (0.0-0.6); Hematocrit 36.5 % (37.5-50.1); Hemoglobin 11.3 g/dL (12.9-16.9); Immature Granulocytes % 0.4 % (0-4); Lymphocytes # 1.1 K/mcL (0.6-4.6); Lymphocytes % 10.6 %; Mean Corpuscular Hemoglobin 25.5 pg (28.0-33.3); Mean Corpuscular Volume 82.2 fL (83.0-100.0); Mean Platelet Volume 9.6 fL (9.4-12.4); Monocytes # 0.7 K/mcL (0.0-1.3); Monocytes % 6.4 %; Neutrophils # 8.6 K/mcL (1.6-8.9); Platelet Count 194 K/mcL (140-400); Red Blood Count 4.44 M/mcL (4.19-5.50); Red Cell Distribution Width 19.5 % (11.5-14.5); Segmented Neutrophils % 81.2 %; White Blood Count 10.5 K/mcL (4.3-11.1)
[2019-11-21] MEDS: Piperacillin/Tazobactam 3.375 GM in 0.9 % Sodium Chloride Mini Bag 100 ML IVPB SCH ×3 (01:06→17:19)
[2019-11-21 01:14] LABS: Calcium 8.8 mg/dL (8.6-10.3); Phosphorous 3.6 mg/dL (2.7-4.5)
[2019-11-21] MEDS: Levalbuterol Neb 0.63 MG/3 ML IH SCH ×4 (04:07→22:15)
[2019-11-21] MEDS: Levothyroxine 25 MCG TABLET PO SCH (05:32)
[2019-11-21] MEDS ORDERED: levoFLOXacin 750 MG TABLET PO SCH (09:00)
[2019-11-21] MEDS: Insulin LISPRO 300 UNITS/3 ML VIAL SQ SCH ×3 (09:55→17:20)
[2019-11-21] MEDS: Cholecalciferol (D-3) 1,000 UNIT (25MCG) TABLET PO SCH (09:57)
[2019-11-21] MEDS: BuPROPion XL (24 HR) 150 MG TABLET PO SCH (09:57)
[2019-11-21] MEDS: Torsemide 20 MG TABLET PO SCH (09:58)
[2019-11-21] MEDS: Ranolazine 500 MG TAB.ER.12H PO SCH ×2 (09:59→19:54)
[2019-11-21] MEDS: FLUoxetine 20 MG CAPSULE PO SCH (09:59)
[2019-11-21] MEDS: Magnesium Oxide 400 MG TABLET PO SCH ×2 (09:59→19:54)
[2019-11-21] MEDS: Cyanocobalamin (B-12) 1,000 MCG TABLET PO SCH (09:59)
[2019-11-21] MEDS: Budesonide/Formoterol 80/4.5 1 PUFF INH IH SCH ×2 (10:27→22:15)
[2019-11-21] MEDS: Tiotropium 18 MCG inhalation IH SCH (10:32)
[2019-11-21] MEDS: MethylPREDNISolone 40 MG/ML VIAL IVP SCH (16:00)
[2019-11-21] MEDS: Aspirin 81 MG TAB.CHEW PO SCH (16:03)
[2019-11-21] MEDS: Insulin DETEMIR 100 UNIT/ML X5UNITS SQ SCH (19:54)
[2019-11-21 21:57] LABS: Adenovirus Not Detected (Not Detect); Bordetella Pertussis Not Detected (Not Detect); Chlamydophila pneumoniae Not Detected (Not Detect); Coronavirus 229E Not Detected (Not Detect); Coronavirus HKU1 Not Detected (Not Detect); Coronavirus NL63 Not Detected (Not Detect); Coronavirus OC43 Not Detected (Not Detect); Human Metapneumovirus Not Detected (Not Detect); Human Rhinovirus/Enterovirus Not Detected (Not Detect); Influenza A Subtype 2009 H1 Not Detected (Not Detect); Influenza B Not Detected (Not Detect); Mycoplasma pneumoniae Not Detected (Not Detect); Parainfluenza Virus 1 Not Detected (Not Detect); Parainfluenza Virus 2 Not Detected (Not Detect); Parainfluenza Virus 3 Not Detected (Not Detect); Parainfluenza Virus 4 Not Detected (Not Detect); Respiratory Syncytial Virus Not Detected (Not Detect)
[2019-11-22] MEDS: MethylPREDNISolone 40 MG/ML VIAL IVP SCH ×3 (00:30→16:20)
[2019-11-22] MEDS: Piperacillin/Tazobactam 3.375 GM in 0.9 % Sodium Chloride Mini Bag 100 ML IVPB SCH ×3 (02:11→16:20)
[2019-11-22] MEDS: Levalbuterol Neb 0.63 MG/3 ML IH SCH ×4 (03:44→22:16)
[2019-11-22] MEDS: Levothyroxine 25 MCG TABLET PO SCH (05:36)
[2019-11-22 05:52] LABS: Hematocrit 37.4 % (37.5-50.1); Hemoglobin 11.8 g/dL (12.9-16.9); Mean Corpuscular HGB Conc 31.6 g/dL (31.6-35.5); Mean Corpuscular Hemoglobin 24.9 pg (28.0-33.3); Mean Corpuscular Volume 78.9 fL (83.0-100.0); Mean Platelet Volume 9.7 fL (9.4-12.4); Platelet Count 190 K/mcL (140-400); Red Blood Count 4.74 M/mcL (4.19-5.50); Red Cell Distribution Width 18.6 % (11.5-14.5); White Blood Count 5.9 K/mcL (4.3-11.1)
[2019-11-22 05:53] LABS: INR 1.3
[2019-11-22 06:19] LABS: Calcium 9.4 mg/dL (8.6-10.3); Potassium 4.7 mEq/L (3.5-5.1)
[2019-11-22] MEDS ORDERED: Aminoglycoside Consult 1 EACH MC ONE (08:33)
[2019-11-22] MEDS: Insulin LISPRO 300 UNITS/3 ML VIAL SQ SCH ×3 (09:20→16:21)
[2019-11-22] MEDS: Tiotropium 18 MCG inhalation IH SCH (10:37)
[2019-11-22] MEDS: Budesonide/Formoterol 80/4.5 1 PUFF INH IH SCH ×2 (10:38→22:16)
[2019-11-22] MEDS: Cholecalciferol (D-3) 1,000 UNIT (25MCG) TABLET PO SCH (12:41)
[2019-11-22] MEDS: Ranolazine 500 MG TAB.ER.12H PO SCH ×2 (12:45→21:10)
[2019-11-22] MEDS: Torsemide 20 MG TABLET PO SCH (12:45)
[2019-11-22] MEDS: Magnesium Oxide 400 MG TABLET PO SCH ×2 (12:46→21:10)
[2019-11-22] MEDS: Cyanocobalamin (B-12) 1,000 MCG TABLET PO SCH (12:46)
[2019-11-22] MEDS: Aspirin 81 MG TAB.CHEW PO SCH (12:46)
[2019-11-22] MEDS: FLUoxetine 20 MG CAPSULE PO SCH (12:47)
[2019-11-22] MEDS: BuPROPion XL (24 HR) 150 MG TABLET PO SCH (12:49)
[2019-11-22] MEDS ORDERED: Insulin DETEMIR 100 UNIT/ML X5UNITS SQ SCH (21:00)
[2019-11-23] MEDS: MethylPREDNISolone 40 MG/ML VIAL IVP SCH ×2 (00:39→12:15)
[2019-11-23] MEDS: Piperacillin/Tazobactam 3.375 GM in 0.9 % Sodium Chloride Mini Bag 100 ML IVPB SCH ×2 (00:42→08:24)
[2019-11-23 01:04] LABS: Hematocrit 35.2 % (37.5-50.1); Hemoglobin 10.8 g/dL (12.9-16.9); Mean Corpuscular HGB Conc 30.7 g/dL (31.6-35.5); Mean Corpuscular Volume 81.5 fL (83.0-100.0); Mean Platelet Volume 10.1 fL (9.4-12.4); Platelet Count 171 K/mcL (140-400); Red Blood Count 4.32 M/mcL (4.19-5.50); Red Cell Distribution Width 18.5 % (11.5-14.5); White Blood Count 7.7 K/mcL (4.3-11.1)
[2019-11-23 01:24] LABS: BUN/Creatinine Ratio 21 (6-26); Blood Urea Nitrogen 28 mg/dL (8-23); Calcium 8.8 mg/dL (8.6-10.3); Carbon Dioxide 23 mEq/L (23-29); Chloride 99 mEq/L (98-107); Glucose 328 mg/dL (70-105); Osmolality,Calculated 288 (280-300); Potassium 4.7 mEq/L (3.5-5.1); Sodium 130 mEq/L (136-145); eGFR For African Americans > 60 (> 60); eGFR For Non-African Americans 52 (> 60)
[2019-11-23] MEDS: Levalbuterol Neb 0.63 MG/3 ML IH SCH ×2 (03:47→09:43)
[2019-11-23] MEDS: Levothyroxine 25 MCG TABLET PO SCH (05:13)
[2019-11-23] MEDS: Insulin LISPRO 300 UNITS/3 ML VIAL SQ SCH ×2 (08:23→12:23)
[2019-11-23] MEDS ORDERED: Albuterol 2.5 MG/3 ML NEBULIZER IH ONE (09:19)
[2019-11-23] MEDS ORDERED: Albuterol 2.5 MG/3 ML NEBULIZER ONE (09:20)
[2019-11-23] MEDS ORDERED: *HR* Propofol 200 MG/20 ML VIAL IVP ONE (09:39)
[2019-11-23] MEDS ORDERED: *HR* FentaNYL (PF) 100 MCG/2 ML VIAL ONE (09:39)
[2019-11-23] MEDS ORDERED: Ondansetron 4 MG/2 ML VIAL ONE (09:40)
[2019-11-23] MEDS ORDERED: Dexamethasone 4 MG/ML VIAL ONE (09:40)
[2019-11-23] MEDS ORDERED: Lidocaine -MPF 2% 2 ML VIAL ONE (09:40)
[2019-11-23] MEDS ORDERED: Lidocaine -MPF 4% 5 ML AMPUL ONE (09:40)
[2019-11-23] MEDS ORDERED: *HR* Succinylcholine 200 MG/10 ML VIAL IVP ONE (09:42)
[2019-11-23] MEDS: Budesonide/Formoterol 80/4.5 1 PUFF INH IH SCH (09:43)
[2019-11-23] MEDS: Tiotropium 18 MCG inhalation IH SCH (09:43)
[2019-11-23 11:35] VITALS: BP 146/95
[2019-11-23] MEDS: Cholecalciferol (D-3) 1,000 UNIT (25MCG) TABLET PO SCH (12:14)
[2019-11-23] MEDS: Aspirin 81 MG TAB.CHEW PO SCH (12:14)
[2019-11-23] MEDS: BuPROPion XL (24 HR) 150 MG TABLET PO SCH (12:14)
[2019-11-23] MEDS: Torsemide 20 MG TABLET PO SCH (12:14)
[2019-11-23] MEDS: Magnesium Oxide 400 MG TABLET PO SCH (12:15)
[2019-11-23] MEDS: FLUoxetine 20 MG CAPSULE PO SCH (12:15)
[2019-11-23] MEDS: Cyanocobalamin (B-12) 1,000 MCG TABLET PO SCH (12:15)
[2019-11-23] MEDS: Ranolazine 500 MG TAB.ER.12H PO SCH (12:15)
[2019-11-23 19:10] LABS: Appearance of Body Fluid Slightly Hazy (Clear); Volume of Body Fluid 24 mL
[2019-11-23 19:13] LABS: Appearance of Body Fluid Cloudy (Clear); Volume of Body Fluid 14 mL
[2019-11-23] MEDS ORDERED: Insulin DETEMIR 100 UNIT/ML X5UNITS SQ SCH (21:00)
== END 2019-11-23 14:32 | disposition home health service (06) | DRG 871 ==
LOC: EMEROOARM 08:02 → CDU 08:02 → SUATTDRO 10:26 → CDU 12:18 → 3BNU 11-21 16:06
PROVIDERS: ADMIT Internal Medicine; ATTEND Student in an Organized Health Care Education/Training Program
PROC: ENDOBRF (2019-11-23 18:35)

== ENCOUNTER 2020-03-03 04:00 | Observation (INO) ==
[2020-03-03] MEDS ORDERED: Aminoglycoside Consult 1 EACH MC ONE (05:27)
[2020-03-03] MEDS ORDERED: Naloxone 0.4 MG/ML INJ IVP PRN (06:43)
[2020-03-03] MEDS ORDERED: Ipratropium/Albuterol Neb 3 ML IH PRN (06:45)
[2020-03-03] MEDS ORDERED: Loratadine 10 MG TABLET PO PRN (06:45)
[2020-03-03] MEDS ORDERED: Dextrose Gel 15 GM/37.5 ML TUBE PO PRN ×2 (07:18)
[2020-03-03] MEDS ORDERED: *HR* Dextrose 50 % in Water (Syg) 50 ML SYRINGE IVP PRN (07:18)
[2020-03-03] MEDS ORDERED: D5% in Water 1,000 ML IVC PRN (07:18)
[2020-03-03] MEDS: Ranolazine 500 MG TAB.ER.12H PO SCH ×2 (08:56→22:38)
[2020-03-03] MEDS: BuPROPion XL (24 HR) 150 MG TABLET PO SCH (08:57)
[2020-03-03] MEDS: Magnesium Oxide 400 MG TABLET PO SCH ×2 (08:57→22:38)
[2020-03-03] MEDS: FLUoxetine 20 MG CAPSULE PO SCH (08:57)
[2020-03-03] MEDS: Levothyroxine 25 MCG TABLET PO SCH (08:57)
[2020-03-03] MEDS: Apixaban 5 MG TABLET PO SCH ×2 (08:57→22:38)
[2020-03-03] MEDS: Doxycycline 100 MG in 0.9 % Sodium Chloride Mini Bag 100 ML IVPB SCH ×2 (08:58→17:08)
[2020-03-03] MEDS: Insulin LISPRO 300 UNITS/3 ML VIAL SQ SCH ×4 (08:58→22:35)
[2020-03-03] MEDS ORDERED: Doxycycline 200 MG in 0.9 % Sodium Chloride 250 ML IVPB SCH (09:00)
[2020-03-03] MEDS ORDERED: Furosemide 20 MG/2 ML VIAL IVP SCH (09:00)
[2020-03-03] MEDS: Piperacillin/Tazobactam 3.375 GM in 0.9 % Sodium Chloride Mini Bag 100 ML IVPB SCH ×2 (10:16→17:08)
[2020-03-03] MEDS: Furosemide 40 MG/4 ML VIAL IVP SCH (10:16)
[2020-03-03] MEDS: Budesonide/Formoterol 80/4.5 1 PUFF INH IH SCH ×2 (10:17→19:59)
[2020-03-03] MEDS: Tiotropium 18 MCG inhalation IH SCH (10:17)
[2020-03-03] MEDS: Folic Acid 1 MG TABLET PO SCH (22:38)
[2020-03-04 02:38] LABS: Hematocrit 34.4 % (37.5-50.1); Hemoglobin 10.3 g/dL (12.9-16.9); Mean Corpuscular HGB Conc 29.9 g/dL (31.6-35.5); Mean Corpuscular Hemoglobin 25.1 pg (28.0-33.3); Mean Corpuscular Volume 83.7 fL (83.0-100.0); Mean Platelet Volume 9.7 fL (9.4-12.4); Platelet Count 164 K/mcL (140-400); Red Blood Count 4.11 M/mcL (4.19-5.50); Red Cell Distribution Width 17.9 % (11.5-14.5); White Blood Count 10.4 K/mcL (4.3-11.1)
[2020-03-04 02:58] LABS: BUN/Creatinine Ratio 16 (6-26); Blood Urea Nitrogen 19 mg/dL (8-23); Calcium 8.6 mg/dL (8.6-10.3); Carbon Dioxide 30 mEq/L (23-29); Chloride 102 mEq/L (98-107); Glucose 115 mg/dL (70-105); Magnesium 1.9 mg/dL (1.6-2.6); Osmolality,Calculated 289 (280-300); Potassium 4.4 mEq/L (3.5-5.1); Sodium 138 mEq/L (136-145); eGFR For African Americans > 60 (> 60); eGFR For Non-African Americans 59 (> 60)
[2020-03-04] MEDS: Levothyroxine 25 MCG TABLET PO SCH (05:34)
[2020-03-04] MEDS: Insulin LISPRO 300 UNITS/3 ML VIAL SQ SCH ×4 (08:21→21:03)
[2020-03-04] MEDS: FLUoxetine 20 MG CAPSULE PO SCH (08:54)
[2020-03-04] MEDS: Apixaban 5 MG TABLET PO SCH ×2 (08:54→21:03)
[2020-03-04] MEDS: BuPROPion XL (24 HR) 150 MG TABLET PO SCH (08:55)
[2020-03-04] MEDS: Magnesium Oxide 400 MG TABLET PO SCH ×2 (08:55→21:03)
[2020-03-04] MEDS: Ranolazine 500 MG TAB.ER.12H PO SCH ×2 (08:56→21:02)
[2020-03-04] MEDS: Furosemide 40 MG/4 ML VIAL IVP SCH (08:57)
[2020-03-04] MEDS ORDERED: Saline Nasal Spray 44 ML BOTTLE NS ONE (09:50)
[2020-03-04] MEDS: Ipratropium/Albuterol Neb 3 ML IH SCH ×4 (11:16→19:36)
[2020-03-04] MEDS: Budesonide/Formoterol 80/4.5 1 PUFF INH IH SCH ×2 (11:20→19:35)
[2020-03-04] MEDS: Tiotropium 18 MCG inhalation IH SCH (11:21)
[2020-03-04] MEDS: MethylPREDNISolone 40 MG/ML VIAL IVP SCH ×2 (11:30→16:41)
[2020-03-04] MEDS: Folic Acid 1 MG TABLET PO SCH (21:03)
[2020-03-05] MEDS: Ipratropium/Albuterol Neb 3 ML IH SCH ×7 (00:05→23:33)
[2020-03-05 02:20] LABS: BUN/Creatinine Ratio 20 (6-26); Blood Urea Nitrogen 23 mg/dL (8-23); Calcium 8.7 mg/dL (8.6-10.3); Carbon Dioxide 24 mEq/L (23-29); Chloride 99 mEq/L (98-107); Glucose 354 mg/dL (70-105); Magnesium 1.9 mg/dL (1.6-2.6); Osmolality,Calculated 294 (280-300); Phosphorous 3.5 mg/dL (2.7-4.5); Potassium 4.3 mEq/L (3.5-5.1); Sodium 133 mEq/L (136-145); eGFR For African Americans > 60 (> 60); eGFR For Non-African Americans > 60 (> 60)
[2020-03-05 02:30] LABS: Basophils % 0.2 %; Eosinophils % 0.2 %; Hematocrit 33.4 % (37.5-50.1); Hemoglobin 10.4 g/dL (12.9-16.9); Immature Granulocytes % 0.2 % (0-4); Lymphocytes # 0.4 K/mcL (0.6-4.6); Lymphocytes % 8.1 %; Mean Corpuscular HGB Conc 31.1 g/dL (31.6-35.5); Mean Corpuscular Hemoglobin 25.7 pg (28.0-33.3); Mean Corpuscular Volume 82.7 fL (83.0-100.0); Mean Platelet Volume 10.3 fL (9.4-12.4); Monocytes # 0.1 K/mcL (0.0-1.3); Monocytes % 1.4 %; Neutrophils # 4.6 K/mcL (1.6-8.9); Platelet Count 180 K/mcL (140-400); Red Blood Count 4.04 M/mcL (4.19-5.50); Red Cell Distribution Width 17.2 % (11.5-14.5); Segmented Neutrophils % 89.9 %
[2020-03-05 02:58] LABS: White Blood Count 5.1 K/mcL (4.3-11.1)
[2020-03-05] MEDS: Levothyroxine 25 MCG TABLET PO SCH (05:42)
[2020-03-05] MEDS: MethylPREDNISolone 40 MG/ML VIAL IVP SCH ×2 (05:42→17:02)
[2020-03-05] MEDS: Budesonide/Formoterol 80/4.5 1 PUFF INH IH SCH ×2 (07:42→19:31)
[2020-03-05] MEDS: Tiotropium 18 MCG inhalation IH SCH (07:43)
[2020-03-05] MEDS: BuPROPion XL (24 HR) 150 MG TABLET PO SCH (09:11)
[2020-03-05] MEDS: Apixaban 5 MG TABLET PO SCH ×2 (09:11→21:36)
[2020-03-05] MEDS: Ranolazine 500 MG TAB.ER.12H PO SCH ×2 (09:12→21:35)
[2020-03-05] MEDS: Doxycycline 100 MG CAPSULE PO SCH ×2 (09:12→21:35)
[2020-03-05] MEDS: Magnesium Oxide 400 MG TABLET PO SCH ×2 (09:13→21:35)
[2020-03-05] MEDS: FLUoxetine 20 MG CAPSULE PO SCH (09:13)
[2020-03-05] MEDS: Insulin LISPRO 300 UNITS/3 ML VIAL SQ SCH ×4 (09:13→21:37)
[2020-03-05] MEDS: Furosemide 40 MG/4 ML VIAL IVP SCH (09:13)
[2020-03-05] MEDS ORDERED: Insulin DETEMIR 100 UNIT/ML X5UNITS SQ SCH (21:00)
[2020-03-05] MEDS: Folic Acid 1 MG TABLET PO SCH (21:36)
[2020-03-06 02:50] LABS: Hematocrit 33.6 % (37.5-50.1); Hemoglobin 10.5 g/dL (12.9-16.9); Immature Granulocytes % 0.4 % (0-4); Lymphocytes # 0.5 K/mcL (0.6-4.6); Lymphocytes % 6.2 %; Mean Corpuscular HGB Conc 31.3 g/dL (31.6-35.5); Mean Corpuscular Hemoglobin 25.5 pg (28.0-33.3); Mean Corpuscular Volume 81.6 fL (83.0-100.0); Mean Platelet Volume 9.6 fL (9.4-12.4); Monocytes # 0.4 K/mcL (0.0-1.3); Monocytes % 5.4 %; Neutrophils # 6.7 K/mcL (1.6-8.9); Platelet Count 181 K/mcL (140-400); Red Blood Count 4.12 M/mcL (4.19-5.50); Red Cell Distribution Width 17.2 % (11.5-14.5)
[2020-03-06 02:51] LABS: White Blood Count 7.6 K/mcL (4.3-11.1)
[2020-03-06 03:08] LABS: BUN/Creatinine Ratio 25 (6-26); Blood Urea Nitrogen 30 mg/dL (8-23); Carbon Dioxide 27 mEq/L (23-29); Chloride 99 mEq/L (98-107); Glucose 354 mg/dL (70-105); Magnesium 2.1 mg/dL (1.6-2.6); Osmolality,Calculated 296 (280-300); Phosphorous 3.7 mg/dL (2.7-4.5); Potassium 4.5 mEq/L (3.5-5.1); Sodium 133 mEq/L (136-145); eGFR For African Americans > 60 (> 60); eGFR For Non-African Americans 59 (> 60)
[2020-03-06] MEDS: Ipratropium/Albuterol Neb 3 ML IH SCH ×3 (03:40→11:25)
[2020-03-06] MEDS: Levothyroxine 25 MCG TABLET PO SCH (05:42)
[2020-03-06] MEDS: MethylPREDNISolone 40 MG/ML VIAL IVP SCH (05:42)
[2020-03-06] MEDS: Budesonide/Formoterol 80/4.5 1 PUFF INH IH SCH (07:36)
[2020-03-06] MEDS: Tiotropium 18 MCG inhalation IH SCH (07:38)
[2020-03-06] MEDS: Ranolazine 500 MG TAB.ER.12H PO SCH (07:51)
[2020-03-06] MEDS: Apixaban 5 MG TABLET PO SCH (07:51)
[2020-03-06] MEDS: Insulin LISPRO 300 UNITS/3 ML VIAL SQ SCH ×2 (07:51→11:39)
[2020-03-06] MEDS: FLUoxetine 20 MG CAPSULE PO SCH (07:51)
[2020-03-06] MEDS: Magnesium Oxide 400 MG TABLET PO SCH (07:51)
[2020-03-06] MEDS: Doxycycline 100 MG CAPSULE PO SCH (07:52)
[2020-03-06] MEDS: BuPROPion XL (24 HR) 150 MG TABLET PO SCH (07:52)
[2020-03-06] MEDS ORDERED: polyethylene glycoL 3350 17 GM POWD.PACK PO PRN (08:23)
[2020-03-06] MEDS ORDERED: Torsemide 20 MG TABLET PO SCH (09:00)
[2020-03-06 10:55] VITALS: BP 120/65
[2020-03-06] MEDS ORDERED: predniSONE 20 MG TABLET PO SCH (15:00)
== END 2020-03-06 15:56 | disposition home health service (06) ==
LOC: 2NENU → SUATTDRO 05:26 → 2ANU 21:00
PROVIDERS: ADMIT Internal Medicine; ATTEND Internal Medicine

== ENCOUNTER 2020-04-06 19:12 | Observation (INO) ==
[2020-04-06 19:56] LABS: Hemoglobin 10.5 g/dL (12.9-16.9); Immature Granulocytes % 0.7 % (0-4); Mean Platelet Volume 9.5 fL (9.4-12.4)
[2020-04-06 19:57] LABS: Hematocrit 33.5 % (37.5-50.1); Immature Platelets 2.2 % (1.1-6.1); Mean Corpuscular HGB Conc 31.3 g/dL (31.6-35.5); Mean Corpuscular Hemoglobin 26.2 pg (28.0-33.3); Mean Corpuscular Volume 83.5 fL (83.0-100.0); Platelet Count 213 K/mcL (140-400); Red Blood Count 4.01 M/mcL (4.19-5.50); Red Cell Distribution Width 18.6 % (11.5-14.5); Segmented Neutrophils % 74.6 %; White Blood Count 6.9 K/mcL (4.3-11.1)
[2020-04-06 19:58] LABS: Basophils % 0.4 %; Eosinophils # 0.1 K/mcL (0.0-0.6); Lymphocytes % 13.7 %; Monocytes # 0.6 K/mcL (0.0-1.3); Monocytes % 8.6 %; Nucleated Red Blood Cells 0.3 /100 WBC (0)
[2020-04-06] MEDS ORDERED: Aspirin 81 MG TAB.CHEW PO ONE (19:59)
[2020-04-06 20:06] LABS: INR 1.6; Prothrombin Time 18.5 Seconds (9.4-12.1)
[2020-04-06 20:08] LABS: Activated Partial Thrombo Time 34.3 Seconds (26.0-36.0)
[2020-04-06 20:13] LABS: Bilirubin,Urine Negative (Negative); Blood,Urine Negative (Negative); Clarity,Urine Clear (Clear); Color,Urine Yellow (Yellow); Glucose,Urine (UA) Normal (Normal); Ketones,Urine Negative (Negative); Leukocyte Esterase,Urine Negative (Negative); Nitrite,Urine Negative (Negative); Protein,Urine Negative (Neg-Trace); Specific Gravity,Urine 1.013 (1.010-1.025); Urobilinogen,Urine Normal (Normal)
[2020-04-06 20:22] LABS: Neutrophils # 5.2 K/mcL (1.6-8.9)
[2020-04-06 20:23] LABS: Anisocytosis 1+ (Not Present); Large Platelets Present (Not Present); Platelet Estimate Normal (Normal)
[2020-04-06 20:25] LABS: Alanine Aminotransferase 13 Units/L (7-52); Albumin/Globulin Ratio 1.5 (1.1-2.2); Alkaline Phosphatase 44 Units/L (34-104); Aspartate Amino Transferase 17 Units/L (13-39); BUN/Creatinine Ratio 13 (6-26); Bilirubin,Total 0.6 mg/dL (0.3-1.0); Blood Urea Nitrogen 18 mg/dL (8-23); Calcium 9.1 mg/dL (8.6-10.3); Carbon Dioxide 24 mEq/L (23-29); Chloride 100 mEq/L (98-107); Globulin 2.6 g/dL (2.4-3.5); Glucose 99 mg/dL (70-105); Osmolality,Calculated 280 (280-300); Potassium 4.3 mEq/L (3.5-5.1); Sodium 134 mEq/L (136-145); Total Protein 6.6 g/dL (6.4-8.9); Troponin I 0.04 ng/mL (< 0.04); eGFR For African Americans > 60 (> 60); eGFR For Non-African Americans 50 (> 60)
[2020-04-06] MEDS ORDERED: Nitroglycerin 0.4 MG TAB.SUBL SL PRN (21:12)
[2020-04-06] MEDS ORDERED: Furosemide 20 MG/2 ML VIAL IVP ONE (21:34)
[2020-04-06] MEDS ORDERED: Furosemide 40 MG/4 ML VIAL IVP ONE (21:35)
[2020-04-06] MEDS ORDERED: Naloxone 0.4 MG/ML INJ IVP PRN (22:00)
[2020-04-06] MEDS ORDERED: Ondansetron ODT 4 MG TAB.RAPDIS SL PRN (22:00)
[2020-04-06] MEDS ORDERED: 0.9 % Sodium Chloride 1,000 ML IVC SCH (22:00)
[2020-04-06] MEDS ORDERED: Dextrose Gel 15 GM/37.5 ML TUBE PO PRN ×2 (22:08)
[2020-04-06] MEDS ORDERED: D5% in Water 1,000 ML IVC PRN (22:08)
[2020-04-06] MEDS ORDERED: *HR* Dextrose 50 % in Water (Syg) 50 ML SYRINGE IVP PRN (22:08)
[2020-04-06] MEDS: Apixaban 5 MG TABLET PO SCH (22:43)
[2020-04-06] MEDS ORDERED: Insulin DETEMIR 100 UNIT/ML X5UNITS SQ SCH (23:00)
[2020-04-07] MEDS: Insulin LISPRO 300 UNITS/3 ML VIAL SQ SCH ×4 (00:26→17:02)
[2020-04-07] MEDS: Insulin DETEMIR 100 UNIT/ML X5UNITS SQ SCH ×2 (00:26→20:58)
[2020-04-07] MEDS: Ipratropium/Albuterol Neb 3 ML IH SCH ×4 (04:42→22:49)
[2020-04-07 05:15] LABS: Basophils % 0.4 %; Eosinophils # 0.1 K/mcL (0.0-0.6); Eosinophils % 1.8 %; Hematocrit 31.2 % (37.5-50.1); Hemoglobin 9.7 g/dL (12.9-16.9); Immature Granulocytes % 0.7 % (0-4); Lymphocytes % 13.4 %; Mean Corpuscular HGB Conc 31.1 g/dL (31.6-35.5); Mean Corpuscular Hemoglobin 26.1 pg (28.0-33.3); Mean Corpuscular Volume 83.9 fL (83.0-100.0); Monocytes # 0.6 K/mcL (0.0-1.3); Monocytes % 7.8 %; Neutrophils # 5.4 K/mcL (1.6-8.9); Platelet Count 200 K/mcL (140-400); Red Blood Count 3.72 M/mcL (4.19-5.50); Segmented Neutrophils % 75.9 %; White Blood Count 7.1 K/mcL (4.3-11.1)
[2020-04-07 05:35] LABS: Cholesterol 97 mg/dL (< 200); HDL Cholesterol 32 mg/dL (40-59); LDL Cholesterol,Calculated 40 mg/dL (0-99); Magnesium 1.9 mg/dL (1.6-2.6); Phosphorous 4.3 mg/dL (2.7-4.5); Triglycerides 126 mg/dL (< 150)
[2020-04-07] MEDS: Levothyroxine 25 MCG TABLET PO SCH (05:44)
[2020-04-07 06:21] LABS: BUN/Creatinine Ratio 16 (6-26); Blood Urea Nitrogen 22 mg/dL (8-23); Calcium 8.9 mg/dL (8.6-10.3); Carbon Dioxide 29 mEq/L (23-29); Chloride 100 mEq/L (98-107); Glucose 169 mg/dL (70-105); Osmolality,Calculated 289 (280-300); Potassium 4.2 mEq/L (3.5-5.1); Sodium 136 mEq/L (136-145); eGFR For African Americans > 60 (> 60); eGFR For Non-African Americans 50 (> 60)
[2020-04-07] MEDS ORDERED: Furosemide 40 MG/4 ML VIAL IVP SCH (09:00)
[2020-04-07] MEDS: Tiotropium 18 MCG inhalation IH SCH (09:57)
[2020-04-07] MEDS: Furosemide 40 MG/4 ML VIAL IVP SCH (11:18)
[2020-04-07] MEDS: Apixaban 5 MG TABLET PO SCH ×2 (11:18→20:57)
[2020-04-07] MEDS ORDERED: Loratadine 10 MG TABLET PO PRN (13:21)
[2020-04-07] MEDS: MethylPREDNISolone 40 MG/ML VIAL IVP SCH (17:02)
[2020-04-07] MEDS: Ranolazine 500 MG TAB.ER.12H PO SCH (20:58)
[2020-04-07] MEDS ORDERED: Insulin LISPRO 300 UNITS/3 ML VIAL SQ SCH (21:00)
[2020-04-07] MEDS ORDERED: Folic Acid 1 MG TABLET PO SCH (21:00)
[2020-04-07] MEDS: Budesonide/Formoterol 80/4.5 1 PUFF INH IH SCH (22:55)
[2020-04-08] MEDS: Ipratropium/Albuterol Neb 3 ML IH SCH ×2 (04:13→10:51)
[2020-04-08] MEDS: Levothyroxine 25 MCG TABLET PO SCH (05:25)
[2020-04-08] MEDS: MethylPREDNISolone 40 MG/ML VIAL IVP SCH (05:26)
[2020-04-08] MEDS: Furosemide 40 MG/4 ML VIAL IVP SCH (07:50)
[2020-04-08] MEDS: Apixaban 5 MG TABLET PO SCH (07:51)
[2020-04-08] MEDS: Ranolazine 500 MG TAB.ER.12H PO SCH (07:52)
[2020-04-08] MEDS: Insulin LISPRO 300 UNITS/3 ML VIAL SQ SCH ×2 (07:52→12:13)
[2020-04-08] MEDS ORDERED: Cholecalciferol (D-3) 1,000 UNIT (25MCG) TABLET PO SCH (09:00)
[2020-04-08] MEDS ORDERED: FLUoxetine 20 MG CAPSULE PO SCH (09:00)
[2020-04-08] MEDS ORDERED: polyethylene glycoL 3350 17 GM POWD.PACK PO SCH (09:00)
[2020-04-08] MEDS ORDERED: Cyanocobalamin (B-12) 1,000 MCG TABLET PO SCH (09:00)
[2020-04-08] MEDS ORDERED: BuPROPion XL (24 HR) 150 MG TABLET PO SCH (09:00)
[2020-04-08 10:40] LABS: Hematocrit 33.8 % (37.5-50.1); Hemoglobin 10.5 g/dL (12.9-16.9); Mean Corpuscular HGB Conc 31.1 g/dL (31.6-35.5); Mean Corpuscular Hemoglobin 26.4 pg (28.0-33.3); Mean Corpuscular Volume 84.9 fL (83.0-100.0); Mean Platelet Volume 9.8 fL (9.4-12.4); Platelet Count 238 K/mcL (140-400); Red Blood Count 3.98 M/mcL (4.19-5.50); Red Cell Distribution Width 18.6 % (11.5-14.5); White Blood Count 6.9 K/mcL (4.3-11.1)
[2020-04-08] MEDS: Budesonide/Formoterol 80/4.5 1 PUFF INH IH SCH (10:51)
[2020-04-08] MEDS: Tiotropium 18 MCG inhalation IH SCH (10:51)
[2020-04-08 10:56] LABS: Calcium 9.2 mg/dL (8.6-10.3); Potassium 4.1 mEq/L (3.5-5.1)
[2020-04-08 11:08] VITALS: BP 104/51
== END 2020-04-08 12:41 | disposition home or self-care (01) ==
LOC: EMEROOARM 19:12 → 3BNU 19:12 → SUATTDRO 22:03 → 3BNU 22:29
PROVIDERS: ADMIT Family Medicine; ATTEND Internal Medicine

== ENCOUNTER 2020-05-02 14:40 | Inpatient (IN) ==
[2020-05-02 15:37] LABS: Basophils % 0.6 %; Eosinophils # 0.1 K/mcL (0.0-0.6); Eosinophils % 1.8 %; Hematocrit 31.7 % (37.5-50.1); Hemoglobin 9.5 g/dL (12.9-16.9); Immature Granulocytes % 0.3 % (0-4); Lymphocytes % 14.7 %; Mean Corpuscular Hemoglobin 26.8 pg (28.0-33.3); Mean Corpuscular Volume 89.3 fL (83.0-100.0); Mean Platelet Volume 9.9 fL (9.4-12.4); Monocytes # 0.6 K/mcL (0.0-1.3); Monocytes % 7.8 %; Neutrophils # 5.3 K/mcL (1.6-8.9); Platelet Count 245 K/mcL (140-400); Red Blood Count 3.55 M/mcL (4.19-5.50); Red Cell Distribution Width 19.5 % (11.5-14.5); Segmented Neutrophils % 74.8 %; White Blood Count 7.1 K/mcL (4.3-11.1)
[2020-05-02 16:03] LABS: Calcium 9.3 mg/dL (8.6-10.3); Potassium 4.1 mEq/L (3.5-5.1); Troponin I 0.03 ng/mL (< 0.04)
[2020-05-02] MEDS ORDERED: Bumetanide 1 MG/4 ML VIAL IVP ONE (17:51)
[2020-05-02] MEDS ORDERED: Ondansetron 4 MG/2 ML VIAL IVP PRN (18:05)
[2020-05-02] MEDS ORDERED: Acetaminophen 325 MG TABLET PO PRN (18:05)
[2020-05-02] MEDS ORDERED: Dextrose Gel 15 GM/37.5 ML TUBE PO PRN ×2 (18:11)
[2020-05-02] MEDS ORDERED: D5% in Water 1,000 ML IVC PRN (18:11)
[2020-05-02] MEDS ORDERED: *HR* Dextrose 50 % in Water (Vial) 50 ML VIAL IVP PRN (18:11)
[2020-05-02] MEDS: Insulin LISPRO 300 UNITS/3 ML VIAL SQ SCH (20:20)
[2020-05-02] MEDS ORDERED: Ipratropium/Albuterol Neb 3 ML IH PRN (20:30)
[2020-05-02] MEDS: Apixaban 5 MG TABLET PO SCH (21:08)
[2020-05-02] MEDS: Insulin DETEMIR 100 UNIT/ML X5UNITS SQ SCH (21:08)
[2020-05-02] MEDS: Ranolazine 500 MG TAB.ER.12H PO SCH (21:08)
[2020-05-02] MEDS: Furosemide 40 MG/4 ML VIAL IVP SCH (21:08)
[2020-05-02] MEDS: Budesonide/Formoterol 80/4.5 1 PUFF INH IH SCH (22:03)
[2020-05-03 02:23] LABS: Magnesium 2.3 mg/dL (1.6-2.6); Potassium 3.7 mEq/L (3.5-5.1)
[2020-05-03] MEDS: Levothyroxine 25 MCG TABLET PO SCH (05:32)
[2020-05-03] MEDS: Budesonide/Formoterol 80/4.5 1 PUFF INH IH SCH ×2 (07:35→19:58)
[2020-05-03] MEDS: Tiotropium 18 MCG inhalation IH SCH (07:36)
[2020-05-03] MEDS: Ranolazine 500 MG TAB.ER.12H PO SCH ×2 (09:06→22:20)
[2020-05-03] MEDS: Apixaban 5 MG TABLET PO SCH ×2 (09:09→22:18)
[2020-05-03] MEDS: polyethylene glycoL 3350 17 GM POWD.PACK PO SCH (09:09)
[2020-05-03] MEDS: Furosemide 40 MG/4 ML VIAL IVP SCH ×2 (09:09→17:26)
[2020-05-03] MEDS: FLUoxetine 20 MG CAPSULE PO SCH (09:09)
[2020-05-03] MEDS: Insulin LISPRO 300 UNITS/3 ML VIAL SQ SCH ×3 (09:10→17:25)
[2020-05-03] MEDS ORDERED: Melatonin 3 MG TABLET PO PRN (21:24)
[2020-05-03] MEDS: Insulin DETEMIR 100 UNIT/ML X5UNITS SQ SCH (22:20)
[2020-05-04 02:26] LABS: Basophils % 0.4 %; Eosinophils # 0.1 K/mcL (0.0-0.6); Eosinophils % 1.3 %; Hematocrit 29.3 % (37.5-50.1); Immature Granulocytes % 0.4 % (0-4); Lymphocytes # 0.9 K/mcL (0.6-4.6); Lymphocytes % 10.5 %; Mean Corpuscular HGB Conc 30.7 g/dL (31.6-35.5); Mean Corpuscular Hemoglobin 27.4 pg (28.0-33.3); Mean Corpuscular Volume 89.1 fL (83.0-100.0); Mean Platelet Volume 9.5 fL (9.4-12.4); Monocytes # 0.7 K/mcL (0.0-1.3); Neutrophils # 6.7 K/mcL (1.6-8.9); Platelet Count 210 K/mcL (140-400); Red Blood Count 3.29 M/mcL (4.19-5.50); Red Cell Distribution Width 19.4 % (11.5-14.5); Segmented Neutrophils % 79.4 %; White Blood Count 8.4 K/mcL (4.3-11.1)
[2020-05-04 02:47] LABS: Calcium 8.7 mg/dL (8.6-10.3); Potassium 4.3 mEq/L (3.5-5.1)
[2020-05-04] MEDS: Levothyroxine 25 MCG TABLET PO SCH (06:29)
[2020-05-04] MEDS: Insulin LISPRO 300 UNITS/3 ML VIAL SQ SCH ×3 (07:56→16:55)
[2020-05-04] MEDS: Tiotropium 18 MCG inhalation IH SCH (08:08)
[2020-05-04] MEDS: Budesonide/Formoterol 80/4.5 1 PUFF INH IH SCH ×2 (08:09→22:22)
[2020-05-04] MEDS: Ranolazine 500 MG TAB.ER.12H PO SCH ×2 (08:52→20:41)
[2020-05-04] MEDS: Apixaban 5 MG TABLET PO SCH ×2 (08:52→20:41)
[2020-05-04] MEDS: Furosemide 40 MG/4 ML VIAL IVP SCH ×2 (08:53→16:33)
[2020-05-04] MEDS: FLUoxetine 20 MG CAPSULE PO SCH (08:53)
[2020-05-04] MEDS: polyethylene glycoL 3350 17 GM POWD.PACK PO SCH (08:53)
[2020-05-04] MEDS: Azithromycin 250 MG TABLET PO SCH (13:16)
[2020-05-04] MEDS: predniSONE 20 MG TABLET PO SCH (13:16)
[2020-05-04] MEDS: Insulin DETEMIR 100 UNIT/ML X5UNITS SQ SCH (20:41)
[2020-05-05] MEDS ORDERED: Loratadine 10 MG TABLET PO ONE (00:56)
[2020-05-05 02:23] LABS: BUN/Creatinine Ratio 20 (6-26); Blood Urea Nitrogen 26 mg/dL (8-23); Calcium 8.5 mg/dL (8.6-10.3); Carbon Dioxide 27 mEq/L (23-29); Chloride 99 mEq/L (98-107); Glucose 278 mg/dL (70-105); Magnesium 2.2 mg/dL (1.6-2.6); Osmolality,Calculated 295 (280-300); Potassium 4.4 mEq/L (3.5-5.1); Sodium 135 mEq/L (136-145); eGFR For African Americans > 60 (> 60); eGFR For Non-African Americans 53 (> 60)
[2020-05-05] MEDS: Levothyroxine 25 MCG TABLET PO SCH (05:54)
[2020-05-05] MEDS: Insulin LISPRO 300 UNITS/3 ML VIAL SQ SCH ×3 (09:15→17:06)
[2020-05-05] MEDS: Ranolazine 500 MG TAB.ER.12H PO SCH ×2 (09:16→20:14)
[2020-05-05] MEDS: FLUoxetine 20 MG CAPSULE PO SCH (09:16)
[2020-05-05] MEDS: Azithromycin 250 MG TABLET PO SCH (09:17)
[2020-05-05] MEDS: predniSONE 20 MG TABLET PO SCH (09:17)
[2020-05-05] MEDS: polyethylene glycoL 3350 17 GM POWD.PACK PO SCH (09:18)
[2020-05-05] MEDS: Apixaban 5 MG TABLET PO SCH ×2 (09:18→20:14)
[2020-05-05] MEDS: Furosemide 40 MG/4 ML VIAL IVP SCH (09:18)
[2020-05-05] MEDS: Budesonide/Formoterol 80/4.5 1 PUFF INH IH SCH ×2 (09:28→20:16)
[2020-05-05] MEDS: Tiotropium 18 MCG inhalation IH SCH (09:29)
[2020-05-05] MEDS ORDERED: Saline Nasal Spray 44 ML BOTTLE NS PRN (09:50)
[2020-05-05] MEDS: Torsemide 20 MG TABLET PO SCH (17:05)
[2020-05-05] MEDS: Insulin DETEMIR 100 UNIT/ML X5UNITS SQ SCH (20:15)
[2020-05-06 02:48] LABS: Calcium 8.6 mg/dL (8.6-10.3); Potassium 4.2 mEq/L (3.5-5.1)
[2020-05-06] MEDS: Levothyroxine 25 MCG TABLET PO SCH (05:29)
[2020-05-06 06:56] VITALS: BP 129/66
[2020-05-06] MEDS: Budesonide/Formoterol 80/4.5 1 PUFF INH IH SCH (07:53)
[2020-05-06] MEDS: Tiotropium 18 MCG inhalation IH SCH (07:54)
[2020-05-06] MEDS: Apixaban 5 MG TABLET PO SCH (09:21)
[2020-05-06] MEDS: predniSONE 20 MG TABLET PO SCH (09:21)
[2020-05-06] MEDS: FLUoxetine 20 MG CAPSULE PO SCH (09:21)
[2020-05-06] MEDS: Azithromycin 250 MG TABLET PO SCH (09:21)
[2020-05-06] MEDS: Ranolazine 500 MG TAB.ER.12H PO SCH (09:21)
[2020-05-06] MEDS: Torsemide 20 MG TABLET PO SCH (09:21)
[2020-05-06] MEDS: polyethylene glycoL 3350 17 GM POWD.PACK PO SCH (09:22)
[2020-05-06] MEDS: Insulin LISPRO 300 UNITS/3 ML VIAL SQ SCH (09:22)
== END 2020-05-06 10:40 | disposition home or self-care (01) | DRG 291 ==
LOC: EMEROOARM 14:40 → 2ANU 14:40 → SUATTDRO 18:38 → 2ANU 20:10
PROVIDERS: ADMIT Internal Medicine; ATTEND Internal Medicine

== ENCOUNTER 2020-06-25 13:40 | Observation (INO) ==
[2020-06-25] MEDS ORDERED: 0.9 % Sodium Chloride 1,000 ML IVC ONE (13:59)
[2020-06-25 14:15] LABS: Basophils % 0.4 %; Eosinophils # 0.1 K/mcL (0.0-0.6); Eosinophils % 1.1 %; Hematocrit 36.6 % (37.5-50.1); Hemoglobin 11.3 g/dL (12.9-16.9); Immature Granulocytes % 0.3 % (0-4); Lymphocytes # 0.9 K/mcL (0.6-4.6); Lymphocytes % 12.4 %; Mean Corpuscular HGB Conc 30.9 g/dL (31.6-35.5); Mean Corpuscular Hemoglobin 27.5 pg (28.0-33.3); Mean Corpuscular Volume 89.1 fL (83.0-100.0); Mean Platelet Volume 9.7 fL (9.4-12.4); Monocytes # 0.6 K/mcL (0.0-1.3); Monocytes % 7.9 %; Neutrophils # 5.8 K/mcL (1.6-8.9); Platelet Count 192 K/mcL (140-400); Red Blood Count 4.11 M/mcL (4.19-5.50); Red Cell Distribution Width 18.1 % (11.5-14.5); Segmented Neutrophils % 77.9 %; White Blood Count 7.5 K/mcL (4.3-11.1)
[2020-06-25 14:17] LABS: INR 1.9; Prothrombin Time 21.8 Seconds (9.4-12.1)
[2020-06-25 14:20] LABS: Activated Partial Thrombo Time 42.6 Seconds (26.0-36.0)
[2020-06-25 14:41] LABS: Albumin 4.5 g/dL (3.5-5.7); Albumin/Globulin Ratio 1.7 (1.1-2.2); Bilirubin,Direct 0.1 mg/dL (0.0-0.2); Bilirubin,Indirect 0.5 mg/dL (0.0-1.0); Bilirubin,Total 0.6 mg/dL (0.3-1.0); Calcium 9.4 mg/dL (8.6-10.3); Globulin 2.6 g/dL (2.4-3.5); Magnesium 2.1 mg/dL (1.6-2.6); Phosphorous 3.6 mg/dL (2.7-4.5); Potassium 4.3 mEq/L (3.5-5.1); Total Protein 7.1 g/dL (6.4-8.9); Troponin I 0.04 ng/mL (< 0.04)
[2020-06-25] MEDS ORDERED: Aspirin 81 MG TAB.CHEW PO STA (15:56)
[2020-06-25] MEDS ORDERED: Furosemide 40 MG in 0.9 % Sodium Chloride 50 ML IVPB ONE (16:33)
[2020-06-25] MEDS ORDERED: Furosemide 40 MG/4 ML VIAL IVP ONE (16:38)
[2020-06-25] MEDS ORDERED: Naloxone 0.4 MG/ML INJ IVP PRN (17:36)
[2020-06-25] MEDS ORDERED: Ondansetron 4 MG/2 ML VIAL IVP PRN (17:36)
[2020-06-25] MEDS ORDERED: Dextrose Gel 15 GM/37.5 ML TUBE PO PRN ×2 (17:36)
[2020-06-25] MEDS ORDERED: Mag Hydrox/Al Hydrox/Simeth 30 ML UDC PO PRN (17:36)
[2020-06-25] MEDS ORDERED: Acetaminophen 325 MG TABLET PO PRN (17:36)
[2020-06-25] MEDS ORDERED: D5% in Water 1,000 ML IVC PRN (17:36)
[2020-06-25] MEDS ORDERED: *HR* Dextrose 50 % in Water (Vial) 50 ML VIAL IVP PRN (17:36)
[2020-06-25] MEDS ORDERED: MOM Conc 10 ML UD.LIQ PO PRN (17:36)
[2020-06-25 18:14] LABS: Bilirubin,Urine Negative (Negative); Blood,Urine Negative (Negative); Clarity,Urine Clear (Clear); Color,Urine Light-Yellow (Yellow); Glucose,Urine (UA) Normal (Normal); Ketones,Urine Negative (Negative); Leukocyte Esterase,Urine Negative (Negative); Nitrite,Urine Negative (Negative); PH,Urine 6.5 pH Units (5.0-8.0); Protein,Urine Negative (Neg-Trace); Specific Gravity,Urine 1.013 (1.010-1.025); Urobilinogen,Urine Normal (Normal)
[2020-06-25] MEDS ORDERED: Loratadine 10 MG TABLET PO PRN (18:39)
[2020-06-25 19:14] LABS: Adenovirus Not Detected (Not Detect); Coronavirus 229E Not Detected (Not Detect); Coronavirus HKU1 Not Detected (Not Detect); Coronavirus NL63 Not Detected (Not Detect); Coronavirus OC43 Not Detected (Not Detect)
[2020-06-25 19:15] LABS: Bordetella Pertussis Not Detected (Not Detect); Chlamydophila pneumoniae Not Detected (Not Detect); Human Metapneumovirus Not Detected (Not Detect); Human Rhinovirus/Enterovirus Not Detected (Not Detect); Influenza A Subtype 2009 H1 Not Detected (Not Detect); Influenza B Not Detected (Not Detect); Mycoplasma pneumoniae Not Detected (Not Detect); Parainfluenza Virus 1 Not Detected (Not Detect); Parainfluenza Virus 2 Not Detected (Not Detect); Parainfluenza Virus 3 Not Detected (Not Detect); Parainfluenza Virus 4 Not Detected (Not Detect); Respiratory Syncytial Virus Not Detected (Not Detect)
[2020-06-25] MEDS: Budesonide/Formoterol 80/4.5 1 PUFF INH IH SCH (19:57)
[2020-06-25] MEDS: Insulin DETEMIR 100 UNIT/ML X5UNITS SQ SCH (20:36)
[2020-06-25] MEDS: Insulin LISPRO 300 UNITS/3 ML VIAL SQ SCH (20:36)
[2020-06-25] MEDS: Apixaban 5 MG TABLET PO SCH (20:37)
[2020-06-25] MEDS: Ranolazine 500 MG TAB.ER.12H PO SCH (20:38)
[2020-06-25] MEDS: Furosemide 40 MG/4 ML VIAL IVP SCH (20:48)
[2020-06-25] MEDS ORDERED: cefTRIAXone 1,000 MG in Water for inj. (sterile) 20 ML IVP SCH ×2 (21:00)
[2020-06-26 04:39] LABS: Hematocrit 34.3 % (37.5-50.1); Hemoglobin 10.4 g/dL (12.9-16.9); Mean Corpuscular HGB Conc 30.3 g/dL (31.6-35.5); Mean Corpuscular Hemoglobin 26.9 pg (28.0-33.3); Mean Corpuscular Volume 88.9 fL (83.0-100.0); Mean Platelet Volume 9.2 fL (9.4-12.4); Platelet Count 191 K/mcL (140-400); Red Blood Count 3.86 M/mcL (4.19-5.50); White Blood Count 8.2 K/mcL (4.3-11.1)
[2020-06-26 05:00] LABS: BUN/Creatinine Ratio 18 (6-26); Blood Urea Nitrogen 23 mg/dL (8-23); Calcium 8.9 mg/dL (8.6-10.3); Carbon Dioxide 27 mEq/L (23-29); Chloride 101 mEq/L (98-107); Chol/HDL Ratio 3.1 (0-4.9); Cholesterol 91 mg/dL (< 200); Glucose 131 mg/dL (70-105); HDL Cholesterol 29 mg/dL (40-59); LDL Cholesterol,Calculated 32 mg/dL (< 100); Magnesium 2.2 mg/dL (1.6-2.6); Osmolality,Calculated 289 (280-300); Potassium 4.3 mEq/L (3.5-5.1); Sodium 137 mEq/L (136-145); Triglycerides 152 mg/dL (< 150); eGFR For African Americans > 60 (> 60); eGFR For Non-African Americans 53 (> 60)
[2020-06-26] MEDS: Levothyroxine 25 MCG TABLET PO SCH (05:28)
[2020-06-26] MEDS: Budesonide/Formoterol 80/4.5 1 PUFF INH IH SCH ×2 (07:38→20:35)
[2020-06-26] MEDS: Ranolazine 500 MG TAB.ER.12H PO SCH ×2 (09:17→21:05)
[2020-06-26] MEDS: BuPROPion XL (24 HR) 150 MG TABLET PO SCH (09:17)
[2020-06-26] MEDS: Apixaban 5 MG TABLET PO SCH ×2 (09:18→21:05)
[2020-06-26] MEDS: FLUoxetine 20 MG CAPSULE PO SCH (09:19)
[2020-06-26] MEDS: Furosemide 40 MG/4 ML VIAL IVP SCH ×2 (09:21→15:59)
[2020-06-26] MEDS: polyethylene glycoL 3350 17 GM POWD.PACK PO SCH (09:23)
[2020-06-26] MEDS: Insulin LISPRO 300 UNITS/3 ML VIAL SQ SCH ×7 (09:27→21:06)
[2020-06-26] MEDS: Insulin DETEMIR 100 UNIT/ML X5UNITS SQ SCH (21:05)
[2020-06-26] MEDS: Sulfamethoxazole/Trimeth DS 1 EACH TABLET PO SCH (21:05)
[2020-06-27] MEDS: Levothyroxine 25 MCG TABLET PO SCH (05:12)
[2020-06-27 05:27] LABS: Hematocrit 36.6 % (37.5-50.1); Hemoglobin 10.9 g/dL (12.9-16.9); Mean Corpuscular HGB Conc 29.8 g/dL (31.6-35.5); Mean Corpuscular Hemoglobin 26.7 pg (28.0-33.3); Mean Corpuscular Volume 89.5 fL (83.0-100.0); Mean Platelet Volume 9.7 fL (9.4-12.4); Platelet Count 202 K/mcL (140-400); Red Blood Count 4.09 M/mcL (4.19-5.50); Red Cell Distribution Width 17.7 % (11.5-14.5); White Blood Count 9.5 K/mcL (4.3-11.1)
[2020-06-27 07:02] LABS: Calcium 9.5 mg/dL (8.6-10.3); Potassium 4.3 mEq/L (3.5-5.1)
[2020-06-27] MEDS: polyethylene glycoL 3350 17 GM POWD.PACK PO SCH ×2 (09:21→09:36)
[2020-06-27] MEDS: Furosemide 40 MG/4 ML VIAL IVP SCH ×2 (09:22→13:58)
[2020-06-27] MEDS: Insulin LISPRO 300 UNITS/3 ML VIAL SQ SCH ×7 (09:25→20:48)
[2020-06-27] MEDS: Ranolazine 500 MG TAB.ER.12H PO SCH ×2 (09:31→20:47)
[2020-06-27] MEDS: Sulfamethoxazole/Trimeth DS 1 EACH TABLET PO SCH ×2 (09:32→20:47)
[2020-06-27] MEDS: Cyanocobalamin (B-12) 1,000 MCG TABLET PO SCH (09:32)
[2020-06-27] MEDS: BuPROPion XL (24 HR) 150 MG TABLET PO SCH (09:32)
[2020-06-27] MEDS: FLUoxetine 20 MG CAPSULE PO SCH (09:32)
[2020-06-27] MEDS: Apixaban 5 MG TABLET PO SCH ×2 (09:32→20:47)
[2020-06-27] MEDS: Cholecalciferol (D-3) 1,000 UNIT (25MCG) TABLET PO SCH (09:32)
[2020-06-27] MEDS: Magnesium Oxide 400 MG TABLET PO SCH ×2 (09:32→20:47)
[2020-06-27] MEDS: Budesonide/Formoterol 80/4.5 1 PUFF INH IH SCH ×2 (10:26→20:59)
[2020-06-27] MEDS ORDERED: Albumin 25% 25gram/100mL 25 GM/100 ML IV.SOLN IVPB ONE (14:00)
[2020-06-27] MEDS: Insulin DETEMIR 100 UNIT/ML X5UNITS SQ SCH (20:48)
[2020-06-27] MEDS ORDERED: Folic Acid 1 MG TABLET PO SCH (21:00)
[2020-06-28] MEDS: Levothyroxine 25 MCG TABLET PO SCH (05:22)
[2020-06-28 05:36] LABS: Hematocrit 35.1 % (37.5-50.1); Hemoglobin 10.8 g/dL (12.9-16.9); Mean Corpuscular HGB Conc 30.8 g/dL (31.6-35.5); Mean Corpuscular Hemoglobin 27.8 pg (28.0-33.3); Mean Corpuscular Volume 90.2 fL (83.0-100.0); Mean Platelet Volume 9.9 fL (9.4-12.4); Platelet Count 188 K/mcL (140-400); Red Blood Count 3.89 M/mcL (4.19-5.50); Red Cell Distribution Width 17.6 % (11.5-14.5); White Blood Count 7.8 K/mcL (4.3-11.1)
[2020-06-28 06:00] LABS: Calcium 9.2 mg/dL (8.6-10.3); Potassium 4.4 mEq/L (3.5-5.1)
[2020-06-28] MEDS: Insulin LISPRO 300 UNITS/3 ML VIAL SQ SCH ×4 (07:54→12:10)
[2020-06-28] MEDS: Sulfamethoxazole/Trimeth DS 1 EACH TABLET PO SCH (07:57)
[2020-06-28] MEDS: Magnesium Oxide 400 MG TABLET PO SCH (07:57)
[2020-06-28] MEDS: Apixaban 5 MG TABLET PO SCH (07:57)
[2020-06-28] MEDS: polyethylene glycoL 3350 17 GM POWD.PACK PO SCH (07:57)
[2020-06-28] MEDS: Furosemide 40 MG/4 ML VIAL IVP SCH (07:57)
[2020-06-28] MEDS: Cholecalciferol (D-3) 1,000 UNIT (25MCG) TABLET PO SCH (07:58)
[2020-06-28] MEDS: FLUoxetine 20 MG CAPSULE PO SCH (07:58)
[2020-06-28] MEDS: BuPROPion XL (24 HR) 150 MG TABLET PO SCH (07:58)
[2020-06-28] MEDS: Cyanocobalamin (B-12) 1,000 MCG TABLET PO SCH (07:58)
[2020-06-28] MEDS: Ranolazine 500 MG TAB.ER.12H PO SCH (07:58)
[2020-06-28] MEDS: Budesonide/Formoterol 80/4.5 1 PUFF INH IH SCH (08:04)
[2020-06-28 12:08] VITALS: BP 127/73
== END 2020-06-28 14:44 | disposition home health service (06) ==
LOC: 3BNU 13:40 → EMEROOARM 13:40 → 3BNU 20:02
PROVIDERS: ADMIT Student in an Organized Health Care Education/Training Program; ATTEND Student in an Organized Health Care Education/Training Program

== ENCOUNTER 2020-09-11 06:08 | Observation (INO) ==
[2020-09-11] MEDS ORDERED: Naloxone 0.4 MG/ML INJ IVP PRN (07:59)
[2020-09-11] MEDS ORDERED: Dextrose Gel 15 GM/37.5 ML TUBE PO PRN ×2 (08:06)
[2020-09-11] MEDS ORDERED: D5% in Water 1,000 ML IVC PRN (08:06)
[2020-09-11] MEDS ORDERED: *HR* Dextrose 50 % in Water (Vial) 50 ML VIAL IVP PRN (08:06)
[2020-09-11 09:57] LABS: Adenovirus Not Detected (Not Detect); Bordetella Pertussis Not Detected (Not Detect); Chlamydophila pneumoniae Not Detected (Not Detect); Coronavirus 229E Not Detected (Not Detect); Coronavirus HKU1 Not Detected (Not Detect); Coronavirus NL63 Not Detected (Not Detect); Coronavirus OC43 Not Detected (Not Detect); Human Metapneumovirus Not Detected (Not Detect); Human Rhinovirus/Enterovirus Not Detected (Not Detect); Influenza A Subtype 2009 H1 Not Detected (Not Detect); Influenza B Not Detected (Not Detect); Mycoplasma pneumoniae Not Detected (Not Detect); Parainfluenza Virus 1 Not Detected (Not Detect); Parainfluenza Virus 2 Not Detected (Not Detect); Parainfluenza Virus 3 Not Detected (Not Detect); Parainfluenza Virus 4 Not Detected (Not Detect); Respiratory Syncytial Virus Not Detected (Not Detect); SARS-CoV-2 Not Detected (Not Detect)
[2020-09-11] MEDS ORDERED: Furosemide 20 MG/2 ML VIAL IVP ONE (10:12)
[2020-09-11] MEDS: Ondansetron ODT 4 MG TAB.RAPDIS SL PRN ×2 (10:58→19:33)
[2020-09-11] MEDS: Azithromycin 500 MG in 0.9 % Sodium Chloride 250 ML IVPB SCH (10:59)
[2020-09-11] MEDS: cefTRIAXone 1,000 MG in Water for inj. (sterile) 10 ML IVP SCH (10:59)
[2020-09-11 11:51] LABS: BUN/Creatinine Ratio 23 (6-26); Blood Urea Nitrogen 31 mg/dL (8-23); Carbon Dioxide 33 mEq/L (23-29); Chloride 100 mEq/L (98-107); Glucose 184 mg/dL (70-105); Osmolality,Calculated 301 (280-300); Potassium 4.1 mEq/L (3.5-5.1); Sodium 140 mEq/L (136-145); eGFR For African Americans > 60 (> 60); eGFR For Non-African Americans 52 (> 60)
[2020-09-11] MEDS: Apixaban 5 MG TABLET PO SCH ×2 (11:59→20:55)
[2020-09-11] MEDS: Insulin LISPRO 300 UNITS/3 ML VIAL SQ SCH ×2 (12:01→17:46)
[2020-09-11] MEDS: Insulin DETEMIR 100 UNIT/ML X5UNITS SQ SCH (20:56)
[2020-09-11] MEDS ORDERED: Insulin LISPRO 300 UNITS/3 ML VIAL SQ SCH (21:00)
[2020-09-12 04:09] LABS: Hematocrit 29.8 % (37.5-50.1); Hemoglobin 8.8 g/dL (12.9-16.9); Mean Corpuscular HGB Conc 29.5 g/dL (31.6-35.5); Mean Corpuscular Hemoglobin 26.4 pg (28.0-33.3); Mean Corpuscular Volume 89.5 fL (83.0-100.0); Mean Platelet Volume 9.8 fL (9.4-12.4); Platelet Count 170 K/mcL (140-400); Red Blood Count 3.33 M/mcL (4.19-5.50); Red Cell Distribution Width 18.1 % (11.5-14.5); White Blood Count 10.1 K/mcL (4.3-11.1)
[2020-09-12 04:21] LABS: BUN/Creatinine Ratio 20 (6-26); Blood Urea Nitrogen 26 mg/dL (8-23); Calcium 8.9 mg/dL (8.6-10.3); Carbon Dioxide 31 mEq/L (23-29); Chloride 102 mEq/L (98-107); Glucose 120 mg/dL (70-105); Osmolality,Calculated 296 (280-300); Potassium 3.8 mEq/L (3.5-5.1); Sodium 140 mEq/L (136-145); eGFR For African Americans > 60 (> 60); eGFR For Non-African Americans 54 (> 60)
[2020-09-12] MEDS: Insulin LISPRO 300 UNITS/3 ML VIAL SQ SCH ×3 (07:23→17:04)
[2020-09-12] MEDS: cefTRIAXone 1,000 MG in Water for inj. (sterile) 10 ML IVP SCH (07:27)
[2020-09-12] MEDS: Azithromycin 500 MG in 0.9 % Sodium Chloride 250 ML IVPB SCH (07:27)
[2020-09-12] MEDS: Apixaban 5 MG TABLET PO SCH ×2 (07:28→20:10)
[2020-09-12] MEDS: MethylPREDNISolone 40 MG/ML VIAL IVP SCH ×2 (09:11→17:03)
[2020-09-12] MEDS: polyethylene glycoL 3350 17 GM POWD.PACK PO SCH (14:13)
[2020-09-12] MEDS ORDERED: Ipratropium/Albuterol Neb 3 ML IH PRN (14:24)
[2020-09-12] MEDS: Torsemide 20 MG TABLET PO SCH (17:03)
[2020-09-12] MEDS ORDERED: Loratadine 10 MG TABLET PO PRN (17:25)
[2020-09-12] MEDS: Budesonide/Formoterol 80/4.5 1 PUFF INH IH SCH (19:56)
[2020-09-12] MEDS: Ranolazine 500 MG TAB.ER.12H PO SCH (20:10)
[2020-09-12] MEDS: Magnesium Oxide 400 MG TABLET PO SCH (20:10)
[2020-09-12] MEDS: Insulin DETEMIR 100 UNIT/ML X5UNITS SQ SCH (20:11)
[2020-09-12] MEDS ORDERED: Insulin LISPRO 300 UNITS/3 ML VIAL SQ SCH (21:00)
[2020-09-12] MEDS ORDERED: Folic Acid 1 MG TABLET PO SCH (21:00)
[2020-09-13] MEDS: MethylPREDNISolone 40 MG/ML VIAL IVP SCH ×2 (04:42→17:02)
[2020-09-13] MEDS: Ondansetron ODT 4 MG TAB.RAPDIS SL PRN (04:42)
[2020-09-13 05:08] LABS: Basophils % 0.1 %; Hematocrit 28.2 % (37.5-50.1); Hemoglobin 8.4 g/dL (12.9-16.9); Immature Granulocytes % 0.1 % (0-4); Lymphocytes # 0.5 K/mcL (0.6-4.6); Lymphocytes % 7.8 %; Mean Corpuscular HGB Conc 29.8 g/dL (31.6-35.5); Mean Corpuscular Hemoglobin 26.4 pg (28.0-33.3); Mean Corpuscular Volume 88.7 fL (83.0-100.0); Mean Platelet Volume 9.8 fL (9.4-12.4); Monocytes # 0.3 K/mcL (0.0-1.3); Monocytes % 4.3 %; Neutrophils # 5.8 K/mcL (1.6-8.9); Platelet Count 148 K/mcL (140-400); Red Blood Count 3.18 M/mcL (4.19-5.50); Red Cell Distribution Width 17.8 % (11.5-14.5); Segmented Neutrophils % 87.7 %; White Blood Count 6.7 K/mcL (4.3-11.1)
[2020-09-13 05:24] LABS: BUN/Creatinine Ratio 23 (6-26); Blood Urea Nitrogen 30 mg/dL (8-23); Calcium 8.8 mg/dL (8.6-10.3); Carbon Dioxide 28 mEq/L (23-29); Chloride 100 mEq/L (98-107); Glucose 353 mg/dL (70-105); Osmolality,Calculated 302 (280-300); Potassium 4.4 mEq/L (3.5-5.1); Sodium 136 mEq/L (136-145); eGFR For African Americans > 60 (> 60); eGFR For Non-African Americans 53 (> 60)
[2020-09-13] MEDS: Insulin LISPRO 300 UNITS/3 ML VIAL SQ SCH ×3 (08:29→17:03)
[2020-09-13] MEDS: Torsemide 20 MG TABLET PO SCH (08:34)
[2020-09-13] MEDS: Apixaban 5 MG TABLET PO SCH (08:34)
[2020-09-13] MEDS: polyethylene glycoL 3350 17 GM POWD.PACK PO SCH (08:35)
[2020-09-13] MEDS: Magnesium Oxide 400 MG TABLET PO SCH (08:35)
[2020-09-13] MEDS: Ranolazine 500 MG TAB.ER.12H PO SCH (08:37)
[2020-09-13] MEDS: cefTRIAXone 1,000 MG in Water for inj. (sterile) 10 ML IVP SCH (08:52)
[2020-09-13] MEDS ORDERED: FLUoxetine 20 MG CAPSULE PO SCH (09:00)
[2020-09-13] MEDS ORDERED: Levothyroxine 25 MCG TABLET PO SCH ×2 (09:00)
[2020-09-13] MEDS ORDERED: BuPROPion XL (24 HR) 150 MG TABLET PO SCH (09:00)
[2020-09-13] MEDS ORDERED: Azithromycin 250 MG TABLET PO SCH (10:00)
[2020-09-13] MEDS: Budesonide/Formoterol 80/4.5 1 PUFF INH IH SCH (10:39)
[2020-09-13] MEDS ORDERED: Torsemide 20 MG TABLET PO SCH (13:00)
[2020-09-13 16:18] VITALS: BP 110/61
== END 2020-09-13 17:26 | disposition home health service (06) ==
LOC: CDU → SUATTDRO 08:16 → 2ANU 10:07
PROVIDERS: ADMIT Family Medicine; ATTEND Family Medicine

== ENCOUNTER 2020-11-04 07:15 | Observation (INO) ==
[2020-11-04 07:41] LABS: Basophils % 0.4 %; Eosinophils # 0.1 K/mcL (0.0-0.6); Eosinophils % 0.8 %; Hematocrit 26.8 % (37.5-50.1); Hemoglobin 7.8 g/dL (12.9-16.9); Immature Granulocytes % 0.6 % (0-4); Lymphocytes # 0.9 K/mcL (0.6-4.6); Lymphocytes % 10.7 %; Mean Corpuscular HGB Conc 29.1 g/dL (31.6-35.5); Mean Corpuscular Hemoglobin 25.7 pg (28.0-33.3); Mean Corpuscular Volume 88.2 fL (83.0-100.0); Mean Platelet Volume 9.4 fL (9.4-12.4); Monocytes # 0.6 K/mcL (0.0-1.3); Monocytes % 6.5 %; Neutrophils # 6.9 K/mcL (1.6-8.9); Nucleated Red Blood Cells 0.2 /100 WBC (0); Platelet Count 181 K/mcL (140-400); Red Blood Count 3.04 M/mcL (4.19-5.50); Red Cell Distribution Width 19.9 % (11.5-14.5); White Blood Count 8.5 K/mcL (4.3-11.1)
[2020-11-04 08:02] LABS: Albumin 4.1 g/dL (3.5-5.7); Albumin/Globulin Ratio 1.8 (1.1-2.2); Bilirubin,Direct 0.1 mg/dL (0.0-0.2); Bilirubin,Indirect 0.4 mg/dL (0.0-1.0); Bilirubin,Total 0.5 mg/dL (0.3-1.0); Calcium 8.9 mg/dL (8.6-10.3); Globulin 2.3 g/dL (2.4-3.5); Potassium 4.1 mEq/L (3.5-5.1); Total Protein 6.4 g/dL (6.4-8.9); Troponin I 0.03 ng/mL (< 0.04)
[2020-11-04] MEDS ORDERED: Ondansetron ODT 4 MG TAB.RAPDIS SL PRN (09:17)
[2020-11-04] MEDS ORDERED: Naloxone 0.4 MG/ML INJ IVP PRN (09:17)
[2020-11-04] MEDS ORDERED: MOM Conc 10 ML UD.LIQ PO PRN (09:17)
[2020-11-04] MEDS ORDERED: 0.9 % Sodium Chloride 250 ML ONE (09:45)
[2020-11-04] MEDS: Furosemide 40 MG/4 ML VIAL IVP SCH ×2 (09:50→21:56)
[2020-11-04] MEDS ORDERED: Perflutren Lipid Microsphere 1.3 ML in 0.9 % Sodium Chloride 8.7 ML IVP PRN (10:44)
[2020-11-04 12:39] LABS: Bilirubin,Urine Negative (Negative); Blood,Urine Trace (Negative); Clarity,Urine Clear (Clear); Color,Urine Light-Yellow (Yellow); Glucose,Urine (UA) Normal (Normal); Ketones,Urine Negative (Negative); Leukocyte Esterase,Urine Negative (Negative); Nitrite,Urine Negative (Negative); Protein,Urine Negative (Neg-Trace); RBC,Urine 15-30 per hpf (0-3); Specific Gravity,Urine 1.013 (1.010-1.025); Urobilinogen,Urine Normal (Normal); WBC,Urine 0-3 per hpf (0-3)
[2020-11-04] MEDS ORDERED: *HR* Propofol 200 MG/20 ML VIAL IVP ONE (13:03)
[2020-11-04] MEDS ORDERED: Lidocaine -MPF 2% 2 ML VIAL ONE (13:03)
[2020-11-04] MEDS ORDERED: Simethicone 40 MG/0.6 ML MLS IR ONE (13:07)
[2020-11-04 16:02] LABS: Hematocrit 27.4 % (37.5-50.1); Hemoglobin 8.1 g/dL (12.9-16.9)
[2020-11-04] MEDS ORDERED: SODIUM CHLORIDE/NAHCO3/KCL/PEG 4,000 ML SOLN.RECON PO ONE (17:00)
[2020-11-04] MEDS: Pantoprazole 40 MG VIAL IVP SCH (17:14)
[2020-11-05 04:51] LABS: Hematocrit 28.3 % (37.5-50.1); Hemoglobin 8.4 g/dL (12.9-16.9); Mean Corpuscular HGB Conc 29.7 g/dL (31.6-35.5); Mean Corpuscular Hemoglobin 25.9 pg (28.0-33.3); Mean Corpuscular Volume 87.3 fL (83.0-100.0); Mean Platelet Volume 10.4 fL (9.4-12.4); Platelet Count 190 K/mcL (140-400); Red Blood Count 3.24 M/mcL (4.19-5.50); Red Cell Distribution Width 19.8 % (11.5-14.5); White Blood Count 9.2 K/mcL (4.3-11.1)
[2020-11-05 05:02] LABS: INR 1.6; Prothrombin Time 18.1 Seconds (9.4-12.1)
[2020-11-05 05:13] LABS: BUN/Creatinine Ratio 17 (6-26); Blood Urea Nitrogen 22 mg/dL (8-23); Calcium 8.3 mg/dL (8.6-10.3); Carbon Dioxide 29 mEq/L (23-29); Chloride 99 mEq/L (98-107); Glucose 216 mg/dL (70-105); Osmolality,Calculated 296 (280-300); Potassium 3.5 mEq/L (3.5-5.1); Sodium 138 mEq/L (136-145); eGFR For African Americans > 60 (> 60); eGFR For Non-African Americans 52 (> 60)
[2020-11-05] MEDS: Pantoprazole 40 MG VIAL IVP SCH (06:25)
[2020-11-05] MEDS: Furosemide 40 MG/4 ML VIAL IVP SCH (10:11)
[2020-11-05] MEDS ORDERED: Lidocaine -MPF 2% 2 ML VIAL ONE (13:27)
[2020-11-05] MEDS ORDERED: *HR* Dextrose 50 % in Water (Vial) 50 ML VIAL IVP PRN (14:03)
[2020-11-05] MEDS ORDERED: Dextrose Gel 15 GM/37.5 ML TUBE PO PRN ×2 (14:03)
[2020-11-05] MEDS ORDERED: D5% in Water 1,000 ML IVC PRN (14:03)
[2020-11-05 15:35] VITALS: BP 118/58
[2020-11-05] MEDS ORDERED: Insulin LISPRO 300 UNITS/3 ML VIAL SUBQ SCH ×2 (16:30→21:00)
[2020-11-05] MEDS ORDERED: Insulin DETEMIR 100 UNIT/ML X5UNITS SUBQ SCH (21:00)
== END 2020-11-05 17:29 | disposition home or self-care (01) ==
LOC: SUATTDRO → 3ANU 07:15 → EMEROOARM 07:15 → SUATTDRO 09:57 → 3ANU 11:31
PROVIDERS: ADMIT Family Medicine; ATTEND Internal Medicine

== ENCOUNTER 2020-11-13 21:17 | Observation (INO) ==
[2020-11-14] MEDS ORDERED: Naloxone 0.4 MG/ML INJ IVP PRN (02:06)
[2020-11-14] MEDS ORDERED: Ondansetron ODT 4 MG TAB.RAPDIS SL PRN (02:06)
[2020-11-14] MEDS ORDERED: *HR* Dextrose 50 % in Water (Vial) 50 ML VIAL IVP PRN (02:33)
[2020-11-14] MEDS ORDERED: Dextrose Gel 15 GM/37.5 ML TUBE PO PRN ×2 (02:33)
[2020-11-14] MEDS ORDERED: D5% in Water 1,000 ML IVC PRN (02:33)
[2020-11-14] MEDS: Insulin LISPRO 300 UNITS/3 ML VIAL SUBQ SCH ×3 (07:34→17:22)
[2020-11-14 07:47] LABS: Basophils % 0.4 %; Eosinophils # 0.1 K/mcL (0.0-0.6); Eosinophils % 1.6 %; Hematocrit 28.5 % (37.5-50.1); Hemoglobin 8.3 g/dL (12.9-16.9); Immature Granulocytes % 0.6 % (0-4); Lymphocytes % 12.9 %; Mean Corpuscular HGB Conc 29.1 g/dL (31.6-35.5); Mean Corpuscular Hemoglobin 25.5 pg (28.0-33.3); Mean Corpuscular Volume 87.4 fL (83.0-100.0); Mean Platelet Volume 9.9 fL (9.4-12.4); Monocytes # 0.6 K/mcL (0.0-1.3); Monocytes % 6.9 %; Neutrophils # 6.3 K/mcL (1.6-8.9); Platelet Count 191 K/mcL (140-400); Red Blood Count 3.26 M/mcL (4.19-5.50); Red Cell Distribution Width 19.4 % (11.5-14.5); Segmented Neutrophils % 77.6 %; White Blood Count 8.1 K/mcL (4.3-11.1)
[2020-11-14 08:08] LABS: BUN/Creatinine Ratio 16 (6-26); Blood Urea Nitrogen 21 mg/dL (8-23); Calcium 8.7 mg/dL (8.6-10.3); Carbon Dioxide 30 mEq/L (23-29); Chloride 102 mEq/L (98-107); Glucose 105 mg/dL (70-105); Magnesium 2.1 mg/dL (1.6-2.6); Osmolality,Calculated 289 (280-300); Phosphorous 3.2 mg/dL (2.7-4.5); Potassium 3.9 mEq/L (3.5-5.1); Sodium 138 mEq/L (136-145); eGFR For African Americans > 60 (> 60); eGFR For Non-African Americans 51 (> 60)
[2020-11-14] MEDS: Furosemide 40 MG/4 ML VIAL IVP SCH ×2 (08:42→17:22)
[2020-11-14] MEDS: Budesonide/Formoterol 80/4.5 1 PUFF INH IH SCH ×2 (12:51→20:06)
[2020-11-14] MEDS: BuPROPion XL (24 HR) 150 MG TABLET PO SCH (12:57)
[2020-11-14] MEDS: Ranolazine 500 MG TAB.ER.12H PO SCH ×2 (12:58→20:22)
[2020-11-14] MEDS: FLUoxetine 20 MG CAPSULE PO SCH (12:58)
[2020-11-14] MEDS: Apixaban 5 MG TABLET PO SCH ×2 (12:58→20:23)
[2020-11-14] MEDS: Levothyroxine 25 MCG TABLET PO SCH (12:58)
[2020-11-14] MEDS: Magnesium Oxide 400 MG TABLET PO SCH (20:23)
[2020-11-14] MEDS: Insulin DETEMIR 100 UNIT/ML X5UNITS SUBQ SCH (20:23)
[2020-11-15 02:54] LABS: Basophils % 0.2 %; Eosinophils # 0.1 K/mcL (0.0-0.6); Hemoglobin 8.4 g/dL (12.9-16.9); Immature Granulocytes % 0.4 % (0-4); Lymphocytes % 11.9 %; Mean Corpuscular Hemoglobin 25.7 pg (28.0-33.3); Mean Corpuscular Volume 88.7 fL (83.0-100.0); Mean Platelet Volume 9.9 fL (9.4-12.4); Monocytes # 0.5 K/mcL (0.0-1.3); Monocytes % 6.5 %; Neutrophils # 6.7 K/mcL (1.6-8.9); Platelet Count 194 K/mcL (140-400); Red Blood Count 3.27 M/mcL (4.19-5.50); Red Cell Distribution Width 19.4 % (11.5-14.5); White Blood Count 8.3 K/mcL (4.3-11.1)
[2020-11-15 03:10] LABS: BUN/Creatinine Ratio 16 (6-26); Blood Urea Nitrogen 21 mg/dL (8-23); Calcium 8.5 mg/dL (8.6-10.3); Carbon Dioxide 30 mEq/L (23-29); Chloride 102 mEq/L (98-107); Glucose 123 mg/dL (70-105); Magnesium 2.1 mg/dL (1.6-2.6); Osmolality,Calculated 292 (280-300); Phosphorous 3.3 mg/dL (2.7-4.5); Potassium 3.7 mEq/L (3.5-5.1); Sodium 139 mEq/L (136-145); eGFR For African Americans > 60 (> 60); eGFR For Non-African Americans 52 (> 60)
[2020-11-15] MEDS: Insulin LISPRO 300 UNITS/3 ML VIAL SUBQ SCH ×4 (07:32→20:58)
[2020-11-15] MEDS: Ranolazine 500 MG TAB.ER.12H PO SCH ×2 (07:48→20:58)
[2020-11-15] MEDS: BuPROPion XL (24 HR) 150 MG TABLET PO SCH (07:48)
[2020-11-15] MEDS: FLUoxetine 20 MG CAPSULE PO SCH (07:48)
[2020-11-15] MEDS: Loratadine 10 MG TABLET PO SCH (07:49)
[2020-11-15] MEDS: Magnesium Oxide 400 MG TABLET PO SCH ×2 (07:49→20:57)
[2020-11-15] MEDS: Cholecalciferol (D-3) 1,000 UNIT (25MCG) TABLET PO SCH (07:49)
[2020-11-15] MEDS: Ascorbic Acid 500 MG TABLET PO SCH (07:49)
[2020-11-15] MEDS: Folic Acid 1 MG TABLET PO SCH (07:49)
[2020-11-15] MEDS: Apixaban 5 MG TABLET PO SCH ×2 (07:50→20:57)
[2020-11-15] MEDS: Levothyroxine 25 MCG TABLET PO SCH (07:50)
[2020-11-15] MEDS: Cyanocobalamin (B-12) 1,000 MCG TABLET PO SCH (07:50)
[2020-11-15] MEDS: polyethylene glycoL 3350 17 GM POWD.PACK PO SCH (07:51)
[2020-11-15] MEDS: Furosemide 40 MG/4 ML VIAL IVP SCH ×2 (07:57→17:23)
[2020-11-15] MEDS: Budesonide/Formoterol 80/4.5 1 PUFF INH IH SCH ×2 (11:12→20:25)
[2020-11-15 13:20] LABS: RBC,Pleural Fluid < 2000 RBC/mcL
[2020-11-15 13:21] LABS: Appearance of Pleural Fl Hazy (Clear)
[2020-11-15 13:50] LABS: Total Protein,Pleural Fluid 2.2 g/dL
[2020-11-15 14:36] LABS: Basophils,Pleural Fluid 0 %
[2020-11-15] MEDS: Insulin DETEMIR 100 UNIT/ML X5UNITS SUBQ SCH (20:58)
[2020-11-16 06:20] LABS: Basophils % 0.4 %; Eosinophils # 0.1 K/mcL (0.0-0.6); Eosinophils % 1.4 %; Hematocrit 28.5 % (37.5-50.1); Hemoglobin 8.3 g/dL (12.9-16.9); Immature Granulocytes % 0.4 % (0-4); Lymphocytes # 0.9 K/mcL (0.6-4.6); Lymphocytes % 12.1 %; Mean Corpuscular HGB Conc 29.1 g/dL (31.6-35.5); Mean Corpuscular Hemoglobin 25.7 pg (28.0-33.3); Mean Corpuscular Volume 88.2 fL (83.0-100.0); Mean Platelet Volume 10.1 fL (9.4-12.4); Monocytes # 0.6 K/mcL (0.0-1.3); Monocytes % 7.7 %; Neutrophils # 6.1 K/mcL (1.6-8.9); Platelet Count 190 K/mcL (140-400); Red Blood Count 3.23 M/mcL (4.19-5.50); White Blood Count 7.8 K/mcL (4.3-11.1)
[2020-11-16 06:32] LABS: BUN/Creatinine Ratio 18 (6-26); Blood Urea Nitrogen 23 mg/dL (8-23); Calcium 8.8 mg/dL (8.6-10.3); Carbon Dioxide 30 mEq/L (23-29); Chloride 103 mEq/L (98-107); Glucose 114 mg/dL (70-105); Magnesium 2.2 mg/dL (1.6-2.6); Osmolality,Calculated 293 (280-300); Phosphorous 3.3 mg/dL (2.7-4.5); Potassium 3.8 mEq/L (3.5-5.1); Sodium 139 mEq/L (136-145); eGFR For African Americans > 60 (> 60); eGFR For Non-African Americans 53 (> 60)
[2020-11-16] MEDS: Insulin LISPRO 300 UNITS/3 ML VIAL SUBQ SCH ×4 (07:40→20:52)
[2020-11-16] MEDS: Cyanocobalamin (B-12) 1,000 MCG TABLET PO SCH (07:52)
[2020-11-16] MEDS: Ascorbic Acid 500 MG TABLET PO SCH (07:53)
[2020-11-16] MEDS: FLUoxetine 20 MG CAPSULE PO SCH (07:53)
[2020-11-16] MEDS: Folic Acid 1 MG TABLET PO SCH (07:53)
[2020-11-16] MEDS: Cholecalciferol (D-3) 1,000 UNIT (25MCG) TABLET PO SCH (07:54)
[2020-11-16] MEDS: Magnesium Oxide 400 MG TABLET PO SCH ×2 (07:54→20:51)
[2020-11-16] MEDS: Ranolazine 500 MG TAB.ER.12H PO SCH ×2 (07:55→20:51)
[2020-11-16] MEDS: BuPROPion XL (24 HR) 150 MG TABLET PO SCH (07:55)
[2020-11-16] MEDS: Furosemide 40 MG TABLET PO SCH ×2 (07:56→17:23)
[2020-11-16] MEDS: Levothyroxine 25 MCG TABLET PO SCH (07:56)
[2020-11-16] MEDS: Loratadine 10 MG TABLET PO SCH (07:58)
[2020-11-16] MEDS: Apixaban 5 MG TABLET PO SCH ×2 (07:59→20:51)
[2020-11-16] MEDS: polyethylene glycoL 3350 17 GM POWD.PACK PO SCH (08:00)
[2020-11-16] MEDS: Budesonide/Formoterol 80/4.5 1 PUFF INH IH SCH ×2 (10:46→21:54)
[2020-11-16] MEDS: Insulin DETEMIR 100 UNIT/ML X5UNITS SUBQ SCH (20:52)
[2020-11-17 02:52] LABS: Hematocrit 29.2 % (37.5-50.1); Hemoglobin 8.4 g/dL (12.9-16.9)
[2020-11-17 03:20] LABS: BUN/Creatinine Ratio 16 (6-26); Blood Urea Nitrogen 20 mg/dL (8-23); Calcium 8.8 mg/dL (8.6-10.3); Carbon Dioxide 28 mEq/L (23-29); Chloride 101 mEq/L (98-107); Glucose 126 mg/dL (70-105); Osmolality,Calculated 290 (280-300); Potassium 3.9 mEq/L (3.5-5.1); Sodium 138 mEq/L (136-145); eGFR For African Americans > 60 (> 60); eGFR For Non-African Americans 54 (> 60)
[2020-11-17] MEDS: Budesonide/Formoterol 80/4.5 1 PUFF INH IH SCH ×2 (07:37→19:30)
[2020-11-17] MEDS: Insulin LISPRO 300 UNITS/3 ML VIAL SUBQ SCH ×4 (08:52→20:29)
[2020-11-17] MEDS: FLUoxetine 20 MG CAPSULE PO SCH (09:04)
[2020-11-17] MEDS: Loratadine 10 MG TABLET PO SCH (09:04)
[2020-11-17] MEDS: Levothyroxine 25 MCG TABLET PO SCH (09:04)
[2020-11-17] MEDS: polyethylene glycoL 3350 17 GM POWD.PACK PO SCH (09:04)
[2020-11-17] MEDS: Furosemide 40 MG TABLET PO SCH ×2 (09:04→17:44)
[2020-11-17] MEDS: Folic Acid 1 MG TABLET PO SCH (09:05)
[2020-11-17] MEDS: Cholecalciferol (D-3) 1,000 UNIT (25MCG) TABLET PO SCH (09:05)
[2020-11-17] MEDS: Cyanocobalamin (B-12) 1,000 MCG TABLET PO SCH (09:05)
[2020-11-17] MEDS: Ascorbic Acid 500 MG TABLET PO SCH (09:05)
[2020-11-17] MEDS: Magnesium Oxide 400 MG TABLET PO SCH ×2 (09:05→20:22)
[2020-11-17] MEDS: BuPROPion XL (24 HR) 150 MG TABLET PO SCH (09:05)
[2020-11-17] MEDS: Apixaban 5 MG TABLET PO SCH ×2 (09:05→20:22)
[2020-11-17] MEDS: Ranolazine 500 MG TAB.ER.12H PO SCH ×2 (09:05→20:21)
[2020-11-17] MEDS: Insulin DETEMIR 100 UNIT/ML X5UNITS SUBQ SCH (20:21)
[2020-11-18 03:11] LABS: Hematocrit 29.9 % (37.5-50.1); Hemoglobin 8.6 g/dL (12.9-16.9)
[2020-11-18] MEDS: Insulin LISPRO 300 UNITS/3 ML VIAL SUBQ SCH ×4 (07:55→22:17)
[2020-11-18] MEDS: Levothyroxine 25 MCG TABLET PO SCH (08:23)
[2020-11-18] MEDS: Apixaban 5 MG TABLET PO SCH ×2 (08:23→22:16)
[2020-11-18] MEDS: FLUoxetine 20 MG CAPSULE PO SCH (08:23)
[2020-11-18] MEDS: Ascorbic Acid 500 MG TABLET PO SCH (08:23)
[2020-11-18] MEDS: BuPROPion XL (24 HR) 150 MG TABLET PO SCH (08:23)
[2020-11-18] MEDS: Cholecalciferol (D-3) 1,000 UNIT (25MCG) TABLET PO SCH (08:24)
[2020-11-18] MEDS: Ranolazine 500 MG TAB.ER.12H PO SCH ×2 (08:25→22:17)
[2020-11-18] MEDS: Furosemide 40 MG TABLET PO SCH ×2 (08:25→16:58)
[2020-11-18] MEDS: Folic Acid 1 MG TABLET PO SCH (08:25)
[2020-11-18] MEDS: Magnesium Oxide 400 MG TABLET PO SCH ×2 (08:26→22:16)
[2020-11-18] MEDS: Cyanocobalamin (B-12) 1,000 MCG TABLET PO SCH (08:26)
[2020-11-18] MEDS: Loratadine 10 MG TABLET PO SCH (08:26)
[2020-11-18] MEDS: polyethylene glycoL 3350 17 GM POWD.PACK PO SCH (08:29)
[2020-11-18] MEDS: Budesonide/Formoterol 80/4.5 1 PUFF INH IH SCH ×2 (08:34→20:28)
[2020-11-18] MEDS: Insulin DETEMIR 100 UNIT/ML X5UNITS SUBQ SCH (22:17)
[2020-11-19 07:15] VITALS: BP 127/70
[2020-11-19] MEDS: polyethylene glycoL 3350 17 GM POWD.PACK PO SCH (07:58)
[2020-11-19] MEDS: Ranolazine 500 MG TAB.ER.12H PO SCH (07:59)
[2020-11-19] MEDS: Cholecalciferol (D-3) 1,000 UNIT (25MCG) TABLET PO SCH (07:59)
[2020-11-19] MEDS: Apixaban 5 MG TABLET PO SCH (08:01)
[2020-11-19] MEDS: Magnesium Oxide 400 MG TABLET PO SCH (08:01)
[2020-11-19] MEDS: Levothyroxine 25 MCG TABLET PO SCH (08:01)
[2020-11-19] MEDS: Furosemide 40 MG TABLET PO SCH (08:02)
[2020-11-19] MEDS: Folic Acid 1 MG TABLET PO SCH (08:02)
[2020-11-19] MEDS: Ascorbic Acid 500 MG TABLET PO SCH (08:02)
[2020-11-19] MEDS: Loratadine 10 MG TABLET PO SCH (08:02)
[2020-11-19] MEDS: FLUoxetine 20 MG CAPSULE PO SCH (08:02)
[2020-11-19] MEDS: Cyanocobalamin (B-12) 1,000 MCG TABLET PO SCH (08:03)
[2020-11-19] MEDS: BuPROPion XL (24 HR) 150 MG TABLET PO SCH (08:03)
[2020-11-19] MEDS: Insulin LISPRO 300 UNITS/3 ML VIAL SUBQ SCH ×2 (08:04→11:43)
[2020-11-19] MEDS: Budesonide/Formoterol 80/4.5 1 PUFF INH IH SCH (09:09)
== END 2020-11-19 13:08 | DRG 291 ==
LOC: 3BNU → SUATTDRO 23:15
PROVIDERS: ADMIT Internal Medicine; ATTEND Internal Medicine

== ENCOUNTER 2020-12-11 12:55 | Observation (INO) ==
[2020-12-11] MEDS ORDERED: Acetaminophen 325 MG TABLET PO PRN (15:56)
[2020-12-11] MEDS ORDERED: Ondansetron 4 MG/2 ML VIAL IVP PRN (15:56)
[2020-12-11] MEDS ORDERED: Dextrose Gel 15 GM/37.5 ML TUBE PO PRN ×2 (16:21)
[2020-12-11] MEDS ORDERED: D5% in Water 1,000 ML IVC PRN (16:21)
[2020-12-11] MEDS ORDERED: *HR* Dextrose 50 % in Water (Vial) 50 ML VIAL IVP PRN (16:21)
[2020-12-11] MEDS: Azithromycin 250 MG TABLET PO SCH (17:21)
[2020-12-11] MEDS: Furosemide 40 MG/4 ML VIAL IVP SCH (17:22)
[2020-12-11] MEDS: Insulin LISPRO 300 UNITS/3 ML VIAL SUBQ SCH ×2 (17:22→20:32)
[2020-12-11] MEDS: Budesonide/Formoterol 80/4.5 1 PUFF INH IH SCH ×2 (19:50→19:52)
[2020-12-11] MEDS: Ranolazine 500 MG TAB.ER.12H PO SCH (20:29)
[2020-12-11] MEDS: Apixaban 5 MG TABLET PO SCH (20:31)
[2020-12-11] MEDS: Insulin DETEMIR 100 UNIT/ML X5UNITS SUBQ SCH (20:32)
[2020-12-12 02:25] LABS: Hematocrit 30.8 % (37.5-50.1); Mean Corpuscular HGB Conc 29.2 g/dL (31.6-35.5); Mean Corpuscular Hemoglobin 24.6 pg (28.0-33.3); Mean Corpuscular Volume 84.2 fL (83.0-100.0); Mean Platelet Volume 10.6 fL (9.4-12.4); Platelet Count 173 K/mcL (140-400); Red Blood Count 3.66 M/mcL (4.19-5.50); Red Cell Distribution Width 18.6 % (11.5-14.5); White Blood Count 5.8 K/mcL (4.3-11.1)
[2020-12-12 02:44] LABS: BUN/Creatinine Ratio 20 (6-26); Blood Urea Nitrogen 28 mg/dL (8-23); Calcium 8.9 mg/dL (8.6-10.3); Carbon Dioxide 26 mEq/L (23-29); Chloride 102 mEq/L (98-107); Glucose 291 mg/dL (70-105); Magnesium 2.1 mg/dL (1.6-2.6); Osmolality,Calculated 300 (280-300); Phosphorous 2.9 mg/dL (2.7-4.5); Potassium 4.4 mEq/L (3.5-5.1); Sodium 137 mEq/L (136-145); eGFR For African Americans > 60 (> 60); eGFR For Non-African Americans 50 (> 60)
[2020-12-12 02:46] LABS: Troponin I 0.03 ng/mL (< 0.04)
[2020-12-12] MEDS: Ranolazine 500 MG TAB.ER.12H PO SCH ×2 (08:55→20:04)
[2020-12-12] MEDS: Apixaban 5 MG TABLET PO SCH ×2 (08:56→20:03)
[2020-12-12] MEDS: predniSONE 20 MG TABLET PO SCH (08:56)
[2020-12-12] MEDS: FLUoxetine 20 MG CAPSULE PO SCH (08:57)
[2020-12-12] MEDS: polyethylene glycoL 3350 17 GM POWD.PACK PO SCH (08:57)
[2020-12-12] MEDS: Loratadine 10 MG TABLET PO SCH (08:57)
[2020-12-12] MEDS: BuPROPion XL (24 HR) 150 MG TABLET PO SCH (08:57)
[2020-12-12] MEDS: Furosemide 40 MG/4 ML VIAL IVP SCH ×3 (08:58→16:34)
[2020-12-12] MEDS: Insulin LISPRO 300 UNITS/3 ML VIAL SUBQ SCH ×4 (08:59→20:05)
[2020-12-12] MEDS ORDERED: Levothyroxine 25 MCG TABLET PO SCH (09:00)
[2020-12-12] MEDS: Budesonide/Formoterol 80/4.5 1 PUFF INH IH SCH ×2 (11:24→20:09)
[2020-12-12] MEDS: Azithromycin 250 MG TABLET PO SCH (16:35)
[2020-12-12] MEDS: Insulin DETEMIR 100 UNIT/ML X5UNITS SUBQ SCH (20:04)
[2020-12-13 02:17] LABS: Calcium 8.9 mg/dL (8.6-10.3); Potassium 4.3 mEq/L (3.5-5.1)
[2020-12-13] MEDS: Levothyroxine 25 MCG TABLET PO SCH (06:01)
[2020-12-13] MEDS: Budesonide/Formoterol 80/4.5 1 PUFF INH IH SCH ×2 (07:44→22:55)
[2020-12-13] MEDS: Insulin LISPRO 300 UNITS/3 ML VIAL SUBQ SCH ×4 (08:44→20:21)
[2020-12-13] MEDS: Apixaban 5 MG TABLET PO SCH ×2 (08:47→20:20)
[2020-12-13] MEDS: predniSONE 20 MG TABLET PO SCH (08:47)
[2020-12-13] MEDS: BuPROPion XL (24 HR) 150 MG TABLET PO SCH (08:47)
[2020-12-13] MEDS: polyethylene glycoL 3350 17 GM POWD.PACK PO SCH (08:47)
[2020-12-13] MEDS: Loratadine 10 MG TABLET PO SCH (08:47)
[2020-12-13] MEDS: FLUoxetine 20 MG CAPSULE PO SCH (08:48)
[2020-12-13] MEDS: Furosemide 40 MG/4 ML VIAL IVP SCH ×3 (08:48→16:35)
[2020-12-13] MEDS: Ranolazine 500 MG TAB.ER.12H PO SCH ×2 (08:48→20:20)
[2020-12-13] MEDS: Azithromycin 250 MG TABLET PO SCH (16:35)
[2020-12-13] MEDS: Insulin DETEMIR 100 UNIT/ML X5UNITS SUBQ SCH (20:21)
[2020-12-14 04:12] LABS: BUN/Creatinine Ratio 29 (6-26); Blood Urea Nitrogen 38 mg/dL (8-23); Calcium 9.1 mg/dL (8.6-10.3); Carbon Dioxide 31 mEq/L (23-29); Chloride 100 mEq/L (98-107); Glucose 161 mg/dL (70-105); Osmolality,Calculated 301 (280-300); Potassium 3.7 mEq/L (3.5-5.1); Sodium 139 mEq/L (136-145); eGFR For African Americans > 60 (> 60); eGFR For Non-African Americans 53 (> 60)
[2020-12-14] MEDS: Levothyroxine 25 MCG TABLET PO SCH (05:37)
[2020-12-14] MEDS: polyethylene glycoL 3350 17 GM POWD.PACK PO SCH (07:35)
[2020-12-14] MEDS: Loratadine 10 MG TABLET PO SCH (07:35)
[2020-12-14] MEDS: Apixaban 5 MG TABLET PO SCH ×2 (07:35→21:06)
[2020-12-14] MEDS: BuPROPion XL (24 HR) 150 MG TABLET PO SCH (07:35)
[2020-12-14] MEDS: predniSONE 20 MG TABLET PO SCH (07:36)
[2020-12-14] MEDS: Furosemide 40 MG/4 ML VIAL IVP SCH ×3 (07:36→16:18)
[2020-12-14] MEDS: FLUoxetine 20 MG CAPSULE PO SCH (07:36)
[2020-12-14] MEDS: Ranolazine 500 MG TAB.ER.12H PO SCH ×2 (07:36→21:05)
[2020-12-14] MEDS: Insulin LISPRO 300 UNITS/3 ML VIAL SUBQ SCH ×3 (07:37→16:19)
[2020-12-14] MEDS: Budesonide/Formoterol 80/4.5 1 PUFF INH IH SCH ×2 (07:46→20:13)
[2020-12-14] MEDS: Azithromycin 250 MG TABLET PO SCH (16:19)
[2020-12-14] MEDS: Insulin DETEMIR 100 UNIT/ML X5UNITS SUBQ SCH (21:06)
[2020-12-15] MEDS: Levothyroxine 25 MCG TABLET PO SCH (05:36)
[2020-12-15] MEDS: Insulin LISPRO 300 UNITS/3 ML VIAL SUBQ SCH ×3 (07:36→16:14)
[2020-12-15] MEDS: polyethylene glycoL 3350 17 GM POWD.PACK PO SCH (07:36)
[2020-12-15] MEDS: Furosemide 40 MG/4 ML VIAL IVP SCH (07:36)
[2020-12-15] MEDS: Ranolazine 500 MG TAB.ER.12H PO SCH ×2 (07:36→20:47)
[2020-12-15] MEDS: BuPROPion XL (24 HR) 150 MG TABLET PO SCH (07:37)
[2020-12-15] MEDS: Loratadine 10 MG TABLET PO SCH (07:37)
[2020-12-15] MEDS: predniSONE 20 MG TABLET PO SCH (07:37)
[2020-12-15] MEDS: FLUoxetine 20 MG CAPSULE PO SCH (07:37)
[2020-12-15] MEDS: Apixaban 5 MG TABLET PO SCH ×2 (07:37→20:47)
[2020-12-15] MEDS: Bumetanide 1 MG TABLET PO SCH ×2 (08:58→16:14)
[2020-12-15 09:02] LABS: BUN/Creatinine Ratio 28 (6-26); Blood Urea Nitrogen 33 mg/dL (8-23); Calcium 9.3 mg/dL (8.6-10.3); Carbon Dioxide 35 mEq/L (23-29); Chloride 99 mEq/L (98-107); Glucose 45 mg/dL (70-105); Osmolality,Calculated 296 (280-300); Potassium 3.2 mEq/L (3.5-5.1); Sodium 141 mEq/L (136-145); eGFR For African Americans > 60 (> 60); eGFR For Non-African Americans 59 (> 60)
[2020-12-15] MEDS: Budesonide/Formoterol 80/4.5 1 PUFF INH IH SCH ×2 (11:36→22:26)
[2020-12-15] MEDS: Azithromycin 250 MG TABLET PO SCH (16:14)
[2020-12-15] MEDS: Insulin DETEMIR 100 UNIT/ML X5UNITS SUBQ SCH (20:43)
[2020-12-16] MEDS: Levothyroxine 25 MCG TABLET PO SCH (06:13)
[2020-12-16 07:22] VITALS: BP 135/65
[2020-12-16] MEDS: polyethylene glycoL 3350 17 GM POWD.PACK PO SCH (07:53)
[2020-12-16] MEDS: BuPROPion XL (24 HR) 150 MG TABLET PO SCH (07:53)
[2020-12-16] MEDS: predniSONE 20 MG TABLET PO SCH (07:53)
[2020-12-16] MEDS: Apixaban 5 MG TABLET PO SCH (07:53)
[2020-12-16] MEDS: Ranolazine 500 MG TAB.ER.12H PO SCH (07:53)
[2020-12-16] MEDS: Loratadine 10 MG TABLET PO SCH (07:53)
[2020-12-16] MEDS: FLUoxetine 20 MG CAPSULE PO SCH (07:53)
[2020-12-16] MEDS: Bumetanide 1 MG TABLET PO SCH (07:53)
[2020-12-16] MEDS: Budesonide/Formoterol 80/4.5 1 PUFF INH IH SCH (10:55)
[2020-12-16] MEDS: Insulin LISPRO 300 UNITS/3 ML VIAL SUBQ SCH ×2 (11:05→11:49)
== END 2020-12-16 13:20 | disposition hospice, home (50) ==
LOC: 2ANU → SUATTDRO 14:07
PROVIDERS: ADMIT Internal Medicine; ATTEND Internal Medicine